=== PATIENT | female | born 1945 | race African-American/Black ===

== ENCOUNTER 2017-11-11 15:25 | Inpatient (IN) | payer OTHER ==
--- NOTE | 2017-11-11 16:20 | PDOC ---
History of Present Illness - General Chief Complaint: Pain, Acute Stated Complaint: ABD PAIN Time Seen by Provider: 11/11/17 16:14 - History of Present Illness Initial Comments: 11/11/17 20:03 The patient is a 71 year old female with a significant past medical history of HTN, DM, Afib on xarelto, who was sent from [facility] for evaluation of a lower abdominal abscess. Pt is a poor historian, does not know why she is here. Per Dr. Brooks, pt has lower abdominal wall abscess that Dr. Howell will be I&D-ing in the morning. Pt sent in for admission and IV antibiotics. Past History - Past Medical History Allergies/Adverse Reactions: Allergies Allergy/AdvReac Type Severity Reaction Status Date / Time latex Allergy Verified 11/11/17 17:09 shellfish derived Allergy Verified 11/11/17 17:09 Sulfa (Sulfonamide Allergy Verified 11/11/17 17:09 Antibiotics) [Sulfa(Sulfonamide Antibiotics)] Home Medications: Ambulatory Orders Acetaminophen [Tylenol] 650 mg PO Q6H PRN 12/26/14 Atenolol [Tenormin -] 25 mg PO DAILY 12/26/14 Enalapril Maleate [Vasotec] 2.5 mg PO DAILY 12/26/14 Insulin (Levemir) [Levemir Flexpen -] 45 units SQ AM 12/26/14 Insulin Lispro Protamin/Lispro [Humalog Mix 50-50 Vial] 18 unit SQ TID 12/26/14 Levothyroxine [Synthroid -] 50 mcg PO DAILY 12/26/14 Ranitidine HCl [Zantac] 150 mg PO BID 12/26/14 Ferrous Sulfate [Feosol] 325 mg PO BID ud 12/27/14 Atorvastatin Ca [Lipitor] 80 mg PO HS 09/24/17 Fenofibric Acid (Choline) [Trilipix] 135 mg PO DAILY 09/24/17 Insulin (Levemir) [Levemir Flexpen -] 50 units SQ HS 09/24/17 Magnesium Hydroxide [Milk of Magnesia] 400 mg PO DAILY PRN 09/24/17 Multivitamin [One Daily] 1 each PO DAILY 09/24/17 Sodium Phosphate/Na Biphos [Fleet Adult Rectal Enema -] 133 ml RC DAILY PRN Vit A/Vitamin D3/E/Aloe V/Zinc [Periguard Ointment] 100 gm TP TID 09/24/17 metFORMIN HCL [Glucophage -] 1,000 mg PO BID 09/24/17 Apixaban [Eliquis] 5 mg PO BID #90 tablet 09/30/17 Cefuroxime Axetil [Ceftin -] 500 mg PO Q12H #10 tablet 09/30/17 Anemia: Yes Asthma: No Cancer: No Cardiac Disorders: Yes (A-fib) COPD: No CHF: No Dementia: Yes Diabetes: Yes GI Disorders: Yes (GERD) Disorders: Yes (UTIs) HTN: Yes Hypercholesterolemia: Yes Psychiatric Problems: Yes (Depression) Thyroid Disease: Yes (Hypothyroid) - Surgical History Abdominal Surgery: Yes (umbilical hernia repair) Orthopedic Surgery: (RIGHT FEMORAL HEMIARTHROPLASTY) - Immunization History Immunization Up to Date: Yes - Suicide/Smoking/Psychosocial Hx Smoking Status: No Smoking History: Never smoked Have you smoked in the past 12 months: No Number of Cigarettes Smoked Daily: 0 Information on smoking cessation initiated: No Hx Alcohol Use: No Drug/Substance Use Hx: No Substance Use Type: Alcohol Hx Substance Use Treatment: No Review of Systems - Review of Systems Comments:: 11/11/17 20:07 UTO *Physical Exam - Vital Signs Last Vital Signs Temp Pulse Resp BP Pulse Ox 98.6 F 60 16 126/54 98 11/11/17 15:26 11/11/17 15:26 11/11/17 15:26 11/11/17 15:26 11/11/17 15:26 - Physical Exam Comments: 11/11/17 20:07 "GENERAL: Awake, alert, and oriented x2, smiling, in no acute distress EYES: PERRLA, EOMI, sclera anicteric, conjunctiva clear LUNGS: Breath sounds equal, clear to auscultation bilaterally. No wheezes, and no crackles HEART: Regular rate and rhythm, normal S1 and S2, no murmurs, rubs or gallops ABDOMEN: Soft, no ttp, +2x2cm oval ulcer with purulent drainage just left inferiolateral to the umbulicus with some surrounding induration EXTREMITIES: Normal range of motion, no edema. No tenderness NEUROLOGICAL: AAOx2 at baseline. Normal speech, cranial nerves intact, moves all extremities x4 SKIN: Other than abscess noted above, warm, Dry, normal turgor, no rashes or lesions noted. Heart Score/ECG Review #1 11/11/17 17:48 Twelve-lead EKG was performed and reviewed by me. Normal sinus rhythm, rate 65. Normal axis. Diffuse T-wave inversions in all leads except lead 3. No ST elevations. When compared to EKG from 09/24/2017 no significant change. ED Treatment Course - LABORATORY CBC & Chemistry Diagram: 11/11/17 16:20 11/11/17 18:55 Medical Decision Making - Medical Decision Making 11/11/17 17:49 72yo F hx HTN, DM, Afib on xarelto presents to the ED for admission for abdominal wall abscess. Dr. Howell aware, recommends IV abx and will debride in the AM. Vitals wnl. Exam with mild diffuse abd discomfort. Pt to be admitted. 11/11/17 21:31 CTAP ordered as last CT was 09/27 Case signed out to [employer] OFF[employer] Merry, pt admitted to Dr. Arenas (admitting for Dr. Brooks) Case discussed in detail with admitting physician including history, physical exam and ancillary studies. Admitting physician has assumed care for the patient, will follow all pending diagnostics and will complete the evaluation and treatment. *DC/Admit/Observation/Transfer Diagnosis at time of Disposition: Abdominal wall abscess - Discharge Dispostion Condition at time of disposition: Stable Decision to Admit order: Yes - Referrals Referrals: Shanae Brooks MD [Primary Care Provider] - - Patient Instructions - Post Discharge Activity - Attestations Physician Attestion: 11/11/17 21:50 I, Dr. Aldo Michael MD, attest that this document has been prepared under my direction and personally reviewed by me in its entirety. I further attest, that it accurately reflects all work, treatment, procedures and medical decision -making performed by me.
[2017-11-11 16:44] LABS: BASO % 0.9 % (0-2.0); EOS % 5.3 % (0-4.5); HEMATOCRIT 29.2 % (32.4-45.2); HEMOGLOBIN 9.6 GM/dL (10.7-15.3); LYMPH % 25.8 % (8-40); MCH 31.4 pg (25.7-33.7); MCHC 32.9 g/dl (32.0-36.0); MEAN CELL VOLUME 95.5 fl (80-96); MEAN PLT VOLUME 8.4 fl (7.5-11.1); MONO % 7.2 % (3.8-10.2); NEUT % 60.8 % (42.8-82.8); PLATELET COUNT 457 K/MM3 (134-434); RBC 3.06 M/mm3 (3.60-5.2); RDW 13.7 % (11.6-15.6); WHITE BLOOD COUNT 8.3 K/mm3 (4.0-10.0)
[2017-11-11] MEDS ORDERED: VANCOMYCIN 1,000 MG in DEXTROSE 5%-WATER - 250 ML IVPB ONE (17:27)
[2017-11-11] MEDS ORDERED: PIPERACILLIN/TAZOB 4.5 GM 4.5 GM in DEXTROSE 5%-WATER - 100 ML IVPB ONE (17:27)
[2017-11-11] MEDS ORDERED: VANCOMYCIN 1 GRAM (PRE-DOCKED) 1,000 MG/250 ML BAG IVPB ONE (17:33)
[2017-11-11] MEDS ORDERED: PIPERACILLIN/TAZOB 4.5 GM 4.5 GM/100 ML BAG IVPB ONE (17:33)
[2017-11-11] MEDS ORDERED: SODIUM CHLORIDE 0.9% 1000 ML INFUS.BAG IV ONE ×2 (17:47→20:16)
[2017-11-11 19:39] LABS: ALBUMIN 2.9 g/dl (3.4-5.0); ALK PHOS 42 U/L (45-117); ANION GAP 10 (8-16); BILIRUBIN,TOTAL 0.3 mg/dL (0.2-1.0); BLOOD UREA NITROGEN 62 mg/dL (7-18); CALCIUM 9.3 mg/dL (8.5-10.1); CHLORIDE 110 mmol/L (98-107); CO2 22 mmol/L (21-32); POTASSIUM 5.4 mmol/L (3.5-5.1); SGOT/AST 16 U/L (15-37); SGPT/ALT 13 U/L (12-78); SODIUM 142 mmol/L (136-145); TOT PROT 6.8 g/dl (6.4-8.2)
[2017-11-11 19:49] LABS: GLUCOSE,RANDOM 333 mg/dL (74-106)
--- NOTE | 2017-11-11 20:48 | CONSULT ---
- Consultation REQUESTING PROVIDER: CONSULT REQUEST: We have been asked to surgically evaluate this patient for ( specify). PCP: HISTORY OF PRESENT ILLNESS: CTSP for evaluation and management of a soft tissue infection of the abdominal wall; new since patients last inpatient stay here; she cannot provide a hx.; she is a resident of [facility]. PMHx: IDDM/HTN/hypothyroid/hyperlipidemiaDVT PSHx: IVC filter Home Medications Medication Instructions Recorded Acetaminophen [Tylenol] 650 mg PO Q6H PRN 12/26/14 Atenolol [Tenormin -] 25 mg PO DAILY 12/26/14 Enalapril Maleate [Vasotec] 2.5 mg PO DAILY 12/26/14 Insulin (Levemir) [Levemir Flexpen 45 units SQ AM 12/26/14 -] Insulin Lispro Protamin/Lispro 18 unit SQ TID 12/26/14 [Humalog Mix 50-50 Vial] Levothyroxine [Synthroid -] 50 mcg PO DAILY 12/26/14 Ranitidine HCl [Zantac] 150 mg PO BID 12/26/14 Ferrous Sulfate [Feosol] 325 mg PO BID ud 12/27/14 Atorvastatin Ca [Lipitor] 80 mg PO HS 09/24/17 Fenofibric Acid (Choline) 135 mg PO DAILY 09/24/17 [Trilipix] Insulin (Levemir) [Levemir Flexpen 50 units SQ HS 09/24/17 -] Magnesium Hydroxide [Milk of 400 mg PO DAILY PRN 09/24/17 Magnesia] Multivitamin [One Daily] 1 each PO DAILY 09/24/17 Sodium Phosphate/Na Biphos [Fleet 133 ml RC DAILY PRN 09/24/17 Adult Rectal Enema -] Vit A/Vitamin D3/E/Aloe V/Zinc 100 gm TP TID 09/24/17 [Periguard Ointment] metFORMIN HCL [Glucophage -] 1,000 mg PO BID 09/24/17 Apixaban [Eliquis] 5 mg PO BID #90 tablet 09/30/17 Cefuroxime Axetil [Ceftin -] 500 mg PO Q12H #10 tablet 09/30/17 Allergies Allergy/AdvReac Type Severity Reaction Status Date / Time latex Allergy Verified 11/11/17 17:09 shellfish derived Allergy Verified 11/11/17 17:09 Sulfa (Sulfonamide Allergy Verified 11/11/17 17:09 Antibiotics) [Sulfa(Sulfonamide Antibiotics)] REVIEW OF SYSTEMS: unobtainable PHYSICAL EXAM: GENERAL: Awake, alert, and oriented x 2, in no acute distress. HEAD: Normal with no signs of trauma. EYES: sclera anicteric, conjunctiva clear. NECK: Normal ROM, supple without lymphadenopathy, JVD, or masses. ABDOMEN: Soft, nontender, not distended, normoactive bowel sounds, no guarding, no rebound, no masses. No organomegaly. Soft tissue infection of the skin of the left lower abdominal wall; no crepitus/non viable skin and subcutaneous fat are present; no fluctuance MUSCULOSKELETAL: Normal ROM at all joints. No bony deformities or tenderness. No CVA tenderness. UPPER EXTREMITIES: 2+ pulses, warm, well-perfused. No cyanosis. Cap refill <2 seconds. No peripheral edema. LOWER EXTREMITIES: 2+ pulses, warm, well-perfused. No calf tenderness. No peripheral edema. NEUROLOGICAL: Normal speech, gait not observed. PSYCH: Cooperative. Good eye contact. Inappropriate mood and affect. SKIN: Warm, dry, normal turgor, no rashes or lesions noted except as above. Vital Signs Temperature 98.0 F 11/11/17 18:53 Pulse Rate 18 L 11/11/17 18:53 Respiratory Rate 18 11/11/17 18:53 Blood Pressure 118/78 11/11/17 18:53 O2 Sat by Pulse Oximetry (%) 98 11/11/17 18:53 Lab Results WBC 8.3 K/mm3 (4.0-10.0) 11/11/17 16:20 RBC 3.06 M/mm3 (3.60-5.2) L 11/11/17 16:20 Hgb 9.6 GM/dL (10.7-15.3) L 11/11/17 16:20 Hct 29.2 % (32.4-45.2) L 11/11/17 16:20 MCV 95.5 fl (80-96) 11/11/17 16:20 MCHC 32.9 g/dl (32.0-36.0) 11/11/17 16:20 RDW 13.7 % (11.6-15.6) 11/11/17 16:20 Plt Count 457 K/MM3 (134-434) H 11/11/17 16:20 Sodium 142 mmol/L (136-145) 11/11/17 18:55 Potassium 5.4 mmol/L (3.5-5.1) H 11/11/17 18:55 Chloride 110 mmol/L (98-107) H 11/11/17 18:55 Carbon Dioxide 22 mmol/L (21-32) 11/11/17 18:55 Anion Gap 10 (8-16) 11/11/17 18:55 BUN 62 mg/dL (7-18) H 11/11/17 18:55 Creatinine 2.0 mg/dL (0.55-1.02) H 11/11/17 18:55 Random Glucose 333 mg/dL (74-106) H* 11/11/17 18:55 Calcium 9.3 mg/dL (8.5-10.1) 11/11/17 18:55 Blood Type B POSITIVE 11/11/17 16:20 Antibody Screen Negative 11/11/17 16:20 labs reviewed IMP:soft tissue infection lower left abdominal wall;ARF; electrolyte abnormalities PLAN: Optimize patient as she will need to go to the OR for debridement of the abdominal wall 11/12/17; keep NPO after MN; will f/u.Will need IVF/IVABS/renal and medical evaluation. Gonzalo Howell MD FACS
--- NOTE | 2017-11-11 21:12 | HP ---
Admitting History and Physical - Admission Chief Complaint: Abdominal Abscess History of Present Illness: This is a 71 y/o woman from [facility] with a significant past medical history of HTN, DM, Afib (on Xarelto). Who presents to the ED for evaluation of a lower abdominal abscess, sent in for admission and IV antibiotics. Pt is a poor historian, does not know why she is here. Per Dr. Brooks, pt has lower abdominal wall abscess that Dr. Howell will take to the OR for an I&D in the morning. Patient denies fever, chills, cough, SOB, CP, N/V/D, dysuria. History Source: Medical Record, Transfer Record Limitations to Obtaining History: Poor Historian - Past Medical History Cardiovascular: Yes: AFIB, Deep Vein Thrombosis, HTN, Hyperlipdemia Heme/Onc: Yes: Anemia Endocrine: Yes: Diabetes Mellitus, Hypothyroidism - Advance Directives Advance Directives: Yes: MOLST (Do CPR, IV Fluids, Use ABX, Send to Hospital- Surrogate Tereso Sprague (daughter)) - Smoking History Smoking history: Never smoked Have you smoked in the past 12 months: No Aproximately how many cigarettes per day: 0 - Alcohol/Substance Use Hx Alcohol Use: No History of Substance Use: reports: None - Social History Usual Living Arrangement: Yes: Assisted ADL: Support Services 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 History of Recent Travel: No Home Medications - Allergies Allergies/Adverse Reactions: Allergies Allergy/AdvReac Type Severity Reaction Status Date / Time latex Allergy Verified 11/11/17 17:09 shellfish derived Allergy Verified 11/11/17 17:09 Sulfa (Sulfonamide Allergy Verified 11/11/17 17:09 Antibiotics) [Sulfa(Sulfonamide Antibiotics)] - Home Medications Home Medications: Ambulatory Orders Acetaminophen [Tylenol] 650 mg PO Q6H PRN 12/26/14 Atenolol [Tenormin -] 25 mg PO DAILY 12/26/14 Enalapril Maleate [Vasotec] 2.5 mg PO DAILY 12/26/14 Insulin (Levemir) [Levemir Flexpen -] 45 units SQ AM 12/26/14 Insulin Lispro Protamin/Lispro [Humalog Mix 50-50 Vial] 18 unit SQ TID 12/26/14 Levothyroxine [Synthroid -] 50 mcg PO DAILY 12/26/14 Ranitidine HCl [Zantac] 150 mg PO BID 12/26/14 Ferrous Sulfate [Feosol] 325 mg PO BID ud 12/27/14 Atorvastatin Ca [Lipitor] 80 mg PO HS 09/24/17 Fenofibric Acid (Choline) [Trilipix] 135 mg PO DAILY 09/24/17 Insulin (Levemir) [Levemir Flexpen -] 50 units SQ HS 09/24/17 Magnesium Hydroxide [Milk of Magnesia] 400 mg PO DAILY PRN 09/24/17 Multivitamin [One Daily] 1 each PO DAILY 09/24/17 Sodium Phosphate/Na Biphos [Fleet Adult Rectal Enema -] 133 ml RC DAILY PRN Vit A/Vitamin D3/E/Aloe V/Zinc [Periguard Ointment] 100 gm TP TID 09/24/17 metFORMIN HCL [Glucophage -] 1,000 mg PO BID 09/24/17 Apixaban [Eliquis] 5 mg PO BID #90 tablet 09/30/17 Cefuroxime Axetil [Ceftin -] 500 mg PO Q12H #10 tablet 09/30/17 Family Disease History - Family Disease History Family Disease History: Diabetes: Brother, Other: Sister Review of Systems Unable to obtain ROS, reason: Poor Historian Physical Examination Vital Signs: Vital Signs Temperature 98.0 F 11/11/17 18:53 Pulse Rate 18 L 11/11/17 18:53 Respiratory Rate 18 11/11/17 18:53 Blood Pressure 118/78 11/11/17 18:53 O2 Sat by Pulse Oximetry (%) 98 11/11/17 18:53 Constitutional: Yes: No Distress, Calm Eyes: Yes: WNL, Conjunctiva Clear, EOM Intact, PERRL HENT: Yes: WNL, Atraumatic, Normocephalic Neck: Yes: WNL, Supple, Trachea Midline Cardiovascular: Yes: Pulse Irregular, S1, S2 Respiratory: Yes: WNL, Regular, CTA Bilaterally Gastrointestinal: Yes: Normal Bowel Sounds, Distention, Tenderness Renal/: Yes: Incontinence Breast(s): Yes: WNL Musculoskeletal: Yes: WNL Extremities: Yes: WNL Peripheral Pulses WNL: Yes Wound/Incision: Yes: Dressing Removed (serous) Neurological: Yes: Alert, Confusion, Cran Nerves II-XII Intact Psychiatric: Yes: Alert Labs: CBC, BMP 11/11/17 16:20 11/11/17 18:55 Laboratory Results - last 24 hr 11/11/17 11/11/17 11/11/17 16:20 16:20 16:20 WBC 8.3 RBC 3.06 L Hgb 9.6 L Hct 29.2 L MCV 95.5 MCH 31.4 MCHC 32.9 RDW 13.7 Plt Count 457 H MPV 8.4 Absolute Neuts (auto) 5.1 Neutrophils % 60.8 Lymphocytes % 25.8 Monocytes % 7.2 Eosinophils % 5.3 H Basophils % 0.9 Nucleated RBC % 0 PTT (Actin FS) 31.1 Sodium Cancelled Potassium Cancelled Chloride Cancelled Carbon Dioxide Cancelled Anion Gap Cancelled BUN Cancelled Creatinine Cancelled Creat Clearance w eGFR Cancelled Random Glucose Cancelled Lactic Acid Calcium Cancelled Phosphorus Magnesium Cancelled Total Bilirubin Cancelled AST Cancelled ALT Cancelled Alkaline Phosphatase Cancelled Troponin I Cancelled Total Protein Cancelled Albumin Cancelled Lipase Cancelled Blood Type Antibody Screen 11/11/17 11/11/17 11/11/17 16:20 16:20 18:55 WBC RBC Hgb Hct MCV MCH MCHC RDW Plt Count MPV Absolute Neuts (auto) Neutrophils % Lymphocytes % Monocytes % Eosinophils % Basophils % Nucleated RBC % PTT (Actin FS) Sodium 142 Potassium 5.4 H Chloride 110 H Carbon Dioxide 22 Anion Gap 10 BUN 62 H Creatinine 2.0 H Creat Clearance w eGFR 24.56 Random Glucose 333 H* Lactic Acid 2.7 H* Calcium 9.3 Phosphorus Magnesium Total Bilirubin 0.3 AST 16 ALT 13 Alkaline Phosphatase 42 L Troponin I Total Protein 6.8 Albumin 2.9 L Lipase Blood Type B POSITIVE Antibody Screen Negative 11/11/17 11/11/17 11/12/17 18:55 20:00 05:55 WBC RBC Hgb Hct MCV MCH MCHC RDW Plt Count MPV Absolute Neuts (auto) Neutrophils % Lymphocytes % Monocytes % Eosinophils % Basophils % Nucleated RBC % PTT (Actin FS) Sodium Potassium Chloride Carbon Dioxide Anion Gap BUN Creatinine Creat Clearance w eGFR Random Glucose Lactic Acid 3.0 H* Calcium Phosphorus Magnesium Total Bilirubin AST ALT Alkaline Phosphatase Troponin I 0.26 H 0.26 H Total Protein Albumin Lipase Blood Type Antibody Screen 11/12/17 05:55 WBC RBC Hgb Hct MCV MCH MCHC RDW Plt Count MPV Absolute Neuts (auto) Neutrophils % Lymphocytes % Monocytes % Eosinophils % Basophils % Nucleated RBC % PTT (Actin FS) Sodium 144 Potassium 4.9 Chloride 114 H Carbon Dioxide 21 Anion Gap 9 BUN 48 H Creatinine 1.7 H Creat Clearance w eGFR 29.63 Random Glucose 209 H Lactic Acid Calcium 9.1 Phosphorus 2.3 L Magnesium 2.0 Total Bilirubin AST ALT Alkaline Phosphatase Troponin I Total Protein Albumin Lipase Blood Type Antibody Screen Intake & Output 11/09/17 11/10/17 11/11/17 11/12/17 23:59 23:59 23:59 23:59 Weight 56.427 kg Imaging - Results Chest X-ray: Report Reviewed (No acute pathology), Image Reviewed Cat Scan: Report Reviewed (subcutaneous edema along the right lateral aspect of the abdominal and to the pelvic wall, No drainable fluid collection is identified Moderate gastric distention Prominent rectal fecal retention/ impaction Cholelithiasis), Image Reviewed EKG: Image Reviewed Problem List - Problems (1) Sepsis Assessment/Plan: - Likely secondary to abdominal wall abscess - Criteria Met II: BUN 62, LA 2.7~ 3.0 - qSOFA- 0 - NS 500ml bolus x2 given in ED - Continue gentle IVF- monitor for HF - Trend LA - Continue Vancomycin and Zosyn - Blood Cultures-pending - Urine Culture-pending - Monitor CBC, BMP - Monitor vitals- maintain MAP > 65 Code(s): A41.9 - SEPSIS, UNSPECIFIED ORGANISM (2) Abdominal wall abscess Assessment/Plan: - CTAP- reviewed - Appreciate Surgical consult - Continue Zosyn, Vancomycin - Appreciate ID consult - Monitor CBC, BMP - Monitor vitals - NPO Code(s): L02.211 - CUTANEOUS ABSCESS OF ABDOMINAL WALL (3) Afib Assessment/Plan: - stable - [id number] 4 - EKG- NSR ST & T wave abnormality, prolonged QTc - Will hold Xarelto secondary to OR procedure in am - Heparin SQ for DVT ppx tonight Code(s): I48.91 - UNSPECIFIED ATRIAL FIBRILLATION Qualifiers: Atrial fibrillation type: chronic Qualified Code(s): I48.2 - Chronic atrial fibrillation (4) Elevated troponin Assessment/Plan: - Likely secondary to ischemic demand vs Sepsis - Serial Enzymes - Cardiology aware, following - On exam, pt denies CP, palpitations, SOB at present Code(s): R74.8 - ABNORMAL LEVELS OF OTHER SERUM ENZYMES (5) CKD (chronic kidney disease) stage 3, GFR 30-59 ml/min Assessment/Plan: -Continue to monitor and treat with interventions accordingly - Avoid nephrotoxic agents Code(s): N18.3 - CHRONIC KIDNEY DISEASE, STAGE 3 (MODERATE) (6) Dementia Assessment/Plan: - Fall Precautions Code(s): F03.90 - UNSPECIFIED DEMENTIA WITHOUT BEHAVIORAL DISTURBANCE (7) HTN (hypertension) Assessment/Plan: - stable - Monitor BP - Continue home meds Code(s): I10 - ESSENTIAL (PRIMARY) HYPERTENSION (8) IDDM (insulin dependent diabetes mellitus) Assessment/Plan: - Likely secondary to Infection - BGMs - ISS when diet resumed Code(s): E11.9 - TYPE 2 DIABETES MELLITUS WITHOUT COMPLICATIONS; Z79.4 - SNF (CURRENT) USE OF INSULIN Assessment/Plan 72 y/o woman admitted for Sepsis secondary to Abdominal Wall Abscess for further evaluation of their emergent condition. Plan: FEN - NS@42cc/hr - Replete lytes prn - NPO DVT ppx - OOB - SCDs - Heparin SQ Code Status: Full Code, JORDAN, Tereso Valverdeir, Surrogate (Daughter) Dispo: Requires Inpatient Care Visit type - Emergency Visit Emergency Visit: Yes ED Registration Date: 11/11/17 Care time: The patient presented to the Emergency Department on the above date and was hospitalized for further evaluation of their emergent condition. - New Patient This patient is new to me today: Yes Date on this admission: 11/11/17 - Critical Care Critical Care patient: No Hospitalist Screening - Colonoscopy Questionnaire Colonoscopy Questionnaire: Colonoscopy Questionnaire - Patient: 50 - 75 years old and never had a screening colonoscopy: Unknown History of colon or rectal polyps, or CA: Unknown History of IBD, Crohn's disease or UC: Unknown History of abdominal radiation therapy as a child: Unknown - Relative: 1 with colon or rectal CA, or polyps at age 60 or younger: Unknown Colon or rectal CA diagnosed at age 45 or younger: Unknown Multiple relatives with colon or rectal CA: Unknown - Outcome: Screening Result: Negative Screen
[2017-11-11] MEDS ORDERED: ATORVASTATIN CA 80 MG TABLET (FP) PO ONE (21:15)
[2017-11-11] MEDS ORDERED: HEPARIN NA (PORCINE) 5,000 UNITS/ML 1ML VIAL SQ SCH (22:00)
[2017-11-11] MEDS ORDERED: SODIUM CHLORIDE 1,000 ML IV SCH (23:00)
[2017-11-11] MEDS ORDERED: ATORVASTATIN CA 80 MG TABLET (FP) ONE (23:29)
[2017-11-11] MEDS ORDERED: HEPARIN NA (PORCINE) 5,000 UNITS/ML 1ML VIAL ONE (23:29)
[2017-11-12] MEDS ORDERED: PIPERACILLIN/TAZOB 4.5 GM 4.5 GM in DEXTROSE 5%-WATER 100 ML IVPB SCH ×2 (02:00→10:00)
[2017-11-12] MEDS ORDERED: PIPERACILLIN/TAZOB 4.5 GM 4.5 GM/100 ML BAG IVPB ONE (02:40)
[2017-11-12] MEDS ORDERED: VANCOMYCIN 1 GRAM (PRE-DOCKED) 1,000 MG/250 ML BAG IVPB ONE (05:28)
[2017-11-12] MEDS ORDERED: VANCOMYCIN 1 GM PREMIX - 1 GM/200 ML BAG IVPB ONE (06:00)
[2017-11-12 06:23] LABS: EOS % 6.7 % (0-4.5); HEMATOCRIT 28.2 % (32.4-45.2); HEMOGLOBIN 9.4 GM/dL (10.7-15.3); LYMPH % 31.5 % (8-40); MCH 31.8 pg (25.7-33.7); MCHC 33.4 g/dl (32.0-36.0); MEAN CELL VOLUME 95.3 fl (80-96); MEAN PLT VOLUME 7.9 fl (7.5-11.1); MONO % 7.5 % (3.8-10.2); NEUT % 53.3 % (42.8-82.8); PLATELET COUNT 441 K/MM3 (134-434); RBC 2.96 M/mm3 (3.60-5.2); RDW 13.5 % (11.6-15.6); WHITE BLOOD COUNT 7.6 K/mm3 (4.0-10.0)
[2017-11-12 06:40] LABS: ANION GAP 9 (8-16); BLOOD UREA NITROGEN 48 mg/dL (7-18); CALCIUM 9.1 mg/dL (8.5-10.1); CHLORIDE 114 mmol/L (98-107); CO2 21 mmol/L (21-32); CREATININE 1.7 mg/dL (0.55-1.02); GLUCOSE,RANDOM 209 mg/dL (74-106); PHOSPHOROUS 2.3 mg/dL (2.5-4.9); POTASSIUM 4.9 mmol/L (3.5-5.1); SODIUM 144 mmol/L (136-145)
[2017-11-12] MEDS ORDERED: ONDANSETRON 4 MG/2 ML VIAL IVPUSH PRN (08:28)
[2017-11-12] MEDS ORDERED: PROPOFOL 20 ML ONE (08:30)
--- NOTE | 2017-11-12 09:23 | OP ---
Operative Note - Note: Operative Date: 11/12/17 Pre-Operative Diagnosis: Abdominal wall abscess Operation: Excisional debridement of abdominal wall skin, subcutaneous tissue, and superficial fascia. Post-Operative Diagnosis: Same as Pre-op Surgeon: Gonzalo Howell [employer] Crm Developer: Ky Orlando Estimated Blood Loss (mls): 10 Operative Report Dictated: Yes
--- NOTE | 2017-11-12 09:24 | SURG ---
Surgery Business Process Lead Note Business Process Lead: Ky Orlando PA-C Date of Service: 11/12/17 Diagnosis: Abdominal wall abscess Procedure: Excisional debridement of abdominal wall skin, subcutaneous tissue, and superficial fascia. I was present for the entirety of the operative procedure. For further detail, please refer to operative report.
[2017-11-12] MEDS: SODIUM CHLORIDE 1,000 ML IV SCH (09:33)
[2017-11-12] MEDS ORDERED: MAGNESIUM HYDROX 2400MG/30ML ORAL SUSPENSION 30 ML CUP PO PRN (09:33)
[2017-11-12] MEDS ORDERED: metFORMIN HCL 500 MG TABLET (FP) PO SCH (10:00)
[2017-11-12] MEDS ORDERED: HEPARIN NA (PORCINE) 5,000 UNITS/ML 1ML VIAL SQ SCH (10:00)
[2017-11-12] MEDS ORDERED: VANCOMYCIN 1,000 MG in DEXTROSE 5%-WATER - 250 ML IVPB SCH (10:00)
[2017-11-12] MEDS ORDERED: MORPHINE SULFATE 2 MG/ML VIAL IVPUSH PRN (11:28)
--- NOTE | 2017-11-12 11:36 | PN ---
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, Physician History of Present Illness: pt seen/ examined in RR s/p --Excisional debridement of abdominal wall skin, subcutaneous tissue, and superficial fascia today. chart reviewed. Awake. No distress Pain + - requests meds. - Current Medication List Current Medications: Active Medications Acetaminophen (Tylenol -) 650 mg PO Q6H PRN PRN Reason: PAIN OR FEVER Apixaban (Eliquis -) 5 mg PO BID [facility] Atenolol (Tenormin -) 25 mg PO DAILY [facility] Atorvastatin Calcium (Lipitor -) 80 mg PO HS [facility] Enalapril Maleate (Vasotec -) 2.5 mg PO DAILY [facility] Fenofibric Acid (Trilipix -) 135 mg PO DAILY [facility] Ferrous Sulfate (Feosol -) 325 mg PO BID [facility] Piperacillin Sod/Tazobactam (Sod 4.5 gm/ Dextrose) 100 mls @ 200 mls/hr IVPB Q8H-IV [facility] Stop: 11/12/17 10:29 Sodium Chloride (Normal Saline -) 1,000 mls @ 42 mls/hr IV ASDIR [facility] Vancomycin HCl 1,000 mg/ (Dextrose) 250 mls @ 166.667 mls/hr IVPB Q12H [facility]; Protocol Piperacillin Sod/Tazobactam (Sod 4.5 gm/ Dextrose) 100 mls @ 200 mls/hr IVPB Q8H-IV [facility]; Protocol Insulin Aspart (Novolog Vial Sliding Scale -) 1 vial SQ ACHS [facility]; Protocol Levothyroxine Sodium (Synthroid -) 50 mcg PO DAILY [facility] Magnesium Hydroxide (Milk Of Magnesia -) ml PO DAILY PRN PRN Reason: CONSTIPATION Morphine Sulfate (Morphine Sulfate) 2 mg IVPUSH Q4H PRN PRN Reason: PAIN LEVEL 6-10 Non-Formulary Medication (Insulin (Levemir) [Levemir Flexpen -]) 50 units SQ HS [facility] Non-Formulary Medication (Insulin (Levemir) [Levemir Flexpen -]) 45 units SQ AM [facility] Non-Formulary Medication (Insulin Lispro Protamin/Lispro [Humalog Mix 50-50 Vial ]) 18 unit SQ TID [facility] - Objective Vital Signs: Vital Signs Temperature 98.6 F 11/12/17 09:23 Pulse Rate 69 11/12/17 09:23 Respiratory Rate 10 L 11/12/17 09:23 Blood Pressure 151/68 11/12/17 09:23 O2 Sat by Pulse Oximetry (%) 100 11/12/17 09:23 Constitutional: Yes: No Distress, Calm Eyes: Yes: Conjunctiva Clear Neck: Yes: Supple Cardiovascular: Yes: Regular Rate and Rhythm Respiratory: Yes: Diminished Gastrointestinal: Yes: Soft Edema: No Neurological: Yes: Alert Psychiatric: Yes: Alert Labs: CBC, BMP 11/12/17 05:55 11/12/17 05:55 Problem List - Problems (1) Abdominal wall abscess Code(s): L02.211 - CUTANEOUS ABSCESS OF ABDOMINAL WALL (2) Acute kidney injury Code(s): N17.9 - ACUTE KIDNEY FAILURE, UNSPECIFIED (3) Afib Code(s): I48.91 - UNSPECIFIED ATRIAL FIBRILLATION Qualifiers: Atrial fibrillation type: chronic Qualified Code(s): I48.2 - Chronic atrial fibrillation (4) Elevated troponin Code(s): R74.8 - ABNORMAL LEVELS OF OTHER SERUM ENZYMES (5) HTN (hypertension) Code(s): I10 - ESSENTIAL (PRIMARY) HYPERTENSION (6) IDDM (insulin dependent diabetes mellitus) Code(s): E11.9 - TYPE 2 DIABETES MELLITUS WITHOUT COMPLICATIONS; Z79.4 - [facility] (CURRENT) USE OF INSULIN Assessment/Plan Pain control Morphine for pain Fluids Meds reviewed D/c metformin and heparin s/q Restart on Eliquis Cardiology to follow Pt denies cp. will follow discussed with nursing staff. will follow
[2017-11-12] MEDS: ENALAPRIL MALEATE 2.5 MG TABLET (FP) PO SCH (12:15)
[2017-11-12] MEDS: ATENOLOL 25 MG TABLET (FP) PO SCH (12:15)
[2017-11-12] MEDS ORDERED: PIPERACILLIN/TAZOB 4.5 GM 4.5 GM in DEXTROSE 5%-WATER 100 ML IVPB ONE (13:15)
[2017-11-12] MEDS ORDERED: PIPERACILLIN/TAZOBACTAM 4.5 GM VIAL IVPB ONE (13:30)
[2017-11-12] MEDS ORDERED: PATIENT'S OWN MEDICATION (NON-FORMULARY) (Insulin Lispro Protamin/Lispro [Humalog Mix 50-5 SQ SCH (14:00)
--- NOTE | 2017-11-12 14:02 | EKG ---
Test Reason : Blood Pressure : / mmHG Vent. Rate : 065 BPM Atrial Rate : 065 BPM P-R Int : 142 ms QRS Dur : 092 ms QT Int : 458 ms P-R-T Axes : 028 035 176 degrees QTc Int : 476 ms NORMAL SINUS RHYTHM PROLONGED QT ABNORMAL ECG WHEN COMPARED WITH ECG OF 24-SEP-2017 01:00, NO SIGNIFICANT CHANGE WAS FOUND Confirmed by JAVIER KULKARNI MD ([id number]) on 11/12/2017 2:01:40 PM Referred By: Confirmed By:JAVIER KULKARNI MD
--- NOTE | 2017-11-12 14:32 | CON.ID ---
Consult Consult Specialty:: infectious diseases Reason for Consultation:: abd wall abscess - History of Present Illness Chief Complaint: abd wall pain History of Present Illness: 71 y/o woman from [facility] with a significant past medical history of HTN, DM, Afib who was admitted with abd abscess .history obtained from the charts as patient unable to give history and now post op patient was seen by surgery and was taken to the operating room for i and of the abscess which the patient underwent. 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 History of Recent Travel: No Home Medications - Allergies Allergies/Adverse Reactions: Allergies Allergy/AdvReac Type Severity Reaction Status Date / Time latex Allergy Verified 11/11/17 17:09 shellfish derived Allergy Verified 11/11/17 17:09 Sulfa (Sulfonamide Allergy Verified 11/11/17 17:09 Antibiotics) [Sulfa(Sulfonamide Antibiotics)] - Home Medications Home Medications: Ambulatory Orders Acetaminophen [Tylenol] 650 mg PO Q6H PRN 12/26/14 Atenolol [Tenormin -] 25 mg PO DAILY 12/26/14 Enalapril Maleate [Vasotec] 2.5 mg PO DAILY 12/26/14 Insulin (Levemir) [Levemir Flexpen -] 45 units SQ AM 12/26/14 Insulin Lispro Protamin/Lispro [Humalog Mix 50-50 Vial] 18 unit SQ TID 12/26/14 Levothyroxine [Synthroid -] 50 mcg PO DAILY 12/26/14 Ranitidine HCl [Zantac] 150 mg PO BID 12/26/14 Ferrous Sulfate [Feosol] 325 mg PO BID ud 12/27/14 Atorvastatin Ca [Lipitor] 80 mg PO HS 09/24/17 Fenofibric Acid (Choline) [Trilipix] 135 mg PO DAILY 09/24/17 Insulin (Levemir) [Levemir Flexpen -] 50 units SQ HS 09/24/17 Magnesium Hydroxide [Milk of Magnesia] 400 mg PO DAILY PRN 09/24/17 Multivitamin [One Daily] 1 each PO DAILY 09/24/17 Sodium Phosphate/Na Biphos [Fleet Adult Rectal Enema -] 133 ml RC DAILY PRN Vit A/Vitamin D3/E/Aloe V/Zinc [Periguard Ointment] 100 gm TP TID 09/24/17 metFORMIN HCL [Glucophage -] 1,000 mg PO BID 09/24/17 Apixaban [Eliquis] 5 mg PO BID #90 tablet 09/30/17 Cefuroxime Axetil [Ceftin -] 500 mg PO Q12H #10 tablet 09/30/17 Family Disease History - Family Disease History Family Disease History: Diabetes: Brother, Other: Sister Review of Systems Unable to obtain ROS, reason: unable to obtain Physical Exam Vital Signs: Vital Signs Temperature 98.6 F 11/12/17 09:23 Pulse Rate 60 11/12/17 14:00 Respiratory Rate 16 11/12/17 14:00 Blood Pressure 153/68 11/12/17 14:00 O2 Sat by Pulse Oximetry (%) 100 11/12/17 14:00 Constitutional: Yes: Well Nourished, No Distress, Calm Eyes: Yes: Conjunctiva Clear HENT: Yes: Atraumatic, Normocephalic Neck: Yes: Supple, Trachea Midline Cardiovascular: Yes: Regular Rate and Rhythm Respiratory: Yes: Regular, CTA Bilaterally Gastrointestinal: Yes: Soft, Other (dressing present on the abdomen) Musculoskeletal: Yes: WNL Extremities: Yes: WNL Wound/Incision: Yes: Dressing Dry and Intact Neurological: Yes: Alert Labs: CBC, BMP 11/12/17 05:55 11/12/17 05:55 Imaging - Results Chest X-ray: Report Reviewed, Image Reviewed Cat Scan: Report Reviewed, Image Reviewed Assessment/Plan Problem List - Problems (1) Sepsis Code(s): A41.9 - SEPSIS, UNSPECIFIED ORGANISM (2) Abdominal wall abscess Code(s): L02.211 - CUTANEOUS ABSCESS OF ABDOMINAL WALL (3) Afib Code(s): I48.91 - UNSPECIFIED ATRIAL FIBRILLATION Qualifiers: Atrial fibrillation type: chronic Qualified Code(s): I48.2 - Chronic atrial fibrillation (4) Elevated troponin Code(s): R74.8 - ABNORMAL LEVELS OF OTHER SERUM ENZYMES (5) CKD (chronic kidney disease) stage 3, GFR 30-59 ml/min Code(s): N18.3 - CHRONIC KIDNEY DISEASE, STAGE 3 (MODERATE) (6) Dementia Code(s): F03.90 - UNSPECIFIED DEMENTIA WITHOUT BEHAVIORAL DISTURBANCE (7) HTN (hypertension) Code(s): I10 - ESSENTIAL (PRIMARY) HYPERTENSION (8) IDDM (insulin dependent diabetes mellitus) Code(s): E11.9 - TYPE 2 DIABETES MELLITUS WITHOUT COMPLICATIONS; Z79.4 - ALF (CURRENT) USE OF INSULIN patient has already vanco and deep plan await for cx results continue phin might add clinda instead of vanco tomorrow will see and decide rest as per the team
[2017-11-12 16:12] VITALS: BMI 20.5
[2017-11-12] MEDS: FERROUS SO4 325 MG TABLET (FP) PO SCH ×2 (16:22→21:53)
[2017-11-12] MEDS: FENOFIBRIC ACID 135 MG CAP PO SCH (16:22)
[2017-11-12] MEDS: LEVOTHYROXINE NA 100 MCG TABLET (FP) PO SCH (16:22)
[2017-11-12] MEDS: INSULIN SLIDING SCALE (NOVOLOG) 1 VIAL SQ SCH ×2 (17:39→22:02)
[2017-11-12] MEDS ORDERED: DEXTROSE 5%-WATER - 50 ML IVPB ONE (18:31)
[2017-11-12] MEDS ORDERED: PIPERACILLIN/TAZOBACTAM 2.25 GM VIAL IVPB ONE (18:31)
[2017-11-12] MEDS: PIPERACILLIN/TAZOB 2.25 GM 2.25 GM in DEXTROSE 5%-WATER - 50 ML IVPB SCH (18:33)
--- NOTE | 2017-11-12 20:17 | CON.CARD ---
Consult Consult Specialty:: cardiology - History of Present Illness History of Present Illness: The patient is a 71 year old black female with a significant past medical history of HTN, DM, Afib on xarelto, who was sent from [facility] for evaluation of a lower abdominal abscess. Pt is a poor historian, does not know why she is here. Per Dr. Brooks, pt has lower abdominal wall abscess that Dr. Howell will be I&D-ing in the morning. Pt sent in for admission and IV antibiotics. 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 History of Recent Travel: No Home Medications - Allergies Allergies/Adverse Reactions: Allergies Allergy/AdvReac Type Severity Reaction Status Date / Time latex Allergy Verified 11/11/17 17:09 shellfish derived Allergy Verified 11/11/17 17:09 Sulfa (Sulfonamide Allergy Verified 11/11/17 17:09 Antibiotics) [Sulfa(Sulfonamide Antibiotics)] - Home Medications Home Medications: Ambulatory Orders Acetaminophen [Tylenol] 650 mg PO Q6H PRN 12/26/14 Atenolol [Tenormin -] 25 mg PO DAILY 12/26/14 Enalapril Maleate [Vasotec] 2.5 mg PO DAILY 12/26/14 Insulin (Levemir) [Levemir Flexpen -] 45 units SQ AM 12/26/14 Insulin Lispro Protamin/Lispro [Humalog Mix 50-50 Vial] 18 unit SQ TID 12/26/14 Levothyroxine [Synthroid -] 50 mcg PO DAILY 12/26/14 Ranitidine HCl [Zantac] 150 mg PO BID 12/26/14 Ferrous Sulfate [Feosol] 325 mg PO BID ud 12/27/14 Atorvastatin Ca [Lipitor] 80 mg PO HS 09/24/17 Fenofibric Acid (Choline) [Trilipix] 135 mg PO DAILY 09/24/17 Insulin (Levemir) [Levemir Flexpen -] 50 units SQ HS 09/24/17 Magnesium Hydroxide [Milk of Magnesia] 400 mg PO DAILY PRN 09/24/17 Multivitamin [One Daily] 1 each PO DAILY 09/24/17 Sodium Phosphate/Na Biphos [Fleet Adult Rectal Enema -] 133 ml RC DAILY PRN Vit A/Vitamin D3/E/Aloe V/Zinc [Periguard Ointment] 100 gm TP TID 09/24/17 metFORMIN HCL [Glucophage -] 1,000 mg PO BID 09/24/17 Apixaban [Eliquis] 5 mg PO BID #90 tablet 09/30/17 Cefuroxime Axetil [Ceftin -] 500 mg PO Q12H #10 tablet 09/30/17 Family Disease History - Family Disease History Family Disease History: Diabetes: Brother, Other: Sister Vital Signs: Vital Signs Temperature 98.4 F 11/12/17 16:17 Pulse Rate 54 L 11/12/17 16:17 Respiratory Rate 20 11/12/17 16:17 Blood Pressure 125/55 11/12/17 16:17 O2 Sat by Pulse Oximetry (%) 95 11/12/17 16:17 - Other Data Labs, Other Data: CBC, BMP 11/12/17 05:55 11/12/17 05:55 Troponin, BNP 11/12/17 11/12/17 05:55 12:24 Troponin I 0.26 H 0.29 H Troponin, BNP 11/12/17 11/12/17 05:55 12:24 Troponin I 0.26 H 0.29 H Problem List - Problems (1) Abdominal wall abscess Code(s): L02.211 - CUTANEOUS ABSCESS OF ABDOMINAL WALL (2) Sepsis Code(s): A41.9 - SEPSIS, UNSPECIFIED ORGANISM (3) Afib Assessment/Plan: on atenolol for HR control. On apixaban for anticoagulation. Code(s): I48.91 - UNSPECIFIED ATRIAL FIBRILLATION Qualifiers: Atrial fibrillation type: chronic Qualified Code(s): I48.2 - Chronic atrial fibrillation (4) CKD (chronic kidney disease) stage 3, GFR 30-59 ml/min Code(s): N18.3 - CHRONIC KIDNEY DISEASE, STAGE 3 (MODERATE) (5) Elevated troponin Assessment/Plan: TNI 0.26-->0.29; CK WNL EKG: no STT changes (no significant change from 08/2017 EKG). The level of TNI is similar to that noted 08/2017. Contributing factors may include renal dysfunctiion, CHF, sepsis resutling in demand ischemia. ECHO 09/15: normal LVEF; no regional wall motion abnormalities. Pt is asymptomatic. With pt's multiple CAD risks and high Martell score, would consider conronary artery evaluation (stress MIBI) when stable Code(s): R74.8 - ABNORMAL LEVELS OF OTHER SERUM ENZYMES (6) Chronic diastolic CHF (congestive heart failure) Assessment/Plan: on enalapril. Code(s): I50.32 - CHRONIC DIASTOLIC (CONGESTIVE) HEART FAILURE (7) Hyperlipidemia Assessment/Plan: on fibrate and high-dose atorvastatin (very high levels of LDL and triglycerides in 2010). F/u lipid panel. F/u LFTS with this combination of medications. Code(s): E78.5 - HYPERLIPIDEMIA, UNSPECIFIED (8) Diabetes Assessment/Plan: on enalapril (DM; HTN; renal dysfunction) F/u BUN/Cr, electrolytes. Code(s): E11.9 - TYPE 2 DIABETES MELLITUS WITHOUT COMPLICATIONS
[2017-11-12] MEDS ORDERED: PT OWN MED DRAWER 7, Y5N ONE (21:28)
[2017-11-12] MEDS: ATORVASTATIN CA 80 MG TABLET (FP) PO SCH (21:53)
[2017-11-13] MEDS: APIXABAN 5 MG TABLET PO SCH ×3 (00:04→21:05)
[2017-11-13] MEDS ORDERED: DEXTROSE 5%-WATER - 50 ML IVPB ONE ×2 (01:36→16:59)
[2017-11-13] MEDS ORDERED: PIPERACILLIN/TAZOBACTAM 2.25 GM VIAL IVPB ONE ×2 (01:36→16:59)
[2017-11-13] MEDS: PIPERACILLIN/TAZOB 2.25 GM 2.25 GM in DEXTROSE 5%-WATER - 50 ML IVPB SCH ×3 (02:11→17:30)
[2017-11-13] MEDS: LEVOTHYROXINE NA 100 MCG TABLET (FP) PO SCH (06:49)
[2017-11-13] MEDS: INSULIN SLIDING SCALE (NOVOLOG) 1 VIAL SQ SCH ×4 (06:53→21:03)
[2017-11-13] MEDS: INSULIN (LEVEMIR) 100 UNITS/ML UNITS SQ SCH (06:53)
[2017-11-13 07:30] LABS: EOS % 2.8 % (0-4.5); HEMATOCRIT 26.6 % (32.4-45.2); HEMOGLOBIN 8.9 GM/dL (10.7-15.3); LYMPH % 15.5 % (8-40); MCH 31.7 pg (25.7-33.7); MCHC 33.4 g/dl (32.0-36.0); MEAN CELL VOLUME 94.8 fl (80-96); MEAN PLT VOLUME 8.1 fl (7.5-11.1); MONO % 4.7 % (3.8-10.2); PLATELET COUNT 418 K/MM3 (134-434); RBC 2.81 M/mm3 (3.60-5.2); RDW 13.5 % (11.6-15.6); WHITE BLOOD COUNT 9.8 K/mm3 (4.0-10.0)
[2017-11-13 08:18] LABS: ALBUMIN 2.8 g/dl (3.4-5.0); ANION GAP 11 (8-16); BILIRUBIN,TOTAL 0.3 mg/dL (0.2-1.0); BLOOD UREA NITROGEN 32 mg/dL (7-18); CHLORIDE 113 mmol/L (98-107); CO2 19 mmol/L (21-32); CREATININE 1.5 mg/dL (0.55-1.02); GLUCOSE,RANDOM 236 mg/dL (74-106); POTASSIUM 4.9 mmol/L (3.5-5.1); SGOT/AST 15 U/L (15-37); SGPT/ALT 14 U/L (12-78); SODIUM 143 mmol/L (136-145); TOT PROT 6.7 g/dl (6.4-8.2)
[2017-11-13 08:19] LABS: ALK PHOS 38 U/L (45-117)
--- NOTE | 2017-11-13 09:01 | PN ---
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, Physician History of Present Illness: patient stable no issues overnight post surgery - Current Medication List Current Medications: Active Medications Acetaminophen (Tylenol -) 650 mg PO Q6H PRN PRN Reason: PAIN OR FEVER Apixaban (Eliquis -) 5 mg PO BID [facility] Last Admin: 11/13/17 00:04 Dose: 5 mg Atenolol (Tenormin -) 25 mg PO DAILY [facility] Last Admin: 11/12/17 12:15 Dose: 25 mg Atorvastatin Calcium (Lipitor -) 80 mg PO HS [facility] Last Admin: 11/12/17 21:53 Dose: 80 mg Enalapril Maleate (Vasotec -) 2.5 mg PO DAILY [facility] Last Admin: 11/12/17 12:15 Dose: 2.5 mg Fenofibric Acid (Trilipix -) 135 mg PO DAILY [facility] Last Admin: 11/12/17 16:22 Dose: Not Given Ferrous Sulfate (Feosol -) 325 mg PO BID [facility] Last Admin: 11/12/17 21:53 Dose: 325 mg Sodium Chloride (Normal Saline -) 1,000 mls @ 42 mls/hr IV ASDIR [facility] Last Admin: 11/12/17 09:33 Dose: 250 mls Vancomycin HCl 1,000 mg/ (Dextrose) 250 mls @ 166.667 mls/hr IVPB Q12H [facility]; Protocol Piperacillin Sod/Tazobactam (Sod 2.25 gm/ Dextrose) 50 mls @ 100 mls/hr IVPB Q8H-IV [facility]; Protocol Last Admin: 11/13/17 02:11 Dose: 100 mls/hr Insulin Aspart (Novolog Vial Sliding Scale -) 1 vial SQ ACHS [facility]; Protocol Last Admin: 11/13/17 06:53 Dose: 5 units Insulin Detemir (Levemir Vial) 50 units SQ HS [facility] Insulin Detemir (Levemir Vial) 45 units SQ AM [facility] Last Admin: 11/13/17 06:53 Dose: 45 units Levothyroxine Sodium (Synthroid -) 50 mcg PO DAILY@0700 [facility] Last Admin: 11/13/17 06:49 Dose: 50 mcg Magnesium Hydroxide (Milk Of Magnesia -) 30 ml PO DAILY PRN PRN Reason: CONSTIPATION Morphine Sulfate (Morphine Sulfate) 2 mg IVPUSH Q4H PRN PRN Reason: PAIN LEVEL 6-10 - Objective Vital Signs: Vital Signs Temperature 99.0 F 11/13/17 06:19 Pulse Rate 63 11/13/17 06:19 Respiratory Rate 20 11/13/17 06:19 Blood Pressure 128/66 11/13/17 06:19 O2 Sat by Pulse Oximetry (%) 95 11/12/17 16:17 Constitutional: Yes: No Distress, Calm Cardiovascular: Yes: S1, S2 Respiratory: Yes: Regular, CTA Bilaterally Gastrointestinal: Yes: Normal Bowel Sounds, Soft Musculoskeletal: Yes: WNL Extremities: Yes: WNL Wound/Incision: Yes: Dressing Dry and Intact Neurological: Yes: Alert Psychiatric: Yes: Alert Labs: CBC, BMP 11/13/17 06:45 11/13/17 06:45 Assessment/Plan Problem List - Problems (1) Sepsis Code(s): A41.9 - SEPSIS, UNSPECIFIED ORGANISM (2) Abdominal wall abscess Code(s): L02.211 - CUTANEOUS ABSCESS OF ABDOMINAL WALL (3) Afib Code(s): I48.91 - UNSPECIFIED ATRIAL FIBRILLATION Qualifiers: Atrial fibrillation type: chronic Qualified Code(s): I48.2 - Chronic atrial fibrillation (4) Elevated troponin Code(s): R74.8 - ABNORMAL LEVELS OF OTHER SERUM ENZYMES (5) CKD (chronic kidney disease) stage 3, GFR 30-59 ml/min Code(s): N18.3 - CHRONIC KIDNEY DISEASE, STAGE 3 (MODERATE) (6) Dementia Code(s): F03.90 - UNSPECIFIED DEMENTIA WITHOUT BEHAVIORAL DISTURBANCE (7) HTN (hypertension) Code(s): I10 - ESSENTIAL (PRIMARY) HYPERTENSION (8) IDDM (insulin dependent diabetes mellitus) Code(s): E11.9 - TYPE 2 DIABETES MELLITUS WITHOUT COMPLICATIONS; Z79.4 - INTERMEDIATE (CURRENT) USE OF INSULIN patient has already vanco and zosyn plan await for cx results continue zosyn once we have cx results we will make final plan rest as per the team
--- NOTE | 2017-11-13 09:58 | EKG ---
Test Reason : Blood Pressure : / mmHG Vent. Rate : 060 BPM Atrial Rate : 060 BPM P-R Int : 162 ms QRS Dur : 092 ms QT Int : 472 ms P-R-T Axes : 022 019 166 degrees QTc Int : 472 ms NORMAL SINUS RHYTHM PROLONGED QT ABNORMAL ECG WHEN COMPARED WITH ECG OF 11-NOV-2017 17:39, NO SIGNIFICANT CHANGE WAS FOUND Confirmed by AFSHAN FERNANDES MD ([id number]) on 11/13/2017 9:57:22 AM Referred By: SHAD HERRERA DR Confirmed By:AFSHAN FERNANDES MD
[2017-11-13] MEDS ORDERED: PT OWN MED DRAWER 7, Y5N ONE ×2 (10:42→20:34)
[2017-11-13] MEDS: FERROUS SO4 325 MG TABLET (FP) PO SCH ×2 (10:48→21:06)
[2017-11-13] MEDS: ATENOLOL 25 MG TABLET (FP) PO SCH (10:48)
[2017-11-13] MEDS: ENALAPRIL MALEATE 2.5 MG TABLET (FP) PO SCH (10:48)
[2017-11-13] MEDS: FENOFIBRIC ACID 135 MG CAP PO SCH (10:49)
--- NOTE | 2017-11-13 11:23 | PN ---
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 (short form) - Note 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: Pt seen/ examined pod # 1 comfortable denies pain afebrile Vital Signs Temp 99.0 F 11/13/17 06:19 Pulse 63 11/13/17 06:19 Resp 20 11/13/17 06:19 BP 128/66 11/13/17 06:19 Pulse Ox 95 11/12/17 16:17 Intake & Output 11/12/17 11/12/17 11/13/17 11:59 23:59 11:59 Intake Total 550 300 754 Output Total 10 Balance 540 300 754 Weight 127 lb 9.6 oz Intake: IV 550 100 504 Normal Saline - 1,000 ml 504 @ 42 mls/hr IV ASDIR [facility] Rx#:[id number] IVPB 50 Oral 200 200 Output: Estimated Blood Loss 10 Other: Voiding Method Incontinent Incontinent # Unmeasured Voids Void 1 Bowel Movement Yes No # Bowel Movements 1 Height 5 ft 6 in Body Mass Index (BMI) 20.5 Weight Measurement Method [facility] Active Medications Acetaminophen (Tylenol -) 650 mg PO Q6H PRN PRN Reason: PAIN OR FEVER Apixaban (Eliquis -) 5 mg PO BID [facility] Last Admin: 11/13/17 10:48 Dose: 5 mg Atenolol (Tenormin -) 25 mg PO DAILY [facility] Last Admin: 11/13/17 10:48 Dose: 25 mg Atorvastatin Calcium (Lipitor -) 80 mg PO HS [facility] Last Admin: 11/12/17 21:53 Dose: 80 mg Enalapril Maleate (Vasotec -) 2.5 mg PO DAILY [facility] Last Admin: 11/13/17 10:48 Dose: 2.5 mg Fenofibric Acid (Trilipix -) 135 mg PO DAILY [facility] Last Admin: 11/13/17 10:49 Dose: 135 mg Ferrous Sulfate (Feosol -) 325 mg PO BID [facility] Last Admin: 11/13/17 10:48 Dose: 325 mg Sodium Chloride (Normal Saline -) 1,000 mls @ 42 mls/hr IV ASDIR [facility] Last Admin: 11/12/17 09:33 Dose: 250 mls Vancomycin HCl 1,000 mg/ (Dextrose) 250 mls @ 166.667 mls/hr IVPB Q12H [facility]; Protocol Piperacillin Sod/Tazobactam (Sod 2.25 gm/ Dextrose) 50 mls @ 100 mls/hr IVPB Q8H-IV [facility]; Protocol Last Admin: 11/13/17 10:47 Dose: 100 mls/hr Insulin Aspart (Novolog Vial Sliding Scale -) 1 vial SQ ACHS [facility]; Protocol Last Admin: 11/13/17 06:53 Dose: 5 units Insulin Detemir (Levemir Vial) 50 units SQ HS [facility] Insulin Detemir (Levemir Vial) 45 units SQ AM [facility] Last Admin: 11/13/17 06:53 Dose: 45 units Levothyroxine Sodium (Synthroid -) 50 mcg PO DAILY@0700 [facility] Last Admin: 11/13/17 06:49 Dose: 50 mcg Magnesium Hydroxide (Milk Of Magnesia -) 30 ml PO DAILY PRN PRN Reason: CONSTIPATION Morphine Sulfate (Morphine Sulfate) 2 mg IVPUSH Q4H PRN PRN Reason: PAIN LEVEL 6-10 CBC, BMP 11/13/17 06:45 11/13/17 06:45 Microbiology 11/12/17 05:55 Blood Culture - Preliminary Blood - Peripheral Venous NO GROWTH OBTAINED AFTER 24 HOURS, INCUBATION TO CONTINUE FOR 4 DAYS. 11/12/17 06:05 Blood Culture - Preliminary Blood - Peripheral Venous NO GROWTH OBTAINED AFTER 24 HOURS, INCUBATION TO CONTINUE FOR 4 DAYS. Physical Exam Constitutional: Yes: No Distress, Calm. Comfortable Eyes: Yes: Conjunctiva Clear Neck: Yes: Supple Cardiovascular: Yes: Regular Rate and Rhythm Respiratory: Yes: Diminished Gastrointestinal: Yes: Soft/ Edema: No Neurological: Yes: Alert Psychiatric: Yes: Alert Assessment/Plan pod #1 stable pain under control abx monitor labs hold [facility]- level high daily oob - chair will add lower dose of levemir for tonight will follow Problem List - Problems (1) Abdominal wall abscess Code(s): L02.211 - CUTANEOUS ABSCESS OF ABDOMINAL WALL (2) Acute kidney injury Code(s): N17.9 - ACUTE KIDNEY FAILURE, UNSPECIFIED (3) Afib Code(s): I48.91 - UNSPECIFIED ATRIAL FIBRILLATION Qualifiers: Atrial fibrillation type: chronic Qualified Code(s): I48.2 - Chronic atrial fibrillation (4) Elevated troponin Code(s): R74.8 - ABNORMAL LEVELS OF OTHER SERUM ENZYMES (5) HTN (hypertension) Code(s): I10 - ESSENTIAL (PRIMARY) HYPERTENSION (6) IDDM (insulin dependent diabetes mellitus) Code(s): E11.9 - TYPE 2 DIABETES MELLITUS WITHOUT COMPLICATIONS; Z79.4 - [facility] (CURRENT) USE OF INSULIN
[2017-11-13] MEDS ORDERED: INSULIN (NOVOLOG) ASPART 100 UNITS/ML 10ML VIAL ONE (11:45)
--- NOTE | 2017-11-13 12:01 | PN ---
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 (short form) - Note 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: Attending Surgeon POD#1 No c/o ? VSS AF wound-open and clean IMP: doing well PLAN: Will place VAC dressing tomorrow. Gonzalo Howell MD FACS
--- NOTE | 2017-11-13 12:17 | OP ---
DATE OF OPERATION: 11/12/2017 PREOPERATIVE DIAGNOSIS: Abdominal wall abscess and necrotic soft tissue. POSTOPERATIVE DIAGNOSIS: Abdominal wall abscess and necrotic soft tissue. PROCEDURE: Excisional debridement of abdominal wall skin, subcutaneous tissue, and superficial fascia. SURGEON: Gonzalo Howell MD RECEPTION AGENT: Ky Radford PA-C ANESTHESIA: General. OPERATIVE FINDINGS: There was an extensive soft tissue infection and abscess involving the skin, subcutaneous tissue, and superficial fascia of the left lower abdominal wall. The area in question was approximately 15 cm x 10 cm in greatest dimension, and the rest of the findings were unremarkable. DESCRIPTION OF PROCEDURE: The patient was placed on the operating room table in supine position, and after the induction of general anesthesia, the area over the skin infection and abscess were prepped with Betadine and draped in sterile fashion. A time-out was taken. Then using a scalpel, excisional sharp debridement was carried out of nonviable skin, subcutaneous fat, and superficial fascia down to the abdominal wall where no further nonviable tissue existed. The specimen was sent for pathological examination, and culture was taken of the wound prior to excision. Hemostasis was secured with electrocautery and the wound copiously irrigated with sterile saline. Hemostasis was again verified and then the wound was packed with 4-inch Kerlix gauze soaked in saline followed by dry sterile dressings and the patient was then aroused from general anesthesia and transferred to the post anesthesia care unit in stable condition awake and alert. ESTIMATED BLOOD LOSS: 10 mL. REPLACEMENTS: Crystalloid. DRAINS: None. SPECIMEN: Abdominal wall soft tissue to pathology. I, Gonzalo Howell, was physically present in the operating room from the time the patient was placed on the operating room table until she was transferred to the post anesthesia care unit in [employer]. MD SIENA Nevarez/[id number] MTDD
--- NOTE | 2017-11-13 15:29 | PATH ---
Surgical Pathology Report Patient Name: REYNALDO SMART Med. Rec. #: [id number] /Age/Gender: 1945 (Age: 72) / F Account: [id number] Location: [address] [place] [address]/[facility] Taken: 11/12/2017 Received: 11/12/2017 Reported: 11/13/2017 Physicians: Gonzalo Howell MD PHYSICIAN EMERGENCY DEPT Specimen(s) Received ABDOMINAL WALL WOUND Clinical History The Abdominal wall wound/abscess Final Diagnosis ABDOMINAL WALL, WOUND, EXCISION: SKIN AND UNDERLYING SOFT TISSUE WITH MARKED ACUTE AND CHRONIC NECROTIZING INFLAMMATION AND ABSCESS FORMATION. Electronically Signed Mariposa Lunsford M.D. Gross Description Received in formalin labeled "abdominal wall wound," is a 7.3 x 3.7 cm brown, elliptical, unoriented portion of skin excised to depth of 2.4 cm. The epidermal surface displays a 3.0 x 2.2 cm ulcerated, necrotic lesion. 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 /11/12/2017 [facility]
[2017-11-13] MEDS: ATORVASTATIN CA 80 MG TABLET (FP) PO SCH (21:06)
[2017-11-13] MEDS: SODIUM CHLORIDE 1,000 ML IV SCH (21:12)
[2017-11-13] MEDS ORDERED: INSULIN (LEVEMIR) 100 UNITS/ML UNITS SQ SCH ×2 (22:00)
[2017-11-14] MEDS ORDERED: PIPERACILLIN/TAZOBACTAM 2.25 GM VIAL IVPB ONE ×3 (00:28→17:33)
[2017-11-14] MEDS ORDERED: DEXTROSE 5%-WATER - 50 ML IVPB ONE ×3 (00:29→17:33)
[2017-11-14] MEDS: PIPERACILLIN/TAZOB 2.25 GM 2.25 GM in DEXTROSE 5%-WATER - 50 ML IVPB SCH ×3 (01:09→17:45)
[2017-11-14] MEDS: INSULIN (LEVEMIR) 100 UNITS/ML UNITS SQ SCH ×2 (06:19→21:34)
[2017-11-14] MEDS: INSULIN SLIDING SCALE (NOVOLOG) 1 VIAL SQ SCH ×4 (06:19→21:37)
[2017-11-14] MEDS: LEVOTHYROXINE NA 100 MCG TABLET (FP) PO SCH (06:19)
[2017-11-14 08:25] LABS: BASO % 0.7 % (0-2.0); EOS % 3.8 % (0-4.5); HEMATOCRIT 22.7 % (32.4-45.2); HEMOGLOBIN 7.7 GM/dL (10.7-15.3); LYMPH % 27.2 % (8-40); MCH 32.3 pg (25.7-33.7); MCHC 34.1 g/dl (32.0-36.0); MEAN CELL VOLUME 94.5 fl (80-96); MEAN PLT VOLUME 7.7 fl (7.5-11.1); MONO % 7.9 % (3.8-10.2); NEUT % 60.4 % (42.8-82.8); PLATELET COUNT 384 K/MM3 (134-434); RDW 13.4 % (11.6-15.6); WHITE BLOOD COUNT 8.5 K/mm3 (4.0-10.0)
[2017-11-14 09:02] LABS: ALBUMIN 2.5 g/dl (3.4-5.0); ANION GAP 10 (8-16); BLOOD UREA NITROGEN 22 mg/dL (7-18); CALCIUM 8.9 mg/dL (8.5-10.1); CHLORIDE 117 mmol/L (98-107); CO2 20 mmol/L (21-32); GLUCOSE,RANDOM 113 mg/dL (74-106); POTASSIUM 4.7 mmol/L (3.5-5.1); SODIUM 147 mmol/L (136-145)
[2017-11-14 09:05] LABS: ALK PHOS 34 U/L (45-117); BILIRUBIN,TOTAL 0.2 mg/dL (0.2-1.0); CREATININE 1.4 mg/dL (0.55-1.02); SGOT/AST 34 U/L (15-37); SGPT/ALT 15 U/L (12-78)
[2017-11-14] MEDS: SODIUM CHLORIDE 1,000 ML IV SCH (09:11)
[2017-11-14] MEDS ORDERED: PT OWN MED DRAWER 7, Y5N ONE ×2 (09:14→21:03)
[2017-11-14] MEDS: FENOFIBRIC ACID 135 MG CAP PO SCH (10:03)
[2017-11-14] MEDS: ATENOLOL 25 MG TABLET (FP) PO SCH (10:03)
[2017-11-14] MEDS: FERROUS SO4 325 MG TABLET (FP) PO SCH ×2 (10:03→21:23)
[2017-11-14] MEDS: ENALAPRIL MALEATE 2.5 MG TABLET (FP) PO SCH (10:03)
[2017-11-14] MEDS: APIXABAN 5 MG TABLET PO SCH ×2 (10:03→21:23)
--- NOTE | 2017-11-14 10:41 | PN ---
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 (short form) - Note 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: Pt seen/ examined pod #2 comfortable denies pain sugar running low afebrile Vital Signs Temp 98.9 F 11/14/17 08:00 Pulse 60 11/14/17 08:00 Resp 18 11/14/17 08:00 BP 127/56 11/14/17 08:00 Pulse Ox 97 11/14/17 08:00 Intake & Output 11/13/17 11/13/17 11/14/17 11:59 23:59 11:59 Intake Total 754 920 533 Balance 754 920 533 Intake: IV 504 420 483 Normal Saline - 1,000 ml 504 420 483 @ 42 mls/hr IV ASDIR [facility] Rx#:[id number] IVPB 50 100 50 Oral 200 400 Other: Voiding Method Incontinent Incontinent # Unmeasured Voids Void 1 2 Bowel Movement No No No Active Medications Acetaminophen (Tylenol -) 650 mg PO Q6H PRN PRN Reason: PAIN OR FEVER Apixaban (Eliquis -) 5 mg PO BID [facility] Last Admin: 11/14/17 10:03 Dose: 5 mg Atenolol (Tenormin -) 25 mg PO DAILY [facility] Last Admin: 11/14/17 10:03 Dose: 25 mg Atorvastatin Calcium (Lipitor -) 80 mg PO HS [facility] Last Admin: 11/13/17 21:06 Dose: 80 mg Enalapril Maleate (Vasotec -) 2.5 mg PO DAILY [facility] Last Admin: 11/14/17 10:03 Dose: 2.5 mg Fenofibric Acid (Trilipix -) 135 mg PO DAILY [facility] Last Admin: 11/14/17 10:03 Dose: 135 mg Ferrous Sulfate (Feosol -) 325 mg PO BID [facility] Last Admin: 11/14/17 10:03 Dose: 325 mg Sodium Chloride (Normal Saline -) 1,000 mls @ 42 mls/hr IV ASDIR [facility] Last Admin: 11/14/17 09:11 Dose: Not Given Piperacillin Sod/Tazobactam (Sod 2.25 gm/ Dextrose) 50 mls @ 100 mls/hr IVPB Q8H-IV [facility]; Protocol Last Admin: 11/14/17 10:02 Dose: 100 mls/hr Insulin Aspart (Novolog Vial Sliding Scale -) 1 vial SQ ACHS [facility]; Protocol Last Admin: 11/14/17 06:19 Dose: Not Given Insulin Detemir (Levemir Vial) 10 units SQ HS [facility] Levothyroxine Sodium (Synthroid -) 50 mcg PO DAILY@0700 [facility] Last Admin: 11/14/17 06:19 Dose: 50 mcg Magnesium Hydroxide (Milk Of Magnesia -) 30 ml PO DAILY PRN PRN Reason: CONSTIPATION Morphine Sulfate (Morphine Sulfate) 2 mg IVPUSH Q4H PRN PRN Reason: PAIN LEVEL 6-10 CBC, BMP 11/14/17 07:00 11/14/17 07:00 Physical Exam Constitutional: Yes: No Distress, Calm. Comfortable Eyes: Yes: Conjunctiva Clear Neck: Yes: Supple/ no jvd Cardiovascular: Yes: Regular Rate and Rhythm Respiratory: Yes: Diminished Gastrointestinal: Yes: Soft/dressing + Edema: No Neurological: Yes: Alert Psychiatric: Yes: Alert Assessment/Plan pod #2 stable pain under control abx monitor labs vanco per lab f/u cultures daily oob - chair monitor bgm- lower dose of insulin will follow Problem List - Problems (1) Abdominal wall abscess Code(s): L02.211 - CUTANEOUS ABSCESS OF ABDOMINAL WALL (2) Acute kidney injury Code(s): N17.9 - ACUTE KIDNEY FAILURE, UNSPECIFIED (3) Afib Code(s): I48.91 - UNSPECIFIED ATRIAL FIBRILLATION Qualifiers: Atrial fibrillation type: chronic Qualified Code(s): I48.2 - Chronic atrial fibrillation (4) Elevated troponin Code(s): R74.8 - ABNORMAL LEVELS OF OTHER SERUM ENZYMES (5) HTN (hypertension) Code(s): I10 - ESSENTIAL (PRIMARY) HYPERTENSION (6) IDDM (insulin dependent diabetes mellitus) Code(s): E11.9 - TYPE 2 DIABETES MELLITUS WITHOUT COMPLICATIONS; Z79.4 - CUSTODIAL (CURRENT) USE OF INSULIN
[2017-11-14] MEDS ORDERED: INSULIN (NOVOLOG) ASPART 100 UNITS/ML 10ML VIAL ONE (11:35)
--- NOTE | 2017-11-14 12:44 | PN ---
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, Physician History of Present Illness: stable no new issues patient has no complaints - Current Medication List Current Medications: Active Medications Acetaminophen (Tylenol -) 650 mg PO Q6H PRN PRN Reason: PAIN OR FEVER Apixaban (Eliquis -) 5 mg PO BID [facility] Last Admin: 11/14/17 10:03 Dose: 5 mg Atenolol (Tenormin -) 25 mg PO DAILY [facility] Last Admin: 11/14/17 10:03 Dose: 25 mg Atorvastatin Calcium (Lipitor -) 80 mg PO HS [facility] Last Admin: 11/13/17 21:06 Dose: 80 mg Enalapril Maleate (Vasotec -) 2.5 mg PO DAILY [facility] Last Admin: 11/14/17 10:03 Dose: 2.5 mg Fenofibric Acid (Trilipix -) 135 mg PO DAILY [facility] Last Admin: 11/14/17 10:03 Dose: 135 mg Ferrous Sulfate (Feosol -) 325 mg PO BID [facility] Last Admin: 11/14/17 10:03 Dose: 325 mg Sodium Chloride (Normal Saline -) 1,000 mls @ 42 mls/hr IV ASDIR [facility] Last Admin: 11/14/17 09:11 Dose: Not Given Piperacillin Sod/Tazobactam (Sod 2.25 gm/ Dextrose) 50 mls @ 100 mls/hr IVPB Q8H-IV [facility]; Protocol Last Admin: 11/14/17 10:02 Dose: 100 mls/hr Insulin Aspart (Novolog Vial Sliding Scale -) 1 vial SQ [facility]; Protocol Last Admin: 11/14/17 12:14 Dose: 3 units Insulin Detemir (Levemir Vial) 10 units SQ [facility] Levothyroxine Sodium (Synthroid -) 50 mcg PO DAILY@0700 [facility] Last Admin: 11/14/17 06:19 Dose: 50 mcg Magnesium Hydroxide (Milk Of Magnesia -) 30 ml PO DAILY PRN PRN Reason: CONSTIPATION Morphine Sulfate (Morphine Sulfate) 2 mg IVPUSH Q4H PRN PRN Reason: PAIN LEVEL 6-10 - Objective Vital Signs: Vital Signs Temperature 98.9 F 11/14/17 08:00 Pulse Rate 60 11/14/17 08:00 Respiratory Rate 18 11/14/17 08:00 Blood Pressure 127/56 11/14/17 08:00 O2 Sat by Pulse Oximetry (%) 97 08/17/18 08:00 Constitutional: Yes: No Distress, Calm Cardiovascular: Yes: Regular Rate and Rhythm Respiratory: Yes: Regular, CTA Bilaterally Gastrointestinal: Yes: Soft Musculoskeletal: Yes: WNL Extremities: Yes: WNL Wound/Incision: Yes: Dressing Dry and Intact Neurological: Yes: Alert Psychiatric: Yes: Alert, Oriented Labs: CBC, BMP 11/14/17 07:00 11/14/17 07:00 Assessment/Plan Problem List - Problems (1) Sepsis Code(s): A41.9 - SEPSIS, UNSPECIFIED ORGANISM (2) Abdominal wall abscess Code(s): L02.211 - CUTANEOUS ABSCESS OF ABDOMINAL WALL (3) Afib Code(s): I48.91 - UNSPECIFIED ATRIAL FIBRILLATION Qualifiers: Atrial fibrillation type: chronic Qualified Code(s): I48.2 - Chronic atrial fibrillation (4) Elevated troponin Code(s): R74.8 - ABNORMAL LEVELS OF OTHER SERUM ENZYMES (5) CKD (chronic kidney disease) stage 3, GFR 30-59 ml/min Code(s): N18.3 - CHRONIC KIDNEY DISEASE, STAGE 3 (MODERATE) (6) Dementia Code(s): F03.90 - UNSPECIFIED DEMENTIA WITHOUT BEHAVIORAL DISTURBANCE (7) HTN (hypertension) Code(s): I10 - ESSENTIAL (PRIMARY) HYPERTENSION (8) IDDM (insulin dependent diabetes mellitus) Code(s): E11.9 - TYPE 2 DIABETES MELLITUS WITHOUT COMPLICATIONS; Z79.4 - USP (CURRENT) USE OF INSULIN patient has already rony and deep plan awaiting for cx results continue wound care will conitnue abx rest as per the team
--- NOTE | 2017-11-14 15:58 | PROC ---
Procedure Note Procedure: Abd wound cleansed/irrigated. Wound dimension: 9.5 cm x 4.5cm x 1 cm [employer] placed to base of wound. Black sponge placed just inside wound border (encourage wound contracture) Occlusive dressing applied. Unable to place on suction at this time as VAC unit coming from [employer]. Patient's RN present during entire procedure and said she will place on suction (100 mmHg). Patient tolerated procedure well. Dressing change -W- ordered
[2017-11-14] MEDS ORDERED: VANCOMYCIN 750 MG in DEXTROSE 5%-WATER - 250 ML IVPB ONE (17:00)
[2017-11-14] MEDS: ATORVASTATIN CA 80 MG TABLET (FP) PO SCH (21:24)
[2017-11-15] MEDS ORDERED: DEXTROSE 5%-WATER - 50 ML IVPB ONE ×4 (01:53→20:57)
[2017-11-15] MEDS ORDERED: PIPERACILLIN/TAZOBACTAM 2.25 GM VIAL IVPB ONE ×4 (01:53→20:56)
[2017-11-15] MEDS: PIPERACILLIN/TAZOB 2.25 GM 2.25 GM in DEXTROSE 5%-WATER - 50 ML IVPB SCH ×4 (02:07→21:48)
[2017-11-15] MEDS: LEVOTHYROXINE NA 100 MCG TABLET (FP) PO SCH (06:35)
[2017-11-15] MEDS: INSULIN SLIDING SCALE (NOVOLOG) 1 VIAL SQ SCH ×4 (06:40→21:57)
[2017-11-15] MEDS: SODIUM CHLORIDE 1,000 ML IV SCH (08:10)
[2017-11-15 08:20] LABS: EOS % 5.1 % (0-4.5); HEMATOCRIT 26.5 % (32.4-45.2); HEMOGLOBIN 8.8 GM/dL (10.7-15.3); LYMPH % 31.6 % (8-40); MCH 31.5 pg (25.7-33.7); MCHC 33.2 g/dl (32.0-36.0); MEAN CELL VOLUME 95.2 fl (80-96); MEAN PLT VOLUME 7.7 fl (7.5-11.1); MONO % 8.7 % (3.8-10.2); NEUT % 53.6 % (42.8-82.8); PLATELET COUNT 417 K/MM3 (134-434); RBC 2.78 M/mm3 (3.60-5.2); RDW 13.7 % (11.6-15.6); WHITE BLOOD COUNT 8.7 K/mm3 (4.0-10.0)
[2017-11-15] MEDS ORDERED: VANCOMYCIN 750 MG in DEXTROSE 5%-WATER - 150 ML IVPB SCH (08:30)
[2017-11-15 08:56] LABS: ALBUMIN 2.7 g/dl (3.4-5.0); ANION GAP 8 (8-16); BLOOD UREA NITROGEN 17 mg/dL (7-18); CALCIUM 9.1 mg/dL (8.5-10.1); CHLORIDE 114 mmol/L (98-107); CO2 22 mmol/L (21-32); GLUCOSE,RANDOM 139 mg/dL (74-106); POTASSIUM 4.9 mmol/L (3.5-5.1); SODIUM 144 mmol/L (136-145)
[2017-11-15 09:00] LABS: ALK PHOS 40 U/L (45-117); BILIRUBIN,TOTAL 0.2 mg/dL (0.2-1.0); CREATININE 1.3 mg/dL (0.55-1.02); SGOT/AST 30 U/L (15-37); SGPT/ALT 18 U/L (12-78); TOT PROT 6.5 g/dl (6.4-8.2)
[2017-11-15] MEDS: ATENOLOL 25 MG TABLET (FP) PO SCH (09:54)
[2017-11-15] MEDS: FERROUS SO4 325 MG TABLET (FP) PO SCH ×2 (09:54→21:47)
[2017-11-15] MEDS: ENALAPRIL MALEATE 2.5 MG TABLET (FP) PO SCH (09:54)
[2017-11-15] MEDS: APIXABAN 5 MG TABLET PO SCH ×2 (09:55→21:47)
[2017-11-15] MEDS: FENOFIBRIC ACID 135 MG CAP PO SCH (09:57)
--- NOTE | 2017-11-15 10:27 | PN ---
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, Physician Chief Complaint: Pt sitting up in bed; denies abdominal or any other pain. History of Present Illness: The patient is a 71 year old black female with a significant past medical history of HTN, DM, Afib on xarelto, who was sent from [facility] for evaluation of a lower abdominal abscess. Pt is a poor historian, does not know why she is here. Per Dr. Brooks, pt has lower abdominal wall abscess that Dr. Howell will be I&D-ing in the morning. Pt sent in for admission and IV antibiotics. - Current Medication List Current Medications: Active Medications Acetaminophen (Tylenol -) 650 mg PO Q6H PRN PRN Reason: PAIN OR FEVER Apixaban (Eliquis -) 5 mg PO BID [facility] Last Admin: 11/15/17 09:55 Dose: 5 mg Atenolol (Tenormin -) 25 mg PO DAILY [facility] Last Admin: 11/15/17 09:54 Dose: 25 mg Atorvastatin Calcium (Lipitor -) 80 mg PO [facility] Last Admin: 11/14/17 21:24 Dose: 80 mg Enalapril Maleate (Vasotec -) 2.5 mg PO DAILY [facility] Last Admin: 11/15/17 09:54 Dose: 2.5 mg Fenofibric Acid (Trilipix -) 135 mg PO DAILY [facility] Last Admin: 11/15/17 09:57 Dose: 135 mg Ferrous Sulfate (Feosol -) 325 mg PO BID [facility] Last Admin: 11/15/17 09:54 Dose: 325 mg Sodium Chloride (Normal Saline -) 1,000 mls @ 42 mls/hr IV ASDIR [facility] Last Admin: 11/15/17 08:10 Dose: 42 mls/hr Piperacillin Sod/Tazobactam (Sod 2.25 gm/ Dextrose) 50 mls @ 100 mls/hr IVPB Q8H-IV [facility]; Protocol Last Admin: 11/15/17 09:54 Dose: 100 mls/hr Insulin Aspart (Novolog Vial Sliding Scale -) 1 vial SQ [facility]; Protocol Last Admin: 11/15/17 06:40 Dose: Not Given Insulin Detemir (Levemir Vial) 10 units SQ [facility] Last Admin: 11/14/17 21:34 Dose: 10 units Levothyroxine Sodium (Synthroid -) 50 mcg PO DAILY@0700 [facility] Last Admin: 11/15/17 06:35 Dose: 50 mcg Magnesium Hydroxide (Milk Of Magnesia -) 30 ml PO DAILY PRN PRN Reason: CONSTIPATION Morphine Sulfate (Morphine Sulfate) 2 mg IVPUSH Q4H PRN PRN Reason: PAIN LEVEL 6-10 - Objective Vital Signs: Vital Signs Temperature 98.7 F 11/15/17 06:47 Pulse Rate 56 L 11/15/17 06:47 Respiratory Rate 18 11/15/17 06:47 Blood Pressure 116/46 11/15/17 06:47 O2 Sat by Pulse Oximetry (%) 97 11/14/17 21:00 Labs: CBC, BMP 11/15/17 07:55 11/15/17 07:55 Problem List - Problems (1) Abdominal wall abscess Assessment/Plan: s/p surgery today; pt is presently asymptomatic. Antibiotics; surgical f/u. Code(s): L02.211 - CUTANEOUS ABSCESS OF ABDOMINAL WALL (2) Sepsis Code(s): A41.9 - SEPSIS, UNSPECIFIED ORGANISM (3) Afib Assessment/Plan: on atenolol for HR control. On apixaban for anticoagulation. Code(s): I48.91 - UNSPECIFIED ATRIAL FIBRILLATION Qualifiers: Atrial fibrillation type: chronic Qualified Code(s): I48.2 - Chronic atrial fibrillation (4) CKD (chronic kidney disease) stage 3, GFR 30-59 ml/min Code(s): N18.3 - CHRONIC KIDNEY DISEASE, STAGE 3 (MODERATE) (5) Elevated troponin Code(s): R74.8 - ABNORMAL LEVELS OF OTHER SERUM ENZYMES (6) Chronic diastolic CHF (congestive heart failure) Code(s): I50.32 - CHRONIC DIASTOLIC (CONGESTIVE) HEART FAILURE (7) Hyperlipidemia Code(s): E78.5 - HYPERLIPIDEMIA, UNSPECIFIED (8) Diabetes Code(s): E11.9 - TYPE 2 DIABETES MELLITUS WITHOUT COMPLICATIONS
[2017-11-15] MEDS ORDERED: INSULIN (NOVOLOG) ASPART 100 UNITS/ML 10ML VIAL ONE ×2 (11:59→21:43)
--- NOTE | 2017-11-15 12:00 | PN ---
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 (short form) - Note 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: Pt seen/ examined pod #3 comfortable denies pain all f/u noted w/c following Vital Signs Temp 98.9 F 11/14/17 08:00 Pulse 60 11/14/17 08:00 Resp 18 11/14/17 08:00 BP 127/56 11/14/17 08:00 Pulse Ox 97 11/14/17 08:00 Intake & Output 11/13/17 11/13/17 11/14/17 11:59 23:59 11:59 Intake Total 754 920 533 Balance 754 920 533 Intake: IV 504 420 483 Normal Saline - 1,000 ml 504 420 483 @ 42 mls/hr IV ASDIR [facility] Rx#:[id number] IVPB 50 100 50 Oral 200 400 Other: Voiding Method Incontinent Incontinent # Unmeasured Voids Void 1 2 Bowel Movement No No No Active Medications Acetaminophen (Tylenol -) 650 mg PO Q6H PRN PRN Reason: PAIN OR FEVER Apixaban (Eliquis -) 5 mg PO BID [facility] Last Admin: 11/14/17 10:03 Dose: 5 mg Atenolol (Tenormin -) 25 mg PO DAILY [facility] Last Admin: 11/14/17 10:03 Dose: 25 mg Atorvastatin Calcium (Lipitor -) 80 mg PO HS [facility] Last Admin: 11/13/17 21:06 Dose: 80 mg Enalapril Maleate (Vasotec -) 2.5 mg PO DAILY [facility] Last Admin: 11/14/17 10:03 Dose: 2.5 mg Fenofibric Acid (Trilipix -) 135 mg PO DAILY [facility] Last Admin: 11/14/17 10:03 Dose: 135 mg Ferrous Sulfate (Feosol -) 325 mg PO BID [facility] Last Admin: 11/14/17 10:03 Dose: 325 mg Sodium Chloride (Normal Saline -) 1,000 mls @ 42 mls/hr IV ASDIR [facility] Last Admin: 11/14/17 09:11 Dose: Not Given Piperacillin Sod/Tazobactam (Sod 2.25 gm/ Dextrose) 50 mls @ 100 mls/hr IVPB Q8H-IV [facility]; Protocol Last Admin: 11/14/17 10:02 Dose: 100 mls/hr Insulin Aspart (Novolog Vial Sliding Scale -) 1 vial SQ [facility]; Protocol Last Admin: 11/14/17 06:19 Dose: Not Given Insulin Detemir (Levemir Vial) 10 units SQ HS [facility] Levothyroxine Sodium (Synthroid -) 50 mcg PO DAILY@0700 [facility] Last Admin: 11/14/17 06:19 Dose: 50 mcg Magnesium Hydroxide (Milk Of Magnesia -) 30 ml PO DAILY PRN PRN Reason: CONSTIPATION Morphine Sulfate (Morphine Sulfate) 2 mg IVPUSH Q4H PRN PRN Reason: PAIN LEVEL 6-10 CBC, BMP 11/14/17 07:00 11/14/17 07:00 Microbiology 11/12/17 15:45 Gram Stain - Final Abdomen Wound Culture - Preliminary Morganella Morganii Proteus Mirabilis Group D Strep Or Entero Coccus 11/12/17 05:55 Blood Culture - Preliminary Blood - Peripheral Venous NO GROWTH OBTAINED AFTER 72 HOURS, INCUBATION TO CONTINUE FOR 2 DAYS. 11/12/17 06:05 Blood Culture - Preliminary Blood - Peripheral Venous NO GROWTH OBTAINED AFTER 72 HOURS, INCUBATION TO CONTINUE FOR 2 DAYS. Physical Exam Constitutional: Yes: No Distress, Calm. Comfortable Eyes: Yes: Conjunctiva Clear Neck: Yes: Supple/ no jvd Cardiovascular: Yes: Regular Rate and Rhythm Respiratory: Yes: Diminished Gastrointestinal: Yes: Soft/dressing + Edema: No Neurological: Yes: Alert Psychiatric: Yes: Alert Assessment/Plan pod #3 stable pain under control abx monitor labs vanco per level f/u cultures daily oob - chair monitor bgm- vac to be placed will follow Problem List - Problems (1) Abdominal wall abscess Code(s): L02.211 - CUTANEOUS ABSCESS OF ABDOMINAL WALL (2) Acute kidney injury Code(s): N17.9 - ACUTE KIDNEY FAILURE, UNSPECIFIED (3) Afib Code(s): I48.91 - UNSPECIFIED ATRIAL FIBRILLATION Qualifiers: Atrial fibrillation type: chronic Qualified Code(s): I48.2 - Chronic atrial fibrillation (4) Elevated troponin Code(s): R74.8 - ABNORMAL LEVELS OF OTHER SERUM ENZYMES (5) HTN (hypertension) Code(s): I10 - ESSENTIAL (PRIMARY) HYPERTENSION (6) IDDM (insulin dependent diabetes mellitus) Code(s): E11.9 - TYPE 2 DIABETES MELLITUS WITHOUT COMPLICATIONS; 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
--- NOTE | 2017-11-15 18:04 | PN ---
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, Physician History of Present Illness: Infectious Disease f/u note: Pt is alert, without distress. States she feels well. Tolerating antibiotics. Tmax 99.7F. - Current Medication List Current Medications: Active Medications Acetaminophen (Tylenol -) 650 mg PO Q6H PRN PRN Reason: PAIN OR FEVER Apixaban (Eliquis -) 5 mg PO BID [facility] Last Admin: 11/15/17 09:55 Dose: 5 mg Atenolol (Tenormin -) 25 mg PO DAILY [facility] Last Admin: 11/15/17 09:54 Dose: 25 mg Atorvastatin Calcium (Lipitor -) 80 mg PO HS [facility] Last Admin: 11/14/17 21:24 Dose: 80 mg Enalapril Maleate (Vasotec -) 2.5 mg PO DAILY [facility] Last Admin: 11/15/17 09:54 Dose: 2.5 mg Fenofibric Acid (Trilipix -) 135 mg PO DAILY [facility] Last Admin: 11/15/17 09:57 Dose: 135 mg Ferrous Sulfate (Feosol -) 325 mg PO BID [facility] Last Admin: 11/15/17 09:54 Dose: 325 mg Sodium Chloride (Normal Saline -) 1,000 mls @ 42 mls/hr IV ASDIR [facility] Last Admin: 11/15/17 08:10 Dose: 42 mls/hr Piperacillin Sod/Tazobactam (Sod 2.25 gm/ Dextrose) 50 mls @ 100 mls/hr IVPB Q6H-IV [facility]; Protocol Insulin Aspart (Novolog Vial Sliding Scale -) 1 vial SQ ACHS [facility]; Protocol Last Admin: 11/15/17 17:18 Dose: 7 units Insulin Detemir (Levemir Vial) 10 units SQ [facility] Last Admin: 11/14/17 21:34 Dose: 10 units Levothyroxine Sodium (Synthroid -) 50 mcg PO DAILY@0700 [facility] Last Admin: 11/15/17 06:35 Dose: 50 mcg Magnesium Hydroxide (Milk Of Magnesia -) 30 ml PO DAILY PRN PRN Reason: CONSTIPATION - Objective Vital Signs: Vital Signs Temperature 97.4 F L 11/15/17 14:32 Pulse Rate 69 11/15/17 14:32 Respiratory Rate 18 11/15/17 09:30 Blood Pressure 130/50 11/15/17 14:32 O2 Sat by Pulse Oximetry (%) 97 11/14/17 21:00 Constitutional: Yes: No Distress, Calm Cardiovascular: Yes: Regular Rate and Rhythm Respiratory: Yes: Regular Gastrointestinal: Yes: Normal Bowel Sounds, Soft, Tenderness (mild) Extremities: Yes: WNL Wound/Incision: Yes: Other (lower abdomen +wound vac) Labs: CBC, BMP 11/15/17 07:55 11/15/17 07:55 Microbiology 11/12/17 15:45 Abdomen Gram Stain - Final 11/12/17 15:45 Abdomen Wound Culture - Preliminary Morganella Morganii Proteus Mirabilis Group D Strep Or Entero Coccus Lactose Fermenting Neg Bacilli 11/12/17 05:55 Blood - Peripheral Venous Blood Culture - Preliminary NO GROWTH OBTAINED AFTER 72 HOURS, INCUBATION TO CONTINUE FOR 2 DAYS. 11/12/17 06:05 Blood - Peripheral Venous Blood Culture - Preliminary NO GROWTH OBTAINED AFTER 72 HOURS, INCUBATION TO CONTINUE FOR 2 DAYS. Problem List - Problems (1) Abdominal wall abscess Code(s): L02.211 - CUTANEOUS ABSCESS OF ABDOMINAL WALL (2) Chronic diastolic CHF (congestive heart failure) Code(s): I50.32 - CHRONIC DIASTOLIC (CONGESTIVE) HEART FAILURE (3) Hyperlipidemia Code(s): E78.5 - HYPERLIPIDEMIA, UNSPECIFIED (4) Sepsis Code(s): A41.9 - SEPSIS, UNSPECIFIED ORGANISM (5) Afib Code(s): I48.91 - UNSPECIFIED ATRIAL FIBRILLATION Qualifiers: Atrial fibrillation type: chronic Qualified Code(s): I48.2 - Chronic atrial fibrillation (6) CKD (chronic kidney disease) stage 3, GFR 30-59 ml/min Code(s): N18.3 - CHRONIC KIDNEY DISEASE, STAGE 3 (MODERATE) (7) IDDM (insulin dependent diabetes mellitus) Code(s): E11.9 - TYPE 2 DIABETES MELLITUS WITHOUT COMPLICATIONS; Z79.4 - RESIDENTIAL (CURRENT) USE OF INSULIN Assessment/Plan Abdominal Wall abscess s/p debridement IDDM CKD Sepsis -- wound vac in place -- continue Zosyn, dose adjusted -- f/u final wound culture susceptibilities -- monitor vitals -- glycemic control
[2017-11-15] MEDS ORDERED: PT OWN MED DRAWER 7, Y5N ONE (21:44)
[2017-11-15] MEDS: ATORVASTATIN CA 80 MG TABLET (FP) PO SCH (21:47)
[2017-11-15] MEDS: INSULIN (LEVEMIR) 100 UNITS/ML UNITS SQ SCH (21:56)
[2017-11-16] MEDS ORDERED: PIPERACILLIN/TAZOBACTAM 2.25 GM VIAL IVPB ONE ×4 (01:44→21:00)
[2017-11-16] MEDS ORDERED: DEXTROSE 5%-WATER - 50 ML IVPB ONE ×3 (01:45→21:00)
[2017-11-16] MEDS: PIPERACILLIN/TAZOB 2.25 GM 2.25 GM in DEXTROSE 5%-WATER - 50 ML IVPB SCH ×4 (02:05→21:39)
[2017-11-16] MEDS: LEVOTHYROXINE NA 100 MCG TABLET (FP) PO SCH (06:21)
[2017-11-16] MEDS: INSULIN SLIDING SCALE (NOVOLOG) 1 VIAL SQ SCH ×4 (06:28→21:35)
[2017-11-16 08:44] LABS: BASO % 0.6 % (0-2.0); EOS % 3.6 % (0-4.5); HEMATOCRIT 26.6 % (32.4-45.2); LYMPH % 21.2 % (8-40); MCH 31.8 pg (25.7-33.7); MCHC 33.8 g/dl (32.0-36.0); MEAN CELL VOLUME 94.2 fl (80-96); MEAN PLT VOLUME 7.8 fl (7.5-11.1); MONO % 7.8 % (3.8-10.2); NEUT % 66.8 % (42.8-82.8); PLATELET COUNT 472 K/MM3 (134-434); RBC 2.82 M/mm3 (3.60-5.2); RDW 13.8 % (11.6-15.6); WHITE BLOOD COUNT 9.6 K/mm3 (4.0-10.0)
[2017-11-16] MEDS ORDERED: PT OWN MED DRAWER 7, Y5N ONE (09:27)
[2017-11-16 09:33] LABS: CHLORIDE 114 mmol/L (98-107); POTASSIUM 4.4 mmol/L (3.5-5.1); SODIUM 144 mmol/L (136-145)
[2017-11-16] MEDS: FERROUS SO4 325 MG TABLET (FP) PO SCH ×2 (09:44→21:26)
[2017-11-16] MEDS: FENOFIBRIC ACID 135 MG CAP PO SCH (09:44)
[2017-11-16] MEDS: APIXABAN 5 MG TABLET PO SCH ×2 (09:44→21:26)
[2017-11-16] MEDS: ATENOLOL 25 MG TABLET (FP) PO SCH (09:44)
[2017-11-16] MEDS: ENALAPRIL MALEATE 2.5 MG TABLET (FP) PO SCH (09:44)
[2017-11-16 10:20] LABS: ALBUMIN 2.6 g/dl (3.4-5.0); ALK PHOS 39 U/L (45-117); ANION GAP 9 (8-16); BILIRUBIN,TOTAL 0.2 mg/dL (0.2-1.0); BLOOD UREA NITROGEN 15 mg/dL (7-18); CALCIUM 8.8 mg/dL (8.5-10.1); CO2 21 mmol/L (21-32); CREATININE 1.3 mg/dL (0.55-1.02); GLUCOSE,RANDOM 131 mg/dL (74-106); SGOT/AST 26 U/L (15-37); SGPT/ALT 17 U/L (12-78); TOT PROT 6.5 g/dl (6.4-8.2)
[2017-11-16] MEDS ORDERED: INSULIN (LEVEMIR) 100 UNITS/ML UNITS SQ SCH (11:37)
--- NOTE | 2017-11-16 11:38 | PN ---
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 (short form) - Note 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: awake and comfortable No complaints Vital Signs Temp 98.9 F 11/16/17 02:00 Pulse 55 L 11/16/17 02:00 Resp 20 11/16/17 02:00 BP 144/60 11/16/17 02:00 Pulse Ox 97 11/15/17 21:00 Intake & Output 11/15/17 11/15/17 11/16/17 11:59 23:59 11:59 Intake Total 754 1129 554 Balance 754 1129 554 Intake: IV 504 504 504 Normal Saline - 1,000 ml 504 504 504 @ 42 mls/hr IV ASDIR [facility] Rx#:[id number] IVPB 50 150 50 Oral 200 475 Other: Voiding Method Incontinent Incontinent # Unmeasured Voids Void 1 3 Bowel Movement Yes No No # Bowel Movements 1 Active Medications Acetaminophen (Tylenol -) 650 mg PO Q6H PRN PRN Reason: PAIN OR FEVER Apixaban (Eliquis -) 5 mg PO BID [facility] Last Admin: 11/16/17 09:44 Dose: 5 mg Atenolol (Tenormin -) 25 mg PO DAILY [facility] Last Admin: 11/16/17 09:44 Dose: 25 mg Atorvastatin Calcium (Lipitor -) 80 mg PO HS [facility] Last Admin: 11/15/17 21:47 Dose: 80 mg Enalapril Maleate (Vasotec -) 2.5 mg PO DAILY [facility] Last Admin: 11/16/17 09:44 Dose: 2.5 mg Fenofibric Acid (Trilipix -) 135 mg PO DAILY [facility] Last Admin: 11/16/17 09:44 Dose: 135 mg Ferrous Sulfate (Feosol -) 325 mg PO BID [facility] Last Admin: 11/16/17 09:44 Dose: 325 mg Piperacillin Sod/Tazobactam (Sod 2.25 gm/ Dextrose) 50 mls @ 100 mls/hr IVPB Q6H-IV [facility]; Protocol Last Admin: 11/16/17 09:43 Dose: 100 mls/hr Insulin Aspart (Novolog Vial Sliding Scale -) 1 vial SQ [facility]; Protocol Last Admin: 11/16/17 06:28 Dose: 3 units Insulin Detemir (Levemir Vial) 15 units SQ [facility] Levothyroxine Sodium (Synthroid -) 50 mcg PO DAILY@0700 [facility] Last Admin: 11/16/17 06:21 Dose: 50 mcg Magnesium Hydroxide (Milk Of Magnesia -) 30 ml PO DAILY PRN PRN Reason: CONSTIPATION CBC, BMP 11/16/17 08:28 11/16/17 08:28 Microbiology 11/12/17 05:55 Blood Culture - Preliminary Blood - Peripheral Venous NO GROWTH OBTAINED AFTER 96 HOURS, INCUBATION TO CONTINUE FOR 1 DAYS. 11/12/17 06:05 Blood Culture - Preliminary Blood - Peripheral Venous NO GROWTH OBTAINED AFTER 96 HOURS, INCUBATION TO CONTINUE FOR 1 DAYS. 11/12/17 15:45 Gram Stain - Final Abdomen Wound Culture - Preliminary Morganella Morganii Proteus Mirabilis Group D Strep Or Entero Coccus Lactose Fermenting Neg Bacilli BGm -- readings Noted--Borderline elevated physical exam No Distress, Calm. Comfortable Eyes: Yes: Conjunctiva Clear Neck: Yes: Supple/ no jvd Cardiovascular: Yes: Regular Rate and Rhythm Respiratory: Yes: Diminished Gastrointestinal: Yes: Soft/dressing + Edema: No Neurological: Yes: Alert Psychiatric: Yes: Alert Assessment/Plan pod #4 stable pain under control abx monitor labs vanco per level f/u cultures daily oob - chair monitor bgm- increase Levemir vac to be placed will follow Problem List - Problems (1) Abdominal wall abscess Code(s): L02.211 - CUTANEOUS ABSCESS OF ABDOMINAL WALL (2) Acute kidney injury Code(s): N17.9 - ACUTE KIDNEY FAILURE, UNSPECIFIED (3) Afib Code(s): I48.91 - UNSPECIFIED ATRIAL FIBRILLATION Qualifiers: Atrial fibrillation type: chronic Qualified Code(s): I48.2 - Chronic atrial fibrillation (4) Elevated troponin Code(s): R74.8 - ABNORMAL LEVELS OF OTHER SERUM ENZYMES (5) HTN (hypertension) Code(s): I10 - ESSENTIAL (PRIMARY) HYPERTENSION (6) IDDM (insulin dependent diabetes mellitus) Code(s): E11.9 - TYPE 2 DIABETES MELLITUS WITHOUT COMPLICATIONS; Z79.4 - RESP THER (CURRENT) USE OF INSULIN
--- NOTE | 2017-11-16 13:04 | PN ---
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, Physician History of Present Illness: Pt doing well. Afebrile, without specific complaints. - Current Medication List Current Medications: Active Medications Acetaminophen (Tylenol -) 650 mg PO Q6H PRN PRN Reason: PAIN OR FEVER Apixaban (Eliquis -) 5 mg PO BID [facility] Last Admin: 11/16/17 09:44 Dose: 5 mg Atenolol (Tenormin -) 25 mg PO DAILY [facility] Last Admin: 11/16/17 09:44 Dose: 25 mg Atorvastatin Calcium (Lipitor -) 80 mg PO [facility] Last Admin: 11/15/17 21:47 Dose: 80 mg Enalapril Maleate (Vasotec -) 2.5 mg PO DAILY [facility] Last Admin: 11/16/17 09:44 Dose: 2.5 mg Fenofibric Acid (Trilipix -) 135 mg PO DAILY [facility] Last Admin: 11/16/17 09:44 Dose: 135 mg Ferrous Sulfate (Feosol -) 325 mg PO BID [facility] Last Admin: 11/16/17 09:44 Dose: 325 mg Piperacillin Sod/Tazobactam (Sod 2.25 gm/ Dextrose) 50 mls @ 100 mls/hr IVPB Q6H-IV [facility]; Protocol Last Admin: 11/16/17 09:43 Dose: 100 mls/hr Insulin Aspart (Novolog Vial Sliding Scale -) 1 vial SQ [facility]; Protocol Last Admin: 11/16/17 12:19 Dose: 7 units Insulin Detemir (Levemir Vial) 15 units SQ [facility] Levothyroxine Sodium (Synthroid -) 50 mcg PO DAILY@0700 [facility] Last Admin: 11/16/17 06:21 Dose: 50 mcg Magnesium Hydroxide (Milk Of Magnesia -) 30 ml PO DAILY PRN PRN Reason: CONSTIPATION - Objective Vital Signs: Vital Signs Temperature 98.2 F 11/16/17 10:00 Pulse Rate 88 11/16/17 10:00 Respiratory Rate 20 11/16/17 10:00 Blood Pressure 136/68 11/16/17 10:00 O2 Sat by Pulse Oximetry (%) 97 11/15/17 21:00 Constitutional: Yes: No Distress, Calm Cardiovascular: Yes: Regular Rate and Rhythm Respiratory: Yes: CTA Bilaterally Gastrointestinal: Yes: Normal Bowel Sounds, Soft Wound/Incision: Yes: Other (wound vac in place) Labs: CBC, BMP 11/16/17 08:28 11/16/17 08:28 Problem List - Problems (1) Abdominal wall abscess Code(s): L02.211 - CUTANEOUS ABSCESS OF ABDOMINAL WALL (2) Chronic diastolic CHF (congestive heart failure) Code(s): I50.32 - CHRONIC DIASTOLIC (CONGESTIVE) HEART FAILURE (3) Hyperlipidemia Code(s): E78.5 - HYPERLIPIDEMIA, UNSPECIFIED (4) Sepsis Code(s): A41.9 - SEPSIS, UNSPECIFIED ORGANISM (5) Afib Code(s): I48.91 - UNSPECIFIED ATRIAL FIBRILLATION Qualifiers: Atrial fibrillation type: chronic Qualified Code(s): I48.2 - Chronic atrial fibrillation (6) CKD (chronic kidney disease) stage 3, GFR 30-59 ml/min Code(s): N18.3 - CHRONIC KIDNEY DISEASE, STAGE 3 (MODERATE) (7) IDDM (insulin dependent diabetes mellitus) Code(s): E11.9 - TYPE 2 DIABETES MELLITUS WITHOUT COMPLICATIONS; 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
[2017-11-16] MEDS ORDERED: INSULIN (NOVOLOG) ASPART 100 UNITS/ML 10ML VIAL ONE (20:59)
[2017-11-16] MEDS: ATORVASTATIN CA 80 MG TABLET (FP) PO SCH (21:26)
[2017-11-17] MEDS ORDERED: DEXTROSE 5%-WATER - 50 ML IVPB ONE ×2 (02:02→08:27)
[2017-11-17] MEDS ORDERED: PIPERACILLIN/TAZOBACTAM 2.25 GM VIAL IVPB ONE ×2 (02:02→08:27)
[2017-11-17] MEDS: PIPERACILLIN/TAZOB 2.25 GM 2.25 GM in DEXTROSE 5%-WATER - 50 ML IVPB SCH ×2 (02:09→09:45)
[2017-11-17] MEDS: LEVOTHYROXINE NA 100 MCG TABLET (FP) PO SCH (06:11)
[2017-11-17] MEDS: INSULIN SLIDING SCALE (NOVOLOG) 1 VIAL SQ SCH ×4 (06:15→21:36)
[2017-11-17] MEDS ORDERED: PT OWN MED DRAWER 7, Y5N ONE ×4 (09:42→21:55)
[2017-11-17] MEDS: ENALAPRIL MALEATE 2.5 MG TABLET (FP) PO SCH (09:43)
[2017-11-17] MEDS: FERROUS SO4 325 MG TABLET (FP) PO SCH ×2 (09:43→21:36)
[2017-11-17] MEDS: ATENOLOL 25 MG TABLET (FP) PO SCH (09:43)
[2017-11-17] MEDS: FENOFIBRIC ACID 135 MG CAP PO SCH (09:44)
[2017-11-17] MEDS: APIXABAN 5 MG TABLET PO SCH ×2 (09:45→21:36)
--- NOTE | 2017-11-17 10:58 | PN ---
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 (short form) - Note 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: Comfortable no new issues afebrile denies pain Vital Signs Temp 97.5 F L 11/17/17 10:02 Pulse 57 L 11/17/17 10:02 Resp 20 11/17/17 10:02 BP 119/59 11/17/17 10:02 Pulse Ox 97 11/15/17 21:00 Intake & Output 11/16/17 11/16/17 11/17/17 11:59 23:59 11:59 Intake Total 554 50 50 Balance 554 50 50 Intake: IV 504 Normal Saline - 1,000 ml 504 @ 42 mls/hr IV ASDIR [facility] Rx#:[id number] IVPB 50 50 50 Other: Voiding Method Incontinent Incontinent # Unmeasured Voids Void 2 Bowel Movement No No Yes Active Medications Acetaminophen (Tylenol -) 650 mg PO Q6H PRN PRN Reason: PAIN OR FEVER Apixaban (Eliquis -) [address] [facility] Last Admin: 11/17/17 09:45 Dose: 5 mg Atenolol (Tenormin -) [address] [facility] Last Admin: 11/17/17 09:43 Dose: 25 mg Atorvastatin Calcium (Lipitor -) [address] [facility] Last Admin: 11/16/17 21:26 Dose: 80 mg Enalapril Maleate (Vasotec -) 2.[address] [facility] Last Admin: 11/17/17 09:43 Dose: 2.5 mg Fenofibric Acid (Trilipix -) [address] [facility] Last Admin: 11/17/17 09:44 Dose: 135 mg Ferrous Sulfate (Feosol -) [address] [facility] Last Admin: 11/17/17 09:43 Dose: 325 mg Piperacillin Sod/Tazobactam (Sod 2.25 gm/ Dextrose) 50 mls @ 100 mls/hr IVPB Q6H-IV [facility]; Protocol Last Admin: 11/17/17 09:45 Dose: 100 mls/hr Insulin Aspart (Novolog Vial Sliding Scale -) [address] [facility]; Protocol Last Admin: 11/17/17 06:15 Dose: 5 units Insulin Detemir (Levemir Vial) [address] [facility] Levothyroxine Sodium (Synthroid -) 50 mcg PO DAILY@0700 [facility] Last Admin: 11/17/17 06:11 Dose: 50 mcg Magnesium Hydroxide (Milk Of Magnesia -) 30 ml PO DAILY PRN PRN Reason: CONSTIPATION CBC, BMP 11/16/17 08:28 11/16/17 08:28 Microbiology 11/12/17 05:55 Blood Culture - Final Blood - Peripheral Venous NO GROWTH AFTER 5 DAYS INCUBATION 11/12/17 06:05 Blood Culture - Final Blood - Peripheral Venous NO GROWTH AFTER 5 DAYS INCUBATION 11/12/17 15:45 Gram Stain - Final Abdomen Wound Culture - Preliminary Morganella Morganii Proteus Mirabilis Group D Strep Or Entero Coccus Lactose Fermenting Neg Bacilli Physical exam No Distress, Calm. Comfortable Eyes: Yes: Conjunctiva Clear Neck: Yes: Supple/ no jvd Cardiovascular: Yes: Regular Rate and Rhythm Respiratory: Yes: Diminished Gastrointestinal: Yes: Soft/dressing + Edema: No Neurological: Yes: Alert Psychiatric: Yes: Alert Assessment/Plan pod #5 stable pain under control abx esbl precautions daily oob - chair monitor bgm- increase Levemir vac to be placed will follow Problem List - Problems (1) Abdominal wall abscess Code(s): L02.211 - CUTANEOUS ABSCESS OF ABDOMINAL WALL (2) Acute kidney injury Code(s): N17.9 - ACUTE KIDNEY FAILURE, UNSPECIFIED (3) Afib Code(s): I48.91 - UNSPECIFIED ATRIAL FIBRILLATION Qualifiers: Atrial fibrillation type: chronic Qualified Code(s): I48.2 - Chronic atrial fibrillation (4) Elevated troponin Code(s): R74.8 - ABNORMAL LEVELS OF OTHER SERUM ENZYMES (5) HTN (hypertension) Code(s): I10 - ESSENTIAL (PRIMARY) HYPERTENSION (6) IDDM (insulin dependent diabetes mellitus) Code(s): E11.9 - TYPE 2 DIABETES MELLITUS WITHOUT COMPLICATIONS; Z79.4 - EM[employer]OYEE [employer]EF[employer] (CURRENT) USE OF INSULIN
[2017-11-17] MEDS ORDERED: INSULIN (NOVOLOG) ASPART 100 UNITS/ML 10ML VIAL ONE ×3 (11:48→21:22)
--- NOTE | 2017-11-17 13:08 | PN ---
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, Physician History of Present Illness: patient looking much better no complaints - Current Medication List Current Medications: Active Medications Acetaminophen (Tylenol -) 650 mg PO Q6H PRN PRN Reason: PAIN OR FEVER Apixaban (Eliquis -) 5 mg PO BID [facility] Last Admin: 11/17/17 09:45 Dose: 5 mg Atenolol (Tenormin -) 25 mg PO DAILY [facility] Last Admin: 11/17/17 09:43 Dose: 25 mg Atorvastatin Calcium (Lipitor -) 80 mg PO HS [facility] Last Admin: 11/16/17 21:26 Dose: 80 mg Enalapril Maleate (Vasotec -) 2.5 mg PO DAILY [facility] Last Admin: 11/17/17 09:43 Dose: 2.5 mg Fenofibric Acid (Trilipix -) 135 mg PO DAILY [facility] Last Admin: 11/17/17 09:44 Dose: 135 mg Ferrous Sulfate (Feosol -) 325 mg PO BID [facility] Last Admin: 11/17/17 09:43 Dose: 325 mg Ertapenem 1 gm/ Sodium (Chloride) 50 mls @ 50 mls/hr IVPB DAILY [facility]; Protocol Insulin Aspart (Novolog Vial Sliding Scale -) 1 vial SQ ACHS [facility]; Protocol Last Admin: 11/17/17 11:52 Dose: 7 units Insulin Detemir (Levemir Vial) 15 units SQ BID@0700,2200 [facility] Levothyroxine Sodium (Synthroid -) 50 mcg PO DAILY@0700 [facility] Last Admin: 11/17/17 06:11 Dose: 50 mcg Magnesium Hydroxide (Milk Of Magnesia -) 30 ml PO DAILY PRN PRN Reason: CONSTIPATION - Objective Vital Signs: Vital Signs Temperature 97.5 F L 11/17/17 10:02 Pulse Rate 57 L 11/17/17 10:02 Respiratory Rate 20 11/17/17 10:02 Blood Pressure 119/59 11/17/17 10:02 O2 Sat by Pulse Oximetry (%) 97 11/15/17 21:00 Constitutional: Yes: No Distress, Calm Cardiovascular: Yes: Regular Rate and Rhythm Respiratory: Yes: Regular, CTA Bilaterally Gastrointestinal: Yes: Normal Bowel Sounds, Soft Musculoskeletal: Yes: WNL Extremities: Yes: WNL Wound/Incision: Yes: Dressing Dry and Intact Neurological: Yes: Alert, Oriented Psychiatric: Yes: Alert Labs: CBC, BMP 11/16/17 08:28 11/16/17 08:28 Assessment/Plan Problem List - Problems (1) Sepsis Code(s): A41.9 - SEPSIS, UNSPECIFIED ORGANISM (2) Abdominal wall abscess Code(s): L02.211 - CUTANEOUS ABSCESS OF ABDOMINAL WALL (3) Afib Code(s): I48.91 - UNSPECIFIED ATRIAL FIBRILLATION Qualifiers: Atrial fibrillation type: chronic Qualified Code(s): I48.2 - Chronic atrial fibrillation (4) Elevated troponin Code(s): R74.8 - ABNORMAL LEVELS OF OTHER SERUM ENZYMES (5) CKD (chronic kidney disease) stage 3, GFR 30-59 ml/min Code(s): N18.3 - CHRONIC KIDNEY DISEASE, STAGE 3 (MODERATE) (6) Dementia Code(s): F03.90 - UNSPECIFIED DEMENTIA WITHOUT BEHAVIORAL DISTURBANCE (7) HTN (hypertension) Code(s): I10 - ESSENTIAL (PRIMARY) HYPERTENSION (8) IDDM (insulin dependent diabetes mellitus) Code(s): E11.9 - TYPE 2 DIABETES MELLITUS WITHOUT COMPLICATIONS; Z79.4 - [facility] (CURRENT) USE OF INSULIN patient has already vanco and zosyn plan all cx reports noted still awaiting one organism stopped zosyn changed abx to ertapenam wound care rest as per the team
--- NOTE | 2017-11-17 16:19 | PN ---
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 (short form) - Note 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: Attending Surgeon POD#5 No c/o ? VAC day #3 VSS AF wound clean and granulating 9.0 x 4.0 x 0.5 cm. IMP: improving PLAN: Continue present tx. Gonzalo Howell MD FACS
[2017-11-17] MEDS: ERTAPENEM SODIUM 1 GM in SODIUM CHLORIDE 50 ML IVPB SCH (16:35)
--- NOTE | 2017-11-17 18:57 | PN ---
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, Physician History of Present Illness: The patient is a 71 year old black female with a significant past medical history of HTN, DM, Afib on xarelto, who was sent from [facility] for evaluation of a lower abdominal abscess. Pt is a poor historian, does not know why she is here. Per Dr. Brooks, pt has lower abdominal wall abscess that Dr. Howell will be I&D-ing in the morning. Pt sent in for admission and IV antibiotics. - Current Medication List Current Medications: Active Medications Acetaminophen (Tylenol -) 650 mg PO Q6H PRN PRN Reason: PAIN OR FEVER Apixaban (Eliquis -) 5 mg PO BID [facility] Last Admin: 11/17/17 09:45 Dose: 5 mg Atenolol (Tenormin -) 25 mg PO DAILY [facility] Last Admin: 11/17/17 09:43 Dose: 25 mg Atorvastatin Calcium (Lipitor -) 80 mg PO HS [facility] Last Admin: 11/16/17 21:26 Dose: 80 mg Enalapril Maleate (Vasotec -) 2.5 mg PO DAILY [facility] Last Admin: 11/17/17 09:43 Dose: 2.5 mg Fenofibric Acid (Trilipix -) 135 mg PO DAILY [facility] Last Admin: 11/17/17 09:44 Dose: 135 mg Ferrous Sulfate (Feosol -) 325 mg PO BID [facility] Last Admin: 11/17/17 09:43 Dose: 325 mg Ertapenem 1 gm/ Sodium (Chloride) 50 mls @ 100 mls/hr IVPB DAILY [facility]; Protocol Last Admin: 11/17/17 16:35 Dose: 100 mls/hr Insulin Aspart (Novolog Vial Sliding Scale -) 1 vial SQ ACHS [facility]; Protocol Last Admin: 11/17/17 17:15 Dose: 7 units Insulin Detemir (Levemir Vial) 15 units SQ BID@0700,2200 [facility] Levothyroxine Sodium (Synthroid -) 50 mcg PO DAILY@0700 [facility] Last Admin: 11/17/17 06:11 Dose: 50 mcg Magnesium Hydroxide (Milk Of Magnesia -) 30 ml PO DAILY PRN PRN Reason: CONSTIPATION - Objective Vital Signs: Vital Signs Temperature 97.5 F L 11/17/17 10:02 Pulse Rate 57 L 11/17/17 10:02 Respiratory Rate 20 11/17/17 10:02 Blood Pressure 119/59 11/17/17 10:02 O2 Sat by Pulse Oximetry (%) 97 11/15/17 21:00 Labs: CBC, BMP 11/16/17 08:28 11/16/17 08:28 Problem List - Problems (1) Abdominal wall abscess Code(s): L02.211 - CUTANEOUS ABSCESS OF ABDOMINAL WALL (2) Sepsis Code(s): A41.9 - SEPSIS, UNSPECIFIED ORGANISM (3) Afib Code(s): I48.91 - UNSPECIFIED ATRIAL FIBRILLATION Qualifiers: Atrial fibrillation type: chronic Qualified Code(s): I48.2 - Chronic atrial fibrillation (4) CKD (chronic kidney disease) stage 3, GFR 30-59 ml/min Code(s): N18.3 - CHRONIC KIDNEY DISEASE, STAGE 3 (MODERATE) (5) Elevated troponin Code(s): R74.8 - ABNORMAL LEVELS OF OTHER SERUM ENZYMES (6) Chronic diastolic CHF (congestive heart failure) Code(s): I50.32 - CHRONIC DIASTOLIC (CONGESTIVE) HEART FAILURE (7) Hyperlipidemia Code(s): E78.5 - HYPERLIPIDEMIA, UNSPECIFIED (8) Diabetes Code(s): E11.9 - TYPE 2 DIABETES MELLITUS WITHOUT COMPLICATIONS
[2017-11-17] MEDS: INSULIN (LEVEMIR) 100 UNITS/ML UNITS SQ SCH (21:36)
[2017-11-17] MEDS: ATORVASTATIN CA 80 MG TABLET (FP) PO SCH (21:36)
[2017-11-18] MEDS: INSULIN (LEVEMIR) 100 UNITS/ML UNITS SQ SCH ×2 (06:31→21:36)
[2017-11-18] MEDS: LEVOTHYROXINE NA 100 MCG TABLET (FP) PO SCH (06:31)
[2017-11-18] MEDS: INSULIN SLIDING SCALE (NOVOLOG) 1 VIAL SQ SCH ×4 (06:31→21:43)
--- NOTE | 2017-11-18 07:58 | PN ---
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 (short form) - Note 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: 72yo F s/p excision debridement abdominal wall abscess. Pt with Vac dressing in place changed yesterday. Last Vital Signs Temp Pulse Resp BP Pulse Ox 98.6 F 59 L 20 121/45 96 11/18/17 05:30 11/18/17 05:30 11/17/17 21:00 11/18/17 05:30 11/17/17 21:00 PE: Gen: awake and alert Resp: breathing comfortably Abd: soft, nondistended, vac dressing in place over inferior midline abd, no erythema. Problem List - Problems (1) Abdominal wall abscess Assessment/Plan: Plan -continue vac dressing will, change tomorrow MWF -abx per ID/medicine Code(s): L02.211 - CUTANEOUS ABSCESS OF ABDOMINAL WALL
--- NOTE | 2017-11-18 08:51 | PN ---
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 (short form) - Note 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: Pt seen/ examined with LICENS[employer]ICAL SOCIAL WORKER Iraida Case discussed Documentation reviewed pt comfortable Vac placed Vital Signs Temp 98.6 F 11/18/17 05:30 Pulse 59 L 11/18/17 05:30 Resp 20 11/17/17 21:00 BP 121/45 11/18/17 05:30 Pulse Ox 96 11/17/17 21:00 Intake & Output 11/17/17 11/17/17 11/18/17 11:59 23:59 11:59 Intake Total 100 650 Balance 100 650 Intake: IVPB 100 50 Oral 600 Other: Voiding Method Incontinent Incontinent # Unmeasured Voids Void 1 Bowel Movement Yes No No # Bowel Movements 1 Active Medications Acetaminophen (Tylenol -) 650 mg PO Q6H PRN PRN Reason: PAIN OR FEVER Apixaban (Eliquis -) 5 mg PO BID [facility] Last Admin: 11/17/17 21:36 Dose: 5 mg Atenolol (Tenormin -) 25 mg PO DAILY [facility] Last Admin: 11/17/17 09:43 Dose: 25 mg Atorvastatin Calcium (Lipitor -) 80 mg PO HS [facility] Last Admin: 11/17/17 21:36 Dose: 80 mg Enalapril Maleate (Vasotec -) 2.5 mg PO DAILY [facility] Last Admin: 11/17/17 09:43 Dose: 2.5 mg Fenofibric Acid (Trilipix -) 135 mg PO DAILY [facility] Last Admin: 11/17/17 09:44 Dose: 135 mg Ferrous Sulfate (Feosol -) 325 mg PO BID [facility] Last Admin: 11/17/17 21:36 Dose: 325 mg Ertapenem 1 gm/ Sodium (Chloride) 50 mls @ 100 mls/hr IVPB DAILY [facility]; Protocol Last Admin: 11/17/17 16:35 Dose: 100 mls/hr Insulin Aspart (Novolog Vial Sliding Scale -) 1 vial SQ ACHS [facility]; Protocol Last Admin: 11/18/17 06:31 Dose: Not Given Insulin Detemir (Levemir Vial) 15 units SQ BID@0700,2200 [facility] Last Admin: 11/18/17 06:31 Dose: 15 units Levothyroxine Sodium (Synthroid -) 50 mcg PO DAILY@0700 [facility] Last Admin: 11/18/17 06:31 Dose: 50 mcg Magnesium Hydroxide (Milk Of Magnesia -) 30 ml PO DAILY PRN PRN Reason: CONSTIPATION CBC, BMP 11/16/17 08:28 11/16/17 08:28 Microbiology 11/12/17 15:45 Gram Stain - Final Abdomen Wound Culture - Final Morganella Morganii Proteus Mirabilis Enterococcus Avium Escherichia Coli Esbl Ceo [employer] 11/12/17 05:55 Blood Culture - Final Blood - Peripheral Venous NO GROWTH AFTER 5 DAYS INCUBATION 11/12/17 06:05 Blood Culture - Final Blood - Peripheral Venous NO GROWTH AFTER 5 DAYS INCUBATION Physical exam No Distress, Calm. Comfortable Eyes: Yes: Conjunctiva Clear Neck: Yes: Supple/ no jvd Cardiovascular: Yes: Regular Rate and Rhythm Respiratory: Yes: Diminished Gastrointestinal: Yes: VAC dressing in place Edema: No Neurological: Yes: Alert Psychiatric: Yes: Alert Assessment/Plan abdominal wall abscess chronic diastolic HF AFIB DM CKD HTN Antibiotics vac dressing esbl precautions atenolol, vasotec, eliquis monitor BGM-- better daily oob - chair Problem List - Problems (1) Abdominal wall abscess Code(s): L02.211 - CUTANEOUS ABSCESS OF ABDOMINAL WALL (2) Acute kidney injury Code(s): N17.9 - ACUTE KIDNEY FAILURE, UNSPECIFIED (3) Afib Code(s): I48.91 - UNSPECIFIED ATRIAL FIBRILLATION Qualifiers: Atrial fibrillation type: chronic Qualified Code(s): I48.2 - Chronic atrial fibrillation (4) Elevated troponin Code(s): R74.8 - ABNORMAL LEVELS OF OTHER SERUM ENZYMES (5) HTN (hypertension) Code(s): I10 - ESSENTIAL (PRIMARY) HYPERTENSION (6) IDDM (insulin dependent diabetes mellitus) Code(s): E11.9 - TYPE 2 DIABETES MELLITUS WITHOUT COMPLICATIONS; Z79.4 - [employer] (CURRENT) USE OF INSULIN
[2017-11-18] MEDS ORDERED: PT OWN MED DRAWER 7, Y5N ONE ×2 (11:12→21:21)
[2017-11-18] MEDS: FERROUS SO4 325 MG TABLET (FP) PO SCH ×2 (11:17→21:35)
[2017-11-18] MEDS: ATENOLOL 25 MG TABLET (FP) PO SCH (11:17)
[2017-11-18] MEDS: ENALAPRIL MALEATE 2.5 MG TABLET (FP) PO SCH (11:17)
[2017-11-18] MEDS: ERTAPENEM SODIUM 1 GM in SODIUM CHLORIDE 50 ML IVPB SCH (11:17)
[2017-11-18] MEDS: APIXABAN 5 MG TABLET PO SCH ×2 (11:18→21:35)
[2017-11-18] MEDS: FENOFIBRIC ACID 135 MG CAP PO SCH (11:18)
[2017-11-18] MEDS ORDERED: INSULIN (NOVOLOG) ASPART 100 UNITS/ML 10ML VIAL ONE ×2 (11:35→21:21)
--- NOTE | 2017-11-18 12:54 | PN ---
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 (short form) - Note 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: patient seen this am along with Dr Brooks no complaints no c/o pain vac dressing in place Vital Signs Period Temp Pulse Resp BP Sys/Hall Pulse Ox Last 24 Hr 98.6 F 59 20 121/45 96 CBC,CMP WBC 9.6 K/mm3 (4.0-10.0) 11/16/17 08:28 RBC 2.82 M/mm3 (3.60-5.2) L 11/16/17 08:28 Hgb 9.0 GM/dL (10.7-15.3) L 11/16/17 08:28 Hct 26.6 % (32.4-45.2) L 11/16/17 08:28 MCV 94.2 fl (80-96) 11/16/17 08:28 MCH 31.8 pg (25.7-33.7) 11/16/17 08:28 MCHC 33.8 g/dl (32.0-36.0) 11/16/17 08:28 RDW 13.8 % (11.6-15.6) 11/16/17 08:28 Plt Count 472 K/MM3 (134-434) H 11/16/17 08:28 MPV 7.8 fl (7.5-11.1) 11/16/17 08:28 Absolute Neuts (auto) 6.4 K/mm3 (1.5-8.0) 11/16/17 08:28 Neutrophils % 66.8 % (42.8-82.8) D 11/16/17 08:28 Lymphocytes % 21.2 % (8-40) D 11/16/17 08:28 Monocytes % 7.8 % (3.8-10.2) 11/16/17 08:28 Eosinophils % 3.6 % (0-4.5) 11/16/17 08:28 Basophils % 0.6 % (0-2.0) 11/16/17 08:28 Nucleated RBC % 0 % (0-0) 11/16/17 08:28 Sodium 144 mmol/L (136-145) 11/16/17 08:28 Potassium 4.4 mmol/L (3.5-5.1) 11/16/17 08:28 Chloride 114 mmol/L (98-107) H 11/16/17 08:28 Carbon Dioxide 21 mmol/L (21-32) 11/16/17 08:28 Anion Gap 9 (8-16) 11/16/17 08:28 BUN 15 mg/dL (7-18) 11/16/17 08:28 Creatinine 1.3 mg/dL (0.55-1.02) H 11/16/17 08:28 Creat Clearance w eGFR 40.38 (>60) 11/16/17 08:28 POC Glucometer 191 UNITS (80-120) 11/18/17 11:38 Random Glucose 131 mg/dL (74-106) H 11/16/17 08:28 Hemoglobin A1c % 6.5 % (4.8-6.0) H 11/14/17 07:00 Lactic Acid 3.0 mmol/L (0.0-2.0) H* 11/11/17 20:00 Calcium 8.8 mg/dL (8.5-10.1) 11/16/17 08:28 Phosphorus 2.3 mg/dL (2.5-4.9) L 11/12/17 05:55 Magnesium 2.0 mg/dL (1.8-2.4) 11/12/17 05:55 Total Bilirubin 0.2 mg/dL (0.2-1.0) 11/16/17 08:28 AST 26 U/L (15-37) 11/16/17 08:28 ALT 17 U/L (12-78) 11/16/17 08:28 Alkaline Phosphatase 39 U/L (45-117) L 11/16/17 08:28 Creatine Kinase 96 IU/L (26-192) 11/12/17 12:24 Troponin I 0.29 ng/ml (0.00-0.05) H 11/12/17 12:24 Total Protein 6.5 g/dl (6.4-8.2) 11/16/17 08:28 Albumin 2.6 g/dl (3.4-5.0) L 11/16/17 08:28 Lipase Cancelled 11/11/17 16:20 Active Medications Acetaminophen (Tylenol -) 650 mg PO Q6H PRN PRN Reason: PAIN OR FEVER Apixaban (Eliquis -) 5 mg PO BID [facility] Last Admin: 08/21/18 11:18 Dose: 5 mg Atenolol (Tenormin -) 25 mg PO DAILY [facility] Last Admin: 11/18/17 11:17 Dose: 25 mg Atorvastatin Calcium (Lipitor -) 80 mg PO HS [facility] Last Admin: 11/17/17 21:36 Dose: 80 mg Enalapril Maleate (Vasotec -) 2.5 mg PO DAILY [facility] Last Admin: 11/18/17 11:17 Dose: 2.5 mg Fenofibric Acid (Trilipix -) 135 mg PO DAILY [facility] Last Admin: 11/18/17 11:18 Dose: 135 mg Ferrous Sulfate (Feosol -) 325 mg PO BID [facility] Last Admin: 11/18/17 11:17 Dose: 325 mg Ertapenem 1 gm/ Sodium (Chloride) 50 mls @ 100 mls/hr IVPB DAILY [facility]; Protocol Last Admin: 11/18/17 11:17 Dose: 100 mls/hr Insulin Aspart (Novolog Vial Sliding Scale -) 1 vial SQ ACHS [facility]; Protocol Last Admin: 11/18/17 11:39 Dose: 3 units Insulin Detemir (Levemir Vial) 15 units SQ BID@0700,2200 [facility] Last Admin: 11/18/17 06:31 Dose: 15 units Levothyroxine Sodium (Synthroid -) 50 mcg PO DAILY@0700 [facility] Last Admin: 11/18/17 06:31 Dose: 50 mcg Magnesium Hydroxide (Milk Of Magnesia -) 30 ml PO DAILY PRN PRN Reason: CONSTIPATION Physical exam No Distress, Calm. Comfortable Eyes: Yes: Conjunctiva Clear Neck: Yes: Supple/ no jvd Cardiovascular: Yes: Regular Rate and Rhythm Respiratory: Yes: Diminished Gastrointestinal: Yes: VAC dressing in place Edema: No Neurological: Yes: Alert Psychiatric: Yes: Alert Assessment/Plan abdominal wall abscess chronic diastolic HF AFIB DM CKD HTN Antibiotics vac dressing esbl precautions atenolol, vasotec, eliquis monitor BGM daily oob - chair Problem List - Problems (1) Abdominal wall abscess Code(s): L02.211 - CUTANEOUS ABSCESS OF ABDOMINAL WALL (2) Acute kidney injury Code(s): N17.9 - ACUTE KIDNEY FAILURE, UNSPECIFIED (3) Afib Code(s): I48.91 - UNSPECIFIED ATRIAL FIBRILLATION Qualifiers: Atrial fibrillation type: chronic Qualified Code(s): I48.2 - Chronic atrial fibrillation (4) Elevated troponin Code(s): R74.8 - ABNORMAL LEVELS OF OTHER SERUM ENZYMES (5) HTN (hypertension) Code(s): I10 - ESSENTIAL (PRIMARY) HYPERTENSION (6) IDDM (insulin dependent diabetes mellitus) Code(s): E11.9 - TYPE 2 DIABETES MELLITUS WITHOUT COMPLICATIONS; Z79.4 - [facility] (CURRENT) USE OF INSULIN
--- NOTE | 2017-11-18 13:06 | PN ---
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, Physician History of Present Illness: stable no complaints - Current Medication List Current Medications: Active Medications Acetaminophen (Tylenol -) 650 mg PO Q6H PRN PRN Reason: PAIN OR FEVER Amoxicillin/Clavulanate Potassium (Augmentin - 500mg Tablet) 1 tab PO BID@0800, 1730 [facility] Apixaban (Eliquis -) 5 mg PO BID [facility] Last Admin: 11/18/17 11:18 Dose: 5 mg Atenolol (Tenormin -) 25 mg PO DAILY [facility] Last Admin: 11/18/17 11:17 Dose: 25 mg Atorvastatin Calcium (Lipitor -) 80 mg PO HS [facility] Last Admin: 11/17/17 21:36 Dose: 80 mg Enalapril Maleate (Vasotec -) 2.5 mg PO DAILY [facility] Last Admin: 11/18/17 11:17 Dose: 2.5 mg Fenofibric Acid (Trilipix -) 135 mg PO DAILY [facility] Last Admin: 11/18/17 11:18 Dose: 135 mg Ferrous Sulfate (Feosol -) 325 mg PO BID [facility] Last Admin: 11/18/17 11:17 Dose: 325 mg Ertapenem 1 gm/ Sodium (Chloride) 50 mls @ 100 mls/hr IVPB DAILY [facility]; Protocol Last Admin: 11/18/17 11:17 Dose: 100 mls/hr Insulin Aspart (Novolog Vial Sliding Scale -) 1 vial SQ ACHS [facility]; Protocol Last Admin: 11/18/17 11:39 Dose: 3 units Insulin Detemir (Levemir Vial) 15 units SQ BID@0700,2200 [facility] Last Admin: 11/18/17 06:31 Dose: 15 units Levothyroxine Sodium (Synthroid -) 50 mcg PO DAILY@0700 [facility] Last Admin: 11/18/17 06:31 Dose: 50 mcg Magnesium Hydroxide (Milk Of Magnesia -) 30 ml PO DAILY PRN PRN Reason: CONSTIPATION - Objective Vital Signs: Vital Signs Temperature 98.6 F 11/18/17 05:30 Pulse Rate 59 L 11/18/17 05:30 Respiratory Rate 20 11/17/17 21:00 Blood Pressure 121/45 11/18/17 05:30 O2 Sat by Pulse Oximetry (%) 96 11/17/17 21:00 Constitutional: Yes: No Distress, Calm Cardiovascular: Yes: Regular Rate and Rhythm Respiratory: Yes: Regular, CTA Bilaterally Gastrointestinal: Yes: Normal Bowel Sounds, Soft Musculoskeletal: Yes: WNL Extremities: Yes: WNL Wound/Incision: Yes: Dressing Dry and Intact Neurological: Yes: Alert, Oriented Psychiatric: Yes: Alert Labs: CBC, BMP 11/16/17 08:28 11/16/17 08:28 Assessment/Plan Problem List - Problems (1) Sepsis Code(s): A41.9 - SEPSIS, UNSPECIFIED ORGANISM (2) Abdominal wall abscess Code(s): L02.211 - CUTANEOUS ABSCESS OF ABDOMINAL WALL (3) Afib Code(s): I48.91 - UNSPECIFIED ATRIAL FIBRILLATION Qualifiers: Atrial fibrillation type: chronic Qualified Code(s): I48.2 - Chronic atrial fibrillation (4) Elevated troponin Code(s): R74.8 - ABNORMAL LEVELS OF OTHER SERUM ENZYMES (5) CKD (chronic kidney disease) stage 3, GFR 30-59 ml/min Code(s): N18.3 - CHRONIC KIDNEY DISEASE, STAGE 3 (MODERATE) (6) Dementia Code(s): F03.90 - UNSPECIFIED DEMENTIA WITHOUT BEHAVIORAL DISTURBANCE (7) HTN (hypertension) Code(s): I10 - ESSENTIAL (PRIMARY) HYPERTENSION (8) IDDM (insulin dependent diabetes mellitus) Code(s): E11.9 - TYPE 2 DIABETES MELLITUS WITHOUT COMPLICATIONS; Z79.4 - [facility] (CURRENT) USE OF INSULIN patient has already rony and deep plan all cx reports noted added augmentin to the regimen final plan awaited once we have final plan will give final recomenndations after surgery clears
[2017-11-18] MEDS: AMOX TR/POT CLAV 500MG/125MG TABLETS (FP) PO SCH (16:49)
[2017-11-18] MEDS: ACETAMINOPHEN 325 MG TABLET (FP) PO PRN (21:34)
[2017-11-18] MEDS: ATORVASTATIN CA 80 MG TABLET (FP) PO SCH (21:35)
[2017-11-19] MEDS: LEVOTHYROXINE NA 100 MCG TABLET (FP) PO SCH (06:58)
[2017-11-19] MEDS: INSULIN SLIDING SCALE (NOVOLOG) 1 VIAL SQ SCH ×4 (07:02→22:40)
[2017-11-19] MEDS: INSULIN (LEVEMIR) 100 UNITS/ML UNITS SQ SCH ×2 (07:02→22:30)
[2017-11-19 07:38] LABS: HEMATOCRIT 26.8 % (32.4-45.2); HEMOGLOBIN 8.7 GM/dL (10.7-15.3); MCHC 32.3 g/dl (32.0-36.0); MEAN CELL VOLUME 95.9 fl (80-96); MEAN PLT VOLUME 7.8 fl (7.5-11.1); PLATELET COUNT 416 K/MM3 (134-434); RBC 2.79 M/mm3 (3.60-5.2); RDW 14.3 % (11.6-15.6); WHITE BLOOD COUNT 10.5 K/mm3 (4.0-10.0)
[2017-11-19] MEDS ORDERED: INSULIN (NOVOLOG) ASPART 100 UNITS/ML 10ML VIAL ONE ×4 (07:48→18:38)
[2017-11-19 08:45] LABS: CHLORIDE 111 mmol/L (98-107); POTASSIUM 4.4 mmol/L (3.5-5.1); SODIUM 143 mmol/L (136-145)
[2017-11-19 08:54] LABS: ALBUMIN 2.7 g/dl (3.4-5.0); ALK PHOS 47 U/L (45-117); ANION GAP 10 MMOL/L (8-16); BILIRUBIN,TOTAL 0.2 mg/dL (0.2-1.0); BLOOD UREA NITROGEN 22 mg/dL (7-18); CALCIUM 9.3 mg/dL (8.5-10.1); CO2 22 mmol/L (21-32); CREATININE 1.3 mg/dL (0.55-1.02); GLUCOSE,RANDOM 145 mg/dL (74-106); SGOT/AST 25 U/L (15-37); SGPT/ALT 22 U/L (12-78); TOT PROT 6.7 g/dl (6.4-8.2)
[2017-11-19] MEDS: FENOFIBRIC ACID 135 MG CAP PO SCH (10:59)
[2017-11-19] MEDS: AMOX TR/POT CLAV 500MG/125MG TABLETS (FP) PO SCH ×2 (10:59→18:01)
[2017-11-19] MEDS: ENALAPRIL MALEATE 2.5 MG TABLET (FP) PO SCH (10:59)
[2017-11-19] MEDS: ATENOLOL 25 MG TABLET (FP) PO SCH (10:59)
[2017-11-19] MEDS: FERROUS SO4 325 MG TABLET (FP) PO SCH ×2 (11:00→22:30)
[2017-11-19] MEDS: ERTAPENEM SODIUM 1 GM in SODIUM CHLORIDE 50 ML IVPB SCH (11:00)
[2017-11-19] MEDS: APIXABAN 5 MG TABLET PO SCH ×2 (11:00→22:30)
--- NOTE | 2017-11-19 12:53 | PN ---
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 (short form) - Note 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: patient seen this am no complaints Vital Signs Period Temp Pulse Resp BP Sys/Hall Pulse Ox Last 24 Hr 98.5 F-99.4 F 60-68 18-19 108-142/50-62 96 Active Medications Acetaminophen (Tylenol -) 650 mg PO Q6H PRN PRN Reason: PAIN OR FEVER Last Admin: 11/18/17 21:34 Dose: 650 mg Amoxicillin/Clavulanate Potassium (Augmentin - 500mg Tablet) 1 tab PO BID@0800, 1730 [facility] Last Admin: 11/19/17 10:59 Dose: 1 tab Apixaban (Eliquis -) 5 mg PO BID [facility] Last Admin: 11/19/17 11:00 Dose: 5 mg Atenolol (Tenormin -) 25 mg PO DAILY [facility] Last Admin: 11/19/17 10:59 Dose: 25 mg Atorvastatin Calcium (Lipitor -) 80 mg PO HS [facility] Last Admin: 11/18/17 21:35 Dose: 80 mg Enalapril Maleate (Vasotec -) 2.5 mg PO DAILY [facility] Last Admin: 11/19/17 10:59 Dose: 2.5 mg Fenofibric Acid (Trilipix -) 135 mg PO DAILY [facility] Last Admin: 11/19/17 10:59 Dose: 135 mg Ferrous Sulfate (Feosol -) 325 mg PO BID [facility] Last Admin: 11/19/17 11:00 Dose: 325 mg Ertapenem 1 gm/ Sodium (Chloride) 50 mls @ 100 mls/hr IVPB DAILY [facility]; Protocol Last Admin: 11/19/17 11:00 Dose: 100 mls/hr Insulin Aspart (Novolog Vial Sliding Scale -) 1 vial SQ ACHS [facility]; Protocol Last Admin: 11/19/17 11:49 Dose: 3 units Insulin Detemir (Levemir Vial) 15 units SQ BID@0700,2200 [facility] Last Admin: 11/19/17 07:02 Dose: 15 units Levothyroxine Sodium (Synthroid -) 50 mcg PO DAILY@0700 [facility] Last Admin: 11/19/17 06:58 Dose: 50 mcg Magnesium Hydroxide (Milk Of Magnesia -) 30 ml PO DAILY PRN PRN Reason: CONSTIPATION CBC,CMP WBC 10.5 K/mm3 (4.0-10.0) H 11/19/17 07:25 RBC 2.79 M/mm3 (3.60-5.2) L 11/19/17 07:25 Hgb 8.7 GM/dL (10.7-15.3) L 11/19/17 07:25 Hct 26.8 % (32.4-45.2) L 11/19/17 07:25 MCV 95.9 fl (80-96) 11/19/17 07:25 MCH 31.0 pg (25.7-33.7) 11/19/17 07:25 MCHC 32.3 g/dl (32.0-36.0) 11/19/17 07:25 RDW 14.3 % (11.6-15.6) 11/19/17 07:25 Plt Count 416 K/MM3 (134-434) 11/19/17 07:25 MPV 7.8 fl (7.5-11.1) 11/19/17 07:25 Absolute Neuts (auto) 6.4 K/mm3 (1.5-8.0) 11/16/17 08:28 Neutrophils % 66.8 % (42.8-82.8) D 11/16/17 08:28 Lymphocytes % 21.2 % (8-40) D 11/16/17 08:28 Monocytes % 7.8 % (3.8-10.2) 11/16/17 08:28 Eosinophils % 3.6 % (0-4.5) 11/16/17 08:28 Basophils % 0.6 % (0-2.0) 11/16/17 08:28 Nucleated RBC % 0 % (0-0) 11/16/17 08:28 Sodium 143 mmol/L (136-145) 11/19/17 07:25 Potassium 4.4 mmol/L (3.5-5.1) 11/19/17 07:25 Chloride 111 mmol/L (98-107) H 11/19/17 07:25 Carbon Dioxide 22 mmol/L (21-32) 11/19/17 07:25 Anion Gap 10 MMOL/L (8-16) 11/19/17 07:25 BUN 22 mg/dL (7-18) H 11/19/17 07:25 Creatinine 1.3 mg/dL (0.55-1.02) H 11/19/17 07:25 Creat Clearance w eGFR 40.38 (>60) 11/19/17 07:25 POC Glucometer 187 UNITS (80-120) 11/19/17 11:49 Random Glucose 145 mg/dL (74-106) H 11/19/17 07:25 Hemoglobin A1c % 6.5 % (4.8-6.0) H 11/14/17 07:00 Lactic Acid 3.0 mmol/L (0.0-2.0) H* 11/11/17 20:00 Calcium 9.3 mg/dL (8.5-10.1) 11/19/17 07:25 Phosphorus 2.3 mg/dL (2.5-4.9) L 11/12/17 05:55 Magnesium 2.0 mg/dL (1.8-2.4) 11/12/17 05:55 Total Bilirubin 0.2 mg/dL (0.2-1.0) 11/19/17 07:25 AST 25 U/L (15-37) 11/19/17 07:25 ALT 22 U/L (12-78) 11/19/17 07:25 Alkaline Phosphatase 47 U/L (45-117) 11/19/17 07:25 Creatine Kinase 96 IU/L (26-192) 11/12/17 12:24 Troponin I 0.29 ng/ml (0.00-0.05) H 11/12/17 12:24 Total Protein 6.7 g/dl (6.4-8.2) 11/19/17 07:25 Albumin 2.7 g/dl (3.4-5.0) L 11/19/17 07:25 Lipase Cancelled 11/11/17 16:20 physical exam No Distress, Calm. Comfortable Eyes: Yes: Conjunctiva Clear Neck: Yes: Supple/ no jvd Cardiovascular: Yes: Regular Rate and Rhythm Respiratory: Yes: Diminished Gastrointestinal: Yes: VAC dressing in place Edema: No Neurological: Yes: Alert Psychiatric: Yes: Alert Assessment/Plan abdominal wall abscess chronic diastolic HF AFIB DM CKD HTN antibiotics per ID vac dressing esbl precautions atenolol, vasotec, eliquis monitor BGM- INSULIN coverage daily oob - chair discussed with dr ga
--- NOTE | 2017-11-19 13:20 | PN ---
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, Physician History of Present Illness: patient stable no new issues - Current Medication List Current Medications: Active Medications Acetaminophen (Tylenol -) 650 mg PO Q6H PRN PRN Reason: PAIN OR FEVER Last Admin: 11/18/17 21:34 Dose: 650 mg Amoxicillin/Clavulanate Potassium (Augmentin - 500mg Tablet) 1 tab PO BID@0800, 1730 [facility] Last Admin: 11/19/17 10:59 Dose: 1 tab Apixaban (Eliquis -) 5 mg PO BID [facility] Last Admin: 11/19/17 11:00 Dose: 5 mg Atenolol (Tenormin -) 25 mg PO DAILY [facility] Last Admin: 11/19/17 10:59 Dose: 25 mg Atorvastatin Calcium (Lipitor -) 80 mg PO HS [facility] Last Admin: 11/18/17 21:35 Dose: 80 mg Enalapril Maleate (Vasotec -) 2.5 mg PO DAILY [facility] Last Admin: 11/19/17 10:59 Dose: 2.5 mg Fenofibric Acid (Trilipix -) 135 mg PO DAILY [facility] Last Admin: 11/19/17 10:59 Dose: 135 mg Ferrous Sulfate (Feosol -) 325 mg PO BID [facility] Last Admin: 11/19/17 11:00 Dose: 325 mg Ertapenem 1 gm/ Sodium (Chloride) 50 mls @ 100 mls/hr IVPB DAILY [facility]; Protocol Last Admin: 11/19/17 11:00 Dose: 100 mls/hr Insulin Aspart (Novolog Vial Sliding Scale -) 1 vial SQ ACHS [facility]; Protocol Last Admin: 11/19/17 11:49 Dose: 3 units Insulin Detemir (Levemir Vial) 15 units SQ BID@0700,2200 [facility] Last Admin: 11/19/17 07:02 Dose: 15 units Levothyroxine Sodium (Synthroid -) 50 mcg PO DAILY@0700 [facility] Last Admin: 11/19/17 06:58 Dose: 50 mcg Magnesium Hydroxide (Milk Of Magnesia -) 30 ml PO DAILY PRN PRN Reason: CONSTIPATION - Objective Vital Signs: Vital Signs Temperature 98.7 F 11/19/17 05:59 Pulse Rate 60 11/19/17 05:59 Respiratory Rate 18 11/19/17 05:59 Blood Pressure 122/50 11/19/17 05:59 O2 Sat by Pulse Oximetry (%) 96 11/18/17 21:00 Constitutional: Yes: No Distress, Calm, Obese Cardiovascular: Yes: Regular Rate and Rhythm Respiratory: Yes: Regular, CTA Bilaterally Gastrointestinal: Yes: Normal Bowel Sounds, Soft Musculoskeletal: Yes: WNL Extremities: Yes: WNL Wound/Incision: Yes: Other (wound vac in place) Neurological: Yes: Alert Labs: CBC, BMP 11/19/17 07:25 11/19/17 07:25 Assessment/Plan Problem List - Problems (1) Sepsis Code(s): A41.9 - SEPSIS, UNSPECIFIED ORGANISM (2) Abdominal wall abscess Code(s): L02.211 - CUTANEOUS ABSCESS OF ABDOMINAL WALL (3) Afib Code(s): I48.91 - UNSPECIFIED ATRIAL FIBRILLATION Qualifiers: Atrial fibrillation type: chronic Qualified Code(s): I48.2 - Chronic atrial fibrillation (4) Elevated troponin Code(s): R74.8 - ABNORMAL LEVELS OF OTHER SERUM ENZYMES (5) CKD (chronic kidney disease) stage 3, GFR 30-59 ml/min Code(s): N18.3 - CHRONIC KIDNEY DISEASE, STAGE 3 (MODERATE) (6) Dementia Code(s): F03.90 - UNSPECIFIED DEMENTIA WITHOUT BEHAVIORAL DISTURBANCE (7) HTN (hypertension) Code(s): I10 - ESSENTIAL (PRIMARY) HYPERTENSION (8) IDDM (insulin dependent diabetes mellitus) Code(s): E11.9 - TYPE 2 DIABETES MELLITUS WITHOUT COMPLICATIONS; Z79.4 - HIRED HELP (CURRENT) USE OF INSULIN patient has already zaido and deep plan all cx reports noted continue current mgmt wound care we will give ertapenam for 10 days total from starting patient needs to be on ampicillin for 2 more weeks
[2017-11-19] MEDS ORDERED: PT OWN MED DRAWER 7, Y5N ONE (22:12)
[2017-11-19] MEDS: ATORVASTATIN CA 80 MG TABLET (FP) PO SCH (22:30)
[2017-11-20] MEDS: ACETAMINOPHEN 325 MG TABLET (FP) PO PRN ×3 (00:54→17:16)
[2017-11-20] MEDS: INSULIN (LEVEMIR) 100 UNITS/ML UNITS SQ SCH ×2 (06:01→21:16)
[2017-11-20] MEDS: INSULIN SLIDING SCALE (NOVOLOG) 1 VIAL SQ SCH ×4 (06:03→21:21)
[2017-11-20] MEDS: LEVOTHYROXINE NA 100 MCG TABLET (FP) PO SCH (06:07)
[2017-11-20] MEDS: AMOX TR/POT CLAV 500MG/125MG TABLETS (FP) PO SCH ×2 (09:00→17:16)
[2017-11-20] MEDS ORDERED: PT OWN MED DRAWER 7, Y5N ONE ×3 (10:34→21:07)
[2017-11-20] MEDS: ENALAPRIL MALEATE 2.5 MG TABLET (FP) PO SCH (10:40)
[2017-11-20] MEDS: ATENOLOL 25 MG TABLET (FP) PO SCH (10:40)
[2017-11-20] MEDS: FERROUS SO4 325 MG TABLET (FP) PO SCH ×2 (10:40→21:17)
[2017-11-20] MEDS: ERTAPENEM SODIUM 1 GM in SODIUM CHLORIDE 50 ML IVPB SCH (10:40)
[2017-11-20] MEDS: FENOFIBRIC ACID 135 MG CAP PO SCH (10:41)
[2017-11-20] MEDS: APIXABAN 5 MG TABLET PO SCH ×2 (10:41→21:18)
[2017-11-20] MEDS ORDERED: PICC LINE 8 ML FLUSH PROTOCOL IVPUSH PRN (11:08)
--- NOTE | 2017-11-20 11:09 | PN ---
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 (short form) - Note 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: comfortable no new issues afebrile Vital Signs Temp 98.8 F 11/20/17 05:02 Pulse 60 11/20/17 05:02 Resp 18 11/20/17 05:02 BP 132/64 11/20/17 05:02 Pulse Ox 97 11/19/17 21:00 Intake & Output 11/19/17 11/19/17 11/20/17 11:59 23:59 11:59 Intake Total 400 650 Balance 400 650 Intake: IVPB 50 Oral 350 650 Other: Voiding Method Incontinent Incontinent # Unmeasured Voids Void 2 2 3 Bowel Movement No No No # Bowel Movements 0 0 Active Medications Acetaminophen (Tylenol -) 650 mg PO Q6H PRN PRN Reason: PAIN OR FEVER Last Admin: 11/20/17 00:54 Dose: 650 mg Amoxicillin/Clavulanate Potassium (Augmentin - 500mg Tablet) 1 tab PO BID@0800, 1730 [facility] Last Admin: 11/20/17 09:00 Dose: 1 tab Apixaban (Eliquis -) 5 mg PO BID [facility] Last Admin: 11/20/17 10:41 Dose: 5 mg Atenolol (Tenormin -) 25 mg PO DAILY [facility] Last Admin: 11/20/17 10:40 Dose: 25 mg Atorvastatin Calcium (Lipitor -) 80 mg PO HS [facility] Last Admin: 11/19/17 22:30 Dose: 80 mg Enalapril Maleate (Vasotec -) 2.5 mg PO DAILY [facility] Last Admin: 11/20/17 10:40 Dose: 2.5 mg Fenofibric Acid (Trilipix -) 135 mg PO DAILY [facility] Last Admin: 11/20/17 10:41 Dose: 135 mg Ferrous Sulfate (Feosol -) 325 mg PO BID [facility] Last Admin: 11/20/17 10:40 Dose: 325 mg IV Flush (Picc Line Flush) 8 ml IVPUSH PRN PRN PRN Reason: Protocol Ertapenem 1 gm/ Sodium (Chloride) 50 mls @ 100 mls/hr IVPB DAILY [facility]; Protocol Last Admin: 11/20/17 10:40 Dose: 100 mls/hr Insulin Aspart (Novolog Vial Sliding Scale -) 1 vial SQ ACHS [facility]; Protocol Last Admin: 11/20/17 06:03 Dose: Not Given Insulin Detemir (Levemir Vial) 15 units SQ BID@0700,2200 [facility] Last Admin: 11/20/17 06:01 Dose: Not Given Levothyroxine Sodium (Synthroid -) 50 mcg PO DAILY@0700 [facility] Last Admin: 11/20/17 06:07 Dose: 50 mcg Magnesium Hydroxide (Milk Of Magnesia -) 30 ml PO DAILY PRN PRN Reason: CONSTIPATION CBC, BMP 11/19/17 07:25 11/19/17 07:25 Physical exam No Distress, Calm. Comfortable Eyes: Yes: Conjunctiva Clear Neck: Yes: Supple/ no jvd Cardiovascular: Yes: Regular Rate and Rhythm Respiratory: Yes: Diminished Gastrointestinal: Yes: VAC dressing in place Edema: No Neurological: Yes: Alert Psychiatric: Yes: Alert Assessment/Plan abdominal wall abscess chronic diastolic HF AFIB DM CKD HTN Antibiotics vac dressing esbl precautions atenolol, vasotec, eliquis monitor BGM-- better daily oob - chair Discharge planing Problem List - Problems (1) Abdominal wall abscess Code(s): L02.211 - CUTANEOUS ABSCESS OF ABDOMINAL WALL (2) Acute kidney injury Code(s): N17.9 - ACUTE KIDNEY FAILURE, UNSPECIFIED (3) Afib Code(s): I48.91 - UNSPECIFIED ATRIAL FIBRILLATION Qualifiers: Atrial fibrillation type: chronic Qualified Code(s): I48.2 - Chronic atrial fibrillation (4) Elevated troponin Code(s): R74.8 - ABNORMAL LEVELS OF OTHER SERUM ENZYMES (5) HTN (hypertension) Code(s): I10 - ESSENTIAL (PRIMARY) HYPERTENSION (6) IDDM (insulin dependent diabetes mellitus) Code(s): E11.9 - TYPE 2 DIABETES MELLITUS WITHOUT COMPLICATIONS; Z79.4 - ALF (CURRENT) USE OF INSULIN
[2017-11-20] MEDS ORDERED: INSULIN (NOVOLOG) ASPART 100 UNITS/ML 10ML VIAL ONE ×2 (11:45→21:07)
--- NOTE | 2017-11-20 14:25 | PN ---
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, Physician History of Present Illness: stable no new issues - Current Medication List Current Medications: Active Medications Acetaminophen (Tylenol -) 650 mg PO Q6H PRN PRN Reason: PAIN OR FEVER Last Admin: 11/20/17 11:25 Dose: 650 mg Amoxicillin/Clavulanate Potassium (Augmentin - 500mg Tablet) 1 tab PO BID@0800, 1730 [facility] Last Admin: 11/20/17 09:00 Dose: 1 tab Apixaban (Eliquis -) 5 mg PO BID [facility] Last Admin: 11/20/17 10:41 Dose: 5 mg Atenolol (Tenormin -) 25 mg PO DAILY [facility] Last Admin: 11/20/17 10:40 Dose: 25 mg Atorvastatin Calcium (Lipitor -) 80 mg PO HS [facility] Last Admin: 11/19/17 22:30 Dose: 80 mg Enalapril Maleate (Vasotec -) 2.5 mg PO DAILY [facility] Last Admin: 11/20/17 10:40 Dose: 2.5 mg Fenofibric Acid (Trilipix -) 135 mg PO DAILY [facility] Last Admin: 11/20/17 10:41 Dose: 135 mg Ferrous Sulfate (Feosol -) 325 mg PO BID [facility] Last Admin: 11/20/17 10:40 Dose: 325 mg IV Flush (Picc Line Flush) 8 ml IVPUSH PRN PRN PRN Reason: Protocol Ertapenem 1 gm/ Sodium (Chloride) 50 mls @ 100 mls/hr IVPB DAILY [facility]; Protocol Last Admin: 11/20/17 10:40 Dose: 100 mls/hr Insulin Aspart (Novolog Vial Sliding Scale -) 1 vial SQ ACHS [facility]; Protocol Last Admin: 11/20/17 11:40 Dose: 3 units Insulin Detemir (Levemir Vial) 15 units SQ BID@0700,2200 [facility] Last Admin: 11/20/17 06:01 Dose: Not Given Levothyroxine Sodium (Synthroid -) 50 mcg PO DAILY@0700 [facility] Last Admin: 11/20/17 06:07 Dose: 50 mcg Magnesium Hydroxide (Milk Of Magnesia -) 30 ml PO DAILY PRN PRN Reason: CONSTIPATION - Objective Vital Signs: Vital Signs Temperature 99.1 F 11/20/17 14:00 Pulse Rate 61 11/20/17 14:00 Respiratory Rate 20 11/20/17 14:00 Blood Pressure 98/43 11/20/17 14:00 O2 Sat by Pulse Oximetry (%) 97 11/19/17 21:00 Constitutional: Yes: No Distress, Calm Cardiovascular: Yes: Regular Rate and Rhythm Respiratory: Yes: Regular, CTA Bilaterally Gastrointestinal: Yes: Normal Bowel Sounds, Soft Musculoskeletal: Yes: WNL Extremities: Yes: WNL Wound/Incision: Yes: Other (wound care) Neurological: Yes: Alert, Oriented Psychiatric: Yes: Alert, Oriented Labs: CBC, BMP 11/19/17 07:25 11/19/17 07:25 Assessment/Plan Problem List - Problems (1) Sepsis Code(s): A41.9 - SEPSIS, UNSPECIFIED ORGANISM (2) Abdominal wall abscess Code(s): L02.211 - CUTANEOUS ABSCESS OF ABDOMINAL WALL (3) Afib Code(s): I48.91 - UNSPECIFIED ATRIAL FIBRILLATION Qualifiers: Atrial fibrillation type: chronic Qualified Code(s): I48.2 - Chronic atrial fibrillation (4) Elevated troponin Code(s): R74.8 - ABNORMAL LEVELS OF OTHER SERUM ENZYMES (5) CKD (chronic kidney disease) stage 3, GFR 30-59 ml/min Code(s): N18.3 - CHRONIC KIDNEY DISEASE, STAGE 3 (MODERATE) (6) Dementia Code(s): F03.90 - UNSPECIFIED DEMENTIA WITHOUT BEHAVIORAL DISTURBANCE (7) HTN (hypertension) Code(s): I10 - ESSENTIAL (PRIMARY) HYPERTENSION (8) IDDM (insulin dependent diabetes mellitus) Code(s): E11.9 - TYPE 2 DIABETES MELLITUS WITHOUT COMPLICATIONS; Z79.4 - 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
[2017-11-20] MEDS: ATORVASTATIN CA 80 MG TABLET (FP) PO SCH (21:17)
[2017-11-21] MEDS: LEVOTHYROXINE NA 100 MCG TABLET (FP) PO SCH (06:26)
[2017-11-21] MEDS: INSULIN SLIDING SCALE (NOVOLOG) 1 VIAL SQ SCH ×3 (06:26→16:55)
[2017-11-21] MEDS: INSULIN (LEVEMIR) 100 UNITS/ML UNITS SQ SCH (06:27)
[2017-11-21] MEDS ORDERED: INSULIN (NOVOLOG) ASPART 100 UNITS/ML 10ML VIAL ONE ×2 (06:30→16:56)
[2017-11-21] MEDS: AMOX TR/POT CLAV 500MG/125MG TABLETS (FP) PO SCH ×2 (08:33→16:57)
[2017-11-21] MEDS: ERTAPENEM SODIUM 1 GM in SODIUM CHLORIDE 50 ML IVPB SCH (10:20)
[2017-11-21] MEDS: ENALAPRIL MALEATE 2.5 MG TABLET (FP) PO SCH (10:21)
[2017-11-21] MEDS: ATENOLOL 25 MG TABLET (FP) PO SCH (10:21)
[2017-11-21] MEDS: FERROUS SO4 325 MG TABLET (FP) PO SCH (10:21)
[2017-11-21] MEDS: FENOFIBRIC ACID 135 MG CAP PO SCH (10:21)
[2017-11-21] MEDS: APIXABAN 5 MG TABLET PO SCH (10:21)
--- NOTE | 2017-11-21 10:33 | DS ---
Physical Examination Vital Signs: Vital Signs Temperature 98.2 F 11/21/17 10:00 Pulse Rate 58 L 11/21/17 10:00 Respiratory Rate 20 11/21/17 10:00 Blood Pressure 129/52 11/21/17 10:00 O2 Sat by Pulse Oximetry (%) 98 11/20/17 21:00 Findings/Remarks: feels well no complains Constitutional: Yes: No Distress, Calm Neck: Yes: Supple Cardiovascular: Yes: Regular Rate and Rhythm Respiratory: Yes: CTA Bilaterally Gastrointestinal: Yes: Soft Edema: No Wound/Incision: Yes: Other. No: Dressing Dry and Intact (wound vac +) Neurological: Yes: Alert Labs: CBC, BMP 11/19/17 07:25 11/19/17 07:25 Discharge Summary Reason For Visit: ABSCESS OF ABDOMINAL WALL Current Active Problems Abdominal wall abscess (Acute) Chronic diastolic CHF (congestive heart failure) (Acute) Diabetes (Acute) Hyperlipidemia (Acute) Sepsis (Acute) Hospital Course: s/p i/d w/c - poly+ E coli - ESBl abx per i/d wound care per surgeon/ wound care team Meds reconcilled picc line today-- Anticipate d/c after that. Discussed with nursing staff also as well as case assistant. d/c time 35 min-- examining/ documenting Condition: Stable - Instructions Referrals: Gonzalo Howell MD [Staff Physician] - Shanae Brooks MD [Primary Care Provider] - Disposition: NURSING HOME FACILITY - Home Medications Comprehensive Discharge Medication List: Ambulatory Orders Acetaminophen [Tylenol] 650 mg PO Q6H PRN 12/26/14 Atenolol [Tenormin -] 25 mg PO DAILY 12/26/14 Enalapril Maleate [Vasotec] 2.5 mg PO DAILY 12/26/14 Levothyroxine [Synthroid -] 50 mcg PO DAILY 12/26/14 Ranitidine HCl [Zantac] 150 mg PO BID 12/26/14 Ferrous Sulfate [Feosol] 325 mg PO BID ud 12/27/14 Atorvastatin Ca [Lipitor] 80 mg PO HS 09/24/17 Fenofibric Acid (Choline) [Trilipix] 135 mg PO DAILY 09/24/17 Magnesium Hydroxide [Milk of Magnesia] 400 mg PO DAILY PRN 09/24/17 Multivitamin [One Daily] 1 each PO DAILY 09/24/17 Sodium Phosphate/Na Biphos [Fleet Adult Rectal Enema -] 133 ml RC DAILY PRN Vit A/Vitamin D3/E/Aloe V/Zinc [Periguard Ointment] 100 gm TP TID 09/24/17 Apixaban [Eliquis] 5 mg PO BID #90 tablet 09/30/17 Amox-Tr/K Cl [Augmentin 500-125mg Tablet -] 1 tab PO BID@0800,1730 14 Days #28 tablet 11/21/17 Ertapenem Sodium [Invanz -] 1 gm IVPB DAILY 8 Days #8 vial 11/21/17 Insulin (Levemir) [Levemir Vial] 15 units SQ BID@0700,2200 units 11/21/17 Insulin Sliding Scale [Novolog Vial Sliding Scale -] 1 vial SQ ACHS units 11/21 Picc Line Flush [Picc Line Flush -] 8 ml IVPUSH PRN PRN ml 11/21/17
--- NOTE | 2017-11-21 14:00 | PN ---
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, Physician History of Present Illness: stable no new issues wound stable - Current Medication List Current Medications: Active Medications Acetaminophen (Tylenol -) 650 mg PO Q6H PRN PRN Reason: PAIN OR FEVER Last Admin: 11/20/17 17:16 Dose: 650 mg Amoxicillin/Clavulanate Potassium (Augmentin - 500mg Tablet) 1 tab PO BID@0800, 1730 [facility] Last Admin: 11/21/17 08:33 Dose: 1 tab Apixaban (Eliquis -) 5 mg PO BID [facility] Last Admin: 11/21/17 10:21 Dose: 5 mg Atenolol (Tenormin -) 25 mg PO DAILY [facility] Last Admin: 11/21/17 10:21 Dose: 25 mg Atorvastatin Calcium (Lipitor -) 80 mg PO HS [facility] Last Admin: 11/20/17 21:17 Dose: 80 mg Enalapril Maleate (Vasotec -) 2.5 mg PO DAILY [facility] Last Admin: 11/21/17 10:21 Dose: 2.5 mg Fenofibric Acid (Trilipix -) 135 mg PO DAILY [facility] Last Admin: 11/21/17 10:21 Dose: 135 mg Ferrous Sulfate (Feosol -) 325 mg PO BID [facility] Last Admin: 11/21/17 10:21 Dose: 325 mg IV Flush (Picc Line Flush) 8 ml IVPUSH PRN PRN PRN Reason: Protocol Insulin Aspart (Novolog Vial Sliding Scale -) 1 vial SQ ACHS [facility]; Protocol Last Admin: 11/21/17 11:39 Dose: Not Given Insulin Detemir (Levemir Vial) 15 units SQ BID@0700,2200 [facility] Last Admin: 11/21/17 06:27 Dose: 15 units Levothyroxine Sodium (Synthroid -) 50 mcg PO DAILY@0700 [facility] Last Admin: 11/21/17 06:26 Dose: 50 mcg Magnesium Hydroxide (Milk Of Magnesia -) 30 ml PO DAILY PRN PRN Reason: CONSTIPATION - Objective Vital Signs: Vital Signs Temperature 98.2 F 11/21/17 10:00 Pulse Rate 58 L 11/21/17 10:00 Respiratory Rate 20 11/21/17 10:00 Blood Pressure 129/52 11/21/17 10:00 O2 Sat by Pulse Oximetry (%) 98 11/20/17 21:00 Constitutional: Yes: No Distress, Calm Cardiovascular: Yes: Regular Rate and Rhythm Respiratory: Yes: Regular, CTA Bilaterally Gastrointestinal: Yes: Normal Bowel Sounds, Soft Musculoskeletal: Yes: WNL Extremities: Yes: WNL Neurological: Yes: Alert, Oriented Psychiatric: Yes: Alert, Oriented Labs: CBC, BMP 11/19/17 07:25 11/19/17 07:25 Assessment/Plan Problem List - Problems (1) Sepsis Code(s): A41.9 - SEPSIS, UNSPECIFIED ORGANISM (2) Abdominal wall abscess Code(s): L02.211 - CUTANEOUS ABSCESS OF ABDOMINAL WALL (3) Afib Code(s): I48.91 - UNSPECIFIED ATRIAL FIBRILLATION Qualifiers: Atrial fibrillation type: chronic Qualified Code(s): I48.2 - Chronic atrial fibrillation (4) Elevated troponin Code(s): R74.8 - ABNORMAL LEVELS OF OTHER SERUM ENZYMES (5) CKD (chronic kidney disease) stage 3, GFR 30-59 ml/min Code(s): N18.3 - CHRONIC KIDNEY DISEASE, STAGE 3 (MODERATE) (6) Dementia Code(s): F03.90 - UNSPECIFIED DEMENTIA WITHOUT BEHAVIORAL DISTURBANCE (7) HTN (hypertension) Code(s): I10 - ESSENTIAL (PRIMARY) HYPERTENSION (8) IDDM (insulin dependent diabetes mellitus) Code(s): E11.9 - TYPE 2 DIABETES MELLITUS WITHOUT COMPLICATIONS; Z79.4 - PENITENTIARY (CURRENT) USE OF INSULIN patient has already vanco and zosyn plan all cx reports noted continue current mgmt wound care ertapenam changed to meropenam rest as per the team
[2017-11-21 15:14] VITALS: BP 112/50; PULSE 53; TEMP 98.7
[2017-11-21] MEDS: MEROPENEM 1 GM in DEXTROSE 5%-WATER 100 ML IVPB SCH ×2 (16:48→17:43)
== END 2017-11-21 18:43 | DRG 854 ==
LOC: JER 15:25 → JERBED 21:52 → J6S 11-12 15:40
PROVIDERS: ADMIT Internal Medicine; ATTEND Internal Medicine
PROC: 0JB80ZZ Excision of Abdomen Subcutaneous Tissue and Fascia, Open Approach (ICD-10-PCS; principal; 2017-11-12 11:00)
PROC: 3E10X8Z Irrigation of Skin and Mucous Membranes using Irrigating Substance (ICD-10-PCS; 2017-11-14)
PROC: 02HV33Z Insertion of Infusion Device into Superior Vena Cava, Percutaneous Approach (ICD-10-PCS; 2017-11-21)
PROC: B518ZZA Fluoroscopy of Superior Vena Cava, Guidance (ICD-10-PCS; 2017-11-21)
DX: A41.9 Sepsis, unspecified organism (principal); L02.211 Cutaneous abscess of abdominal wall; N17.9 Acute kidney failure, unspecified; I13.0 Hypertensive heart and chronic kidney disease with heart failure and stage 1 through stage 4 chronic kidney disease, or unspecified chronic kidney disease; I50.32 Chronic diastolic (congestive) heart failure; I24.8 Other forms of acute ischemic heart disease; I48.2 Chronic atrial fibrillation; R74.8 Abnormal levels of other serum enzymes; E11.9 Type 2 diabetes mellitus without complications; F03.90 Unspecified dementia, unspecified severity, without behavioral disturbance, psychotic disturbance, mood disturbance, and anxiety; E03.9 Hypothyroidism, unspecified; E78.5 Hyperlipidemia, unspecified; D64.9 Anemia, unspecified; E11.22 Type 2 diabetes mellitus with diabetic chronic kidney disease; N18.3 Chronic kidney disease, stage 3 (moderate); B95.2 Enterococcus as the cause of diseases classified elsewhere; B96.20 Unspecified Escherichia coli [E. coli] as the cause of diseases classified elsewhere; B96.4 Proteus (mirabilis) (morganii) as the cause of diseases classified elsewhere; Z86.718 Personal history of other venous thrombosis and embolism; Z79.4 Long term (current) use of insulin
CPT/HCPCS: 36415; 36569; 71045-TC-FY; 74176-TC; 77001-TC-FY; 80048; 80053; 82550; 82962; 83036; 83605; 83735; 84100; 84484; 85025; 85027; 85730; 86850; 86900; 86901; 87040; 87070; 87186; 87205; 88304-TC; 93005; 93010; 94760; 99284-25; C1751; G0480; J1644; J7030

== ENCOUNTER 2017-12-14 01:22 | Emergency (ER) | payer OTHER ==
[2017-12-14 01:53] VITALS: BP 133/54; PULSE 68; TEMP 99.1; BMI 28.3
--- NOTE | 2017-12-14 02:06 | PDOC ---
Attending Attestation - Resident Resident Name: Ghassan Herr - ED Attending Attestation I have performed the following: I have examined & evaluated the patient, The case was reviewed & discussed with the resident, I agree w/resident's findings & plan, Exceptions are as noted - HPI HPI: 12/14/17 02:05 [id number] F hx of htn, dm, afib on xerolto, sent from [facility] for evalution of hyperkalemia. Pt without othter complaints including, cp, sob, abd pain. pts exam is unreamrkble no acute distress will recheck her K will obtain EKG to r/o peaked t waves - Physicial Exam PE: 12/14/17 22:12 see above - Medical Decision Making pts K is wnl will dc back to [facility] Heart Score/ECG Review - ECG Impressions Comment:: 12/14/17 02:07 Twelve-lead EKG was performed and reviewed by me. There is normal sinus rhythm with a normal rate. Rate of 70 Normal axis QTc interval of 470 Nonspecific T-wave inversion in the lateral leads
--- NOTE | 2017-12-14 02:11 | PDOC ---
History of Present Illness - General Chief Complaint: Revisit, Lab Variance Stated Complaint: HYPERKALEMIA Time Seen by Provider: 12/14/17 01:45 History Source: Patient Exam Limitations: No Limitations - History of Present Illness Initial Comments: 12/14/17 02:06 This is a 71 y/o woman from [facility] with a significant past medical history of HTN, DM, Afib (on Xarelto). who was sent from [facility] because of high serum potassium. Patient denies chest pain, sob, palpitations, lightheadedness, dizziness, nausea, vomiting diarrhoea. Sr K on [facility] labs 7.2 Past History - Past Medical History Allergies/Adverse Reactions: Allergies Allergy/AdvReac Type Severity Reaction Status Date / Time latex Allergy Verified 12/14/17 01:44 shellfish derived Allergy Verified 12/14/17 01:44 Sulfa (Sulfonamide Allergy Verified 12/14/17 01:44 Antibiotics) [Sulfa(Sulfonamide Antibiotics)] Home Medications: Ambulatory Orders Acetaminophen [Tylenol] 650 mg PO Q6H PRN 12/26/14 Atenolol [Tenormin -] 25 mg PO DAILY 12/26/14 Enalapril Maleate [Vasotec] 2.5 mg PO DAILY 12/26/14 Levothyroxine [Synthroid -] 50 mcg PO DAILY 12/26/14 Ranitidine HCl [Zantac] 150 mg PO BID 12/26/14 Ferrous Sulfate [Feosol] 325 mg PO BID ud 12/27/14 Atorvastatin Ca [Lipitor] 80 mg PO HS 09/24/17 Fenofibric Acid (Choline) [Trilipix] 135 mg PO DAILY 09/24/17 Magnesium Hydroxide [Milk of Magnesia] 400 mg PO DAILY PRN 09/24/17 Multivitamin [One Daily] 1 each PO DAILY 09/24/17 Sodium Phosphate/Na Biphos [Fleet Adult Rectal Enema -] 133 ml RC DAILY PRN Vit A/Vitamin D3/E/Aloe V/Zinc [Periguard Ointment] 100 gm TP TID 09/24/17 Apixaban [Eliquis] 5 mg PO BID #90 tablet 09/30/17 Amox-Tr/K Cl [Augmentin 500-125mg Tablet -] 1 tab PO BID@0800,1730 14 Days #28 tablet 11/21/17 Ertapenem Sodium [Invanz -] 1 gm IVPB DAILY 8 Days #8 vial 11/21/17 Insulin (Levemir) [Levemir Vial] 15 units SQ BID@0700,2200 units 11/21/17 Insulin Sliding Scale [Novolog Vial Sliding Scale -] 1 vial SQ ACHS units 11/21 Picc Line Flush [Picc Line Flush -] 8 ml IVPUSH PRN PRN ml 11/21/17 Anemia: Yes Asthma: No Cancer: No Cardiac Disorders: Yes (A-fib) COPD: No CHF: No Dementia: Yes Diabetes: Yes GI Disorders: Yes (GERD) Disorders: Yes (UTIs) HTN: Yes Hypercholesterolemia: Yes Psychiatric Problems: Yes (Depression) Thyroid Disease: Yes (Hypothyroid) - Surgical History Abdominal Surgery: Yes (umbilical hernia repair) Orthopedic Surgery: (RIGHT FEMORAL HEMIARTHROPLASTY) - Immunization History Immunization Up to Date: Yes - Suicide/Smoking/Psychosocial Hx Smoking Status: No Smoking History: Unknown if ever smoked Have you smoked in the past 12 months: No Number of Cigarettes Smoked Daily: 0 Information on smoking cessation initiated: No Hx Alcohol Use: No Drug/Substance Use Hx: No Substance Use Type: Alcohol Hx Substance Use Treatment: No Review of Systems - Review of Systems Constitutional: No: Chills, Fever HEENTM: No: Eye Pain, Blurred Vision, Tearing Respiratory: No: Cough, SOB with Exertion, SOB at Rest, Stridor, Wheezing Cardiac (ROS): No: Chest Pain, Edema, Irregular Heart Rate, Lightheadedness, Palpitations, Syncope, Chest Tightness : No: Burning, Dysuria, Discharge, Frequency, Flank Pain Neurological: No: Headache, Numbness *Physical Exam - Vital Signs Last Vital Signs Temp Pulse Resp BP Pulse Ox 99.1 F 68 20 133/54 100 12/14/17 01:44 12/14/17 01:44 12/14/17 01:44 12/14/17 01:44 12/14/17 01:44 - Physical Exam General Appearance: Yes: Appropriately Dressed HEENT: positive: EOMI Neck: positive: Supple Respiratory/Chest: positive: Lungs Clear, Normal Breath Sounds. negative: Chest Tender, Respiratory Distress, Accessory Muscle Use Cardiovascular: positive: Regular Rhythm, Regular Rate, S1, S2. 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 who was sent from [facility] because of high serum potassium. Patient denies chest pain, sob, palpitations, lightheadedness, dizziness, nausea, vomiting diarrhoea. sr k in rgency 7.5 ekg: nsr, no st depression or elevation, no tall T wave, qrs not prolonged, pr interval normal, qtc 470 we will cmp to check K 12/14/17 03:10 potassium [address] saldaña we will transfer patient back to [facility]. *DC/Admit/Observation/Transfer Diagnosis at time of Disposition: Alteration in lab values - Discharge Dispostion Disposition: [facility] Condition at time of disposition: Stable Decision to Admit order: No - Referrals Referrals: Shanae Brooks MD [Primary Care Provider] - - Patient Instructions - Post Discharge Activity
[2017-12-14 02:37] LABS: BASO % 1.3 % (0-2.0); EOS % 3.8 % (0-4.5); HEMATOCRIT 27.9 % (32.4-45.2); HEMOGLOBIN 9.1 GM/dL (10.7-15.3); LYMPH % 32.4 % (8-40); MCH 31.2 pg (25.7-33.7); MCHC 32.7 g/dl (32.0-36.0); MEAN CELL VOLUME 95.2 fl (80-96); MEAN PLT VOLUME 8.3 fl (7.5-11.1); MONO % 9.9 % (3.8-10.2); NEUT % 52.6 % (42.8-82.8); PLATELET COUNT 419 K/MM3 (134-434); RBC 2.93 M/mm3 (3.60-5.2); RDW 14.9 % (11.6-15.6); WHITE BLOOD COUNT 8.2 K/mm3 (4.0-10.0)
[2017-12-14 03:00] LABS: ALBUMIN 2.9 g/dl (3.4-5.0); ANION GAP 7 MMOL/L (8-16); BILIRUBIN,TOTAL 0.3 mg/dL (0.2-1.0); BLOOD UREA NITROGEN 38 mg/dL (7-18); CALCIUM 9.2 mg/dL (8.5-10.1); CHLORIDE 108 mmol/L (98-107); CO2 26 mmol/L (21-32); CREATININE 1.5 mg/dL (0.55-1.3); GLUCOSE,RANDOM 289 mg/dL (74-106); POTASSIUM 4.5 mmol/L (3.5-5.1); SGOT/AST 21 U/L (15-37); SGPT/ALT 16 U/L (13-61); SODIUM 141 mmol/L (136-145); TOT PROT 7.2 g/dl (6.4-8.2)
[2017-12-14 03:01] LABS: ALK PHOS 43 U/L (45-117)
--- NOTE | 2017-12-14 21:16 | EKG ---
Test Reason : Blood Pressure : / mmHG Vent. Rate : 070 BPM Atrial Rate : 070 BPM P-R Int : 132 ms QRS Dur : 094 ms QT Int : 436 ms P-R-T Axes : 030 003 136 degrees QTc Int : 470 ms NORMAL SINUS RHYTHM PROLONGED QT ABNORMAL ECG WHEN COMPARED WITH ECG OF 13-NOV-2017 08:52, NONSPECIFIC T WAVE ABNORMALITY HAS REPLACED INVERTED T WAVES IN INFERIOR LEADS T WAVE INVERSION LESS EVIDENT IN ANTEROLATERAL LEADS Confirmed by MIMI BUSCH MD ([id number]) on 12/14/2017 9:16:20 PM Referred By: Confirmed By:MIMI BUSCH MD
== END 2017-12-14 04:40 ==
LOC: JER 01:22
DX: R79.9 Abnormal finding of blood chemistry, unspecified (principal); I10 Essential (primary) hypertension; E11.9 Type 2 diabetes mellitus without complications; I48.91 Unspecified atrial fibrillation; Z79.01 Long term (current) use of anticoagulants; E78.00 Pure hypercholesterolemia, unspecified; F03.90 Unspecified dementia, unspecified severity, without behavioral disturbance, psychotic disturbance, mood disturbance, and anxiety
CPT/HCPCS: 36415; 80053; 85025; 93005; 93010; 99281-25

== ENCOUNTER 2018-03-06 17:09 | Inpatient (IN) | payer OTHER ==
--- NOTE | 2018-03-06 17:41 | PDOC ---
History of Present Illness - General Chief Complaint: Blood Sugar Problem Stated Complaint: BP ISSUE Time Seen by Provider: 03/06/18 17:24 - History of Present Illness Initial Comments: The patient is a 72F w/ a history of T2DM, HTN, hypothyroidism who presents from [facility] for evaluation for high blood glucose, reportedly >500. On presentation the patient denies any symptoms at this time or prior to presentation. She denies recent fevers/chills, MEEKS, vision changes, chest pain, SOB, abdominal pain, N/V/C/D 03/06/18 18:05 Past History - Past Medical History Allergies/Adverse Reactions: Allergies Allergy/AdvReac Type Severity Reaction Status Date / Time latex Allergy Verified 03/06/18 18:10 shellfish derived Allergy Verified 03/06/18 18:10 Sulfa (Sulfonamide Allergy Verified 03/06/18 18:10 Antibiotics) [Sulfa(Sulfonamide Antibiotics)] Home Medications: Ambulatory Orders Atenolol [Tenormin -] 25 mg PO DAILY 12/26/14 Levothyroxine [Synthroid -] 50 mcg PO DAILY 12/26/14 Ferrous Sulfate [Feosol] 325 mg PO BID ud 12/27/14 Fenofibric Acid (Choline) [Trilipix] 135 mg PO DAILY 09/24/17 Sodium Phosphate/Na Biphos [Fleet Adult Rectal Enema -] 133 ml RC DAILY PRN Vit A/Vitamin D3/E/Aloe V/Zinc [Periguard Ointment] 100 gm TP TID 09/24/17 Apixaban [Eliquis] 5 mg PO BID #90 tablet 09/30/17 Insulin Glargine,Hum.rec.anlog [Basaglar Kwikpen U-100] 18 unit SQ BID 03/06/18 Insulin Lispro [Humalog] 0 unit SQ ASDIR 03/06/18 Mirtazapine [Remeron Soltab -] 15 mg PO HS 03/06/18 Sennosides [Senna] 2 tab PO HS 03/06/18 Zinc Oxide 20% Topical Oint 1 applic .ROUTE DAILY 03/06/18 Anemia: Yes Asthma: No Cancer: No Cardiac Disorders: Yes (A-fib) COPD: No CHF: No Dementia: Yes Diabetes: Yes GI Disorders: Yes (GERD) Disorders: Yes (UTIs) HTN: Yes Hypercholesterolemia: Yes Psychiatric Problems: Yes (Depression) Thyroid Disease: Yes (Hypothyroid) - Surgical History Abdominal Surgery: Yes (umbilical hernia repair) Orthopedic Surgery: (RIGHT FEMORAL HEMIARTHROPLASTY) - Immunization History Immunization Up to Date: Yes - Suicide/Smoking/Psychosocial Hx Smoking Status: No Smoking History: Unknown if ever smoked Have you smoked in the past 12 months: No Number of Cigarettes Smoked Daily: 0 Hx Alcohol Use: No Drug/Substance Use Hx: No Substance Use Type: Alcohol Hx Substance Use Treatment: No Review of Systems - Review of Systems Able to Perform ROS?: Yes Comments:: GENERAL/CONSTITUTIONAL: No fever or chills. No weakness HEAD, EYES, EARS, NOSE AND THROAT: No change in vision. No ear pain or discharge. No sore throat CARDIOVASCULAR: No chest pain or shortness of breath RESPIRATORY: Denies cough, hemoptysis GASTROINTESTINAL: No nausea, vomiting, diarrhea or constipation GENITOURINARY: No dysuria, frequency, or change in urination MUSCULOSKELETAL: No joint or muscle swelling or pain. No neck or back pain SKIN: No rash NEUROLOGIC: No headache, vertigo, loss of consciousness, or change in strength/ sensation ENDOCRINE: No increased thirst. No abnormal weight change HEMATOLOGIC/LYMPHATIC: No anemia, easy bleeding, or history of blood clots ALLERGIC/IMMUNOLOGIC: No hives or skin allergy 03/06/18 17:35 Is the patient limited Luxembourgish proficient: No *Physical Exam - Vital Signs Vital Signs Temp Pulse Resp BP Pulse Ox 98.4 F 48 L 19 126/49 L 100 03/07/18 05:00 03/07/18 05:00 03/07/18 06:31 03/07/18 05:00 03/07/18 06:31 - Physical Exam Comments: GENERAL: Awake, oriented x1, in no acute distress HEAD: No signs of trauma, normocephalic, atraumatic EYES: PERRLA, EOMI, sclera anicteric, conjunctiva clear ENT: Hearing grossly normal, nares patent, oropharynx clear without exudates LUNGS: No distress, speaks full sentences, clear to auscultation bilaterally HEART: Bradycardic rate with regular rhythm, normal S1 and S2, no murmurs appreciated, peripheral pulses normal and equal bilaterally ABDOMEN: Soft, nontender, normoactive bowel sounds. No guarding, no rebound EXTREMITIES : Normal inspection, Normal range of motion, no edema. No clubbing or cyanosis NEUROLOGICAL: Cranial nerves II through XII grossly intact. Normal speech, normal gait, no focal sensorimotor deficits SKIN: Warm, Dry, normal turgor, no rashes or lesions noted 03/06/18 17:36 ED Treatment Course - LABORATORY CBC & Chemistry Diagram: 03/06/18 18:20 03/06/18 18:20 Medical Decision Making - Medical Decision Making The patient 72F w/ a history of T2DM who presents from home 2/2 reports of hyperglycemia by her home health nurse ED Course BGM, CMP, CBC, coags, T/S, UA, UCx, lactate, blood Cx ECG CXR 03/06/18 17:37 BGM 300s ECG w/ evidence of ischemia, R-sided ECG w/ ST elevation 03/06/18 18:06 No leukocytosis Mild anemia, Hgb 10.1 03/06/18 18:56 Sepsis v NSTEMI Plan to admit patient I have transferred care of the patient to Dr. Cain and discussed the clinical presentation, work-up and ED course thus far. 03/06/18 19:12 *DC/Admit/Observation/Transfer Diagnosis at time of Disposition: Hyperglycemia, Demand ischemia, NSTEMI (non-ST elevated myocardial infarction) UTI (urinary tract infection) Qualifiers: Urinary tract infection type: site unspecified Hematuria presence: with hematuria Qualified Code(s): N39.0 - Urinary tract infection, site not specified - Discharge Dispostion Condition at time of disposition: Fair Decision to Admit order: Yes - Referrals - Patient Instructions - Post Discharge Activity
--- NOTE | 2018-03-06 18:04 | PDOC ---
Attending Attestation - Resident Resident Name: Charles Varma - ED Attending Attestation I have performed the following: I have examined & evaluated the patient, The case was reviewed & discussed with the resident, I agree w/resident's findings & plan, Exceptions are as noted - HPI HPI: 03/06/18 17:59 72 yo F wit h/o DM HTN HLD prior dvt, hypothyroid, at residential here for high sugars over 400. pt denies current chest pain or sob. no f/c no nausea. no change to medications that she is aware of. no urinary complaints. no diarrhea. . no h/o mi. currently on eliquis. 03/06/18 18:02 - Physicial Exam PE: 03/06/18 18:00 awake alert lungs clear bilaterally heart reg bradycardia. no mrg abd soft nt nd. ext wwp no edema. no calf tenderness. nuero alert oriented x 2. skin warm and dry. - Medical Decision Making 03/06/18 18:01 differential mi, infection such as uti or pna, dehdyration dka, hyperosmolar hyperglycemia. . plan labs cardiac. ekg cxr iv hydration . will require admission for glucose control. initial ekg with deep st depression v1 - v3, I AVL, III AVF. right sided leads performed, no st elevation. Heart Score/ECG Review #1 General ECG Interpretation: Sinus Rhythm, Normal Rate, Normal Intervals Compared to previous ECG there are: Other (st depression V1 - V3, deep t wave inversion, TWI V4 - V6, I, AVL, II AVF.)
[2018-03-06 18:10] VITALS: BMI 26.4
[2018-03-06 18:42] LABS: HEMATOCRIT 30.5 % (32.4-45.2); HEMOGLOBIN 10.1 GM/dL (10.7-15.3); MCH 30.8 pg (25.7-33.7); MCHC 33.1 g/dl (32.0-36.0); MEAN CELL VOLUME 93.2 fl (80-96); PLATELET COUNT 453 K/MM3 (134-434); RBC 3.28 M/mm3 (3.60-5.2); RDW 15.4 % (11.6-15.6); WHITE BLOOD COUNT 6.6 K/mm3 (4.0-10.0)
[2018-03-06 18:58] LABS: VENOUS PC02 45.4 mmHg (38-52); VENOUS PH 7.33 (7.32-7.42); VENOUS PO2 22.9 mmHg (28-48)
[2018-03-06] MEDS ORDERED: SODIUM CHLORIDE 0.9% 1000 ML INFUS.BAG IV ONE (19:00)
[2018-03-06] MEDS ORDERED: PIPERACILLIN/TAZOB 3.375 GM 3.375 GM in DEXTROSE 5%-WATER - 50 ML IVPB ONE (19:00)
[2018-03-06] MEDS ORDERED: PIPERACILLIN/TAZOB 3.375 GM 3.375 GM/50 ML BAG IVPB ONE (19:03)
[2018-03-06 19:05] LABS: URINE APPEARANCE TURBID; URINE BILIRUBIN NEGATIVE (<2.0 mg/dL); URINE COLOR YELLOW; URINE GLUCOSE (UA) 2+ (NEGATIVE); URINE KETONE NEGATIVE (NEGATIVE); URINE LEUK ESTERASE 2+ (NEGATIVE); URINE NITRITE POSITIVE (NEGATIVE); URINE PROTEIN 3+ (NEGATIVE); URINE UROBILINOGEN NEGATIVE mg/dL (0.2-1.0)
[2018-03-06 19:22] LABS: INR 1.39 (0.83-1.09); PROTHROMBIN TIME (PATIENT) 16.4 SEC (9.7-13.0)
[2018-03-06 19:29] LABS: EPI CELLS FEW /HPF (FEW); URINE MUCUS RARE
[2018-03-06 19:40] LABS: ALBUMIN 3.3 g/dl (3.4-5.0); ALK PHOS 52 U/L (45-117); ANION GAP 9 MMOL/L (8-16); BILIRUBIN,TOTAL 0.2 mg/dL (0.2-1); BLOOD UREA NITROGEN 41 mg/dL (7-18); CALCIUM 9.8 mg/dL (8.5-10.1); CHLORIDE 106 mmol/L (98-107); CO2 23 mmol/L (21-32); CREATININE 1.6 mg/dL (0.55-1.3); POTASSIUM 4.9 mmol/L (3.5-5.1); SGOT/AST 16 U/L (15-37); SGPT/ALT 17 U/L (13-61); SODIUM 138 mmol/L (136-145)
[2018-03-06 19:46] LABS: GLUCOSE,RANDOM 355 mg/dL (74-106)
--- NOTE | 2018-03-06 19:48 | PDOC ---
*Physical Exam - Vital Signs Last Vital Signs Temp Pulse Resp BP Pulse Ox 98.0 F 49 L 16 145/64 100 03/06/18 17:09 03/06/18 17:09 03/06/18 17:09 03/06/18 17:09 03/06/18 17:09 <Margie Cheung - Last Filed: 03/06/18 19:57> - Vital Signs Last Vital Signs Temp Pulse Resp BP Pulse Ox 98.0 F 49 L 16 145/64 100 03/06/18 17:09 03/06/18 17:09 03/06/18 17:09 03/06/18 17:09 03/06/18 17:09 <Chace Cain - Last Filed: 03/06/18 22:31> ED Treatment Course - LABORATORY CBC & Chemistry Diagram: 03/06/18 18:20 03/06/18 18:20 - ADDITIONAL ORDERS Additional order review: Laboratory Results 03/06/18 03/06/18 03/06/18 18:30 18:20 18:20 PT with INR 16.40 H INR 1.39 H VBG pH POC VBG pCO2 POC VBG pO2 Mixed VBG HCO3 Sodium Potassium Chloride Carbon Dioxide Anion Gap BUN Creatinine Creat Clearance w eGFR Random Glucose Lactic Acid 2.0 Calcium Total Bilirubin AST ALT Alkaline Phosphatase Creatine Kinase Troponin I Total Protein Albumin Urine Color Yellow Urine Appearance Turbid Urine pH 6.0 Ur Specific [place] 1.014 Urine Protein 3+ H Urine Glucose (UA) 2+ H Urine Ketones Negative Urine Blood 1+ H Urine Nitrite Positive Urine Bilirubin Negative Urine Urobilinogen Negative Ur Leukocyte Esterase 2+ H Urine WBC (Auto) 1282 Urine RBC (Auto) None Ur Epithelial Cells Few Urine Mucus Rare Acetone, Qual 03/06/18 03/06/18 03/06/18 18:20 18:20 18:20 PT with INR INR VBG pH 7.33 POC VBG pCO2 45.4 POC VBG pO2 22.9 L Mixed VBG HCO3 23.5 Sodium 138 Potassium 4.9 Chloride 106 Carbon Dioxide 23 Anion Gap 9 BUN 41 H Creatinine 1.6 H Creat Clearance w eGFR 31.78 Random Glucose 355 H* Lactic Acid Calcium 9.8 Total Bilirubin 0.2 AST 16 ALT 17 Alkaline Phosphatase 52 Creatine Kinase 43 Troponin I 0.32 H Total Protein 8.0 Albumin 3.3 L Urine Color Urine Appearance Urine pH Ur Specific [place] Urine Protein Urine Glucose (UA) Urine Ketones Urine Blood Urine Nitrite Urine Bilirubin Urine Urobilinogen Ur Leukocyte Esterase Urine WBC (Auto) Urine RBC (Auto) Ur Epithelial Cells Urine Mucus Acetone, Qual Negative L 03/06/18 18:20 RBC 3.28 L MCV 93.2 MCHC 33.1 RDW 15.4 MPV 9.0 - Medications Given in the ED: ED Medications Discontinued Medications Generic Name Dose Route Start Last Admin Trade Name Freq PRN Reason Stop Dose Admin Piperacillin Sod/Tazobactam 50 mls @ 100 mls/hr 03/06/18 19:00 03/06/18 19:10 Sod 3.375 gm/ Dextrose IVPB 03/06/18 19:29 100 mls/hr ONCE ONE Administration Protocol Sodium Chloride 1,000 ml 03/06/18 19:00 03/06/18 19:10 Normal Saline - IV 03/06/18 19:01 1,000 ml ONCE ONE Administration <Margie Cheung - Last Filed: 03/06/18 19:57> - LABORATORY CBC & Chemistry Diagram: 03/06/18 18:20 03/06/18 18:20 - ADDITIONAL ORDERS Additional order review: Laboratory Results 03/06/18 18:20 VBG pH 7.33 POC VBG pCO2 45.4 POC VBG pO2 22.9 L Mixed VBG HCO3 23.5 03/06/18 18:20 RBC 3.28 L MCV 93.2 MCHC 33.1 RDW 15.4 MPV 9.0 - Medications Given in the ED: ED Medications Discontinued Medications Generic Name Dose Route Start Last Admin Trade Name Freq PRN Reason Stop Dose Admin Sodium Chloride 1,000 ml 03/06/18 19:00 03/06/18 19:10 Normal Saline - IV 03/06/18 19:01 1,000 ml ONCE ONE Administration <Chace Cain - Last Filed: 03/06/18 22:31> Medical Decision Making - Medical Decision Making Paged Dr. Caballero (covering for Dr. Garcia) for Cardiology consult 03/06/18 19:57 <Margie Cheung - Last Filed: 03/06/18 19:57> - Medical Decision Making 03/06/18 19:[address] Christine UTI sepsis vs NSTEMI waiting on trop 03/06/18 21:07 Spoke with michellei in the transfer center Spoke with [facility]iology Attending (Dr. Winston?) who states they have limited beds and usually only take unstable pts. Cards Fellow 03/06/18 21:[address] Espinosa who is another [facility] Cardiology Attending who denies transfer and states patient is stable with no change in 2 trops (from .32 to .31 ) and a normal CK of 43. Discussed potential ED-ED transfer as well but states pt is stable to treat medically in our facility and can be transferred at a later time if things change. <Chace Cain - Last Filed: 03/06/18 22:31> *DC/Admit/Observation/Transfer <Margie Cheung - Last Filed: 03/06/18 19:57> - Discharge Dispostion Decision to Admit order: Yes <Chace Cain - Last Filed: 03/06/18 22:31> Diagnosis at time of Disposition: Hyperglycemia, Demand ischemia, NSTEMI (non-ST elevated myocardial infarction) UTI (urinary tract infection) Qualifiers: Urinary tract infection type: site unspecified Hematuria presence: with hematuria Qualified Code(s): N39.0 - Urinary tract infection, site not specified ; R31.9 - Hematuria, unspecified - Discharge Dispostion Condition at time of disposition: Fair - Referrals Referrals: Shanae Brooks MD [Primary Care Provider] - - Patient Instructions - Post Discharge Activity
--- NOTE | 2018-03-06 20:20 | PDOC ---
*Physical Exam - Vital Signs Last Vital Signs Temp Pulse Resp BP Pulse Ox 98.0 F 49 L 17 136/57 L 100 03/06/18 17:09 03/06/18 20:14 03/06/18 20:14 03/06/18 20:14 03/06/18 20:14 ED Treatment Course - LABORATORY CBC & Chemistry Diagram: 03/06/18 18:20 03/06/18 18:20 - ADDITIONAL ORDERS Additional order review: Laboratory Results 03/06/18 03/06/18 03/06/18 18:30 18:20 18:20 PT with INR 16.40 H INR 1.39 H VBG pH POC VBG pCO2 POC VBG pO2 Mixed VBG HCO3 Sodium Potassium Chloride Carbon Dioxide Anion Gap BUN Creatinine Creat Clearance w eGFR Random Glucose Lactic Acid 2.0 Calcium Total Bilirubin AST ALT Alkaline Phosphatase Creatine Kinase Troponin I Total Protein Albumin Urine Color Yellow Urine Appearance Turbid Urine pH 6.0 Ur Specific [place] 1.014 Urine Protein 3+ H Urine Glucose (UA) 2+ H Urine Ketones Negative Urine Blood 1+ H Urine Nitrite Positive Urine Bilirubin Negative Urine Urobilinogen Negative Ur Leukocyte Esterase 2+ H Urine WBC (Auto) 1282 Urine RBC (Auto) None Ur Epithelial Cells Few Urine Mucus Rare Acetone, Qual 03/06/18 03/06/18 03/06/18 18:20 18:20 18:20 PT with INR INR VBG pH 7.33 POC VBG pCO2 45.4 POC VBG pO2 22.9 L Mixed VBG HCO3 23.5 Sodium 138 Potassium 4.9 Chloride 106 Carbon Dioxide 23 Anion Gap 9 BUN 41 H Creatinine 1.6 H Creat Clearance w eGFR 31.78 Random Glucose 355 H* Lactic Acid Calcium 9.8 Total Bilirubin 0.2 AST 16 ALT 17 Alkaline Phosphatase 52 Creatine Kinase 43 Troponin I 0.32 H Total Protein 8.0 Albumin 3.3 L Urine Color Urine Appearance Urine pH Ur Specific [place] Urine Protein Urine Glucose (UA) Urine Ketones Urine Blood Urine Nitrite Urine Bilirubin Urine Urobilinogen Ur Leukocyte Esterase Urine WBC (Auto) Urine RBC (Auto) Ur Epithelial Cells Urine Mucus Acetone, Qual Negative L 03/06/18 18:20 RBC 3.28 L MCV 93.2 MCHC 33.1 RDW 15.4 MPV 9.0 - Medications Given in the ED: ED Medications Discontinued Medications Generic Name Dose Route Start Last Admin Trade Name Freq PRN Reason Stop Dose Admin Piperacillin Sod/Tazobactam 50 mls @ 100 mls/hr 03/06/18 19:00 03/06/18 19:10 Sod 3.375 gm/ Dextrose IVPB 03/06/18 19:29 100 mls/hr ONCE ONE Administration Protocol Sodium Chloride 1,000 ml 03/06/18 19:00 03/06/18 19:10 Normal Saline - IV 03/06/18 19:01 1,000 ml ONCE ONE Administration Medical Decision Making - Medical Decision Making 03/06/18 20:18 Patient was signed out to me. Pt has + troponin of 0.32. She has had persistently elevated troponins in the past years 0.2-0.37 Pt has a normal cardiac echocardiogram done within this past year, in that she has normal EF and normal LV wall motion. Her EKG is unchanged from 09/15 and . Pt's CK is 43 today. Mo CKMB, as the CK is under threshhold. 03/06/18 20:21 Resident contacted cardiology entry level receptionist, who is wondering if pt should be transferred. Pt will have a repeat CK and troponin, so that we can trend it's path. 03/06/18 20:32 Pt has no chest pain. She has no suprapubic tenderness and she has no fever. She is awake and answering questions, though she has a hx of dementia. Pt appears comfortable. HR [id number]. Repeat bedside FS at this time is 300. I will order NSS 500 ml bolus. 03/07/18 06:04 Pt will be admitted here, as her trop is stable and [facility]ology agrees. *DC/Admit/Observation/Transfer Diagnosis at time of Disposition: Hyperglycemia, UTI (urinary tract infection), Demand ischemia, NSTEMI (non-ST elevated myocardial infarction) - Discharge Dispostion Condition at time of disposition: Fair - Referrals - Patient Instructions - Post Discharge Activity
[2018-03-06] MEDS ORDERED: SODIUM CHLORIDE 0.9% 500 ML INFUS.BAG IV ONE (20:33)
[2018-03-06] MEDS ORDERED: ASPIRIN 325 MG TABLET PO ONE (20:48)
[2018-03-06] MEDS ORDERED: HEPARIN NA (PORCINE) 5,000 UNITS/ML 1ML VIAL IVPUSH PRN ×2 (20:52)
[2018-03-06] MEDS ORDERED: ASPIRIN 325 MG TABLET ONE (20:52)
[2018-03-06] MEDS ORDERED: HEPARIN INFUSION - 25,000 UNITS/500 ML INFUS.BAG IVPB ONE (21:02)
[2018-03-06] MEDS ORDERED: HEPARIN NA (PORCINE) 5,000 UNITS/ML 1ML VIAL ONE (21:02)
[2018-03-06] MEDS: HEPARIN - 25,000 UNIT in SODIUM CHLORIDE 495 ML IV SCH (21:08)
--- NOTE | 2018-03-06 22:54 | HP ---
Admitting History and Physical - Primary Care Physician PCP: Shanae Brooks - Admission Chief Complaint: Hyperglycemia History of Present Illness: This is a 72 y/o woman from [facility] with a PMHx of Dementia, HTN, HLD, CAD, Cardiac Cath, ID. Who presents to the ED for elevated blood sugars. Patient has Dementia hx and is unable to provide HPI. In the ED patient's EKG was noted to have ST depressions in AVL, III, AVF, V1-V3, Troponin 0.32. Patient was started on Heparin Drip and given Asa for NSTEMI. Cardiology aware, per ED resident. Patient denies CP, palpitations or SOB. 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 History of Recent Travel: No Home Medications - Allergies Allergies/Adverse Reactions: Allergies Allergy/AdvReac Type Severity Reaction Status Date / Time latex Allergy Verified 03/06/18 18:10 shellfish derived Allergy Verified 03/06/18 18:10 Sulfa (Sulfonamide Allergy Verified 03/06/18 18:10 Antibiotics) [Sulfa(Sulfonamide Antibiotics)] - Home Medications Home Medications: Ambulatory Orders Atenolol [Tenormin -] 25 mg PO DAILY 12/26/14 Levothyroxine [Synthroid -] 50 mcg PO DAILY 12/26/14 Ferrous Sulfate [Feosol] 325 mg PO BID ud 12/27/14 Fenofibric Acid (Choline) [Trilipix] 135 mg PO DAILY 09/24/17 Sodium Phosphate/Na Biphos [Fleet Adult Rectal Enema -] 133 ml RC DAILY PRN Vit A/Vitamin D3/E/Aloe V/Zinc [Periguard Ointment] 100 gm TP TID 09/24/17 Apixaban [Eliquis] 5 mg PO BID #90 tablet 09/30/17 Insulin Glargine,Hum.rec.anlog [Basaglar Eliseikpen U-100] 18 unit SQ BID 03/06/18 Insulin Lispro [Humalog] 0 unit SQ ASDIR 03/06/18 Mirtazapine [Remeron Soltab -] 15 mg PO HS 03/06/18 Sennosides [Senna] 2 tab PO HS 03/06/18 Zinc Oxide 20% Topical Oint 1 applic .ROUTE DAILY 03/06/18 Family Disease History - Family Disease History Family Disease History: Diabetes: Brother, Other: Sister Review of Systems Unable to obtain ROS, reason: Dementia Physical Examination Vital Signs: Vital Signs Temperature 98.0 F 03/06/18 17:09 Pulse Rate 49 L 03/06/18 20:14 Respiratory Rate 17 03/06/18 20:14 Blood Pressure 136/57 L 03/06/18 20:14 O2 Sat by Pulse Oximetry (%) 100 03/06/18 20:14 Constitutional: Yes: No Distress, Calm Eyes: Yes: WNL, Conjunctiva Clear, EOM Intact, PERRL HENT: Yes: WNL, Atraumatic, Normocephalic Neck: Yes: WNL, Supple, Trachea Midline Cardiovascular: Yes: Bradycardia, S1, S2 Respiratory: Yes: Regular, CTA Bilaterally, On Nasal O2 Gastrointestinal: Yes: WNL, Normal Bowel Sounds, Soft Renal/: Yes: Incontinence Breast(s): Yes: WNL Musculoskeletal: Yes: WNL Extremities: Yes: WNL Edema: No Peripheral Pulses WNL: Yes Neurological: Yes: Alert, Confusion, Cran Nerves II-XII Intact ...Motor Strength: WNL Psychiatric: Yes: Alert Labs: CBC, BMP 03/06/18 18:20 03/06/18 18:20 Laboratory Results - last 24 hr 03/06/18 03/06/18 03/06/18 18:00 18:20 18:20 WBC 6.6 RBC 3.28 L Hgb 10.1 L Hct 30.5 L MCV 93.2 MCH 30.8 MCHC 33.1 RDW 15.4 Plt Count 453 H MPV 9.0 PT with INR INR PTT (Actin FS) VBG pH POC VBG pCO2 POC VBG pO2 Mixed VBG HCO3 Sodium 138 Potassium 4.9 Chloride 106 Carbon Dioxide 23 Anion Gap 9 BUN 41 H Creatinine 1.6 H Creat Clearance w eGFR 31.78 POC Glucometer [phone] Random Glucose 355 H* Lactic Acid Calcium 9.8 Total Bilirubin 0.2 AST 16 ALT 17 Alkaline Phosphatase 52 Creatine Kinase 43 Troponin I 0.32 H Total Protein 8.0 Albumin 3.3 L Urine Color Urine Appearance Urine pH Ur Specific [place] Urine Protein Urine Glucose (UA) Urine Ketones Urine Blood Urine Nitrite Urine Bilirubin Urine Urobilinogen Ur Leukocyte Esterase Urine WBC (Auto) Urine RBC (Auto) Ur Epithelial Cells Urine Mucus Acetone, Qual Blood Type Antibody Screen 03/06/18 03/06/18 03/06/18 18:20 18:20 18:20 WBC RBC Hgb Hct MCV MCH MCHC RDW Plt Count MPV PT with INR INR PTT (Actin FS) VBG pH 7.33 POC VBG pCO2 45.4 POC VBG pO2 22.9 L Mixed VBG HCO3 23.5 Sodium Potassium Chloride Carbon Dioxide Anion Gap BUN Creatinine Creat Clearance w eGFR POC Glucometer Random Glucose Lactic Acid 2.0 Calcium Total Bilirubin AST ALT Alkaline Phosphatase Creatine Kinase Troponin I Total Protein Albumin Urine Color Urine Appearance Urine pH Ur Specific [place] Urine Protein Urine Glucose (UA) Urine Ketones Urine Blood Urine Nitrite Urine Bilirubin Urine Urobilinogen Ur Leukocyte Esterase Urine WBC (Auto) Urine RBC (Auto) Ur Epithelial Cells Urine Mucus Acetone, Qual Negative L Blood Type Antibody Screen 03/06/18 03/06/18 03/06/18 18:20 18:20 18:30 WBC RBC Hgb Hct MCV MCH MCHC RDW Plt Count MPV PT with INR 16.40 H INR 1.39 H PTT (Actin FS) VBG pH POC VBG pCO2 POC VBG pO2 Mixed VBG HCO3 Sodium Potassium Chloride Carbon Dioxide Anion Gap BUN Creatinine Creat Clearance w eGFR POC Glucometer Random Glucose Lactic Acid Calcium Total Bilirubin AST ALT Alkaline Phosphatase Creatine Kinase Troponin I Total Protein Albumin Urine Color Yellow Urine Appearance Turbid Urine pH 6.0 Ur Specific [place] 1.014 Urine Protein 3+ H Urine Glucose (UA) 2+ H Urine Ketones Negative Urine Blood 1+ H Urine Nitrite Positive Urine Bilirubin Negative Urine Urobilinogen Negative Ur Leukocyte Esterase 2+ H Urine WBC (Auto) 1282 Urine RBC (Auto) None Ur Epithelial Cells Few Urine Mucus Rare Acetone, Qual Blood Type B POSITIVE Antibody Screen Negative 03/06/18 03/06/18 03/06/18 18:39 20:28 20:34 WBC RBC Hgb Hct MCV MCH MCHC RDW Plt Count MPV PT with INR INR PTT (Actin FS) 29.8 VBG pH POC VBG pCO2 POC VBG pO2 Mixed VBG HCO3 Sodium Potassium Chloride Carbon Dioxide Anion Gap BUN Creatinine Creat Clearance w eGFR POC Glucometer [phone] Random Glucose Lactic Acid Calcium Total Bilirubin AST ALT Alkaline Phosphatase Creatine Kinase Troponin I 0.31 H Total Protein Albumin Urine Color Urine Appearance Urine pH Ur Specific [place] Urine Protein Urine Glucose (UA) Urine Ketones Urine Blood Urine Nitrite Urine Bilirubin Urine Urobilinogen Ur Leukocyte Esterase Urine WBC (Auto) Urine RBC (Auto) Ur Epithelial Cells Urine Mucus Acetone, Qual Blood Type Antibody Screen 03/07/18 03:09 WBC RBC Hgb Hct MCV MCH MCHC RDW Plt Count MPV PT with INR INR PTT (Actin FS) VBG pH POC VBG pCO2 POC VBG pO2 Mixed VBG HCO3 Sodium Potassium Chloride Carbon Dioxide Anion Gap BUN Creatinine Creat Clearance w eGFR POC Glucometer Random Glucose Lactic Acid Calcium Total Bilirubin AST ALT Alkaline Phosphatase Creatine Kinase Troponin I 0.30 H Total Protein Albumin Urine Color Urine Appearance Urine pH Ur Specific [place] Urine Protein Urine Glucose (UA) Urine Ketones Urine Blood Urine Nitrite Urine Bilirubin Urine Urobilinogen Ur Leukocyte Esterase Urine WBC (Auto) Urine RBC (Auto) Ur Epithelial Cells Urine Mucus Acetone, Qual Blood Type Antibody Screen Intake & Output 03/04/18 03/05/18 03/06/18 03/07/18 23:59 23:59 23:59 23:59 Intake Total 32 Balance 32 Weight 63.503 kg Current Medications Generic Name Dose Route Start Last Admin Trade Name Freq PRN Reason Stop Dose Admin Aspirin 81 mg 03/07/18 10:00 Asa - PO DAILY [facility] Atenolol 25 mg 03/07/18 10:00 Tenormin - PO DAILY [facility] Heparin Sodium (Porcine) 1,000 unit 03/06/18 20:52 Heparin - IVPUSH PRN PRN Heparin Heparin Sodium (Porcine) 5,000 unit 03/06/18 20:52 Heparin - IVPUSH PRN PRN Heparin Heparin Sodium (Porcine) 25, 500 mls @ 16 mls/hr 03/06/18 21:00 03/06/18 21: 08 000 unit/ Sodium Chloride IV 800 unit/hr TITR LENI 16 mls/hr Administration Protocol 800 UNIT/HR Levothyroxine Sodium 50 mcg 03/07/18 07:00 Synthroid - PO DAILY@0700 LENI Mirtazapine 15 mg 03/07/18 22:00 Remeron - PO HS [facility] Imaging - Results Chest X-ray: Image Reviewed EKG: Image Reviewed Problem List - Problems (1) NSTEMI (non-ST elevated myocardial infarction) Code(s): I21.4 - NON-ST ELEVATION (NSTEMI) MYOCARDIAL INFARCTION (2) Hyperglycemia Code(s): R73.9 - HYPERGLYCEMIA, UNSPECIFIED (3) UTI (urinary tract infection) Code(s): N39.0 - URINARY TRACT INFECTION, SITE NOT SPECIFIED Qualifiers: Urinary tract infection type: site unspecified Hematuria presence: with hematuria Qualified Code(s): N39.0 - Urinary tract infection, site not specified; R31.9 - Hematuria, unspecified (4) CKD (chronic kidney disease) stage 3, GFR 30-59 ml/min Code(s): N18.3 - CHRONIC KIDNEY DISEASE, STAGE 3 (MODERATE) (5) Chronic diastolic CHF (congestive heart failure) Code(s): I50.32 - CHRONIC DIASTOLIC (CONGESTIVE) HEART FAILURE (6) Dementia Code(s): F03.90 - UNSPECIFIED DEMENTIA WITHOUT BEHAVIORAL DISTURBANCE (7) Diabetes Code(s): E11.9 - TYPE 2 DIABETES MELLITUS WITHOUT COMPLICATIONS (8) HTN (hypertension) Code(s): I10 - ESSENTIAL (PRIMARY) HYPERTENSION (9) Hyperlipidemia Code(s): E78.5 - HYPERLIPIDEMIA, UNSPECIFIED Assessment/Plan This is a 72 y/o woman from [facility] with a PMHx of: Dementia, HTN, HLD, CAD, ID, Cardiac Cath, DM. Admitted to Telemetry for NSTEMI, Hyperglycemia, UTI for further evaluation of their emergent condition. Plan: 1. NSTEMI Admit to Telemetry Cardiac Monitoring Serial Enzymes EKG reviewed Chest Xray image reviewed Echo done 08/2017- LVSF nl, EF nl, trace to mild TR, rSVP nl, mild to mod MR Appreciate Cardiology consult Heparin Drip Protocol started in ED, will continue PTT series Asa given in ED, will continue Will hold BB secondary to bradycardia 2. UTI UA- +nitrate, +1 blood, +2 leukoctyte esterase, 1282 WBCs Urine Culture- pending hx klebseilla pneumoniae, proteus mirabilis in urine, sensitivities reviewed Zosyn given in ED, will continue renal dosing Appreciate ID consult 3. Hyperglycemia Likely secondary to UTI Novolog given in ED BGMs ISS when diet resumed HgbA1c in am 4. HTN controlled Monitor BP Holding BB secondary to bradycardia 5. Afib EKG reviewed Hold Eliquis secondary to Heparin Drip for NSTEMI Monitor PTTs Monitor CBC, BMP 6. Dementia Continue home med 7. HLD Continue home med FEN Replete lytes prn NPO DVT ppx SCDs Continue Heparin Drip Code Status: Full Code, JORDAN, Ms Sprague (daughter) [phone] Dispo: Requires Inpatient Care Visit type - Emergency Visit Emergency Visit: Yes ED Registration Date: 03/06/18 Care time: The patient presented to the Emergency Department on the above date and was hospitalized for further evaluation of their emergent condition. - New Patient This patient is new to me today: Yes Date on this admission: 03/06/18 - Critical Care Critical Care patient: No
[2018-03-06] MEDS ORDERED: HEPARIN SOD,PORK IN 0.45% NACL 25,000 UNIT/500 ML INFUS.BAG IVPB SCH (23:45)
[2018-03-07 08:11] LABS: BASO % 1.1 % (0-2.0); EOS % 6.2 % (0-4.5); HEMATOCRIT 26.1 % (32.4-45.2); HEMOGLOBIN 8.2 GM/dL (10.7-15.3); LYMPH % 38.9 % (8-40); MCH 29.7 pg (25.7-33.7); MCHC 31.5 g/dl (32.0-36.0); MEAN CELL VOLUME 94.4 fl (80-96); MEAN PLT VOLUME 9.1 fl (7.5-11.1); NEUT % 44.8 % (42.8-82.8); PLATELET COUNT 409 K/MM3 (134-434); RBC 2.76 M/mm3 (3.60-5.2); RDW 15.5 % (11.6-15.6)
[2018-03-07] MEDS ORDERED: PIPERACILLIN/TAZOB 2.25 GM 2.25 GM in DEXTROSE 5%-WATER - 50 ML IVPB ONE (09:00)
[2018-03-07 09:54] LABS: ANION GAP 10 MMOL/L (8-16); BLOOD UREA NITROGEN 33 mg/dL (7-18); CHLORIDE 112 mmol/L (98-107); CHOLESTEROL 228 mg/dL (50-200); CO2 21 mmol/L (21-32); CREATININE 1.4 mg/dL (0.55-1.3); GLUCOSE,RANDOM 103 mg/dL (74-106); HDL CHOLESTEROL 39 mg/dL (40-60); MAGNESIUM 2.3 mg/dL (1.8-2.4); PHOSPHOROUS 3.1 mg/dL (2.5-4.9); POTASSIUM 4.3 mmol/L (3.5-5.1); SODIUM 143 mmol/L (136-145); TRIGLYCERIDES 197 mg/dL (0-150)
[2018-03-07] MEDS: LEVOTHYROXINE NA 50 MCG TABLET (FP) PO SCH (09:58)
[2018-03-07] MEDS: ASPIRIN 81 MG CHEWABLE TABLETS PO SCH (09:58)
[2018-03-07] MEDS ORDERED: ATENOLOL 25 MG TABLET (FP) PO SCH (10:00)
[2018-03-07] MEDS ORDERED: PIPERACILLIN/TAZOBACTAM 2.25 GM VIAL IVPB ONE (10:05)
[2018-03-07] MEDS ORDERED: DEXTROSE 5%-WATER - 50 ML IVPB ONE (10:05)
--- NOTE | 2018-03-07 11:05 | PN ---
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 (short form) - Note 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: Events noted Pt sitting up in bed-- knows the place, not the date, year denies chest pain , SOB , abd pain pt is bedbound, currently at baseline mentation Vital Signs - 24 hr 03/06/18 03/06/18 03/07/18 17:09 20:14 03:23 Temperature 98.0 F 98.5 F Pulse Rate 49 L Pulse Rate [ 49 L 68 Apical] Respiratory 16 17 19 Rate Blood Pressure 145/64 Blood Pressure 136/57 L 127/64 [Right Arm] O2 Sat by Pulse 100 100 100 Oximetry (%) 03/07/18 03/07/18 03/07/18 05:00 06:31 09:00 Temperature 98.4 F 98.7 F Pulse Rate 48 L 47 L Pulse Rate [ Apical] Respiratory 19 19 20 Rate Blood Pressure 126/49 L 113/47 L Blood Pressure [Right Arm] O2 Sat by Pulse 100 100 95 Oximetry (%) Current Medications Generic Name Dose Route Start Last Admin Trade Name Freq PRN Reason Stop Dose Admin Aspirin 81 mg 03/07/18 10:00 03/07/18 09:58 Asa - PO 81 mg DAILY LENI Administration Heparin Sodium (Porcine) 1,000 unit 03/06/18 20:52 Heparin - IVPUSH PRN PRN Heparin Heparin Sodium (Porcine) 5,000 unit 03/06/18 20:52 Heparin - IVPUSH PRN PRN Heparin Heparin Sodium (Porcine) 25, 500 mls @ 16 mls/hr 03/06/18 21:00 03/07/18 09: 00 000 unit/ Sodium Chloride IV 700 unit/hr TITR LENI 14 mls/hr Titration Protocol 800 UNIT/HR Piperacillin Sod/Tazobactam 50 mls @ 100 mls/hr 03/07/18 15:00 Sod 2.25 gm/ Dextrose IVPB Q6H-IV LENI Protocol Levothyroxine Sodium 50 mcg 03/07/18 07:00 03/07/18 09:58 Synthroid - PO 50 mcg DAILY@0700 LENI Administration Mirtazapine 15 mg 03/07/18 22:00 Remeron - PO HS LENI Laboratory Results - last 24 hr 03/06/18 03/06/18 03/06/18 18:00 18:20 18:20 WBC 6.6 RBC 3.28 L Hgb 10.1 L Hct 30.5 L MCV 93.2 MCH 30.8 MCHC 33.1 RDW 15.4 Plt Count 453 H MPV 9.0 Absolute Neuts (auto) Neutrophils % Lymphocytes % Monocytes % Eosinophils % Basophils % Nucleated RBC % PT with INR INR PTT (Actin FS) VBG pH POC VBG pCO2 POC VBG pO2 Mixed VBG HCO3 Sodium 138 Potassium 4.9 Chloride 106 Carbon Dioxide 23 Anion Gap 9 BUN 41 H Creatinine 1.6 H Creat Clearance w eGFR 31.78 POC Glucometer [phone] Random Glucose 355 H* Hemoglobin A1c % Lactic Acid Calcium 9.8 Phosphorus Magnesium Total Bilirubin 0.2 AST 16 ALT 17 Alkaline Phosphatase 52 Creatine Kinase 43 Troponin I 0.32 H Total Protein 8.0 Albumin 3.3 L Triglycerides Cholesterol Total LDL Cholesterol HDL Cholesterol Urine Color Urine Appearance Urine pH Ur Specific [place] Urine Protein Urine Glucose (UA) Urine Ketones Urine Blood Urine Nitrite Urine Bilirubin Urine Urobilinogen Ur Leukocyte Esterase Urine WBC (Auto) Urine RBC (Auto) Ur Epithelial Cells Urine Mucus Acetone, Qual Blood Type Antibody Screen 03/06/18 03/06/18 03/06/18 18:20 18:20 18:20 WBC RBC Hgb Hct MCV MCH MCHC RDW Plt Count MPV Absolute Neuts (auto) Neutrophils % Lymphocytes % Monocytes % Eosinophils % Basophils % Nucleated RBC % PT with INR INR PTT (Actin FS) VBG pH 7.33 POC VBG pCO2 45.4 POC VBG pO2 22.9 L Mixed VBG HCO3 23.5 Sodium Potassium Chloride Carbon Dioxide Anion Gap BUN Creatinine Creat Clearance w eGFR POC Glucometer Random Glucose Hemoglobin A1c % Lactic Acid 2.0 Calcium Phosphorus Magnesium Total Bilirubin AST ALT Alkaline Phosphatase Creatine Kinase Troponin I Total Protein Albumin Triglycerides Cholesterol Total LDL Cholesterol HDL Cholesterol Urine Color Urine Appearance Urine pH Ur Specific [place] Urine Protein Urine Glucose (UA) Urine Ketones Urine Blood Urine Nitrite Urine Bilirubin Urine Urobilinogen Ur Leukocyte Esterase Urine WBC (Auto) Urine RBC (Auto) Ur Epithelial Cells Urine Mucus Acetone, Qual Negative L Blood Type Antibody Screen 03/06/18 03/06/18 03/06/18 18:20 18:20 18:30 WBC RBC Hgb Hct MCV MCH MCHC RDW Plt Count MPV Absolute Neuts (auto) Neutrophils % Lymphocytes % Monocytes % Eosinophils % Basophils % Nucleated RBC % PT with INR 16.40 H INR 1.39 H PTT (Actin FS) VBG pH POC VBG pCO2 POC VBG pO2 Mixed VBG HCO3 Sodium Potassium Chloride Carbon Dioxide Anion Gap BUN Creatinine Creat Clearance w eGFR POC Glucometer Random Glucose Hemoglobin A1c % Lactic Acid Calcium Phosphorus Magnesium Total Bilirubin AST ALT Alkaline Phosphatase Creatine Kinase Troponin I Total Protein Albumin Triglycerides Cholesterol Total LDL Cholesterol HDL Cholesterol Urine Color Yellow Urine Appearance Turbid Urine pH 6.0 Ur Specific [place] 1.014 Urine Protein 3+ H Urine Glucose (UA) 2+ H Urine Ketones Negative Urine Blood 1+ H Urine Nitrite Positive Urine Bilirubin Negative Urine Urobilinogen Negative Ur Leukocyte Esterase 2+ H Urine WBC (Auto) 1282 Urine RBC (Auto) None Ur Epithelial Cells Few Urine Mucus Rare Acetone, Qual Blood Type B POSITIVE Antibody Screen Negative 03/06/18 03/06/18 03/06/18 18:39 20:28 20:34 WBC RBC Hgb Hct MCV MCH MCHC RDW Plt Count MPV Absolute Neuts (auto) Neutrophils % Lymphocytes % Monocytes % Eosinophils % Basophils % Nucleated RBC % PT with INR INR PTT (Actin FS) 29.8 VBG pH POC VBG pCO2 POC VBG pO2 Mixed VBG HCO3 Sodium Potassium Chloride Carbon Dioxide Anion Gap BUN Creatinine Creat Clearance w eGFR POC Glucometer [phone] Random Glucose Hemoglobin A1c % Lactic Acid Calcium Phosphorus Magnesium Total Bilirubin AST ALT Alkaline Phosphatase Creatine Kinase Troponin I 0.31 H Total Protein Albumin Triglycerides Cholesterol Total LDL Cholesterol HDL Cholesterol Urine Color Urine Appearance Urine pH Ur Specific [place] Urine Protein Urine Glucose (UA) Urine Ketones Urine Blood Urine Nitrite Urine Bilirubin Urine Urobilinogen Ur Leukocyte Esterase Urine WBC (Auto) Urine RBC (Auto) Ur Epithelial Cells Urine Mucus Acetone, Qual Blood Type Antibody Screen 03/07/18 03/07/18 03/07/18 03:09 03:09 05:40 WBC 8.0 RBC 2.76 L Hgb 8.2 L Hct 26.1 L MCV 94.4 MCH 29.7 MCHC 31.5 L RDW 15.5 Plt Count 409 MPV 9.1 Absolute Neuts (auto) 3.6 Neutrophils % 44.8 Lymphocytes % 38.9 D Monocytes % 9.0 Eosinophils % 6.2 H Basophils % 1.1 Nucleated RBC % 0 PT with INR INR PTT (Actin FS) 96.3 H VBG pH POC VBG pCO2 POC VBG pO2 Mixed VBG HCO3 Sodium Potassium Chloride Carbon Dioxide Anion Gap BUN Creatinine Creat Clearance w eGFR POC Glucometer Random Glucose Hemoglobin A1c % Lactic Acid Calcium Phosphorus Magnesium Total Bilirubin AST ALT Alkaline Phosphatase Creatine Kinase Troponin I 0.30 H Total Protein Albumin Triglycerides Cholesterol Total LDL Cholesterol HDL Cholesterol Urine Color Urine Appearance Urine pH Ur Specific [place] Urine Protein Urine Glucose (UA) Urine Ketones Urine Blood Urine Nitrite Urine Bilirubin Urine Urobilinogen Ur Leukocyte Esterase Urine WBC (Auto) Urine RBC (Auto) Ur Epithelial Cells Urine Mucus Acetone, Qual Blood Type Antibody Screen 03/07/18 03/07/18 03/07/18 05:40 05:40 06:43 WBC RBC Hgb Hct MCV MCH MCHC RDW Plt Count MPV Absolute Neuts (auto) Neutrophils % Lymphocytes % Monocytes % Eosinophils % Basophils % Nucleated RBC % PT with INR INR PTT (Actin FS) VBG pH POC VBG pCO2 POC VBG pO2 Mixed VBG HCO3 Sodium 143 Potassium 4.3 Chloride 112 H Carbon Dioxide 21 Anion Gap 10 BUN 33 H Creatinine 1.4 H Creat Clearance w eGFR 37.07 POC Glucometer 122 Random Glucose 103 Hemoglobin A1c % 8.4 H Lactic Acid Calcium 9.0 Phosphorus 3.1 Magnesium 2.3 Total Bilirubin AST ALT Alkaline Phosphatase Creatine Kinase Troponin I Total Protein Albumin Triglycerides 197 H Cholesterol 228 H Total LDL Cholesterol 151 H HDL Cholesterol 39 L Urine Color Urine Appearance Urine pH Ur Specific [place] Urine Protein Urine Glucose (UA) Urine Ketones Urine Blood Urine Nitrite Urine Bilirubin Urine Urobilinogen Ur Leukocyte Esterase Urine WBC (Auto) Urine RBC (Auto) Ur Epithelial Cells Urine Mucus Acetone, Qual Blood Type Antibody Screen 03/07/18 11:30 WBC RBC Hgb Hct MCV MCH MCHC RDW Plt Count MPV Absolute Neuts (auto) Neutrophils % Lymphocytes % Monocytes % Eosinophils % Basophils % Nucleated RBC % PT with INR INR PTT (Actin FS) VBG pH POC VBG pCO2 POC VBG pO2 Mixed VBG HCO3 Sodium Potassium Chloride Carbon Dioxide Anion Gap BUN Creatinine Creat Clearance w eGFR POC Glucometer 167 Random Glucose Hemoglobin A1c % Lactic Acid Calcium Phosphorus Magnesium Total Bilirubin AST ALT Alkaline Phosphatase Creatine Kinase Troponin I Total Protein Albumin Triglycerides Cholesterol Total LDL Cholesterol HDL Cholesterol Urine Color Urine Appearance Urine pH Ur Specific [place] Urine Protein Urine Glucose (UA) Urine Ketones Urine Blood Urine Nitrite Urine Bilirubin Urine Urobilinogen Ur Leukocyte Esterase Urine WBC (Auto) Urine RBC (Auto) Ur Epithelial Cells Urine Mucus Acetone, Qual Blood Type Antibody Screen S1 S2 irregular Lungs no ronchi or rales Abd- soft, NT No edema PLAN on heparin gtt-- hold off Eliquis on iv antibiotics- cultures pending troponins trending down-- likely elevated due to demand ischemia Blood sugar control - adjust insulin spoke with Cardiology Problem List - Problems (1) Demand ischemia Code(s): I24.8 - OTHER FORMS OF ACUTE ISCHEMIC HEART DISEASE (2) Hyperglycemia Code(s): R73.9 - HYPERGLYCEMIA, UNSPECIFIED (3) NSTEMI (non-ST elevated myocardial infarction) Code(s): I21.4 - NON-ST ELEVATION (NSTEMI) MYOCARDIAL INFARCTION (4) UTI (urinary tract infection) Code(s): N39.0 - URINARY TRACT INFECTION, SITE NOT SPECIFIED Qualifiers: Urinary tract infection type: site unspecified Hematuria presence: with hematuria Qualified Code(s): N39.0 - Urinary tract infection, site not specified; R31.9 - Hematuria, unspecified (5) Afib Code(s): I48.91 - UNSPECIFIED ATRIAL FIBRILLATION Qualifiers: Atrial fibrillation type: chronic Qualified Code(s): I48.2 - Chronic atrial fibrillation (6) Dementia Code(s): F03.90 - UNSPECIFIED DEMENTIA WITHOUT BEHAVIORAL DISTURBANCE (7) Diabetes Code(s): E11.9 - TYPE 2 DIABETES MELLITUS WITHOUT COMPLICATIONS (8) HTN (hypertension) Code(s): I10 - ESSENTIAL (PRIMARY) HYPERTENSION (9) IDDM (insulin dependent diabetes mellitus) Code(s): E11.9 - TYPE 2 DIABETES MELLITUS WITHOUT COMPLICATIONS; Z79.4 - LONGTERM (CURRENT) USE OF INSULIN
--- NOTE | 2018-03-07 12:46 | CON.CARD ---
Cardiology Consult (text) - Consultation Consultation Note: Reason for consult: elevated troponin HPI: 72 year old female with history of hypertension, hyperlipidemia, dementia [facility] with elevated blood sugars found to have NSTEMI with elevated troponin (pk 0.3), ECG NSR, LVH TWI in V3-V6. Of note, patient is poor historian and could not accurately answer my questions. Denies any chest pain, palpitations, shortness of breath, orthopnea, PND or MAX. 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 History of Recent Travel: No Home Medications - Allergies Allergies/Adverse Reactions: Allergies Allergy/AdvReac Type Severity Reaction Status Date / Time latex Allergy Verified 03/06/18 18:10 shellfish derived Allergy Verified 03/06/18 18:10 Sulfa (Sulfonamide Allergy Verified 03/06/18 18:10 Antibiotics) [Sulfa(Sulfonamide Antibiotics)] - Home Medications Home Medications: Ambulatory Orders Atenolol [Tenormin -] 25 mg PO DAILY 12/26/14 Levothyroxine [Synthroid -] 50 mcg PO DAILY 12/26/14 Ferrous Sulfate [Feosol] 325 mg PO BID ud 12/27/14 Fenofibric Acid (Choline) [Trilipix] 135 mg PO DAILY 09/24/17 Sodium Phosphate/Na Biphos [Fleet Adult Rectal Enema -] 133 ml RC DAILY PRN Vit A/Vitamin D3/E/Aloe V/Zinc [Periguard Ointment] 100 gm TP TID 09/24/17 Apixaban [Eliquis] 5 mg PO BID #90 tablet 09/30/17 Insulin Glargine,Hum.rec.anlog [Basaglar Kwikpen U-100] 18 unit SQ BID 03/06/18 Insulin Lispro [Humalog] 0 unit SQ ASDIR 03/06/18 Mirtazapine [Remeron Soltab -] 15 mg PO HS 03/06/18 Sennosides [Senna] 2 tab PO HS 03/06/18 Zinc Oxide 20% Topical Oint 1 applic .ROUTE DAILY 03/06/18 Family Disease History - Family Disease History Family Disease History: Diabetes: Brother, Other: Sister Review of Systems Unable to obtain ROS, reason: Dementia Physical Examination Vital Signs: Vital Signs 03/07/18 03/07/18 03/07/18 05:00 06:31 09:00 Temperature 98.4 F 98.7 F Pulse Rate 48 L 47 L Respiratory 19 19 20 Rate Blood Pressure 126/49 L 113/47 L O2 Sat by Pulse 100 100 95 Oximetry (%) Gen: elderly female sitting upright in NAD HEENT: NC/AT. OP Clear Cardiac: S1/S2 no murmurs Pulm: clear breath sounds bilaterally Ext: WWP. No edema Labs: Abnormal Lab Results 03/06/18 03/06/18 03/06/18 18:20 18:20 18:20 RBC 3.28 L Hgb 10.1 L Hct 30.5 L MCHC Plt Count 453 H Eosinophils % PT with INR INR PTT (Actin FS) POC VBG pO2 Chloride BUN 41 H Creatinine 1.6 H Random Glucose 355 H* Hemoglobin A1c % Troponin I 0.32 H Albumin 3.3 L Triglycerides Cholesterol Total LDL Cholesterol HDL Cholesterol Urine Protein Urine Glucose (UA) Urine Blood Ur Leukocyte Esterase Acetone, Qual Negative L 03/06/18 03/06/18 03/06/18 18:20 18:20 18:30 RBC Hgb Hct MCHC Plt Count Eosinophils % PT with INR 16.40 H INR 1.39 H PTT (Actin FS) POC VBG pO2 22.9 L Chloride BUN Creatinine Random Glucose Hemoglobin A1c % Troponin I Albumin Triglycerides Cholesterol Total LDL Cholesterol HDL Cholesterol Urine Protein 3+ H Urine Glucose (UA) 2+ H Urine Blood 1+ H Ur Leukocyte Esterase 2+ H Acetone, Qual 03/06/18 03/07/18 03/07/18 20:34 03:09 03:09 RBC Hgb Hct MCHC Plt Count Eosinophils % PT with INR INR PTT (Actin FS) 96.3 H POC VBG pO2 Chloride BUN Creatinine Random Glucose Hemoglobin A1c % Troponin I 0.31 H 0.30 H Albumin Triglycerides Cholesterol Total LDL Cholesterol HDL Cholesterol Urine Protein Urine Glucose (UA) Urine Blood Ur Leukocyte Esterase Acetone, Qual 03/07/18 03/07/18 03/07/18 05:40 05:40 05:40 RBC 2.76 L Hgb 8.2 L Hct 26.1 L MCHC 31.5 L Plt Count Eosinophils % 6.2 H PT with INR INR PTT (Actin FS) POC VBG pO2 Chloride 112 H BUN 33 H Creatinine 1.4 H Random Glucose Hemoglobin A1c % 8.4 H Troponin I Albumin Triglycerides 197 H Cholesterol 228 H Total LDL Cholesterol 151 H HDL Cholesterol 39 L Urine Protein Urine Glucose (UA) Urine Blood Ur Leukocyte Esterase Acetone, Qual Active Medications Aspirin (Asa -) 81 mg PO DAILY [facility] Last Admin: 03/07/18 09:58 Dose: 81 mg Heparin Sodium (Porcine) (Heparin -) 1,000 unit IVPUSH PRN PRN PRN Reason: Heparin Heparin Sodium (Porcine) (Heparin -) 5,000 unit IVPUSH PRN PRN PRN Reason: Heparin Heparin Sodium (Porcine) 25, (000 unit/ Sodium Chloride) 500 mls @ 16 mls/hr IV TITR [facility]; Protocol Last Titration: 03/07/18 09:00 Dose: 700 unit/hr, 14 mls/hr Piperacillin Sod/Tazobactam (Sod 2.25 gm/ Dextrose) 50 mls @ 100 mls/hr IVPB Q6H-IV [facility]; Protocol Levothyroxine Sodium (Synthroid -) 50 mcg PO DAILY@0700 [facility] Last Admin: 03/07/18 09:58 Dose: 50 mcg Mirtazapine (Remeron -) 15 mg PO HS [facility] A/P: 72 year old female with history of hypertension, hyperlipidemia, dementia [facility] with elevated blood sugars found to have NSTEMI with elevated troponin (pk 0.3), ECG NSR, LVH and TWI V3-V6. #NSTEMI Etiology: likely demand in setting of hyperglycermia and UTI Workup: --ECG NST, LVH, TWI in V3-V6 (no significant change from prior ECGs) --troponin 0.3, 0.3, continue to trend --Echocardiogram 09/15: normal LV function, trace to mild TR, rSVP nl, mild to mod MR --lipid panel Treatment: --continue heparin gtt 48 hours, aspirin 81mg if no contraindications --please discuss goals of care with family and schedule for nuclear stress test on Friday if in line with goals of care --hold off on beta-evangelina therapy as patient is bradycardic, SBP 110s-120s no additional therapy indicated at this time Merritt Chowdhury MD
[2018-03-07] MEDS ORDERED: PIPERACILLIN/TAZOB 2.25 GM 2.25 GM in DEXTROSE 5%-WATER - 50 ML IVPB SCH (15:00)
[2018-03-07 16:45] LABS: HEMATOCRIT 25.8 % (32.4-45.2); HEMOGLOBIN 8.8 GM/dL (10.7-15.3); MCH 31.4 pg (25.7-33.7); MEAN CELL VOLUME 92.2 fl (80-96); MEAN PLT VOLUME 8.1 fl (7.5-11.1); PLATELET COUNT 374 K/MM3 (134-434); RDW 15.6 % (11.6-15.6); WHITE BLOOD COUNT 6.8 K/mm3 (4.0-10.0)
[2018-03-07] MEDS: INSULIN SLIDING SCALE (NOVOLOG) 1 VIAL SQ SCH (18:42)
--- NOTE | 2018-03-07 21:23 | EKG ---
Test Reason : Blood Pressure : / mmHG Vent. Rate : 046 BPM Atrial Rate : 046 BPM P-R Int : 164 ms QRS Dur : 092 ms QT Int : 526 ms P-R-T Axes : 063 -02 178 degrees QTc Int : 460 ms SINUS BRADYCARDIA SEPTAL INFARCT , AGE UNDETERMINED LATERAL INFARCT , AGE UNDETERMINED ABNORMAL ECG WHEN COMPARED WITH ECG OF 06-MAR-2018 17:52, SEPTAL INFARCT IS NOW PRESENT LATERAL INFARCT IS NOW PRESENT ST NO LONGER DEPRESSED IN ANTERIOR LEADS T WAVE INVERSION LESS EVIDENT IN ANTEROLATERAL LEADS Confirmed by DAYANNA MARCH, JIN ([id number]) on 03/07/2018 9:22:38 PM Referred By: Confirmed By:JIN ALAN MD
--- NOTE | 2018-03-07 21:23 | EKG ---
Test Reason : Blood Pressure : / mmHG Vent. Rate : 046 BPM Atrial Rate : 046 BPM P-R Int : 156 ms QRS Dur : 090 ms QT Int : 530 ms P-R-T Axes : 023 001 178 degrees QTc Int : 463 ms POOR DATA QUALITY, INTERPRETATION MAY BE ADVERSELY AFFECTED SINUS BRADYCARDIA PROLONGED QT ABNORMAL ECG WHEN COMPARED WITH ECG OF 14-DEC-2017 01:58, VENT. RATE HAS DECREASED BY 24 BPM T WAVE INVERSION NOW EVIDENT IN INFERIOR LEADS T WAVE INVERSION MORE EVIDENT IN ANTERIOR LEADS Confirmed by DAYANNA MARCH, JIN ([id number]) on 03/07/2018 9:23:23 PM Referred By: Confirmed By:JIN ALAN MD
[2018-03-07] MEDS: HEPARIN - 25,000 UNIT in SODIUM CHLORIDE 495 ML IV SCH (21:55)
[2018-03-07] MEDS ORDERED: PT OWN MED DRAWER 7, Y5N ONE (22:01)
[2018-03-07] MEDS: MIRTAZAPINE 15 MG TABLET (FP) PO SCH (22:04)
[2018-03-07] MEDS: FERROUS SO4 325 MG TABLET (FP) PO SCH (22:04)
[2018-03-07] MEDS: INSULIN (LEVEMIR) 100 UNITS/ML UNITS SQ SCH (22:09)
[2018-03-08] MEDS: INSULIN (LEVEMIR) 100 UNITS/ML UNITS SQ SCH ×2 (06:47→22:15)
[2018-03-08] MEDS: LEVOTHYROXINE NA 50 MCG TABLET (FP) PO SCH (06:48)
[2018-03-08] MEDS: INSULIN SLIDING SCALE (NOVOLOG) 1 VIAL SQ SCH ×3 (06:48→17:02)
[2018-03-08 07:53] LABS: HEMOGLOBIN 9.2 GM/dL (10.7-15.3); MCH 31.5 pg (25.7-33.7); MCHC 33.9 g/dl (32.0-36.0); MEAN CELL VOLUME 92.9 fl (80-96); MEAN PLT VOLUME 9.1 fl (7.5-11.1); PLATELET COUNT 374 K/MM3 (134-434); RBC 2.91 M/mm3 (3.60-5.2); RDW 15.7 % (11.6-15.6)
[2018-03-08 08:33] LABS: ALBUMIN 2.6 g/dl (3.4-5.0); ALK PHOS 41 U/L (45-117); ANION GAP 9 MMOL/L (8-16); BILIRUBIN,TOTAL 0.2 mg/dL (0.2-1); BLOOD UREA NITROGEN 25 mg/dL (7-18); CALCIUM 8.8 mg/dL (8.5-10.1); CHLORIDE 112 mmol/L (98-107); CO2 20 mmol/L (21-32); CREATININE 1.3 mg/dL (0.55-1.3); GLUCOSE,RANDOM 150 mg/dL (74-106); POTASSIUM 4.3 mmol/L (3.5-5.1); SGOT/AST 15 U/L (15-37); SGPT/ALT 13 U/L (13-61); SODIUM 141 mmol/L (136-145); TOT PROT 6.3 g/dl (6.4-8.2)
[2018-03-08] MEDS: ASPIRIN 81 MG CHEWABLE TABLETS PO SCH (09:02)
[2018-03-08] MEDS: FERROUS SO4 325 MG TABLET (FP) PO SCH ×2 (09:02→22:09)
--- NOTE | 2018-03-08 09:36 | PN ---
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 (short form) - Note 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: no complaints denies chest pain , SOB , abd pain pt is bedbound, currently at baseline mentation Vital Signs - 24 hr 03/07/18 03/07/18 03/08/18 17:30 21:00 01:40 Temperature 98.0 F 98.2 F 98.1 F Pulse Rate 52 L 55 L 52 L Respiratory 18 18 18 Rate Blood Pressure 100/49 L 99/42 L 136/57 L O2 Sat by Pulse 95 Oximetry (%) 03/08/18 03/08/18 03/08/18 05:00 08:43 09:00 Temperature 98 F 97.9 F Pulse Rate 50 L 47 L Respiratory 17 16 16 Rate Blood Pressure 113/43 L 134/41 L O2 Sat by Pulse 91 L Oximetry (%) 03/08/18 14:30 Temperature 98 F Pulse Rate 54 L Respiratory 18 Rate Blood Pressure 114/48 L O2 Sat by Pulse Oximetry (%) Current Medications Generic Name Dose Route Start Last Admin Trade Name Freq PRN Reason Stop Dose Admin Aspirin 81 mg 03/07/18 10:00 03/08/18 09:02 Asa - PO 81 mg DAILY [facility] Administration Ferrous Sulfate 325 mg 03/07/18 22:00 03/08/18 09:02 Feosol - PO 325 mg BID [facility] Administration Heparin Sodium (Porcine) 1,000 unit 03/06/18 20:52 Heparin - IVPUSH PRN PRN Heparin Heparin Sodium (Porcine) 5,000 unit 03/06/18 20:52 Heparin - IVPUSH PRN PRN Heparin Heparin Sodium (Porcine) 25, 500 mls @ 16 mls/hr 03/06/18 21:00 03/07/18 21: 55 000 unit/ Sodium Chloride IV 700 unit/hr TITR [facility] 14 mls/hr Administration Protocol 800 UNIT/HR Piperacillin Sod/Tazobactam 50 mls @ 100 mls/hr 03/07/18 15:00 Sod 2.25 gm/ Dextrose IVPB Q6H-IV [facility] Protocol Piperacillin Sod/Tazobactam 50 mls @ 100 mls/hr 03/08/18 16:33 Sod 2.25 gm/ Dextrose IVPB 03/08/18 17:02 ONCE ONE Protocol Insulin Aspart 1 vial 03/07/18 16:30 03/08/18 12:33 Novolog Vial Sliding Scale - SQ Not Given TIDAC [facility] Protocol Insulin Detemir 18 units 03/07/18 22:00 03/08/18 06:47 Levemir Vial SQ 18 units BID@0700,2200 [facility] Administration Levothyroxine Sodium 50 mcg 03/07/18 07:00 03/08/18 06:48 Synthroid - PO 50 mcg DAILY@0700 [facility] Administration Mirtazapine 15 mg 03/07/18 22:00 03/07/18 22:04 Remeron - PO 15 mg HS [facility] Administration Laboratory Results - last 24 hr 03/07/18 03/07/18 03/07/18 16:40 16:40 22:08 WBC 6.8 RBC 2.80 L Hgb 8.8 L Hct 25.8 L MCV 92.2 MCH 31.4 MCHC 34.0 RDW 15.6 Plt Count 374 MPV 8.1 D PTT (Actin FS) Sodium Potassium Chloride Carbon Dioxide Anion Gap BUN Creatinine Creat Clearance w eGFR POC Glucometer 309 381 Random Glucose Calcium Total Bilirubin AST ALT Alkaline Phosphatase Total Protein Albumin 03/08/18 03/08/18 03/08/18 05:30 05:30 05:30 WBC 7.0 RBC 2.91 L Hgb 9.2 L Hct 27.0 L MCV 92.9 MCH 31.5 MCHC 33.9 RDW 15.7 H Plt Count 374 MPV 9.1 D PTT (Actin FS) 57.3 H Sodium 141 Potassium 4.3 Chloride 112 H Carbon Dioxide 20 L Anion Gap 9 BUN 25 H Creatinine 1.3 Creat Clearance w eGFR 40.38 POC Glucometer Random Glucose 150 H Calcium 8.8 Total Bilirubin 0.2 AST 15 ALT 13 Alkaline Phosphatase 41 L Total Protein 6.3 L Albumin 2.6 L 03/08/18 03/08/18 05:31 12:32 WBC RBC Hgb Hct MCV MCH MCHC RDW Plt Count MPV PTT (Actin FS) Sodium Potassium Chloride Carbon Dioxide Anion Gap BUN Creatinine Creat Clearance w eGFR POC Glucometer 196 112 Random Glucose Calcium Total Bilirubin AST ALT Alkaline Phosphatase Total Protein Albumin S1 S2 irregular Lungs no ronchi or rales Abd- soft, NT No edema PLAN on heparin gtt-- hold off Eliquis on iv antibiotics- cultures noted ID eval for antibiotics for stress test tomorrow troponins trending down-- likely elevated due to demand ischemia Blood sugar control - adjust insulin spoke with Cardiology Problem List - Problems (1) Demand ischemia Code(s): I24.8 - OTHER FORMS OF ACUTE ISCHEMIC HEART DISEASE (2) Hyperglycemia Code(s): R73.9 - HYPERGLYCEMIA, UNSPECIFIED (3) NSTEMI (non-ST elevated myocardial infarction) Code(s): I21.4 - NON-ST ELEVATION (NSTEMI) MYOCARDIAL INFARCTION (4) UTI (urinary tract infection) Code(s): N39.0 - URINARY TRACT INFECTION, SITE NOT SPECIFIED Qualifiers: Urinary tract infection type: site unspecified Hematuria presence: with hematuria Qualified Code(s): N39.0 - Urinary tract infection, site not specified; R31.9 - Hematuria, unspecified (5) Afib Code(s): I48.91 - UNSPECIFIED ATRIAL FIBRILLATION Qualifiers: Atrial fibrillation type: chronic Qualified Code(s): I48.2 - Chronic atrial fibrillation (6) Dementia Code(s): F03.90 - UNSPECIFIED DEMENTIA WITHOUT BEHAVIORAL DISTURBANCE (7) Diabetes Code(s): E11.9 - TYPE 2 DIABETES MELLITUS WITHOUT COMPLICATIONS (8) HTN (hypertension) Code(s): I10 - ESSENTIAL (PRIMARY) HYPERTENSION (9) IDDM (insulin dependent diabetes mellitus) Code(s): E11.9 - TYPE 2 DIABETES MELLITUS WITHOUT COMPLICATIONS; Z79.4 - TOBACCO STRIPPER (CURRENT) USE OF INSULIN
--- NOTE | 2018-03-08 12:03 | PN ---
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 (short form) - Note 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: Subjective: --No acute overnight events Objective: Vital Signs 03/08/18 03/08/18 03/08/18 05:00 08:43 09:00 Temperature 98 F 97.9 F Pulse Rate 50 L 47 L Respiratory 17 16 16 Rate Blood Pressure 113/43 L 134/41 L O2 Sat by Pulse 91 L Oximetry (%) Gen: elderly female sitting upright in NAD Cardiac: S1/S2, 2/6 holosystolic murmur loudest at LSB Pulm: clear breath sounds bilaterally. no rales. Ext: WWP. No edema. Laboratory Results - last 24 hr 03/07/18 03/07/18 03/07/18 15:18 16:40 16:40 WBC 6.8 RBC 2.80 L Hgb 8.8 L Hct 25.8 L MCV 92.2 MCH 31.4 MCHC 34.0 RDW 15.6 Plt Count 374 MPV 8.1 D PTT (Actin FS) 65.7 H Sodium Potassium Chloride Carbon Dioxide Anion Gap BUN Creatinine Creat Clearance w eGFR POC Glucometer 309 Random Glucose Calcium Total Bilirubin AST ALT Alkaline Phosphatase Total Protein Albumin 03/07/18 03/08/18 03/08/18 22:08 05:30 05:30 WBC 7.0 RBC 2.91 L Hgb 9.2 L Hct 27.0 L MCV 92.9 MCH 31.5 MCHC 33.9 RDW 15.7 H Plt Count 374 MPV 9.1 D PTT (Actin FS) 57.3 H Sodium Potassium Chloride Carbon Dioxide Anion Gap BUN Creatinine Creat Clearance w eGFR POC Glucometer 381 Random Glucose Calcium Total Bilirubin AST ALT Alkaline Phosphatase Total Protein Albumin 03/08/18 03/08/18 05:30 05:31 WBC RBC Hgb Hct MCV MCH MCHC RDW Plt Count MPV PTT (Actin FS) Sodium 141 Potassium 4.3 Chloride 112 H Carbon Dioxide 20 L Anion Gap 9 BUN 25 H Creatinine 1.3 Creat Clearance w eGFR 40.38 POC Glucometer 196 Random Glucose 150 H Calcium 8.8 Total Bilirubin 0.2 AST 15 ALT 13 Alkaline Phosphatase 41 L Total Protein 6.3 L Albumin 2.6 L Active Medications Aspirin (Asa -) 81 mg PO DAILY [facility] Last Admin: 03/08/18 09:02 Dose: 81 mg Ferrous Sulfate (Feosol -) 325 mg PO BID [facility] Last Admin: 03/08/18 09:02 Dose: 325 mg Heparin Sodium (Porcine) (Heparin -) 1,000 unit IVPUSH PRN PRN PRN Reason: Heparin Heparin Sodium (Porcine) (Heparin -) 5,000 unit IVPUSH PRN PRN PRN Reason: Heparin Heparin Sodium (Porcine) 25, (000 unit/ Sodium Chloride) 500 mls @ 16 mls/hr IV TITR [facility]; Protocol Last Admin: 03/07/18 21:55 Dose: 700 unit/hr, 14 mls/hr Piperacillin Sod/Tazobactam (Sod 2.25 gm/ Dextrose) 50 mls @ 100 mls/hr IVPB Q6H-IV [facility]; Protocol Insulin Aspart (Novolog Vial Sliding Scale -) 1 vial SQ TIDAC [facility]; Protocol Last Admin: 03/08/18 06:48 Dose: 2 units Insulin Detemir (Levemir Vial) 18 units SQ BID@0700,2200 [facility] Last Admin: 03/08/18 06:47 Dose: 18 units Levothyroxine Sodium (Synthroid -) 50 mcg PO DAILY@0700 [facility] Last Admin: 03/08/18 06:48 Dose: 50 mcg Mirtazapine (Remeron -) 15 mg PO HS [facility] Last Admin: 03/07/18 22:04 Dose: 15 mg A/P: 72 year old female with history of hypertension, hyperlipidemia, dementia presents from sn[facility] with elevated blood sugars found to have NSTEMI with elevated troponin (pk 0.3), ECG NSR, LVH and TWI V3-V6. #NSTEMI Etiology: likely demand in setting of hyperglycermia and UTI Workup: --ECG NST, LVH, TWI in V3-V6 (no significant change from prior ECGs) --troponin 0.3, 0.3 --Echocardiogram 09/15: normal LV function, trace to mild TR, rSVP nl, mild to mod MR --lipid panel Treatment: --continue heparin gtt 48 hours, aspirin 81mg if no contraindications --please discuss goals of care with family and schedule for nuclear stress test on Friday if in line with goals of care --hold off on beta-evangelina therapy as patient remains bradycardic, SBP well controlled no additional therapy indicated at this time No significant change in plan from 03/07. Please keep NPO after midnight for potential nuclear stress test in the AM. Merritt Chowdhury MD
[2018-03-08] MEDS ORDERED: PIPERACILLIN/TAZOB 2.25 GM 2.25 GM in DEXTROSE 5%-WATER - 50 ML IVPB ONE (16:33)
[2018-03-08] MEDS ORDERED: DEXTROSE 5%-WATER - 50 ML IVPB ONE (17:53)
[2018-03-08] MEDS ORDERED: PIPERACILLIN/TAZOBACTAM 2.25 GM VIAL IVPB ONE (17:53)
[2018-03-08] MEDS: HEPARIN - 25,000 UNIT in SODIUM CHLORIDE 495 ML IV SCH (22:04)
[2018-03-08] MEDS: MIRTAZAPINE 15 MG TABLET (FP) PO SCH (22:09)
[2018-03-09] MEDS: INSULIN SLIDING SCALE (NOVOLOG) 1 VIAL SQ SCH ×3 (06:15→17:15)
[2018-03-09] MEDS: LEVOTHYROXINE NA 50 MCG TABLET (FP) PO SCH (06:16)
[2018-03-09] MEDS: INSULIN (LEVEMIR) 100 UNITS/ML UNITS SQ SCH ×2 (07:40→23:23)
[2018-03-09] MEDS: FERROUS SO4 325 MG TABLET (FP) PO SCH ×2 (10:31→23:22)
[2018-03-09] MEDS: ASPIRIN 81 MG CHEWABLE TABLETS PO SCH (10:31)
--- NOTE | 2018-03-09 10:46 | PN ---
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 (short form) - Note 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: ID Consult dictated UTI R/O sepsis secondary to UTI Uncontrolled DM R/O PR OBS Await c/s Empiric cefepime
[2018-03-09] MEDS ORDERED: CEFEPIME HCL/D5W 1 GM/50 ML BAG IVPB SCH (11:15)
--- NOTE | 2018-03-09 12:03 | ECHO ---
Name: MATT SMARTINE Exam:Adult Echocardiogram Study Date: 03/09/2018 09:48 AM Age: 72 yrs Reason For Study: NSTEMI Height: 61 in Weight: 140 lb BSA: 1.6 m2 MMode/2D Measurements & Calculations IVSd: 0.87 cm Ao root diam: 2.4 cm LVIDd: 4.7 cm LA dimension: 3.9 cm LVIDs: 3.6 cm LVPWd: 0.80 cm EDV(Teich): 104.6 ml TAPSE: 3.7 cm ESV(Teich): 54.4 ml Doppler Measurements & Calculations MV E max dwaine: 72.3 cm/sec MR max dwaine: 369.6 cm/sec MV A max dwaine: 92.2 cm/sec MR max P.6 mmHg MV E/A: 0.78 MV dec time: 0.50 sec TR max dwaine: 158.0 cm/sec Med Peak E' Dwaine: 2.8 cm/sec TR max P.0 mmHg Med E/e': 26.3 Lat Peak E' Dwaine: 2.0 cm/sec Lat E/e': 35.7 Procedure A complete two-dimensional transthoracic echocardiogram was performed (2D, M-mode, Doppler and color flow Doppler). Technically limited study. Left Ventricle The left ventricle is normal in size. Overall preserved LV systolic function. Regional wall motion ab normality could not be accuratedly assessed due to poor acoustic window. TDI reveals impaired relaxation with e levated filling pressure (E/E' > 20). Right Ventricle The right ventricle is not well visualized. Atria The left atrial size is normal. Right atrial size is normal. Mitral Valve There is mild mitral annular calcification. There is mild to moderate mitral regurgitation. Tricuspid Valve The tricuspid valve is normal in structure and function. No tricuspid regurgitation. Aortic Valve There is mild aortic sclerosis.;. No aortic regurgitation is present. Pulmonic Valve The pulmonic valve is not well visualized. Great Vessels The aortic root is normal size. Pericardium/Pleura There is no pericardial effusion. Interpretation Summary Technically limited study The left ventricle is normal in size. Overall preserved LV systolic function. Regional wall motion abnormality could not be accuratedly ass essed due to poor acoustic window TDI reveals impaired relaxation with elevated filling pressure (E/E' > 20) The right ventricle is not well visualized. The left atrial size is normal. Right atrial size is normal. There is mild mitral annular calcification. There is mild to moderate mitral regurgitation. There is mild aortic sclerosis.; There is no pericardial effusion. When compared to study dated 09/24/17, likely no significant changes are seen Neil Abraham MD 03/09/2018 12:03 PM
--- NOTE | 2018-03-09 12:17 | CONS ---
DATE OF CONSULTATION: DATE OF DICTATION: 03/09/2018 HISTORY: The patient is a 72-year-old female evaluated for urinary tract infection, possible sepsis secondary to UTI. History was obtained from the chart as she cannot give a reliable history secondary to dementia. The patient is a resident of a [facility] facility. She was transferred to the hospital on March 06, 2018 after being noted to have uncontrolled blood sugar. Her blood sugar was in excess of 500. Her initial evaluation showed pyuria. Urine culture is now growing presumed pseudomonas species. She is awake and responsive. She offers no complaints. She denies any dysuria or hematuria. No complaints of suprapubic or flank pain. PAST MEDICAL HISTORY: Positive for dementia, hypertension, hyperlipidemia, diabetes mellitus, atrial fibrillation, DVT. ALLERGIES: LATEX and SULFA. MEDICATIONS: Zosyn, heparin, Remeron, NovoLog, Levemir, aspirin, Synthroid. SOCIAL HISTORY: She is a skilled nursing resident. No active tobacco or alcohol use. SYSTEMS REVIEW: Neurologic: Positive for dementia. Cardiac: Positive atrial fibrillation. Respiratory: Negative cough or sputum production. Gastrointestinal: Negative vomiting or diarrhea. Genitourinary: As per HPI. LABORATORY DATA: White count 7, hematocrit 27, platelet count 374, BUN 25, creatinine 1.3. Urinalysis 1282 white cells. Blood cultures preliminarily negative. Urine culture presumed pseudomonas. PHYSICAL EXAMINATION: General: On examination, she is awake and responsive. She is in no acute distress. Vital Signs: Temperature 98.2, blood pressure 119/58, pulse 78 and regular, respirations 18 per minute. HEENT: Sclerae anicteric. Heart: Sounds irregular S1, S2. Lungs: Clear. Abdomen: Soft. No tenderness elicited. No suprapubic or flank tenderness. Extremities: Negative for edema. IMPRESSION: 1. Urinary tract infection/possible sepsis secondary to urinary tract infection. 2. Uncontrolled diabetes mellitus, possibly secondary to urinary tract infection. 3. Rule out myocardial infarction. 4. Dementia. PLAN: Await culture results. Empiric antibiotic coverage with cefepime pending culture results. We will follow. Thank you for the kind referral. DUSTIN ROJAS M.D. CASH/[id number]
--- NOTE | 2018-03-09 12:23 | PN ---
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, Physician History of Present Illness: 72 year old female with history of hypertension, hyperlipidemia, dementia presents from detention with elevated blood sugars found to have NSTEMI with elevated troponin (pk 0.3), ECG NSR, LVH TWI in V3-V6. Of note, patient is poor historian and could not accurately answer my questions. Denies any chest pain, palpitations, shortness of breath, orthopnea, PND or MAX. - Past Medical History Cardiovascular: Yes: AFIB, Deep Vein Thrombosis, HTN, Hyperlipdemia Heme/Onc: Yes: Anemia Endocrine: Yes: Diabetes Mellitus, Hypothyroidism - Current Medication List Current Medications: Active Medications Aspirin (Asa -) 81 mg PO DAILY [facility] Last Admin: 03/09/18 10:31 Dose: 81 mg Ferrous Sulfate (Feosol -) 325 mg PO BID [facility] Last Admin: 03/09/18 10:31 Dose: 325 mg Heparin Sodium (Porcine) (Heparin -) 1,000 unit IVPUSH PRN PRN PRN Reason: Heparin Heparin Sodium (Porcine) (Heparin -) 5,000 unit IVPUSH PRN PRN PRN Reason: Heparin Heparin Sodium (Porcine) 25, (000 unit/ Sodium Chloride) 500 mls @ 16 mls/hr IV TITR [facility]; Protocol Last Admin: 03/08/18 22:04 Dose: Not Given Cefepime HCl 1 gm/ Dextrose 100 mls @ 200 mls/hr IVPB BID [facility] Insulin Aspart (Novolog Vial Sliding Scale -) 1 vial SQ TIDAC [facility]; Protocol Last Admin: 03/09/18 12:18 Dose: Not Given Insulin Detemir (Levemir Vial) 18 units SQ BID@0700,2200 [facility] Last Admin: 03/09/18 07:40 Dose: Not Given Levothyroxine Sodium (Synthroid -) 50 mcg PO DAILY@0700 [facility] Last Admin: 03/09/18 06:16 Dose: 50 mcg Mirtazapine (Remeron -) 15 mg PO HS [facility] Last Admin: 03/08/18 22:09 Dose: 15 mg - Objective Vital Signs: Vital Signs Temperature 98.0 F 03/09/18 10:00 Pulse Rate 49 L 03/09/18 10:00 Respiratory Rate 18 03/09/18 10:00 Blood Pressure 132/58 L 03/09/18 10:00 O2 Sat by Pulse Oximetry (%) 97 03/09/18 09:00 Constitutional: Yes: Well Nourished, No Distress, Calm Eyes: Yes: WNL, Conjunctiva Clear, EOM Intact HENT: Yes: WNL, Atraumatic, Normocephalic Neck: Yes: WNL, Supple, Trachea Midline Cardiovascular: Yes: WNL, Regular Rate and Rhythm, Murmur, S1, S2 Respiratory: Yes: WNL, Regular, CTA Bilaterally Gastrointestinal: Yes: WNL, Normal Bowel Sounds Genitourinary: Yes: WNL Musculoskeletal: Yes: WNL Extremities: Yes: WNL Edema: No Integumentary: Yes: WNL Neurological: Yes: WNL, Alert, Oriented ...Motor Strength: WNL Psychiatric: Yes: WNL Labs: CBC, BMP 03/08/18 05:30 03/08/18 05:30 INR, PTT INR 1.39 (0.83-1.09) H 03/06/18 18:20 Laboratory Tests 03/06/18 03/06/18 03/06/18 18:00 18:20 18:20 WBC 6.6 RBC 3.28 L Hgb 10.1 L Hct 30.5 L MCV 93.2 MCH 30.8 MCHC 33.1 RDW 15.4 Plt Count 453 H MPV 9.0 Absolute Neuts (auto) Neutrophils % Lymphocytes % Monocytes % Eosinophils % Basophils % Nucleated RBC % PT with INR INR PTT (Actin FS) VBG pH POC VBG pCO2 POC VBG pO2 Mixed VBG HCO3 Sodium 138 Potassium 4.9 Chloride 106 Carbon Dioxide 23 Anion Gap 9 BUN 41 H Creatinine 1.6 H Creat Clearance w eGFR 31.78 POC Glucometer [phone] Random Glucose 355 H* Hemoglobin A1c % Lactic Acid Calcium 9.8 Phosphorus Magnesium Total Bilirubin 0.2 AST 16 ALT 17 Alkaline Phosphatase 52 Creatine Kinase 43 Troponin I 0.32 H Total Protein 8.0 Albumin 3.3 L Triglycerides Cholesterol Total LDL Cholesterol HDL Cholesterol Urine Color Urine Appearance Urine pH Ur Specific [place] Urine Protein Urine Glucose (UA) Urine Ketones Urine Blood Urine Nitrite Urine Bilirubin Urine Urobilinogen Ur Leukocyte Esterase Urine WBC (Auto) Urine RBC (Auto) Ur Epithelial Cells Urine Mucus Acetone, Qual Blood Type Antibody Screen 03/06/18 03/06/18 03/06/18 18:20 18:20 18:20 WBC RBC Hgb Hct MCV MCH MCHC RDW Plt Count MPV Absolute Neuts (auto) Neutrophils % Lymphocytes % Monocytes % Eosinophils % Basophils % Nucleated RBC % PT with INR INR PTT (Actin FS) VBG pH 7.33 POC VBG pCO2 45.4 POC VBG pO2 22.9 L Mixed VBG HCO3 23.5 Sodium Potassium Chloride Carbon Dioxide Anion Gap BUN Creatinine Creat Clearance w eGFR POC Glucometer Random Glucose Hemoglobin A1c % Lactic Acid 2.0 Calcium Phosphorus Magnesium Total Bilirubin AST ALT Alkaline Phosphatase Creatine Kinase Troponin I Total Protein Albumin Triglycerides Cholesterol Total LDL Cholesterol HDL Cholesterol Urine Color Urine Appearance Urine pH Ur Specific [place] Urine Protein Urine Glucose (UA) Urine Ketones Urine Blood Urine Nitrite Urine Bilirubin Urine Urobilinogen Ur Leukocyte Esterase Urine WBC (Auto) Urine RBC (Auto) Ur Epithelial Cells Urine Mucus Acetone, Qual Negative L Blood Type Antibody Screen 03/06/18 03/06/18 03/06/18 18:20 18:20 18:30 WBC RBC Hgb Hct MCV MCH MCHC RDW Plt Count MPV Absolute Neuts (auto) Neutrophils % Lymphocytes % Monocytes % Eosinophils % Basophils % Nucleated RBC % PT with INR 16.40 H INR 1.39 H PTT (Actin FS) VBG pH POC VBG pCO2 POC VBG pO2 Mixed VBG HCO3 Sodium Potassium Chloride Carbon Dioxide Anion Gap BUN Creatinine Creat Clearance w eGFR POC Glucometer Random Glucose Hemoglobin A1c % Lactic Acid Calcium Phosphorus Magnesium Total Bilirubin AST ALT Alkaline Phosphatase Creatine Kinase Troponin I Total Protein Albumin Triglycerides Cholesterol Total LDL Cholesterol HDL Cholesterol Urine Color Yellow Urine Appearance Turbid Urine pH 6.0 Ur Specific [place] 1.014 Urine Protein 3+ H Urine Glucose (UA) 2+ H Urine Ketones Negative Urine Blood 1+ H Urine Nitrite Positive Urine Bilirubin Negative Urine Urobilinogen Negative Ur Leukocyte Esterase 2+ H Urine WBC (Auto) 1282 Urine RBC (Auto) None Ur Epithelial Cells Few Urine Mucus Rare Acetone, Qual Blood Type B POSITIVE Antibody Screen Negative 03/06/18 03/06/18 03/06/18 18:39 20:28 20:34 WBC RBC Hgb Hct MCV MCH MCHC RDW Plt Count MPV Absolute Neuts (auto) Neutrophils % Lymphocytes % Monocytes % Eosinophils % Basophils % Nucleated RBC % PT with INR INR PTT (Actin FS) 29.8 VBG pH POC VBG pCO2 POC VBG pO2 Mixed VBG HCO3 Sodium Potassium Chloride Carbon Dioxide Anion Gap BUN Creatinine Creat Clearance w eGFR POC Glucometer [phone] Random Glucose Hemoglobin A1c % Lactic Acid Calcium Phosphorus Magnesium Total Bilirubin AST ALT Alkaline Phosphatase Creatine Kinase Troponin I 0.31 H Total Protein Albumin Triglycerides Cholesterol Total LDL Cholesterol HDL Cholesterol Urine Color Urine Appearance Urine pH Ur Specific [place] Urine Protein Urine Glucose (UA) Urine Ketones Urine Blood Urine Nitrite Urine Bilirubin Urine Urobilinogen Ur Leukocyte Esterase Urine WBC (Auto) Urine RBC (Auto) Ur Epithelial Cells Urine Mucus Acetone, Qual Blood Type Antibody Screen 03/07/18 03/07/18 03/07/18 03:09 03:09 05:40 WBC 8.0 RBC 2.76 L Hgb 8.2 L Hct 26.1 L MCV 94.4 MCH 29.7 MCHC 31.5 L RDW 15.5 Plt Count 409 MPV 9.1 Absolute Neuts (auto) 3.6 Neutrophils % 44.8 Lymphocytes % 38.9 D Monocytes % 9.0 Eosinophils % 6.2 H Basophils % 1.1 Nucleated RBC % 0 PT with INR INR PTT (Actin FS) 96.3 H VBG pH POC VBG pCO2 POC VBG pO2 Mixed VBG HCO3 Sodium Potassium Chloride Carbon Dioxide Anion Gap BUN Creatinine Creat Clearance w eGFR POC Glucometer Random Glucose Hemoglobin A1c % Lactic Acid Calcium Phosphorus Magnesium Total Bilirubin AST ALT Alkaline Phosphatase Creatine Kinase Troponin I 0.30 H Total Protein Albumin Triglycerides Cholesterol Total LDL Cholesterol HDL Cholesterol Urine Color Urine Appearance Urine pH Ur Specific [place] Urine Protein Urine Glucose (UA) Urine Ketones Urine Blood Urine Nitrite Urine Bilirubin Urine Urobilinogen Ur Leukocyte Esterase Urine WBC (Auto) Urine RBC (Auto) Ur Epithelial Cells Urine Mucus Acetone, Qual Blood Type Antibody Screen 03/07/18 03/07/18 03/07/18 05:40 05:40 06:43 WBC RBC Hgb Hct MCV MCH MCHC RDW Plt Count MPV Absolute Neuts (auto) Neutrophils % Lymphocytes % Monocytes % Eosinophils % Basophils % Nucleated RBC % PT with INR INR PTT (Actin FS) VBG pH POC VBG pCO2 POC VBG pO2 Mixed VBG HCO3 Sodium 143 Potassium 4.3 Chloride 112 H Carbon Dioxide 21 Anion Gap 10 BUN 33 H Creatinine 1.4 H Creat Clearance w eGFR 37.07 POC Glucometer 122 Random Glucose 103 Hemoglobin A1c % 8.4 H Lactic Acid Calcium 9.0 Phosphorus 3.1 Magnesium 2.3 Total Bilirubin AST ALT Alkaline Phosphatase Creatine Kinase Troponin I Total Protein Albumin Triglycerides 197 H Cholesterol 228 H Total LDL Cholesterol 151 H HDL Cholesterol 39 L Urine Color Urine Appearance Urine pH Ur Specific [place] Urine Protein Urine Glucose (UA) Urine Ketones Urine Blood Urine Nitrite Urine Bilirubin Urine Urobilinogen Ur Leukocyte Esterase Urine WBC (Auto) Urine RBC (Auto) Ur Epithelial Cells Urine Mucus Acetone, Qual Blood Type Antibody Screen 03/07/18 03/07/18 03/07/18 11:30 15:18 16:40 WBC 6.8 RBC 2.80 L Hgb 8.8 L Hct 25.8 L MCV 92.2 MCH 31.4 MCHC 34.0 RDW 15.6 Plt Count 374 MPV 8.1 D Absolute Neuts (auto) Neutrophils % Lymphocytes % Monocytes % Eosinophils % Basophils % Nucleated RBC % PT with INR INR PTT (Actin FS) 65.7 H VBG pH POC VBG pCO2 POC VBG pO2 Mixed VBG HCO3 Sodium Potassium Chloride Carbon Dioxide Anion Gap BUN Creatinine Creat Clearance w eGFR POC Glucometer 167 Random Glucose Hemoglobin A1c % Lactic Acid Calcium Phosphorus Magnesium Total Bilirubin AST ALT Alkaline Phosphatase Creatine Kinase Troponin I Total Protein Albumin Triglycerides Cholesterol Total LDL Cholesterol HDL Cholesterol Urine Color Urine Appearance Urine pH Ur Specific [place] Urine Protein Urine Glucose (UA) Urine Ketones Urine Blood Urine Nitrite Urine Bilirubin Urine Urobilinogen Ur Leukocyte Esterase Urine WBC (Auto) Urine RBC (Auto) Ur Epithelial Cells Urine Mucus Acetone, Qual Blood Type Antibody Screen 03/07/18 03/07/18 03/08/18 16:40 22:08 05:30 WBC RBC Hgb Hct MCV MCH MCHC RDW Plt Count MPV Absolute Neuts (auto) Neutrophils % Lymphocytes % Monocytes % Eosinophils % Basophils % Nucleated RBC % PT with INR INR PTT (Actin FS) 57.3 H VBG pH POC VBG pCO2 POC VBG pO2 Mixed VBG HCO3 Sodium Potassium Chloride Carbon Dioxide Anion Gap BUN Creatinine Creat Clearance w eGFR POC Glucometer 309 381 Random Glucose Hemoglobin A1c % Lactic Acid Calcium Phosphorus Magnesium Total Bilirubin AST ALT Alkaline Phosphatase Creatine Kinase Troponin I Total Protein Albumin Triglycerides Cholesterol Total LDL Cholesterol HDL Cholesterol Urine Color Urine Appearance Urine pH Ur Specific [place] Urine Protein Urine Glucose (UA) Urine Ketones Urine Blood Urine Nitrite Urine Bilirubin Urine Urobilinogen Ur Leukocyte Esterase Urine WBC (Auto) Urine RBC (Auto) Ur Epithelial Cells Urine Mucus Acetone, Qual Blood Type Antibody Screen 03/08/18 03/08/18 03/08/18 05:30 05:30 05:31 WBC 7.0 RBC 2.91 L Hgb 9.2 L Hct 27.0 L MCV 92.9 MCH 31.5 MCHC 33.9 RDW 15.7 H Plt Count 374 MPV 9.1 D Absolute Neuts (auto) Neutrophils % Lymphocytes % Monocytes % Eosinophils % Basophils % Nucleated RBC % PT with INR INR PTT (Actin FS) VBG pH POC VBG pCO2 POC VBG pO2 Mixed VBG HCO3 Sodium 141 Potassium 4.3 Chloride 112 H Carbon Dioxide 20 L Anion Gap 9 BUN 25 H Creatinine 1.3 Creat Clearance w eGFR 40.38 POC Glucometer 196 Random Glucose 150 H Hemoglobin A1c % Lactic Acid Calcium 8.8 Phosphorus Magnesium Total Bilirubin 0.2 AST 15 ALT 13 Alkaline Phosphatase 41 L Creatine Kinase Troponin I Total Protein 6.3 L Albumin 2.6 L Triglycerides Cholesterol Total LDL Cholesterol HDL Cholesterol Urine Color Urine Appearance Urine pH Ur Specific [place] Urine Protein Urine Glucose (UA) Urine Ketones Urine Blood Urine Nitrite Urine Bilirubin Urine Urobilinogen Ur Leukocyte Esterase Urine WBC (Auto) Urine RBC (Auto) Ur Epithelial Cells Urine Mucus Acetone, Qual Blood Type Antibody Screen 03/08/18 03/08/18 03/08/18 12:32 17:01 23:12 WBC RBC Hgb Hct MCV MCH MCHC RDW Plt Count MPV Absolute Neuts (auto) Neutrophils % Lymphocytes % Monocytes % Eosinophils % Basophils % Nucleated RBC % PT with INR INR PTT (Actin FS) VBG pH POC VBG pCO2 POC VBG pO2 Mixed VBG HCO3 Sodium Potassium Chloride Carbon Dioxide Anion Gap BUN Creatinine Creat Clearance w eGFR POC Glucometer 112 148 239 Random Glucose Hemoglobin A1c % Lactic Acid Calcium Phosphorus Magnesium Total Bilirubin AST ALT Alkaline Phosphatase Creatine Kinase Troponin I Total Protein Albumin Triglycerides Cholesterol Total LDL Cholesterol HDL Cholesterol Urine Color Urine Appearance Urine pH Ur Specific [place] Urine Protein Urine Glucose (UA) Urine Ketones Urine Blood Urine Nitrite Urine Bilirubin Urine Urobilinogen Ur Leukocyte Esterase Urine WBC (Auto) Urine RBC (Auto) Ur Epithelial Cells Urine Mucus Acetone, Qual Blood Type Antibody Screen 03/09/18 03/09/18 03/09/18 05:30 06:14 11:56 WBC RBC Hgb Hct MCV MCH MCHC RDW Plt Count MPV Absolute Neuts (auto) Neutrophils % Lymphocytes % Monocytes % Eosinophils % Basophils % Nucleated RBC % PT with INR INR PTT (Actin FS) 57.9 H VBG pH POC VBG pCO2 POC VBG pO2 Mixed VBG HCO3 Sodium Potassium Chloride Carbon Dioxide Anion Gap BUN Creatinine Creat Clearance w eGFR POC Glucometer 121 73 Random Glucose Hemoglobin A1c % Lactic Acid Calcium Phosphorus Magnesium Total Bilirubin AST ALT Alkaline Phosphatase Creatine Kinase Troponin I Total Protein Albumin Triglycerides Cholesterol Total LDL Cholesterol HDL Cholesterol Urine Color Urine Appearance Urine pH Ur Specific [place] Urine Protein Urine Glucose (UA) Urine Ketones Urine Blood Urine Nitrite Urine Bilirubin Urine Urobilinogen Ur Leukocyte Esterase Urine WBC (Auto) Urine RBC (Auto) Ur Epithelial Cells Urine Mucus Acetone, Qual Blood Type Antibody Screen Assessment/Plan 72 year old female with history of hypertension, hyperlipidemia, dementia presents from detention with elevated blood sugars found to have elevated troponin (pk 0.3), ECG NSR, LVH and TWI V3-V6. #NSTEMI Etiology: likely demand in setting of hyperglycermia and UTI Workup: --ECG NST, LVH, TWI in V3-V6 (no significant change from prior ECGs) --troponin 0.3, 0.3 --Echocardiogram 09/15: normal LV function, trace to mild TR, rSVP nl, mild to mod MR --lipid panel Treatment: -- heparin gtt 48 hours completed, aspirin 81mg --hold off on beta-evangelina therapy as patient remains bradycardic, SBP well controlled no additional therapy indicated at this time repeat ekg and tni
--- NOTE | 2018-03-09 13:25 | PN ---
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 (short form) - Note 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: pt seen/examined chart reviewed aler/ awake feels better family at bedside.-- Daughter All f/u noted Vital Signs Temp 98.0 F 03/09/18 10:00 Pulse 49 L 03/09/18 10:00 Resp 18 03/09/18 10:00 BP 132/58 L 03/09/18 10:00 Pulse Ox 97 03/09/18 09:00 Intake & Output 03/08/18 03/09/18 03/09/18 23:59 11:59 23:59 Intake Total 410 155 Balance 410 155 Intake: IV 155 Heparin - 25,000 Unit In 155 Normal Saline - 495 ml @ 800 UNIT/HR 16 mls/hr IV TITR [facility] Rx#:[id number] IVPB 50 Oral 360 Other: Voiding Method Incontinent Incontinent # Unmeasured Voids Void 1 Bowel Movement Yes # Bowel Movements 1 Active Medications Aspirin (Asa -) 81 mg PO DAILY [facility] Last Admin: 03/09/18 10:31 Dose: 81 mg Ferrous Sulfate (Feosol -) 325 mg PO BID [facility] Last Admin: 03/09/18 10:31 Dose: 325 mg Heparin Sodium (Porcine) (Heparin -) 1,000 unit IVPUSH PRN PRN PRN Reason: Heparin Heparin Sodium (Porcine) (Heparin -) 5,000 unit IVPUSH PRN PRN PRN Reason: Heparin Heparin Sodium (Porcine) 25, (000 unit/ Sodium Chloride) 500 mls @ 16 mls/hr IV TITR [facility]; Protocol Last Admin: 03/08/18 22:04 Dose: Not Given Cefepime HCl 1 gm/ Dextrose 100 mls @ 200 mls/hr IVPB BID [facility] Insulin Aspart (Novolog Vial Sliding Scale -) 1 vial SQ TIDAC [facility]; Protocol Last Admin: 03/09/18 12:18 Dose: Not Given Insulin Detemir (Levemir Vial) 18 units SQ BID@0700,2200 [facility] Last Admin: 03/09/18 07:40 Dose: Not Given Levothyroxine Sodium (Synthroid -) 50 mcg PO DAILY@0700 [facility] Last Admin: 03/09/18 06:16 Dose: 50 mcg Mirtazapine (Remeron -) 15 mg PO HS [facility] Last Admin: 03/08/18 22:09 Dose: 15 mg CBC, BMP 03/08/18 05:30 03/08/18 05:30 Microbiology 03/06/18 18:30 Urine Culture - Final Urine - Urine - Catheterized Pseudomonas Aeruginosa 03/06/18 18:20 Blood Culture - Preliminary Blood - Peripheral Venous NO GROWTH OBTAINED AFTER 48 HOURS, INCUBATION TO CONTINUE FOR 3 DAYS. 03/06/18 18:20 Blood Culture - Preliminary Blood - Peripheral Venous NO GROWTH OBTAINED AFTER 48 HOURS, INCUBATION TO CONTINUE FOR 3 DAYS. Physical Exam. Awake/ comfortable S1 S2 irregular Lungs - clear Abd- soft,non tender. bs + No edema PLAN Better d/c heparin heparin restart Eliquis on iv antibiotics- cultures noted ID eval noted troponins trending down-- likely elevated due to demand ischemia Blood sugar control - better will follow discussed with nursing staff as well as with pts daughter in detail . Problem List - Problems (1) Demand ischemia Code(s): I24.8 - OTHER FORMS OF ACUTE ISCHEMIC HEART DISEASE (2) Hyperglycemia Code(s): R73.9 - HYPERGLYCEMIA, UNSPECIFIED (3) NSTEMI (non-ST elevated myocardial infarction) Code(s): I21.4 - NON-ST ELEVATION (NSTEMI) MYOCARDIAL INFARCTION (4) UTI (urinary tract infection) Code(s): N39.0 - URINARY TRACT INFECTION, SITE NOT SPECIFIED Qualifiers: Urinary tract infection type: site unspecified Hematuria presence: with hematuria Qualified Code(s): N39.0 - Urinary tract infection, site not specified; R31.9 - Hematuria, unspecified (5) Afib Code(s): I48.91 - UNSPECIFIED ATRIAL FIBRILLATION Qualifiers: Atrial fibrillation type: chronic Qualified Code(s): I48.2 - Chronic atrial fibrillation (6) Dementia Code(s): F03.90 - UNSPECIFIED DEMENTIA WITHOUT BEHAVIORAL DISTURBANCE (7) Diabetes Code(s): E11.9 - TYPE 2 DIABETES MELLITUS WITHOUT COMPLICATIONS (8) HTN (hypertension) Code(s): I10 - ESSENTIAL (PRIMARY) HYPERTENSION (9) IDDM (insulin dependent diabetes mellitus) Code(s): E11.9 - TYPE 2 DIABETES MELLITUS WITHOUT COMPLICATIONS; Z79.4 - LONGTERM (CURRENT) USE OF INSULIN
[2018-03-09] MEDS ORDERED: CEFEPIME HCL 1 GM VIAL (RESTRICTED TO ID) ONE ×2 (14:46→22:42)
[2018-03-09] MEDS ORDERED: DEXTROSE 5%-WATER 100 ML IVPB ONE ×2 (14:47→22:43)
[2018-03-09] MEDS: CEFEPIME 1 GM in DEXTROSE 5%-WATER 100 ML IVPB SCH ×2 (15:21→23:23)
[2018-03-09] MEDS ORDERED: INSULIN (NOVOLOG) ASPART 100 UNITS/ML 10ML VIAL ONE (17:14)
[2018-03-09] MEDS: MIRTAZAPINE 15 MG TABLET (FP) PO SCH (23:22)
[2018-03-09] MEDS: APIXABAN 5 MG TABLET PO SCH (23:22)
[2018-03-10 06:16] LABS: EOS % 5.3 % (0-4.5); HEMATOCRIT 27.8 % (32.4-45.2); HEMOGLOBIN 8.8 GM/dL (10.7-15.3); LYMPH % 39.1 % (8-40); MCH 30.1 pg (25.7-33.7); MCHC 31.8 g/dl (32.0-36.0); MEAN CELL VOLUME 94.5 fl (80-96); MEAN PLT VOLUME 8.8 fl (7.5-11.1); MONO % 7.8 % (3.8-10.2); NEUT % 46.8 % (42.8-82.8); PLATELET COUNT 351 K/MM3 (134-434); RBC 2.94 M/mm3 (3.60-5.2); RDW 15.6 % (11.6-15.6); WHITE BLOOD COUNT 6.5 K/mm3 (4.0-10.0)
[2018-03-10] MEDS: LEVOTHYROXINE NA 50 MCG TABLET (FP) PO SCH (06:45)
[2018-03-10] MEDS: INSULIN SLIDING SCALE (NOVOLOG) 1 VIAL SQ SCH ×2 (06:50→11:55)
[2018-03-10] MEDS: INSULIN (LEVEMIR) 100 UNITS/ML UNITS SQ SCH (06:51)
[2018-03-10 06:54] LABS: ALBUMIN 2.6 g/dl (3.4-5.0); ALK PHOS 44 U/L (45-117); ANION GAP 9 MMOL/L (8-16); BILIRUBIN,TOTAL 0.2 mg/dL (0.2-1); BLOOD UREA NITROGEN 23 mg/dL (7-18); CALCIUM 8.8 mg/dL (8.5-10.1); CHLORIDE 109 mmol/L (98-107); CO2 20 mmol/L (21-32); CREATININE 1.3 mg/dL (0.55-1.3); GLUCOSE,RANDOM 215 mg/dL (74-106); POTASSIUM 4.3 mmol/L (3.5-5.1); SGOT/AST 18 U/L (15-37); SGPT/ALT 13 U/L (13-61); SODIUM 137 mmol/L (136-145); TOT PROT 6.7 g/dl (6.4-8.2)
[2018-03-10] MEDS: FERROUS SO4 325 MG TABLET (FP) PO SCH (10:54)
[2018-03-10] MEDS: ASPIRIN 81 MG CHEWABLE TABLETS PO SCH (10:54)
[2018-03-10] MEDS: APIXABAN 5 MG TABLET PO SCH (10:54)
[2018-03-10] MEDS: CEFEPIME 1 GM in DEXTROSE 5%-WATER 100 ML IVPB SCH (10:55)
--- NOTE | 2018-03-10 12:06 | DS ---
Physical Examination Vital Signs: Vital Signs Temperature 98.4 F 03/10/18 05:00 Pulse Rate 58 L 03/10/18 05:00 Respiratory Rate 120 H 03/10/18 05:00 Blood Pressure 116/57 L 03/10/18 05:00 O2 Sat by Pulse Oximetry (%) 97 03/09/18 09:00 Constitutional: Yes: No Distress, Calm Cardiovascular: Yes: Pulse Irregular Respiratory: Yes: CTA Bilaterally Gastrointestinal: Yes: Normal Bowel Sounds, Soft. No: Tenderness Edema: No Labs: CBC, BMP 03/10/18 05:30 03/10/18 05:30 Discharge Summary Reason For Visit: URNINARY TRACT INFECTION NON-ST ELEVATION MYOCARDI Current Active Problems Demand ischemia (Acute) Hyperglycemia (Acute) NSTEMI (non-ST elevated myocardial infarction) (Acute) UTI (urinary tract infection) (Acute) functional quadriplegia Hospital Course: Admitted for sepsis, due to UTI and NSTEMi-- demand ischemia due to UTI She was started on heparin derip and iv antibiotics seen by cardiology and ID heparin gtt dc and NOAC continued No further interventions cardiac collins per cardiology stable for dc to NH on PO antibiotics Condition: Fair - Instructions Referrals: Shanae Brooks MD [Primary Care Provider] - [facility] - Home Medications Comprehensive Discharge Medication List: Ambulatory Orders Atenolol [Tenormin -] 25 mg PO DAILY 12/26/14 Levothyroxine [Synthroid -] 50 mcg PO DAILY 12/26/14 Ferrous Sulfate [Feosol] 325 mg PO BID [facility] 12/27/14 Fenofibric Acid (Choline) [Trilipix] 135 mg PO DAILY 09/24/17 Sodium Phosphate/Na Biphos [Fleet Adult Rectal Enema -] 133 ml RC DAILY PRN Vit A/Vitamin D3/E/Aloe V/Zinc [Periguard Ointment] 100 gm TP TID 09/24/17 Apixaban [Eliquis] 5 mg PO BID #90 tablet 09/30/17 Insulin Glargine,Hum.rec.anlog [Basaglar Kwikpen U-100] 18 unit SQ BID 03/06/18 Insulin Lispro [Humalog] 0 unit SQ ASDIR 03/06/18 Mirtazapine [Remeron Soltab -] 15 mg PO HS 03/06/18 Sennosides [Senna] 2 tab PO HS 03/06/18 Zinc Oxide 20% Topical Oint 1 applic .ROUTE DAILY 03/06/18
[2018-03-10] MEDS ORDERED: SODIUM PHOSPHATE/NA BIPHOS 133 ML ENEMA PR ONE (12:07)
[2018-03-10 12:14] VITALS: BP 134/52; PULSE 62; TEMP 98.1
--- NOTE | 2018-03-10 12:50 | PN ---
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, Physician Chief Complaint: Pt alert; denies chest pain or dyspnea; says she was admitted for "sugar problems". Gives hx of coronary angiogram at [facility] "many years ago"; denies hx IA. History of Present Illness: The patient is a 72 black woman w/ a history of T2DM, HTN, hypothyroidism who presents from [facility] for evaluation for high blood glucose, reportedly >500. On presentation the patient denies any symptoms at this time or prior to presentation. She denies recent fevers/chills, MEEKS, vision changes, chest pain, SOB, abdominal pain, N/V/C/D 03/06/18 18:05 - Current Medication List Current Medications: Active Medications Apixaban (Eliquis -) 5 mg PO BID [facility] Last Admin: 03/10/18 10:54 Dose: 5 mg Aspirin (Asa -) 81 mg PO DAILY [facility] Last Admin: 03/10/18 10:54 Dose: 81 mg Ferrous Sulfate (Feosol -) 325 mg PO BID [facility] Last Admin: 03/10/18 10:54 Dose: 325 mg Cefepime HCl 1 gm/ Dextrose 100 mls @ 200 mls/hr IVPB BID [facility] Last Admin: 03/10/18 10:55 Dose: 200 mls/hr Insulin Aspart (Novolog Vial Sliding Scale -) 1 vial SQ TIDAC [facility]; Protocol Last Admin: 03/10/18 11:55 Dose: 2 units Insulin Detemir (Levemir Vial) 18 units SQ BID@0700,2200 [facility] Last Admin: 03/10/18 06:51 Dose: 18 units Levothyroxine Sodium (Synthroid -) 50 mcg PO DAILY@0700 [facility] Last Admin: 03/10/18 06:45 Dose: 50 mcg Mirtazapine (Remeron -) 15 mg PO HS [facility] Last Admin: 03/09/18 23:22 Dose: 15 mg - Objective Vital Signs: Vital Signs Temperature 98.1 F 03/10/18 09:00 Pulse Rate 62 03/10/18 09:00 Respiratory Rate 14 03/10/18 09:00 Blood Pressure 134/52 L 03/10/18 09:00 O2 Sat by Pulse Oximetry (%) 97 03/10/18 09:00 Labs: CBC, BMP 03/10/18 05:30 03/10/18 05:30 INR, PTT INR 1.39 (0.83-1.09) H 03/06/18 18:20 Problem List - Problems (1) Chronic diastolic CHF (congestive heart failure) Code(s): I50.32 - CHRONIC DIASTOLIC (CONGESTIVE) HEART FAILURE (2) Dementia Code(s): F03.90 - UNSPECIFIED DEMENTIA WITHOUT BEHAVIORAL DISTURBANCE (3) Diabetes Code(s): E11.9 - TYPE 2 DIABETES MELLITUS WITHOUT COMPLICATIONS (4) HTN (hypertension) Assessment/Plan: Consider starting ACEI or ARB (HTN; DM; diastolic CHF). Code(s): I10 - ESSENTIAL (PRIMARY) HYPERTENSION (5) Hyperlipidemia Assessment/Plan: start statin (LDL > 150 mg/dL; DM; CAD, mildly elevated TNI). Code(s): E78.5 - HYPERLIPIDEMIA, UNSPECIFIED (6) Elevated troponin I level Assessment/Plan: mild elevation (0.3); no significant change since 08/2017. Normal LVEF and wall motion. Code(s): R74.8 - ABNORMAL LEVELS OF OTHER SERUM ENZYMES
== END 2018-03-10 16:47 | DRG 637 ==
LOC: JER 17:09 → JERBED 22:31 → J4W 03-07 04:56
PROVIDERS: ADMIT Internal Medicine; ATTEND Internal Medicine
DX: E11.65 Type 2 diabetes mellitus with hyperglycemia (principal); I21.4 Non-ST elevation (NSTEMI) myocardial infarction; R53.2 Functional quadriplegia; I24.8 Other forms of acute ischemic heart disease; N39.0 Urinary tract infection, site not specified; I13.0 Hypertensive heart and chronic kidney disease with heart failure and stage 1 through stage 4 chronic kidney disease, or unspecified chronic kidney disease; I50.32 Chronic diastolic (congestive) heart failure; E03.9 Hypothyroidism, unspecified; I48.91 Unspecified atrial fibrillation; L89.222 Pressure ulcer of left hip, stage 2; K21.9 Gastro-esophageal reflux disease without esophagitis; F32.9 Major depressive disorder, single episode, unspecified; D64.9 Anemia, unspecified; E11.22 Type 2 diabetes mellitus with diabetic chronic kidney disease; N18.3 Chronic kidney disease, stage 3 (moderate); I25.10 Atherosclerotic heart disease of native coronary artery without angina pectoris; I25.2 Old myocardial infarction; Z86.718 Personal history of other venous thrombosis and embolism; Z79.4 Long term (current) use of insulin
CPT/HCPCS: 36415; 71045-TC-FY; 80048; 80053; 80061; 81003; 81015; 82009; 82550; 82803; 82962; 83036; 83605; 83721; 83735; 84100; 84484; 85025; 85027; 85610; 85730; 86850; 86900; 86901; 87040; 87086; 87186; 93005; 93010; 93306-TC; 99285-25; J1644; J7030

== ENCOUNTER 2019-06-11 20:34 | Inpatient (IN) | payer OTHER ==
--- NOTE | 2019-06-11 20:57 | PDOC ---
Attending Attestation - Resident Resident Name: Ana Cristina Erwin - ED Attending Attestation I have performed the following: I have examined & evaluated the patient, The case was reviewed & discussed with the resident, I agree w/resident's findings & plan - HPI HPI: 06/11/19 21:56 Pt comes with altered MS and resp distress. From the NH; she is clearly septic; febrile; dry; blood at hear mouth. We managed to intubate her with difficulty. IV lines placed; labs sent; COVID screen sent Pt had denis placed. - Physicial Exam PE: 06/11/19 21:58 Systolic murmur; lungs clear bilat; crackles at the left chest Abd tender throughout Denis draining cloudy urine No swelling or edema of the legs/arms - Critical Care Time Total Critical Care Time: 75 Critical Care Statement: The care of this patient involved high complexity decision making to prevent further life threatening deterioration of the patient's condition and/or to evaluate & treat vital organ system(s) failure or risk of failure. - Medical Decision Making 06/11/19 21:02 Our glidescope is being washed; MICU glidescope is broken; we will do a direct intubation 06/11/19 22:01 Pt intubated with a 6.5ETT; 23 at the lips. Post tube XR pending. Pt will be admitted to the MICU once her labs are back. 06/11/19 22:39 Pt has GIBleed,UTI, respiratory failure Ofirmev, zosyn, NSS x 3 L given; propofol drip; rocuronium on board. Admit to hospitalists ICU bed. Heart Score/ECG Review - ECG Intrepretation Rhythm: Regular Rhythm - [place]: Normal - P and ME Prominent R with upright T in V1 (true posterior ID): No Delta Wave(s) Present: No WPW: No - QRS Poor R Wave Progression: No Q Wave Present: No - ST and T Early Repolarization: No Non Specific ST-T Wave changes: No - ECG Impressions Normal ECG: Yes Non-specific ST Elevation: No Ischemic Changes: Yes (flat T waves anterolaterally) Discharge - Discharge Information Problems reviewed: Yes Clinical Impression/Diagnosis: Severe sepsis, Elevated troponin I level, ODESSA (acute kidney injury), Hyperk alemia, Hypernatremia UTI (urinary tract infection) Qualifiers: Urinary tract infection type: site unspecified Hematuria presence: with hematuria Qualified Code(s): N39.0 - Urinary tract infection, site not specified - Follow up/Referral - Patient Discharge Instructions - Post Discharge Activity
[2019-06-11] MEDS ORDERED: ETOMIDATE 20 MG/10 ML AMPUL IVPUSH ONE (21:00)
[2019-06-11] MEDS ORDERED: ROCURONIUM BROMIDE 50 MG/5 ML VIAL IV ONE ×3 (21:00→23:10)
[2019-06-11] MEDS ORDERED: PIPERACILLIN/TAZOB 4.5 GM 4.5 GM in DEXTROSE 5%-WATER 100 ML IVPB ONE (21:01)
[2019-06-11] MEDS ORDERED: RAPID SEQUENCE INTUBATION KIT NR ONE (21:07)
[2019-06-11] MEDS ORDERED: ACETAMINOPHEN INJECTION 100 ML IVPB ONE (21:11)
[2019-06-11 21:18] LABS: BASO % 0.2 % (0-2.0); EOS % 0.3 % (0-4.5); HEMATOCRIT 28.4 % (32.4-45.2); HEMOGLOBIN 8.7 GM/dL (10.7-15.3); MCH 31.4 pg (25.7-33.7); MCHC 30.7 g/dl (32.0-36.0); MEAN PLT VOLUME 8.9 fl (7.5-11.1); MONO % 5.1 % (3.8-10.2); NEUT % 84.4 % (42.8-82.8); PLATELET COUNT 490 K/MM3 (134-434); RBC 2.79 M/mm3 (3.60-5.2); RDW 14.6 % (11.6-15.6); WHITE BLOOD COUNT 20.6 K/mm3 (4.0-10.0)
[2019-06-11 21:25] LABS: INR 1.77 (0.83-1.09)
[2019-06-11 21:28] LABS: ACTIVATED PTT 27.9 SECONDS (25.2-36.5)
[2019-06-11 21:33] LABS: EPI CELLS >36 /HPF (0-5/HPF); HYALINE CASTS 123 /lpf (0-8); PH,URINE 7.5 (5.0-8.0); URINE APPEARANCE TURBID; URINE BILIRUBIN NEGATIVE (NEGATIVE); URINE COLOR YELLOW; URINE GLUCOSE (UA) NEGATIVE (NEGATIVE); URINE KETONE TRACE (NEGATIVE); URINE LEUK ESTERASE 3+ (NEGATIVE); URINE NITRITE NEGATIVE (NEGATIVE); URINE PROTEIN 3+ (NEGATIVE); URINE UROBILINOGEN 0.2 mg/dL (0.2-1.0); URINE WBC 12154 /hpf (0-5)
[2019-06-11] MEDS ORDERED: PROPOFOL 1,000,000 MCG/100 ML VIAL ONE (21:37)
[2019-06-11 21:41] LABS: ANISOCYTOSIS 1+; MACROCYTOSIS 1+; PLATELET ESTIMATE INCREASED
--- NOTE | 2019-06-11 22:06 | PDOC ---
History of Present Illness <Deepali Maloney - Last Filed: 06/11/19 22:40> - History of Present Illness Initial Comments: 06/11/19 22:08 73 yo F PMH functional quadriplegia, T2DM, HTN, hypothyroidism, NSTEMI in 2018, BIBEMS from [facility] with tachypneic, fever and AMS. At baseline, patient reportedly alert and oriented X3. Per EMS, patient was satting 97% on 4L NC and uses 4L at baseline. Patient altered, tachypneic, unable to provide ROS or history. <Juancho Erwingiuliana - Last Filed: 06/12/19 03:46> - General Chief Complaint: SIRS, Suspected/Possible Stated Complaint: ABNORMAL BREATHING, HIGH FEVER Time Seen by Provider: 06/11/19 20:57 Past History <Deepali Maloney - Last Filed: 06/11/19 22:40> - Past Medical History Anemia: Yes Asthma: No Cancer: No Cardiac Disorders: Yes (A-fib) COPD: No CHF: No Dementia: Yes Diabetes: Yes GI Disorders: Yes (GERD) Disorders: Yes (UTIs) HTN: Yes Hypercholesterolemia: Yes Psychiatric Problems: Yes (Depression) Thyroid Disease: Yes (Hypothyroid) - Surgical History Abdominal Surgery: Yes (umbilical hernia repair) Orthopedic Surgery: (RIGHT FEMORAL HEMIARTHROPLASTY) - Immunization History Immunization Up to Date: Yes - Psycho Social/Smoking Cessation Hx Smoking Status: No Smoking History: Unknown if ever smoked Have you smoked in the past 12 months: No Number of Cigarettes Smoked Daily: 0 Information on smoking cessation initiated: No Hx Alcohol Use: No Drug/Substance Use Hx: No Substance Use Type: Alcohol Hx Substance Use Treatment: No <Ana Cristina Erwin - Last Filed: 06/12/19 03:46> - Past Medical History Allergies/Adverse Reactions: Allergies Allergy/AdvReac Type Severity Reaction Status Date / Time latex Allergy Verified 06/11/19 20:42 shellfish derived Allergy Verified 06/11/19 20:42 Sulfa (Sulfonamide Allergy Verified 06/11/19 20:42 Antibiotics) [Sulfa(Sulfonamide Antibiotics)] Home Medications: Ambulatory Orders Atenolol [Tenormin -] 25 mg PO DAILY 12/26/14 Levothyroxine [Synthroid -] 50 mcg PO DAILY 12/26/14 Ferrous Sulfate [Feosol] 325 mg PO BID ud 12/27/14 Fenofibric Acid (Choline) [Trilipix] 135 mg PO DAILY 09/24/17 Sodium Phosphate/Na Biphos [Fleet Adult Rectal Enema -] 133 ml RC DAILY PRN 09/24/17 Vit A/Vitamin D3/E/Aloe V/Zinc [Periguard Ointment] 100 gm TP TID 09/24/17 Apixaban [Eliquis] 5 mg PO BID #90 tablet 09/30/17 Insulin Glargine,Hum.rec.anlog [Basaglar Kwikpen U-100] 18 unit SQ BID 03/06/18 Insulin Lispro [Humalog] 0 unit SQ ASDIR 03/06/18 Mirtazapine [Remeron Soltab -] 15 mg PO HS 03/06/18 Sennosides [Senna] 2 tab PO HS 03/06/18 Zinc Oxide 20% Topical Oint 1 applic .ROUTE DAILY 03/06/18 Levofloxacin [Levaquin] 500 mg PO DAILY #5 tablet 03/10/18 Review of Systems - Review of Systems Comments:: 06/12/19 00:39 Unable to assess due to AMS. <Ana Cristina Erwin - Last Filed: 06/12/19 03:46> *Physical Exam - Vital Signs Last Vital Signs Temp Pulse Resp BP Pulse Ox 82 14 95/50 L 98 06/11/19 21:58 06/11/19 21:58 06/11/19 20:42 06/11/19 21:58 <Deepali Maloney - Last Filed: 06/11/19 22:40> - Vital Signs Last Vital Signs Temp Pulse Resp BP Pulse Ox 82 14 95/50 L 98 06/11/19 21:58 06/11/19 21:58 06/11/19 20:42 06/11/19 21:58 - Physical Exam 06/12/19 00:39 Gen: appears distressed Neuro: PERRLA, unable to assess cranial nerves or orientation HEENT: atraumatic, normocephalic, dry mucous membranes Neck: trachea midline, supple CV: regular rate, regular rhythm, systolic murmur Pulm: tachypneic, CTA b/l, no wheezing Abd: soft, distended, suprapubic tenderness MSK: full ROM, intact pulses Extr: no edema, no deformities Skin: warm, dry <Ana Cristina Erwin - Last Filed: 06/12/19 03:46> Procedures - Intubation Intubation Method: orotracheal Blade used: Mac Tube Size (Fr): 6.5 Medications: Etomidate, Succinylcholine Tube position @ lip (cm): 23 Tube position confirmed by: Direct visualization, CO2 detector, Chest x-ray, Breath sounds Breath Sounds after Intubation: equal Intubation Complications: no complications Post Intubation Xray: Yes <Deepali Maloney - Last Filed: 06/11/19 22:40> ED Treatment Course - LABORATORY CBC & Chemistry Diagram: 06/11/19 20:57 06/11/19 20:57 - ADDITIONAL ORDERS Additional order review: Laboratory Results 06/11/19 06/11/19 06/11/19 20:57 20:57 20:57 PT with INR INR PTT (Actin FS) Sodium Potassium Chloride Carbon Dioxide Anion Gap BUN Creatinine Est GFR (CKD-EPI)AfAm Est GFR (CKD-EPI)NonAf POC Glucometer Random Glucose Lactic Acid Calcium Total Bilirubin AST ALT Alkaline Phosphatase Creatine Kinase Creatine Kinase Index CK-MB (CK-2) Cancelled Troponin I Total Protein Albumin Urine Color Yellow Urine Appearance Turbid Urine pH 7.5 D Ur Specific [place] 1.018 Urine Protein 3+ H Urine Glucose (UA) Negative Urine Ketones Trace H Urine Blood 1+ H Urine Nitrite Negative Urine Bilirubin Negative Urine Urobilinogen 0.2 Ur Leukocyte Esterase 3+ H Urine WBC (Auto) 53692 Urine Casts (Auto) 123 U Epithel Cells (Auto) >36 Urine Bacteria (Auto) Above linearity Blood Type B POSITIVE Antibody Screen Negative 06/11/19 06/11/19 06/11/19 20:57 20:57 20:57 PT with INR INR PTT (Actin FS) Sodium 161 H* Potassium 6.2 H* Chloride 134 H Carbon Dioxide 20 L Anion Gap 7 L BUN 126.6 H* Creatinine 3.0 H Est GFR (CKD-EPI)AfAm 17.27 Est GFR (CKD-EPI)NonAf 14.90 POC Glucometer Random Glucose 208 H Lactic Acid 2.1 H Calcium 9.3 Total Bilirubin 0.6 AST 33 ALT 24 Alkaline Phosphatase 75 Creatine Kinase 1314 H Creatine Kinase Index 0.1 CK-MB (CK-2) 1.1 Troponin I 0.46 H Total Protein 8.3 H Albumin 2.6 L Urine Color Urine Appearance Urine pH Ur Specific [place] Urine Protein Urine Glucose (UA) Urine Ketones Urine Blood Urine Nitrite Urine Bilirubin Urine Urobilinogen Ur Leukocyte Esterase Urine WBC (Auto) Urine Casts (Auto) U Epithel Cells (Auto) Urine Bacteria (Auto) Blood Type Antibody Screen 06/11/19 06/11/19 20:57 20:39 PT with INR 21.00 H INR 1.77 H PTT (Actin FS) 27.9 Sodium Potassium Chloride Carbon Dioxide Anion Gap BUN Creatinine Est GFR (CKD-EPI)AfAm Est GFR (CKD-EPI)NonAf POC Glucometer 186 Random Glucose Lactic Acid Calcium Total Bilirubin AST ALT Alkaline Phosphatase Creatine Kinase Creatine Kinase Index CK-MB (CK-2) Troponin I Total Protein Albumin Urine Color Urine Appearance Urine pH Ur Specific [place] Urine Protein Urine Glucose (UA) Urine Ketones Urine Blood Urine Nitrite Urine Bilirubin Urine Urobilinogen Ur Leukocyte Esterase Urine WBC (Auto) Urine Casts (Auto) U Epithel Cells (Auto) Urine Bacteria (Auto) Blood Type Antibody Screen 06/11/19 06/11/19 20:57 20:39 RBC 2.79 L MCV 102.0 H MCHC 30.7 L RDW 14.6 MPV 8.9 Neutrophils % 84.4 H D Lymphocytes % 10.0 D Monocytes % 5.1 Eosinophils % 0.3 D Basophils % 0.2 POC Glucometer 186 - RADIOLOGY Radiology Studies Ordered: Category Date Time Status CHEST X-RAY PORTABLE* [RAD] Stat Radiology 06/11/19 20:50 Completed CXRPORT [CHEST X-RAY PORTABLE*] [RAD] Stat Radiology 06/11/19 22:02 Ordered - Medications Given in the ED: ED Medications Discontinued Medications Generic Name Dose Route Start Last Admin Trade Name Freq PRN Reason Stop Dose Admin Etomidate 20 mg 06/11/19 21:00 06/11/19 22:12 Amidate - IVPUSH 06/11/19 21:01 20 mg ONCE ONE Administration Piperacillin Sod/Tazobactam 100 mls @ 200 mls/hr 06/11/19 21:01 06/11/19 22:20 Sod 4.5 gm/ Dextrose IVPB 06/11/19 21:30 200 mls/hr ONCE ONE Administration Protocol Rocuronium [place] 80 mg 06/11/19 21:00 06/11/19 22:12 Zemuron - IV 06/11/19 21:01 80 mg ONCE ONE Administration <Maloney,Deepali - Last Filed: 06/11/19 22:40> - LABORATORY CBC & Chemistry Diagram: 06/11/19 20:57 06/12/19 02:09 - ADDITIONAL ORDERS Additional order review: Laboratory Results 06/11/19 06/11/19 06/11/19 20:57 20:57 20:57 PT with INR 21.00 H INR 1.77 H PTT (Actin FS) 27.9 POC Glucometer Lactic Acid 2.1 H Urine Color Yellow Urine Appearance Turbid Urine pH 7.5 D Ur Specific [place] 1.018 Urine Protein 3+ H Urine Glucose (UA) Negative Urine Ketones Trace H Urine Blood 1+ H Urine Nitrite Negative Urine Bilirubin Negative Urine Urobilinogen 0.2 Ur Leukocyte Esterase 3+ H Urine WBC (Auto) 98237 Urine Casts (Auto) 123 U Epithel Cells (Auto) >36 Urine Bacteria (Auto) Above linearity 06/11/19 20:39 PT with INR INR PTT (Actin FS) POC Glucometer 186 Lactic Acid Urine Color Urine Appearance Urine pH Ur Specific [place] Urine Protein Urine Glucose (UA) Urine Ketones Urine Blood Urine Nitrite Urine Bilirubin Urine Urobilinogen Ur Leukocyte Esterase Urine WBC (Auto) Urine Casts (Auto) U Epithel Cells (Auto) Urine Bacteria (Auto) 06/11/19 06/11/19 20:57 20:39 RBC 2.79 L MCV 102.0 H MCHC 30.7 L RDW 14.6 MPV 8.9 Neutrophils % 84.4 H D Lymphocytes % 10.0 D Monocytes % 5.1 Eosinophils % 0.3 D Basophils % 0.2 POC Glucometer 186 <Ana Cristina Erwin - Last Filed: 06/12/19 03:46> Medical Decision Making - Critical Care Time Total Critical Care Time (minutes): 75 Critical Care Statement: The care of this patient involved high complexity decision making to prevent further life threatening deterioration of the patient's condition and/or to evaluate & treat vital organ system(s) failure or risk of failure. <Deepali Maloney - Last Filed: 06/11/19 22:40> - Medical Decision Making 06/11/19 21:42 Concern for sepsis considering rectal temp of 101F, specifically urosepsis due to tender abdomen and cloudy urine in [place]. Further concern for potential GI bleed with coffee grounds in OG tube and dark material in oropharynx, cleared with 200ccs of normal saline flushing. - sepsis order set - EKG - CXR without acute abnormality - COVID, respiratory panel, and flu due to febrile and tachypnea - UA/UC - admit Patient with tachypnea to 50s, successfully intubated with 6.5F tube with direct laryngoscopy. Will admit to ICU. 06/11/19 22:05 EKG with normal sinus at 97 bpm, left axis deviation, flat T waves in V1-V6, without T wave inversions that were present in most recent EKG from 2 years ago. HI 130, QRS 80, QTc 497. WBC 20.6, Hgb 8.7, lactate 2.1, UA with massive bacteria, 3+ leuks, concerning for massive UTI. CXR without acute pathology. 06/11/19 22:43 Na 161, K 6.2, Cr 3, BUN 126. No EKG changes. Giving 10 units of regular insulin with D50, will consult nephro. Also cardio for trop of 0.46. Will admit to ICU. 06/11/19 23:08 Dr. Schmidt states troponin is likely non-cardiac in nature, trend, no meds for now. Patient endorsed to ICU and hospitalist for further management. <Ana Cristina Erwin - Last Filed: 06/12/19 03:46> Discharge <Deepali Maloney - Last Filed: 06/11/19 22:40> - Discharge Information Problems reviewed: Yes <Ana Cristina Erwin - Last Filed: 06/12/19 03:46> - Discharge Information Clinical Impression/Diagnosis: Severe sepsis, Elevated troponin I level, ODESSA (acute kidney injury), Hyperkalemia, Hypernatremia UTI (urinary tract infection) Qualifiers: Urinary tract infection type: site unspecified Hematuria presence: with hematuria Qualified Code(s): N39.0 - Urinary tract infection, site not specified
[2019-06-11] MEDS: PROPOFOL 1,000,000 MCG/100 ML VIAL IVPB SCH (22:13)
[2019-06-11] MEDS ORDERED: PIPERACILLIN/TAZOB 4.5 GM 4.5 GM/100 ML BAG IVPB ONE (22:16)
[2019-06-11 22:17] LABS: ALBUMIN 2.6 g/dl (3.4-5.0); BILIRUBIN,TOTAL 0.6 mg/dL (0.2-1); CALCIUM 9.3 mg/dL (8.5-10.1); TOT PROT 8.3 g/dl (6.4-8.2)
[2019-06-11 22:20] LABS: BLOOD UREA NITROGEN 126.6 mg/dL (7-18)
[2019-06-11 22:21] LABS: POTASSIUM 6.2 mmol/L (3.5-5.1)
[2019-06-11] MEDS ORDERED: INSULIN REGULAR HUMAN 100 UNITS/ML *VIAL IVPUSH ONE (22:21)
[2019-06-11] MEDS ORDERED: DEXTROSE 50%-WATER - 25 GM/50 ML VIAL IVPUSH ONE (22:22)
[2019-06-11] MEDS ORDERED: SODIUM CHLORIDE 2,177 ML IV ONE (22:23)
[2019-06-11] MEDS ORDERED: INSULIN REGULAR HUMAN 100 UNITS/ML *VIAL ONE (22:29)
[2019-06-11] MEDS ORDERED: DEXTROSE 50%-WATER 25 GM/50 ML DISP.SYRIN ONE (22:29)
[2019-06-11] MEDS ORDERED: SODIUM CHLORIDE 1,000 ML IV SCH (23:00)
[2019-06-11 23:04] LABS: URINE RBC 121.7 /hpf (0-4)
[2019-06-11 23:05] LABS: YEAST NEGATIVE (NEGATIVE)
--- NOTE | 2019-06-11 23:07 | HP ---
Admitting History and Physical - Primary Care Physician PCP: Shanae Brooks - Admission Chief Complaint: Fever, Tachypnea, AMS History of Present Illness: This is a 73 y/o woman from [facility] with a PMHx of HTN, DM, Hypothyriodism, NSTEMI (2018), Functional Quadriplegia. Who presents to the ED with fever, tachypnea, AMS. On arrival to the ED patient was in acute respiratory distress, Intubated in the ED. 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 Cardiovascular: Yes: AFIB, CHF, Deep Vein Thrombosis, HTN, Hyperlipdemia, CO (NS SCARLETT) Heme/Onc: Yes: Anemia Endocrine: Yes: Diabetes Mellitus, Hypothyroidism - Smoking History Smoking history: Unknown if ever smoked Have you smoked in the past 12 months: No Aproximately how many cigarettes per day: 0 - Alcohol/Substance Use Hx Alcohol Use: No History of Substance Use: reports: None - Social History Usual Living Arrangement: Yes: Senior Care ADL: Support Services 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 History of Recent Travel: No Home Medications - Allergies Allergies/Adverse Reactions: Allergies Allergy/AdvReac Type Severity Reaction Status Date / Time latex Allergy Verified 06/11/19 20:42 shellfish derived Allergy Verified 06/11/19 20:42 Sulfa (Sulfonamide Allergy Verified 06/11/19 20:42 Antibiotics) [Sulfa(Sulfonamide Antibiotics)] - Home Medications Home Medications: Ambulatory Orders Atenolol [Tenormin -] 25 mg PO DAILY 12/26/14 Levothyroxine [Synthroid -] 50 mcg PO DAILY 12/26/14 Ferrous Sulfate [Feosol] 325 mg PO BID ud 12/27/14 Fenofibric Acid (Choline) [Trilipix] 135 mg PO DAILY 09/24/17 Sodium Phosphate/Na Biphos [Fleet Adult Rectal Enema -] 133 ml RC DAILY PRN 09/24/17 Vit A/Vitamin D3/E/Aloe V/Zinc [Periguard Ointment] 100 gm TP TID 09/24/17 Apixaban [Eliquis] 5 mg PO BID #90 tablet 09/30/17 Insulin Glargine,Hum.rec.anlog [Basaglar Kwikpen U-100] 18 unit SQ BID 03/06/18 Insulin Lispro [Humalog] 0 unit SQ ASDIR 03/06/18 Mirtazapine [Remeron Soltab -] 15 mg PO HS 03/06/18 Sennosides [Senna] 2 tab PO HS 03/06/18 Zinc Oxide 20% Topical Oint 1 applic .ROUTE DAILY 03/06/18 Levofloxacin [Levaquin] 500 mg PO DAILY #5 tablet 03/10/18 Family Medical History Family History: Unable to Obtain Review of Systems Unable to obtain ROS, reason: clinical condition Physical Examination Vital Signs: Vital Signs Temperature Pulse Rate 82 06/11/19 21:58 Respiratory Rate 14 06/11/19 21:58 Blood Pressure 95/50 L 06/11/19 20:42 O2 Sat by Pulse Oximetry (%) 98 06/11/19 21:58 Constitutional: Yes: Other (intubated- ventilator) Eyes: Yes: Conjunctiva Clear HENT: Yes: WNL, Atraumatic, Normocephalic Neck: Yes: Supple, Trachea Midline Cardiovascular: Yes: Regular Rate and Rhythm, Murmur (systolic), S1, S2 Respiratory: Yes: Diminished, Mechanically Ventilated, Rhonchi Gastrointestinal: Yes: Soft, Hypoactive Bowel Sounds ...Rectal Exam: Yes: Deferred Renal/: Yes: Coll[place] Present Breast(s): Yes: WNL Musculoskeletal: Yes: WNL Extremities: Yes: WNL Edema: No Peripheral Pulses WNL: Yes Psychiatric: Yes: Other (intubated- mechanical ventilator) Labs: CBC, BMP 06/11/19 20:57 06/11/19 20:57 Laboratory Results - last 24 hr 06/11/19 06/11/19 06/11/19 20:39 20:57 20:57 WBC RBC Hgb Hct MCV MCH MCHC RDW Plt Count MPV Absolute Neuts (auto) Neutrophils % Neutrophils % (Manual) Band Neutrophils % Lymphocytes % Lymphocytes % (Manual) Monocytes % Monocytes % (Manual) Eosinophils % Eosinophils % (Manual) Basophils % Basophils % (Manual) Myelocytes % (Man) Promyelocytes % (Man) Blast Cells % (Manual) Nucleated RBC % Metamyelocytes Hypochromia Platelet Estimate Platelet Comment Polychromasia Poikilocytosis Anisocytosis Microcytosis Macrocytosis PT with INR 21.00 H INR 1.77 H PTT (Actin FS) 27.9 Anticoagulation Therapy Puncture Site ABG pH ABG pCO2 at Pt Temp ABG pO2 at Pt Temp ABG HCO3 ABG O2 Sat (Measured) ABG O2 Content ABG Base Excess Garett Test VBG pH POC VBG pCO2 POC VBG pO2 VBG HCO3 VBG O2 Sat (Adrian) VBG Base Excess Patient On Oxygen O2 Delivery Device Oxygen Flow Rate Vent Mode Vent Rate Mechanical Rate PEEP Pressure Support Vent Sodium Potassium Chloride Carbon Dioxide Anion Gap BUN Creatinine Est GFR (CKD-EPI)AfAm Est GFR (CKD-EPI)NonAf POC Glucometer 186 Random Glucose Serum Osmolality Lactic Acid Calcium Total Bilirubin AST ALT Alkaline Phosphatase Creatine Kinase Creatine Kinase Index CK-MB (CK-2) Troponin I 0.46 H B-Natriuretic Peptide Total Protein Albumin Urine Color Urine Appearance Urine pH Ur Specific Marilla Urine Protein Urine Glucose (UA) Urine Ketones Urine Blood Urine Nitrite Urine Bilirubin Urine Urobilinogen Ur Leukocyte Esterase Urine WBC (Auto) Urine RBC (Auto) Urine Casts (Auto) U Pathogenic Cast Auto U Epithel Cells (Auto) Urine Bacteria (Auto) Urine Yeast (Auto) Urine Osmolality Ur Random Creatinine Stool Occult Blood Influenza A (Rapid) Influenza B (Rapid) Blood Type Antibody Screen 06/11/19 06/11/19 06/11/19 20:57 20:57 20:57 WBC 20.6 H RBC 2.79 L Hgb 8.7 L Hct 28.4 L MCV 102.0 H MCH 31.4 MCHC 30.7 L RDW 14.6 Plt Count 490 H D MPV 8.9 Absolute Neuts (auto) 17.3 H Neutrophils % 84.4 H D Neutrophils % (Manual) 75.5 Band Neutrophils % 3.1 Lymphocytes % 10.0 D Lymphocytes % (Manual) 11.2 Monocytes % 5.1 Monocytes % (Manual) 9 Eosinophils % 0.3 D Eosinophils % (Manual) 1.0 Basophils % 0.2 Basophils % (Manual) 0.0 Myelocytes % (Man) 0 Promyelocytes % (Man) 0 Blast Cells % (Manual) 0 Nucleated RBC % 0 Metamyelocytes 0 Hypochromia 1+ Platelet Estimate Increased Platelet Comment No clumping noted Polychromasia 1+ Poikilocytosis 0 Anisocytosis 1+ Microcytosis 0 Macrocytosis 1+ PT with INR INR PTT (Actin FS) Anticoagulation Therapy Puncture Site ABG pH ABG pCO2 at Pt Temp ABG pO2 at Pt Temp ABG HCO3 ABG O2 Sat (Measured) ABG O2 Content ABG Base Excess Garett Test VBG pH POC VBG pCO2 POC VBG pO2 VBG HCO3 VBG O2 Sat (Adrian) VBG Base Excess Patient On Oxygen O2 Delivery Device Oxygen Flow Rate Vent Mode Vent Rate Mechanical Rate PEEP Pressure Support Vent Sodium 161 H* Potassium 6.2 H* Chloride 134 H Carbon Dioxide 20 L Anion Gap 7 L BUN 126.6 H* Creatinine 3.0 H Est GFR (CKD-EPI)AfAm 17.27 Est GFR (CKD-EPI)NonAf 14.90 POC Glucometer Random Glucose 208 H Serum Osmolality Lactic Acid 2.1 H Calcium 9.3 Total Bilirubin 0.6 AST 33 ALT 24 Alkaline Phosphatase 75 Creatine Kinase 1314 H Creatine Kinase Index 0.1 CK-MB (CK-2) 1.1 Troponin I B-Natriuretic Peptide Total Protein 8.3 H Albumin 2.6 L Urine Color Urine Appearance Urine pH Ur Specific Marilla Urine Protein Urine Glucose (UA) Urine Ketones Urine Blood Urine Nitrite Urine Bilirubin Urine Urobilinogen Ur Leukocyte Esterase Urine WBC (Auto) Urine RBC (Auto) Urine Casts (Auto) U Pathogenic Cast Auto U Epithel Cells (Auto) Urine Bacteria (Auto) Urine Yeast (Auto) Urine Osmolality Ur Random Creatinine Stool Occult Blood Influenza A (Rapid) Influenza B (Rapid) Blood Type Antibody Screen 06/11/19 06/11/19 06/11/19 20:57 20:57 20:57 WBC RBC Hgb Hct MCV MCH MCHC RDW Plt Count MPV Absolute Neuts (auto) Neutrophils % Neutrophils % (Manual) Band Neutrophils % Lymphocytes % Lymphocytes % (Manual) Monocytes % Monocytes % (Manual) Eosinophils % Eosinophils % (Manual) Basophils % Basophils % (Manual) Myelocytes % (Man) Promyelocytes % (Man) Blast Cells % (Manual) Nucleated RBC % Metamyelocytes Hypochromia Platelet Estimate Platelet Comment Polychromasia Poikilocytosis Anisocytosis Microcytosis Macrocytosis PT with INR INR PTT (Actin FS) Anticoagulation Therapy Puncture Site ABG pH ABG pCO2 at Pt Temp ABG pO2 at Pt Temp ABG HCO3 ABG O2 Sat (Measured) ABG O2 Content ABG Base Excess Garett Test VBG pH POC VBG pCO2 POC VBG pO2 VBG HCO3 VBG O2 Sat (Adrian) VBG Base Excess Patient On Oxygen O2 Delivery Device Oxygen Flow Rate Vent Mode Vent Rate Mechanical Rate PEEP Pressure Support Vent Sodium Potassium Chloride Carbon Dioxide Anion Gap BUN Creatinine Est GFR (CKD-EPI)AfAm Est GFR (CKD-EPI)NonAf POC Glucometer Random Glucose Serum Osmolality Lactic Acid Calcium Total Bilirubin AST ALT Alkaline Phosphatase Creatine Kinase Creatine Kinase Index CK-MB (CK-2) Cancelled Troponin I B-Natriuretic Peptide Total Protein Albumin Urine Color Yellow Urine Appearance Turbid Urine pH 7.5 D Ur Specific Marilla 1.018 Urine Protein 3+ H Urine Glucose (UA) Negative Urine Ketones Trace H Urine Blood 1+ H Urine Nitrite Negative Urine Bilirubin Negative Urine Urobilinogen 0.2 Ur Leukocyte Esterase 3+ H Urine WBC (Auto) 38574 Urine RBC (Auto) 121.7 Urine Casts (Auto) 123 U Pathogenic Cast Auto Negative U Epithel Cells (Auto) >36 Urine Bacteria (Auto) Many Urine Yeast (Auto) Negative Urine Osmolality Ur Random Creatinine Stool Occult Blood Influenza A (Rapid) Influenza B (Rapid) Blood Type B POSITIVE Antibody Screen Negative 06/11/19 06/11/19 06/11/19 21:20 22:30 23:32 WBC RBC Hgb Hct MCV MCH MCHC RDW Plt Count MPV Absolute Neuts (auto) Neutrophils % Neutrophils % (Manual) Band Neutrophils % Lymphocytes % Lymphocytes % (Manual) Monocytes % Monocytes % (Manual) Eosinophils % Eosinophils % (Manual) Basophils % Basophils % (Manual) Myelocytes % (Man) Promyelocytes % (Man) Blast Cells % (Manual) Nucleated RBC % Metamyelocytes Hypochromia Platelet Estimate Platelet Comment Polychromasia Poikilocytosis Anisocytosis Microcytosis Macrocytosis PT with INR INR PTT (Actin FS) Anticoagulation Therapy Puncture Site ABG pH ABG pCO2 at Pt Temp ABG pO2 at Pt Temp ABG HCO3 ABG O2 Sat (Measured) ABG O2 Content ABG Base Excess Garett Test VBG pH 7.20 L POC VBG pCO2 45.0 POC VBG pO2 67.8 H VBG HCO3 17.0 L VBG O2 Sat (Adrian) 87.3 H VBG Base Excess -9.8 L Patient On Oxygen O2 Delivery Device Oxygen Flow Rate Vent Mode Vent Rate Mechanical Rate PEEP Pressure Support Vent Sodium Potassium Chloride Carbon Dioxide Anion Gap BUN Creatinine Est GFR (CKD-EPI)AfAm Est GFR (CKD-EPI)NonAf POC Glucometer Random Glucose Serum Osmolality Lactic Acid Calcium Total Bilirubin AST ALT Alkaline Phosphatase Creatine Kinase Creatine Kinase Index CK-MB (CK-2) Troponin I B-Natriuretic Peptide Total Protein Albumin Urine Color Urine Appearance Urine pH Ur Specific Marilla Urine Protein Urine Glucose (UA) Urine Ketones Urine Blood Urine Nitrite Urine Bilirubin Urine Urobilinogen Ur Leukocyte Esterase Urine WBC (Auto) Urine RBC (Auto) Urine Casts (Auto) U Pathogenic Cast Auto U Epithel Cells (Auto) Urine Bacteria (Auto) Urine Yeast (Auto) Urine Osmolality Ur Random Creatinine Stool Occult Blood Negative Influenza A (Rapid) Negative Influenza B (Rapid) Negative Blood Type Antibody Screen 06/11/19 06/12/19 06/12/19 23:32 00:15 00:15 WBC RBC Hgb Hct MCV MCH MCHC RDW Plt Count MPV Absolute Neuts (auto) Neutrophils % Neutrophils % (Manual) Band Neutrophils % Lymphocytes % Lymphocytes % (Manual) Monocytes % Monocytes % (Manual) Eosinophils % Eosinophils % (Manual) Basophils % Basophils % (Manual) Myelocytes % (Man) Promyelocytes % (Man) Blast Cells % (Manual) Nucleated RBC % Metamyelocytes Hypochromia Platelet Estimate Platelet Comment Polychromasia Poikilocytosis Anisocytosis Microcytosis Macrocytosis PT with INR INR PTT (Actin FS) Anticoagulation Therapy Puncture Site ABG pH ABG pCO2 at Pt Temp ABG pO2 at Pt Temp ABG HCO3 ABG O2 Sat (Measured) ABG O2 Content ABG Base Excess Garett Test VBG pH POC VBG pCO2 POC VBG pO2 VBG HCO3 VBG O2 Sat (Adrian) VBG Base Excess Patient On Oxygen O2 Delivery Device Oxygen Flow Rate Vent Mode Vent Rate Mechanical Rate PEEP Pressure Support Vent Sodium Potassium Chloride Carbon Dioxide Anion Gap BUN Creatinine Est GFR (CKD-EPI)AfAm Est GFR (CKD-EPI)NonAf POC Glucometer Random Glucose Serum Osmolality 390 H Lactic Acid 1.6 Calcium Total Bilirubin AST ALT Alkaline Phosphatase Creatine Kinase Creatine Kinase Index CK-MB (CK-2) Troponin I B-Natriuretic Peptide Total Protein Albumin Urine Color Urine Appearance Urine pH Ur Specific Marilla Urine Protein Urine Glucose (UA) Urine Ketones Urine Blood Urine Nitrite Urine Bilirubin Urine Urobilinogen Ur Leukocyte Esterase Urine WBC (Auto) Urine RBC (Auto) Urine Casts (Auto) U Pathogenic Cast Auto U Epithel Cells (Auto) Urine Bacteria (Auto) Urine Yeast (Auto) Urine Osmolality Ur Random Creatinine 48.0 Stool Occult Blood Influenza A (Rapid) Influenza B (Rapid) Blood Type Antibody Screen 06/12/19 06/12/19 06/12/19 00:15 00:15 01:15 WBC RBC Hgb Hct MCV MCH MCHC RDW Plt Count MPV Absolute Neuts (auto) Neutrophils % Neutrophils % (Manual) Band Neutrophils % Lymphocytes % Lymphocytes % (Manual) Monocytes % Monocytes % (Manual) Eosinophils % Eosinophils % (Manual) Basophils % Basophils % (Manual) Myelocytes % (Man) Promyelocytes % (Man) Blast Cells % (Manual) Nucleated RBC % Metamyelocytes Hypochromia Platelet Estimate Platelet Comment Polychromasia Poikilocytosis Anisocytosis Microcytosis Macrocytosis PT with INR INR PTT (Actin FS) Anticoagulation Therapy No Result Required. Puncture Site Right radial ABG pH 7.29 L ABG pCO2 at Pt Temp 34.8 L ABG pO2 at Pt Temp 221 H ABG HCO3 16.2 L ABG O2 Sat (Measured) 99.2 H ABG O2 Content 9.7 ABG Base Excess -9.1 L Garett Test Positive VBG pH POC VBG pCO2 POC VBG pO2 VBG HCO3 VBG O2 Sat (Adrian) VBG Base Excess Patient On Oxygen Yes O2 Delivery Device Ventilator Oxygen Flow Rate 50% Vent Mode A/c Vent Rate 14 Mechanical Rate No Result Required. PEEP 5.0 Pressure Support Vent 400 Sodium 162 H* Potassium 4.8 Chloride 139 H Carbon Dioxide 18 L Anion Gap 6 L BUN 107.0 H* Creatinine 2.6 H Est GFR (CKD-EPI)AfAm 20.53 Est GFR (CKD-EPI)NonAf 17.71 POC Glucometer Random Glucose 273 H Serum Osmolality Lactic Acid Calcium 7.4 L Total Bilirubin AST ALT Alkaline Phosphatase Creatine Kinase 1064 H Creatine Kinase Index 0.1 CK-MB (CK-2) 1.8 Troponin I 0.44 H B-Natriuretic Peptide 1875.2 H Total Protein Albumin Urine Color Urine Appearance Urine pH Ur Specific Marilla Urine Protein Urine Glucose (UA) Urine Ketones Urine Blood Urine Nitrite Urine Bilirubin Urine Urobilinogen Ur Leukocyte Esterase Urine WBC (Auto) Urine RBC (Auto) Urine Casts (Auto) U Pathogenic Cast Auto U Epithel Cells (Auto) Urine Bacteria (Auto) Urine Yeast (Auto) Urine Osmolality 557 Ur Random Creatinine Stool Occult Blood Influenza A (Rapid) Influenza B (Rapid) Blood Type Antibody Screen 06/12/19 02:09 WBC RBC Hgb Hct MCV MCH MCHC RDW Plt Count MPV Absolute Neuts (auto) Neutrophils % Neutrophils % (Manual) Band Neutrophils % Lymphocytes % Lymphocytes % (Manual) Monocytes % Monocytes % (Manual) Eosinophils % Eosinophils % (Manual) Basophils % Basophils % (Manual) Myelocytes % (Man) Promyelocytes % (Man) Blast Cells % (Manual) Nucleated RBC % Metamyelocytes Hypochromia Platelet Estimate Platelet Comment Polychromasia Poikilocytosis Anisocytosis Microcytosis Macrocytosis PT with INR INR PTT (Actin FS) Anticoagulation Therapy Puncture Site ABG pH ABG pCO2 at Pt Temp ABG pO2 at Pt Temp ABG HCO3 ABG O2 Sat (Measured) ABG O2 Content ABG Base Excess Garett Test VBG pH POC VBG pCO2 POC VBG pO2 VBG HCO3 VBG O2 Sat (Adrian) VBG Base Excess Patient On Oxygen O2 Delivery Device Oxygen Flow Rate Vent Mode Vent Rate Mechanical Rate PEEP Pressure Support Vent Sodium 162 H* Potassium 5.1 Chloride 141 H Carbon Dioxide 18 L Anion Gap 4 L BUN 97.8 H Creatinine 2.4 H Est GFR (CKD-EPI)AfAm 22.62 Est GFR (CKD-EPI)NonAf 19.51 POC Glucometer Random Glucose 193 H Serum Osmolality Lactic Acid Calcium 7.8 L Total Bilirubin AST ALT Alkaline Phosphatase Creatine Kinase Creatine Kinase Index CK-MB (CK-2) Troponin I B-Natriuretic Peptide Total Protein Albumin Urine Color Urine Appearance Urine pH Ur Specific Marilla Urine Protein Urine Glucose (UA) Urine Ketones Urine Blood Urine Nitrite Urine Bilirubin Urine Urobilinogen Ur Leukocyte Esterase Urine WBC (Auto) Urine RBC (Auto) Urine Casts (Auto) U Pathogenic Cast Auto U Epithel Cells (Auto) Urine Bacteria (Auto) Urine Yeast (Auto) Urine Osmolality Ur Random Creatinine Stool Occult Blood Influenza A (Rapid) Influenza B (Rapid) Blood Type Antibody Screen Intake & Output 06/09/19 06/10/19 06/11/19 06/12/19 23:59 23:59 23:59 23:59 Intake Total 2100 Balance 2100 Weight 72.575 kg Current Medications Generic Name Dose Route Start Last Admin Trade Name Marino PRN Reason Stop Dose Admin Chlorhexidine Gluconate 1 applic 06/12/19 22:00 Hibiclens For Decolonization - TP HS LENI Propofol 1,000,000 mcg in 100 mls @ 2.177 mls/hr 06/11/19 21:45 06/11/19 22:13 Diprivan - IVPB 5 mcg/kg/min TITR LENI 2.177 mls/hr Administration Protocol 5 MCG/KG/MIN Cefepime HCl 2 gm in 50 mls @ 100 mls/hr 06/12/19 00:45 Maxipime 2gm Ivpb (Premix) IVPB BID LENI Protocol Cefepime HCl 2 gm/ Dextrose 50 mls @ 100 mls/hr 06/12/19 00:45 06/12/19 01:26 IVPB 06/12/19 22:29 100 mls/hr BID LENI Administration Protocol Sodium Chloride 1,000 mls @ 150 mls/hr 06/12/19 02:41 06/12/19 02:43 1/2 Normal Saline IV 150 mls/hr ASDIR LENI Administration Insulin Aspart 1 vial 06/12/19 07:00 Novolog Vial Sliding Scale - SQ TIDAC [facility] Protocol Mupirocin 1 applic 06/12/19 10:00 Bactroban Ointment (For Decolonization) - NS 06/17/19 09:59 BID LENI Pantoprazole Sodium 40 mg 06/12/19 10:00 Protonix Iv IVPUSH BID [facility] Imaging - Results Chest X-ray: Report Reviewed, Image Reviewed EKG: Image Reviewed Problem List - Problems (1) Acute respiratory distress Code(s): R06.03 - ACUTE RESPIRATORY DISTRESS (2) Sepsis Code(s): A41.9 - SEPSIS, UNSPECIFIED ORGANISM (3) UTI (urinary tract infection) Code(s): N39.0 - URINARY TRACT INFECTION, SITE NOT SPECIFIED Qualifiers: Urinary tract infection type: site unspecified Hematuria presence: with hematuria Qualified Code(s): N39.0 - Urinary tract infection, site not specified; R31.9 - Hematuria, unspecified (4) Elevated troponin I level Code(s): R74.8 - ABNORMAL LEVELS OF OTHER SERUM ENZYMES (5) Hyperkalemia Code(s): E87.5 - HYPERKALEMIA (6) Hypernatremia Code(s): E87.0 - HYPEROSMOLALITY AND HYPERNATREMIA (7) CKD (chronic kidney disease) stage 3, GFR 30-59 ml/min Code(s): N18.3 - CHRONIC KIDNEY DISEASE, STAGE 3 (MODERATE) (8) Chronic diastolic CHF (congestive heart failure) Code(s): I50.32 - CHRONIC DIASTOLIC (CONGESTIVE) HEART FAILURE (9) Dementia Code(s): F03.90 - UNSPECIFIED DEMENTIA WITHOUT BEHAVIORAL DISTURBANCE (10) HTN (hypertension) Code(s): I10 - ESSENTIAL (PRIMARY) HYPERTENSION (11) IDDM (insulin dependent diabetes mellitus) Code(s): E11.9 - TYPE 2 DIABETES MELLITUS WITHOUT COMPLICATIONS; Z79.4 - ASSISTED (CURRENT) USE OF INSULIN Assessment/Plan This is a 73 y/o woman from [facility] with a PMHx of HTN, DM, Hypothyriodism, NSTEMI (2018), Functional Quadriplegia. Admitted to ICU for Acute Respiratory Failure, Sepsis, UTI, Hypernatremia, Hyperkalemia, Troponinemia for further evaluation of their emergent condition. Plan: Admit ICU r/o ARDS vs Pneumonia vs COVID Blood Cultures-pending Urine Culture-pending COVID- pending Influenza neg A+B qSOFA 3 Sepsis Criteria Met IV: T Max 101.1, WBC 20.6, BUN 126.6, Lactic Acid 2.1 Zosyn given in ED Cefepime initiated by ICU resident, will continue for broad spectrum coverage Isolation Precautions: Airborne, Droplet Continue cardiac monitoring Hyperkalemia Protocol given in ED 6.2~4.8 Troponinemia likely due to demand ischemia Serial Enzymes Appreciate Cardiology consult Free Water Deficit 4.9L Serial BMPs O2- mechanical ventilation: TV 500, R 14, Fio2 50%, PEEP 5 ABG- 7.29/34.8/221/16.2/99 Appreciate Therapy Aide consult Appreciate ID consult Appreciate Nephrology consult Monitor CBC, BMP Maintain MAP> 65 FEN- Replete lytes prn, NPO DVT ppx- OOB, SCDs, Heparin SQ Code Status:Full Code Dispo: Requires Inpatient Care Visit type - Emergency Visit Emergency Visit: Yes ED Registration Date: 06/11/19 Care time: The patient presented to the Emergency Department on the above date and was hospitalized for further evaluation of their emergent condition. - New Patient This patient is new to me today: Yes Date on this admission: 06/11/19 - Critical Care Critical Care patient: Yes Total Critical Care Time (in minutes): 40 Critical Care Statement: The care of this patient involved high complexity decision making to prevent further life threatening deterioration of the patient's condition and/or to evaluate & treat vital organ system(s) failure or risk of failure.
[2019-06-11] MEDS ORDERED: PANTOPRAZOLE SODIUM 40 MG VIAL IVPUSH ONE (23:12)
[2019-06-11] MEDS ORDERED: SUCCINYLCHOLINE CHLORIDE 200 MG/10 ML VIAL IVPUSH ONE (23:14)
[2019-06-11] MEDS ORDERED: ACETAMINOPHEN 1000 MG/100 ML VIAL (NON FORMULARY) IVPB ONE (23:14)
[2019-06-11 23:18] LABS: URINE BACTERIA MANY /hpf (NEGATIVE)
[2019-06-11] MEDS ORDERED: PANTOPRAZOLE SODIUM 40 MG VIAL ONE (23:21)
[2019-06-11] MEDS ORDERED: CALCIUM GLUCONATE 10% - 1,000 MG/10 ML VIAL IVPUSH ONE (23:33)
[2019-06-11] MEDS ORDERED: CALCIUM CHLORIDE 1 GM/10 ML *DISP.SYRIN ONE (23:41)
[2019-06-11 23:48] LABS: VENOUS PH 7.2 (7.31-7.41); VENOUS PO2 67.8 mmHg (28-48)
--- NOTE | 2019-06-12 00:46 | CONSULT ---
Consultation: REQUESTING PROVIDER: Dr. Forde CONSULT REQUEST: We have been asked to medically evaluate this patient for (specify). HISTORY OF PRESENT ILLNESS: Patient is a 73 year old female with PMH of functional quadriplegia, DM2, HTN, hypothyroidism, NSTEMI 2018 who was BIBEMS from [facility] with AMS, tachypneic, and fevers. At baseline, pt is alert and oriented x3. Has chronic denis. En route to ED, pt was satting 97% on 4L NC. On arrival, pt was altered and unable to provide history or ROS. Rectal temp of 101.1. Pt was tachypneic in 50s, successfully intubated by ED. When OG tube was placed, there was coffee ground and dark material in oropharynx. On initial workup, pt had leukocytosis of 20.6, lactic acid of 2.1. BMP significant for Na 161, K 6.1, BUN 126.6, Cr 3.0. EKG with normal sinus at 97 bpm, left axis deviation, flat T waves in V1-V6, without T wave inversions that were present in most recent EKG from 2 years ago. VT 130, QRS 80, QTc 497. UA with massive bacteria, 3+ leukocyte esterase, trace ketones, 1+ blood. CXR showed no acute pathology. REVIEW OF SYSTEMS: CONSTITUTIONAL: fevers Absent: chills, diaphoresis, generalized weakness, malaise, loss of appetite, weight change HEENT: Absent: rhinorrhea, nasal congestion, throat pain, throat swelling, difficulty swallowing, mouth swelling, ear pain, eye pain, visual changes CARDIOVASCULAR: Absent: chest pain, syncope, palpitations, irregular heart rate, lightheadedn ess, peripheral edema RESPIRATORY: shortness of breath Absent: cough, dyspnea with exertion, orthopnea, wheezing, stridor, hemoptysis GASTROINTESTINAL: Absent: abdominal pain, abdominal distension, nausea, vomiting, diarrhea, constipation, melena, hematochezia GENITOURINARY: Absent: dysuria, frequency, urgency, hesitancy, hematuria, flank pain, genital pain MUSCULOSKELETAL: Absent: myalgia, arthralgia, joint swelling, back pain, neck pain SKIN: Absent: rash, itching, pallor HEMATOLOGIC/IMMUNOLOGIC: Absent: easy bleeding, easy bruising, lymphadenopathy, frequent infections ENDOCRINE: Absent: unexplained weight gain, unexplained weight loss, heat intolerance, cold intolerance NEUROLOGIC: mental status changes Absent: headache, focal weakness or paresthesias, dizziness, unsteady gait, seizure, bladder or bowel incontinence PSYCHIATRIC: Absent: anxiety, depression, suicidal or homicidal ideation, hallucinations. PHYSICAL EXAMINATION Vital Signs - 24 hr 06/11/19 06/11/19 06/11/19 20:42 20:50 21:15 Temperature 101.1 F H Pulse Rate 98 H Respiratory 20 14 Rate Blood Pressure 95/50 L O2 Sat by Pulse 100 Oximetry (%) 06/11/19 21:58 Temperature Pulse Rate 82 Respiratory 14 Rate Blood Pressure O2 Sat by Pulse 98 Oximetry (%) Did not perform physical exam to minimize exposure to patient. Please refer to Attending's note for physical exam. Laboratory Results - last 24 hr CBC, BMP 06/11/19 20:57 06/11/19 20:57 Active Medications Chlorhexidine Gluconate (Hibiclens For Decolonization -) 1 applic TP HS LENI Propofol (Diprivan -) 1,000,000 mcg in 100 mls @ 2.177 mls/hr IVPB TITR LENI; Protocol Last Admin: 06/11/19 22:13 Dose: 5 mcg/kg/min, 2.177 mls/hr Documented by: Sodium Chloride (Normal Saline -) 2,177 mls @ 1,088.5 mls/hr 30 ml/kg infuse over 2 hr (2177 ml) IV ONCE ONE Stop: 06/12/19 00:22 Last Admin: 06/11/19 22:44 Dose: 1,088.5 mls/hr Documented by: Sodium Chloride (Normal Saline -) 1,000 mls @ 125 mls/hr IV ASDIR [facility] Last Admin: 06/11/19 23:08 Dose: 125 mls/hr Documented by: Insulin Aspart (Novolog Vial Sliding Scale -) 0 vial SQ TIDAC [facility]; Protocol Mupirocin (Bactroban Ointment (For Decolonization) -) 1 applic NS BID LENI Stop: 06/17/19 09:59 ASSESSMENT/PLAN: Patient is a 73 year old female with PMH of functional quadriplegia, DM2, HTN, hypothyroidism, NSTEMI 2018 who was BIBEMS from [facility] with AMS, tachypneic, and fevers. Admitted to ICU for respiratory distress and urosepsis. Neuro -Intubated and sedated on propofol -Baseline: A&O x3 Cardiovascular -Hx of HTN and NSTEMI in 2018 -Hemodynamically stable, monitor closely -Elevated troponin: 0.46 (baseline~0.3) -EKG: NS at 97 bpm, left axis deviation, flat T waves in V1-V6, without TWI that were present in most recent EKG from 2 years ago -Spoke with cardio (Dr. Schmidt): likely non-cardiac in nature, will trend. No meds for now Pulmonary -Respiratory distress: intubated, ventilated -CXR: no acute pathology -COVID-19 pending -Respiratory panel pending -Rapid flu negative Renal -Urosepsis -Received zosyn in ED -Cont cefepime 2gm Q12H -UA: many bacteria, 3+ LE, trace ketones, 1+ blood -F/u urine cx -Hypernatremia -Free water deficit: 4.9L -Hyperkalemia -K: 6.1 -No EKG changes -Received 10units insulin, D50, calcium gluconate - -ODESSA Cr: 3.0 (basline ~1.3) -Monitor BMP Q4H -Nephrology consulted (Dr. Muniz), f/u recs -Urine studies ordered GI -Pt had coffee ground emesis and dark material in oropharynx with OG tube shyann cement -FOBT negative -Ppx with protonix 40mg BID Heme -Macrocytic anemia -Hgb: 8.7 (baseline ~9-10) -MCV: 102 -Vit B12 and folate ordered ID -Urosepsis -Received zosyn in ED -Past cx: pseudomonas (aztreonam resistant), klebsiella, e coli -Past MRSA positive -Cont cefepime 2gm Q12H -ID consulted (Dr. Magana) -F/u urine, blood and sputum cx -F/u respiratory, flu, COVID-19 FEN - -Hypernatremia, hyperkalemia --closely monitor lytes Q4H -NPO Ppx -DVT: SCDs -GI: protonix Patient is FULL CODE Dispo: We will continue to follow the patient. Thank you for this consultative opportunity. Visit type - Emergency Visit Emergency Visit: No - New Patient This patient is new to me today: No - Critical Care Critical Care patient: Yes Total Critical Care Time (in minutes): 45 Critical Care Statement: The care of this patient involved high complexity decision making to prevent further life threatening deterioration of the patient's condition and/or to evaluate & treat vital organ system(s) failure or risk of failure. ATTENDING PHYSICIAN STATEMENT I saw and evaluated the patient. I reviewed the resident's note and discussed the case with the resident. I agree with the resident's findings and plan as documented. SUBJECTIVE: OBJECTIVE: ASSESSMENT AND PLAN:
[2019-06-12] MEDS ORDERED: SODIUM CHLORIDE 0.45% 1,000 ML IV SCH (01:00)
[2019-06-12] MEDS ORDERED: CEFEPIME 2 GM/100 ML BAG IVPB ONE (01:19)
[2019-06-12] MEDS: CEFEPIME 2 GM in DEXTROSE 5%-WATER - 50 ML IVPB SCH ×2 (01:26→11:29)
[2019-06-12 01:27] LABS: ARTERIAL BLD GAS O2 SATURATION 99.2 % (95-98); ARTERIAL BLOOD GAS BASE EXCESS -9.1 meq/l (-2-2); ARTERIAL BLOOD GAS PCO2 34.8 mmHg (35-45); ARTERIAL BLOOD GAS PO2 221 mmHg (80-100); ARTERIAL BLOOD GAS pH 7.29 (7.35-7.45)
[2019-06-12 01:30] LABS: ALLENS TEST POSITIVE
[2019-06-12 01:52] LABS: N-TERMINAL BNP 1875.2 pg/ml (5-125)
[2019-06-12 02:24] LABS: CREATININE 2.6 mg/dL (0.55-1.3)
[2019-06-12 02:25] LABS: CALCIUM 7.4 mg/dL (8.5-10.1); POTASSIUM 4.8 mmol/L (3.5-5.1)
[2019-06-12] MEDS: SODIUM CHLORIDE 0.45% 1,000 ML IV SCH (02:43)
[2019-06-12 03:03] LABS: BLOOD UREA NITROGEN 97.8 mg/dL (7-18); CALCIUM 7.8 mg/dL (8.5-10.1); CREATININE 2.4 mg/dL (0.55-1.3); POTASSIUM 5.1 mmol/L (3.5-5.1)
[2019-06-12 06:16] LABS: ARTERIAL BLD GAS O2 SATURATION 99.5 % (95-98); ARTERIAL BLOOD GAS BASE EXCESS -7.9 meq/l (-2-2); ARTERIAL BLOOD GAS PO2 226 mmHg (80-100); ARTERIAL BLOOD GAS pH 7.33 (7.35-7.45); BASO % 0.6 % (0-2.0); EOS % 0.7 % (0-4.5); HEMATOCRIT 22.1 % (32.4-45.2); LYMPH % 15.2 % (8-40); MCHC 31.1 g/dl (32.0-36.0); MEAN CELL VOLUME 103.2 fl (80-96); MEAN PLT VOLUME 8.3 fl (7.5-11.1); MONO % 5.6 % (3.8-10.2); NEUT % 77.9 % (42.8-82.8); PLATELET COUNT 378 K/MM3 (134-434); RBC 2.14 M/mm3 (3.60-5.2); RDW 14.7 % (11.6-15.6)
[2019-06-12 06:20] LABS: ALLENS TEST POSITIVE
[2019-06-12 06:30] LABS: INR 1.66 (0.83-1.09); PROTHROMBIN TIME (PATIENT) 19.7 SEC (9.7-13.0)
[2019-06-12 06:32] LABS: ACTIVATED PTT 28.2 SECONDS (25.2-36.5)
[2019-06-12 06:35] LABS: HEMOGLOBIN 6.9 GM/dL (10.7-15.3)
[2019-06-12 07:42] LABS: ALBUMIN 1.8 g/dl (3.4-5.0); BILIRUBIN,TOTAL 0.2 mg/dL (0.2-1); CALCIUM 8.1 mg/dL (8.5-10.1); CREATININE 2.4 mg/dL (0.55-1.3); MAGNESIUM 3.2 mg/dL (1.8-2.4); PHOSPHOROUS 3.7 mg/dL (2.5-4.9); POTASSIUM 5.4 mmol/L (3.5-5.1)
[2019-06-12] MEDS ORDERED: MUPIROCIN 2% TOPICAL OINTMENT FOR DECOLONIZATION NS SCH (10:00)
[2019-06-12] MEDS: INSULIN SLIDING SCALE (NOVOLOG) 1 VIAL SQ SCH ×3 (10:37→17:48)
[2019-06-12] MEDS ORDERED: PANTOPRAZOLE SODIUM 40 MG/100 ML BAG IVPB ONE (10:42)
[2019-06-12] MEDS: PANTOPRAZOLE SODIUM 40 MG VIAL IVPUSH SCH ×2 (10:47→23:13)
--- NOTE | 2019-06-12 11:26 | EKG ---
Test Reason : Blood Pressure : / mmHG Vent. Rate : 097 BPM Atrial Rate : 097 BPM P-R Int : 130 ms QRS Dur : 080 ms QT Int : 392 ms P-R-T Axes : 054 -64 100 degrees QTc Int : 497 ms NORMAL SINUS RHYTHM LEFT AXIS DEVIATION NONSPECIFIC ST AND T WAVE ABNORMALITY ABNORMAL ECG WHEN COMPARED WITH ECG OF 06-MAR-2018 17:55, SIGNIFICANT CHANGES HAVE OCCURRED Confirmed by MD Olman, Atif ([id number]) on 06/12/2019 11:25:52 AM Referred By: Confirmed By:Atif Thurman MD
--- NOTE | 2019-06-12 11:34 | PN ---
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 (short form) - Note 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: Events noted pt under isolation intubated Vital Signs - 24 hr 06/11/19 06/11/19 06/11/19 20:42 20:50 21:00 Temperature 101.1 F H Pulse Rate 98 H Pulse Rate [ 105 H Apical] Respiratory 20 24 H Rate Blood Pressure 95/50 L Blood Pressure 156/67 [Left Arm] O2 Sat by Pulse 100 100 Oximetry (%) 06/11/19 06/11/19 06/11/19 21:15 21:50 21:58 Temperature Pulse Rate 82 Pulse Rate [ 92 H Apical] Respiratory 14 16 14 Rate Blood Pressure Blood Pressure 116/56 L [Left Arm] O2 Sat by Pulse 100 98 Oximetry (%) 06/12/19 06/12/19 06/12/19 00:20 02:30 04:12 Temperature Pulse Rate Pulse Rate [ 79 63 Apical] Respiratory 14 15 14 Rate Blood Pressure Blood Pressure 102/54 L 99/52 L [Left Arm] O2 Sat by Pulse 100 100 Oximetry (%) 06/12/19 06/12/19 06/12/19 04:42 06:34 08:00 Temperature Pulse Rate 69 Pulse Rate [ 64 60 Apical] Respiratory 16 14 Rate Blood Pressure Blood Pressure 109/54 L 92/48 L [Left Arm] O2 Sat by Pulse 100 100 100 Oximetry (%) Current Medications Generic Name Dose Route Start Last Admin Trade Name Freq PRN Reason Stop Dose Admin Chlorhexidine Gluconate 1 applic 06/12/19 22:00 Hibiclens For Decolonization - TP HS LENI Propofol 1,000,000 mcg in 100 mls @ 2.177 mls/hr 06/11/19 21:45 06/11/19 22:13 Diprivan - IVPB 5 mcg/kg/min TITR LENI 2.177 mls/hr Administration Protocol 5 MCG/KG/MIN Cefepime HCl 2 gm in 50 mls @ 100 mls/hr 06/12/19 00:45 Maxipime 2gm Ivpb (Premix) IVPB BID LENI Protocol Cefepime HCl 2 gm/ Dextrose 50 mls @ 100 mls/hr 06/12/19 00:45 06/12/19 11:29 IVPB 06/12/19 22:29 100 mls/hr BID LENI Administration Protocol Sodium Chloride 1,000 mls @ 150 mls/hr 06/12/19 02:41 06/12/19 02:43 1/2 Normal Saline IV 150 mls/hr ASDIR LENI Administration Insulin Aspart 1 vial 06/12/19 07:00 06/12/19 11:30 Novolog Vial Sliding Scale - SQ Not Given TIDAC [facility] Protocol Mupirocin 1 applic 06/12/19 10:00 Bactroban Ointment (For Decolonization) - NS 06/17/19 09:59 BID LENI Pantoprazole Sodium 40 mg 06/12/19 10:00 06/12/19 10:47 Protonix Iv IVPUSH 40 mg BID LENI Administration Laboratory Results - last 24 hr 06/11/19 06/11/19 06/11/19 20:39 20:57 20:57 WBC RBC Hgb Hct MCV MCH MCHC RDW Plt Count MPV Absolute Neuts (auto) Neutrophils % Neutrophils % (Manual) Band Neutrophils % Lymphocytes % Lymphocytes % (Manual) Monocytes % Monocytes % (Manual) Eosinophils % Eosinophils % (Manual) Basophils % Basophils % (Manual) Myelocytes % (Man) Promyelocytes % (Man) Blast Cells % (Manual) Nucleated RBC % Metamyelocytes Hypochromia Platelet Estimate Platelet Comment Polychromasia Poikilocytosis Anisocytosis Microcytosis Macrocytosis PT with INR 21.00 H INR 1.77 H PTT (Actin FS) 27.9 Anticoagulation Therapy Puncture Site ABG pH ABG pCO2 at Pt Temp ABG pO2 at Pt Temp ABG HCO3 ABG O2 Sat (Measured) ABG O2 Content ABG Base Excess Garett Test VBG pH POC VBG pCO2 POC VBG pO2 VBG HCO3 VBG O2 Sat (Adrian) VBG Base Excess Patient On Oxygen O2 Delivery Device Oxygen Flow Rate Vent Mode Vent Rate Mechanical Rate PEEP Pressure Support Vent Sodium Potassium Chloride Carbon Dioxide Anion Gap BUN Creatinine Est GFR (CKD-EPI)AfAm Est GFR (CKD-EPI)NonAf POC Glucometer 186 Random Glucose Hemoglobin A1c % Serum Osmolality Lactic Acid Calcium Phosphorus Magnesium Total Bilirubin AST ALT Alkaline Phosphatase Creatine Kinase Creatine Kinase Index CK-MB (CK-2) Troponin I 0.46 H B-Natriuretic Peptide Total Protein Albumin Vitamin B12 Serum Folate TSH Urine Color Urine Appearance Urine pH Ur Specific [place] Urine Protein Urine Glucose (UA) Urine Ketones Urine Blood Urine Nitrite Urine Bilirubin Urine Urobilinogen Ur Leukocyte Esterase Urine WBC (Auto) Urine RBC (Auto) Urine Casts (Auto) U Pathogenic Cast Auto U Epithel Cells (Auto) Urine Bacteria (Auto) Urine Yeast (Auto) Urine Osmolality Ur Random Creatinine Ur Random Sodium Stool Occult Blood Influenza A (Rapid) Influenza B (Rapid) Blood Type Antibody Screen Crossmatch 06/11/19 06/11/19 06/11/19 20:57 20:57 20:57 WBC 20.6 H RBC 2.79 L Hgb 8.7 L Hct 28.4 L MCV 102.0 H MCH 31.4 MCHC 30.7 L RDW 14.6 Plt Count 490 H D MPV 8.9 Absolute Neuts (auto) 17.3 H Neutrophils % 84.4 H D Neutrophils % (Manual) 75.5 Band Neutrophils % 3.1 Lymphocytes % 10.0 D Lymphocytes % (Manual) 11.2 Monocytes % 5.1 Monocytes % (Manual) 9 Eosinophils % 0.3 D Eosinophils % (Manual) 1.0 Basophils % 0.2 Basophils % (Manual) 0.0 Myelocytes % (Man) 0 Promyelocytes % (Man) 0 Blast Cells % (Manual) 0 Nucleated RBC % 0 Metamyelocytes 0 Hypochromia 1+ Platelet Estimate Increased Platelet Comment No clumping noted Polychromasia 1+ Poikilocytosis 0 Anisocytosis 1+ Microcytosis 0 Macrocytosis 1+ PT with INR INR PTT (Actin FS) Anticoagulation Therapy Puncture Site ABG pH ABG pCO2 at Pt Temp ABG pO2 at Pt Temp ABG HCO3 ABG O2 Sat (Measured) ABG O2 Content ABG Base Excess Garett Test VBG pH POC VBG pCO2 POC VBG pO2 VBG HCO3 VBG O2 Sat (Adrian) VBG Base Excess Patient On Oxygen O2 Delivery Device Oxygen Flow Rate Vent Mode Vent Rate Mechanical Rate PEEP Pressure Support Vent Sodium 161 H* Potassium 6.2 H* Chloride 134 H Carbon Dioxide 20 L Anion Gap 7 L BUN 126.6 H* Creatinine 3.0 H Est GFR (CKD-EPI)AfAm 17.27 Est GFR (CKD-EPI)NonAf 14.90 POC Glucometer Random Glucose 208 H Hemoglobin A1c % Serum Osmolality Lactic Acid 2.1 H Calcium 9.3 Phosphorus Magnesium Total Bilirubin 0.6 AST 33 ALT 24 Alkaline Phosphatase 75 Creatine Kinase 1314 H Creatine Kinase Index 0.1 CK-MB (CK-2) 1.1 Troponin I B-Natriuretic Peptide Total Protein 8.3 H Albumin 2.6 L Vitamin B12 Serum Folate TSH Urine Color Urine Appearance Urine pH Ur Specific [place] Urine Protein Urine Glucose (UA) Urine Ketones Urine Blood Urine Nitrite Urine Bilirubin Urine Urobilinogen Ur Leukocyte Esterase Urine WBC (Auto) Urine RBC (Auto) Urine Casts (Auto) U Pathogenic Cast Auto U Epithel Cells (Auto) Urine Bacteria (Auto) Urine Yeast (Auto) Urine Osmolality Ur Random Creatinine Ur Random Sodium Stool Occult Blood Influenza A (Rapid) Influenza B (Rapid) Blood Type Antibody Screen Crossmatch 06/11/19 06/11/19 06/11/19 20:57 20:57 20:57 WBC RBC Hgb Hct MCV MCH MCHC RDW Plt Count MPV Absolute Neuts (auto) Neutrophils % Neutrophils % (Manual) Band Neutrophils % Lymphocytes % Lymphocytes % (Manual) Monocytes % Monocytes % (Manual) Eosinophils % Eosinophils % (Manual) Basophils % Basophils % (Manual) Myelocytes % (Man) Promyelocytes % (Man) Blast Cells % (Manual) Nucleated RBC % Metamyelocytes Hypochromia Platelet Estimate Platelet Comment Polychromasia Poikilocytosis Anisocytosis Microcytosis Macrocytosis PT with INR INR PTT (Actin FS) Anticoagulation Therapy Puncture Site ABG pH ABG pCO2 at Pt Temp ABG pO2 at Pt Temp ABG HCO3 ABG O2 Sat (Measured) ABG O2 Content ABG Base Excess Garett Test VBG pH POC VBG pCO2 POC VBG pO2 VBG HCO3 VBG O2 Sat (Adrian) VBG Base Excess Patient On Oxygen O2 Delivery Device Oxygen Flow Rate Vent Mode Vent Rate Mechanical Rate PEEP Pressure Support Vent Sodium Potassium Chloride Carbon Dioxide Anion Gap BUN Creatinine Est GFR (CKD-EPI)AfAm Est GFR (CKD-EPI)NonAf POC Glucometer Random Glucose Hemoglobin A1c % Serum Osmolality Lactic Acid Calcium Phosphorus Magnesium Total Bilirubin AST ALT Alkaline Phosphatase Creatine Kinase Creatine Kinase Index CK-MB (CK-2) Cancelled Troponin I B-Natriuretic Peptide Total Protein Albumin Vitamin B12 Serum Folate TSH Urine Color Yellow Urine Appearance Turbid Urine pH 7.5 D Ur Specific [place] 1.018 Urine Protein 3+ H Urine Glucose (UA) Negative Urine Ketones Trace H Urine Blood 1+ H Urine Nitrite Negative Urine Bilirubin Negative Urine Urobilinogen 0.2 Ur Leukocyte Esterase 3+ H Urine WBC (Auto) 14980 Urine RBC (Auto) 121.7 Urine Casts (Auto) 123 U Pathogenic Cast Auto Negative U Epithel Cells (Auto) >36 Urine Bacteria (Auto) Many Urine Yeast (Auto) Negative Urine Osmolality Ur Random Creatinine Ur Random Sodium Stool Occult Blood Influenza A (Rapid) Influenza B (Rapid) Blood Type B POSITIVE Antibody Screen Negative Crossmatch 06/11/19 06/11/19 06/11/19 21:20 22:30 23:32 WBC RBC Hgb Hct MCV MCH MCHC RDW Plt Count MPV Absolute Neuts (auto) Neutrophils % Neutrophils % (Manual) Band Neutrophils % Lymphocytes % Lymphocytes % (Manual) Monocytes % Monocytes % (Manual) Eosinophils % Eosinophils % (Manual) Basophils % Basophils % (Manual) Myelocytes % (Man) Promyelocytes % (Man) Blast Cells % (Manual) Nucleated RBC % Metamyelocytes Hypochromia Platelet Estimate Platelet Comment Polychromasia Poikilocytosis Anisocytosis Microcytosis Macrocytosis PT with INR INR PTT (Actin FS) Anticoagulation Therapy Puncture Site ABG pH ABG pCO2 at Pt Temp ABG pO2 at Pt Temp ABG HCO3 ABG O2 Sat (Measured) ABG O2 Content ABG Base Excess Garett Test VBG pH 7.20 L POC VBG pCO2 45.0 POC VBG pO2 67.8 H VBG HCO3 17.0 L VBG O2 Sat (Adrian) 87.3 H VBG Base Excess -9.8 L Patient On Oxygen O2 Delivery Device Oxygen Flow Rate Vent Mode Vent Rate Mechanical Rate PEEP Pressure Support Vent Sodium Potassium Chloride Carbon Dioxide Anion Gap BUN Creatinine Est GFR (CKD-EPI)AfAm Est GFR (CKD-EPI)NonAf POC Glucometer Random Glucose Hemoglobin A1c % Serum Osmolality Lactic Acid Calcium Phosphorus Magnesium Total Bilirubin AST ALT Alkaline Phosphatase Creatine Kinase Creatine Kinase Index CK-MB (CK-2) Troponin I B-Natriuretic Peptide Total Protein Albumin Vitamin B12 Serum Folate TSH Urine Color Urine Appearance Urine pH Ur Specific [place] Urine Protein Urine Glucose (UA) Urine Ketones Urine Blood Urine Nitrite Urine Bilirubin Urine Urobilinogen Ur Leukocyte Esterase Urine WBC (Auto) Urine RBC (Auto) Urine Casts (Auto) U Pathogenic Cast Auto U Epithel Cells (Auto) Urine Bacteria (Auto) Urine Yeast (Auto) Urine Osmolality Ur Random Creatinine Ur Random Sodium Stool Occult Blood Negative Influenza A (Rapid) Negative Influenza B (Rapid) Negative Blood Type Antibody Screen Crossmatch 06/11/19 06/12/19 06/12/19 23:32 00:15 00:15 WBC RBC Hgb Hct MCV MCH MCHC RDW Plt Count MPV Absolute Neuts (auto) Neutrophils % Neutrophils % (Manual) Band Neutrophils % Lymphocytes % Lymphocytes % (Manual) Monocytes % Monocytes % (Manual) Eosinophils % Eosinophils % (Manual) Basophils % Basophils % (Manual) Myelocytes % (Man) Promyelocytes % (Man) Blast Cells % (Manual) Nucleated RBC % Metamyelocytes Hypochromia Platelet Estimate Platelet Comment Polychromasia Poikilocytosis Anisocytosis Microcytosis Macrocytosis PT with INR INR PTT (Actin FS) Anticoagulation Therapy Puncture Site ABG pH ABG pCO2 at Pt Temp ABG pO2 at Pt Temp ABG HCO3 ABG O2 Sat (Measured) ABG O2 Content ABG Base Excess Garett Test VBG pH POC VBG pCO2 POC VBG pO2 VBG HCO3 VBG O2 Sat (Adrian) VBG Base Excess Patient On Oxygen O2 Delivery Device Oxygen Flow Rate Vent Mode Vent Rate Mechanical Rate PEEP Pressure Support Vent Sodium Potassium Chloride Carbon Dioxide Anion Gap BUN Creatinine Est GFR (CKD-EPI)AfAm Est GFR (CKD-EPI)NonAf POC Glucometer Random Glucose Hemoglobin A1c % Serum Osmolality 390 H Lactic Acid 1.6 Calcium Phosphorus Magnesium Total Bilirubin AST ALT Alkaline Phosphatase Creatine Kinase Creatine Kinase Index CK-MB (CK-2) Troponin I B-Natriuretic Peptide Total Protein Albumin Vitamin B12 Serum Folate TSH Urine Color Urine Appearance Urine pH Ur Specific [place] Urine Protein Urine Glucose (UA) Urine Ketones Urine Blood Urine Nitrite Urine Bilirubin Urine Urobilinogen Ur Leukocyte Esterase Urine WBC (Auto) Urine RBC (Auto) Urine Casts (Auto) U Pathogenic Cast Auto U Epithel Cells (Auto) Urine Bacteria (Auto) Urine Yeast (Auto) Urine Osmolality Ur Random Creatinine 48.0 Ur Random Sodium 51 Stool Occult Blood Influenza A (Rapid) Influenza B (Rapid) Blood Type Antibody Screen Crossmatch 06/12/19 06/12/19 06/12/19 00:15 00:15 01:15 WBC RBC Hgb Hct MCV MCH MCHC RDW Plt Count MPV Absolute Neuts (auto) Neutrophils % Neutrophils % (Manual) Band Neutrophils % Lymphocytes % Lymphocytes % (Manual) Monocytes % Monocytes % (Manual) Eosinophils % Eosinophils % (Manual) Basophils % Basophils % (Manual) Myelocytes % (Man) Promyelocytes % (Man) Blast Cells % (Manual) Nucleated RBC % Metamyelocytes Hypochromia Platelet Estimate Platelet Comment Polychromasia Poikilocytosis Anisocytosis Microcytosis Macrocytosis PT with INR INR PTT (Actin FS) Anticoagulation Therapy No Result Required. Puncture Site Right radial ABG pH 7.29 L ABG pCO2 at Pt Temp 34.8 L ABG pO2 at Pt Temp 221 H ABG HCO3 16.2 L ABG O2 Sat (Measured) 99.2 H ABG O2 Content 9.7 ABG Base Excess -9.1 L Garett Test Positive VBG pH POC VBG pCO2 POC VBG pO2 VBG HCO3 VBG O2 Sat (Adrian) VBG Base Excess Patient On Oxygen Yes O2 Delivery Device Ventilator Oxygen Flow Rate 50% Vent Mode A/c Vent Rate 14 Mechanical Rate No Result Required. PEEP 5.0 Pressure Support Vent 400 Sodium 162 H* Potassium 4.8 Chloride 139 H Carbon Dioxide 18 L Anion Gap 6 L BUN 107.0 H* Creatinine 2.6 H Est GFR (CKD-EPI)AfAm 20.53 Est GFR (CKD-EPI)NonAf 17.71 POC Glucometer Random Glucose 273 H Hemoglobin A1c % Serum Osmolality Lactic Acid Calcium 7.4 L Phosphorus Magnesium Total Bilirubin AST ALT Alkaline Phosphatase Creatine Kinase 1064 H Creatine Kinase Index 0.1 CK-MB (CK-2) 1.8 Troponin I 0.44 H B-Natriuretic Peptide 1875.2 H Total Protein Albumin Vitamin B12 Serum Folate TSH Urine Color Urine Appearance Urine pH Ur Specific [place] Urine Protein Urine Glucose (UA) Urine Ketones Urine Blood Urine Nitrite Urine Bilirubin Urine Urobilinogen Ur Leukocyte Esterase Urine WBC (Auto) Urine RBC (Auto) Urine Casts (Auto) U Pathogenic Cast Auto U Epithel Cells (Auto) Urine Bacteria (Auto) Urine Yeast (Auto) Urine Osmolality 557 Ur Random Creatinine Ur Random Sodium Stool Occult Blood Influenza A (Rapid) Influenza B (Rapid) Blood Type Antibody Screen Crossmatch 06/12/19 06/12/19 06/12/19 02:09 02:09 06:04 WBC 16.0 H RBC 2.14 L Hgb 6.9 L* Hct 22.1 L D MCV 103.2 H MCH 32.0 MCHC 31.1 L RDW 14.7 Plt Count 378 D MPV 8.3 Absolute Neuts (auto) 12.4 H Neutrophils % 77.9 Neutrophils % (Manual) Band Neutrophils % Lymphocytes % 15.2 D Lymphocytes % (Manual) Monocytes % 5.6 Monocytes % (Manual) Eosinophils % 0.7 D Eosinophils % (Manual) Basophils % 0.6 Basophils % (Manual) Myelocytes % (Man) Promyelocytes % (Man) Blast Cells % (Manual) Nucleated RBC % 0 Metamyelocytes Hypochromia Platelet Estimate Platelet Comment Polychromasia Poikilocytosis Anisocytosis Microcytosis Macrocytosis PT with INR INR PTT (Actin FS) Anticoagulation Therapy Puncture Site ABG pH ABG pCO2 at Pt Temp ABG pO2 at Pt Temp ABG HCO3 ABG O2 Sat (Measured) ABG O2 Content ABG Base Excess Garett Test VBG pH POC VBG pCO2 POC VBG pO2 VBG HCO3 VBG O2 Sat (Adrian) VBG Base Excess Patient On Oxygen O2 Delivery Device Oxygen Flow Rate Vent Mode Vent Rate Mechanical Rate PEEP Pressure Support Vent Sodium 162 H* Potassium 5.1 Chloride 141 H Carbon Dioxide 18 L Anion Gap 4 L BUN 97.8 H Creatinine 2.4 H Est GFR (CKD-EPI)AfAm 22.62 Est GFR (CKD-EPI)NonAf 19.51 POC Glucometer Random Glucose 193 H Hemoglobin A1c % Serum Osmolality Lactic Acid Calcium 7.8 L Phosphorus Magnesium Total Bilirubin AST ALT Alkaline Phosphatase Creatine Kinase Creatine Kinase Index CK-MB (CK-2) Troponin I B-Natriuretic Peptide Total Protein Albumin Vitamin B12 Serum Folate TSH Urine Color Urine Appearance Urine pH Ur Specific [place] Urine Protein Urine Glucose (UA) Urine Ketones Urine Blood Urine Nitrite Urine Bilirubin Urine Urobilinogen Ur Leukocyte Esterase Urine WBC (Auto) Urine RBC (Auto) Urine Casts (Auto) U Pathogenic Cast Auto U Epithel Cells (Auto) Urine Bacteria (Auto) Urine Yeast (Auto) Urine Osmolality Ur Random Creatinine Ur Random Sodium Stool Occult Blood Influenza A (Rapid) Influenza B (Rapid) Blood Type B POSITIVE Antibody Screen Negative Crossmatch See Detail 06/12/19 06/12/19 06/12/19 06:04 06:04 06:04 WBC RBC Hgb Hct MCV MCH MCHC RDW Plt Count MPV Absolute Neuts (auto) Neutrophils % Neutrophils % (Manual) Band Neutrophils % Lymphocytes % Lymphocytes % (Manual) Monocytes % Monocytes % (Manual) Eosinophils % Eosinophils % (Manual) Basophils % Basophils % (Manual) Myelocytes % (Man) Promyelocytes % (Man) Blast Cells % (Manual) Nucleated RBC % Metamyelocytes Hypochromia Platelet Estimate Platelet Comment Polychromasia Poikilocytosis Anisocytosis Microcytosis Macrocytosis PT with INR 19.70 H INR 1.66 H PTT (Actin FS) 28.2 Anticoagulation Therapy Puncture Site ABG pH ABG pCO2 at Pt Temp ABG pO2 at Pt Temp ABG HCO3 ABG O2 Sat (Measured) ABG O2 Content ABG Base Excess Gaertt Test VBG pH POC VBG pCO2 POC VBG pO2 VBG HCO3 VBG O2 Sat (Adrian) VBG Base Excess Patient On Oxygen O2 Delivery Device Oxygen Flow Rate Vent Mode Vent Rate Mechanical Rate PEEP Pressure Support Vent Sodium 165 H* Potassium 5.4 H Chloride 142 H Carbon Dioxide 18 L Anion Gap 5 L BUN 96.0 H Creatinine 2.4 H Est GFR (CKD-EPI)AfAm 22.62 Est GFR (CKD-EPI)NonAf 19.51 POC Glucometer Random Glucose 137 H Hemoglobin A1c % 7.5 H Serum Osmolality Lactic Acid Calcium 8.1 L Phosphorus 3.7 Magnesium 3.2 H Total Bilirubin 0.2 AST 29 ALT 19 Alkaline Phosphatase 55 Creatine Kinase 949 H Creatine Kinase Index 0.2 CK-MB (CK-2) 2.4 Troponin I 0.49 H B-Natriuretic Peptide Total Protein 6.0 L Albumin 1.8 L Vitamin B12 Serum Folate 55 H TSH 0.20 L Urine Color Urine Appearance Urine pH Ur Specific [place] Urine Protein Urine Glucose (UA) Urine Ketones Urine Blood Urine Nitrite Urine Bilirubin Urine Urobilinogen Ur Leukocyte Esterase Urine WBC (Auto) Urine RBC (Auto) Urine Casts (Auto) U Pathogenic Cast Auto U Epithel Cells (Auto) Urine Bacteria (Auto) Urine Yeast (Auto) Urine Osmolality Ur Random Creatinine Ur Random Sodium Stool Occult Blood Influenza A (Rapid) Influenza B (Rapid) Blood Type Antibody Screen Crossmatch 06/12/19 06/12/19 06:04 06:04 WBC RBC Hgb Hct MCV MCH MCHC RDW Plt Count MPV Absolute Neuts (auto) Neutrophils % Neutrophils % (Manual) Band Neutrophils % Lymphocytes % Lymphocytes % (Manual) Monocytes % Monocytes % (Manual) Eosinophils % Eosinophils % (Manual) Basophils % Basophils % (Manual) Myelocytes % (Man) Promyelocytes % (Man) Blast Cells % (Manual) Nucleated RBC % Metamyelocytes Hypochromia Platelet Estimate Platelet Comment Polychromasia Poikilocytosis Anisocytosis Microcytosis Macrocytosis PT with INR INR PTT (Actin FS) Anticoagulation Therapy No Result Required. Puncture Site Right radial ABG pH 7.33 L ABG pCO2 at Pt Temp 33.0 L ABG pO2 at Pt Temp 226 H ABG HCO3 16.9 L ABG O2 Sat (Measured) 99.5 H ABG O2 Content 9.9 ABG Base Excess -7.9 L Garett Test Positive VBG pH POC VBG pCO2 POC VBG pO2 VBG HCO3 VBG O2 Sat (Adrian) VBG Base Excess Patient On Oxygen Yes O2 Delivery Device Ventilator Oxygen Flow Rate 50% Vent Mode A/c Vent Rate 14 Mechanical Rate No Result Required. PEEP 5.0 Pressure Support Vent 400 Sodium Potassium Chloride Carbon Dioxide Anion Gap BUN Creatinine Est GFR (CKD-EPI)AfAm Est GFR (CKD-EPI)NonAf POC Glucometer Random Glucose Hemoglobin A1c % Serum Osmolality Lactic Acid Calcium Phosphorus Magnesium Total Bilirubin AST ALT Alkaline Phosphatase Creatine Kinase Creatine Kinase Index CK-MB (CK-2) Troponin I B-Natriuretic Peptide Total Protein Albumin Vitamin B12 941 Serum Folate TSH Urine Color Urine Appearance Urine pH Ur Specific [place] Urine Protein Urine Glucose (UA) Urine Ketones Urine Blood Urine Nitrite Urine Bilirubin Urine Urobilinogen Ur Leukocyte Esterase Urine WBC (Auto) Urine RBC (Auto) Urine Casts (Auto) U Pathogenic Cast Auto U Epithel Cells (Auto) Urine Bacteria (Auto) Urine Yeast (Auto) Urine Osmolality Ur Random Creatinine Ur Random Sodium Stool Occult Blood Influenza A (Rapid) Influenza B (Rapid) Blood Type Antibody Screen Crossmatch labs noted Spoke with daughter Venessa Sprague who has given telephone consent for blood transfusion unable to examine pt as no N95 masks available
--- NOTE | 2019-06-12 13:59 | PN ---
Teaching Attending Note Name of Resident: Bisi Segura ATTENDING PHYSICIAN STATEMENT I saw and evaluated the patient. I reviewed the resident's note and discussed the case with the resident. I agree with the resident's findings and plan as documented. SUBJECTIVE: Pt seen and examined in the ER. Intubated, sedated. No pressors. Vented on volume assist control with 50% FiO2. OBJECTIVE: Vital Signs Period Temp Pulse Resp BP Sys/Hall Pulse Ox Last 24 Hr 101.1 F 60-105 14-24 92-156/48-67 98-100 Intake & Output 06/09/19 06/10/19 06/11/19 06/12/19 23:59 23:59 23:59 23:59 Intake Total 2100 Balance 2099 Weight 72.575 kg Gen: intubated, sedated Heart: RRR Lung: decreased breath sounds at the bases Abd: soft, nontender Ext: no edema CBC, BMP 06/12/19 06:04 ABG Results ABG pH 7.33 (7.35-7.45) L 06/12/19 06:04 ABG pCO2 at Pt Temp 33.0 mmHg (35-45) L 06/12/19 06:04 ABG pO2 at Pt Temp 226 mmHg (80-100) H 06/12/19 06:04 ABG HCO3 16.9 mmol/L (22-27) L 06/12/19 06:04 ABG O2 Sat (Measured) 99.5 % (95-98) H 06/12/19 06:04 ABG O2 Content 9.9 % vol 06/12/19 06:04 ABG Base Excess -7.9 meq/l (-2-2) L 06/12/19 06:04 Active Medications Chlorhexidine Gluconate (Hibiclens For Decolonization -) 1 applic TP HS LENI Propofol (Diprivan -) 1,000,000 mcg in 100 mls @ 2.177 mls/hr IVPB TITR LENI; Protocol Last Admin: 06/11/19 22:13 Dose: 5 mcg/kg/min, 2.177 mls/hr Documented by: Cefepime HCl (Maxipime 2gm Ivpb (Premix)) 2 gm in 50 mls @ 100 mls/hr IVPB BID LENI; Protocol Cefepime HCl 2 gm/ Dextrose 50 mls @ 100 mls/hr IVPB BID [facility]; Protocol Stop: 06/12/19 22:29 Last Admin: 06/12/19 11:29 Dose: 100 mls/hr Documented by: Sodium Chloride (1/2 Normal Saline) 1,000 mls @ 150 mls/hr IV ASDIR [facility] Last Admin: 06/12/19 02:43 Dose: 150 mls/hr Documented by: Insulin Aspart (Novolog Vial Sliding Scale -) 1 vial SQ TIDAC [facility]; Protocol Last Admin: 06/12/19 11:30 Dose: Not Given Documented by: Mupirocin (Bactroban Ointment (For Decolonization) -) 1 applic NS BID [facility] Stop: 06/17/19 09:59 Pantoprazole Sodium (Protonix Iv) 40 mg IVPUSH BID [facility] Last Admin: 06/12/19 10:47 Dose: 40 mg Documented by: ASSESSMENT AND PLAN: Acute Hypoxic Respiratory Failure UTI Severe Sepsis Lactic Acidosis Acute on Chronic Renal Failure +Troponins likely Demand Ischemia Hypernatremia/Dehydration HTN DM Hypothyroidism Anemia Dementia Functional Quadriplegia - IV antibiotics - f/u cultures, serologies - IVF - monitor urine output, creatinine - monitor lytes - echocardiogram - taper Fio2 to keep SpO2 >90% - lighten sedation in AM to assess mental status - DVT/GI prophylaxis - ICU monitoring critical care time spent in reviewing chart, evaluating patient and formulating plan 35 min
[2019-06-12 14:19] LABS: ALBUMIN 1.8 g/dl (3.4-5.0); BILIRUBIN,TOTAL 0.2 mg/dL (0.2-1); BLOOD UREA NITROGEN 82.3 mg/dL (7-18); CALCIUM 8.6 mg/dL (8.5-10.1); CREATININE 2.3 mg/dL (0.55-1.3); POTASSIUM 5.2 mmol/L (3.5-5.1); TOT PROT 6.1 g/dl (6.4-8.2)
--- NOTE | 2019-06-12 15:23 | PN ---
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 (short form) - Note 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: ID CONSULT DICTATED ACUTE RESP FAILURE UTI R/O SEPSIS SECONDARY TO UTI RENAL FAILURE AWAIT SEPSIS W/U EMPIRIC ZOSYN VENTILATORY SUPPORT COVID-19 TESTING SENT BY ER CRITICAL CARE TIME 35MIN
--- NOTE | 2019-06-12 16:00 | CONS ---
INFECTIOUS DISEASE CONSULTATION DATE OF CONSULTATION: DATE OF DICTATION: 06/12/2019 HISTORY OF PRESENT ILLNESS: A 73-year-old female who is evaluated for sepsis/septic shock. History was obtained from the chart, as she is presently intubated in the emergency room. She is a long-term resident. She was noted to become increasingly short of breath and lethargic. Patient was also noted to have altered mental status. She was brought to the emergency room where she was febrile. She developed respiratory failure, requiring intubation. On initial assessment, her abdomen was tender and catheterized urine was cloudy. Course significant for a temperature of 101.1 and a white blood cell count of 20,000. Cultures were obtained. She was empirically treated with Zosyn and cefepime. She is presently intubated and unable to give any additional details. [facility] She has had no recent hospitalizations. Patient has had a history of pseudomonas urinary tract infection, as well as MRSA colonization of the nares. PAST MEDICAL HISTORY: Positive for functional quadriplegia, diabetes mellitus, hypertension, atrial fibrillation, hypothyroidism, coronary artery disease, gastroesophageal reflux, depression, urinary tract infection. PAST SURGICAL HISTORY: Status post right hip fracture. ALLERGIES: LATEX; SULFA. MEDICATIONS: Include Zosyn, Diprivan, Protonix, insulin. SOCIAL HISTORY: penitentiary resident. Dependent in activities of daily living. No active tobacco or alcohol use. SYSTEMS REVIEW: Neurologic: Positive for dementia. Cardiac: Positive atrial fibrillation. Respiratory: Status post respiratory failure. Gastrointestinal: Positive history of gastroesophageal reflux. Genitourinary: Positive for urinary tract infection. LABORATORY DATA: White count on admission 20.6, hematocrit 22.1, platelets 378. Creatinine 2.3, sodium 165. Urinalysis: White cells 12,154. Influenza swab negative. PHYSICAL EXAMINATION: General: On exam, she is awake on the ventilator, in no acute distress, breathing nonlabored. Vital Signs: Temperature 101.1, blood pressure 95/50, pulse 78 regular, respirations 16 per minute. Eyes: Sclerae are anicteric. Throat: The patient is orally intubated. Heart: Heart sounds S1, S2. Lungs: Air entry bilaterally. Abdomen: Distended. Tympanitic. Soft. Nontender. Extremities: Edema 1+. IMPRESSION: 1. Acute respiratory failure. 2. Urinary tract infection. Rule out sepsis secondary to urinary tract infection. 3. Septic shock. 4. Toxic metabolic encephalopathy. 5. Lactic acidosis. 6. Renal failure. Continue ventilatory support. Pending cultures, empiric antibiotic coverage with Zosyn plus stat-dose vancomycin. Coronavirus testing has been sent by the emergency room. Prognosis is guarded. Critical care time spent 35 minutes. Thank you for the kind referral. DUSTIN ROJAS M.D. [id number]
[2019-06-12] MEDS ORDERED: PIPERACILLIN/TAZOB 3.375 GM 3.375 GM/50 ML BAG IVPB ONE (18:20)
[2019-06-12] MEDS ORDERED: PROPOFOL 1,000,000 MCG/100 ML VIAL ONE (18:21)
[2019-06-12] MEDS: PIPERACILLIN/TAZOB 3.375 GM 3.375 GM in DEXTROSE 5%-WATER - 50 ML IVPB SCH (18:48)
[2019-06-12] MEDS: CEFEPIME HCL/D5W 2 GM/50 ML BAG IVPB SCH ×2 (19:27→19:28)
[2019-06-12] MEDS: PROPOFOL 1,000,000 MCG/100 ML VIAL IVPB SCH (22:00)
[2019-06-12] MEDS ORDERED: CHLORHEXIDINE GLUCONATE 4% CLEANSER FOR DECOLONIZATION TP SCH (22:00)
[2019-06-12] MEDS ORDERED: PIPERACILLIN/TAZOBACTAM 3.375 GM VIAL IVPB ONE (22:57)
[2019-06-12] MEDS ORDERED: DEXTROSE 5%-WATER - 50 ML IVPB ONE (22:57)
--- NOTE | 2019-06-12 23:12 | CON.NEP ---
Consult Consult Specialty:: Nephrology Referred by:: toi fournier Reason for Consultation:: urosepsis - History of Present Illness Chief Complaint: cough and fever. 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: Dementia Cardio/Vascular: Yes: AFIB, CHF, Deep Vein Thrombosis, HTN, Hyperlipdemia, HI (NSTEMI) Endocrine: Yes: Diabetes Mellitus, Hypothyroidism - Alcohol/Substance Use Hx Alcohol Use: No History of Substance Use: reports: None - Smoking History Smoking history: Unknown if ever smoked Have you smoked in the past 12 months: No Aproximately how many cigarettes per day: 0 - Social History ADL: Support Services 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 History of Recent Travel: No Home Medications - Allergies Allergies/Adverse Reactions: Allergies Allergy/AdvReac Type Severity Reaction Status Date / Time latex Allergy Verified 06/11/19 20:42 shellfish derived Allergy Verified 06/11/19 20:42 Sulfa (Sulfonamide Allergy Verified 06/11/19 20:42 Antibiotics) [Sulfa(Sulfonamide Antibiotics)] - Home Medications Home Medications: Ambulatory Orders Atenolol [Tenormin -] 25 mg PO DAILY 12/26/14 Levothyroxine [Synthroid -] 50 mcg PO DAILY 12/26/14 Ferrous Sulfate [Feosol] 325 mg PO BID ud 12/27/14 Fenofibric Acid (Choline) [Trilipix] 135 mg PO DAILY 09/24/17 Sodium Phosphate/Na Biphos [Fleet Adult Rectal Enema -] 133 ml RC DAILY PRN 09/24/17 Vit A/Vitamin D3/E/Aloe V/Zinc [Periguard Ointment] 100 gm TP TID 09/24/17 Apixaban [Eliquis] 5 mg PO BID #90 tablet 09/30/17 Insulin Glargine,Hum.rec.anlog [Basaglar Kwikpen U-100] 18 unit SQ BID 03/06/18 Insulin Lispro [Humalog] 0 unit SQ ASDIR 03/06/18 Mirtazapine [Remeron Soltab -] 15 mg PO HS 03/06/18 Sennosides [Senna] 2 tab PO HS 03/06/18 Zinc Oxide 20% Topical Oint 1 applic .ROUTE DAILY 03/06/18 Levofloxacin [Levaquin] 500 mg PO DAILY #5 tablet 03/10/18 Nephrology Consult - Height Height: 5 ft 3 in - Weight Weight: 160 lb - BMI Body Mass Index (BMI): 28.3 - Lab Results CBC,BMP: CBC, BMP 06/12/19 06:04 06/12/19 10:00 Anion Gap: Anion Gap Anion Gap 6 MMOL/L (8-16) L 06/12/19 10:00 - Physical Examination Vital Signs: Vital Signs Temperature 97.7 F 06/12/19 20:22 Pulse Rate 65 06/12/19 20:22 Respiratory Rate 16 06/12/19 21:00 Blood Pressure 123/59 L 06/12/19 20:22 O2 Sat by Pulse Oximetry (%) 100 06/12/19 20:35 Assessment/Plan CBC, BMP 06/12/19 06:04 06/12/19 10:00 03/07/18 06/11/19 06/12/19 05:40 20:57 10:00 Creatinine 1.4 H 3.0 H 2.3 H ODESSA- early improvement trend severe Dehydration metabolic acidosis Hypernatremia Sepsis Acute resp failure on vent probable sepsis/urine source severe anemia Covid 19 test pending Plan- monitor urine output follow renal profile
[2019-06-12] MEDS: CHLORHEXIDINE GLUCONATE 4% CLEANSER FOR DECOLONIZATION TP SCH (23:15)
[2019-06-12] MEDS: MUPIROCIN 2% TOPICAL OINTMENT FOR DECOLONIZATION NS SCH (23:15)
[2019-06-13] MEDS: PIPERACILLIN/TAZOB 3.375 GM 3.375 GM in DEXTROSE 5%-WATER - 50 ML IVPB SCH ×3 (01:59→17:33)
[2019-06-13] MEDS: SODIUM CHLORIDE 0.45% 1,000 ML IV SCH ×2 (02:00→11:15)
[2019-06-13 02:34] LABS: BASO % 0.4 % (0-2.0); EOS % 2.2 % (0-4.5); HEMATOCRIT 25.5 % (32.4-45.2); LYMPH % 9.7 % (8-40); MCH 31.9 pg (25.7-33.7); MCHC 31.5 g/dl (32.0-36.0); MEAN CELL VOLUME 101.2 fl (80-96); MEAN PLT VOLUME 8.8 fl (7.5-11.1); MONO % 4.6 % (3.8-10.2); NEUT % 83.1 % (42.8-82.8); PLATELET COUNT 380 K/MM3 (134-434); RBC 2.52 M/mm3 (3.60-5.2); RDW 16.2 % (11.6-15.6); WHITE BLOOD COUNT 21.4 K/mm3 (4.0-10.0)
[2019-06-13 06:24] LABS: ANISOCYTOSIS 1+; MACROCYTOSIS 1+
[2019-06-13 06:25] LABS: PLATELET ESTIMATE ADEQUATE
[2019-06-13] MEDS: INSULIN SLIDING SCALE (NOVOLOG) 1 VIAL SQ SCH ×3 (06:47→17:33)
[2019-06-13] MEDS ORDERED: PIPERACILLIN/TAZOBACTAM 3.375 GM VIAL IVPB ONE ×2 (07:57→17:04)
[2019-06-13] MEDS ORDERED: DEXTROSE 5%-WATER - 50 ML IVPB ONE ×2 (07:57→17:04)
[2019-06-13] MEDS ORDERED: PT OWN MED DRAWER 7, Y5N ONE (08:36)
[2019-06-13 09:29] LABS: BASO % 0.5 % (0-2.0); EOS % 2.6 % (0-4.5); HEMATOCRIT 31.6 % (32.4-45.2); HEMOGLOBIN 9.9 GM/dL (10.7-15.3); LYMPH % 11.4 % (8-40); MCH 31.3 pg (25.7-33.7); MCHC 31.4 g/dl (32.0-36.0); MEAN CELL VOLUME 99.6 fl (80-96); MEAN PLT VOLUME 8.8 fl (7.5-11.1); MONO % 4.7 % (3.8-10.2); NEUT % 80.8 % (42.8-82.8); PLATELET COUNT 358 K/MM3 (134-434); RBC 3.17 M/mm3 (3.60-5.2); RDW 16.3 % (11.6-15.6); WHITE BLOOD COUNT 17.7 K/mm3 (4.0-10.0)
--- NOTE | 2019-06-13 10:00 | PN ---
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 (short form) - Note 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: Cardiology consult was placed for elevated trops. Pt being ruled out for covid19 and in resp isolation. Currently there are no masks available for me to examine pt. I reviewed labs, ecg and charts. Trops are borderline elevated with flat trend and nl ckmb, ecg w/o ischemic changes, no suggestion of ACS. Likely trop related to jeffery, sepsis. Will continue with full consult when able to examine pt.
[2019-06-13 10:07] LABS: ALBUMIN 1.8 g/dl (3.4-5.0); BILIRUBIN,TOTAL 0.3 mg/dL (0.2-1); BLOOD UREA NITROGEN 67.7 mg/dL (7-18); CALCIUM 8.1 mg/dL (8.5-10.1); CREATININE 2.1 mg/dL (0.55-1.3); PHOSPHOROUS 3.9 mg/dL (2.5-4.9); POTASSIUM 5.2 mmol/L (3.5-5.1)
[2019-06-13] MEDS: MUPIROCIN 2% TOPICAL OINTMENT FOR DECOLONIZATION NS SCH ×2 (10:28→21:00)
[2019-06-13] MEDS: PANTOPRAZOLE SODIUM 40 MG VIAL IVPUSH SCH ×2 (10:28→20:59)
[2019-06-13] MEDS ORDERED: VANCOMYCIN 1 GRAM (PRE-DOCKED) 1,000 MG/250 ML BAG IVPB ONE (10:30)
--- NOTE | 2019-06-13 11:30 | PN ---
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, Physician History of Present Illness: AWAKE ON VENTILATOR TEMPS DOWN AFEBRILE WBC REMAINS ELEVATED BC GPCCL AZOTEMIA IMPROVED REMAINS ON AIR[place]OR[place] PRECAUTIONS PENDING COVID-19 TESTING - Current Medication List Current Medications: Active Medications Chlorhexidine Gluconate (Hibiclens For Decolonization -) 1 applic TP HS [facility] Last Admin: 06/12/19 23:15 Dose: 1 applic Documented by: Propofol (Diprivan -) 1,000,000 mcg in 100 mls @ 2.177 mls/hr IVPB TITR [facility]; Protocol Last Titration: 06/13/19 02:00 Dose: 20 mcg/kg/min, 8.709 mls/hr Documented by: Piperacillin Sod/Tazobactam (Sod 3.375 gm/ Dextrose) 50 mls @ 100 mls/hr IVPB Q8H-IV [facility]; Protocol Last Admin: 06/13/19 10:28 Dose: 100 mls/hr Documented by: Vancomycin HCl (Vancomycin (Pre-Docked)) 1,000 mg in 250 mls @ 166.667 mls/hr IVPB ONCE ONE; Protocol Stop: 06/13/19 11:59 Last Admin: 06/13/19 11:15 Dose: 166.667 mls/hr Documented by: Sodium Chloride (1/2 Normal Saline) 1,000 mls @ 100 mls/hr IV ASDIR [facility] Last Admin: 06/13/19 11:15 Dose: 100 mls/hr Documented by: Insulin Aspart (Novolog Vial Sliding Scale -) 1 vial SQ TIDAC [facility]; Protocol Last Admin: 06/13/19 11:16 Dose: Not Given Documented by: Mupirocin (Bactroban Ointment (For Decolonization) -) 1 applic NS BID [facility] Stop: 06/17/19 09:59 Last Admin: 06/13/19 10:28 Dose: 1 applic Documented by: Pantoprazole Sodium (Protonix Iv) 40 mg IVPUSH BID [facility] Last Admin: 06/13/19 10:28 Dose: 40 mg Documented by: - Objective Vital Signs: Vital Signs Temperature 97.3 F L 06/13/19 05:00 Pulse Rate 64 06/13/19 11:17 Respiratory Rate 16 06/13/19 11:17 Blood Pressure 117/52 L 06/13/19 10:00 O2 Sat by Pulse Oximetry (%) 100 06/13/19 09:00 Constitutional: Yes: No Distress Eyes: Yes: Conjunctiva Clear Cardiovascular: Yes: Regular Rate and Rhythm, S1, S2 Respiratory: Yes: Mechanically Ventilated Gastrointestinal: Yes: Normal Bowel Sounds, Soft, Abdomen, Obese. No: Tenderness Labs: CBC, BMP 06/13/19 06:15 06/13/19 06:15 INR, PTT INR 1.66 (0.83-1.09) H 06/12/19 06:04 Assessment/Plan RESPIRATORY FAILURE SEPSIS R/O SEPTIC SHOCK UTI/ R/O SEPSIS SECONDARY TO UTI +BC R/O STAPH BACTEREMIA/ SEPSIS TOXIC METABOLIC ENCEPHALOPATHY/ OBS LACTIC ACIDOSIS AZOTEMIA AWAIT BC RESULT REPEAT BC VANCOMYCIN X1 DOSE CONTINUE ZOSYN VENTILATORY/ HEMODYNAMIC SUPPORT MAINTAIN AIRBORNE PRECAUTIONS CRITICAL CARE TIME 35MIN
--- NOTE | 2019-06-13 12:18 | PN ---
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 (short form) - Note 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: PULMONARY Pt seen and examined in the ICU. Remains intubated, sedated. No pressors. Blood cultures growing gram positive cocci in clusters. Vital Signs Period Temp Pulse Resp BP Sys/Hall Pulse Ox Last 24 Hr 97.2 F-99.6 F 14-73 14-16 90-127/48-76 100-100 Intake & Output 06/10/19 06/11/19 06/12/19 06/13/19 23:59 23:59 23:59 23:59 Intake Total 2099 2018 119 Output Total 1000 800 Balance 2099 1019 395 Weight 72.575 kg 57 kg 57 kg Gen: intubated, sedated Heart: RRR Lung: decreased breath sounds at the bases Abd: soft, nontender Ext: no edema CBC, BMP 06/13/19 06:15 06/13/19 06:15 Active Medications Chlorhexidine Gluconate (Hibiclens For Decolonization -) 1 applic TP HS [facility] Last Admin: 06/12/19 23:15 Dose: 1 applic Documented by: Propofol (Diprivan -) 1,000,000 mcg in 100 mls @ 2.177 mls/hr IVPB TITR [facility]; Protocol Last Titration: 06/13/19 02:00 Dose: 20 mcg/kg/min, 8.709 mls/hr Documented by: Piperacillin Sod/Tazobactam (Sod 3.375 gm/ Dextrose) 50 mls @ 100 mls/hr IVPB Q8H-IV [facility]; Protocol Last Admin: 06/13/19 10:28 Dose: 100 mls/hr Documented by: Sodium Chloride (1/2 Normal Saline) 1,000 mls @ 100 mls/hr IV ASDIR [facility] Last Admin: 06/13/19 11:15 Dose: 100 mls/hr Documented by: Insulin Aspart (Novolog Vial Sliding Scale -) 1 vial SQ [facility]AC [facility]; Protocol Last Admin: 06/13/19 11:16 Dose: Not Given Documented by: Mupirocin (Bactroban Ointment (For Decolonization) -) 1 applic NS BID [facility] Stop: 06/17/19 09:59 Last Admin: 06/13/19 10:28 Dose: 1 applic Documented by: Pantoprazole Sodium (Protonix Iv) 40 mg IVPUSH BID [facility] Last Admin: 06/13/19 10:28 Dose: 40 mg Documented by: A/P Acute Hypoxic Respiratory Failure UTI Gram Positive Bacteremia Severe Sepsis Lactic Acidosis Acute on Chronic Renal Failure +Troponins likely Demand Ischemia Hypernatremia/Dehydration HTN DM Hypothyroidism Anemia Dementia Functional Quadriplegia - IV antibiotics - f/u cultures, serologies - IVF, increase free water - monitor urine output, creatinine - monitor lytes - echocardiogram - taper Fio2 to keep SpO2 >90% - hold sedation in AM to assess mental status - spontaneous breathing trials as tolerated - DVT/GI prophylaxis - ICU monitoring critical care time spent in reviewing chart, evaluating patient and formulating plan 35 min
--- NOTE | 2019-06-13 16:35 | PN ---
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 (short form) - Note 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: continues to be intubated sedated Vital Signs - 24 hr 06/12/19 06/12/19 06/12/19 17:00 18:00 20:00 Temperature 97.4 F L Pulse Rate Pulse Rate [ 14 L 64 63 Apical] Respiratory 14 15 15 Rate Blood Pressure Blood Pressure 114/53 L 114/52 L 122/55 L [Left Arm] O2 Sat by Pulse 100 100 100 Oximetry (%) 06/12/19 06/12/19 06/12/19 20:07 20:22 20:35 Temperature 97.4 F L 97.7 F Pulse Rate Pulse Rate [ 64 65 Apical] Respiratory 15 16 16 Rate Blood Pressure Blood Pressure 112/76 123/59 L [Left Arm] O2 Sat by Pulse 100 100 100 Oximetry (%) 06/12/19 06/12/19 06/13/19 21:00 23:30 00:38 Temperature 97.6 F Pulse Rate 58 L Pulse Rate [ Apical] Respiratory 16 16 15 Rate Blood Pressure 127/62 Blood Pressure [Left Arm] O2 Sat by Pulse 100 Oximetry (%) 06/13/19 06/13/19 06/13/19 01:00 03:00 04:50 Temperature 97.5 F L Pulse Rate 59 L 61 Pulse Rate [ Apical] Respiratory 14 14 14 Rate Blood Pressure 90/49 L 91/48 L Blood Pressure [Left Arm] O2 Sat by Pulse Oximetry (%) 06/13/19 06/13/19 06/13/19 05:00 08:03 08:05 Temperature 97.3 F L Pulse Rate 62 62 Pulse Rate [ Apical] Respiratory 16 14 14 Rate Blood Pressure 96/50 L 102/50 L Blood Pressure [Left Arm] O2 Sat by Pulse 100 Oximetry (%) 06/13/19 06/13/19 06/13/19 08:48 09:00 10:00 Temperature Pulse Rate Pulse Rate [ Apical] Respiratory 14 14 Rate Blood Pressure 117/52 L Blood Pressure [Left Arm] O2 Sat by Pulse 100 Oximetry (%) 06/13/19 06/13/19 06/13/19 11:17 11:25 12:01 Temperature 99.6 F Pulse Rate 64 64 Pulse Rate [ Apical] Respiratory 16 14 Rate Blood Pressure 110/53 L Blood Pressure [Left Arm] O2 Sat by Pulse Oximetry (%) 06/13/19 06/13/19 12:27 14:06 Temperature Pulse Rate 64 Pulse Rate [ Apical] Respiratory 18 14 Rate Blood Pressure 88/50 L Blood Pressure [Left Arm] O2 Sat by Pulse Oximetry (%) Current Medications Generic Name Dose Route Start Last Admin Trade Name Marino PRN Reason Stop Dose Admin Chlorhexidine Gluconate 1 applic 06/12/19 22:00 06/12/19 23:15 Hibiclens For Decolonization - TP 1 applic HS [facility] Administration Propofol 1,000,000 mcg in 100 mls @ 2.177 mls/hr 06/11/19 21:45 06/13/19 02:00 Diprivan - IVPB 20 mcg/kg/min TITR [facility] 8.709 mls/hr Titration Protocol 5 MCG/KG/MIN Piperacillin Sod/Tazobactam 50 mls @ 100 mls/hr 06/12/19 18:00 06/13/19 10:28 Sod 3.375 gm/ Dextrose IVPB 100 mls/hr Q8H-IV [facility] Administration Protocol Sodium Chloride 1,000 mls @ 100 mls/hr 06/13/19 10:44 06/13/19 11:15 1/2 Normal Saline IV 100 mls/hr ASDIR [facility] Administration Insulin Aspart 1 vial 06/12/19 07:00 06/13/19 11:16 Novolog Vial Sliding Scale - SQ Not Given TIDAC [facility] Protocol Mupirocin 1 applic 06/12/19 10:00 06/13/19 10:28 Bactroban Ointment (For Decolonization) - NS 06/17/19 09:59 1 applic BID [facility] Administration Pantoprazole Sodium 40 mg 06/12/19 10:00 06/13/19 10:28 Protonix Iv IVPUSH 40 mg BID [facility] Administration Laboratory Results - last 24 hr 06/12/19 06/12/19 06/13/19 02:09 22:59 02:00 WBC 21.4 H RBC 2.52 L Hgb 8.0 L Hct 25.5 L D MCV 101.2 H MCH 31.9 MCHC 31.5 L RDW 16.2 H Plt Count 380 MPV 8.8 Absolute Neuts (auto) 17.8 H Total Counted 100 Neutrophils % 83.1 H Neutrophils % (Manual) 79.0 Band Neutrophils % 0.0 Lymphocytes % 9.7 D Lymphocytes % (Manual) 15.0 D Monocytes % 4.6 Monocytes % (Manual) 3 L Eosinophils % 2.2 D Eosinophils % (Manual) 1.0 Basophils % 0.4 Basophils % (Manual) 0.0 Myelocytes % (Man) 1 D Promyelocytes % (Man) 0 Blast Cells % (Manual) 0 Nucleated RBC % 0 Metamyelocytes 1 D Hypochromia 2+ Platelet Estimate Adequate Platelet Comment No clotting detected Polychromasia 1+ Poikilocytosis 0 Anisocytosis 1+ Microcytosis 1+ Macrocytosis 1+ [place] Cells 0 Sodium Potassium Chloride Carbon Dioxide Anion Gap BUN Creatinine Est GFR (CKD-EPI)AfAm Est GFR (CKD-EPI)NonAf POC Glucometer 97 Random Glucose Calcium Phosphorus Magnesium Total Bilirubin AST ALT Alkaline Phosphatase Total Protein Albumin Blood Type B POSITIVE Antibody Screen Negative Crossmatch See Detail 06/13/19 06/13/19 06/13/19 02:08 06:15 06:15 WBC 17.7 H RBC 3.17 L Hgb 9.9 L Hct 31.6 L D MCV 99.6 H MCH 31.3 MCHC 31.4 L RDW 16.3 H Plt Count 358 MPV 8.8 Absolute Neuts (auto) 14.3 H Total Counted Neutrophils % 80.8 Neutrophils % (Manual) Band Neutrophils % Lymphocytes % 11.4 Lymphocytes % (Manual) Monocytes % 4.7 Monocytes % (Manual) Eosinophils % 2.6 Eosinophils % (Manual) Basophils % 0.5 Basophils % (Manual) Myelocytes % (Man) Promyelocytes % (Man) Blast Cells % (Manual) Nucleated RBC % 0 Metamyelocytes Hypochromia Platelet Estimate Platelet Comment Polychromasia Poikilocytosis Anisocytosis Microcytosis Macrocytosis [place] Cells Sodium Cancelled 161 H* Potassium Cancelled 5.2 H Chloride Cancelled 136 H Carbon Dioxide Cancelled 19 L Anion Gap Cancelled 6 L BUN Cancelled 67.7 H Creatinine Cancelled 2.1 H Est GFR (CKD-EPI)AfAm Cancelled 26.58 Est GFR (CKD-EPI)NonAf Cancelled 22.93 POC Glucometer Random Glucose Cancelled 83 Calcium Cancelled 8.1 L Phosphorus 3.9 Magnesium 3.0 H Total Bilirubin Cancelled 0.3 AST Cancelled 26 ALT Cancelled 17 Alkaline Phosphatase Cancelled 55 Total Protein Cancelled 6.0 L Albumin Cancelled 1.8 L Blood Type Antibody Screen Crossmatch 06/13/19 06/13/19 06:41 11:02 WBC RBC Hgb Hct MCV MCH MCHC RDW Plt Count MPV Absolute Neuts (auto) Total Counted Neutrophils % Neutrophils % (Manual) Band Neutrophils % Lymphocytes % Lymphocytes % (Manual) Monocytes % Monocytes % (Manual) Eosinophils % Eosinophils % (Manual) Basophils % Basophils % (Manual) Myelocytes % (Man) Promyelocytes % (Man) Blast Cells % (Manual) Nucleated RBC % Metamyelocytes Hypochromia Platelet Estimate Platelet Comment Polychromasia Poikilocytosis Anisocytosis Microcytosis Macrocytosis [place] Cells Sodium Potassium Chloride Carbon Dioxide Anion Gap BUN Creatinine Est GFR (CKD-EPI)AfAm Est GFR (CKD-EPI)NonAf POC Glucometer 87 93 Random Glucose Calcium Phosphorus Magnesium Total Bilirubin AST ALT Alkaline Phosphatase Total Protein Albumin Blood Type Antibody Screen Crossmatch unable to examine as N95 masks and PPE for myself not accessible \pt is being ruled out for COVID Microbiology 06/11/19 20:57 Urine Culture - Preliminary Urine - Urine Collado Lactose Fermenting Neg Bacilli Pending Organism 06/11/19 20:57 Blood Culture - Preliminary Blood - Peripheral Venous Pending Organism Pending Organism#2 06/11/19 20:57 Blood Culture - Preliminary Blood - Peripheral Venous Pending Organism Microbiology 06/11/19 20:57 Urine - Urine Collado Urine Culture - Preliminary Lactose Fermenting Neg Bacilli Pending Organism 06/11/19 20:57 Blood - Peripheral Venous Blood Culture - Preliminary Pending Organism Pending Organism#2 06/11/19 20:57 Blood - Peripheral Venous Blood Culture - Preliminary Pending Organism PLAN ON antibiotics s/p PRBC cultures are positive iv fluids-- renal function and sodium improving on Zosyn Problem List - Problems (1) Acute respiratory failure Code(s): J96.00 - ACUTE RESPIRATORY FAILURE, UNSP W HYPOXIA OR HYPERCAPNIA (2) Acute respiratory failure requiring reintubation Code(s): J96.00 - ACUTE RESPIRATORY FAILURE, UNSP W HYPOXIA OR HYPERCAPNIA (3) Sepsis Code(s): A41.9 - SEPSIS, UNSPECIFIED ORGANISM (4) Hypernatremia Code(s): E87.0 - HYPEROSMOLALITY AND HYPERNATREMIA (5) UTI (urinary tract infection) Code(s): N39.0 - URINARY TRACT INFECTION, SITE NOT SPECIFIED Qualifiers: Urinary tract infection type: site unspecified Hematuria presence: with hematuria Qualified Code(s): N39.0 - Urinary tract infection, site not specified; R31.9 - Hematuria, unspecified
--- NOTE | 2019-06-13 16:47 | PN ---
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 (short form) - Note 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: Problems ODESSA- early improvement trend severe Dehydration metabolic acidosis Hypernatremia Sepsis Acute resp failure on vent probable sepsis/urine source severe anemia Covid 19 test pending Current Medications Chlorhexidine Gluconate (Hibiclens For Decolonization -) 1 applic TP HS [facility] Last Admin: 06/12/19 23:15 Dose: 1 applic Documented by: Propofol (Diprivan -) 1,000,000 mcg in 100 mls @ 2.177 mls/hr IVPB TITR [facility]; Protocol Last Titration: 06/13/19 02:00 Dose: 20 mcg/kg/min, 8.709 mls/hr Documented by: Piperacillin Sod/Tazobactam (Sod 3.375 gm/ Dextrose) 50 mls @ 100 mls/hr IVPB Q8H-IV [facility]; Protocol Last Admin: 06/13/19 10:28 Dose: 100 mls/hr Documented by: Sodium Chloride (1/2 Normal Saline) 1,000 mls @ 100 mls/hr IV ASDIR [facility] Last Admin: 06/13/19 11:15 Dose: 100 mls/hr Documented by: Insulin Aspart (Novolog Vial Sliding Scale -) 1 vial SQ TIDAC [facility]; Protocol Last Admin: 06/13/19 11:16 Dose: Not Given Documented by: Mupirocin (Bactroban Ointment (For Decolonization) -) 1 applic NS BID [facility] Stop: 06/17/19 09:59 Last Admin: 06/13/19 10:28 Dose: 1 applic Documented by: Pantoprazole Sodium (Protonix Iv) 40 mg IVPUSH BID [facility] Last Admin: 06/13/19 10:28 Dose: 40 mg Documented by: Last Vital Signs Temp Pulse Resp BP Pulse Ox 99.6 F 64 14 88/50 L 100 06/13/19 11:25 06/13/19 14:06 06/13/19 14:06 06/13/19 14:06 06/13/19 09:00 CBC, BMP 06/13/19 06:15 06/13/19 06:15 IMP- sepsis/hypotension acute resp failure ODESSA beginning to improve but may needs better BP Plan- continue IVF monitor urine output follow renal profile
[2019-06-13] MEDS: PROPOFOL 1,000,000 MCG/100 ML VIAL IVPB SCH (18:08)
[2019-06-13] MEDS: CHLORHEXIDINE GLUCONATE 4% CLEANSER FOR DECOLONIZATION TP SCH (21:00)
[2019-06-14] MEDS ORDERED: DEXTROSE 5%-WATER - 50 ML IVPB ONE ×3 (01:03→17:49)
[2019-06-14] MEDS ORDERED: PIPERACILLIN/TAZOBACTAM 3.375 GM VIAL IVPB ONE ×3 (01:03→17:49)
[2019-06-14] MEDS: PROPOFOL 1,000,000 MCG/100 ML VIAL IVPB SCH ×2 (01:05→21:16)
[2019-06-14] MEDS: SODIUM CHLORIDE 0.45% 1,000 ML IV SCH (01:05)
[2019-06-14] MEDS: PIPERACILLIN/TAZOB 3.375 GM 3.375 GM in DEXTROSE 5%-WATER - 50 ML IVPB SCH ×3 (01:05→17:52)
[2019-06-14] MEDS: INSULIN SLIDING SCALE (NOVOLOG) 1 VIAL SQ SCH ×3 (07:23→17:53)
[2019-06-14 07:49] LABS: INR 1.44 (0.83-1.09)
[2019-06-14 08:10] LABS: ALBUMIN 1.7 g/dl (3.4-5.0); BILIRUBIN,TOTAL 0.4 mg/dL (0.2-1); BLOOD UREA NITROGEN 52.4 mg/dL (7-18); CALCIUM 7.9 mg/dL (8.5-10.1); CREATININE 1.9 mg/dL (0.55-1.3); MAGNESIUM 2.8 mg/dL (1.8-2.4); POTASSIUM 5.2 mmol/L (3.5-5.1); TOT PROT 5.9 g/dl (6.4-8.2)
[2019-06-14] MEDS ORDERED: SODIUM CHLORIDE 0.45% 1,000 ML IV SCH (10:32)
[2019-06-14] MEDS: DEXTROSE 5%-0.45% SALINE 1,000 ML IV SCH (11:21)
[2019-06-14] MEDS: PANTOPRAZOLE SODIUM 40 MG VIAL IVPUSH SCH ×2 (11:22→21:16)
[2019-06-14] MEDS: MUPIROCIN 2% TOPICAL OINTMENT FOR DECOLONIZATION NS SCH ×2 (11:22→21:26)
--- NOTE | 2019-06-14 11:34 | PN ---
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 (short form) - Note 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: Intubated/ sedated all f/u noted chart reviewed. patient not examined due to lack of appropriate protective equipment for COVID- 19 rule out But discussed with I/D-- In icu Vital Signs Temp 97.4 F L 06/14/19 06:00 Pulse 60 06/14/19 08:00 Resp 14 06/14/19 08:25 BP 102/51 L 06/14/19 08:00 Pulse Ox 100 06/14/19 09:30 Intake & Output 06/13/19 06/13/19 06/14/19 11:59 23:59 11:59 Intake Total 1195 983 Output Total 800 300 Balance 395 683 Weight 125 lb 10.616 oz 160 lb Intake: IV 745 983 1/2 Normal Saline 1,000 900 ml @ 100 mls/hr IV ASDIR [facility] Rx#:[id number] 1/2 Normal Saline 1,000 625 ml @ 150 mls/hr IV ASDIR [facility] Rx#:[id number] DIPRIVAN - 1,000,000 mcg 120 83 In 100 ml @ 5 MCG/KG/MIN 2.177 mls/hr IVPB TITR [facility] Rx#:[id number] IVPB 450 Output: Urine 800 300 [place] 800 300 Other: Voiding Method Indwelling Catheter Indwelling Catheter Height 5 ft 3 in Body Mass Index (BMI) 28.3 Weight Measurement Method Built in [facility] Active Medications Chlorhexidine Gluconate (Hibiclens For Decolonization -) 1 applic TP HS [facility] Last Admin: 06/13/19 21:00 Dose: 1 applic Documented by: Propofol (Diprivan -) 1,000,000 mcg in 100 mls @ 2.177 mls/hr IVPB TITR [facility]; Protocol Last Titration: 06/14/19 11:10 Dose: 0 mcg/kg/min, 0 mls/hr Documented by: Piperacillin Sod/Tazobactam (Sod 3.375 gm/ Dextrose) 50 mls @ 100 mls/hr IVPB Q8H-IV [facility]; Protocol Last Admin: 06/14/19 11:22 Dose: 100 mls/hr Documented by: Dextrose/Sodium Chloride (D5-1/2ns -) 1,000 mls @ 75 mls/hr IV ASDIR [facility] Last Admin: 06/14/19 11:21 Dose: 75 mls/hr Documented by: Insulin Aspart (Novolog Vial Sliding Scale -) 1 vial SQ TIDAC [facility]; Protocol Last Admin: 06/14/19 11:22 Dose: Not Given Documented by: Mupirocin (Bactroban Ointment (For Decolonization) -) 1 applic NS BID [facility] Stop: 06/17/19 09:59 Last Admin: 06/14/19 11:22 Dose: 1 applic Documented by: Pantoprazole Sodium (Protonix Iv) 40 mg IVPUSH BID [facility] Last Admin: 06/14/19 11:22 Dose: 40 mg Documented by: CBC, BMP 06/13/19 06:15 06/14/19 06:00 PLAN antibiotics s/p PRBC cultures are positive iv fluids-- renal function and sodium improving on Zosyn Vent support ICU following Will follow Condition remains critical Case was d/w i/d, Nursing staff , icu team Will follow. cc time approx 30 min. Problem List - Problems (1) Acute respiratory failure Code(s): J96.00 - ACUTE RESPIRATORY FAILURE, UNSP W HYPOXIA OR HYPERCAPNIA (2) Acute respiratory failure requiring reintubation Code(s): J96.00 - ACUTE RESPIRATORY FAILURE, UNSP W HYPOXIA OR HYPERCAPNIA (3) Sepsis Code(s): A41.9 - SEPSIS, UNSPECIFIED ORGANISM (4) Hypernatremia Code(s): E87.0 - HYPEROSMOLALITY AND HYPERNATREMIA (5) UTI (urinary tract infection) Code(s): N39.0 - URINARY TRACT INFECTION, SITE NOT SPECIFIED Qualifiers: Urinary tract infection type: site unspecified Hematuria presence: with hematuria Qualified Code(s): N39.0 - Urinary tract infection, site not specified; R31.9 - Hematuria, unspecified
[2019-06-14] MEDS ORDERED: VANCOMYCIN 1 GM in D5W (PRE-DOCKED) 1,000 MG/250 ML IVPB ONE (11:45)
--- NOTE | 2019-06-14 12:24 | PN ---
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 (short form) - Note 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: Cardiology follow up. Unable to examine patient due to rule out for COVID-19, respiratory isolation with appropriate protective equipment not available. Trops are borderline elevated with flat trend and nl ckmb, ecg w/o ischemic changes, no suggestion of ACS. Likely demand in setting of ODESSA, sepsis. BCx positive for coag negative staph. Tele shows sinus rhythm. Will continue with full consult when able to examine pt.
--- NOTE | 2019-06-14 12:46 | PN ---
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 (short form) - Note 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: PULMONARY Pt seen and examined in the ICU. Intubated, arousable. No pressors. Tolerated CPAP/PS trials and subsequently extubated during rounds. Vital Signs Period Temp Pulse Resp BP Sys/Hall Pulse Ox Last 24 Hr 97.4 F-99.4 F 60-72 14-19 88-147/47-61 97-100 Intake & Output 06/11/19 06/12/19 06/13/19 06/14/19 23:59 23:59 23:59 23:59 Intake Total 2099 2018 2177 Output Total 1000 1099 Balance 2099 1019 1078 Weight 72.575 kg 57 kg 72.575 kg Gen: extubated Heart: RRR Lung: decreased breath sounds at the bases Abd: soft, nontender Ext: no edema CBC, BMP 06/13/19 06:15 06/14/19 06:00 Active Medications Chlorhexidine Gluconate (Hibiclens For Decolonization -) 1 applic TP HS [facility] Last Admin: 06/13/19 21:00 Dose: 1 applic Documented by: Propofol (Diprivan -) 1,000,000 mcg in 100 mls @ 2.177 mls/hr IVPB TITR [facility]; Protocol Last Titration: 06/14/19 11:10 Dose: 0 mcg/kg/min, 0 mls/hr Documented by: Piperacillin Sod/Tazobactam (Sod 3.375 gm/ Dextrose) 50 mls @ 100 mls/hr IVPB Q8H-IV [facility]; Protocol Last Admin: 06/14/19 11:22 Dose: 100 mls/hr Documented by: Dextrose/Sodium Chloride (D5-1/2ns -) 1,000 mls @ 75 mls/hr IV ASDIR [facility] Last Admin: 06/14/19 11:21 Dose: 75 mls/hr Documented by: Insulin Aspart (Novolog Vial Sliding Scale -) 1 vial SQ TIDAC [facility]; Protocol Last Admin: 06/14/19 11:22 Dose: Not Given Documented by: Mupirocin (Bactroban Ointment (For Decolonization) -) 1 applic NS BID [facility] Stop: 06/17/19 09:59 Last Admin: 06/14/19 11:22 Dose: 1 applic Documented by: Pantoprazole Sodium (Protonix Iv) 40 mg IVPUSH BID [facility] Last Admin: 06/14/19 11:22 Dose: 40 mg Documented by: A/P Acute Hypoxic Respiratory Failure UTI Gram Positive Bacteremia Severe Sepsis Lactic Acidosis Acute on Chronic Renal Failure +Troponins likely Demand Ischemia Hypernatremia/Dehydration HTN DM Hypothyroidism Anemia Dementia Functional Quadriplegia - pt extubated - IV antibiotics - f/u cultures, serologies - IVF, replace free water - monitor urine output, creatinine - monitor lytes - echocardiogram - taper Fio2 to keep SpO2 >90% - aspiration precautions - DVT/GI prophylaxis - ICU monitoring critical care time spent in reviewing chart, evaluating patient and formulating plan 35 min
[2019-06-14] MEDS ORDERED: VANCOMYCIN 1 GRAM (PRE-DOCKED) 1,000 MG/250 ML BAG IVPB ONE (13:18)
--- NOTE | 2019-06-14 13:23 | PN ---
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, Physician History of Present Illness: EXTUBATED TEMPS DOWN AFEBRILE WBC REMAINS ELEVATED 17k BC SCN URINE C/S MIXED SPUTUM C/S MRSA, YEAST AZOTEMIA IMPROVED REMAINS ON [employer] PRECAUTIONS PENDING COVID-19 TESTING - Current Medication List Current Medications: Active Medications Chlorhexidine Gluconate (Hibiclens For Decolonization -) 1 applic TP HS [facility] Last Admin: 06/13/19 21:00 Dose: 1 applic Documented by: Propofol (Diprivan -) 1,000,000 mcg in 100 mls @ 2.177 mls/hr IVPB TITR [facility]; Protocol Last Titration: 06/14/19 11:10 Dose: 0 mcg/kg/min, 0 mls/hr Documented by: Piperacillin Sod/Tazobactam (Sod 3.375 gm/ Dextrose) 50 mls @ 100 mls/hr IVPB Q8H-IV [facility]; Protocol Last Admin: 06/14/19 11:22 Dose: 100 mls/hr Documented by: Dextrose/Sodium Chloride (D5-1/2ns -) 1,000 mls @ 75 mls/hr IV [facility] Last Admin: 06/14/19 11:21 Dose: 75 mls/hr Documented by: Vancomycin HCl 1,000 mg/ (Dextrose) 250 mls @ 166.667 mls/hr IVPB ONCE ONE; Protocol Stop: 06/14/19 14:47 Insulin Aspart (Novolog Vial Sliding Scale -) 1 vial SQ [facility]IDAC [facility]; Protocol Last Admin: 06/14/19 11:22 Dose: Not Given Documented by: Mupirocin (Bactroban Ointment (For Decolonization) -) 1 applic NS BID [facility] Stop: 06/17/19 09:59 Last Admin: 06/14/19 11:22 Dose: 1 applic Documented by: Pantoprazole Sodium (Protonix Iv) 40 mg IVPUSH BID [facility] Last Admin: 06/14/19 11:22 Dose: 40 mg Documented by: - Objective Vital Signs: Vital Signs Temperature 98 F 06/14/19 10:00 Pulse Rate 72 06/14/19 12:10 Respiratory Rate 18 06/14/19 12:00 Blood Pressure 147/61 06/14/19 12:00 O2 Sat by Pulse Oximetry (%) 97 06/14/19 12:10 Constitutional: Yes: No Distress Eyes: Yes: Conjunctiva Clear Cardiovascular: Yes: Regular Rate and Rhythm, S1, S2 Respiratory: Yes: Diminished Gastrointestinal: Yes: Normal Bowel Sounds, Soft. No: Tenderness Edema: Yes Labs: CBC, BMP 06/13/19 06:15 06/14/19 06:00 INR, PTT INR 1.44 (0.83-1.09) H 06/14/19 07:00 Assessment/Plan RESPIRATORY FAILURE S/P EXTUBATION SEPSIS R/O SEPTIC SHOCK UTI/ R/O SEPSIS SECONDARY TO UTI +BC R/O STAPH BACTEREMIA/ SEPSIS TOXIC METABOLIC ENCEPHALOPATHY/ OBS LACTIC ACIDOSIS AZOTEMIA IMPROVED AWAIT FINAL BC RESULT REPEAT BC PENDING REDOSE VANCOMYCIN X1 CONTINUE ZOSYN VENTILATORY/ HEMODYNAMIC SUPPORT MAINTAIN AIRBORNE PRECAUTIONS
--- NOTE | 2019-06-14 15:44 | PN ---
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 (short form) - Note 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: Problems ODESSA- early improvement trend severe Dehydration metabolic acidosis Hypernatremia Sepsis Acute resp failure extubated probable sepsis/urine source severe anemia Covid 19 test pending Current Medications Chlorhexidine Gluconate (Hibiclens For Decolonization -) 1 applic TP HS [facility] Last Admin: 06/13/19 21:00 Dose: 1 applic Documented by: Propofol (Diprivan -) 1,000,000 mcg in 100 mls @ 2.177 mls/hr IVPB TITR [facility]; Protocol Last Titration: 06/14/19 11:10 Dose: 0 mcg/kg/min, 0 mls/hr Documented by: Piperacillin Sod/Tazobactam (Sod 3.375 gm/ Dextrose) 50 mls @ 100 mls/hr IVPB Q8H-IV [facility]; Protocol Last Admin: 06/14/19 11:22 Dose: 100 mls/hr Documented by: Dextrose/Sodium Chloride (D5-1/2ns -) 1,000 mls @ 75 mls/hr IV ASDIR [facility] Last Admin: 06/14/19 11:21 Dose: 75 mls/hr Documented by: Insulin Aspart (Novolog Vial Sliding Scale -) 1 vial SQ TIDAC [facility]; Protocol Last Admin: 06/14/19 11:22 Dose: Not Given Documented by: Mupirocin (Bactroban Ointment (For Decolonization) -) 1 applic NS BID [facility] Stop: 06/17/19 09:59 Last Admin: 06/14/19 11:22 Dose: 1 applic Documented by: Pantoprazole Sodium (Protonix Iv) 40 mg IVPUSH BID [facility] Last Admin: 06/14/19 11:22 Dose: 40 mg Documented by: Last Vital Signs Temp Pulse Resp BP Pulse Ox 98 F 72 18 147/61 97 06/14/19 10:00 06/14/19 12:10 06/14/19 12:00 06/14/19 12:00 06/14/19 12:10 unresponsive on vent Lungs venetd sounds Heart reg Abd soft CBC, BMP 06/13/19 06:15 06/14/19 06:00 IMP- sepsis/hypotension s/p acute resp failure - s/p extubation ODESSA beginning to improve but may needs better BP Plan- continue IVF monitor urine output follow renal profile
[2019-06-14] MEDS: CHLORHEXIDINE GLUCONATE 4% CLEANSER FOR DECOLONIZATION TP SCH (21:16)
[2019-06-15] MEDS ORDERED: PIPERACILLIN/TAZOBACTAM 3.375 GM VIAL IVPB ONE ×3 (02:08→17:52)
[2019-06-15] MEDS ORDERED: DEXTROSE 5%-WATER - 50 ML IVPB ONE ×3 (02:09→17:52)
[2019-06-15] MEDS: PIPERACILLIN/TAZOB 3.375 GM 3.375 GM in DEXTROSE 5%-WATER - 50 ML IVPB SCH ×3 (02:12→18:12)
[2019-06-15 06:38] LABS: BASO % 0.5 % (0-2.0); EOS % 2.5 % (0-4.5); HEMATOCRIT 28.3 % (32.4-45.2); HEMOGLOBIN 9.2 GM/dL (10.7-15.3); LYMPH % 7.7 % (8-40); MCH 31.8 pg (25.7-33.7); MCHC 32.7 g/dl (32.0-36.0); MEAN CELL VOLUME 97.4 fl (80-96); MEAN PLT VOLUME 8.6 fl (7.5-11.1); MONO % 4.1 % (3.8-10.2); NEUT % 85.2 % (42.8-82.8); PLATELET COUNT 357 K/MM3 (134-434); RBC 2.91 M/mm3 (3.60-5.2); RDW 15.1 % (11.6-15.6); WHITE BLOOD COUNT 13.8 K/mm3 (4.0-10.0)
[2019-06-15] MEDS: INSULIN SLIDING SCALE (NOVOLOG) 1 VIAL SQ SCH ×3 (06:52→16:56)
[2019-06-15 07:16] LABS: ALBUMIN 1.8 g/dl (3.4-5.0); BILIRUBIN,TOTAL 0.5 mg/dL (0.2-1); BLOOD UREA NITROGEN 35.4 mg/dL (7-18); CALCIUM 8.2 mg/dL (8.5-10.1); CREATININE 1.4 mg/dL (0.55-1.3); MAGNESIUM 2.6 mg/dL (1.8-2.4); PHOSPHOROUS 2.8 mg/dL (2.5-4.9); POTASSIUM 4.7 mmol/L (3.5-5.1); TOT PROT 6.3 g/dl (6.4-8.2)
[2019-06-15] MEDS: PANTOPRAZOLE SODIUM 40 MG VIAL IVPUSH SCH ×2 (10:03→22:04)
[2019-06-15] MEDS: MUPIROCIN 2% TOPICAL OINTMENT FOR DECOLONIZATION NS SCH (10:04)
--- NOTE | 2019-06-15 11:45 | PN ---
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 (short form) - Note 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: s: lethargic Current Medications Chlorhexidine Gluconate (Hibiclens For Decolonization -) 1 applic TP HS [facility] Last Admin: 06/14/19 21:16 Dose: 1 applic Documented by: Propofol (Diprivan -) 1,000,000 mcg in 100 mls @ 2.177 mls/hr IVPB TITR [facility]; Protocol Last Admin: 06/14/19 21:16 Dose: Not Given Documented by: Piperacillin Sod/Tazobactam (Sod 3.375 gm/ Dextrose) 50 mls @ 100 mls/hr IVPB Q8H-IV [facility]; Protocol Last Admin: 06/15/19 10:03 Dose: 100 mls/hr Documented by: Dextrose/Sodium Chloride (D5-1/2ns -) 1,000 mls @ 75 mls/hr IV ASDIR [facility] Last Admin: 06/14/19 11:21 Dose: 75 mls/hr Documented by: Insulin Aspart (Novolog Vial Sliding Scale -) 1 vial SQ TIDAC [facility]; Protocol Last Admin: 06/15/19 06:52 Dose: 4 units Documented by: Mupirocin (Bactroban Ointment (For Decolonization) -) 1 applic NS BID [facility] Stop: 06/17/19 09:59 Last Admin: 06/15/19 10:04 Dose: Not Given Documented by: Pantoprazole Sodium (Protonix Iv) 40 mg IVPUSH BID [facility] Last Admin: 06/15/19 10:03 Dose: 40 mg Documented by: Vital Signs Period Temp Pulse Resp BP Sys/Hall Pulse Ox Last 24 Hr 98 F-98.2 F 62-72 16-68 120-154/47-72 97-100 NAD CTAB RRR, nl s1 s2 soft, nt, nd +bs 2+ RLE edema not agitated lethargic no jaundice,diaphoresis cxr: clear lungs tele: sr ecg: sr, nl intervals, nonspec st-t changes, no sig change priors echo 02/2018: nl lvef, mild-mod mr a/p: 73 f hx htn, dm, pafib, cad/nstemi 2018, sent [facility] for am[facility], resp distress. sepsis, resp failure: -cont abx per ID -cont ivfs, bp stable w/o pressors -now extubated htn: -BP improved - resume home meds when taking PO pafib: -in sr here -hold home bb due to sepsis, low bp -hold home eliquis due to anemia, monitor hgb jeffery: -likely due to sepsis, cr improving with ivfs, abx cad, nstemi 2018: -Trops are borderline elevated with flat trend and nl ckmb, ecg w/o ischemic changes, no suggestion of ACS. Likely trop related to jeffery, sepsis. -holding home cardiac meds as above - echo ordered RLE edema - lower ext dopplers ordered
--- NOTE | 2019-06-15 11:58 | PN ---
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 (short form) - Note 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: extubated COVID ruled out awake and drowsy nodding to yes and no Vital Signs - 24 hr 06/14/19 06/14/19 06/14/19 12:00 12:10 14:00 Temperature Pulse Rate 72 72 Respiratory 18 68 H Rate Blood Pressure 147/61 138/72 O2 Sat by Pulse 97 Oximetry (%) 06/14/19 06/14/19 06/14/19 16:00 18:00 20:00 Temperature 98 F 98.2 F Pulse Rate 68 66 62 Respiratory 18 18 19 Rate Blood Pressure 120/47 L 154/60 137/64 O2 Sat by Pulse Oximetry (%) 06/14/19 06/14/19 06/15/19 21:00 22:00 00:00 Temperature Pulse Rate 67 71 Respiratory 17 22 H Rate Blood Pressure 142/59 L 142/62 O2 Sat by Pulse 100 Oximetry (%) 06/15/19 06/15/19 06/15/19 02:00 04:00 06:00 Temperature 98.0 F Pulse Rate 67 66 64 Respiratory 17 20 18 Rate Blood Pressure 150/60 140/48 L 153/61 O2 Sat by Pulse Oximetry (%) 06/15/19 06/15/19 06/15/19 08:00 09:00 10:00 Temperature Pulse Rate 66 65 Respiratory 21 H 21 H 16 Rate Blood Pressure 152/58 L 148/54 L O2 Sat by Pulse 100 Oximetry (%) Current Medications Generic Name Dose Route Start Last Admin Trade Name Freq PRN Reason Stop Dose Admin Chlorhexidine Gluconate 1 applic 06/12/19 22:00 06/14/19 21:16 Hibiclens For Decolonization - TP 1 applic HS [facility] Administration Propofol 1,000,000 mcg in 100 mls @ 2.177 mls/hr 06/11/19 21:45 06/14/19 21:16 Diprivan - IVPB Not Given TITR [facility] Protocol 5 MCG/KG/MIN Piperacillin Sod/Tazobactam 50 mls @ 100 mls/hr 06/12/19 18:00 06/15/19 10:03 Sod 3.375 gm/ Dextrose IVPB 100 mls/hr Q8H-IV [facility] Administration Protocol Dextrose/Sodium Chloride 1,000 mls @ 75 mls/hr 06/14/19 10:45 06/14/19 11:21 D5-1/2ns - IV 75 mls/hr ASDIR [facility] Administration Insulin Aspart 1 vial 06/12/19 07:00 06/15/19 06:52 Novolog Vial Sliding Scale - SQ 4 units TIDAC [facility] Administration Protocol Mupirocin 1 applic 06/12/19 10:00 06/15/19 10:04 Bactroban Ointment (For Decolonization) - NS 06/17/19 09:59 Not Given BID [facility] Pantoprazole Sodium 40 mg 06/12/19 10:00 06/15/19 10:03 Protonix Iv IVPUSH 40 mg BID [facility] Administration Laboratory Results - last 24 hr 06/11/19 06/14/19 06/14/19 21:20 10:51 17:03 WBC RBC Hgb Hct MCV MCH MCHC RDW Plt Count MPV Absolute Neuts (auto) Neutrophils % Lymphocytes % Monocytes % Eosinophils % Basophils % Nucleated RBC % Sodium Potassium Chloride Carbon Dioxide Anion Gap BUN Creatinine Est GFR (CKD-EPI)AfAm Est GFR (CKD-EPI)NonAf POC Glucometer 80 166 Random Glucose Calcium Phosphorus Magnesium Total Bilirubin AST ALT Alkaline Phosphatase Total Protein Albumin Random Vancomycin Coronavirus (PCR) Not detected 06/15/19 06/15/19 06/15/19 06:00 06:13 06:13 WBC 13.8 H RBC 2.91 L Hgb 9.2 L Hct 28.3 L MCV 97.4 H MCH 31.8 MCHC 32.7 RDW 15.1 Plt Count 357 MPV 8.6 Absolute Neuts (auto) 11.7 H Neutrophils % 85.2 H Lymphocytes % 7.7 L D Monocytes % 4.1 Eosinophils % 2.5 Basophils % 0.5 Nucleated RBC % 0 Sodium 154 H Potassium 4.7 Chloride 130 H Carbon Dioxide 17 L Anion Gap 7 L BUN 35.4 H Creatinine 1.4 H Est GFR (CKD-EPI)AfAm 43.40 Est GFR (CKD-EPI)NonAf 37.44 POC Glucometer Random Glucose 252 H Calcium 8.2 L Phosphorus 2.8 Magnesium 2.6 H Total Bilirubin 0.5 AST 29 ALT 22 Alkaline Phosphatase 80 Total Protein 6.3 L Albumin 1.8 L Random Vancomycin 17.6 Coronavirus (PCR) 06/15/19 06/15/19 06:49 11:32 WBC RBC Hgb Hct MCV MCH MCHC RDW Plt Count MPV Absolute Neuts (auto) Neutrophils % Lymphocytes % Monocytes % Eosinophils % Basophils % Nucleated RBC % Sodium Potassium Chloride Carbon Dioxide Anion Gap BUN Creatinine Est GFR (CKD-EPI)AfAm Est GFR (CKD-EPI)NonAf POC Glucometer 232 230 Random Glucose Calcium Phosphorus Magnesium Total Bilirubin AST ALT Alkaline Phosphatase Total Protein Albumin Random Vancomycin Coronavirus (PCR) Microbiology 06/11/19 20:57 Urine Culture - Final Urine - Urine Collado Klebsiella Pneumoniae Beta Hem Streptococcus Group G 06/12/19 09:32 Gram Stain - Final Sputum - Endotrachea Suction/Ventilator Sputum Culture - Final S Aureus Yeast Like Organism 06/11/19 20:57 Blood Culture - Final Blood - Peripheral Venous Staphylococcus Coagulase Neg 06/11/19 20:57 Blood Culture - Preliminary Blood - Peripheral Venous Staphylococcus Epidermidis Staphylococcus Coagulase Neg#2 06/14/19 07:00 Blood Culture - Preliminary Blood - Peripheral Venous NO GROWTH OBTAINED AFTER 24 HOURS, INCUBATION TO CONTINUE FOR 4 DAYS. 06/14/19 07:00 Blood Culture - Preliminary Blood - Peripheral Venous NO GROWTH OBTAINED AFTER 24 HOURS, INCUBATION TO CONTINUE FOR 4 DAYS. S1 s2 RRR Lungs decreased Abd- soft, NT edema+ PLAN ON antibiotics cultures repeated are negative iv fluids-- renal function and sodium improving on antibiotics swallow eval Problem List - Problems (1) Acute respiratory failure Code(s): J96.00 - ACUTE RESPIRATORY FAILURE, UNSP W HYPOXIA OR HYPERCAPNIA (2) Acute respiratory failure requiring reintubation Code(s): J96.00 - ACUTE RESPIRATORY FAILURE, UNSP W HYPOXIA OR HYPERCAPNIA (3) Sepsis Code(s): A41.9 - SEPSIS, UNSPECIFIED ORGANISM (4) Hypernatremia Code(s): E87.0 - HYPEROSMOLALITY AND HYPERNATREMIA (5) UTI (urinary tract infection) Code(s): N39.0 - URINARY TRACT INFECTION, SITE NOT SPECIFIED Qualifiers: Urinary tract infection type: site unspecified Hematuria presence: with hematuria Qualified Code(s): N39.0 - Urinary tract infection, site not specified; R31.9 - Hematuria, unspecified
[2019-06-15] MEDS: DEXTROSE 5%-0.45% SALINE 1,000 ML IV SCH (12:00)
--- NOTE | 2019-06-15 12:16 | PN ---
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, [employer] - Note 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: Selected Entries 06/15/19 06:00 Temperature 98.0 F Laboratory Tests 06/12/19 06/13/19 06/15/19 06:04 02:00 06:13 WBC 16.0 H 21.4 H 13.8 H 73 y/o woman from [facility] with a PMHx of HTN, DM, Hypothyriodism, NSTEMI (2018), Functional Quadriplegia. Who presents to the ED with fever, tachypnea, AMS. On arrival to the ED patient was in acute respiratory distress, Intubated in the ED Chart reviewed. extubated COVID ruled out Case discussed with PMD. Voice still weak post extubation. To defer Swallowing evaluation until stronger.
--- NOTE | 2019-06-15 12:49 | PN ---
Teaching Attending Note Name of Resident: Jayna Martinez ATTENDING PHYSICIAN STATEMENT I saw and evaluated the patient. I reviewed the resident's note and discussed the case with the resident. I agree with the resident's findings and plan as documented. SUBJECTIVE: Pt seen and examined in the ICU. Remains extubated, more awake, alert. No fevers recorded. OBJECTIVE: Vital Signs Period Temp Pulse Resp BP Sys/Hall Pulse Ox Last 24 Hr 98 F-98.2 F 62-71 16-68 120-154/47-72 100-100 Intake & Output 06/12/19 06/13/19 06/14/19 06/15/19 23:59 23:59 23:59 23:59 Intake Total 2018 2178 1350 525 Output Total 1000 1100 1800 300 Balance 1019 1078 -450 225 Weight 57 kg 72.575 kg 61.2 kg Gen: NAD at rest Heart: RRR Lung: decreased breath sounds at the bases Abd: soft, nontender Ext: no edema CBC, BMP 06/15/19 06:13 06/15/19 06:00 Active Medications Chlorhexidine Gluconate (Hibiclens For Decolonization -) 1 applic TP HS [facility] Last Admin: 06/14/19 21:16 Dose: 1 applic Documented by: Propofol (Diprivan -) 1,000,000 mcg in 100 mls @ 2.177 mls/hr IVPB TITR [facility]; Protocol Last Admin: 06/14/19 21:16 Dose: Not Given Documented by: Piperacillin Sod/Tazobactam (Sod 3.375 gm/ Dextrose) 50 mls @ 100 mls/hr IVPB Q8H-IV [facility]; Protocol Last Admin: 06/15/19 10:03 Dose: 100 mls/hr Documented by: Dextrose/Sodium Chloride (D5-1/2ns -) 1,000 mls @ 75 mls/hr IV ASDIR [facility] Last Admin: 06/14/19 11:21 Dose: 75 mls/hr Documented by: Insulin Aspart (Novolog Vial Sliding Scale -) 1 vial SQ TIDAC [facility]; Protocol Last Admin: 06/15/19 06:52 Dose: 4 units Documented by: Mupirocin (Bactroban Ointment (For Decolonization) -) 1 applic NS BID [facility] Stop: 06/17/19 09:59 Last Admin: 06/15/19 10:04 Dose: Not Given Documented by: Pantoprazole Sodium (Protonix Iv) 40 mg IVPUSH BID [facility] Last Admin: 06/15/19 10:03 Dose: 40 mg Documented by: ASSESSMENT AND PLAN: Acute Hypoxic Respiratory Failure improving UTI Gram Positive Bacteremia Severe Sepsis Lactic Acidosis Acute on Chronic Renal Failure +Troponins likely Demand Ischemia Hypernatremia/Dehydration HTN DM Hypothyroidism Anemia Dementia Functional Quadriplegia - continue antibiotics - f/u cultures, serologies - IVF, replace free water - monitor urine output, creatinine - monitor lytes - taper Fio2 to keep SpO2 >90% - aspiration precautions - DVT/GI prophylaxis - can monitor on floor
--- NOTE | 2019-06-15 14:17 | ECHO ---
Version: 1 Name: REYNALDO SMART Exam: Adult Echocardiogram Study Date: 06/15/2019, 1:18 PM Age: 73 Years MMode/2D Measurements & Calculations IVSd: 1.11 cm LVIDs: 2.5 cm LVIDd: 4.1 cm LVPWd: 0.81 cm LAV (MOD-bp): 51.5 ml ACS: 1.45 cm Ao root diam: 3.2 cm LVOT diam: 1.80 cm LA dimension: 3.7 cm Doppler Measurements & Calculations MV E max dwaine: 98.1 cm/sec Med E/e': 29.1 MV A max dwaine: 137.3 cm/sec Med Peak E' Dwaine: 3.4 cm/sec MV E/A: 0.71 Lat E/e': 25.8 Lat Peak E' Dwaine: 3.8 cm/sec Ao max P.1 mmHg OUMAR(I,D): 1.96 cm Ao mean P.3 mmHg LV V1 mean: 76.4 cm/sec Ao V2 max: 200.2 cm/sec LV V1 mean P.8 mmHg TR max dwaine: 179.9 cm/sec TR max P.9 mmHg Procedure A two-dimensional transthoracic echocardiogram with color flow and Doppler was performed. The patien t was in normal sinus rhythm during the exam. Left Ventricle The left ventricular size, thickness and function are normal. Diastolic dysfunction, Grade II, consi stent with elevated left atrial pressure. Right Ventricle Not well visualized but likely normal RV size and function. Atria The left atrial size is normal. Mitral Valve There is mild mitral valve thickening. There is trace mitral regurgitation. Tricuspid Valve The tricuspid valve is not well visualized, but is grossly normal. There is trace tricuspid regurgit ation. There was insufficient TR detected to calculate RV systolic pressure. Aortic Valve The aortic valve is not well visualized. There is mild to moderate aortic sclerosis.;. No hemodynami lu significant valvular aortic stenosis. Pulmonic Valve The pulmonic valve is not well visualized. Great Vessels The aortic root is normal size. Pericardium/Pleura Small pericardial effusion (<1cm). Tech Comments TDS due to orientation of patient's position (supine) and orientation of her heart. Summary Statements TDS due to orientation of patient's position (supine) and orientation of her heart. Diastolic dysfunction, Grade II, consistent with elevated left atrial pressure. The left atrial size is normal. There is trace tricuspid regurgitation. There was insufficient TR detected to calculate RV systolic pressure. No hemodynamically significant valvular aortic stenosis. Small pericardial effusion (<1cm) MD Trung Barnes 06/15/2019, 2:16 PM Ordering Physician: Marya Martinez Referring Physician: MARYA MARTINEZ Performed By: Kiya Orozco
[2019-06-15 16:21] VITALS: BMI 23.7
[2019-06-15] MEDS ORDERED: SODIUM CHLORIDE 0.45% 1,000 ML IV SCH (16:45)
--- NOTE | 2019-06-15 18:04 | PN ---
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, Physician History of Present Illness: Pt seen and examined at bedside. She is now extubated. - Current Medication List Current Medications: Active Medications Sodium Chloride (1/2 Normal Saline) 1,000 mls @ 75 mls/hr IV ASDIR [facility] Last Admin: 06/15/19 16:58 Dose: 75 mls/hr Documented by: Piperacillin Sod/Tazobactam (Sod 3.375 gm/ Dextrose) 50 mls @ 100 mls/hr IVPB Q8H-IV [facility]; Protocol Insulin Aspart (Novolog Vial Sliding Scale -) 1 vial SQ TIDAC [facility]; Protocol Pantoprazole Sodium (Protonix Iv) 40 mg IVPUSH BID [facility] - Objective Vital Signs: Vital Signs Temperature 98.7 F 06/15/19 16:00 Pulse Rate 67 06/15/19 16:00 Respiratory Rate 18 06/15/19 16:00 Blood Pressure 147/62 06/15/19 16:00 O2 Sat by Pulse Oximetry (%) 98 06/15/19 10:00 Constitutional: Yes: Calm Eyes: Yes: Conjunctiva Clear HENT: Yes: Atraumatic Cardiovascular: Yes: S1, S2 Respiratory: Yes: CTA Bilaterally Gastrointestinal: Yes: Soft Musculoskeletal: Yes: Muscle Weakness Edema: LLE: Trace, RLE: Trace Neurological: Yes: Other (awake) Labs: CBC, BMP 06/15/19 06:13 06/15/19 06:00 INR, PTT INR 1.44 (0.83-1.09) H 06/14/19 07:00 Assessment/Plan Current Medications Generic Name Dose Route Start Last Admin Trade Name Freq PRN Reason Stop Dose Admin Sodium Chloride 1,000 mls @ 75 mls/hr 06/15/19 16:45 06/15/19 16:58 1/2 Normal Saline IV 75 mls/hr ASDIR [facility] Administration Piperacillin Sod/Tazobactam 50 mls @ 100 mls/hr 06/15/19 18:00 Sod 3.375 gm/ Dextrose IVPB Q8H-IV [facility] Protocol Insulin Aspart 1 vial 06/16/19 07:00 Novolog Vial Sliding Scale - SQ TIDAC [facility] Protocol Pantoprazole Sodium 40 mg 06/15/19 22:00 Protonix Iv IVPUSH BID [facility] Impression 1. hypernatremia 2. sepsis 3. ODESSA resolving 4. resp failure 5. htn 6. dm Plan - sodium improving - renal function is improving - pt extubated - cont hypotonic fluids
[2019-06-16] MEDS ORDERED: PIPERACILLIN/TAZOBACTAM 3.375 GM VIAL IVPB ONE ×3 (03:04→17:30)
[2019-06-16] MEDS ORDERED: DEXTROSE 5%-WATER - 50 ML IVPB ONE ×3 (03:04→17:31)
[2019-06-16] MEDS: PIPERACILLIN/TAZOB 3.375 GM 3.375 GM in DEXTROSE 5%-WATER - 50 ML IVPB SCH ×3 (04:17→17:42)
[2019-06-16] MEDS: INSULIN SLIDING SCALE (NOVOLOG) 1 VIAL SQ SCH ×3 (05:59→17:42)
[2019-06-16 07:51] LABS: BASO % 0.7 % (0-2.0); EOS % 1.9 % (0-4.5); HEMATOCRIT 28.6 % (32.4-45.2); HEMOGLOBIN 9.4 GM/dL (10.7-15.3); LYMPH % 9.6 % (8-40); MCH 31.9 pg (25.7-33.7); MCHC 32.9 g/dl (32.0-36.0); MEAN PLT VOLUME 8.9 fl (7.5-11.1); MONO % 3.4 % (3.8-10.2); NEUT % 84.4 % (42.8-82.8); PLATELET COUNT 341 K/MM3 (134-434); RBC 2.95 M/mm3 (3.60-5.2); WHITE BLOOD COUNT 11.2 K/mm3 (4.0-10.0)
[2019-06-16 08:18] LABS: ALBUMIN 1.8 g/dl (3.4-5.0); BILIRUBIN,TOTAL 0.5 mg/dL (0.2-1); BLOOD UREA NITROGEN 21.5 mg/dL (7-18); CALCIUM 8.2 mg/dL (8.5-10.1); CREATININE 1.1 mg/dL (0.55-1.3); MAGNESIUM 2.2 mg/dL (1.8-2.4); PHOSPHOROUS 2.3 mg/dL (2.5-4.9); POTASSIUM 4.6 mmol/L (3.5-5.1)
[2019-06-16] MEDS: PANTOPRAZOLE SODIUM 40 MG VIAL IVPUSH SCH ×2 (10:13→22:09)
--- NOTE | 2019-06-16 10:30 | CONSULT ---
Admitting History and Physical - Primary Care Physician PCP: Tri Neri - Admission History of Present Illness: Per EMR- HISTORY OF PRESENT ILLNESS: Patient is a 73 year old female with PMH of functional quadriplegia, DM2, HTN, hypothyroidism, NSTEMI 2018 who was BIBEMS from [facility] with AMS, tachypneic, and fevers. At baseline, pt is alert and oriented x3. Has chronic denis. En route to ED, pt was satting 97% on 4L NC. On arrival, pt was altered and unable to provide history or ROS. Rectal temp of 101.1. Pt was tachypneic in 50s, successfully intubated by ED. When OG tube was placed, there was coffee ground and dark material in oropharynx. UA with massive bacteria, 3+ leukocyte esterase, trace ketones, 1+ blood. 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 Cardiovascular: Yes: AFIB, CHF, Deep Vein Thrombosis, HTN, Hyperlipdemia, [place] (NSTEMI) Heme/Onc: Yes: Anemia Endocrine: Yes: Diabetes Mellitus, Hypothyroidism - Smoking History Smoking history: Unknown if ever smoked Have you smoked in the past 12 months: No Aproximately how many cigarettes per day: 0 - Alcohol/Substance Use Hx Alcohol Use: No History of Substance Use: reports: None - Social History ADL: Support Services 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 History of Recent Travel: No History - Admission Reason For Visit: URINARY TRACT INFECTION,HYPERNATREMIA,SEPSIS - Diagnostics X-ray: Report Reviewed - General Mental Status: Awake and Alert, Able to Follow Commands, Forgetful, Vague Attention: Mild Impairment, Moderate Impairment Head/Neck Control: Needs Assist - Hearing Hearing: Functional Hearing Aide: (intubated,sedated) Speech Evaluation - Communication Primary Language: PERSIAN Communication: Yes: Simple Responses Oral Expression Ability: Yes: Moderate Impairment - Speech Production Intelligibility: Yes: Mildly Impaired, Moderately Impaired - Speech Characteristics Voice Loudness: Mildly Soft/Quiet Voice Pitch: Yes: Normal Voice Phonatory-based Quality: Yes: Dysphonia (mild (+)) Speech Clarity: < 75% Nasal Resonance: Normal Articulation: Yes: Imprecise Rate of Speech: Too Slow - Language/Auditory Comprehension Follows: Yes: 1 Stage Simple Commands Observation: Able to respond to yes/no queries: Yes, Yes/No Confusion: No, Comprehends Conversational Speech: Yes (simple), Benefits from Slow Speech: Yes, Benefits from Repetiton: Yes - Language/Verbal Expression Functional Communication Status: Yes: Mildly Impaired, Moderately Impaired - Swallow Evaluation/Bedside Assessment Current Nutritional Intake: NPO Oral Secretions: Yes: WFL Dentition: Yes: Adequate (teeth blackened), Missing Teeth Facial Symmetry at Rest: Symmetrical Jaw Position: Closed at Rest Against Resistance Opening: Weak Against Resistance Closing: Weak Pucker Lips: Weak Smile: Weak Lingual Movement: Symmetric, Reduced Protrusion Lingual Speed of Movement: Reduced Lingual Movement Strgth Against Opposition: Reduced Laryngeal Elevation: Impaired Laryngeal Movement: Labored,delay initiation Rate of Intake: WFL Bolus Size: Small Labial Seal: WFL Oral Prep Time: Increased Pocketing: None Timing of Swallow: Delayed Coughing/Throat Clear: No Change in Voice: No Recommendations - Speech Evaluation, Impression/Plan Impression: Mild dysphonia/hypophonia. Slow to respond, simple 1-2 words at a time. No oriented. Delayed but fairly brisk swallow. Weak oral phase/mastication. - Disposition Discharge to: [facility] Facility - Dysphagia Impressions/Plan Swallowing Skills: Impaired Dysphagia Impressions: Mild Impairment, Moderate Impairment *Silent aspiration: cannot be R/O at bedside Dysphagia Treatment Plan: Small Bites, Clear Pocket Food, Trial Feedings, Safe Rate, 1/2 tsp. at a time, Elevate HOB during feed, Other (mouth care before/after meals) Recommendations: Modified Barium Swallow (if cough, congestion, fever) - Recommendations Diet Consistency: Dysphagia Pureed Medication Administration: Crushed with applesauce Liquids: Thin Liquids Supplement: Ensure, Magic Cup, Ensure Pudding
--- NOTE | 2019-06-16 11:28 | PN ---
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 (short form) - Note 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: extubated COVID ruled out awake and alert speaking more Vital Signs - 24 hr 06/15/19 06/15/19 06/15/19 14:00 16:00 19:08 Temperature 99 F 98.7 F 97.6 F Pulse Rate 66 67 61 Respiratory 17 18 18 Rate Blood Pressure 133/57 L 147/62 140/57 L O2 Sat by Pulse Oximetry (%) 06/15/19 06/16/19 06/16/19 21:00 06:00 10:00 Temperature 98 F 97.6 F 98.0 F Pulse Rate 72 68 65 Respiratory 18 18 16 Rate Blood Pressure 138/55 L 150/65 157/73 O2 Sat by Pulse 98 Oximetry (%) Current Medications Generic Name Dose Route Start Last Admin Trade Name Freq PRN Reason Stop Dose Admin Sodium Chloride 1,000 mls @ 75 mls/hr 06/15/19 16:45 06/15/19 16:58 1/2 Normal Saline IV 75 mls/hr ASDIR LENI Administration Piperacillin Sod/Tazobactam 50 mls @ 100 mls/hr 06/15/19 18:00 06/16/19 10:13 Sod 3.375 gm/ Dextrose IVPB 100 mls/hr Q8H-IV LENI Administration Protocol Insulin Aspart 1 vial 06/16/19 07:00 06/16/19 05:59 Novolog Vial Sliding Scale - SQ Not Given TIDAC LENI Protocol Pantoprazole Sodium 40 mg 06/15/19 22:00 06/16/19 10:13 Protonix Iv IVPUSH 40 mg BID LENI Administration Laboratory Results - last 24 hr 06/12/19 06/15/19 06/15/19 02:09 11:32 16:36 WBC RBC Hgb Hct MCV MCH MCHC RDW Plt Count MPV Absolute Neuts (auto) Neutrophils % Lymphocytes % Monocytes % Eosinophils % Basophils % Nucleated RBC % Sodium Potassium Chloride Carbon Dioxide Anion Gap BUN Creatinine Est GFR (CKD-EPI)AfAm Est GFR (CKD-EPI)NonAf POC Glucometer 230 253 Random Glucose Calcium Phosphorus Magnesium Total Bilirubin AST ALT Alkaline Phosphatase Total Protein Albumin Blood Type B POSITIVE Antibody Screen Negative Crossmatch See Detail 06/16/19 06/16/19 06/16/19 05:47 06:30 06:30 WBC 11.2 H RBC 2.95 L Hgb 9.4 L Hct 28.6 L MCV 97.0 H MCH 31.9 MCHC 32.9 RDW 15.0 Plt Count 341 MPV 8.9 Absolute Neuts (auto) 9.4 H Neutrophils % 84.4 H Lymphocytes % 9.6 D Monocytes % 3.4 L Eosinophils % 1.9 Basophils % 0.7 Nucleated RBC % 0 Sodium 152 H Potassium 4.6 Chloride 128 H Carbon Dioxide 16 L Anion Gap 8 BUN 21.5 H Creatinine 1.1 Est GFR (CKD-EPI)AfAm 58.09 Est GFR (CKD-EPI)NonAf 50.12 POC Glucometer 185 Random Glucose 202 H Calcium 8.2 L Phosphorus 2.3 L Magnesium 2.2 Total Bilirubin 0.5 AST 27 ALT 22 Alkaline Phosphatase 79 Total Protein 6.0 L Albumin 1.8 L Blood Type Antibody Screen Crossmatch S1 s2 RRR Lungs decreased Abd- soft, NT edema+ PLAN ON antibiotics cultures repeated are negative iv fluids-- renal function and sodium improving on antibiotics swallow eval clinically improving Problem List - Problems (1) Acute respiratory failure Code(s): J96.00 - ACUTE RESPIRATORY FAILURE, UNSP W HYPOXIA OR HYPERCAPNIA (2) Acute respiratory failure requiring reintubation Code(s): J96.00 - ACUTE RESPIRATORY FAILURE, UNSP W HYPOXIA OR HYPERCAPNIA (3) Sepsis Code(s): A41.9 - SEPSIS, UNSPECIFIED ORGANISM (4) Hypernatremia Code(s): E87.0 - HYPEROSMOLALITY AND HYPERNATREMIA (5) UTI (urinary tract infection) Code(s): N39.0 - URINARY TRACT INFECTION, SITE NOT SPECIFIED Qualifiers: Urinary tract infection type: site unspecified Hematuria presence: with hematuria Qualified Code(s): N39.0 - Urinary tract infection, site not specified; R31.9 - Hematuria, unspecified
--- NOTE | 2019-06-16 12:48 | PN ---
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 (short form) - Note 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: Awake in NAD. No acute events overnight. Intake & Output 06/13/19 06/14/19 06/15/19 06/16/19 23:59 23:59 23:59 23:59 Intake Total 2178 1350 1260 350 Output Total 1100 1800 1600 300 Balance 1078 -450 -340 50 Weight 160 lb 134 lb 14.766 oz Last Vital Signs Temp Pulse Resp BP Pulse Ox 98.0 F 65 16 157/73 98 06/16/19 10:00 06/16/19 10:00 06/16/19 10:00 06/16/19 10:00 06/15/19 21:00 Active Medications Atenolol (Tenormin -) 25 mg PO DAILY LENI Sodium Chloride (1/2 Normal Saline) 1,000 mls @ 75 mls/hr IV ASDIR LENI Last Admin: 06/15/19 16:58 Dose: 75 mls/hr Documented by: Piperacillin Sod/Tazobactam (Sod 3.375 gm/ Dextrose) 50 mls @ 100 mls/hr IVPB Q8H-IV LENI; Protocol Last Admin: 06/16/19 10:13 Dose: 100 mls/hr Documented by: Insulin Aspart (Novolog Vial Sliding Scale -) 1 vial SQ TIDAC LENI; Protocol Last Admin: 06/16/19 11:58 Dose: 2 units Documented by: Levothyroxine Sodium (Synthroid -) 50 mcg PO ACBK LENI Pantoprazole Sodium (Protonix Iv) 40 mg IVPUSH BID LENI Last Admin: 06/16/19 10:13 Dose: 40 mg Documented by: Gen: NAD at rest Heart: RRR Lung: decreased breath sounds at the bases Abd: soft, nontender Ext: no edema Laboratory Results - last 24 hr 06/12/19 06/15/19 06/16/19 02:09 16:36 05:47 WBC RBC Hgb Hct MCV MCH MCHC RDW Plt Count MPV Absolute Neuts (auto) Neutrophils % Lymphocytes % Monocytes % Eosinophils % Basophils % Nucleated RBC % Sodium Potassium Chloride Carbon Dioxide Anion Gap BUN Creatinine Est GFR (CKD-EPI)AfAm Est GFR (CKD-EPI)NonAf POC Glucometer 253 185 Random Glucose Calcium Phosphorus Magnesium Total Bilirubin AST ALT Alkaline Phosphatase Total Protein Albumin Blood Type B POSITIVE Antibody Screen Negative Crossmatch See Detail 06/16/19 06/16/19 06/16/19 06:30 06:30 11:33 WBC 11.2 H RBC 2.95 L Hgb 9.4 L Hct 28.6 L MCV 97.0 H MCH 31.9 MCHC 32.9 RDW 15.0 Plt Count 341 MPV 8.9 Absolute Neuts (auto) 9.4 H Neutrophils % 84.4 H Lymphocytes % 9.6 D Monocytes % 3.4 L Eosinophils % 1.9 Basophils % 0.7 Nucleated RBC % 0 Sodium 152 H Potassium 4.6 Chloride 128 H Carbon Dioxide 16 L Anion Gap 8 BUN 21.5 H Creatinine 1.1 Est GFR (CKD-EPI)AfAm 58.09 Est GFR (CKD-EPI)NonAf 50.12 POC Glucometer 197 Random Glucose 202 H Calcium 8.2 L Phosphorus 2.3 L Magnesium 2.2 Total Bilirubin 0.5 AST 27 ALT 22 Alkaline Phosphatase 79 Total Protein 6.0 L Albumin 1.8 L Blood Type Antibody Screen Crossmatch ASSESSMENT AND PLAN: Acute Hypoxic Respiratory Failure improving UTI Gram Positive Bacteremia Severe Sepsis Lactic Acidosis Acute on Chronic Renal Failure +Troponins likely Demand Ischemia Hypernatremia/Dehydration HTN DM Hypothyroidism Anemia Dementia Functional Quadriplegia - ABX Per ID - IVF, replace free water - monitor urine output, creatinine - Supplemental O2 to maintain SpO2 >90% - aspiration precautions - DVT/GI prophylaxis Dr Paige
--- NOTE | 2019-06-16 12:56 | PN ---
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 (short form) - Note 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: s: denies chest pain, dizziness, dyspnea Current Medications Atenolol (Tenormin -) 25 mg PO DAILY [facility] Sodium Chloride (1/2 Normal Saline) 1,000 mls @ 75 mls/hr IV ASDIR LENI Last Admin: 06/15/19 16:58 Dose: 75 mls/hr Documented by: Piperacillin Sod/Tazobactam (Sod 3.375 gm/ Dextrose) 50 mls @ 100 mls/hr IVPB Q8H-IV LENI; Protocol Last Admin: 06/16/19 10:13 Dose: 100 mls/hr Documented by: Insulin Aspart (Novolog Vial Sliding Scale -) 1 vial SQ TIDAC [facility]; Protocol Last Admin: 06/16/19 11:58 Dose: 2 units Documented by: Levothyroxine Sodium (Synthroid -) 50 mcg PO ACBK LENI Pantoprazole Sodium (Protonix Iv) 40 mg IVPUSH BID LENI Last Admin: 06/16/19 10:13 Dose: 40 mg Documented by: Vital Signs Period Temp Pulse Resp BP Sys/Hall Pulse Ox Last 24 Hr 98 F-98.2 F 62-72 16-68 120-154/47-72 97-100 NAD CTAB RRR, nl s1 s2 soft, nt, nd +bs 2+ RLE edema not agitated lethargic no jaundice,diaphoresis cxr: clear lungs ecg: sr, nl intervals, nonspec st-t changes, no sig change priors echo 02/2018: nl lvef, mild-mod mr echo 05/2019 tds due to positioning, grade II diastolic dysfunction, elevated LA pressure, tr TR, no , sm pericardial effusion <1 cm, nl LV function, RV not well visualized likely nl function a/p: 73 f hx htn, dm, pafib, cad/nstemi 2018, sent [place] for ams, resp distress. sepsis, resp failure: -cont abx per ID - COVID-19 ruled out -cont ivfs, bp stable w/o pressors -now extubated htn: -BP improved - resume home meds when taking PO pafib: -in sr here -resume bb when taking PO -held home eliquis due to anemia, monitor hgb jeffery: -likely due to sepsis, cr improving with ivfs, abx cad, nstemi 2018: -Trops are borderline elevated with flat trend and nl ckmb, ecg w/o ischemic changes, no suggestion of ACS. Likely trop related to jeffery, sepsis. -holding home cardiac meds as above - echo nl LV function RLE edema - no DVT on lower ext dopplers
--- NOTE | 2019-06-16 14:58 | PN ---
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, Physician History of Present Illness: Pt seen and examined at bedside. She is awake and appears comfortable. She denies shortness of breath. - Current Medication List Current Medications: Active Medications Atenolol (Tenormin -) 25 mg PO DAILY LENI Sodium Chloride (1/2 Normal Saline) 1,000 mls @ 75 mls/hr IV ASDIR LENI Last Admin: 06/15/19 16:58 Dose: 75 mls/hr Documented by: Piperacillin Sod/Tazobactam (Sod 3.375 gm/ Dextrose) 50 mls @ 100 mls/hr IVPB Q8H-IV LENI; Protocol Last Admin: 06/16/19 10:13 Dose: 100 mls/hr Documented by: Insulin Aspart (Novolog Vial Sliding Scale -) 1 vial SQ TIDAC [facility]; Protocol Last Admin: 06/16/19 11:58 Dose: 2 units Documented by: Levothyroxine Sodium (Synthroid -) 50 mcg PO ACBK LENI Pantoprazole Sodium (Protonix Iv) 40 mg IVPUSH BID [facility] Last Admin: 06/16/19 10:13 Dose: 40 mg Documented by: - Objective Vital Signs: Vital Signs Temperature 97.9 F 06/16/19 13:36 Pulse Rate 66 06/16/19 13:36 Respiratory Rate 20 06/16/19 13:36 Blood Pressure 158/77 06/16/19 13:36 O2 Sat by Pulse Oximetry (%) 98 06/15/19 21:00 Constitutional: Yes: Calm Eyes: Yes: Conjunctiva Clear HENT: Yes: Atraumatic Neck: Yes: Supple Cardiovascular: Yes: S1, S2 Respiratory: Yes: CTA Bilaterally Gastrointestinal: Yes: Soft Genitourinary: Yes: [place] Present Musculoskeletal: Yes: Muscle Weakness Edema: No Neurological: Yes: Oriented Psychiatric: Yes: Oriented Labs: CBC, BMP 06/16/19 06:30 06/16/19 06:30 INR, PTT INR 1.44 (0.83-1.09) H 06/14/19 07:00 Assessment/Plan Current Medications Generic Name Dose Route Start Last Admin Trade Name Freq PRN Reason Stop Dose Admin Atenolol 25 mg 06/17/19 10:00 Tenormin - PO DAILY LENI Sodium Chloride 1,000 mls @ 75 mls/hr 06/15/19 16:45 06/15/19 16:58 1/2 Normal Saline IV 75 mls/hr ASDIR LENI Administration Piperacillin Sod/Tazobactam 50 mls @ 100 mls/hr 06/15/19 18:00 06/16/19 10:13 Sod 3.375 gm/ Dextrose IVPB 100 mls/hr Q8H-IV LENI Administration Protocol Insulin Aspart 1 vial 06/16/19 07:00 06/16/19 11:58 Novolog Vial Sliding Scale - SQ 2 units TIDAC LENI Administration Protocol Levothyroxine Sodium 50 mcg 06/17/19 07:00 Synthroid - PO ACBK LENI Pantoprazole Sodium 40 mg 06/15/19 22:00 06/16/19 10:13 Protonix Iv IVPUSH 40 mg BID LENI Administration Laboratory Tests 06/16/19 06:30 Sodium 152 H Potassium 4.6 Creatinine 1.1 Calcium 8.2 L Phosphorus 2.3 L Impression 1. hypernatremia 2. sepsis 3. ODESSA resolving 4. resp failure 5. htn 6. 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
[2019-06-16] MEDS ORDERED: DEXTROSE 5%-WATER - 1,000 ML IV SCH (15:00)
[2019-06-16] MEDS ORDERED: VANCOMYCIN 1 GRAM (PRE-DOCKED) 1,000 MG/250 ML BAG IVPB ONE (17:30)
[2019-06-16] MEDS: NAPH,MB-DB/K PH,MBDB POWDER PACKET PO SCH ×2 (17:43→22:09)
--- NOTE | 2019-06-16 22:31 | PN ---
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, Physician History of Present Illness: REMAINS EXTUBATED TEMPS DOWN AFEBRILE WBC IMPROVED BC SCN MIXED URINE C/S MIXED SPUTUM C/S MRSA, YEAST AZOTEMIA IMPROVED - Current Medication List Current Medications: Active Medications Atenolol (Tenormin -) 25 mg PO DAILY [facility] Piperacillin Sod/Tazobactam (Sod 3.375 gm/ Dextrose) 50 mls @ 100 mls/hr IVPB Q8H-IV LENI; Protocol Last Admin: 06/16/19 17:42 Dose: 100 mls/hr Documented by: Dextrose (D5w -) 1,000 mls @ 75 mls/hr IV ASDIR LENI Last Admin: 06/16/19 15:48 Dose: 75 mls/hr Documented by: Insulin Aspart (Novolog Vial Sliding Scale -) 1 vial SQ TIDAC [facility]; Protocol Last Admin: 06/16/19 17:42 Dose: 10 units Documented by: Levothyroxine Sodium (Synthroid -) 50 mcg PO ACBK LENI Pantoprazole Sodium (Protonix Iv) 40 mg IVPUSH BID LENI Last Admin: 06/16/19 22:09 Dose: 40 mg Documented by: Potassium Phos/Sodium Phos (Phos-Nak Packet -) 1 packet PO TID LENI Stop: 06/17/19 14:01 Last Admin: 06/16/19 22:09 Dose: 1 packet Documented by: - Objective Vital Signs: Vital Signs Temperature 98.3 F 06/16/19 17:36 Pulse Rate 71 06/16/19 17:36 Respiratory Rate 18 06/16/19 17:36 Blood Pressure 136/59 L 06/16/19 17:36 O2 Sat by Pulse Oximetry (%) 98 06/16/19 09:00 Constitutional: Yes: No Distress Cardiovascular: Yes: Regular Rate and Rhythm, S1, S2 Respiratory: Yes: Diminished Gastrointestinal: Yes: Normal Bowel Sounds, Soft. No: Tenderness Labs: CBC, BMP 06/16/19 06:30 06/16/19 06:30 INR, PTT INR 1.44 (0.83-1.09) H 06/14/19 07:00 Assessment/Plan RESPIRATORY FAILURE S/P EXTUBATION SEPSIS R/O SEPTIC SHOCK IMPROVED UTI/ R/O SEPSIS SECONDARY TO UTI +BC R/O STAPH BACTEREMIA/ SEPSIS TOXIC METABOLIC ENCEPHALOPATHY/ OBS LACTIC ACIDOSIS AZOTEMIA IMPROVED REDOSE VANCOMYCIN X1 CONTINUE ZOSYN
[2019-06-17] MEDS ORDERED: PIPERACILLIN/TAZOBACTAM 3.375 GM VIAL IVPB ONE ×4 (01:00→16:35)
[2019-06-17] MEDS ORDERED: DEXTROSE 5%-WATER - 50 ML IVPB ONE ×3 (01:00→16:35)
[2019-06-17] MEDS: PIPERACILLIN/TAZOB 3.375 GM 3.375 GM in DEXTROSE 5%-WATER - 50 ML IVPB SCH ×2 (01:08→09:49)
[2019-06-17] MEDS: NAPH,MB-DB/K PH,MBDB POWDER PACKET PO SCH ×2 (05:35→15:34)
[2019-06-17] MEDS ORDERED: INSULIN (NOVOLOG) ASPART 100 UNITS/ML 10ML VIAL SQ ONE (06:07)
[2019-06-17] MEDS: LEVOTHYROXINE NA 50 MCG TABLET (FP) PO SCH (06:37)
[2019-06-17] MEDS: INSULIN SLIDING SCALE (NOVOLOG) 1 VIAL SQ SCH ×4 (07:01→16:54)
--- NOTE | 2019-06-17 09:37 | PN ---
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 (short form) - Note 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: s: denies chest pain, dizziness, dyspnea palps Current Medications Generic Name Dose Route Start Last Admin Trade Name Marino PRN Reason Stop Dose Admin Atenolol 25 mg 06/17/19 10:00 Tenormin - PO DAILY LENI Piperacillin Sod/Tazobactam 50 mls @ 100 mls/hr 06/15/19 18:00 06/17/19 01:08 Sod 3.375 gm/ Dextrose IVPB 100 mls/hr Q8H-IV LENI Administration Protocol Dextrose 1,000 mls @ 75 mls/hr 06/16/19 15:00 06/16/19 15:48 D5w - IV 75 mls/hr ASDIR LENI Administration Insulin Aspart 1 vial 06/16/19 07:00 06/17/19 07:01 Novolog Vial Sliding Scale - SQ Not Given TIDAC LENI Protocol Levothyroxine Sodium 50 mcg 06/17/19 07:00 06/17/19 06:37 Synthroid - PO 50 mcg ACBK LENI Administration Pantoprazole Sodium 40 mg 06/15/19 22:00 06/16/19 22:09 Protonix Iv IVPUSH 40 mg BID LENI Administration Potassium Phos/Sodium Phos 1 packet 06/16/19 15:00 06/17/19 05:35 Phos-Nak Packet - PO 06/17/19 14:01 1 packet TID LENI Administration Vital Signs Period Temp Pulse Resp BP Sys/Hall Pulse Ox Last 24 Hr 97.9 F-98.3 F 62-71 16-20 136-163/59-77 98 NAD CTAB RRR, nl s1 s2 soft, nt, nd +bs no le edema not agitated awake alert no jaundice,diaphoresis CBC, BMP 06/16/19 06:30 06/16/19 06:30 cxr: clear lungs ecg: sr, nl intervals, nonspec st-t changes, no sig change priors echo 02/2018: nl lvef, mild-mod mr echo 05/2019 tds due to positioning, grade II diastolic dysfunction, elevated LA pressure, tr TR, no , sm pericardial effusion <1 cm, nl LV function, RV not well visualized likely nl function a/p: 73 f hx htn, dm, pafib, cad/nstemi 2017, sent from [place] for [place]s, resp distress. sepsis, resp failure: -cont abx per ID - COVID-19 ruled out -cont ivfs, bp stable w/o pressors -now extubated htn: -cont bb pafib: -in sr here -cont bb -held home eliquis due to anemia, monitor hgb jeffery: -likely due to sepsis, cr improving with ivfs, abx cad, nstemi 2018: -Trops are borderline elevated with flat trend and nl ckmb, ecg w/o ischemic changes, no suggestion of ACS. Likely trop related to jeffery, sepsis. -cont bb - echo nl LV function RLE edema - no DVT on lower ext dopplers
[2019-06-17] MEDS: PANTOPRAZOLE SODIUM 40 MG VIAL IVPUSH SCH ×2 (09:49→21:00)
[2019-06-17] MEDS: ATENOLOL 25 MG TABLET (FP) PO SCH (09:57)
--- NOTE | 2019-06-17 10:55 | PN ---
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 (short form) - Note 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: COVID ruled out awake and alert speaking more Vital Signs - 24 hr 06/16/19 06/16/19 06/16/19 13:36 17:36 21:00 Temperature 97.9 F 98.3 F Pulse Rate 66 71 Respiratory 20 18 18 Rate Blood Pressure 158/77 136/59 L O2 Sat by Pulse 98 Oximetry (%) 06/16/19 06/17/19 06/17/19 22:00 06:00 09:51 Temperature 98 F 98.2 F 97.2 F L Pulse Rate 68 62 65 Respiratory 20 20 18 Rate Blood Pressure 138/71 163/62 143/53 L O2 Sat by Pulse Oximetry (%) Current Medications Generic Name Dose Route Start Last Admin Trade Name Freq PRN Reason Stop Dose Admin Atenolol 25 mg 06/17/19 10:00 06/17/19 09:57 Tenormin - PO 25 mg DAILY LENI Administration Piperacillin Sod/Tazobactam 50 mls @ 100 mls/hr 06/15/19 18:00 06/17/19 09:49 Sod 3.375 gm/ Dextrose IVPB 100 mls/hr Q8H-IV LENI Administration Protocol Dextrose 1,000 mls @ 75 mls/hr 06/16/19 15:00 06/16/19 15:48 D5w - IV 75 mls/hr ASDIR LENI Administration Insulin Aspart 1 vial 06/16/19 07:00 06/17/19 11:48 Novolog Vial Sliding Scale - SQ 10 units TIDAC LENI Administration Protocol Levothyroxine Sodium 50 mcg 06/17/19 07:00 06/17/19 06:37 Synthroid - PO 50 mcg ACBK LENI Administration Pantoprazole Sodium 40 mg 06/15/19 22:00 06/17/19 09:49 Protonix Iv IVPUSH 40 mg BID LENI Administration Potassium Phos/Sodium Phos 1 packet 06/16/19 15:00 06/17/19 05:35 Phos-Nak Packet - PO 06/17/19 14:01 1 packet TID LENI Administration Laboratory Results - last 24 hr 06/16/19 06/17/19 06/17/19 17:39 05:50 06:30 Sodium 145 Potassium 4.6 Chloride 119 H Carbon Dioxide 18 L Anion Gap 8 BUN 20.5 H Creatinine 1.3 Est GFR (CKD-EPI)AfAm 47.46 Est GFR (CKD-EPI)NonAf 40.95 POC Glucometer 382 417 Random Glucose 442 H* Calcium 8.2 L Random Vancomycin 06/17/19 06/17/19 06:50 11:23 Sodium Potassium Chloride Carbon Dioxide Anion Gap BUN Creatinine Est GFR (CKD-EPI)AfAm Est GFR (CKD-EPI)NonAf POC Glucometer 471 Random Glucose Calcium Random Vancomycin 19.2 S1 s2 RRR Lungs decreased Abd- soft, NT edema+ PLAN ON antibiotics cultures repeated are negative iv fluids-- renal function and sodium improving-- may change the fluids on antibiotics swallow eval noted clinically improving Problem List - Problems (1) Acute respiratory failure Code(s): J96.00 - ACUTE RESPIRATORY FAILURE, UNSP W HYPOXIA OR HYPERCAPNIA (2) Acute respiratory failure requiring reintubation Code(s): J96.00 - ACUTE RESPIRATORY FAILURE, UNSP W HYPOXIA OR HYPERCAPNIA (3) Sepsis Code(s): A41.9 - SEPSIS, UNSPECIFIED ORGANISM (4) Hypernatremia Code(s): E87.0 - HYPEROSMOLALITY AND HYPERNATREMIA (5) UTI (urinary tract infection) Code(s): N39.0 - URINARY TRACT INFECTION, SITE NOT SPECIFIED Qualifiers: Urinary tract infection type: site unspecified Hematuria presence: with hematuria Qualified Code(s): N39.0 - Urinary tract infection, site not specified; R31.9 - Hematuria, unspecified
--- NOTE | 2019-06-17 11:11 | PN ---
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4 H 13.8 H 11.2 H Tolerating diet well with good appetite.
--- NOTE | 2019-06-17 12:24 | PN ---
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 (short form) - Note 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: 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: No acute events overnight. VSS/AFEBRILE Gen: NAD at rest Heart: RRR Lung: decreased breath sounds at the bases Abd: soft, nontender Ext: no edema LABS/MEDS/NOTES/CHART REVIEWED ASSESSMENT AND PLAN: Acute Hypoxic Respiratory Failure improving UTI Gram Positive Bacteremia Severe Sepsis Lactic Acidosis Acute on Chronic Renal Failure +Troponins likely Demand Ischemia Hypernatremia/Dehydration HTN DM Hypothyroidism Anemia Dementia Functional Quadriplegia - ABX Per ID - IVF, replace free water - monitor urine output, creatinine - Supplemental O2 to maintain SpO2 >90% - aspiration precautions - DVT/GI prophylaxis Loretta PABON MD
[2019-06-17 12:39] LABS: BLOOD UREA NITROGEN 20.5 mg/dL (7-18); CALCIUM 8.2 mg/dL (8.5-10.1); CREATININE 1.3 mg/dL (0.55-1.3); POTASSIUM 4.6 mmol/L (3.5-5.1)
[2019-06-17] MEDS ORDERED: SODIUM CHLORIDE 0.45% 1,000 ML IV SCH ×2 (13:00)
--- NOTE | 2019-06-17 13:03 | PN ---
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, Physician History of Present Illness: Pt seen and examined at bedside. She is awake and appears comfortable. - Current Medication List Current Medications: Active Medications Atenolol (Tenormin -) 25 mg PO DAILY [facility] Last Admin: 06/17/19 09:57 Dose: 25 mg Documented by: Piperacillin Sod/Tazobactam (Sod 3.375 gm/ Dextrose) 50 mls @ 100 mls/hr IVPB Q8H-IV [facility]; Protocol Last Admin: 06/17/19 09:49 Dose: 100 mls/hr Documented by: Sodium Chloride (1/2 Normal Saline) 1,000 mls @ 60 mls/hr IV ASDIR [facility] Insulin Aspart (Novolog Vial Sliding Scale -) 1 vial SQ TIDAC [facility]; Protocol Last Admin: 06/17/19 11:48 Dose: 10 units Documented by: Levothyroxine Sodium (Synthroid -) 50 mcg PO ACBK [facility] Last Admin: 06/17/19 06:37 Dose: 50 mcg Documented by: Pantoprazole Sodium (Protonix Iv) 40 mg IVPUSH BID [facility] Last Admin: 06/17/19 09:49 Dose: 40 mg Documented by: Potassium Phos/Sodium Phos (Phos-Nak Packet -) 1 packet PO TID [facility] Stop: 06/17/19 14:01 Last Admin: 06/17/19 05:35 Dose: 1 packet Documented by: - Objective Vital Signs: Vital Signs Temperature 97.2 F L 06/17/19 09:51 Pulse Rate 65 06/17/19 09:51 Respiratory Rate 18 06/17/19 09:51 Blood Pressure 143/53 L 06/17/19 09:51 O2 Sat by Pulse Oximetry (%) 98 06/16/19 21:00 Constitutional: Yes: Calm Eyes: Yes: Conjunctiva Clear HENT: Yes: Atraumatic Neck: Yes: Supple Cardiovascular: Yes: S1, S2 Respiratory: Yes: CTA Bilaterally Gastrointestinal: Yes: Soft Genitourinary: Yes: Incontinence Musculoskeletal: Yes: Muscle Weakness Edema: Yes Edema: LLE: 1+, RLE: 1+ Neurological: Yes: Facial Droop Labs: CBC, BMP 06/16/19 06:30 06/17/19 06:30 INR, PTT INR 1.44 (0.83-1.09) H 06/14/19 07:00 Assessment/Plan Current Medications Generic Name Dose Route Start Last Admin Trade Name Marino PRN Reason Stop Dose Admin Atenolol 25 mg 06/17/19 10:00 06/17/19 09:57 Tenormin - PO 25 mg DAILY [facility] Administration Piperacillin Sod/Tazobactam 50 mls @ 100 mls/hr 06/15/19 18:00 06/17/19 09:49 Sod 3.375 gm/ Dextrose IVPB 100 mls/hr Q8H-IV [facility] Administration Protocol Sodium Chloride 1,000 mls @ 60 mls/hr 06/17/19 13:00 1/2 Normal Saline IV ASDIR [facility] Insulin Aspart 1 vial 06/16/19 07:00 06/17/19 11:48 Novolog Vial Sliding Scale - SQ 10 units TIDAC [facility] Administration Protocol Levothyroxine Sodium 50 mcg 06/17/19 07:00 06/17/19 06:37 Synthroid - PO 50 mcg ACBK [facility] Administration Pantoprazole Sodium 40 mg 06/15/19 22:00 06/17/19 09:49 Protonix Iv IVPUSH 40 mg BID [facility] Administration Potassium Phos/Sodium Phos 1 packet 06/16/19 15:00 06/17/19 05:35 Phos-Nak Packet - PO 06/17/19 14:01 1 packet TID [facility] Administration Impression 1. hypernatremia 2. sepsis 3. ODESSA resolving 4. resp failure 5. htn 6. dm Plan - d/c d5w - change to / ns - monitor renal function - monitor sodium - repeat labs in am
[2019-06-17] MEDS: SODIUM CHLORIDE 0.45% 1,000 ML IV SCH (13:47)
--- NOTE | 2019-06-17 16:40 | PN ---
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, Physician History of Present Illness: AWAKE IN BED OFFERS NO COMPLAINTS TEMPS DOWN AFEBRILE WBC IMPROVED BC SCN MIXED URINE C/S MIXED SPUTUM C/S MRSA, YEAST AZOTEMIA IMPROVED - Current Medication List Current Medications: Active Medications Atenolol (Tenormin -) 25 mg PO DAILY [facility] Last Admin: 06/17/19 09:57 Dose: 25 mg Documented by: Piperacillin Sod/Tazobactam (Sod 3.375 gm/ Dextrose) 50 mls @ 100 mls/hr IVPB Q8H-IV [facility]; Protocol Last Admin: 06/17/19 09:49 Dose: 100 mls/hr Documented by: Sodium Chloride (1/2 Normal Saline) 1,000 mls @ 80 mls/hr IV ASDIR [facility] Last Admin: 06/17/19 13:47 Dose: 80 mls/hr Documented by: Insulin Aspart (Novolog Vial Sliding Scale -) 1 vial SQ TIDAC [facility]; Protocol Last Admin: 06/17/19 13:45 Dose: 8 units Documented by: Insulin Detemir (Levemir Vial) 18 units SQ 0700,2200 [facility] Levothyroxine Sodium (Synthroid -) 50 mcg PO ACBK [facility] Last Admin: 06/17/19 06:37 Dose: 50 mcg Documented by: Pantoprazole Sodium (Protonix Iv) 40 mg IVPUSH BID [facility] Last Admin: 06/17/19 09:49 Dose: 40 mg Documented by: - Objective Vital Signs: Vital Signs Temperature 98.1 F 06/17/19 14:23 Pulse Rate 57 L 06/17/19 14:23 Respiratory Rate 20 06/17/19 14:23 Blood Pressure 152/73 06/17/19 14:23 O2 Sat by Pulse Oximetry (%) 99 06/17/19 09:00 Constitutional: Yes: No Distress Cardiovascular: Yes: Regular Rate and Rhythm, S1, S2 Respiratory: Yes: Diminished Gastrointestinal: Yes: Normal Bowel Sounds, Soft. No: Tenderness Labs: CBC, BMP 06/16/19 06:30 06/17/19 06:30 INR, PTT INR 1.44 (0.83-1.09) H 06/14/19 07:00 Assessment/Plan RESPIRATORY FAILURE S/P EXTUBATION SEPSIS R/O SEPTIC SHOCK IMPROVED UTI/ R/O SEPSIS SECONDARY TO UTI +BC R/O STAPH BACTEREMIA/ SEPSIS TOXIC METABOLIC ENCEPHALOPATHY/ OBS LACTIC ACIDOSIS AZOTEMIA IMPROVED REDOSED VANCOMYCIN X1 CHECK LEVEL AM SUBSTITUTE CEFTRIAXONE
[2019-06-17] MEDS: INSULIN (LEVEMIR) 100 UNITS/ML UNITS SQ SCH (21:00)
[2019-06-18] MEDS: LEVOTHYROXINE NA 50 MCG TABLET (FP) PO SCH (06:10)
[2019-06-18] MEDS: INSULIN (LEVEMIR) 100 UNITS/ML UNITS SQ SCH ×2 (06:11→21:10)
[2019-06-18] MEDS: INSULIN SLIDING SCALE (NOVOLOG) 1 VIAL SQ SCH ×3 (06:12→17:27)
[2019-06-18 07:44] LABS: BILIRUBIN,TOTAL 0.2 mg/dL (0.2-1); BLOOD UREA NITROGEN 20.4 mg/dL (7-18); CALCIUM 8.3 mg/dL (8.5-10.1); CREATININE 1.2 mg/dL (0.55-1.3); MAGNESIUM 1.8 mg/dL (1.8-2.4); PHOSPHOROUS 1.8 mg/dL (2.5-4.9); POTASSIUM 4.3 mmol/L (3.5-5.1); TOT PROT 6.4 g/dl (6.4-8.2)
--- NOTE | 2019-06-18 09:24 | PN ---
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, Physician Chief Complaint: Denies CP, SOB History of Present Illness: s/p resp failure PAF CAD - Current Medication List Current Medications: Active Medications Atenolol (Tenormin -) 25 mg PO DAILY [facility] Last Admin: 06/17/19 09:57 Dose: 25 mg Documented by: Sodium Chloride (1/2 Normal Saline) 1,000 mls @ 80 mls/hr IV ASDIR [facility] Last Admin: 06/17/19 13:47 Dose: 80 mls/hr Documented by: Ceftriaxone Sodium 2 gm/ (Dextrose) 100 mls @ 200 mls/hr IVPB DAILY [facility]; Protocol Insulin Aspart (Novolog Vial Sliding Scale -) 1 vial SQ TIDAC [facility]; Protocol Last Admin: 06/18/19 06:12 Dose: 2 units Documented by: Insulin Detemir (Levemir Vial) 18 units SQ 0700,2200 [facility] Last Admin: 06/18/19 06:11 Dose: 18 units Documented by: Levothyroxine Sodium (Synthroid -) 50 mcg PO ACBK [facility] Last Admin: 06/18/19 06:10 Dose: 50 mcg Documented by: Pantoprazole Sodium (Protonix Iv) 40 mg IVPUSH BID [facility] Last Admin: 06/17/19 21:00 Dose: 40 mg Documented by: - Objective Vital Signs: Vital Signs Temperature 98.5 F 06/18/19 06:05 Pulse Rate 66 06/18/19 06:05 Respiratory Rate 20 06/18/19 06:05 Blood Pressure 130/56 L 06/18/19 06:05 O2 Sat by Pulse Oximetry (%) 100 06/17/19 21:00 Constitutional: Yes: No Distress, Calm Eyes: Yes: Conjunctiva Clear, EOM Intact Cardiovascular: Yes: Regular Rate and Rhythm Respiratory: Yes: CTA Bilaterally (clear anteriorly and posteriorly with mildly diminished basilar breath sounds, no wheezing) Gastrointestinal: Yes: Soft (NT, no rebound, mild distension) Edema: Yes Edema: LLE: 1+ (venodynes), RLE: 1+ (venodynes) Neurological: Yes: Alert ...Motor Strength: WNL Labs: CBC, BMP 06/16/19 06:30 06/18/19 05:45 INR, PTT INR 1.44 (0.83-1.09) H 06/14/19 07:00 Assessment/Plan cxr: clear lungs ecg: sr, nl intervals, nonspec st-t changes, no sig change priors echo 02/2018: nl lvef, mild-mod mr echo 05/2019 tds due to positioning, grade II diastolic dysfunction, elevated LA pressure, tr TR, no , sm pericardial effusion <1 cm, nl LV function, RV not well visualized likely nl function a/p: 73 f hx htn, dm, pafib, cad/nstemi 2018, sent [place] for [place], resp distress. sepsis, resp failure: -cont abx per ID - COVID-19 ruled out -bp stable w/o pressors -now extubated htn: -cont bb pafib: -in sr here -cont bb -held home eliquis due to anemia. Stool guaiac negative x1 -was transfused, Hb improved, follow H/H -Consider resuming Eliquis prior to discharge jeffery: -likely due to sepsis, cr improving with ivfs, abx cad, nstemi 2018: -Trops are borderline elevated with flat trend and nl ckmb, ecg w/o ischemic changes, no suggestion of ACS. Likely trop related to jeffery, sepsis. -cont bb - echo nl LV function RLE edema: - no DVT on lower ext dopplers
[2019-06-18] MEDS ORDERED: DEXTROSE 5%-WATER 100 ML IVPB ONE (09:48)
[2019-06-18] MEDS: PANTOPRAZOLE SODIUM 40 MG VIAL IVPUSH SCH (10:07)
[2019-06-18] MEDS: CEFTRIAXONE 2 GM in DEXTROSE 5%-WATER 100 ML IVPB SCH (10:07)
[2019-06-18] MEDS: ATENOLOL 25 MG TABLET (FP) PO SCH (10:07)
--- NOTE | 2019-06-18 10:25 | PN ---
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, [employer] - Note 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: Selected Entries 06/17/19 06/17/19 06/18/19 09:21 14:58 01:32 Breakfast 100% Diet Tolerated Well Well Lunch 75% Temperature 98.4 F 06/18/19 06/18/19 06:05 09:40 Breakfast 75% Diet Tolerated Well Lunch Temperature 98.5 F afebrile, o2 sat. >95% on 2 l NC. No s/s of respiratory distress noted
--- NOTE | 2019-06-18 10:35 | PN ---
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 (short form) - Note 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: Pt seen/ examined on floor chart is reviewed awake/ comfortable feels well denies pain alert/ awake Vital Signs Temp 98.5 F 06/18/19 06:05 Pulse 66 06/18/19 06:05 Resp 20 06/18/19 06:05 BP 130/56 L 06/18/19 06:05 Pulse Ox 100 06/17/19 21:00 Intake & Output 06/17/19 06/17/19 06/18/19 11:59 23:59 11:59 Intake Total 1062 1170 800 Output Total 1200 900 800 Balance -138 270 0 Intake: IV 825 770 560 1/2 Normal Saline 1,000 770 560 ml @ 80 mls/hr IV ASDIR [facility] Rx#:[id number] D5w - 1,000 ml @ 75 mls/ 825 hr IV ASDIR [facility] Rx#: [id number] IVPB 100 Oral 300 240 Oral Supplement 237 Output: Urine 1200 900 800 Collado 1200 900 800 Other: Voiding Method Indwelling Catheter Indwelling Catheter Indwelling Catheter Bowel Movement Yes Yes Yes Active Medications Apixaban (Eliquis -) 5 mg PO BID [facility] Atenolol (Tenormin -) 25 mg PO DAILY [facility] Last Admin: 06/18/19 10:07 Dose: 25 mg Documented by: Sodium Chloride (1/2 Normal Saline) 1,000 mls @ 80 mls/hr IV ASDIR [facility] Last Admin: 06/17/19 13:47 Dose: 80 mls/hr Documented by: Ceftriaxone Sodium 2 gm/ (Dextrose) 100 mls @ 200 mls/hr IVPB DAILY [facility]; Prot ocol Last Admin: 06/18/19 10:07 Dose: 200 mls/hr Documented by: Insulin Aspart (Novolog Vial Sliding Scale -) 1 vial SQ TIDAC [facility]; Protocol Last Admin: 06/18/19 06:12 Dose: 2 units Documented by: Insulin Detemir (Levemir Vial) 18 units SQ 0700,2200 [facility] Last Admin: 06/18/19 06:11 Dose: 18 units Documented by: Levothyroxine Sodium (Synthroid -) 50 mcg PO ACBK [facility] Last Admin: 06/18/19 06:10 Dose: 50 mcg Documented by: CBC, BMP 06/16/19 06:30 06/18/19 05:45 Microbiology 06/14/19 07:00 Blood Culture - Preliminary Blood - Peripheral Venous NO GROWTH OBTAINED AFTER 96 HOURS, INCUBATION TO CONTINUE FOR 1 DAYS. 06/14/19 07:00 Blood Culture - Preliminary Blood - Peripheral Venous NO GROWTH OBTAINED AFTER 96 HOURS, INCUBATION TO CONTINUE FOR 1 DAYS. Physical Exam. Awake/ comfortable S1 s2 RRR Lungs decreased at bases Abd- soft, NT trace edema alert/ awake PLAN Better ON antibiotics cultures repeated are negative iv fluids-- mild hydration clinically improving change protonix to po start on Eliquis. f/u cbc will follow PT Problem List - Problems (1) Acute respiratory failure Code(s): J96.00 - ACUTE RESPIRATORY FAILURE, UNSP W HYPOXIA OR HYPERCAPNIA (2) Acute respiratory failure requiring reintubation Code(s): J96.00 - ACUTE RESPIRATORY FAILURE, UNSP W HYPOXIA OR HYPERCAPNIA (3) Sepsis Code(s): A41.9 - SEPSIS, UNSPECIFIED ORGANISM (4) Hypernatremia Code(s): E87.0 - HYPEROSMOLALITY AND HYPERNATREMIA (5) UTI (urinary tract infection) Code(s): N39.0 - URINARY TRACT INFECTION, SITE NOT SPECIFIED Qualifiers: Urinary tract infection type: site unspecified Hematuria presence: with hematuria Qualified Code(s): N39.0 - Urinary tract infection, site not specified; R31.9 - Hematuria, unspecified
--- NOTE | 2019-06-18 12:30 | PN ---
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 (short form) - Note 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: 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: No acute events overnight. Being fed by nurses aid spo2 100% on 2 l/m Appears stable VSS/AFEBRILE Gen: NAD at rest Heart: RRR Lung: decreased breath sounds at the bases Abd: soft, nontender Ext: no edema LABS/MEDS/NOTES/CHART REVIEWED ASSESSMENT AND PLAN: Acute Hypoxic Respiratory Failure improved UTI Gram Positive Bacteremia on Ceftriaxone Severe Sepsis resolved Acute on Chronic Renal Failure +Troponins were likely Demand Ischemia Hypernatremia/Dehydration improved HTN DM Hypothyroidism Anemia Dementia Functional Quadriplegia - ABX Per ID - monitor urine output, creatinine - Supplemental O2 to maintain SpO2 >90% - aspiration precautions - DVT/GI prophylaxis Loretta PABON MD
[2019-06-18] MEDS ORDERED: SODIUM CHLORIDE 0.45% 1,000 ML IV SCH (14:50)
--- NOTE | 2019-06-18 14:50 | PN ---
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, Physician History of Present Illness: Pt seen and examined at bedside. SHe is awake and alert. She is tolerating diet. - Current Medication List Current Medications: Active Medications Apixaban (Eliquis -) 5 mg PO BID [facility] Atenolol (Tenormin -) 25 mg PO DAILY [facility] Last Admin: 06/18/19 10:07 Dose: 25 mg Documented by: Sodium Chloride (1/2 Normal Saline) 1,000 mls @ 80 mls/hr IV ASDIR [facility] Last Admin: 06/17/19 13:47 Dose: 80 mls/hr Documented by: Ceftriaxone Sodium 2 gm/ (Dextrose) 100 mls @ 200 mls/hr IVPB DAILY [facility]; Protocol Last Admin: 06/18/19 10:07 Dose: 200 mls/hr Documented by: Insulin Aspart (Novolog Vial Sliding Scale -) 1 vial SQ TIDAC [facility]; Protocol Last Admin: 06/18/19 11:03 Dose: 2 units Documented by: Insulin Detemir (Levemir Vial) 18 units SQ 0700,2200 [facility] Last Admin: 06/18/19 06:11 Dose: 18 units Documented by: Levothyroxine Sodium (Synthroid -) 50 mcg PO ACBK [facility] Last Admin: 06/18/19 06:10 Dose: 50 mcg Documented by: - Objective Vital Signs: Vital Signs Temperature 98.7 F 06/18/19 14:32 Pulse Rate 72 06/18/19 14:32 Respiratory Rate 20 06/18/19 14:32 Blood Pressure 143/70 06/18/19 14:32 O2 Sat by Pulse Oximetry (%) 100 06/18/19 09:00 Constitutional: Yes: Calm Eyes: Yes: Conjunctiva Clear HENT: Yes: Atraumatic Neck: Yes: Supple Cardiovascular: Yes: S1, S2 Respiratory: Yes: CTA Bilaterally Gastrointestinal: Yes: Soft Genitourinary: Yes: Incontinence Edema: Yes Edema: LLE: Trace, RLE: Trace Neurological: Yes: Oriented Labs: CBC, BMP 06/16/19 06:30 06/18/19 05:45 INR, PTT INR 1.44 (0.83-1.09) H 06/14/19 07:00 Assessment/Plan Current Medications Generic Name Dose Route Start Last Admin Trade Name Freq PRN Reason Stop Dose Admin Apixaban 5 mg 06/18/19 22:00 Eliquis - PO BID [facility] Atenolol 25 mg 06/17/19 10:00 06/18/19 10:07 Tenormin - PO 25 mg DAILY [facility] Administration Sodium Chloride 1,000 mls @ 80 mls/hr 06/17/19 13:42 06/17/19 13:47 1/2 Normal Saline IV 80 mls/hr ASDIR [facility] Administration Ceftriaxone Sodium 2 gm/ 100 mls @ 200 mls/hr 06/18/19 10:00 06/18/19 10:07 Dextrose IVPB 200 mls/hr DAILY [facility] Administration Protocol Insulin Aspart 1 vial 06/16/19 07:00 06/18/19 11:03 Novolog Vial Sliding Scale - SQ 2 units TIDAC [facility] Administration Protocol Insulin Detemir 18 units 06/17/19 22:00 06/18/19 06:11 Levemir Vial SQ 18 units 0700,2200 [facility] Administration Levothyroxine Sodium 50 mcg 06/17/19 07:00 06/18/19 06:10 Synthroid - PO 50 mcg ACBK [facility] Administration Impression 1. hypernatremia 2. sepsis 3. ODESSA resolving 4. resp failure 5. htn 6. dm Plan - renal function is improving - can d/c fluids in am - pt tolerating diet - sodium improving - monitor lytes - will follow PRN
--- NOTE | 2019-06-18 15:01 | PN ---
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, Physician History of Present Illness: AWAKE, ALERT IN BED OFFERS NO COMPLAINTS TEMPS DOWN AFEBRILE WBC IMPROVED BC SCN MIXED URINE C/S MIXED SPUTUM C/S MRSA, YEAST AZOTEMIA IMPROVED - Current Medication List Current Medications: Active Medications Apixaban (Eliquis -) 5 mg PO BID [facility] Atenolol (Tenormin -) 25 mg PO DAILY [facility] Last Admin: 06/18/19 10:07 Dose: 25 mg Documented by: Ceftriaxone Sodium 2 gm/ (Dextrose) 100 mls @ 200 mls/hr IVPB DAILY [facility]; Protocol Last Admin: 06/18/19 10:07 Dose: 200 mls/hr Documented by: Sodium Chloride (1/2 Normal Saline) 1,000 mls @ 50 mls/hr IV ASDIR [facility] Stop: 06/19/19 00:01 Insulin Aspart (Novolog Vial Sliding Scale -) 1 vial SQ TIDAC [facility]; Protocol Last Admin: 06/18/19 11:03 Dose: 2 units Documented by: Insulin Detemir (Levemir Vial) 18 units SQ 0700,2200 [facility] Last Admin: 06/18/19 06:11 Dose: 18 units Documented by: Levothyroxine Sodium (Synthroid -) 50 mcg PO ACBK [facility] Last Admin: 06/18/19 06:10 Dose: 50 mcg Documented by: - Objective Vital Signs: Vital Signs Temperature 98.7 F 06/18/19 14:32 Pulse Rate 72 06/18/19 14:32 Respiratory Rate 20 06/18/19 14:32 Blood Pressure 143/70 06/18/19 14:32 O2 Sat by Pulse Oximetry (%) 100 06/18/19 09:00 Constitutional: Yes: No Distress Eyes: Yes: Conjunctiva Clear Cardiovascular: Yes: Regular Rate and Rhythm, S1, S2 Respiratory: Yes: Diminished Gastrointestinal: Yes: Normal Bowel Sounds, Soft, Abdomen, Obese, Other (DISTENDED). No: Tenderness Labs: CBC, BMP 06/16/19 06:30 06/18/19 05:45 INR, PTT INR 1.44 (0.83-1.09) H 06/14/19 07:00 Assessment/Plan RESPIRATORY FAILURE S/P EXTUBATION SEPSIS R/O SEPTIC SHOCK IMPROVED UTI/ R/O SEPSIS SECONDARY TO UTI +BC R/O STAPH BACTEREMIA/ SEPSIS TOXIC METABOLIC ENCEPHALOPATHY/ OBS LACTIC ACIDOSIS AZOTEMIA IMPROVED DAY#7 ANTIBIOTICS D/C ANTIBIOTICS, OBSERVE OFF
[2019-06-18] MEDS: APIXABAN 5 MG TABLET PO SCH (21:09)
[2019-06-19] MEDS: INSULIN SLIDING SCALE (NOVOLOG) 1 VIAL SQ SCH ×3 (06:22→16:16)
[2019-06-19] MEDS: LEVOTHYROXINE NA 50 MCG TABLET (FP) PO SCH (06:22)
[2019-06-19] MEDS: INSULIN (LEVEMIR) 100 UNITS/ML UNITS SQ SCH ×2 (06:22→22:00)
[2019-06-19 06:57] LABS: BASO % 0.6 % (0-2.0); EOS % 1.9 % (0-4.5); HEMATOCRIT 28.9 % (32.4-45.2); HEMOGLOBIN 9.5 GM/dL (10.7-15.3); LYMPH % 18.4 % (8-40); MCH 31.2 pg (25.7-33.7); MCHC 32.8 g/dl (32.0-36.0); MEAN CELL VOLUME 95.1 fl (80-96); MEAN PLT VOLUME 9.2 fl (7.5-11.1); MONO % 7.7 % (3.8-10.2); NEUT % 71.4 % (42.8-82.8); PLATELET COUNT 345 K/MM3 (134-434); RBC 3.04 M/mm3 (3.60-5.2); RDW 14.3 % (11.6-15.6); WHITE BLOOD COUNT 11.1 K/mm3 (4.0-10.0)
--- NOTE | 2019-06-19 08:25 | PN ---
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, Physician Chief Complaint: remains afebrile, stable BP Denies CP, SOB WBC coming down History of Present Illness: Sepsis Bacteremia Resp failure, extubated. - Current Medication List Current Medications: Active Medications Apixaban (Eliquis -) 5 mg PO BID [facility] Last Admin: 06/18/19 21:09 Dose: 5 mg Documented by: Atenolol (Tenormin -) 25 mg PO DAILY [facility] Last Admin: 06/18/19 10:07 Dose: 25 mg Documented by: Ceftriaxone Sodium 2 gm/ (Dextrose) 100 mls @ 200 mls/hr IVPB DAILY [facility]; Protocol Last Admin: 06/18/19 10:07 Dose: 200 mls/hr Documented by: Insulin Aspart (Novolog Vial Sliding Scale -) 1 vial SQ TIDAC [facility]; Protocol Last Admin: 06/19/19 06:22 Dose: 2 units Documented by: Insulin Detemir (Levemir Vial) 18 units SQ 0700,2200 [facility] Last Admin: 06/19/19 06:22 Dose: 18 units Documented by: Levothyroxine Sodium (Synthroid -) 50 mcg PO ACBK [facility] Last Admin: 06/19/19 06:22 Dose: 50 mcg Documented by: - Objective Vital Signs: Vital Signs Temperature 98.3 F 06/19/19 05:24 Pulse Rate 72 06/19/19 05:24 Respiratory Rate 20 06/19/19 05:24 Blood Pressure 124/51 L 06/19/19 05:24 O2 Sat by Pulse Oximetry (%) 99 06/18/19 21:00 Constitutional: Yes: No Distress Eyes: Yes: Conjunctiva Clear Cardiovascular: Yes: Murmur (There is a 2/6 Systolic Murmur at apex audible.) Respiratory: Yes: CTA Bilaterally Gastrointestinal: Yes: Soft (NT) Edema: No (venodynes in place. ) Neurological: Yes: Alert ...Motor Strength: WNL Labs: CBC, BMP 06/19/19 06:00 06/18/19 05:45 INR, PTT INR 1.44 (0.83-1.09) H 06/14/19 07:00 Microbiology 06/14/19 07:00 Blood - Peripheral Venous Blood Culture - Final NO GROWTH AFTER 5 DAYS INCUBATION 06/14/19 07:00 Blood - Peripheral Venous Blood Culture - Final NO GROWTH AFTER 5 DAYS INCUBATION Assessment/Plan Assessment/Plan cxr: clear lungs ecg: sr, nl intervals, nonspec st-t changes, no sig change priors echo 02/2018: nl lvef, mild-mod mr echo 05/2019 tds due to positioning, grade II diastolic dysfunction, elevated LA pressure, tr TR, no , sm pericardial effusion <1 cm, nl LV function, RV not well visualized likely nl function a/p: 73 f hx htn, dm, pafib, cad/nstemi 2018, sent from [place] for ams, resp distress. sepsis, resp failure, bacteremia: surveillance cultures cleared, WBC down. -cont abx per ID - COVID-19 ruled out -bp stable w/o pressors -now extubated -There is a systolic murmur audible. The initial echo was technically difficult to positioning difficulty. There is nothing in the original study report to explain the murmur. Will repeat the study now that she is out of ICU/isolation and can hopefully be positioned more optimally htn: -cont bb pafib: -in sr here -cont bb -held home eliquis due to anemia. Stool guaiac negative x1 -was transfused, Hb improved -Eliquis now resumed, follow H/H jeffery: -likely due to sepsis, cr improving with ivfs, abx cad, nstemi 2018: -Trops are borderline elevated with flat trend and nl ckmb, ecg w/o ischemic changes, no suggestion of ACS. Likely trop related to jeffery, sepsis. -cont bb - echo nl LV function RLE edema: - no DVT on lower ext dopplers
[2019-06-19] MEDS ORDERED: DEXTROSE 5%-WATER 100 ML IVPB ONE (08:36)
[2019-06-19] MEDS: ATENOLOL 25 MG TABLET (FP) PO SCH (09:02)
[2019-06-19] MEDS: CEFTRIAXONE 2 GM in DEXTROSE 5%-WATER 100 ML IVPB SCH (09:02)
[2019-06-19] MEDS: APIXABAN 5 MG TABLET PO SCH ×2 (09:02→22:00)
--- NOTE | 2019-06-19 09:28 | PN ---
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 (short form) - Note 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: PULMONARY No acute events overnight. spo2 100% on 2 l/m Appears stable/Denies complaints VSS/AFEBRILE Gen: NAD at rest Heart: RRR Lung: decreased breath sounds at the bases Abd: soft, nontender Ext: no edema LABS/MEDS/NOTES/CHART REVIEWED ASSESSMENT AND PLAN: Acute Hypoxic Respiratory Failure improved UTI Gram Positive Bacteremia on Ceftriaxone Severe Sepsis resolved Acute on Chronic Renal Failure +Troponins were likely Demand Ischemia Hypernatremia/Dehydration improved HTN DM Hypothyroidism Anemia Dementia Functional Quadriplegia - ABX Per ID - monitor urine output, creatinine - Supplemental O2 to maintain SpO2 >90% - aspiration precautions - DVT/GI prophylaxis Loretta PABON MD
[2019-06-19] MEDS: SODIUM CHLORIDE 0.45% 1,000 ML IV SCH (10:04)
--- NOTE | 2019-06-19 12:07 | PN ---
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 (short form) - Note 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: Pt seen/ examined on floor chart is reviewed awake/ comfortable feels well denies pain alert/ awake off abx Vital Signs Temp 98.2 F 06/19/19 09:00 Pulse 68 06/19/19 09:00 Resp 20 06/19/19 09:00 BP 119/53 L 06/19/19 09:00 Pulse Ox 99 06/18/19 21:00 Intake & Output 06/18/19 06/19/19 06/19/19 23:59 11:59 23:59 Intake Total 860 600 Output Total 600 500 Balance 260 100 Intake: IV 610 600 1/2 Normal Saline 1,000 50 600 ml @ 50 mls/hr IV ASDIR [facility] Rx#:[id number] 1/2 Normal Saline 1,000 560 ml @ 80 mls/hr IV ASDIR [facility] Rx#:[id number] IVPB 50 Oral 200 Output: Urine 600 500 Collado 600 500 Other: Voiding Method Indwelling Catheter Indwelling Catheter Bowel Movement Yes # Bowel Movements 1 Body Mass Index (BMI) 23.7 Active Medications Apixaban (Eliquis -) 5 mg PO BID [facility] Atenolol (Tenormin -) 25 mg PO DAILY [facility] Last Admin: 06/18/19 10:07 Dose: 25 mg Documented by: Sodium Chloride (1/2 Normal Saline) 1,000 mls @ 80 mls/hr IV ASDIR [facility] Last Admin: 06/17/19 13:47 Dose: 80 mls/hr Documented by: Ceftriaxone Sodium 2 gm/ (Dextrose) 100 mls @ 200 mls/hr IVPB DAILY [facility]; Protocol Last Admin: 06/18/19 10:07 Dose: 200 mls/hr Documented by: Insulin Aspart (Novolog Vial Sliding Scale -) 1 vial SQ TIDAC [facility]; Protocol Last Admin: 06/18/19 06:12 Dose: 2 units Documented by: Insulin Detemir (Levemir Vial) 18 units SQ 0700,2200 [facility] Last Admin: 06/18/19 06:11 Dose: 18 units Documented by: Levothyroxine Sodium (Synthroid -) 50 mcg PO ACBK [facility] Last Admin: 06/18/19 06:10 Dose: 50 mcg Documented by: CBC, BMP 06/19/19 06:00 06/18/19 05:45 Microbiology 06/14/19 07:00 Blood Culture - Preliminary Blood - Peripheral Venous NO GROWTH OBTAINED AFTER 96 HOURS, INCUBATION TO CONTINUE FOR 1 DAYS. 06/14/19 07:00 Blood Culture - Preliminary Blood - Peripheral Venous NO GROWTH OBTAINED AFTER 96 HOURS, INCUBATION TO CONTINUE FOR 1 DAYS. Physical Exam. Awake/ comfortable S1 s2 RRR Lungs decreased at bases Abd- soft, NT trace edema alert/ awake PLAN Better off antibiotics cultures repeated are negative d/c fluids clinically improving change protonix to po started on Eliquis. h/h stable Cardiology f/u noted-- Being transferred to will follow PT Problem List - Problems (1) Acute respiratory failure Code(s): J96.00 - ACUTE RESPIRATORY FAILURE, UNSP W HYPOXIA OR HYPERCAPNIA (2) Acute respiratory failure requiring reintubation Code(s): J96.00 - ACUTE RESPIRATORY FAILURE, UNSP W HYPOXIA OR HYPERCAPNIA (3) Sepsis Code(s): A41.9 - SEPSIS, UNSPECIFIED ORGANISM (4) Hypernatremia Code(s): E87.0 - HYPEROSMOLALITY AND HYPERNATREMIA (5) UTI (urinary tract infection) Code(s): N39.0 - URINARY TRACT INFECTION, SITE NOT SPECIFIED Qualifiers: Urinary tract infection type: site unspecified Hematuria presence: with hematuria Qualified Code(s): N39.0 - Urinary tract infection, site not specified; R31.9 - Hematuria, unspecified
[2019-06-19] MEDS: ACETAMINOPHEN 325 MG TABLET (FP) PO PRN (22:09)
[2019-06-20] MEDS: LEVOTHYROXINE NA 50 MCG TABLET (FP) PO SCH (06:08)
[2019-06-20] MEDS: INSULIN SLIDING SCALE (NOVOLOG) 1 VIAL SQ SCH ×3 (06:08→17:23)
[2019-06-20] MEDS: INSULIN (LEVEMIR) 100 UNITS/ML UNITS SQ SCH ×2 (06:08→23:58)
[2019-06-20] MEDS: ACETAMINOPHEN 325 MG TABLET (FP) PO PRN ×2 (06:08→18:24)
[2019-06-20 07:13] LABS: BLOOD UREA NITROGEN 23.9 mg/dL (7-18); CALCIUM 8.8 mg/dL (8.5-10.1); CREATININE 1.2 mg/dL (0.55-1.3); MAGNESIUM 1.9 mg/dL (1.8-2.4); POTASSIUM 4.6 mmol/L (3.5-5.1)
--- NOTE | 2019-06-20 08:28 | PN ---
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, Physician Chief Complaint: denies CP, SOB TELE: NSR, T nonspecific T wave changes History of Present Illness: sepsis, bacteremia Resp failure s/p intubation New ECG changes MURMUR - Current Medication List Current Medications: Active Medications Acetaminophen (Tylenol -) 650 mg PO Q6H PRN PRN Reason: PAIN LEVEL 4 - 6 Last Admin: 06/20/19 06:08 Dose: 650 mg Documented by: Apixaban (Eliquis -) 5 mg PO BID [facility] Last Admin: 06/19/19 22:00 Dose: 5 mg Documented by: Atenolol (Tenormin -) 25 mg PO DAILY [facility] Last Admin: 06/19/19 09:02 Dose: 25 mg Documented by: Ceftriaxone Sodium 2 gm/ (Dextrose) 100 mls @ 200 mls/hr IVPB DAILY [facility]; Protocol Last Admin: 06/19/19 09:02 Dose: 200 mls/hr Documented by: Insulin Aspart (Novolog Vial Sliding Scale -) 1 vial SQ TIDAC [facility]; Protocol Last Admin: 06/20/19 06:08 Dose: 4 units Documented by: Insulin Detemir (Levemir Vial) 18 units SQ 0700,2200 [facility] Last Admin: 06/20/19 06:08 Dose: 18 units Documented by: Levothyroxine Sodium (Synthroid -) 50 mcg PO ACBK [facility] Last Admin: 06/20/19 06:08 Dose: 50 mcg Documented by: - Objective Vital Signs: Vital Signs Temperature 98.7 F 06/20/19 05:01 Pulse Rate 69 06/20/19 05:01 Respiratory Rate 20 06/20/19 05:01 Blood Pressure 153/61 06/20/19 05:01 O2 Sat by Pulse Oximetry (%) 96 06/19/19 21:00 Constitutional: Yes: No Distress, Calm Eyes: Yes: Conjunctiva Clear Neck: Yes: Supple, Trachea Midline Cardiovascular: Yes: Regular Rate and Rhythm, Murmur Respiratory: Yes: CTA Bilaterally Gastrointestinal: Yes: Soft Edema: No Neurological: Yes: Alert Labs: CBC, BMP 06/19/19 06:00 06/20/19 05:40 INR, PTT INR 1.44 (0.83-1.09) H 06/14/19 07:00 Laboratory Tests 03/13/20 03/14/20 03/14/20 20:57 00:15 06:04 Sodium Potassium Creatinine Magnesium Creatine Kinase Troponin I 0.46 H 0.44 H 0.49 H 06/19/19 06/19/19 06/20/19 12:11 17:10 00:05 Sodium Potassium Creatinine Magnesium Creatine Kinase 68 70 Troponin I 0.31 H 0.32 H 0.33 H 06/20/19 05:40 Sodium 140 Potassium 4.6 Creatinine 1.2 Magnesium 1.9 Creatine Kinase Troponin I - ....Imaging EKG: Image Reviewed Assessment/Plan Assessment/Plan echo 05/2019 tds due to positioning, grade II diastolic dysfunction, elevated LA pressure, tr TR, no , sm pericardial effusion <1 cm, nl LV function, RV not well visualized likely nl function a/p: 73 f hx htn, dm, pafib, cad/nstemi 2018, sent from [place] for ams, resp distress, sepsis, bacteremia found to have murmur on exam and new ECG changes 06/18. sepsis, resp failure, bacteremia: surveillance cultures cleared, WBC down. -cont abx per ID - COVID-19 ruled out -bp stable w/o pressors -now extubated -There is a systolic murmur audible on 06/18, it is unclear if this is old or new. The initial echo was technically difficult due to positioning difficulty. There is nothing in the original study report to explain the murmur. Will repeat the study now that she is out of ICU/isolation and can hopefully be positioned more optimally ECG changes: -new deep T wave inversions with prolonged QTc on 06/18, moved to [facility]. No sig arrhythmias overnight -TnI trend flat and stable from admission, she is asx, lytes ok -unclear etiology. Repeating echo as above. -consider Head CT (?cerebral T waves) -Avoid QT prolonging meds -Keep K+ and Mg2+ normalized -To consider pharm MPI prior to discharge -Repeat ECG AM htn: -cont bb pafib: -in sr here -cont bb -held home eliquis due to anemia. Stool guaiac negative x1 -was transfused, Hb improved -Eliquis now resumed, follow H/H jeffery: -likely due to sepsis, cr improving with ivfs, abx cad, nstemi 2018: -Trops are borderline elevated with flat trend and nl ckmb, ecg w/o ischemic changes, no suggestion of ACS. Likely trop related to jeffery, sepsis. -cont bb - echo nl LV function to be repeated in AM given ECG changes. RLE edema: - no DVT on lower ext dopplers
[2019-06-20] MEDS ORDERED: DEXTROSE 5%-WATER 100 ML IVPB ONE (09:14)
[2019-06-20] MEDS: CEFTRIAXONE 2 GM in DEXTROSE 5%-WATER 100 ML IVPB SCH (10:10)
[2019-06-20] MEDS: APIXABAN 5 MG TABLET PO SCH ×2 (10:18→23:58)
[2019-06-20] MEDS: ATENOLOL 25 MG TABLET (FP) PO SCH (10:18)
--- NOTE | 2019-06-20 11:00 | PN ---
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, Physician History of Present Illness: PULMONARY AWAKE,COMFORTABLE,-RESP DISTRESS - Current Medication List Current Medications: Active Medications Acetaminophen (Tylenol -) 650 mg PO Q6H PRN PRN Reason: PAIN LEVEL 4 - 6 Last Admin: 06/20/19 06:08 Dose: 650 mg Documented by: Apixaban (Eliquis -) 5 mg PO BID [facility] Last Admin: 06/20/19 10:18 Dose: 5 mg Documented by: Atenolol (Tenormin -) 25 mg PO DAILY [facility] Last Admin: 06/20/19 10:18 Dose: 25 mg Documented by: Ceftriaxone Sodium 2 gm/ (Dextrose) 100 mls @ 200 mls/hr IVPB DAILY [facility]; Protocol Last Admin: 06/20/19 10:10 Dose: 200 mls/hr Documented by: Insulin Aspart (Novolog Vial Sliding Scale -) 1 vial SQ TIDAC [facility]; Protocol Last Admin: 06/20/19 06:08 Dose: 4 units Documented by: Insulin Detemir (Levemir Vial) 18 units SQ 0700,2200 [facility] Last Admin: 06/20/19 06:08 Dose: 18 units Documented by: Levothyroxine Sodium (Synthroid -) 50 mcg PO ACBK [facility] Last Admin: 06/20/19 06:08 Dose: 50 mcg Documented by: - Objective Vital Signs: Vital Signs Temperature 98.0 F 06/20/19 10:00 Pulse Rate 61 06/20/19 10:00 Respiratory Rate 18 06/20/19 10:00 Blood Pressure 155/70 06/20/19 10:00 O2 Sat by Pulse Oximetry (%) 96 06/20/19 09:00 Constitutional: Yes: Well Nourished, Calm Eyes: Yes: WNL HENT: Yes: WNL Neck: Yes: WNL Cardiovascular: Yes: Pulse Irregular, S1, S2 Respiratory: Yes: Diminished (POOR INSPIRATORY EFFORT) Gastrointestinal: Yes: Normal Bowel Sounds, Soft Extremities: Yes: WNL Edema: No Labs: CBC, BMP 06/20/19 05:40 INR, PTT INR 1.44 (0.83-1.09) H 06/14/19 07:00 Problem List - Problems (1) Acute respiratory failure Code(s): J96.00 - ACUTE RESPIRATORY FAILURE, UNSP W HYPOXIA OR HYPERCAPNIA (2) Sepsis Code(s): A41.9 - SEPSIS, UNSPECIFIED ORGANISM (3) Acute kidney injury Code(s): N17.9 - ACUTE KIDNEY FAILURE, UNSPECIFIED (4) Afib Code(s): I48.91 - UNSPECIFIED ATRIAL FIBRILLATION Qualifiers: Atrial fibrillation type: chronic (5) Dementia Code(s): F03.90 - UNSPECIFIED DEMENTIA WITHOUT BEHAVIORAL DISTURBANCE (6) Diabetes Code(s): E11.9 - TYPE 2 DIABETES MELLITUS WITHOUT COMPLICATIONS (7) Hyperlipidemia Code(s): E78.5 - HYPERLIPIDEMIA, UNSPECIFIED Assessment/Plan SSESSMENT AND PLAN: Acute Hypoxic Respiratory Failure improved UTI Gram Positive Bacteremia on Ceftriaxone Severe Sepsis resolved Acute on Chronic Renal Failure improving +Troponins were likely Demand Ischemia Hypernatremia/Dehydration improved HTN DM Hypothyroidism Anemia Dementia Functional Quadriplegia - ABX Per ID - monitor urine output, creatinine - Supplemental O2 to maintain SpO2 >90% - aspiration precautions - DVT/GI prophylaxis DR RIVERA
--- NOTE | 2019-06-20 12:43 | PN ---
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 (short form) - Note 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: Pt seen/ examined on floor chart is reviewed awake/ comfortable feels well denies pain alert/ awake Vital Signs Temp 98.0 F 06/20/19 10:00 Pulse 61 06/20/19 10:00 Resp 18 06/20/19 10:00 BP 155/70 06/20/19 10:00 Pulse Ox 96 06/20/19 09:00 Intake & Output 06/19/19 06/20/19 06/20/19 23:59 11:59 23:59 Intake Total 710 600 Output Total 800 700 Balance -90 -100 Intake: IV 10 1/2 Normal Saline 1,000 0 ml @ 50 mls/hr IV ASDIR [facility] Rx#:[id number] sl 10 IVPB 200 Oral 500 600 Output: Urine 800 700 [place] 800 700 Other: Voiding Method Indwelling Catheter Indwelling Catheter Bowel Movement No Yes # Bowel Movements 1 1 Weight Measurement Method Patient Lift Scale Active Medications Apixaban (Eliquis -) 5 mg PO BID [facility] Atenolol (Tenormin -) 25 mg PO DAILY [facility] Last Admin: 06/18/19 10:07 Dose: 25 mg Documented by: Sodium Chloride (1/2 Normal Saline) 1,000 mls @ 80 mls/hr IV ASDIR [facility] Last Admin: 06/17/19 13:47 Dose: 80 mls/hr Documented by: Ceftriaxone Sodium 2 gm/ (Dextrose) 100 mls @ 200 mls/hr IVPB DAILY [facility]; Protocol Last Admin: 06/18/19 10:07 Dose: 200 mls/hr Documented by: Insulin Aspart (Novolog Vial Sliding Scale -) 1 vial SQ TIDAC [facility]; Protocol Last Admin: 06/18/19 06:12 Dose: 2 units Documented by: Insulin Detemir (Levemir Vial) 18 units SQ 0700,2200 [facility] Last Admin: 06/18/19 06:11 Dose: 18 units Documented by: Levothyroxine Sodium (Synthroid -) 50 mcg PO ACBK [facility] Last Admin: 06/18/19 06:10 Dose: 50 mcg Documented by: CBC, BMP 06/19/19 06:00 06/18/19 05:45 Microbiology 06/14/19 07:00 Blood Culture - Preliminary Blood - Peripheral Venous NO GROWTH OBTAINED AFTER 96 HOURS, INCUBATION TO CONTINUE FOR 1 DAYS. 06/14/19 07:00 Blood Culture - Preliminary Blood - Peripheral Venous NO GROWTH OBTAINED AFTER 96 HOURS, INCUBATION TO CONTINUE FOR 1 DAYS. Physical Exam. Awake/ comfortable S1 s2 RRR Lungs decreased at bases Abd- soft, NT trace edema alert/ awake PLAN Better off antibiotics cultures repeated are negative clinically improving changed protonix to po started on Eliquis. h/h stable f/u labs No arrythmia noted on tele Monitor Repeat echo Will follow Problem List - Problems (1) Acute respiratory failure Code(s): J96.00 - ACUTE RESPIRATORY FAILURE, UNSP W HYPOXIA OR HYPERCAPNIA (2) Acute respiratory failure requiring reintubation Code(s): J96.00 - ACUTE RESPIRATORY FAILURE, UNSP W HYPOXIA OR HYPERCAPNIA (3) Sepsis Code(s): A41.9 - SEPSIS, UNSPECIFIED ORGANISM (4) Hypernatremia Code(s): E87.0 - HYPEROSMOLALITY AND HYPERNATREMIA (5) UTI (urinary tract infection) Code(s): N39.0 - URINARY TRACT INFECTION, SITE NOT SPECIFIED Qualifiers: Urinary tract infection type: site unspecified Hematuria presence: with hematuria Qualified Code(s): N39.0 - Urinary tract infection, site not specified; R31.9 - Hematuria, unspecified
[2019-06-21] MEDS: INSULIN SLIDING SCALE (NOVOLOG) 1 VIAL SQ SCH ×2 (07:16→14:14)
[2019-06-21] MEDS: INSULIN (LEVEMIR) 100 UNITS/ML UNITS SQ SCH (07:17)
[2019-06-21] MEDS: LEVOTHYROXINE NA 50 MCG TABLET (FP) PO SCH (07:18)
[2019-06-21 07:38] LABS: BASO % 0.9 % (0-2.0); EOS % 1.8 % (0-4.5); HEMATOCRIT 28.9 % (32.4-45.2); HEMOGLOBIN 9.9 GM/dL (10.7-15.3); LYMPH % 22.1 % (8-40); MCH 32.5 pg (25.7-33.7); MCHC 34.4 g/dl (32.0-36.0); MEAN CELL VOLUME 94.5 fl (80-96); MEAN PLT VOLUME 9.3 fl (7.5-11.1); MONO % 6.8 % (3.8-10.2); NEUT % 68.4 % (42.8-82.8); PLATELET COUNT 362 K/MM3 (134-434); RBC 3.05 M/mm3 (3.60-5.2); RDW 14.3 % (11.6-15.6)
[2019-06-21 08:05] LABS: ALBUMIN 1.9 g/dl (3.4-5.0); BILIRUBIN,TOTAL 0.1 mg/dL (0.2-1); BLOOD UREA NITROGEN 19.4 mg/dL (7-18); CALCIUM 8.6 mg/dL (8.5-10.1); CREATININE 0.9 mg/dL (0.55-1.3); MAGNESIUM 1.8 mg/dL (1.8-2.4); POTASSIUM 4.8 mmol/L (3.5-5.1); TOT PROT 6.2 g/dl (6.4-8.2)
--- NOTE | 2019-06-21 09:19 | EKG ---
Test Reason : Blood Pressure : / mmHG Vent. Rate : 062 BPM Atrial Rate : 062 BPM P-R Int : 128 ms QRS Dur : 088 ms QT Int : 530 ms P-R-T Axes : -46 011 178 degrees QTc Int : 537 ms UNUSUAL P AXIS, POSSIBLE ECTOPIC ATRIAL RHYTHM ST T Changes, consider ischemia PROLONGED QT ABNORMAL ECG WHEN COMPARED WITH ECG OF 11-JUN-2019 21:10, SIGNIFICANT CHANGES HAVE OCCURRED Confirmed by Nabeel Clemente ([id number]) on 06/21/2019 9:18:50 AM Referred By: Flo MESA Confirmed By:Nabeel Clemente
[2019-06-21] MEDS ORDERED: PT OWN MED DRAWER 7, Y5N ONE (10:00)
--- NOTE | 2019-06-21 10:00 | PN ---
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, RN ICU - Note 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: Selected Entries 06/17/19 06/17/19 06/18/19 09:21 14:58 01:32 Breakfast 100% Diet Tolerated Well Well Lunch 75% Temperature 98.4 F 06/18/19 06/18/19 06:05 09:40 Breakfast 75% Diet Tolerated Well Lunch Temperature 98.5 F Selected Entries 06/19/19 06/19/19 06/19/19 05:24 09:00 10:03 Breakfast 100% Diet Tolerated Well Lunch Supper Temperature 98.3 F 98.2 F 06/19/19 06/19/19 06/19/19 14:01 18:29 20:30 Breakfast Diet Tolerated Well Lunch 75% Supper Temperature 98.3 F 98.3 F 98.4 F 06/19/19 06/20/19 06/20/19 21:04 02:09 05:01 Breakfast Diet Tolerated Lunch Supper Temperature 98.8 F 98.2 F 98.7 F 06/20/19 06/20/19 06/20/19 10:00 10:58 14:05 Breakfast 25% Diet Tolerated Fair Lunch 25% Supper Temperature 98.0 F 97.3 F L 06/20/19 18:00 Breakfast Diet Tolerated Well Lunch Supper 75% Temperature 97.4 F L Laboratory Tests 06/19/19 06/21/19 06:00 06:13 WBC 11.1 H 10.0 On puree, thin liquids, magic cup, ensure, ensure pudding
[2019-06-21] MEDS: ATENOLOL 25 MG TABLET (FP) PO SCH (10:12)
[2019-06-21] MEDS: APIXABAN 5 MG TABLET PO SCH (10:12)
--- NOTE | 2019-06-21 10:53 | ECHO ---
Name: REYNALDO SMART Exam:Adult Echocardiogram Study Date: 06/21/2019 09:28 AM Age: 73 yrs Reason For Study: Mateus Height: 63 in Weight: 134 lb BSA: 1.6 m2 MMode/2D Measurements & Calculations IVSd: 0.95 cm Ao root diam: 3.2 cm LVIDd: 4.7 cm LA dimension: 3.8 cm LVIDs: 3.1 cm ACS: 1.7 cm LVPWd: 0.99 cm EDV(Teich): 104.2 ml LVOT diam: 2.0 cm ESV(Teich): 38.2 ml LAV (MOD-bp): 69.0 ml TAPSE: 2.3 cm RV S Dwaine: 14.8 cm/sec Doppler Measurements & Calculations MV E max dwaine: 85.5 cm/sec Ao V2 max: 160.2 cm/sec MV A max dwaine: 121.7 cm/sec Ao max P.3 mmHg MV E/A: 0.70 Ao V2 mean: 114.6 cm/sec MV dec time: 0.38 sec Ao mean P.0 mmHg Ao V2 VTI: 36.7 cm OUMAR(I,D): 2.9 cm2 OUMAR(V,D): 2.6 cm2 LV V1 max P.8 mmHg SV(LVOT): 105.2 ml LV V1 mean P.3 mmHg LV V1 max: 130.5 cm/sec LV V1 mean: 84.3 cm/sec LV V1 VTI: 32.6 cm TR max dwaine: 160.2 cm/sec PA V2 max: 126.2 cm/sec TR max P.3 mmHg PA max P.4 mmHg PA acc slope: 614.1 cm/sec2 PA acc time: 0.15 sec Med Peak E' Dwaine: 3.0 cm/sec PA pr(Accel): 12.5 mmHg Med E/e': 28.3 Lat Peak E' Dwaine: 3.7 cm/sec Lat E/e': 23.1 Pulm Sys Dwaine: 68.0 cm/sec Pulm Hall Dwaine: 29.6 cm/sec Pulm S/D: 2.3 Procedure Suboptimal PLAX/SAX views due to orientation of patient's heart. Left Ventricle The left ventricle is grossly normal size. The left ventricular ejection fraction is normal. Ejection Fraction = 55-60%. The transmitral spectral Doppler flow pattern is suggestive of impaired LV relaxation. Right Ventricle The right ventricle is normal in size and function. Atria The left atrium is moderately dilated. Right atrial size is normal. Mitral Valve There is mild to moderate mitral valve thickening. There is trace mitral regurgitation. Tricuspid Valve The tricuspid valve is not well visualized, but is grossly normal. There is trace tricuspid regurgita tion. Aortic Valve There is moderate aortic sclerosis.;. No hemodynamically significant valvular aortic stenosis. Pulmonic Valve The pulmonic valve is not well visualized. Great Vessels The aortic root is not well visualized. Pericardium/Pleura There is no pericardial effusion. Interpretation Summary Technically difficult study; LV: Normal size, likely LVH/septal hypertrophy,normal systolic function, EF 55-60%, impaired relaxati on RV: Normal LA; Moderately dilated RA: Normal size Sclerotic aortic valve with no signioficant dysfunction on doppler Trace TR and MR Pericardial fat pad. Nabeel Clemente 06/21/2019 10:52 AM
--- NOTE | 2019-06-21 10:54 | PN ---
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, Physician History of Present Illness: pulmonary alert,comfortable,-resp distress - Current Medication List Current Medications: Active Medications Acetaminophen (Tylenol -) 650 mg PO Q6H PRN PRN Reason: PAIN LEVEL 4 - 6 Last Admin: 06/20/19 18:24 Dose: 650 mg Documented by: Apixaban (Eliquis -) 5 mg PO BID [facility] Last Admin: 06/21/19 10:12 Dose: 5 mg Documented by: Atenolol (Tenormin -) 25 mg PO DAILY [facility] Last Admin: 06/21/19 10:12 Dose: 25 mg Documented by: Insulin Aspart (Novolog Vial Sliding Scale -) 1 vial SQ TIDAC [facility]; Protocol Last Admin: 06/21/19 07:16 Dose: Not Given Documented by: Insulin Detemir (Levemir Vial) 18 units SQ 0700,2200 [facility] Last Admin: 06/21/19 07:17 Dose: Not Given Documented by: Levothyroxine Sodium (Synthroid -) 50 mcg PO ACBK [facility] Last Admin: 06/21/19 07:18 Dose: 50 mcg Documented by: - Objective Vital Signs: Vital Signs Temperature 98.1 F 06/21/19 02:00 Pulse Rate 93 H 06/21/19 07:14 Respiratory Rate 18 06/21/19 07:14 Blood Pressure 129/59 L 06/21/19 07:14 O2 Sat by Pulse Oximetry (%) 100 06/20/19 21:00 Constitutional: Yes: Well Nourished, Calm Eyes: Yes: WNL HENT: Yes: WNL Neck: Yes: WNL Cardiovascular: Yes: Regular Rate and Rhythm, S1, S2 Respiratory: Yes: Diminished Gastrointestinal: Yes: Normal Bowel Sounds, Soft Extremities: Yes: WNL Edema: Yes Labs: CBC, BMP 06/21/19 06:13 06/21/19 06:13 INR, PTT INR 1.44 (0.83-1.09) H 06/14/19 07:00 Problem List - Problems (1) Acute respiratory failure Code(s): J96.00 - ACUTE RESPIRATORY FAILURE, UNSP W HYPOXIA OR HYPERCAPNIA (2) Sepsis Code(s): A41.9 - SEPSIS, UNSPECIFIED ORGANISM (3) Acute kidney injury Code(s): N17.9 - ACUTE KIDNEY FAILURE, UNSPECIFIED (4) Afib Code(s): I48.91 - UNSPECIFIED ATRIAL FIBRILLATION Qualifiers: Atrial fibrillation type: chronic (5) Dementia Code(s): F03.90 - UNSPECIFIED DEMENTIA WITHOUT BEHAVIORAL DISTURBANCE (6) Diabetes Code(s): E11.9 - TYPE 2 DIABETES MELLITUS WITHOUT COMPLICATIONS (7) Hyperlipidemia Code(s): E78.5 - HYPERLIPIDEMIA, UNSPECIFIED Assessment/Plan SSESSMENT AND PLAN: Acute Hypoxic Respiratory Failure improved UTI Gram Positive Bacteremia resolved Severe Sepsis resolved Acute on Chronic Renal Failure improving +Troponins were likely Demand Ischemia Hypernatremia/Dehydration improved HTN DM Hypothyroidism Anemia Dementia Functional Quadriplegia - ABX completed - monitor lytes - Supplemental O2 to maintain SpO2 >90% - aspiration precautions - DVT/GI prophylaxis DR RIVERA
--- NOTE | 2019-06-21 10:57 | EKG ---
Test Reason : Blood Pressure : / mmHG Vent. Rate : 063 BPM Atrial Rate : 063 BPM P-R Int : 138 ms QRS Dur : 088 ms QT Int : 500 ms P-R-T Axes : 058 024 175 degrees QTc Int : 511 ms NORMAL SINUS RHYTHM PROLONGED QT ABNORMAL ECG WHEN COMPARED WITH ECG OF 19-JUN-2019 10:14, SINUS RHYTHM HAS REPLACED ECTOPIC ATRIAL RHYTHM Confirmed by Nabeel Clemente ([id number]) on 06/21/2019 10:57:35 AM Referred By: DUSTIN EVANS Confirmed By:Nabeel Clemente
--- NOTE | 2019-06-21 11:09 | PN ---
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, Physician History of Present Illness: pt denies cp or sob. she remains sleepy. states she is "at home" currently - Current Medication List Current Medications: Active Medications Acetaminophen (Tylenol -) 650 mg PO Q6H PRN PRN Reason: PAIN LEVEL 4 - 6 Last Admin: 06/20/19 18:24 Dose: 650 mg Documented by: Apixaban (Eliquis -) 5 mg PO BID [facility] Last Admin: 06/21/19 10:12 Dose: 5 mg Documented by: Atenolol (Tenormin -) 25 mg PO DAILY [facility] Last Admin: 06/21/19 10:12 Dose: 25 mg Documented by: Insulin Aspart (Novolog Vial Sliding Scale -) 1 vial SQ TIDAC [facility]; Protocol Last Admin: 06/21/19 07:16 Dose: Not Given Documented by: Insulin Detemir (Levemir Vial) 18 units SQ 0700,2200 [facility] Last Admin: 06/21/19 07:17 Dose: Not Given Documented by: Levothyroxine Sodium (Synthroid -) 50 mcg PO ACBK [facility] Last Admin: 06/21/19 07:18 Dose: 50 mcg Documented by: - Objective Vital Signs: Vital Signs Temperature 97.6 F 06/21/19 10:00 Pulse Rate 60 06/21/19 10:00 Respiratory Rate 22 H 06/21/19 10:00 Blood Pressure 139/70 06/21/19 10:00 O2 Sat by Pulse Oximetry (%) 100 06/20/19 21:00 Labs: CBC, BMP 06/21/19 06:13 06/21/19 06:13 INR, PTT INR 1.44 (0.83-1.09) H 06/14/19 07:00 Assessment/Plan echo 05/2019 tds due to positioning, grade II diastolic dysfunction, elevated LA pressure, tr TR, no , sm pericardial effusion <1 cm, nl LV function, RV not we ll visualized likely nl function tele: NSR a/p: 73 f hx htn, dm, pafib, cad/nstemi 2017, sent from [place] for ams, resp distress, sepsis, bacteremia found to have murmur on exam and new ECG changes 06/18. sepsis, resp failure, bacteremia: surveillance cultures cleared, WBC down. -cont abx per ID - COVID-19 ruled out -bp stable w/o pressors -now extubated -systolic murmur audible on 06/18, it is unclear if this is old or new, repeat echo pending (initial TDS study no signif valve pathology) ECG changes: -new deep T wave inversions with prolonged QTc on 06/18, unclear etiology. stable on repeat ecg 06/20 -TnI indeterminate range, trend flat and stable from admission = not c/w ACS -K/Mag ok, replete to 06/30 resp.ly -f/u repeat echo -duobt cerebral T waves given easily rousable at present--likely rules out severely increased ICP--consider CT head if neuro exam changes -Avoid QT prolonging meds (current list reviewed, free of culprits) -To consider pharm MPI prior to discharge if will change mgmt htn: -bp stable -cont bb pafib: -in sr here -cont bb -held home eliquis due to anemia. Stool guaiac negative x1 -was transfused, Hb improved -Eliquis now resumed, follow H/H jeffery: -likely due to sepsis, cr improving with ivfs, abx cad, nstemi 2018: -Trops are borderline elevated with flat trend and nl ckmb, ecg w/o ischemic changes, no suggestion of ACS. Likely trop related to jeffery, sepsis. -cont bb -assessment as above RLE edema: - no DVT on lower ext dopplers
[2019-06-21] MEDS ORDERED: MAGNESIUM SULF 50% (8.12 MEQ/2 ML-1 GM VIAL) IVPB ONE (11:30)
--- NOTE | 2019-06-21 13:40 | DS ---
Physical Examination Vital Signs: Vital Signs Temperature 97.6 F 06/21/19 10:00 Pulse Rate 60 06/21/19 10:00 Respiratory Rate 22 H 06/21/19 10:00 Blood Pressure 139/70 06/21/19 10:00 O2 Sat by Pulse Oximetry (%) 100 06/21/19 09:00 Findings/Remarks: Pt seen/ examined chart reviewed awake/ comfortable No distress. Afebrile off abx Repeat echo- noted -- HCM ? Constitutional: Yes: No Distress, Calm Eyes: Yes: Conjunctiva Clear Neck: Yes: Supple Cardiovascular: Yes: Regular Rate and Rhythm Respiratory: Yes: CTA Bilaterally Gastrointestinal: Yes: Soft Edema: No Neurological: Yes: Alert Psychiatric: Yes: Alert Labs: CBC, BMP 06/21/19 06:13 06/21/19 06:13 Discharge Summary Problems reviewed: Yes Reason For Visit: URINARY TRACT INFECTION,HYPERNATREMIA,SEPSIS Current Active Problems Acute respiratory distress (Acute) Acute respiratory failure (Acute) Acute respiratory failure requiring reintubation (Acute) Hyperkalemia (Acute) Hypernatremia (Acute) Sepsis (Acute) Hospital Course: Admitted due to Sepsis/ septic shock / Respiratory Failure. Admitted in ICU treated with abx Intubated / Successfully extubated Staph Bactremia MRSA + SPUTUM Recovered well No vegetations Now stable for d/c to alf Meds reconcilled In summary. RESPIRATORY FAILURE S/P EXTUBATION SEPTIC SHOCK UTI +BC R/O STAPH BACTEREMIA TOXIC METABOLIC ENCEPHALOPATHY LACTIC ACIDOSIS D/w Case Isidoro / RN also d/c cira D/W Dr. Chung also-- Agree with Plan Condition: Stable - Instructions Disposition: [facility] - Home Medications Comprehensive Discharge Medication List: Ambulatory Orders Atenolol [Tenormin -] 25 mg PO DAILY 12/26/14 Levothyroxine [Synthroid -] 50 mcg PO DAILY 12/26/14 Ferrous Sulfate [Feosol] 325 mg PO BID ud 12/27/14 Fenofibric Acid (Choline) [Trilipix] 135 mg PO DAILY 09/24/17 Vit A/Vitamin D3/E/Aloe V/Zinc [Periguard Ointment] 100 gm TP TID 09/24/17 Apixaban [Eliquis] 5 mg PO BID #90 tablet 09/30/17 Insulin Glargine,Hum.rec.anlog [Basaglar Kwikpen U-100] 18 unit SQ BID 03/06/18 Insulin Lispro [Humalog] 0 unit SQ ASDIR 03/06/18 Mirtazapine [Remeron Soltab -] 15 mg PO HS 03/06/18 Sennosides [Senna] 2 tab PO HS 03/06/18 Zinc Oxide 20% Topical Oint 1 applic .ROUTE DAILY 03/06/18
[2019-06-21 15:06] VITALS: BP 141/79; PULSE 62; TEMP 98.5
--- NOTE | 2019-06-21 15:16 | PN ---
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, Physician History of Present Illness: Pt seen and examined. She is tolerating diet. She denies shortness of breath. - Current Medication List Current Medications: Active Medications Acetaminophen (Tylenol -) 650 mg PO Q6H PRN PRN Reason: PAIN LEVEL 4 - 6 Last Admin: 06/20/19 18:24 Dose: 650 mg Documented by: Apixaban (Eliquis -) 5 mg PO BID [facility] Last Admin: 06/21/19 10:12 Dose: 5 mg Documented by: Atenolol (Tenormin -) 25 mg PO DAILY [facility] Last Admin: 06/21/19 10:12 Dose: 25 mg Documented by: Insulin Aspart (Novolog Vial Sliding Scale -) 1 vial SQ TIDAC [facility]; Protocol Last Admin: 06/21/19 14:14 Dose: 2 units Documented by: Insulin Detemir (Levemir Vial) 18 units SQ 0700,2200 [facility] Last Admin: 06/21/19 07:17 Dose: Not Given Documented by: Levothyroxine Sodium (Synthroid -) 50 mcg PO ACBK [facility] Last Admin: 06/21/19 07:18 Dose: 50 mcg Documented by: - Objective Vital Signs: Vital Signs Temperature 98.5 F 06/21/19 15:05 Pulse Rate 62 06/21/19 15:05 Respiratory Rate 18 06/21/19 15:05 Blood Pressure 141/79 06/21/19 15:05 O2 Sat by Pulse Oximetry (%) 100 06/21/19 09:00 Constitutional: Yes: Calm Eyes: Yes: Conjunctiva Clear HENT: Yes: Atraumatic Neck: Yes: Supple Cardiovascular: Yes: S1, S2 Respiratory: Yes: CTA Bilaterally Gastrointestinal: Yes: Soft Genitourinary: Yes: WNL, Incontinence Musculoskeletal: Yes: Muscle Weakness Edema: Yes Edema: LLE: Trace, RLE: Trace Neurological: Yes: Oriented Psychiatric: Yes: Oriented Labs: CBC, BMP 06/21/19 06:13 06/21/19 06:13 INR, PTT INR 1.44 (0.83-1.09) H 06/14/19 07:00 Assessment/Plan Current Medications Generic Name Dose Route Start Last Admin Trade Name Freq PRN Reason Stop Dose Admin Acetaminophen 650 mg 06/19/19 22:02 06/20/19 18:24 Tylenol - PO 650 mg Q6H PRN Administration PAIN LEVEL 4 - 6 Apixaban 5 mg 06/18/19 22:00 06/21/19 10:12 Eliquis - PO 5 mg BID [facility]ENI Administration Atenolol 25 mg 06/17/19 10:00 06/21/19 10:12 Tenormin - PO 25 mg DAILY [facility]I Administration Insulin Aspart 1 vial 06/16/19 07:00 06/21/19 14:14 Novolog Vial Sliding Scale - SQ 2 units TIDAC [facility]I Administration Protocol Insulin Detemir 18 units 06/17/19 22:00 06/21/19 07:17 Levemir Vial SQ Not Given 0700,2200 [facility] Levothyroxine Sodium 50 mcg 06/17/19 07:00 06/21/19 07:18 Synthroid - PO 50 mcg ACBK [facility] Administration Impression 1. hypernatremia 2. sepsis 3. O[place] resolving 4. resp failure 5. htn 6. dm Plan - renal function stable - pt tolerating diet - stable off of fluids - monitor lytes in rehab - outpt follow up
== END 2019-06-21 16:44 | DRG 871 ==
LOC: JER 20:34 → JERBED 22:38 → JICU 06-12 22:31 → J7W 06-15 17:38 → J4W 06-19 20:32
PROVIDERS: ADMIT Internal Medicine; ATTEND Internal Medicine
PROC: 5A1945Z Respiratory Ventilation, 24-96 Consecutive Hours (ICD-10-PCS; principal; 2019-06-11)
PROC: 0BH17EZ Insertion of Endotracheal Airway into Trachea, Via Natural or Artificial Opening (ICD-10-PCS; 2019-06-11)
PROC: 30233N1 Transfusion of Nonautologous Red Blood Cells into Peripheral Vein, Percutaneous Approach (ICD-10-PCS; 2019-06-12)
DX: A41.2 Sepsis due to unspecified staphylococcus (principal); J96.01 Acute respiratory failure with hypoxia; R53.2 Functional quadriplegia; G93.41 Metabolic encephalopathy; E87.0 Hyperosmolality and hypernatremia; N39.0 Urinary tract infection, site not specified; I50.32 Chronic diastolic (congestive) heart failure; I24.8 Other forms of acute ischemic heart disease; E87.2 Acidosis; N17.9 Acute kidney failure, unspecified; R65.20 Severe sepsis without septic shock; D64.9 Anemia, unspecified; E87.5 Hyperkalemia; E86.0 Dehydration; E03.9 Hypothyroidism, unspecified; F03.90 Unspecified dementia, unspecified severity, without behavioral disturbance, psychotic disturbance, mood disturbance, and anxiety; E78.5 Hyperlipidemia, unspecified; I48.0 Paroxysmal atrial fibrillation; I25.10 Atherosclerotic heart disease of native coronary artery without angina pectoris; E11.9 Type 2 diabetes mellitus without complications; I11.0 Hypertensive heart disease with heart failure
CPT/HCPCS: 36415; 36430; 36511; 36600; 71045-TC-FY; 80048; 80053; 81003; 82272; 82550; 82553; 82565; 82607; 82746; 82803; 82962; 83036; 83605; 83735; 83880; 83930; 83935; 84100; 84300; 84439; 84443; 84484; 85025; 85610; 85730; 86850; 86900; 86901; 86922; 87040; 87070; 87077; 87086; 87186; 87205; 87633; 87798; 87804; 93005; 93010; 93306-TC; 93971-TC; 94002; 97116-GP; 97161-GP; 99291; 99292; G0480; J0131; J7030; P9038; P9058

== ENCOUNTER 2020-02-23 09:32 | Day surgery (SDC) | payer OTHER ==
[2020-02-23 10:17] VITALS: BMI 19.9
[2020-02-23 10:19] VITALS: TEMP 97.8
[2020-02-23] MEDS ORDERED: DEXTROSE 50%-WATER 25 GM/50 ML DISP.SYRIN ONE (10:43)
[2020-02-23] MEDS ORDERED: LIDOCAINE HCL/PF 2% SDV 5ML VIAL ONE (11:13)
[2020-02-23] MEDS ORDERED: PROPOFOL 20 ML ONE (11:13)
[2020-02-23 12:53] VITALS: BP 110/65; PULSE 64
== END 2020-02-23 12:55 ==
LOC: FASU-ENDO 09:32
PROVIDERS: ATTEND Internal Medicine Gastroenterology
PROC: 0DB68ZX Excision of Stomach, Via Natural or Artificial Opening Endoscopic, Diagnostic (ICD-10-PCS; 2020-02-23)
PROC: 0DB48ZX Excision of Esophagogastric Junction, Via Natural or Artificial Opening Endoscopic, Diagnostic (ICD-10-PCS; 2020-02-23)
PROC: 0DB98ZX Excision of Duodenum, Via Natural or Artificial Opening Endoscopic, Diagnostic (ICD-10-PCS; principal; 2020-02-23 11:31)
DX: D64.9 Anemia, unspecified (principal); K29.80 Duodenitis without bleeding; K29.50 Unspecified chronic gastritis without bleeding; K21.00 Gastro-esophageal reflux disease with esophagitis, without bleeding
CPT/HCPCS: 82962; 88305-TC; 88342-TC

== ENCOUNTER 2020-09-26 18:54 | Inpatient (IN) | payer OTHER ==
[2020-09-26 20:13] LABS: BASO % 0.2 % (0-2.0); EOS % 1.4 % (0-4.5); HEMATOCRIT 20.7 % (32.4-45.2); MCH 30.5 pg (25.7-33.7); MCHC 32.3 g/dl (32.0-36.0); MEAN CELL VOLUME 94.4 fl (80-96); MONO % 6.5 % (3.8-10.2); NEUT % 77.9 % (42.8-82.8); PLATELET COUNT 225 10^3/uL (134-434); RDW 15.3 % (11.6-15.6); VENOUS O2 SATURATION 57.2 % (70-80); VENOUS PCO2 35.1 mmHg (38-52); VENOUS PH 7.352 (7.310-7.410); WHITE BLOOD COUNT 12.6 K/mm3 (4.0-10.0)
[2020-09-26] MEDS ORDERED: ACETAMINOPHEN 1000 MG/100 ML VIAL (NON FORMULARY) IVPB ONE (20:20)
[2020-09-26 20:24] LABS: ACTIVATED PTT 35.8 SECONDS (25.2-36.5)
[2020-09-26 20:36] LABS: HEMOGLOBIN 6.7 GM/dL (10.7-15.3)
[2020-09-26 20:44] LABS: INR 5.38 (0.83-1.09)
[2020-09-26 20:57] LABS: ALBUMIN 1.6 g/dl (3.4-5.0); BILIRUBIN,TOTAL 0.4 mg/dL (0.2-1); BLOOD UREA NITROGEN 60.7 mg/dL (7-18); CALCIUM 7.6 mg/dL (8.5-10.1); CREATININE 2.2 mg/dL (0.55-1.3); TOT PROT 5.8 g/dl (6.4-8.2)
[2020-09-26] MEDS ORDERED: ACETAMINOPHEN INJECTION 100 ML IVPB ONE (20:57)
[2020-09-26] MEDS ORDERED: SODIUM CHLORIDE 0.9% 500 ML INFUS.BAG IV ONE (21:18)
[2020-09-26 21:53] LABS: EPI CELLS >36 /uL (0-25.1); HYALINE CASTS 2 /uL (0-3.1); PH,URINE 5.5 (5.0-8.0); URINE APPEARANCE CLOUDY; URINE BACTERIA 13 /uL (0-1359); URINE BILIRUBIN NEGATIVE (NEGATIVE); URINE COLOR YELLOW; URINE GLUCOSE (UA) NEGATIVE (NEGATIVE); URINE KETONE NEGATIVE (NEGATIVE); URINE LEUK ESTERASE 2+ (NEGATIVE); URINE NITRITE NEGATIVE (NEGATIVE); URINE PROTEIN 2+ (NEGATIVE); URINE RBC 144 /uL (0-23.9); URINE WBC 371 /uL (0-25.8)
[2020-09-26] MEDS ORDERED: CEFTRIAXONE 1 GM in DEXTROSE 5%-WATER - 100 ML IVPB ONE (21:55)
[2020-09-26] MEDS ORDERED: CEFTRIAXONE 1 GM/50 ML BAG ONE (22:20)
[2020-09-26] MEDS ORDERED: AZITHROMYCIN IVPB 500 MG in DEXTROSE 5%-WATER - 250 ML IVPB ONE (22:31)
[2020-09-26] MEDS ORDERED: PIPERACILLIN/TAZOB 3.375 GM 3.375 GM in DEXTROSE 5%-WATER - 50 ML IVPB ONE (22:33)
[2020-09-26] MEDS ORDERED: PIPERACILLIN/TAZOB 3.375 GM 3.375 GM/50 ML BAG IVPB ONE (23:08)
[2020-09-27] MEDS ORDERED: ACETAMINOPHEN 325 MG TABLET (FP) PO PRN ×2 (05:34→18:47)
[2020-09-27 06:02] LABS: BASO % 0.2 % (0-2.0); EOS % 1.2 % (0-4.5); HEMATOCRIT 26.6 % (32.4-45.2); HEMOGLOBIN 8.5 GM/dL (10.7-15.3); LYMPH % 10.6 % (8-40); MCH 28.1 pg (25.7-33.7); MCHC 31.8 g/dl (32.0-36.0); MEAN CELL VOLUME 88.4 fl (80-96); MEAN PLT VOLUME 8.2 fl (7.5-11.1); MONO % 5.6 % (3.8-10.2); NEUT % 82.4 % (42.8-82.8); PLATELET COUNT 212 10^3/uL (134-434); RBC 3.01 M/mm3 (3.60-5.2); RDW 21.1 % (11.6-15.6); WHITE BLOOD COUNT 15.1 K/mm3 (4.0-10.0)
[2020-09-27] MEDS ORDERED: LEVOTHYROXINE NA 25 MCG TABLET (FP) ONE (06:04)
[2020-09-27] MEDS ORDERED: LEVOTHYROXINE NA 50 MCG TABLET (FP) PO SCH (07:00)
[2020-09-27 07:08] LABS: ANISOCYTOSIS 1+; MACROCYTOSIS 0; OVALOCYTE 1+; PLATELET ESTIMATE NORMAL
[2020-09-27 07:46] LABS: CALCIUM 7.8 mg/dL (8.5-10.1)
[2020-09-27 07:47] LABS: MAGNESIUM 2.4 mg/dL (1.8-2.4)
[2020-09-27 07:48] LABS: BLOOD UREA NITROGEN 55.6 mg/dL (7-18)
[2020-09-27 07:50] LABS: ALBUMIN 1.6 g/dl (3.4-5.0)
[2020-09-27 07:51] LABS: BILIRUBIN,TOTAL 0.5 mg/dL (0.2-1); CREATININE 2.1 mg/dL (0.55-1.3); TOT PROT 5.9 g/dl (6.4-8.2)
[2020-09-27] MEDS ORDERED: ASCORBIC ACID 500 MG TABLET (FP) ONE (09:04)
[2020-09-27] MEDS ORDERED: ATENOLOL 25 MG TABLET (FP) ONE (09:06)
[2020-09-27] MEDS ORDERED: ATENOLOL 25 MG TABLET (FP) PO SCH (10:00)
[2020-09-27] MEDS ORDERED: EZETIMIBE 10 MG TABLET (FP) PO SCH (10:00)
[2020-09-27] MEDS ORDERED: PIPERACILLIN/TAZOB 2.25 GM 2.25 GM in DEXTROSE 5%-WATER - 50 ML IVPB SCH (10:00)
[2020-09-27] MEDS ORDERED: FENOFIBRIC ACID 135 MG CAP PO SCH (10:00)
[2020-09-27] MEDS ORDERED: NYSTATIN 100,000 UNIT/GM TOPICAL CREAM 15 GM TUBE TP SCH (10:00)
[2020-09-27] MEDS ORDERED: ASCORBIC ACID 500 MG TABLET (FP) PO SCH (10:00)
[2020-09-27] MEDS ORDERED: DEXTROSE 5%-0.45% SALINE 1,000 ML IV SCH (10:00)
[2020-09-27] MEDS: FERROUS SO4 325 MG TABLET (FP) PO SCH (10:24)
[2020-09-27] MEDS ORDERED: PIPERACILLIN/TAZOB 2.25 GM 2.25 GM/50 ML BAG IVPB ONE (10:46)
[2020-09-27] MEDS: PIPERACILLIN/TAZOB 2.25 GM 2.25 GM in DEXTROSE 5%-WATER - 50 ML IVPB SCH (11:00)
[2020-09-27] MEDS ORDERED: KETAMINE HCL 200 MG/20 ML VIAL ONE (17:22)
[2020-09-27] MEDS ORDERED: ONDANSETRON 4 MG/2 ML VIAL IVPUSH PRN (18:23)
[2020-09-27] MEDS: DEXTROSE 5%-0.45% SALINE 1,000 ML IV SCH (20:21)
[2020-09-27] MEDS ORDERED: ATORVASTATIN CA 20 MG TABLET (FP) PO SCH (22:00)
[2020-09-27] MEDS ORDERED: SENNOSIDES 8.6MG TABLET (FP) PO SCH (22:00)
[2020-09-27] MEDS ORDERED: MIRTAZAPINE 15 MG TABLET (FP) PO SCH (22:00)
[2020-09-27] MEDS: SENNOSIDES 8.6MG TABLET (FP) PO SCH (22:13)
[2020-09-27] MEDS: MIRTAZAPINE 15 MG TABLET (FP) PO SCH (22:13)
[2020-09-27] MEDS: ATORVASTATIN CA 20 MG TABLET (FP) PO SCH (22:13)
[2020-09-28] MEDS: NYSTATIN 100,000 UNIT/GM TOPICAL CREAM 15 GM TUBE TP SCH ×4 (00:04→21:05)
[2020-09-28] MEDS ORDERED: PIPERACILLIN/TAZOB 2.25 GM 2.25 GM in DEXTROSE 5%-WATER - 50 ML IVPB SCH (02:00)
[2020-09-28 05:58] LABS: BASO % 0.3 % (0-2.0); EOS % 0.2 % (0-4.5); HEMATOCRIT 25.6 % (32.4-45.2); HEMOGLOBIN 8.2 GM/dL (10.7-15.3); LYMPH % 7.9 % (8-40); MCH 28.2 pg (25.7-33.7); MCHC 32.2 g/dl (32.0-36.0); MEAN CELL VOLUME 87.7 fl (80-96); MEAN PLT VOLUME 8.7 fl (7.5-11.1); MONO % 6.3 % (3.8-10.2); NEUT % 85.3 % (42.8-82.8); PLATELET COUNT 228 10^3/uL (134-434); RBC 2.91 M/mm3 (3.60-5.2); RDW 22.3 % (11.6-15.6); WHITE BLOOD COUNT 14.9 K/mm3 (4.0-10.0)
[2020-09-28] MEDS: LEVOTHYROXINE NA 50 MCG TABLET (FP) PO SCH (06:10)
[2020-09-28 06:17] LABS: PROTHROMBIN TIME (PATIENT) 70.9 SEC (9.7-13.0)
[2020-09-28 06:20] LABS: ACTIVATED PTT 39.3 SECONDS (25.2-36.5)
[2020-09-28 06:26] LABS: CALCIUM 7.9 mg/dL (8.5-10.1)
[2020-09-28 06:27] LABS: BLOOD UREA NITROGEN 51.8 mg/dL (7-18)
[2020-09-28] MEDS ORDERED: PIPERACILLIN/TAZOB 3.375 GM 3.375 GM in DEXTROSE 5%-WATER - 50 ML IVPB SCH (06:45)
[2020-09-28] MEDS ORDERED: DEXTROSE 5%-WATER - 50 ML IVPB ONE ×4 (07:31→16:40)
[2020-09-28] MEDS ORDERED: PIPERACILLIN/TAZOBACTAM 2.25 GM VIAL IVPB ONE ×2 (07:31→09:37)
[2020-09-28] MEDS: PIPERACILLIN/TAZOB 2.25 GM 2.25 GM in DEXTROSE 5%-WATER - 50 ML IVPB SCH (07:39)
[2020-09-28 07:43] LABS: INR 6.18 (0.83-1.09)
[2020-09-28] MEDS ORDERED: cefTRIAXone SODIUM 1 GM VIAL ONE (07:56)
[2020-09-28] MEDS ORDERED: CEFTRIAXONE 1 GM in DEXTROSE 5%-WATER - 50 ML IVPB SCH (08:00)
[2020-09-28] MEDS ORDERED: CEFTRIAXONE 1,000 MG in DEXTROSE 5%-WATER - 50 ML IVPB SCH (08:00)
[2020-09-28] MEDS ORDERED: PHYTONADIONE 10 MG/1 ML AMP SQ ONE (09:27)
[2020-09-28] MEDS: EZETIMIBE 10 MG TABLET (FP) PO SCH (09:46)
[2020-09-28] MEDS: FERROUS SO4 325 MG TABLET (FP) PO SCH ×2 (09:46→17:00)
[2020-09-28] MEDS: ATENOLOL 25 MG TABLET (FP) PO SCH (09:46)
[2020-09-28] MEDS: ASCORBIC ACID 500 MG TABLET (FP) PO SCH (09:46)
[2020-09-28] MEDS: FENOFIBRIC ACID 135 MG CAP PO SCH (09:46)
[2020-09-28 14:46] VITALS: BMI 22.2
[2020-09-28] MEDS ORDERED: PIPERACILLIN/TAZOBACTAM 3.375 GM VIAL IVPB ONE (16:40)
[2020-09-28] MEDS: INSULIN SLIDING SCALE (NOVOLOG) 1 VIAL SQ SCH ×2 (16:59→21:04)
[2020-09-28] MEDS: DEXTROSE 5%-0.45% SALINE 1,000 ML IV SCH ×2 (17:00→19:20)
[2020-09-28] MEDS: PIPERACILLIN/TAZOB 3.375 GM 3.375 GM in DEXTROSE 5%-WATER - 50 ML IVPB SCH (17:00)
[2020-09-28] MEDS: AMINO ACIDS/PROTEIN HYDROLYS 30 ML LIQUID.PKT PO SCH (17:00)
[2020-09-28] MEDS: MIRTAZAPINE 15 MG TABLET (FP) PO SCH (21:04)
[2020-09-28] MEDS: SENNOSIDES 8.6MG TABLET (FP) PO SCH (21:04)
[2020-09-28] MEDS: ATORVASTATIN CA 20 MG TABLET (FP) PO SCH (21:05)
[2020-09-29] MEDS ORDERED: PIPERACILLIN/TAZOBACTAM 3.375 GM VIAL IVPB ONE ×2 (01:56→09:09)
[2020-09-29] MEDS ORDERED: DEXTROSE 5%-WATER - 50 ML IVPB ONE ×2 (01:56→09:10)
[2020-09-29] MEDS: PIPERACILLIN/TAZOB 3.375 GM 3.375 GM in DEXTROSE 5%-WATER - 50 ML IVPB SCH ×2 (02:02→10:06)
[2020-09-29] MEDS: LEVOTHYROXINE NA 50 MCG TABLET (FP) PO SCH (06:01)
[2020-09-29] MEDS: INSULIN SLIDING SCALE (NOVOLOG) 1 VIAL SQ SCH ×4 (06:01→21:37)
[2020-09-29] MEDS: DEXTROSE 5%-0.45% SALINE 1,000 ML IV SCH ×2 (06:20→20:05)
[2020-09-29 06:32] LABS: BASO % 0.1 % (0-2.0); EOS % 1.4 % (0-4.5); HEMATOCRIT 23.3 % (32.4-45.2); HEMOGLOBIN 7.5 GM/dL (10.7-15.3); LYMPH % 9.5 % (8-40); MCH 28.2 pg (25.7-33.7); MCHC 32.1 g/dl (32.0-36.0); MEAN CELL VOLUME 87.8 fl (80-96); MEAN PLT VOLUME 8.1 fl (7.5-11.1); MONO % 5.4 % (3.8-10.2); NEUT % 83.6 % (42.8-82.8); PLATELET COUNT 225 10^3/uL (134-434); RBC 2.65 M/mm3 (3.60-5.2); WHITE BLOOD COUNT 15.9 K/mm3 (4.0-10.0)
[2020-09-29 06:58] LABS: INR 1.82 (0.83-1.09)
[2020-09-29 07:01] LABS: CALCIUM 7.8 mg/dL (8.5-10.1)
[2020-09-29 07:02] LABS: ALBUMIN 1.4 g/dl (3.4-5.0); BLOOD UREA NITROGEN 51.4 mg/dL (7-18)
[2020-09-29 07:05] LABS: CREATININE 2.2 mg/dL (0.55-1.3)
[2020-09-29 07:07] LABS: BILIRUBIN,TOTAL 0.4 mg/dL (0.2-1); TOT PROT 5.4 g/dl (6.4-8.2)
[2020-09-29] MEDS: AMINO ACIDS/PROTEIN HYDROLYS 30 ML LIQUID.PKT PO SCH ×2 (10:07→17:27)
[2020-09-29] MEDS: FENOFIBRIC ACID 135 MG CAP PO SCH (10:07)
[2020-09-29] MEDS: ATENOLOL 25 MG TABLET (FP) PO SCH ×2 (10:07→21:37)
[2020-09-29] MEDS: NYSTATIN 100,000 UNIT/GM TOPICAL CREAM 15 GM TUBE TP SCH ×2 (10:07→21:37)
[2020-09-29] MEDS: ASCORBIC ACID 500 MG TABLET (FP) PO SCH (10:07)
[2020-09-29] MEDS: EZETIMIBE 10 MG TABLET (FP) PO SCH (10:07)
[2020-09-29] MEDS: FERROUS SO4 325 MG TABLET (FP) PO SCH ×2 (10:08→17:27)
[2020-09-29] MEDS ORDERED: PT OWN MED DRAWER 7, Y5N ONE (10:09)
[2020-09-29 10:11] LABS: ANISOCYTOSIS 1+; MACROCYTOSIS 0; OVALOCYTE 1+; PLATELET ESTIMATE NORMAL; TOXIC GRANULATION 1+
[2020-09-29] MEDS: MULTIVIT-MINERALS ORAL LIQUID PO SCH (10:13)
[2020-09-29] MEDS ORDERED: DEXTROSE 5%-WATER 100 ML IVPB ONE (14:00)
[2020-09-29] MEDS: CEFTRIAXONE 2 GM in DEXTROSE 5%-WATER 2 GM/100 ML BAG IVPB SCH (14:17)
[2020-09-29] MEDS: MIRTAZAPINE 15 MG TABLET (FP) PO SCH (21:37)
[2020-09-29] MEDS: INSULIN (LEVEMIR) 100 UNITS/ML UNITS SQ SCH (21:37)
[2020-09-29] MEDS: ATORVASTATIN CA 20 MG TABLET (FP) PO SCH (21:37)
[2020-09-29] MEDS: SENNOSIDES 8.6MG TABLET (FP) PO SCH (21:37)
[2020-09-30] MEDS: LEVOTHYROXINE NA 50 MCG TABLET (FP) PO SCH (06:18)
[2020-09-30] MEDS: INSULIN SLIDING SCALE (NOVOLOG) 1 VIAL SQ SCH ×4 (06:19→23:12)
[2020-09-30] MEDS: DEXTROSE 5%-0.45% SALINE 1,000 ML IV SCH ×2 (06:35→23:20)
[2020-09-30 08:06] LABS: BASO % 0.3 % (0-2.0); EOS % 0.9 % (0-4.5); HEMATOCRIT 22.8 % (32.4-45.2); HEMOGLOBIN 7.4 GM/dL (10.7-15.3); LYMPH % 9.2 % (8-40); MCH 28.1 pg (25.7-33.7); MCHC 32.3 g/dl (32.0-36.0); MEAN PLT VOLUME 8.9 fl (7.5-11.1); MONO % 7.1 % (3.8-10.2); NEUT % 82.5 % (42.8-82.8); PLATELET COUNT 252 10^3/uL (134-434); RBC 2.62 M/mm3 (3.60-5.2); RDW 21.5 % (11.6-15.6); WHITE BLOOD COUNT 17.9 K/mm3 (4.0-10.0)
[2020-09-30 08:42] LABS: CALCIUM 7.8 mg/dL (8.5-10.1)
[2020-09-30 08:43] LABS: ALBUMIN 1.4 g/dl (3.4-5.0); BLOOD UREA NITROGEN 39.2 mg/dL (7-18)
[2020-09-30 08:46] LABS: CREATININE 1.6 mg/dL (0.55-1.3)
[2020-09-30 08:47] LABS: BILIRUBIN,TOTAL 0.3 mg/dL (0.2-1); TOT PROT 5.8 g/dl (6.4-8.2)
[2020-09-30 09:03] LABS: ANISOCYTOSIS 2+; MACROCYTOSIS 0; PLATELET ESTIMATE NORMAL
[2020-09-30] MEDS ORDERED: DEXTROSE 5%-WATER 100 ML IVPB ONE ×2 (09:35→10:29)
[2020-09-30] MEDS: FERROUS SO4 325 MG TABLET (FP) PO SCH ×3 (10:35→21:34)
[2020-09-30] MEDS: ASCORBIC ACID 500 MG TABLET (FP) PO SCH (10:35)
[2020-09-30] MEDS: ATENOLOL 25 MG TABLET (FP) PO SCH ×2 (10:35→23:07)
[2020-09-30] MEDS: CEFTRIAXONE 2 GM in DEXTROSE 5%-WATER 2 GM/100 ML BAG IVPB SCH (10:35)
[2020-09-30] MEDS: MULTIVIT-MINERALS ORAL LIQUID PO SCH (10:36)
[2020-09-30] MEDS: EZETIMIBE 10 MG TABLET (FP) PO SCH (10:36)
[2020-09-30] MEDS: FENOFIBRIC ACID 135 MG CAP PO SCH (10:36)
[2020-09-30] MEDS: AMINO ACIDS/PROTEIN HYDROLYS 30 ML LIQUID.PKT PO SCH ×2 (10:36→17:47)
[2020-09-30] MEDS: NYSTATIN 100,000 UNIT/GM TOPICAL CREAM 15 GM TUBE TP SCH ×2 (10:37→23:06)
[2020-09-30] MEDS: PIPERACILLIN/TAZOB 2.25 GM 2.25 GM in DEXTROSE 5%-WATER - 50 ML IVPB SCH ×3 (21:34→21:35)
[2020-09-30] MEDS: SENNOSIDES 8.6MG TABLET (FP) PO SCH (23:03)
[2020-09-30] MEDS: ATORVASTATIN CA 20 MG TABLET (FP) PO SCH (23:05)
[2020-09-30] MEDS: INSULIN (LEVEMIR) 100 UNITS/ML UNITS SQ SCH (23:05)
[2020-09-30] MEDS: MIRTAZAPINE 15 MG TABLET (FP) PO SCH (23:06)
[2020-10-01] MEDS: LEVOTHYROXINE NA 50 MCG TABLET (FP) PO SCH (06:10)
[2020-10-01] MEDS: INSULIN SLIDING SCALE (NOVOLOG) 1 VIAL SQ SCH ×4 (06:10→21:52)
[2020-10-01 07:46] LABS: HEMATOCRIT 23.7 % (32.4-45.2); HEMOGLOBIN 7.6 GM/dL (10.7-15.3); MCH 28.4 pg (25.7-33.7); MCHC 32.1 g/dl (32.0-36.0); MEAN CELL VOLUME 88.5 fl (80-96); PLATELET COUNT 303 10^3/uL (134-434); RBC 2.68 M/mm3 (3.60-5.2); RDW 21.3 % (11.6-15.6); WHITE BLOOD COUNT 17.6 K/mm3 (4.0-10.0)
[2020-10-01 07:47] LABS: ALBUMIN 1.5 g/dl (3.4-5.0); BLOOD UREA NITROGEN 30.2 mg/dL (7-18); CALCIUM 7.9 mg/dL (8.5-10.1)
[2020-10-01 07:50] LABS: CREATININE 1.2 mg/dL (0.55-1.3)
[2020-10-01 07:52] LABS: BILIRUBIN,TOTAL 0.3 mg/dL (0.2-1); TOT PROT 6.1 g/dl (6.4-8.2)
[2020-10-01] MEDS ORDERED: PT OWN MED DRAWER 7, Y5N ONE (09:31)
[2020-10-01] MEDS ORDERED: DEXTROSE 5%-WATER 100 ML IVPB ONE (09:31)
[2020-10-01] MEDS: FERROUS SO4 325 MG TABLET (FP) PO SCH ×2 (09:33→16:47)
[2020-10-01] MEDS: ATENOLOL 25 MG TABLET (FP) PO SCH ×2 (09:33→22:01)
[2020-10-01] MEDS: ASCORBIC ACID 500 MG TABLET (FP) PO SCH (09:33)
[2020-10-01] MEDS: MULTIVIT-MINERALS ORAL LIQUID PO SCH (09:33)
[2020-10-01] MEDS: FENOFIBRIC ACID 135 MG CAP PO SCH (09:33)
[2020-10-01] MEDS: CEFTRIAXONE 2 GM in DEXTROSE 5%-WATER 2 GM/100 ML BAG IVPB SCH (09:33)
[2020-10-01] MEDS: EZETIMIBE 10 MG TABLET (FP) PO SCH (09:33)
[2020-10-01] MEDS: NYSTATIN 100,000 UNIT/GM TOPICAL CREAM 15 GM TUBE TP SCH ×2 (09:34→22:01)
[2020-10-01] MEDS: POTASSIUM CHLORIDE ORAL LIQUID 20 MEQ/15 ML PO ONE ×2 (09:51→10:31)
[2020-10-01] MEDS: AMINO ACIDS 4.25%/D5W 1,000 ML IV SCH (10:01)
[2020-10-01] MEDS: AMINO ACIDS/PROTEIN HYDROLYS 30 ML LIQUID.PKT PO SCH ×2 (10:01→16:47)
[2020-10-01] MEDS: MIRTAZAPINE 15 MG TABLET (FP) PO SCH (22:01)
[2020-10-01] MEDS: INSULIN (LEVEMIR) 100 UNITS/ML UNITS SQ SCH (22:01)
[2020-10-01] MEDS: ATORVASTATIN CA 20 MG TABLET (FP) PO SCH (22:01)
[2020-10-01] MEDS: SENNOSIDES 8.6MG TABLET (FP) PO SCH (22:01)
[2020-10-02] MEDS: AMINO ACIDS 4.25%/D5W 1,000 ML IV SCH ×3 (02:20→13:20)
[2020-10-02] MEDS: INSULIN SLIDING SCALE (NOVOLOG) 1 VIAL SQ SCH ×4 (06:01→21:41)
[2020-10-02] MEDS: LEVOTHYROXINE NA 50 MCG TABLET (FP) PO SCH (06:02)
[2020-10-02 06:57] LABS: BASO % 0.2 % (0-2.0); HEMATOCRIT 23.8 % (32.4-45.2); HEMOGLOBIN 7.7 GM/dL (10.7-15.3); LYMPH % 12.4 % (8-40); MCH 28.5 pg (25.7-33.7); MCHC 32.5 g/dl (32.0-36.0); MEAN CELL VOLUME 87.7 fl (80-96); MEAN PLT VOLUME 8.6 fl (7.5-11.1); MONO % 5.3 % (3.8-10.2); NEUT % 81.1 % (42.8-82.8); PLATELET COUNT 341 10^3/uL (134-434); RBC 2.72 M/mm3 (3.60-5.2); RDW 20.8 % (11.6-15.6); WHITE BLOOD COUNT 16.1 K/mm3 (4.0-10.0)
[2020-10-02 07:22] LABS: CALCIUM 7.6 mg/dL (8.5-10.1)
[2020-10-02 07:23] LABS: ALBUMIN 1.4 g/dl (3.4-5.0); BLOOD UREA NITROGEN 39.8 mg/dL (7-18)
[2020-10-02 07:26] LABS: CREATININE 1.1 mg/dL (0.55-1.3)
[2020-10-02 07:27] LABS: BILIRUBIN,TOTAL 0.2 mg/dL (0.2-1); TOT PROT 5.6 g/dl (6.4-8.2)
[2020-10-02] MEDS ORDERED: DEXTROSE 5%-WATER 100 ML IVPB ONE (09:16)
[2020-10-02] MEDS ORDERED: PT OWN MED DRAWER 7, Y5N ONE (09:16)
[2020-10-02] MEDS: FENOFIBRIC ACID 135 MG CAP PO SCH (09:37)
[2020-10-02] MEDS: FERROUS SO4 325 MG TABLET (FP) PO SCH ×2 (09:37→16:57)
[2020-10-02] MEDS: CEFTRIAXONE 2 GM in DEXTROSE 5%-WATER 2 GM/100 ML BAG IVPB SCH (09:37)
[2020-10-02] MEDS: ASCORBIC ACID 500 MG TABLET (FP) PO SCH (09:37)
[2020-10-02] MEDS: MULTIVIT-MINERALS ORAL LIQUID PO SCH (09:38)
[2020-10-02] MEDS: ATENOLOL 25 MG TABLET (FP) PO SCH ×2 (09:39→21:45)
[2020-10-02] MEDS: EZETIMIBE 10 MG TABLET (FP) PO SCH (09:40)
[2020-10-02] MEDS: AMINO ACIDS/PROTEIN HYDROLYS 30 ML LIQUID.PKT PO SCH ×2 (09:42→16:57)
[2020-10-02] MEDS: NYSTATIN 100,000 UNIT/GM TOPICAL CREAM 15 GM TUBE TP SCH ×2 (11:25→21:45)
[2020-10-02] MEDS: INSULIN (LEVEMIR) 100 UNITS/ML UNITS SQ SCH (21:41)
[2020-10-02] MEDS: MIRTAZAPINE 15 MG TABLET (FP) PO SCH (21:43)
[2020-10-02] MEDS: ATORVASTATIN CA 20 MG TABLET (FP) PO SCH (21:44)
[2020-10-02] MEDS: SENNOSIDES 8.6MG TABLET (FP) PO SCH (21:44)
[2020-10-02] MEDS ORDERED: APIXABAN 2.5 MG TABLET PO SCH (22:00)
[2020-10-03] MEDS: AMINO ACIDS 4.25%/D5W 1,000 ML IV SCH ×2 (06:33→17:43)
[2020-10-03] MEDS: LEVOTHYROXINE NA 50 MCG TABLET (FP) PO SCH (06:34)
[2020-10-03] MEDS: INSULIN SLIDING SCALE (NOVOLOG) 1 VIAL SQ SCH ×4 (06:45→22:13)
[2020-10-03 07:29] LABS: BASO % 0.5 % (0-2.0); EOS % 1.4 % (0-4.5); HEMATOCRIT 22.5 % (32.4-45.2); HEMOGLOBIN 7.2 GM/dL (10.7-15.3); LYMPH % 17.7 % (8-40); MCH 28.4 pg (25.7-33.7); MCHC 31.9 g/dl (32.0-36.0); MEAN PLT VOLUME 9.1 fl (7.5-11.1); MONO % 6.1 % (3.8-10.2); NEUT % 74.3 % (42.8-82.8); PLATELET COUNT 382 10^3/uL (134-434); RBC 2.52 M/mm3 (3.60-5.2); RDW 20.5 % (11.6-15.6); WHITE BLOOD COUNT 14.6 K/mm3 (4.0-10.0)
[2020-10-03 07:56] LABS: ALBUMIN 1.5 g/dl (3.4-5.0); CALCIUM 8.1 mg/dL (8.5-10.1)
[2020-10-03 07:59] LABS: CREATININE 1.1 mg/dL (0.55-1.3)
[2020-10-03 08:01] LABS: BILIRUBIN,TOTAL 0.2 mg/dL (0.2-1); TOT PROT 6.1 g/dl (6.4-8.2)
[2020-10-03] MEDS ORDERED: DEXTROSE 5%-WATER 100 ML IVPB ONE (09:15)
[2020-10-03] MEDS: AMINO ACIDS/PROTEIN HYDROLYS 30 ML LIQUID.PKT PO SCH ×2 (09:22→17:23)
[2020-10-03] MEDS: MULTIVIT-MINERALS ORAL LIQUID PO SCH (09:23)
[2020-10-03] MEDS: EZETIMIBE 10 MG TABLET (FP) PO SCH (09:23)
[2020-10-03] MEDS: ATENOLOL 25 MG TABLET (FP) PO SCH ×2 (09:23→22:09)
[2020-10-03] MEDS: FENOFIBRIC ACID 135 MG CAP PO SCH (09:23)
[2020-10-03] MEDS: ASCORBIC ACID 500 MG TABLET (FP) PO SCH (09:23)
[2020-10-03] MEDS: FERROUS SO4 325 MG TABLET (FP) PO SCH ×2 (09:23→17:22)
[2020-10-03] MEDS: CEFTRIAXONE 2 GM in DEXTROSE 5%-WATER 2 GM/100 ML BAG IVPB SCH (09:24)
[2020-10-03] MEDS: NYSTATIN 100,000 UNIT/GM TOPICAL CREAM 15 GM TUBE TP SCH ×2 (09:24→22:14)
[2020-10-03] MEDS: MIRTAZAPINE 15 MG TABLET (FP) PO SCH (22:08)
[2020-10-03] MEDS: SENNOSIDES 8.6MG TABLET (FP) PO SCH (22:08)
[2020-10-03] MEDS: ATORVASTATIN CA 20 MG TABLET (FP) PO SCH (22:08)
[2020-10-03] MEDS: MINERAL OIL/PET HY-PHL TOPICAL OINTMENT 454 GM JAR TP SCH (22:13)
[2020-10-03] MEDS: INSULIN (LEVEMIR) 100 UNITS/ML UNITS SQ SCH (22:14)
[2020-10-03] MEDS: ACETAMINOPHEN 325 MG TABLET (FP) PO PRN (22:44)
[2020-10-04] MEDS: LEVOTHYROXINE NA 50 MCG TABLET (FP) PO SCH (06:37)
[2020-10-04] MEDS: ACETAMINOPHEN 325 MG TABLET (FP) PO PRN ×2 (06:37→16:52)
[2020-10-04] MEDS: INSULIN SLIDING SCALE (NOVOLOG) 1 VIAL SQ SCH ×4 (06:44→22:10)
[2020-10-04] MEDS: FERROUS SO4 325 MG TABLET (FP) PO SCH ×2 (07:59→16:52)
[2020-10-04] MEDS: AMINO ACIDS/PROTEIN HYDROLYS 30 ML LIQUID.PKT PO SCH ×2 (07:59→16:52)
[2020-10-04] MEDS ORDERED: PT OWN MED DRAWER 7, Y5N ONE (09:34)
[2020-10-04] MEDS ORDERED: DEXTROSE 5%-WATER 100 ML IVPB ONE ×2 (09:35→09:37)
[2020-10-04] MEDS: NYSTATIN 100,000 UNIT/GM TOPICAL CREAM 15 GM TUBE TP SCH ×2 (09:39→22:04)
[2020-10-04] MEDS: EZETIMIBE 10 MG TABLET (FP) PO SCH (09:40)
[2020-10-04] MEDS: MINERAL OIL/PET HY-PHL TOPICAL OINTMENT 454 GM JAR TP SCH ×2 (09:40→22:04)
[2020-10-04] MEDS: ATENOLOL 25 MG TABLET (FP) PO SCH ×2 (09:40→22:03)
[2020-10-04] MEDS: FENOFIBRIC ACID 135 MG CAP PO SCH (09:40)
[2020-10-04] MEDS: MULTIVIT-MINERALS ORAL LIQUID PO SCH (09:40)
[2020-10-04] MEDS: ASCORBIC ACID 500 MG TABLET (FP) PO SCH (09:40)
[2020-10-04] MEDS: CEFTRIAXONE 2 GM in DEXTROSE 5%-WATER 2 GM/100 ML BAG IVPB SCH (09:40)
[2020-10-04] MEDS: COLLAGENASE CLOSTRIDIUM HIST. 30 GRAMS TUBE TP SCH (18:41)
[2020-10-04 19:23] LABS: INR 1.24 (0.83-1.09); PROTHROMBIN TIME (PATIENT) 15.1 SEC (9.7-13.0)
[2020-10-04] MEDS: ATORVASTATIN CA 20 MG TABLET (FP) PO SCH (22:03)
[2020-10-04] MEDS: MIRTAZAPINE 15 MG TABLET (FP) PO SCH (22:03)
[2020-10-04] MEDS: SENNOSIDES 8.6MG TABLET (FP) PO SCH (22:03)
[2020-10-04] MEDS: INSULIN (LEVEMIR) 100 UNITS/ML UNITS SQ SCH (22:06)
[2020-10-05] MEDS ORDERED: PT OWN MED DRAWER 7, Y5N ONE ×2 (06:05→11:24)
[2020-10-05] MEDS: INSULIN SLIDING SCALE (NOVOLOG) 1 VIAL SQ SCH ×4 (06:29→22:13)
[2020-10-05] MEDS: LEVOTHYROXINE NA 50 MCG TABLET (FP) PO SCH (06:29)
[2020-10-05 08:52] LABS: HEMATOCRIT 22.7 % (32.4-45.2); HEMOGLOBIN 7.3 GM/dL (10.7-15.3); MCH 28.7 pg (25.7-33.7); MEAN CELL VOLUME 89.6 fl (80-96); MEAN PLT VOLUME 8.3 fl (7.5-11.1); PLATELET COUNT 468 10^3/uL (134-434); RBC 2.53 M/mm3 (3.60-5.2); RDW 20.4 % (11.6-15.6); WHITE BLOOD COUNT 11.6 K/mm3 (4.0-10.0)
[2020-10-05 09:31] LABS: ALBUMIN 1.6 g/dl (3.4-5.0); BLOOD UREA NITROGEN 39.5 mg/dL (7-18)
[2020-10-05 09:32] LABS: BILIRUBIN,TOTAL 0.2 mg/dL (0.2-1)
[2020-10-05 09:33] LABS: CALCIUM 8.6 mg/dL (8.5-10.1); TOT PROT 6.2 g/dl (6.4-8.2)
[2020-10-05] MEDS ORDERED: DEXTROSE 5%-WATER 100 ML IVPB ONE (11:24)
[2020-10-05] MEDS: ASCORBIC ACID 500 MG TABLET (FP) PO SCH (11:28)
[2020-10-05] MEDS: FERROUS SO4 325 MG TABLET (FP) PO SCH ×2 (11:28→16:56)
[2020-10-05] MEDS: AMINO ACIDS/PROTEIN HYDROLYS 30 ML LIQUID.PKT PO SCH ×2 (11:28→16:55)
[2020-10-05] MEDS: ATENOLOL 25 MG TABLET (FP) PO SCH ×2 (11:28→22:09)
[2020-10-05] MEDS: FENOFIBRIC ACID 135 MG CAP PO SCH (11:28)
[2020-10-05] MEDS: CEFTRIAXONE 2 GM in DEXTROSE 5%-WATER 2 GM/100 ML BAG IVPB SCH (11:28)
[2020-10-05] MEDS: EZETIMIBE 10 MG TABLET (FP) PO SCH (11:28)
[2020-10-05] MEDS: COLLAGENASE CLOSTRIDIUM HIST. 30 GRAMS TUBE TP SCH (11:29)
[2020-10-05] MEDS: NYSTATIN 100,000 UNIT/GM TOPICAL CREAM 15 GM TUBE TP SCH ×2 (11:29→22:14)
[2020-10-05] MEDS: MINERAL OIL/PET HY-PHL TOPICAL OINTMENT 454 GM JAR TP SCH ×2 (11:29→22:14)
[2020-10-05] MEDS: MULTIVIT-MINERALS ORAL LIQUID PO SCH (11:29)
[2020-10-05] MEDS: SENNOSIDES 8.6MG TABLET (FP) PO SCH (22:09)
[2020-10-05] MEDS: ATORVASTATIN CA 20 MG TABLET (FP) PO SCH (22:09)
[2020-10-05] MEDS: MIRTAZAPINE 15 MG TABLET (FP) PO SCH (22:09)
[2020-10-05] MEDS: INSULIN (LEVEMIR) 100 UNITS/ML UNITS SQ SCH (22:13)
[2020-10-06] MEDS: LEVOTHYROXINE NA 50 MCG TABLET (FP) PO SCH (06:03)
[2020-10-06] MEDS: INSULIN SLIDING SCALE (NOVOLOG) 1 VIAL SQ SCH ×4 (06:03→21:51)
[2020-10-06] MEDS ORDERED: PT OWN MED DRAWER 7, Y5N ONE (10:53)
[2020-10-06] MEDS ORDERED: DEXTROSE 5%-WATER 100 ML IVPB ONE (10:55)
[2020-10-06] MEDS: EZETIMIBE 10 MG TABLET (FP) PO SCH (11:01)
[2020-10-06] MEDS: CEFTRIAXONE 2 GM in DEXTROSE 5%-WATER 2 GM/100 ML BAG IVPB SCH (11:01)
[2020-10-06] MEDS: AMINO ACIDS/PROTEIN HYDROLYS 30 ML LIQUID.PKT PO SCH ×2 (11:01→17:03)
[2020-10-06] MEDS: FERROUS SO4 325 MG TABLET (FP) PO SCH ×2 (11:01→17:03)
[2020-10-06] MEDS: FENOFIBRIC ACID 135 MG CAP PO SCH (11:01)
[2020-10-06] MEDS: COLLAGENASE CLOSTRIDIUM HIST. 30 GRAMS TUBE TP SCH (11:02)
[2020-10-06] MEDS: ATENOLOL 25 MG TABLET (FP) PO SCH ×2 (11:02→21:49)
[2020-10-06] MEDS: MINERAL OIL/PET HY-PHL TOPICAL OINTMENT 454 GM JAR TP SCH ×2 (11:02→21:59)
[2020-10-06] MEDS: ASCORBIC ACID 500 MG TABLET (FP) PO SCH (11:02)
[2020-10-06] MEDS: MULTIVIT-MINERALS ORAL LIQUID PO SCH (11:02)
[2020-10-06] MEDS: NYSTATIN 100,000 UNIT/GM TOPICAL CREAM 15 GM TUBE TP SCH ×2 (11:04→21:59)
[2020-10-06 12:21] LABS: BASO % 1.2 % (0-2.0); EOS % 1.2 % (0-4.5); HEMATOCRIT 26.4 % (32.4-45.2); HEMOGLOBIN 8.4 GM/dL (10.7-15.3); LYMPH % 21.3 % (8-40); MCHC 31.7 g/dl (32.0-36.0); MEAN CELL VOLUME 91.6 fl (80-96); MEAN PLT VOLUME 8.9 fl (7.5-11.1); NEUT % 68.3 % (42.8-82.8); PLATELET COUNT 504 10^3/uL (134-434); RBC 2.88 M/mm3 (3.60-5.2); RDW 21.6 % (11.6-15.6); WHITE BLOOD COUNT 9.4 K/mm3 (4.0-10.0)
[2020-10-06 12:46] LABS: ALBUMIN 1.8 g/dl (3.4-5.0); BLOOD UREA NITROGEN 37.6 mg/dL (7-18); CALCIUM 8.9 mg/dL (8.5-10.1)
[2020-10-06 12:49] LABS: CREATININE 1.1 mg/dL (0.55-1.3)
[2020-10-06 12:50] LABS: BILIRUBIN,TOTAL 0.2 mg/dL (0.2-1); TOT PROT 6.7 g/dl (6.4-8.2)
[2020-10-06] MEDS ORDERED: INSULIN (NOVOLOG) ASPART 100 UNITS/ML 10ML VIAL ONE ×2 (13:13→16:59)
[2020-10-06 15:36] LABS: ANISOCYTOSIS 1+; MACROCYTOSIS 1+; PLATELET ESTIMATE INCREASED
[2020-10-06] MEDS: SENNOSIDES 8.6MG TABLET (FP) PO SCH (21:48)
[2020-10-06] MEDS: MIRTAZAPINE 15 MG TABLET (FP) PO SCH (21:48)
[2020-10-06] MEDS: INSULIN (LEVEMIR) 100 UNITS/ML UNITS SQ SCH (22:00)
[2020-10-06] MEDS: ATORVASTATIN CA 20 MG TABLET (FP) PO SCH (22:10)
[2020-10-07] MEDS: INSULIN SLIDING SCALE (NOVOLOG) 1 VIAL SQ SCH ×3 (06:01→16:34)
[2020-10-07] MEDS: LEVOTHYROXINE NA 50 MCG TABLET (FP) PO SCH (06:01)
[2020-10-07 08:13] LABS: BASO % 5.6 % (0-2.0); EOS % 2.3 % (0-4.5); HEMOGLOBIN 7.5 GM/dL (10.7-15.3); LYMPH % 28.5 % (8-40); MCH 29.2 pg (25.7-33.7); MCHC 32.7 g/dl (32.0-36.0); MEAN CELL VOLUME 89.3 fl (80-96); MEAN PLT VOLUME 8.3 fl (7.5-11.1); MONO % 10.5 % (3.8-10.2); NEUT % 53.1 % (42.8-82.8); PLATELET COUNT 487 10^3/uL (134-434); RBC 2.57 M/mm3 (3.60-5.2); RDW 21.2 % (11.6-15.6); WHITE BLOOD COUNT 9.2 K/mm3 (4.0-10.0)
[2020-10-07 08:34] LABS: CALCIUM 8.7 mg/dL (8.5-10.1)
[2020-10-07 08:35] LABS: ALBUMIN 1.7 g/dl (3.4-5.0); BLOOD UREA NITROGEN 35.3 mg/dL (7-18)
[2020-10-07] MEDS ORDERED: PT OWN MED DRAWER 7, Y5N ONE ×2 (08:35→09:26)
[2020-10-07] MEDS ORDERED: DEXTROSE 5%-WATER 100 ML IVPB ONE (08:35)
[2020-10-07 08:40] LABS: BILIRUBIN,TOTAL 0.3 mg/dL (0.2-1); TOT PROT 6.6 g/dl (6.4-8.2)
[2020-10-07] MEDS: AMINO ACIDS/PROTEIN HYDROLYS 30 ML LIQUID.PKT PO SCH ×2 (08:42→16:34)
[2020-10-07] MEDS: FERROUS SO4 325 MG TABLET (FP) PO SCH ×2 (08:42→16:34)
[2020-10-07] MEDS: CEFTRIAXONE 2 GM in DEXTROSE 5%-WATER 2 GM/100 ML BAG IVPB SCH (09:22)
[2020-10-07] MEDS: ASCORBIC ACID 500 MG TABLET (FP) PO SCH (09:22)
[2020-10-07] MEDS: FENOFIBRIC ACID 135 MG CAP PO SCH (09:22)
[2020-10-07] MEDS: ATENOLOL 25 MG TABLET (FP) PO SCH (09:22)
[2020-10-07] MEDS: EZETIMIBE 10 MG TABLET (FP) PO SCH (09:22)
[2020-10-07] MEDS: NYSTATIN 100,000 UNIT/GM TOPICAL CREAM 15 GM TUBE TP SCH (09:23)
[2020-10-07] MEDS: COLLAGENASE CLOSTRIDIUM HIST. 30 GRAMS TUBE TP SCH (09:23)
[2020-10-07] MEDS: MINERAL OIL/PET HY-PHL TOPICAL OINTMENT 454 GM JAR TP SCH (09:24)
[2020-10-07] MEDS: MULTIVIT-MINERALS ORAL LIQUID PO SCH (09:27)
[2020-10-07 09:37] LABS: ANISOCYTOSIS 2+; MACROCYTOSIS 0; PLATELET ESTIMATE NORMAL
[2020-10-07 21:57] VITALS: BP 143/58; PULSE 68; TEMP 97.9
== END 2020-10-07 21:57 | DRG 659 ==
LOC: JER 18:54 → JERBED 21:20 → J4W 09-27 19:32 → J8W 10-02 18:14
PROVIDERS: ADMIT Hospitalist; ATTEND Internal Medicine
PROC: 30233N1 Transfusion of Nonautologous Red Blood Cells into Peripheral Vein, Percutaneous Approach (ICD-10-PCS; 2020-09-27)
PROC: 0T9130Z Drainage of Left Kidney with Drainage Device, Percutaneous Approach (ICD-10-PCS; principal; 2020-09-29)
PROC: 0T778DZ Dilation of Left Ureter with Intraluminal Device, Via Natural or Artificial Opening Endoscopic (ICD-10-PCS; 2020-10-05)
PROC: 0TJB8ZZ Inspection of Bladder, Via Natural or Artificial Opening Endoscopic (ICD-10-PCS; 2020-10-05)
PROC: BT02ZZZ Plain Radiography of Left Kidney (ICD-10-PCS; 2020-10-05)
PROC: BT02ZZZ Plain Radiography of Left Kidney (ICD-10-PCS; 2020-10-06)
DX: N17.9 Acute kidney failure, unspecified (principal); L89.153 Pressure ulcer of sacral region, stage 3; R53.2 Functional quadriplegia; J90 Pleural effusion, not elsewhere classified; J98.11 Atelectasis; L97.528 Non-pressure chronic ulcer of other part of left foot with other specified severity; I13.0 Hypertensive heart and chronic kidney disease with heart failure and stage 1 through stage 4 chronic kidney disease, or unspecified chronic kidney disease; K21.9 Gastro-esophageal reflux disease without esophagitis; E78.5 Hyperlipidemia, unspecified; F03.90 Unspecified dementia, unspecified severity, without behavioral disturbance, psychotic disturbance, mood disturbance, and anxiety; D64.9 Anemia, unspecified; R32 Unspecified urinary incontinence; R91.8 Other nonspecific abnormal finding of lung field; M54.9 Dorsalgia, unspecified; E03.9 Hypothyroidism, unspecified; I25.2 Old myocardial infarction; D72.829 Elevated white blood cell count, unspecified; N13.6 Pyonephrosis; I48.91 Unspecified atrial fibrillation; F32.9 Major depressive disorder, single episode, unspecified; E11.621 Type 2 diabetes mellitus with foot ulcer; E11.22 Type 2 diabetes mellitus with diabetic chronic kidney disease; N18.9 Chronic kidney disease, unspecified; I50.9 Heart failure, unspecified; Z86.718 Personal history of other venous thrombosis and embolism; Z96.641 Presence of right artificial hip joint
CPT/HCPCS: 36415; 36430; 50431; 50432; 50693; 71045-TC-FY; 74176-TC; 74425-TC-FY; 80048; 80053; 81003; 82272; 82803; 82962; 83605; 83735; 84443; 84484; 85025; 85027; 85610; 85730; 86850; 86900; 86901; 86922; 87040; 87070; 87081; 87086; 87102; 87116; 87186; 87205; 87206; 87210; 93005; 93010; 94760; 99291; 99292; C9803; J0131; P9058; U0003; U0005

== ENCOUNTER 2020-10-24 09:58 | Inpatient (IN) | payer OTHER ==
[2020-10-24 11:54] LABS: BASO % 0.1 % (0-2.0); LYMPH % 5.9 % (8-40); MCH 28.9 pg (25.7-33.7); MCHC 32.6 g/dl (32.0-36.0); MEAN CELL VOLUME 88.8 fl (80-96); MEAN PLT VOLUME 8.2 fl (7.5-11.1); MONO % 3.9 % (3.8-10.2); NEUT % 90.1 % (42.8-82.8); PLATELET COUNT 461 10^3/uL (134-434); RBC 2.36 M/mm3 (3.60-5.2); RDW 21.5 % (11.6-15.6); WHITE BLOOD COUNT 15.3 K/mm3 (4.0-10.0)
[2020-10-24 11:56] LABS: HEMOGLOBIN 6.8 GM/dL (10.7-15.3)
[2020-10-24 12:03] LABS: INR 2.82 (0.83-1.09); PROTHROMBIN TIME (PATIENT) 33.1 SEC (9.7-13.0)
[2020-10-24 12:05] LABS: ACTIVATED PTT 30.3 SECONDS (25.2-36.5)
[2020-10-24 12:17] LABS: CALCIUM 8.3 mg/dL (8.5-10.1)
[2020-10-24 12:18] LABS: ALBUMIN 1.6 g/dl (3.4-5.0); BLOOD UREA NITROGEN 103.3 mg/dL (7-18)
[2020-10-24 12:21] LABS: CREATININE 3.6 mg/dL (0.55-1.3)
[2020-10-24 12:23] LABS: BILIRUBIN,TOTAL 0.4 mg/dL (0.2-1); TOT PROT 7.2 g/dl (6.4-8.2)
[2020-10-24 12:27] LABS: LACTIC ACID 2.5 mmol/L (0.4-2.0)
[2020-10-24 12:38] LABS: ANISOCYTOSIS 1+; MACROCYTOSIS 1+; PLATELET ESTIMATE NORMAL
[2020-10-24] MEDS ORDERED: SODIUM CHLORIDE 0.9% 500 ML INFUS.BAG IV ONE (13:26)
[2020-10-24] MEDS ORDERED: ACETAMINOPHEN 1000 MG/100 ML VIAL (NON FORMULARY) IVPB ONE (14:07)
[2020-10-24] MEDS ORDERED: ACETAMINOPHEN INJECTION 100 ML IVPB ONE (15:17)
[2020-10-24 15:44] LABS: EPI CELLS 7 /uL (0-25.1); HYALINE CASTS 2 /uL (0-3.1); URINE APPEARANCE TURBID; URINE BACTERIA >9,000 /uL (0-1359); URINE BILIRUBIN NEGATIVE (NEGATIVE); URINE COLOR ORANGE; URINE GLUCOSE (UA) NEGATIVE (NEGATIVE); URINE KETONE NEGATIVE (NEGATIVE); URINE LEUK ESTERASE 3+ (NEGATIVE); URINE NITRITE NEGATIVE (NEGATIVE); URINE PROTEIN 3+ (NEGATIVE); URINE UROBILINOGEN 0.2 mg/dL (0.2-1.0); URINE WBC 2740 /uL (0-25.8)
[2020-10-24 16:52] LABS: CALCIUM 8.5 mg/dL (8.5-10.1)
[2020-10-24 16:53] LABS: BLOOD UREA NITROGEN 103.2 mg/dL (7-18)
[2020-10-24 16:56] LABS: CREATININE 3.6 mg/dL (0.55-1.3)
[2020-10-24 18:18] LABS: URINE RBC 589.9 /uL (0-23.9); YEAST NONE SEEN (NEGATIVE)
[2020-10-24] MEDS ORDERED: CEFTRIAXONE 1 GM/50 ML BAG ONE (18:41)
[2020-10-24] MEDS ORDERED: ACETAMINOPHEN 1000 MG/100 ML VIAL (NON FORMULARY) IVPB PRN (22:45)
[2020-10-25] MEDS: SODIUM CHLORIDE 1,000 ML IV SCH ×2 (04:00→08:00)
[2020-10-25] MEDS ORDERED: CEFTRIAXONE 1 GM in DEXTROSE 5%-WATER - 50 ML IVPB SCH (10:00)
[2020-10-25] MEDS ORDERED: PIPERACILLIN/TAZOBACTAM 2.25 GM VIAL IVPB ONE ×2 (11:38→17:27)
[2020-10-25] MEDS ORDERED: DEXTROSE 5%-WATER - 50 ML IVPB ONE ×2 (11:38→17:27)
[2020-10-25] MEDS: PIPERACILLIN/TAZOB 2.25 GM 2.25 GM in DEXTROSE 5%-WATER - 50 ML IVPB SCH ×2 (11:55→17:58)
[2020-10-25 11:58] LABS: BASO % 0.1 % (0-2.0); HEMATOCRIT 30.9 % (32.4-45.2); HEMOGLOBIN 10.4 GM/dL (10.7-15.3); LYMPH % 2.7 % (8-40); MCH 28.9 pg (25.7-33.7); MCHC 33.6 g/dl (32.0-36.0); MEAN PLT VOLUME 8.3 fl (7.5-11.1); MONO % 1.5 % (3.8-10.2); NEUT % 95.7 % (42.8-82.8); PLATELET COUNT 427 10^3/uL (134-434); RBC 3.59 M/mm3 (3.60-5.2); WHITE BLOOD COUNT 11.8 K/mm3 (4.0-10.0)
[2020-10-25 12:15] LABS: CHLORIDE 117 mmol/L (98-107); SODIUM 146 mmol/L (136-145)
[2020-10-25] MEDS ORDERED: SODIUM CHLORIDE 0.45% 1,000 ML IV SCH (12:15)
[2020-10-25 12:20] LABS: CALCIUM 8.6 mg/dL (8.5-10.1)
[2020-10-25 12:21] LABS: ALBUMIN 1.6 g/dl (3.4-5.0); ANION GAP 8 MMOL/L (8-16); BLOOD UREA NITROGEN 94.5 mg/dL (7-18); CO2 21 mmol/L (21-32)
[2020-10-25 12:24] LABS: CREATININE 2.9 mg/dL (0.55-1.3); SGOT/AST 34 U/L (15-37); SGPT/ALT 16 U/L (13-61)
[2020-10-25 12:26] LABS: BILIRUBIN,TOTAL 0.6 mg/dL (0.2-1); TOT PROT 6.8 g/dl (6.4-8.2)
[2020-10-25 12:27] LABS: ALK PHOS 100 U/L (45-117)
[2020-10-25 12:28] LABS: GLUCOSE,RANDOM 22 mg/dL (74-106)
[2020-10-25] MEDS ORDERED: DEXTROSE 50%-WATER - 25 GM/50 ML VIAL IVPUSH ONE (12:44)
[2020-10-25] MEDS ORDERED: DEXTROSE 50%-WATER 25 GM/50 ML DISP.SYRIN ONE (12:49)
[2020-10-25] MEDS: DEXTROSE 5%-0.45% SALINE 1,000 ML IV SCH (12:57)
[2020-10-25 12:58] LABS: ANISOCYTOSIS 1+; MACROCYTOSIS 1+; PLATELET ESTIMATE INCREASED
[2020-10-25] MEDS ORDERED: MINERAL OIL ENEMA 133 ML ENEMA PR ONE (13:24)
[2020-10-25] MEDS: POLYETHYLENE GLYCOL (HEALTHYLAX) 3350 17 GM PACKET PO SCH ×2 (14:38→21:39)
[2020-10-25] MEDS ORDERED: DEXTROSE 5%-NORMAL SALINE 1,000 ML IV SCH (15:15)
[2020-10-25] MEDS: COLLAGENASE CLOSTRIDIUM HIST. 30 GRAMS TUBE TP SCH (17:58)
[2020-10-25] MEDS: MINERAL OIL/PET HY-PHL TOPICAL OINTMENT 454 GM JAR TP SCH (17:58)
[2020-10-26] MEDS ORDERED: PIPERACILLIN/TAZOBACTAM 2.25 GM VIAL IVPB ONE ×2 (01:03→09:32)
[2020-10-26] MEDS ORDERED: DEXTROSE 5%-WATER - 50 ML IVPB ONE ×3 (01:03→15:19)
[2020-10-26] MEDS: PIPERACILLIN/TAZOB 2.25 GM 2.25 GM in DEXTROSE 5%-WATER - 50 ML IVPB SCH ×2 (01:29→09:54)
[2020-10-26] MEDS: POLYETHYLENE GLYCOL (HEALTHYLAX) 3350 17 GM PACKET PO SCH ×3 (06:20→21:02)
[2020-10-26 08:50] LABS: CALCIUM 8.1 mg/dL (8.5-10.1)
[2020-10-26 08:51] LABS: ALBUMIN 1.4 g/dl (3.4-5.0); BLOOD UREA NITROGEN 83.2 mg/dL (7-18)
[2020-10-26 08:54] LABS: CREATININE 2.2 mg/dL (0.55-1.3)
[2020-10-26 08:56] LABS: BILIRUBIN,TOTAL 0.4 mg/dL (0.2-1)
[2020-10-26 08:57] LABS: IRON SERUM 29 ug/dL (50-175); TOTAL IRON BINDING CAPACITY 91 ug/dL (250-450)
[2020-10-26] MEDS ORDERED: PT OWN MED DRAWER 7, Y5N ONE (09:32)
[2020-10-26] MEDS: COLLAGENASE CLOSTRIDIUM HIST. 30 GRAMS TUBE TP SCH (09:54)
[2020-10-26] MEDS: MINERAL OIL/PET HY-PHL TOPICAL OINTMENT 454 GM JAR TP SCH (09:55)
[2020-10-26] MEDS: DEXTROSE 5%-0.45% SALINE 1,000 ML IV SCH ×2 (10:49→13:48)
[2020-10-26] MEDS ORDERED: MAGNESIUM CITRATE 300 ML BOTTLE PO PRN (11:16)
[2020-10-26] MEDS ORDERED: INSULIN (NOVOLOG) ASPART 100 UNITS/ML 10ML VIAL ONE ×2 (14:25→17:30)
[2020-10-26] MEDS ORDERED: INSULIN (NOVOLOG) ASPART 100 UNITS/ML 10ML VIAL SQ ONE ×2 (14:30→19:42)
[2020-10-26] MEDS ORDERED: cefTRIAXone SODIUM 1 GM VIAL ONE (15:18)
[2020-10-26] MEDS: CEFTRIAXONE 1 GM in DEXTROSE 5%-WATER - 50 ML IVPB SCH (15:22)
[2020-10-26] MEDS: INSULIN SLIDING SCALE (NOVOLOG) 1 VIAL SQ SCH (17:23)
[2020-10-26 17:29] VITALS: BMI 21.2
[2020-10-26] MEDS ORDERED: MINERAL OIL ENEMA 133 ML ENEMA PR ONE (17:33)
[2020-10-26 20:24] LABS: GLUCOSE,RANDOM 482 mg/dL (74-106)
[2020-10-27] MEDS ORDERED: ACETAMINOPHEN 1000 MG/100 ML VIAL (NON FORMULARY) IVPB ONE (00:27)
[2020-10-27] MEDS: DEXTROSE 5%-0.45% SALINE 1,000 ML IV SCH ×2 (00:50→13:31)
[2020-10-27] MEDS: POLYETHYLENE GLYCOL (HEALTHYLAX) 3350 17 GM PACKET PO SCH ×4 (06:21→21:23)
[2020-10-27] MEDS: INSULIN SLIDING SCALE (NOVOLOG) 1 VIAL SQ SCH ×3 (06:24→16:41)
[2020-10-27 08:16] LABS: BASO % 0.1 % (0-2.0); EOS % 0.3 % (0-4.5); HEMATOCRIT 26.5 % (32.4-45.2); HEMOGLOBIN 8.8 GM/dL (10.7-15.3); MCHC 33.4 g/dl (32.0-36.0); NEUT % 93.6 % (42.8-82.8); PLATELET COUNT 410 10^3/uL (134-434); RBC 3.05 M/mm3 (3.60-5.2); RDW 18.3 % (11.6-15.6); WHITE BLOOD COUNT 15.5 K/mm3 (4.0-10.0)
[2020-10-27 08:40] LABS: ALBUMIN 1.4 g/dl (3.4-5.0); BLOOD UREA NITROGEN 71.3 mg/dL (7-18); CALCIUM 7.9 mg/dL (8.5-10.1)
[2020-10-27 08:43] LABS: CREATININE 1.9 mg/dL (0.55-1.3)
[2020-10-27 08:45] LABS: BILIRUBIN,TOTAL 0.4 mg/dL (0.2-1); TOT PROT 5.9 g/dl (6.4-8.2)
[2020-10-27] MEDS ORDERED: cefTRIAXone SODIUM 1 GM VIAL ONE (09:27)
[2020-10-27] MEDS ORDERED: DEXTROSE 5%-WATER - 50 ML IVPB ONE (09:27)
[2020-10-27] MEDS: CEFTRIAXONE 1 GM in DEXTROSE 5%-WATER - 50 ML IVPB SCH (09:52)
[2020-10-27] MEDS: COLLAGENASE CLOSTRIDIUM HIST. 30 GRAMS TUBE TP SCH (10:01)
[2020-10-27] MEDS: MINERAL OIL/PET HY-PHL TOPICAL OINTMENT 454 GM JAR TP SCH (10:01)
[2020-10-27 10:12] LABS: ANISOCYTOSIS 2+; MACROCYTOSIS 0; PLATELET ESTIMATE NORMAL
[2020-10-27] MEDS: KCL 10 MEQ IVPB 10 MEQ/100 ML INFUS.BAG IVPB SCH ×2 (15:12→17:23)
[2020-10-27] MEDS ORDERED: INSULIN (NOVOLOG) ASPART 100 UNITS/ML 10ML VIAL ONE ×2 (16:35→17:08)
[2020-10-28] MEDS: DEXTROSE 5%-0.45% SALINE 1,000 ML IV SCH (05:16)
[2020-10-28] MEDS: POLYETHYLENE GLYCOL (HEALTHYLAX) 3350 17 GM PACKET PO SCH ×3 (06:49→21:06)
[2020-10-28] MEDS: INSULIN SLIDING SCALE (NOVOLOG) 1 VIAL SQ SCH ×3 (06:49→17:45)
[2020-10-28 09:14] LABS: BASO % 0.1 % (0-2.0); EOS % 0.4 % (0-4.5); HEMATOCRIT 27.9 % (32.4-45.2); HEMOGLOBIN 9.2 GM/dL (10.7-15.3); LYMPH % 5.9 % (8-40); MEAN CELL VOLUME 87.9 fl (80-96); MEAN PLT VOLUME 8.1 fl (7.5-11.1); MONO % 1.9 % (3.8-10.2); NEUT % 91.7 % (42.8-82.8); PLATELET COUNT 384 10^3/uL (134-434); RBC 3.17 M/mm3 (3.60-5.2); RDW 19.2 % (11.6-15.6); WHITE BLOOD COUNT 12.9 K/mm3 (4.0-10.0)
[2020-10-28 09:35] LABS: ALBUMIN 1.3 g/dl (3.4-5.0); BLOOD UREA NITROGEN 48.4 mg/dL (7-18); CALCIUM 7.8 mg/dL (8.5-10.1); CREATININE 1.5 mg/dL (0.55-1.3)
[2020-10-28 09:37] LABS: BILIRUBIN,TOTAL 0.3 mg/dL (0.2-1); TOT PROT 5.7 g/dl (6.4-8.2)
[2020-10-28] MEDS ORDERED: DEXTROSE 5%-WATER - 50 ML IVPB ONE (10:35)
[2020-10-28] MEDS ORDERED: cefTRIAXone SODIUM 1 GM VIAL ONE (10:35)
[2020-10-28] MEDS: CEFTRIAXONE 1 GM in DEXTROSE 5%-WATER - 50 ML IVPB SCH (10:38)
[2020-10-28 10:45] LABS: ANISOCYTOSIS 2+; MACROCYTOSIS 0; PLATELET ESTIMATE NORMAL
[2020-10-28] MEDS: MINERAL OIL/PET HY-PHL TOPICAL OINTMENT 454 GM JAR TP SCH (11:12)
[2020-10-28] MEDS: SODIUM CHLORIDE 0.45% 1,000 ML IV SCH (13:45)
[2020-10-28] MEDS: COLLAGENASE CLOSTRIDIUM HIST. 30 GRAMS TUBE TP SCH (13:46)
[2020-10-28] MEDS ORDERED: PHYTONADIONE 10 MG/1 ML AMP IVPB ONE (17:43)
[2020-10-29] MEDS: SODIUM CHLORIDE 0.45% 1,000 ML IV SCH ×3 (01:38→14:54)
[2020-10-29] MEDS: POLYETHYLENE GLYCOL (HEALTHYLAX) 3350 17 GM PACKET PO SCH ×3 (05:40→21:04)
[2020-10-29] MEDS: INSULIN SLIDING SCALE (NOVOLOG) 1 VIAL SQ SCH ×3 (06:39→16:31)
[2020-10-29 08:46] LABS: BASO % 0.1 % (0-2.0); EOS % 0.7 % (0-4.5); HEMATOCRIT 29.9 % (32.4-45.2); HEMOGLOBIN 9.8 GM/dL (10.7-15.3); LYMPH % 7.4 % (8-40); MCH 28.9 pg (25.7-33.7); MCHC 32.6 g/dl (32.0-36.0); MEAN CELL VOLUME 88.6 fl (80-96); MEAN PLT VOLUME 8.3 fl (7.5-11.1); MONO % 2.3 % (3.8-10.2); NEUT % 89.5 % (42.8-82.8); PLATELET COUNT 481 10^3/uL (134-434); RBC 3.38 M/mm3 (3.60-5.2); RDW 18.9 % (11.6-15.6); RETICULOCYTES 1.72 % (0.5-1.5); WHITE BLOOD COUNT 18.7 K/mm3 (4.0-10.0)
[2020-10-29 08:47] LABS: INR 1.56 (0.83-1.09); PROTHROMBIN TIME (PATIENT) 18.9 SEC (9.7-13.0)
[2020-10-29] MEDS ORDERED: cefTRIAXone SODIUM 1 GM VIAL ONE (08:47)
[2020-10-29] MEDS ORDERED: DEXTROSE 5%-WATER - 50 ML IVPB ONE (08:47)
[2020-10-29] MEDS: COLLAGENASE CLOSTRIDIUM HIST. 30 GRAMS TUBE TP SCH (09:17)
[2020-10-29] MEDS: MINERAL OIL/PET HY-PHL TOPICAL OINTMENT 454 GM JAR TP SCH (09:17)
[2020-10-29] MEDS: PANTOPRAZOLE SODIUM 40 MG VIAL IVPUSH SCH (09:17)
[2020-10-29] MEDS: CEFTRIAXONE 1 GM in DEXTROSE 5%-WATER - 50 ML IVPB SCH (10:36)
[2020-10-29] MEDS: INSULIN (LEVEMIR) 100 UNITS/ML UNITS SQ SCH (21:04)
[2020-10-30] MEDS: SODIUM CHLORIDE 0.45% 1,000 ML IV SCH ×2 (01:07→13:30)
[2020-10-30] MEDS: INSULIN SLIDING SCALE (NOVOLOG) 1 VIAL SQ SCH ×3 (06:19→16:54)
[2020-10-30] MEDS: POLYETHYLENE GLYCOL (HEALTHYLAX) 3350 17 GM PACKET PO SCH ×3 (06:19→21:03)
[2020-10-30 08:19] LABS: INR 1.4 (0.83-1.09); PROTHROMBIN TIME (PATIENT) 16.8 SEC (9.7-13.0)
[2020-10-30 08:20] LABS: BASO % 0.1 % (0-2.0); EOS % 0.4 % (0-4.5); HEMOGLOBIN 9.5 GM/dL (10.7-15.3); LYMPH % 7.7 % (8-40); MCH 29.6 pg (25.7-33.7); MCHC 32.8 g/dl (32.0-36.0); MEAN CELL VOLUME 90.2 fl (80-96); NEUT % 88.8 % (42.8-82.8); PLATELET COUNT 464 10^3/uL (134-434); RBC 3.21 M/mm3 (3.60-5.2); RDW 19.1 % (11.6-15.6); WHITE BLOOD COUNT 15.9 K/mm3 (4.0-10.0)
[2020-10-30 08:35] LABS: ALBUMIN 1.3 g/dl (3.4-5.0); BLOOD UREA NITROGEN 28.6 mg/dL (7-18); CALCIUM 7.7 mg/dL (8.5-10.1)
[2020-10-30 08:38] LABS: CREATININE 0.9 mg/dL (0.55-1.3)
[2020-10-30 08:40] LABS: BILIRUBIN,TOTAL 0.3 mg/dL (0.2-1); TOT PROT 5.4 g/dl (6.4-8.2)
[2020-10-30] MEDS ORDERED: cefTRIAXone SODIUM 1 GM VIAL ONE (09:52)
[2020-10-30] MEDS ORDERED: DEXTROSE 5%-WATER - 50 ML IVPB ONE (09:53)
[2020-10-30] MEDS ORDERED: PHYTONADIONE 10 MG/1 ML AMP IVPB ONE (09:57)
[2020-10-30] MEDS: PANTOPRAZOLE SODIUM 40 MG VIAL IVPUSH SCH (10:03)
[2020-10-30] MEDS: COLLAGENASE CLOSTRIDIUM HIST. 30 GRAMS TUBE TP SCH (10:03)
[2020-10-30] MEDS: MINERAL OIL/PET HY-PHL TOPICAL OINTMENT 454 GM JAR TP SCH (10:03)
[2020-10-30] MEDS: CEFTRIAXONE 1 GM in DEXTROSE 5%-WATER - 50 ML IVPB SCH (11:15)
[2020-10-30] MEDS ORDERED: INSULIN (NOVOLOG) ASPART 100 UNITS/ML 10ML VIAL ONE ×4 (11:48→17:03)
[2020-10-30] MEDS ORDERED: PT OWN MED DRAWER 7, Y5N ONE (13:02)
[2020-10-30] MEDS: POTASSIUM CHLORIDE 10 MEQ in DEXTROSE 5%-WATER - 1,000 ML IV SCH (14:37)
[2020-10-30] MEDS: INSULIN (LEVEMIR) 100 UNITS/ML UNITS SQ SCH (21:03)
[2020-10-31] MEDS: POTASSIUM CHLORIDE 10 MEQ in DEXTROSE 5%-WATER - 1,000 ML IV SCH (05:20)
[2020-10-31] MEDS: INSULIN SLIDING SCALE (NOVOLOG) 1 VIAL SQ SCH ×4 (06:06→18:47)
[2020-10-31 08:25] LABS: ALBUMIN 1.4 g/dl (3.4-5.0); BLOOD UREA NITROGEN 17.3 mg/dL (7-18); CALCIUM 7.5 mg/dL (8.5-10.1)
[2020-10-31 08:28] LABS: CREATININE 0.9 mg/dL (0.55-1.3)
[2020-10-31 08:30] LABS: BILIRUBIN,TOTAL 0.2 mg/dL (0.2-1); TOT PROT 5.7 g/dl (6.4-8.2)
[2020-10-31] MEDS ORDERED: cefTRIAXone SODIUM 1 GM VIAL ONE (09:57)
[2020-10-31] MEDS ORDERED: DEXTROSE 5%-WATER - 50 ML IVPB ONE (09:57)
[2020-10-31] MEDS: CEFTRIAXONE 1 GM in DEXTROSE 5%-WATER - 50 ML IVPB SCH (10:09)
[2020-10-31] MEDS: PANTOPRAZOLE SODIUM 40 MG VIAL IVPUSH SCH (10:10)
[2020-10-31] MEDS: POLYETHYLENE GLYCOL (HEALTHYLAX) 3350 17 GM PACKET PO SCH ×3 (10:18→21:42)
[2020-10-31] MEDS: MINERAL OIL/PET HY-PHL TOPICAL OINTMENT 454 GM JAR TP SCH (10:18)
[2020-10-31] MEDS: COLLAGENASE CLOSTRIDIUM HIST. 30 GRAMS TUBE TP SCH (10:25)
[2020-10-31 13:08] LABS: TRANSGLUTAMINASE IGA < 2 U/mL (0-3); TRANSGLUTAMINASE IGG 3 U/mL (0-5)
[2020-10-31] MEDS ORDERED: D5-1/2NS+10 MEQ KCL - 10 MEQ/1,000 ML INFUS.BAG IV SCH (15:00)
[2020-10-31] MEDS ORDERED: fentaNYL CITRATE 250 MCG/5 ML VIAL ONE (15:28)
[2020-10-31] MEDS ORDERED: IOHEXOL 300 MG/ML INFUS..BTL IV ONE (16:02)
[2020-10-31] MEDS ORDERED: INSULIN (NOVOLOG) ASPART 100 UNITS/ML 10ML VIAL ONE ×2 (18:43→19:42)
[2020-10-31] MEDS: D5-1/2NS+10 MEQ KCL - 10 MEQ/1,000 ML INFUS.BAG IV SCH (18:46)
[2020-10-31] MEDS: INSULIN (LEVEMIR) 100 UNITS/ML UNITS SQ SCH (21:42)
[2020-11-01] MEDS: INSULIN SLIDING SCALE (NOVOLOG) 1 VIAL SQ SCH ×2 (06:10→11:44)
[2020-11-01] MEDS: POLYETHYLENE GLYCOL (HEALTHYLAX) 3350 17 GM PACKET PO SCH (09:00)
[2020-11-01] MEDS ORDERED: DEXTROSE 5%-WATER - 50 ML IVPB ONE (09:03)
[2020-11-01] MEDS ORDERED: cefTRIAXone SODIUM 1 GM VIAL ONE (09:03)
[2020-11-01] MEDS: CEFTRIAXONE 1 GM in DEXTROSE 5%-WATER - 50 ML IVPB SCH (09:07)
[2020-11-01] MEDS: PANTOPRAZOLE SODIUM 40 MG VIAL IVPUSH SCH (09:14)
[2020-11-01 09:23] LABS: BASO % 0.2 % (0-2.0); EOS % 0.4 % (0-4.5); HEMATOCRIT 27.6 % (32.4-45.2); HEMOGLOBIN 9.3 GM/dL (10.7-15.3); LYMPH % 9.5 % (8-40); MCH 29.3 pg (25.7-33.7); MCHC 33.8 g/dl (32.0-36.0); MEAN CELL VOLUME 86.7 fl (80-96); MONO % 4.2 % (3.8-10.2); NEUT % 85.7 % (42.8-82.8); PLATELET COUNT 446 10^3/uL (134-434); RBC 3.19 M/mm3 (3.60-5.2); RDW 18.7 % (11.6-15.6); WHITE BLOOD COUNT 14.8 K/mm3 (4.0-10.0)
[2020-11-01 09:28] LABS: INR 1.34 (0.83-1.09); PROTHROMBIN TIME (PATIENT) 16.1 SEC (9.7-13.0)
[2020-11-01] MEDS: MINERAL OIL/PET HY-PHL TOPICAL OINTMENT 454 GM JAR TP SCH (09:47)
[2020-11-01 09:59] LABS: ALBUMIN 1.3 g/dl (3.4-5.0); BLOOD UREA NITROGEN 13.3 mg/dL (7-18); CALCIUM 7.2 mg/dL (8.5-10.1)
[2020-11-01 10:01] LABS: CREATININE 0.7 mg/dL (0.55-1.3); LIPASE 86 U/L (73-393)
[2020-11-01 10:02] LABS: AMYLASE 15 U/L (25-115)
[2020-11-01 10:06] LABS: BILIRUBIN,TOTAL 0.4 mg/dL (0.2-1)
[2020-11-01] MEDS ORDERED: INSULIN (NOVOLOG) ASPART 100 UNITS/ML 10ML VIAL ONE (11:41)
[2020-11-01 12:08] LABS: SARS-CoV-2 NAA Not Detected (Not Detected)
[2020-11-01] MEDS: D5-1/2NS+10 MEQ KCL - 10 MEQ/1,000 ML INFUS.BAG IV SCH (14:07)
[2020-11-01 15:41] VITALS: BP 132/62; PULSE 74; TEMP 98
== END 2020-11-01 16:02 | disposition short-term general hospital (02) | DRG 444 ==
LOC: JER 09:58 → JERBED 17:38 → J8W 22:25
PROVIDERS: ADMIT Internal Medicine; ATTEND Internal Medicine
PROC: 30233N1 Transfusion of Nonautologous Red Blood Cells into Peripheral Vein, Percutaneous Approach (ICD-10-PCS; 2020-10-24)
PROC: 0F798DZ Dilation of Common Bile Duct with Intraluminal Device, Via Natural or Artificial Opening Endoscopic (ICD-10-PCS; 2020-10-31)
PROC: BF10YZZ Fluoroscopy of Bile Ducts using Other Contrast (ICD-10-PCS; 2020-10-31)
PROC: 0FC98ZZ Extirpation of Matter from Common Bile Duct, Via Natural or Artificial Opening Endoscopic (ICD-10-PCS; principal; 2020-10-31 13:00)
DX: K80.50 Calculus of bile duct without cholangitis or cholecystitis without obstruction (principal); L89.323 Pressure ulcer of left buttock, stage 3; N17.9 Acute kidney failure, unspecified; N39.0 Urinary tract infection, site not specified; I50.32 Chronic diastolic (congestive) heart failure; E87.0 Hyperosmolality and hypernatremia; N13.39 Other hydronephrosis; E46 Unspecified protein-calorie malnutrition; R64 Cachexia; I48.91 Unspecified atrial fibrillation; I10 Essential (primary) hypertension; B96.1 Klebsiella pneumoniae [K. pneumoniae] as the cause of diseases classified elsewhere; E11.9 Type 2 diabetes mellitus without complications; E03.9 Hypothyroidism, unspecified; D64.9 Anemia, unspecified; E87.6 Hypokalemia; K59.00 Constipation, unspecified; R33.9 Retention of urine, unspecified; K57.10 Diverticulosis of small intestine without perforation or abscess without bleeding; Z68.21 Body mass index [BMI] 21.0-21.9, adult; D72.829 Elevated white blood cell count, unspecified; R31.0 Gross hematuria
CPT/HCPCS: 36415; 36430; 71045-TC-FY; 74018-TC-FY; 74176-TC; 76000-TC-FY; 80048; 80053; 81003; 82150; 82272; 82728; 82947; 82962; 83516; 83540; 83550; 83605; 83690; 85025; 85045; 85610; 85730; 86140; 86850; 86900; 86901; 86922; 87040; 87086; 87186; 93306-TC; 99285-25; C9803; J0131; P9058; U0003; U0005

== ENCOUNTER 2020-12-10 11:37 | Inpatient (IN) | payer OTHER ==
[2020-12-10 11:52] VITALS: BMI 19.1
[2020-12-10] MEDS ORDERED: SODIUM CHLORIDE 1,293 ML IV ONE (12:31)
[2020-12-10] MEDS ORDERED: PIPERACILLIN/TAZOB 3.375 GM 3.375 GM in DEXTROSE 5%-WATER - 50 ML IVPB ONE (13:00)
[2020-12-10 13:35] LABS: HEMATOCRIT 29.4 % (32.4-45.2); HEMOGLOBIN 9.6 GM/dL (10.7-15.3); MCH 30.5 pg (25.7-33.7); MCHC 32.5 g/dl (32.0-36.0); MEAN CELL VOLUME 93.8 fl (80-96); MEAN PLT VOLUME 8.6 fl (7.5-11.1); PLATELET COUNT 359 10^3/uL (134-434); RBC 3.13 M/mm3 (3.60-5.2); RDW 18.9 % (11.6-15.6); WHITE BLOOD COUNT 23.4 K/mm3 (4.0-10.0)
[2020-12-10 13:45] LABS: INR 2.14 (0.83-1.09); PROTHROMBIN TIME (PATIENT) 25.7 SEC (9.7-13.0)
[2020-12-10 13:48] LABS: ACTIVATED PTT 30.6 SECONDS (25.2-36.5)
[2020-12-10 13:51] LABS: VENOUS BASE EXCESS -2.2 mmol/L (-2-2); VENOUS O2 SATURATION 35.3 % (70-80); VENOUS PCO2 47.9 mmHg (38-52); VENOUS PH 7.318 (7.310-7.410)
[2020-12-10 13:56] LABS: CALCIUM 9.6 mg/dL (8.5-10.1)
[2020-12-10 14:00] LABS: CREATININE 1.1 mg/dL (0.55-1.3)
[2020-12-10 14:01] LABS: BILIRUBIN,TOTAL 0.5 mg/dL (0.2-1)
[2020-12-10 14:07] LABS: LACTIC ACID 2.6 mmol/L (0.4-2.0)
[2020-12-10] MEDS ORDERED: PIPERACILLIN/TAZOB 3.375 GM 3.375 GM/50 ML BAG IVPB ONE (14:28)
[2020-12-10 14:55] LABS: ANISOCYTOSIS 1+; MACROCYTOSIS 0; PLATELET ESTIMATE NORMAL
[2020-12-10] MEDS ORDERED: VANCOMYCIN 1 GM in D5W (PRE-DOCKED) 1,000 MG/250 ML IVPB ONE (15:01)
[2020-12-10 15:08] LABS: URINE APPEARANCE TURBID; URINE COLOR RED
[2020-12-10 15:09] LABS: URINE BACTERIA TNTC /uL (0-1359); URINE WBC TNTC /uL (0-25.8)
[2020-12-10 15:12] LABS: URINE BILIRUBIN 1+ (NEGATIVE); URINE GLUCOSE (UA) NEGATIVE (NEGATIVE)
[2020-12-10 15:13] LABS: URINE PROTEIN 2+ (NEGATIVE)
[2020-12-10 15:15] LABS: URINE RBC TNTC /uL (0-23.9)
[2020-12-10] MEDS ORDERED: ACETAMINOPHEN 1000 MG/100 ML VIAL (NON FORMULARY) IVPB ONE (15:29)
[2020-12-10] MEDS ORDERED: ACETAMINOPHEN INJECTION 100 ML IVPB ONE (15:56)
[2020-12-10] MEDS ORDERED: VANCOMYCIN 1 GRAM (PRE-DOCKED) 1,000 MG/250 ML BAG IVPB ONE (15:57)
[2020-12-10] MEDS: SODIUM CHLORIDE 1,000 ML IV SCH (18:50)
[2020-12-10] MEDS: INSULIN SLIDING SCALE (NOVOLOG) 1 VIAL SQ SCH (21:35)
[2020-12-10] MEDS: NYSTATIN 100,000 UNIT/GM TOPICAL CREAM 15 GM TUBE TP SCH (23:20)
[2020-12-11] MEDS: INSULIN SLIDING SCALE (NOVOLOG) 1 VIAL SQ SCH ×2 (06:17→17:55)
[2020-12-11] MEDS: LEVOTHYROXINE NA 50 MCG TABLET (FP) PO SCH (06:17)
[2020-12-11 07:08] LABS: HEMATOCRIT 25.6 % (32.4-45.2); HEMOGLOBIN 8.3 GM/dL (10.7-15.3); MCHC 32.5 g/dl (32.0-36.0); MEAN CELL VOLUME 95.3 fl (80-96); MEAN PLT VOLUME 8.6 fl (7.5-11.1); PLATELET COUNT 370 10^3/uL (134-434); RBC 2.69 M/mm3 (3.60-5.2); RDW 19.2 % (11.6-15.6); WHITE BLOOD COUNT 15.3 K/mm3 (4.0-10.0)
[2020-12-11 07:23] LABS: CALCIUM 8.5 mg/dL (8.5-10.1)
[2020-12-11 07:24] LABS: BLOOD UREA NITROGEN 52.6 mg/dL (7-18)
[2020-12-11 07:27] LABS: CREATININE 0.8 mg/dL (0.55-1.3)
[2020-12-11 07:28] LABS: BILIRUBIN,TOTAL 0.3 mg/dL (0.2-1); TOT PROT 6.6 g/dl (6.4-8.2)
[2020-12-11 07:50] LABS: ALBUMIN 1.6 g/dl (3.4-5.0)
[2020-12-11] MEDS: ATENOLOL 25 MG TABLET (FP) PO SCH (10:55)
[2020-12-11] MEDS: APIXABAN 5 MG TABLET PO SCH ×2 (10:55→23:55)
[2020-12-11] MEDS ORDERED: APIXABAN 5 MG TABLET ONE ×2 (11:14→23:51)
[2020-12-11] MEDS ORDERED: ATENOLOL 25 MG TABLET (FP) ONE (11:14)
[2020-12-11] MEDS ORDERED: PIPERACILLIN/TAZOB 3.375 GM 3.375 GM/50 ML BAG IVPB ONE ×2 (13:41→17:59)
[2020-12-11] MEDS: PIPERACILLIN/TAZOB 3.375 GM 3.375 GM in DEXTROSE 5%-WATER - 50 ML IVPB SCH ×2 (14:25→19:02)
[2020-12-11] MEDS: SODIUM CHLORIDE 1,000 ML IV SCH (19:27)
[2020-12-11] MEDS: NYSTATIN 100,000 UNIT/GM TOPICAL CREAM 15 GM TUBE TP SCH (19:43)
[2020-12-11] MEDS: COLLAGENASE CLOSTRIDIUM HIST. 30 GRAMS TUBE TP SCH (19:44)
[2020-12-12] MEDS ORDERED: PIPERACILLIN/TAZOB 3.375 GM 3.375 GM/50 ML BAG IVPB ONE (02:17)
[2020-12-12] MEDS: PIPERACILLIN/TAZOB 3.375 GM 3.375 GM in DEXTROSE 5%-WATER - 50 ML IVPB SCH ×3 (02:25→17:24)
[2020-12-12] MEDS: SODIUM CHLORIDE 1,000 ML IV SCH ×2 (05:17→15:37)
[2020-12-12] MEDS: INSULIN SLIDING SCALE (NOVOLOG) 1 VIAL SQ SCH ×2 (06:40→16:32)
[2020-12-12] MEDS: LEVOTHYROXINE NA 50 MCG TABLET (FP) PO SCH (06:41)
[2020-12-12 06:47] LABS: BASO % 0.1 % (0-2.0); EOS % 0.1 % (0-4.5); HEMATOCRIT 23.7 % (32.4-45.2); HEMOGLOBIN 7.6 GM/dL (10.7-15.3); LYMPH % 6.5 % (8-40); MCH 30.9 pg (25.7-33.7); MCHC 32.2 g/dl (32.0-36.0); MEAN CELL VOLUME 95.8 fl (80-96); MEAN PLT VOLUME 8.1 fl (7.5-11.1); MONO % 4.6 % (3.8-10.2); NEUT % 88.7 % (42.8-82.8); PLATELET COUNT 359 10^3/uL (134-434); RBC 2.47 M/mm3 (3.60-5.2); RDW 19.1 % (11.6-15.6); WHITE BLOOD COUNT 16.9 K/mm3 (4.0-10.0)
[2020-12-12 07:06] LABS: BLOOD UREA NITROGEN 55.4 mg/dL (7-18); CALCIUM 8.4 mg/dL (8.5-10.1)
[2020-12-12 07:07] LABS: ALBUMIN 1.4 g/dl (3.4-5.0)
[2020-12-12 07:10] LABS: CREATININE 1.1 mg/dL (0.55-1.3)
[2020-12-12 07:11] LABS: BILIRUBIN,TOTAL 0.4 mg/dL (0.2-1); TOT PROT 6.2 g/dl (6.4-8.2)
[2020-12-12] MEDS ORDERED: PIPERACILLIN/TAZOBACTAM 3.375 GM VIAL IVPB ONE ×2 (09:18→17:30)
[2020-12-12] MEDS: NYSTATIN 100,000 UNIT/GM TOPICAL CREAM 15 GM TUBE TP SCH ×3 (09:41→23:44)
[2020-12-12] MEDS: ATENOLOL 25 MG TABLET (FP) PO SCH (09:41)
[2020-12-12] MEDS: APIXABAN 5 MG TABLET PO SCH (09:42)
[2020-12-12] MEDS: COLLAGENASE CLOSTRIDIUM HIST. 30 GRAMS TUBE TP SCH (09:49)
[2020-12-12] MEDS: APIXABAN 2.5 MG TABLET PO SCH ×2 (11:25→21:44)
[2020-12-12] MEDS ORDERED: DEXTROSE 5%-WATER - 50 ML IVPB ONE (17:30)
[2020-12-12] MEDS ORDERED: PT OWN MED DRAWER 7, Y5N ONE ×2 (18:41→20:29)
[2020-12-12] MEDS: URSODIOL 300 MG CAPSULE PO SCH (21:44)
[2020-12-13] MEDS ORDERED: PIPERACILLIN/TAZOBACTAM 3.375 GM VIAL IVPB ONE ×4 (01:02→16:38)
[2020-12-13] MEDS ORDERED: DEXTROSE 5%-WATER - 50 ML IVPB ONE ×4 (01:03→16:38)
[2020-12-13] MEDS: PIPERACILLIN/TAZOB 3.375 GM 3.375 GM in DEXTROSE 5%-WATER - 50 ML IVPB SCH ×3 (03:22→17:38)
[2020-12-13] MEDS: SODIUM CHLORIDE 1,000 ML IV SCH ×2 (06:17→16:20)
[2020-12-13] MEDS: LEVOTHYROXINE NA 50 MCG TABLET (FP) PO SCH (06:18)
[2020-12-13] MEDS: INSULIN SLIDING SCALE (NOVOLOG) 1 VIAL SQ SCH ×2 (06:19→17:41)
[2020-12-13] MEDS: COLLAGENASE CLOSTRIDIUM HIST. 30 GRAMS TUBE TP SCH (10:19)
[2020-12-13] MEDS: ATENOLOL 25 MG TABLET (FP) PO SCH (11:31)
[2020-12-13] MEDS: URSODIOL 300 MG CAPSULE PO SCH ×2 (11:31→22:09)
[2020-12-13] MEDS: APIXABAN 2.5 MG TABLET PO SCH ×2 (11:32→22:09)
[2020-12-13] MEDS: NYSTATIN 100,000 UNIT/GM TOPICAL CREAM 15 GM TUBE TP SCH ×2 (11:37→22:10)
[2020-12-13] MEDS: SODIUM CHLORIDE 0.45% 1,000 ML IV SCH (14:20)
[2020-12-13] MEDS ORDERED: PT OWN MED DRAWER 7, Y5N ONE ×2 (14:33→21:25)
[2020-12-14] MEDS ORDERED: DEXTROSE 5%-WATER - 50 ML IVPB ONE ×3 (01:59→17:53)
[2020-12-14] MEDS ORDERED: PIPERACILLIN/TAZOBACTAM 3.375 GM VIAL IVPB ONE ×3 (01:59→17:53)
[2020-12-14] MEDS: PIPERACILLIN/TAZOB 3.375 GM 3.375 GM in DEXTROSE 5%-WATER - 50 ML IVPB SCH ×3 (02:21→20:20)
[2020-12-14] MEDS: LEVOTHYROXINE NA 50 MCG TABLET (FP) PO SCH (06:07)
[2020-12-14] MEDS: INSULIN SLIDING SCALE (NOVOLOG) 1 VIAL SQ SCH ×2 (06:07→18:01)
[2020-12-14 08:22] LABS: BASO % 0.1 % (0-2.0); EOS % 0.2 % (0-4.5); HEMATOCRIT 21.3 % (32.4-45.2); LYMPH % 8.9 % (8-40); MCH 30.7 pg (25.7-33.7); MCHC 32.4 g/dl (32.0-36.0); MEAN CELL VOLUME 94.8 fl (80-96); MEAN PLT VOLUME 8.5 fl (7.5-11.1); MONO % 5.5 % (3.8-10.2); NEUT % 85.3 % (42.8-82.8); PLATELET COUNT 299 10^3/uL (134-434); RBC 2.25 M/mm3 (3.60-5.2); RDW 18.5 % (11.6-15.6); WHITE BLOOD COUNT 16.9 K/mm3 (4.0-10.0)
[2020-12-14 09:21] LABS: ALBUMIN 1.2 g/dl (3.4-5.0)
[2020-12-14 09:22] LABS: BLOOD UREA NITROGEN 38.7 mg/dL (7-18); CALCIUM 8.2 mg/dL (8.5-10.1)
[2020-12-14 09:26] LABS: BILIRUBIN,TOTAL 0.2 mg/dL (0.2-1); CREATININE 1.1 mg/dL (0.55-1.3); TOT PROT 5.7 g/dl (6.4-8.2)
[2020-12-14] MEDS: SODIUM CHLORIDE 0.45% 1,000 ML IV SCH ×2 (09:33→13:45)
[2020-12-14] MEDS: COLLAGENASE CLOSTRIDIUM HIST. 30 GRAMS TUBE TP SCH (10:10)
[2020-12-14] MEDS ORDERED: PHYTONADIONE 5 MG TABLET PO ONE (10:30)
[2020-12-14] MEDS ORDERED: PT OWN MED DRAWER 7, Y5N ONE ×2 (11:01→23:41)
[2020-12-14] MEDS: APIXABAN 2.5 MG TABLET PO SCH ×2 (11:11→23:43)
[2020-12-14] MEDS: ATENOLOL 25 MG TABLET (FP) PO SCH (11:11)
[2020-12-14] MEDS: URSODIOL 300 MG CAPSULE PO SCH ×2 (11:12→23:43)
[2020-12-14] MEDS: NYSTATIN 100,000 UNIT/GM TOPICAL CREAM 15 GM TUBE TP SCH ×2 (11:13→23:54)
[2020-12-14 11:34] LABS: HEMOGLOBIN 6.9 GM/dL (10.7-15.3)
[2020-12-14] MEDS ORDERED: ACETAMINOPHEN 1000 MG/100 ML VIAL (NON FORMULARY) IVPB ONE (21:11)
[2020-12-14 22:31] LABS: HEMATOCRIT 31.7 % (32.4-45.2); HEMOGLOBIN 10.3 GM/dL (10.7-15.3); MCH 30.3 pg (25.7-33.7); MCHC 32.6 g/dl (32.0-36.0); MEAN CELL VOLUME 93.1 fl (80-96); MEAN PLT VOLUME 8.4 fl (7.5-11.1); PLATELET COUNT 342 10^3/uL (134-434); RBC 3.41 M/mm3 (3.60-5.2); RDW 17.3 % (11.6-15.6); WHITE BLOOD COUNT 20.3 K/mm3 (4.0-10.0)
[2020-12-14 23:50] LABS: PLATELET ESTIMATE NORMAL
[2020-12-15 03:11] LABS: PH,URINE 5.5 (5.0-8.0); URINE BILIRUBIN Negative (NEGATIVE); URINE GLUCOSE (UA) Negative (NEGATIVE); URINE KETONE Negative (NEGATIVE); URINE LEUK ESTERASE 1+ (NEGATIVE); URINE NITRITE Negative (NEGATIVE); URINE PROTEIN 3+ (NEGATIVE); URINE UROBILINOGEN 0.2 mg/dL (0.2-1.0)
[2020-12-15 03:12] LABS: URINE APPEARANCE CLOUDY; URINE COLOR BROWN
[2020-12-15 03:16] LABS: EPI CELLS 5 /uL (0-25.1); HYALINE CASTS 5 /uL (0-3.1); URINE BACTERIA 7 /uL (0-1359); URINE WBC 1476 /uL (0-25.8)
[2020-12-15 04:08] LABS: URINE RBC 83501 /uL (0-23.9); YEAST PRESENT (NEGATIVE)
[2020-12-15] MEDS ORDERED: PIPERACILLIN/TAZOBACTAM 3.375 GM VIAL IVPB ONE ×3 (06:25→17:22)
[2020-12-15] MEDS: PIPERACILLIN/TAZOB 3.375 GM 3.375 GM in DEXTROSE 5%-WATER - 50 ML IVPB SCH ×4 (06:35→17:45)
[2020-12-15] MEDS: LEVOTHYROXINE NA 50 MCG TABLET (FP) PO SCH (06:38)
[2020-12-15] MEDS: INSULIN SLIDING SCALE (NOVOLOG) 1 VIAL SQ SCH ×2 (06:38→17:51)
[2020-12-15] MEDS ORDERED: PT OWN MED DRAWER 7, Y5N ONE ×3 (10:00→22:45)
[2020-12-15] MEDS ORDERED: DEXTROSE 5%-WATER - 50 ML IVPB ONE ×2 (12:04→17:22)
[2020-12-15] MEDS: COLLAGENASE CLOSTRIDIUM HIST. 30 GRAMS TUBE TP SCH (12:10)
[2020-12-15] MEDS: APIXABAN 2.5 MG TABLET PO SCH ×2 (12:11→23:14)
[2020-12-15] MEDS: URSODIOL 300 MG CAPSULE PO SCH ×2 (12:11→23:14)
[2020-12-15] MEDS: NYSTATIN 100,000 UNIT/GM TOPICAL CREAM 15 GM TUBE TP SCH ×2 (12:11→23:14)
[2020-12-15] MEDS: ATENOLOL 25 MG TABLET (FP) PO SCH (12:12)
[2020-12-15] MEDS ORDERED: POTASSIUM CHLORIDE TABS 20 MEQ TABLET.ER (FP) PO ONE (13:01)
[2020-12-15] MEDS: SODIUM CHLORIDE 0.45% 1,000 ML IV SCH (14:50)
[2020-12-16] MEDS ORDERED: PIPERACILLIN/TAZOBACTAM 3.375 GM VIAL IVPB ONE ×3 (01:44→17:07)
[2020-12-16] MEDS ORDERED: DEXTROSE 5%-WATER - 50 ML IVPB ONE ×3 (01:45→17:07)
[2020-12-16] MEDS: PIPERACILLIN/TAZOB 3.375 GM 3.375 GM in DEXTROSE 5%-WATER - 50 ML IVPB SCH ×3 (03:05→17:07)
[2020-12-16] MEDS: INSULIN SLIDING SCALE (NOVOLOG) 1 VIAL SQ SCH ×2 (06:52→17:05)
[2020-12-16] MEDS: LEVOTHYROXINE NA 50 MCG TABLET (FP) PO SCH (06:53)
[2020-12-16] MEDS ORDERED: PT OWN MED DRAWER 7, Y5N ONE ×2 (09:20→22:20)
[2020-12-16] MEDS: APIXABAN 2.5 MG TABLET PO SCH ×2 (09:52→22:26)
[2020-12-16] MEDS: URSODIOL 300 MG CAPSULE PO SCH ×2 (09:53→22:26)
[2020-12-16] MEDS: ATENOLOL 25 MG TABLET (FP) PO SCH (09:53)
[2020-12-16] MEDS: COLLAGENASE CLOSTRIDIUM HIST. 30 GRAMS TUBE TP SCH (13:41)
[2020-12-16] MEDS: NYSTATIN 100,000 UNIT/GM TOPICAL CREAM 15 GM TUBE TP SCH ×2 (13:43→22:27)
[2020-12-16] MEDS: SODIUM CHLORIDE 0.45% 1,000 ML IV SCH (17:07)
[2020-12-17] MEDS ORDERED: PIPERACILLIN/TAZOBACTAM 3.375 GM VIAL IVPB ONE ×3 (03:48→17:08)
[2020-12-17] MEDS ORDERED: DEXTROSE 5%-WATER - 50 ML IVPB ONE ×3 (03:48→17:08)
[2020-12-17] MEDS: PIPERACILLIN/TAZOB 3.375 GM 3.375 GM in DEXTROSE 5%-WATER - 50 ML IVPB SCH ×3 (04:18→17:10)
[2020-12-17] MEDS: INSULIN SLIDING SCALE (NOVOLOG) 1 VIAL SQ SCH ×2 (06:09→17:11)
[2020-12-17] MEDS: LEVOTHYROXINE NA 50 MCG TABLET (FP) PO SCH (06:14)
[2020-12-17] MEDS: SODIUM CHLORIDE 0.45% 1,000 ML IV SCH ×2 (07:58→17:01)
[2020-12-17] MEDS ORDERED: PT OWN MED DRAWER 7, Y5N ONE ×2 (10:05→20:46)
[2020-12-17] MEDS: APIXABAN 2.5 MG TABLET PO SCH ×2 (10:07→21:13)
[2020-12-17] MEDS: ATENOLOL 25 MG TABLET (FP) PO SCH (10:07)
[2020-12-17] MEDS: URSODIOL 300 MG CAPSULE PO SCH ×2 (10:08→21:13)
[2020-12-17] MEDS: COLLAGENASE CLOSTRIDIUM HIST. 30 GRAMS TUBE TP SCH (10:09)
[2020-12-17] MEDS: NYSTATIN 100,000 UNIT/GM TOPICAL CREAM 15 GM TUBE TP SCH ×2 (10:09→21:13)
[2020-12-17 11:45] LABS: HEMATOCRIT 25.3 % (32.4-45.2); HEMOGLOBIN 8.6 GM/dL (10.7-15.3); MCH 30.7 pg (25.7-33.7); MEAN CELL VOLUME 90.4 fl (80-96); MEAN PLT VOLUME 8.2 fl (7.5-11.1); PLATELET COUNT 301 10^3/uL (134-434); RDW 17.5 % (11.6-15.6); WHITE BLOOD COUNT 12.6 K/mm3 (4.0-10.0)
[2020-12-17 12:04] LABS: CALCIUM 7.3 mg/dL (8.5-10.1)
[2020-12-17 12:08] LABS: CREATININE 0.7 mg/dL (0.55-1.3)
[2020-12-17 12:09] LABS: BILIRUBIN,TOTAL 0.5 mg/dL (0.2-1); TOT PROT 5.3 g/dl (6.4-8.2)
[2020-12-17 12:15] LABS: ALBUMIN 0.9 g/dl (3.4-5.0); BLOOD UREA NITROGEN 13.4 mg/dL (7-18)
[2020-12-18] MEDS ORDERED: PIPERACILLIN/TAZOBACTAM 3.375 GM VIAL IVPB ONE ×2 (01:43→11:20)
[2020-12-18] MEDS ORDERED: DEXTROSE 5%-WATER - 50 ML IVPB ONE ×2 (01:44→11:20)
[2020-12-18] MEDS: PIPERACILLIN/TAZOB 3.375 GM 3.375 GM in DEXTROSE 5%-WATER - 50 ML IVPB SCH ×2 (02:52→11:22)
[2020-12-18] MEDS: INSULIN SLIDING SCALE (NOVOLOG) 1 VIAL SQ SCH ×2 (06:00→18:18)
[2020-12-18] MEDS: LEVOTHYROXINE NA 50 MCG TABLET (FP) PO SCH (06:46)
[2020-12-18] MEDS: NYSTATIN 100,000 UNIT/GM TOPICAL CREAM 15 GM TUBE TP SCH ×2 (11:23→21:30)
[2020-12-18] MEDS: APIXABAN 2.5 MG TABLET PO SCH ×2 (11:23→21:30)
[2020-12-18] MEDS: ATENOLOL 25 MG TABLET (FP) PO SCH (11:23)
[2020-12-18] MEDS: COLLAGENASE CLOSTRIDIUM HIST. 30 GRAMS TUBE TP SCH (11:23)
[2020-12-18] MEDS ORDERED: PT OWN MED DRAWER 7, Y5N ONE ×2 (11:25→21:27)
[2020-12-18] MEDS: URSODIOL 300 MG CAPSULE PO SCH ×2 (11:25→21:30)
[2020-12-18] MEDS: SODIUM CHLORIDE 0.45% 1,000 ML IV SCH (18:05)
[2020-12-18 21:18] VITALS: BP 143/51; PULSE 52; TEMP 98.6
== END 2020-12-18 23:55 | DRG 698 ==
LOC: JER 11:37 → JERBED 14:08 → J4W 12-12 05:06
PROVIDERS: ADMIT Internal Medicine; ATTEND Internal Medicine
PROC: 30233N1 Transfusion of Nonautologous Red Blood Cells into Peripheral Vein, Percutaneous Approach (ICD-10-PCS; principal; 2020-12-14)
DX: T83.511A Infection and inflammatory reaction due to indwelling urethral catheter, initial encounter (principal); G93.41 Metabolic encephalopathy; R53.2 Functional quadriplegia; A41.51 Sepsis due to Escherichia coli [E. coli]; I24.8 Other forms of acute ischemic heart disease; I50.32 Chronic diastolic (congestive) heart failure; L97.528 Non-pressure chronic ulcer of other part of left foot with other specified severity; L97.518 Non-pressure chronic ulcer of other part of right foot with other specified severity; R64 Cachexia; Z68.1 Body mass index [BMI] 19.9 or less, adult; N39.0 Urinary tract infection, site not specified; E11.621 Type 2 diabetes mellitus with foot ulcer; E03.9 Hypothyroidism, unspecified; I48.91 Unspecified atrial fibrillation; E78.5 Hyperlipidemia, unspecified; I25.2 Old myocardial infarction; K21.9 Gastro-esophageal reflux disease without esophagitis; R41.82 Altered mental status, unspecified; R31.0 Gross hematuria; K80.50 Calculus of bile duct without cholangitis or cholecystitis without obstruction; D72.829 Elevated white blood cell count, unspecified; R50.84 Febrile nonhemolytic transfusion reaction; F03.90 Unspecified dementia, unspecified severity, without behavioral disturbance, psychotic disturbance, mood disturbance, and anxiety; I11.0 Hypertensive heart disease with heart failure; E04.2 Nontoxic multinodular goiter; I25.10 Atherosclerotic heart disease of native coronary artery without angina pectoris; M54.5 Low back pain; B95.2 Enterococcus as the cause of diseases classified elsewhere; B96.5 Pseudomonas (aeruginosa) (mallei) (pseudomallei) as the cause of diseases classified elsewhere; Z86.718 Personal history of other venous thrombosis and embolism; Z96.641 Presence of right artificial hip joint; Y83.8 Other surgical procedures as the cause of abnormal reaction of the patient, or of later complication, without mention of misadventure at the time of the procedure
CPT/HCPCS: 36415; 36430; 71045-TC-FY; 74177-TC; 80053; 81003; 82550; 82803; 82962; 83036; 83605; 84443; 84484; 85025; 85027; 85610; 85730; 86078; 86850; 86900; 86901; 86922; 87040; 87077; 87086; 87186; 93005; 93010; 99285-25; C9803; J0131; P9058; Q9967; U0003; U0005

== ENCOUNTER 2020-12-28 13:04 | Inpatient (IN) | payer OTHER ==
[2020-12-28] MEDS ORDERED: DEXTROSE 50%-WATER 25 GM/50 ML DISP.SYRIN ONE (13:23)
[2020-12-28 14:39] LABS: HEMATOCRIT 31.3 % (32.4-45.2); HEMOGLOBIN 10.3 GM/dL (10.7-15.3); MCH 30.8 pg (25.7-33.7); MCHC 32.9 g/dl (32.0-36.0); MEAN CELL VOLUME 93.6 fl (80-96); MEAN PLT VOLUME 7.9 fl (7.5-11.1); PLATELET COUNT 699 10^3/uL (134-434); RBC 3.34 M/mm3 (3.60-5.2); RDW 17.2 % (11.6-15.6); WHITE BLOOD COUNT 7.5 K/mm3 (4.0-10.0)
[2020-12-28 15:05] LABS: ANISOCYTOSIS 0; HELMET CELLS 0; HOWELL-JOLLY BODIES 0; MACROCYTOSIS 0; OVALOCYTE 0; PLATELET ESTIMATE INCREASED; ROULEAU 0; SICKELED CELLS 0; TARGET CELLS 0; TEAR DROP CELLS 0; TOXIC GRANULATION 0
[2020-12-28 15:06] LABS: BILIRUBIN,TOTAL 0.2 mg/dL (0.2-1)
[2020-12-28 15:07] LABS: LACTIC ACID 2.7 mmol/L (0.4-2.0)
[2020-12-28 15:09] LABS: ALBUMIN 1.5 g/dl (3.4-5.0); CALCIUM 8.9 mg/dL (8.5-10.1); TOT PROT 8.4 g/dl (6.4-8.2)
[2020-12-28] MEDS ORDERED: VANCOMYCIN 1 GM in D5W (PRE-DOCKED) 1,000 MG/250 ML IVPB ONE (16:05)
[2020-12-28] MEDS ORDERED: SODIUM CHLORIDE 0.9% 500 ML INFUS.BAG IV ONE (16:05)
[2020-12-28] MEDS ORDERED: PIPERACILLIN/TAZOB 4.5 GM 4.5 GM in DEXTROSE 5%-WATER 100 ML IVPB ONE (16:06)
[2020-12-28] MEDS ORDERED: VANCOMYCIN 1 GRAM (PRE-DOCKED) 1,000 MG/250 ML BAG IVPB ONE (16:18)
[2020-12-28] MEDS ORDERED: PIPERACILLIN/TAZOB 4.5 GM 4.5 GM/100 ML BAG IVPB ONE (16:18)
[2020-12-28 20:31] LABS: EPI CELLS 7 /uL (0-25.1); HYALINE CASTS 172 /uL (0-3.1); PH,URINE 7.5 (5.0-8.0); URINE APPEARANCE TURBID; URINE BACTERIA >9,000 /uL (0-1359); URINE BILIRUBIN NEGATIVE (NEGATIVE); URINE COLOR YELLOW; URINE GLUCOSE (UA) NEGATIVE (NEGATIVE); URINE KETONE NEGATIVE (NEGATIVE); URINE LEUK ESTERASE 3+ (NEGATIVE); URINE NITRITE NEGATIVE (NEGATIVE); URINE PROTEIN 3+ (NEGATIVE); URINE RBC 16 /uL (0-23.9); URINE UROBILINOGEN 0.2 mg/dL (0.2-1.0); URINE WBC 876 /uL (0-25.8)
[2020-12-29] MEDS ORDERED: DEXTROSE 50%-WATER 25 GM/50 ML DISP.SYRIN ONE ×2 (05:25→18:36)
[2020-12-29] MEDS ORDERED: DEXTROSE 50%-WATER - 25 GM/50 ML VIAL IVPUSH ONE (05:25)
[2020-12-29] MEDS ORDERED: DEXTROSE 10%-WATER - 1,000 ML IV SCH (05:30)
[2020-12-29] MEDS: DEXTROSE 5%-0.45% SALINE 1,000 ML IV SCH ×2 (05:35→21:15)
[2020-12-29] MEDS ORDERED: VANCOMYCIN 1,000 MG in DEXTROSE 5%-WATER - 250 ML IVPB SCH (06:30)
[2020-12-29] MEDS ORDERED: VANCOMYCIN 1 GRAM (PRE-DOCKED) 1,000 MG/250 ML BAG IVPB SCH (06:45)
[2020-12-29] MEDS ORDERED: VANCOMYCIN 1 GRAM (PRE-DOCKED) 1,000 MG/250 ML BAG IVPB ONE (08:04)
[2020-12-29] MEDS: PIPERACILLIN/TAZOB 4.5 GM 4.5 GM in DEXTROSE 5%-WATER 100 ML IVPB SCH ×2 (10:45→15:46)
[2020-12-29 14:01] LABS: BASO % 0.8 % (0-2.0); EOS % 0.6 % (0-4.5); HEMATOCRIT 21.5 % (32.4-45.2); HEMOGLOBIN 7.4 GM/dL (10.7-15.3); LYMPH % 26.4 % (8-40); MCH 32.2 pg (25.7-33.7); MCHC 34.6 g/dl (32.0-36.0); MEAN CELL VOLUME 93.2 fl (80-96); MEAN PLT VOLUME 6.9 fl (7.5-11.1); MONO % 7.8 % (3.8-10.2); NEUT % 64.4 % (42.8-82.8); PLATELET COUNT 676 10^3/uL (134-434); RBC 2.31 M/mm3 (3.60-5.2); RDW 17.1 % (11.6-15.6); WHITE BLOOD COUNT 5.7 K/mm3 (4.0-10.0)
[2020-12-29 14:27] LABS: BLOOD UREA NITROGEN 23.7 mg/dL (7-18); CALCIUM 7.8 mg/dL (8.5-10.1)
[2020-12-29 14:30] LABS: CREATININE 0.8 mg/dL (0.55-1.3)
[2020-12-29 14:31] LABS: BILIRUBIN,TOTAL 0.3 mg/dL (0.2-1)
[2020-12-29 14:36] LABS: ALBUMIN 1.1 g/dl (3.4-5.0)
[2020-12-29] MEDS ORDERED: FERROUS SO4 325 MG TABLET (FP) ONE (18:15)
[2020-12-29] MEDS: FERROUS SO4 325 MG TABLET (FP) PO SCH (18:25)
[2020-12-29] MEDS ORDERED: PT OWN MED DRAWER 7, Y5N ONE (23:15)
[2020-12-29] MEDS: SENNOSIDES 8.6MG TABLET (FP) PO SCH (23:27)
[2020-12-29] MEDS: MIRTAZAPINE 15 MG TABLET (FP) PO SCH (23:27)
[2020-12-29] MEDS: URSODIOL 300 MG CAPSULE PO SCH (23:28)
[2020-12-29] MEDS: APIXABAN 2.5 MG TABLET PO SCH (23:28)
[2020-12-30] MEDS: LEVOTHYROXINE NA 50 MCG TABLET (FP) PO SCH (06:48)
[2020-12-30] MEDS: MULTIVITAMINS THER W-MINERALS COMBO TABLET (FP) PO SCH (09:45)
[2020-12-30] MEDS: FERROUS SO4 325 MG TABLET (FP) PO SCH ×2 (09:45→17:34)
[2020-12-30] MEDS: APIXABAN 2.5 MG TABLET PO SCH ×2 (09:45→21:27)
[2020-12-30] MEDS: ATENOLOL 25 MG TABLET (FP) PO SCH (09:45)
[2020-12-30] MEDS: FENOFIBRIC ACID 135 MG CAP PO SCH (09:45)
[2020-12-30] MEDS: URSODIOL 300 MG CAPSULE PO SCH ×2 (09:46→21:45)
[2020-12-30] MEDS: DEXTROSE 5%-0.45% SALINE 1,000 ML IV SCH ×2 (11:40→21:29)
[2020-12-30 17:29] LABS: EOS % 2.1 % (0-4.5); HEMATOCRIT 23.8 % (32.4-45.2); HEMOGLOBIN 7.8 GM/dL (10.7-15.3); LYMPH % 31.2 % (8-40); MCH 31.5 pg (25.7-33.7); MCHC 32.7 g/dl (32.0-36.0); MEAN CELL VOLUME 96.3 fl (80-96); MEAN PLT VOLUME 6.7 fl (7.5-11.1); MONO % 7.6 % (3.8-10.2); NEUT % 58.1 % (42.8-82.8); PLATELET COUNT 805 10^3/uL (134-434); RBC 2.48 M/mm3 (3.60-5.2); RDW 17.7 % (11.6-15.6)
[2020-12-30] MEDS: AMINO ACIDS/PROTEIN HYDROLYS 30 ML LIQUID.PKT PO SCH (17:34)
[2020-12-30 19:07] LABS: BLOOD UREA NITROGEN 18.8 mg/dL (7-18)
[2020-12-30 19:08] LABS: CALCIUM 8.3 mg/dL (8.5-10.1); CREATININE 0.7 mg/dL (0.55-1.3)
[2020-12-30] MEDS ORDERED: VANCOMYCIN 1 GRAM (PRE-DOCKED) 1,000 MG/250 ML BAG IVPB ONE (19:36)
[2020-12-30] MEDS: ERTAPENEM SODIUM 1 GM in SODIUM CHLORIDE 50 ML IVPB SCH (20:38)
[2020-12-30] MEDS: MIRTAZAPINE 15 MG TABLET (FP) PO SCH (21:27)
[2020-12-30] MEDS: SENNOSIDES 8.6MG TABLET (FP) PO SCH (21:28)
[2020-12-30] MEDS: NYSTATIN/TRIAMCINOLONE TOPICAL CREAM 15 GM TUBE TP SCH (21:44)
[2020-12-31] MEDS: DEXTROSE 5%-0.45% SALINE 1,000 ML IV SCH ×2 (07:30→08:55)
[2020-12-31] MEDS: LEVOTHYROXINE NA 50 MCG TABLET (FP) PO SCH (08:07)
[2020-12-31] MEDS: FERROUS SO4 325 MG TABLET (FP) PO SCH ×2 (09:00→17:25)
[2020-12-31] MEDS: NYSTATIN/TRIAMCINOLONE TOPICAL CREAM 15 GM TUBE TP SCH ×2 (09:00→23:39)
[2020-12-31] MEDS: MULTIVITAMINS THER W-MINERALS COMBO TABLET (FP) PO SCH (09:00)
[2020-12-31] MEDS: APIXABAN 2.5 MG TABLET PO SCH ×2 (09:00→23:10)
[2020-12-31] MEDS: ATENOLOL 25 MG TABLET (FP) PO SCH (09:00)
[2020-12-31] MEDS: AMINO ACIDS/PROTEIN HYDROLYS 30 ML LIQUID.PKT PO SCH ×2 (09:00→17:25)
[2020-12-31] MEDS: FENOFIBRIC ACID 135 MG CAP PO SCH (09:00)
[2020-12-31] MEDS: URSODIOL 300 MG CAPSULE PO SCH ×2 (09:01→23:50)
[2020-12-31] MEDS ORDERED: PT OWN MED DRAWER 7, Y5N ONE ×2 (10:35→23:21)
[2020-12-31] MEDS: ERTAPENEM SODIUM 1 GM in SODIUM CHLORIDE 50 ML IVPB SCH (10:38)
[2020-12-31 11:26] LABS: EOS % 1.2 % (0-4.5); HEMOGLOBIN 7.8 GM/dL (10.7-15.3); LYMPH % 26.1 % (8-40); MCH 31.4 pg (25.7-33.7); MCHC 31.1 g/dl (32.0-36.0); MEAN PLT VOLUME 7.7 fl (7.5-11.1); MONO % 5.9 % (3.8-10.2); NEUT % 65.8 % (42.8-82.8); PLATELET COUNT 681 10^3/uL (134-434); RBC 2.48 M/mm3 (3.60-5.2); RDW 18.2 % (11.6-15.6); WHITE BLOOD COUNT 5.7 K/mm3 (4.0-10.0)
[2020-12-31 11:44] LABS: CHLORIDE 106 mmol/L (98-107); SODIUM 132 mmol/L (136-145)
[2020-12-31 11:46] LABS: CALCIUM 7.1 mg/dL (8.5-10.1)
[2020-12-31 11:47] LABS: ANION GAP 6 MMOL/L (8-16); BLOOD UREA NITROGEN 12.2 mg/dL (7-18); CO2 21 mmol/L (21-32)
[2020-12-31 11:50] LABS: CREATININE 0.8 mg/dL (0.55-1.3)
[2020-12-31] MEDS: INSULIN SLIDING SCALE (NOVOLOG) 1 VIAL SQ SCH ×2 (17:23→23:39)
[2020-12-31] MEDS: SENNOSIDES 8.6MG TABLET (FP) PO SCH (23:10)
[2020-12-31] MEDS: MIRTAZAPINE 15 MG TABLET (FP) PO SCH (23:40)
[2021-01-01] MEDS: DEXTROSE 5%-0.45% SALINE 1,000 ML IV SCH (06:31)
[2021-01-01] MEDS: INSULIN SLIDING SCALE (NOVOLOG) 1 VIAL SQ SCH ×4 (06:32→21:56)
[2021-01-01] MEDS: LEVOTHYROXINE NA 50 MCG TABLET (FP) PO SCH (06:34)
[2021-01-01] MEDS ORDERED: PT OWN MED DRAWER 7, Y5N ONE ×3 (11:10→21:48)
[2021-01-01] MEDS: ERTAPENEM SODIUM 1 GM in SODIUM CHLORIDE 50 ML IVPB SCH (11:13)
[2021-01-01] MEDS: AMINO ACIDS/PROTEIN HYDROLYS 30 ML LIQUID.PKT PO SCH ×2 (11:13→17:33)
[2021-01-01] MEDS: MULTIVITAMINS THER W-MINERALS COMBO TABLET (FP) PO SCH (11:14)
[2021-01-01] MEDS: URSODIOL 300 MG CAPSULE PO SCH ×2 (11:14→21:56)
[2021-01-01] MEDS: FENOFIBRIC ACID 135 MG CAP PO SCH (11:14)
[2021-01-01] MEDS: ATENOLOL 25 MG TABLET (FP) PO SCH (11:14)
[2021-01-01] MEDS: APIXABAN 2.5 MG TABLET PO SCH ×2 (11:14→21:54)
[2021-01-01] MEDS: FERROUS SO4 325 MG TABLET (FP) PO SCH ×2 (11:14→17:33)
[2021-01-01] MEDS: NYSTATIN/TRIAMCINOLONE TOPICAL CREAM 15 GM TUBE TP SCH ×2 (11:15→21:56)
[2021-01-01] MEDS ORDERED: DEXTROSE 50%-WATER - 25 GM/50 ML VIAL IVPUSH ONE (17:50)
[2021-01-01] MEDS ORDERED: DEXTROSE 50%-WATER 25 GM/50 ML DISP.SYRIN ONE (18:01)
[2021-01-01] MEDS: MIRTAZAPINE 15 MG TABLET (FP) PO SCH (21:54)
[2021-01-01] MEDS: SENNOSIDES 8.6MG TABLET (FP) PO SCH (21:55)
[2021-01-02] MEDS: LEVOTHYROXINE NA 50 MCG TABLET (FP) PO SCH (06:00)
[2021-01-02] MEDS: INSULIN SLIDING SCALE (NOVOLOG) 1 VIAL SQ SCH ×4 (06:06→21:44)
[2021-01-02 08:28] LABS: EOS % 1.9 % (0-4.5); HEMATOCRIT 27.5 % (32.4-45.2); LYMPH % 27.4 % (8-40); MCH 31.6 pg (25.7-33.7); MCHC 32.8 g/dl (32.0-36.0); MEAN CELL VOLUME 96.2 fl (80-96); MEAN PLT VOLUME 7.2 fl (7.5-11.1); MONO % 6.5 % (3.8-10.2); NEUT % 63.2 % (42.8-82.8); PLATELET COUNT 794 10^3/uL (134-434); RBC 2.86 M/mm3 (3.60-5.2); RDW 17.8 % (11.6-15.6); WHITE BLOOD COUNT 9.3 K/mm3 (4.0-10.0)
[2021-01-02] MEDS ORDERED: PT OWN MED DRAWER 7, Y5N ONE ×3 (08:40→21:52)
[2021-01-02 08:44] LABS: CREATININE 0.7 mg/dL (0.55-1.3)
[2021-01-02 08:45] LABS: BILIRUBIN,TOTAL 0.2 mg/dL (0.2-1); TOT PROT 6.6 g/dl (6.4-8.2)
[2021-01-02 08:55] LABS: ALBUMIN 1.4 g/dl (3.4-5.0); BLOOD UREA NITROGEN 21.4 mg/dL (7-18); CALCIUM 8.8 mg/dL (8.5-10.1)
[2021-01-02] MEDS: AMINO ACIDS/PROTEIN HYDROLYS 30 ML LIQUID.PKT PO SCH ×2 (08:59→17:30)
[2021-01-02] MEDS: FERROUS SO4 325 MG TABLET (FP) PO SCH ×2 (08:59→17:30)
[2021-01-02] MEDS: ATENOLOL 25 MG TABLET (FP) PO SCH (10:06)
[2021-01-02] MEDS: FENOFIBRIC ACID 135 MG CAP PO SCH (10:06)
[2021-01-02] MEDS: APIXABAN 2.5 MG TABLET PO SCH ×2 (10:06→21:44)
[2021-01-02] MEDS: MULTIVITAMINS THER W-MINERALS COMBO TABLET (FP) PO SCH (10:06)
[2021-01-02] MEDS: ERTAPENEM SODIUM 1 GM in SODIUM CHLORIDE 50 ML IVPB SCH (10:07)
[2021-01-02] MEDS: NYSTATIN/TRIAMCINOLONE TOPICAL CREAM 15 GM TUBE TP SCH ×2 (10:07→21:44)
[2021-01-02] MEDS: URSODIOL 300 MG CAPSULE PO SCH ×2 (10:08→21:43)
[2021-01-02] MEDS: COLLAGENASE CLOSTRIDIUM HIST. 30 GRAMS TUBE TP SCH (13:41)
[2021-01-02] MEDS: SENNOSIDES 8.6MG TABLET (FP) PO SCH (21:44)
[2021-01-02] MEDS: MIRTAZAPINE 15 MG TABLET (FP) PO SCH (21:44)
[2021-01-03] MEDS: INSULIN SLIDING SCALE (NOVOLOG) 1 VIAL SQ SCH ×4 (06:22→23:46)
[2021-01-03] MEDS: LEVOTHYROXINE NA 50 MCG TABLET (FP) PO SCH (06:30)
[2021-01-03] MEDS ORDERED: PT OWN MED DRAWER 7, Y5N ONE ×2 (09:42→21:52)
[2021-01-03] MEDS: FERROUS SO4 325 MG TABLET (FP) PO SCH ×2 (09:47→17:36)
[2021-01-03] MEDS: NYSTATIN/TRIAMCINOLONE TOPICAL CREAM 15 GM TUBE TP SCH ×2 (09:48→23:45)
[2021-01-03] MEDS: ATENOLOL 25 MG TABLET (FP) PO SCH (09:48)
[2021-01-03] MEDS: APIXABAN 2.5 MG TABLET PO SCH ×2 (09:48→23:45)
[2021-01-03] MEDS: COLLAGENASE CLOSTRIDIUM HIST. 30 GRAMS TUBE TP SCH (09:48)
[2021-01-03] MEDS: AMINO ACIDS/PROTEIN HYDROLYS 30 ML LIQUID.PKT PO SCH ×2 (09:48→17:28)
[2021-01-03] MEDS: MULTIVITAMINS THER W-MINERALS COMBO TABLET (FP) PO SCH (09:48)
[2021-01-03] MEDS: FENOFIBRIC ACID 135 MG CAP PO SCH (10:05)
[2021-01-03] MEDS: URSODIOL 300 MG CAPSULE PO SCH ×2 (10:05→23:45)
[2021-01-03] MEDS: ERTAPENEM SODIUM 1 GM in SODIUM CHLORIDE 50 ML IVPB SCH (11:26)
[2021-01-03] MEDS ORDERED: INSULIN (NOVOLOG) ASPART 100 UNITS/ML 10ML VIAL ONE ×2 (11:36→12:04)
[2021-01-03] MEDS: SENNOSIDES 8.6MG TABLET (FP) PO SCH (23:46)
[2021-01-03] MEDS: MIRTAZAPINE 15 MG TABLET (FP) PO SCH (23:46)
[2021-01-04] MEDS ORDERED: INSULIN (NOVOLOG) ASPART 100 UNITS/ML 10ML VIAL ONE (05:59)
[2021-01-04] MEDS: INSULIN SLIDING SCALE (NOVOLOG) 1 VIAL SQ SCH ×4 (06:53→21:33)
[2021-01-04] MEDS: LEVOTHYROXINE NA 50 MCG TABLET (FP) PO SCH (06:54)
[2021-01-04] MEDS ORDERED: PT OWN MED DRAWER 7, Y5N ONE ×2 (09:02→21:03)
[2021-01-04] MEDS: MULTIVITAMINS THER W-MINERALS COMBO TABLET (FP) PO SCH (09:06)
[2021-01-04] MEDS: ATENOLOL 25 MG TABLET (FP) PO SCH (09:06)
[2021-01-04] MEDS: FENOFIBRIC ACID 135 MG CAP PO SCH (09:06)
[2021-01-04] MEDS: AMINO ACIDS/PROTEIN HYDROLYS 30 ML LIQUID.PKT PO SCH ×2 (09:06→17:24)
[2021-01-04] MEDS: FERROUS SO4 325 MG TABLET (FP) PO SCH ×2 (09:06→17:23)
[2021-01-04] MEDS: APIXABAN 2.5 MG TABLET PO SCH ×2 (09:06→21:32)
[2021-01-04] MEDS: COLLAGENASE CLOSTRIDIUM HIST. 30 GRAMS TUBE TP SCH (09:07)
[2021-01-04] MEDS: NYSTATIN/TRIAMCINOLONE TOPICAL CREAM 15 GM TUBE TP SCH ×2 (09:07→21:33)
[2021-01-04] MEDS: URSODIOL 300 MG CAPSULE PO SCH ×2 (09:07→21:33)
[2021-01-04] MEDS ORDERED: ERTAPENEM SODIUM 1 GM in SODIUM CHLORIDE 50 ML IVPB SCH (10:00)
[2021-01-04 14:33] VITALS: BMI 21.8
[2021-01-04] MEDS: MIRTAZAPINE 15 MG TABLET (FP) PO SCH (21:32)
[2021-01-04] MEDS: SENNOSIDES 8.6MG TABLET (FP) PO SCH (21:32)
[2021-01-05] MEDS: LEVOTHYROXINE NA 50 MCG TABLET (FP) PO SCH (06:04)
[2021-01-05] MEDS: INSULIN SLIDING SCALE (NOVOLOG) 1 VIAL SQ SCH ×3 (06:31→17:45)
[2021-01-05] MEDS ORDERED: PT OWN MED DRAWER 7, Y5N ONE (10:36)
[2021-01-05] MEDS: AMINO ACIDS/PROTEIN HYDROLYS 30 ML LIQUID.PKT PO SCH ×2 (10:42→17:45)
[2021-01-05] MEDS: FERROUS SO4 325 MG TABLET (FP) PO SCH ×2 (10:42→17:45)
[2021-01-05] MEDS: ATENOLOL 25 MG TABLET (FP) PO SCH (10:42)
[2021-01-05] MEDS: NYSTATIN/TRIAMCINOLONE TOPICAL CREAM 15 GM TUBE TP SCH (10:43)
[2021-01-05] MEDS: APIXABAN 2.5 MG TABLET PO SCH (10:43)
[2021-01-05] MEDS: FENOFIBRIC ACID 135 MG CAP PO SCH (10:43)
[2021-01-05] MEDS: COLLAGENASE CLOSTRIDIUM HIST. 30 GRAMS TUBE TP SCH (10:43)
[2021-01-05] MEDS: URSODIOL 300 MG CAPSULE PO SCH (10:43)
[2021-01-05] MEDS: MULTIVITAMINS THER W-MINERALS COMBO TABLET (FP) PO SCH (10:43)
[2021-01-05 16:32] VITALS: BP 132/54; PULSE 59; TEMP 97.6
== END 2021-01-05 17:41 | DRG 871 ==
LOC: JER 13:04 → JERBED 16:10 → J4W 12-29 20:23 → J8W 01-03 07:54
PROVIDERS: ATTEND Internal Medicine
DX: A41.89 Other specified sepsis (principal); G93.41 Metabolic encephalopathy; R53.2 Functional quadriplegia; I24.8 Other forms of acute ischemic heart disease; I50.32 Chronic diastolic (congestive) heart failure; L97.528 Non-pressure chronic ulcer of other part of left foot with other specified severity; N39.0 Urinary tract infection, site not specified; L97.518 Non-pressure chronic ulcer of other part of right foot with other specified severity; I13.0 Hypertensive heart and chronic kidney disease with heart failure and stage 1 through stage 4 chronic kidney disease, or unspecified chronic kidney disease; N18.30 Chronic kidney disease, stage 3 unspecified; E11.22 Type 2 diabetes mellitus with diabetic chronic kidney disease; I48.0 Paroxysmal atrial fibrillation; E78.5 Hyperlipidemia, unspecified; I25.10 Atherosclerotic heart disease of native coronary artery without angina pectoris; F03.90 Unspecified dementia, unspecified severity, without behavioral disturbance, psychotic disturbance, mood disturbance, and anxiety; E11.621 Type 2 diabetes mellitus with foot ulcer; E03.9 Hypothyroidism, unspecified; K21.9 Gastro-esophageal reflux disease without esophagitis; L89.152 Pressure ulcer of sacral region, stage 2; R68.0 Hypothermia, not associated with low environmental temperature; E11.649 Type 2 diabetes mellitus with hypoglycemia without coma; D64.9 Anemia, unspecified; B96.20 Unspecified Escherichia coli [E. coli] as the cause of diseases classified elsewhere; I25.2 Old myocardial infarction; Z96.0 Presence of urogenital implants; Z79.4 Long term (current) use of insulin; Z86.718 Personal history of other venous thrombosis and embolism
CPT/HCPCS: 36415; 70450-TC; 71045-TC-FY; 80048; 80053; 81003; 82550; 82962; 83605; 84484; 85025; 86850; 86900; 86901; 87040; 87086; 87186; 87804; 93005; 93010; 99291; C9803; U0003; U0005

== ENCOUNTER 2021-04-27 17:25 | Inpatient (IN) | payer OTHER ==
[2021-04-27] MEDS ORDERED: ACETAMINOPHEN 1000 MG/100 ML BAG IVPB ONE (18:06)
[2021-04-27] MEDS ORDERED: SODIUM CHLORIDE 0.9% 500 ML INFUS.BAG IV ONE ×2 (18:07→19:40)
[2021-04-27] MEDS ORDERED: ACETAMINOPHEN INJECTION 100 ML IVPB ONE (18:19)
[2021-04-27] MEDS ORDERED: VANCOMYCIN 1 GM in D5W (PRE-DOCKED) 1,000 MG/250 ML IVPB ONE (18:30)
[2021-04-27] MEDS ORDERED: PIPERACILLIN/TAZOB 4.5 GM 4.5 GM in DEXTROSE 5%-WATER 100 ML IVPB ONE (18:30)
[2021-04-27] MEDS ORDERED: PIPERACILLIN/TAZOB 4.5 GM 4.5 GM/100 ML BAG IVPB ONE (18:50)
[2021-04-27] MEDS ORDERED: VANCOMYCIN 1 GRAM (PRE-DOCKED) 1,000 MG/250 ML BAG IVPB ONE (18:51)
[2021-04-27 19:23] LABS: BASO % 0.3 % (0-2.0); HEMATOCRIT 26.8 % (32.4-45.2); HEMOGLOBIN 8.3 GM/dL (10.7-15.3); MCH 30.3 pg (25.7-33.7); MCHC 30.8 g/dl (32.0-36.0); MEAN CELL VOLUME 98.4 fl (80-96); MEAN PLT VOLUME 10.1 fl (7.5-11.1); MONO % 8.8 % (3.8-10.2); NEUT % 85.9 % (42.8-82.8); PLATELET COUNT 375 10^3/uL (134-434); RBC 2.72 M/mm3 (3.60-5.2); RDW 15.9 % (11.6-15.6); WHITE BLOOD COUNT 18.5 K/mm3 (4.0-10.0)
[2021-04-27 19:26] LABS: EPI CELLS 6 /uL (0-25.1); HYALINE CASTS 1 /uL (0-3.1); URINE APPEARANCE CLOUDY; URINE BACTERIA 96 /uL (0-1359); URINE BILIRUBIN NEGATIVE (NEGATIVE); URINE COLOR YELLOW; URINE GLUCOSE (UA) 3+ (NEGATIVE); URINE KETONE TRACE (NEGATIVE); URINE LEUK ESTERASE 2+ (NEGATIVE); URINE NITRITE NEGATIVE (NEGATIVE); URINE PROTEIN 3+ (NEGATIVE); URINE RBC 67 /uL (0-23.9); URINE WBC 1677 /uL (0-25.8); VENOUS BASE EXCESS -1.2 mmol/L (-2-2); VENOUS O2 SATURATION 65.5 % (70-80); VENOUS PCO2 46.5 mmHg (38-52); VENOUS PH 7.339 (7.310-7.410)
[2021-04-27 19:40] LABS: CHLORIDE 118 mmol/L (98-107); SODIUM 150 mmol/L (136-145)
[2021-04-27] MEDS ORDERED: INSULIN REGULAR HUMAN 100 UNITS/ML *VIAL IVPUSH ONE ×2 (19:40→19:55)
[2021-04-27 19:43] LABS: ALBUMIN 1.5 g/dl (3.4-5.0); CALCIUM 8.7 mg/dL (8.5-10.1)
[2021-04-27 19:44] LABS: ANION GAP 7 MMOL/L (8-16); CO2 24 mmol/L (21-32)
[2021-04-27 19:47] LABS: CREATININE 2.4 mg/dL (0.55-1.3); SGOT/AST 15 U/L (15-37); SGPT/ALT 10 U/L (13-61)
[2021-04-27 19:48] LABS: BILIRUBIN,TOTAL 0.4 mg/dL (0.2-1); TOT PROT 6.6 g/dl (6.4-8.2)
[2021-04-27 19:49] LABS: ALK PHOS 78 U/L (45-117)
[2021-04-27 19:52] LABS: LACTIC ACID 2.8 mmol/L (0.4-2.0)
[2021-04-27 19:53] LABS: BLOOD UREA NITROGEN 107.4 mg/dL (7-18); GLUCOSE,RANDOM 744 mg/dL (74-106)
[2021-04-27] MEDS ORDERED: INSULIN REGULAR HUMAN 100 UNITS/ML *VIAL SQ ONE (19:55)
[2021-04-27 20:47] LABS: ANISOCYTOSIS 1+; MACROCYTOSIS 0; PLATELET ESTIMATE NORMAL
[2021-04-27] MEDS ORDERED: LACTATED RINGERS SOLUTION 1000 ML INFUS.BAG IV ONE (22:16)
[2021-04-27] MEDS ORDERED: RAPID SEQUENCE INTUBATION KIT NR ONE (23:53)
[2021-04-28] MEDS ORDERED: SODIUM CHLORIDE 0.45% 1,000 ML IV SCH ×2 (00:30→05:03)
[2021-04-28] MEDS ORDERED: INSULIN REGULAR 100 UNITS in SODIUM CHLORIDE 99 ML IVPB SCH (00:30)
[2021-04-28] MEDS ORDERED: NOREPINEPHRINE BITARTRATE 16,000 MCG in DEXTROSE 5%-WATER - 16,000 MCG/500 ML INFUS.BAG IVPB SCH (00:30)
[2021-04-28] MEDS ORDERED: MIDAZOLAM IN 0.9 % SOD.CHLORID 100 MG/100 ML PLAST..BAG IVPB SCH (01:15)
[2021-04-28 01:45] LABS: CHLORIDE 120 mmol/L (98-107); SODIUM 149 mmol/L (136-145)
[2021-04-28 01:47] LABS: CALCIUM 7.8 mg/dL (8.5-10.1)
[2021-04-28 01:48] LABS: ALBUMIN 1.4 g/dl (3.4-5.0); ANION GAP 10 MMOL/L (8-16); CO2 20 mmol/L (21-32)
[2021-04-28 01:51] LABS: CREATININE 1.9 mg/dL (0.55-1.3); SGOT/AST 35 U/L (15-37); SGPT/ALT 14 U/L (13-61)
[2021-04-28 01:53] LABS: BILIRUBIN,TOTAL 0.4 mg/dL (0.2-1); TOT PROT 6.1 g/dl (6.4-8.2)
[2021-04-28 01:54] LABS: ALK PHOS 72 U/L (45-117)
[2021-04-28] MEDS ORDERED: PIPERACILLIN/TAZOB 2.25 GM 2.25 GM in DEXTROSE 5%-WATER - 50 ML IVPB SCH (02:00)
[2021-04-28] MEDS: FENTANYL NS IVPB 500 MCG/100 ML BAG IVPB SCH ×2 (02:00→13:51)
[2021-04-28 02:03] LABS: GLUCOSE,RANDOM 494 mg/dL (74-106)
[2021-04-28] MEDS ORDERED: MIDAZOLAM IN 0.9 % SOD.CHLORID 1 MG/1 ML PLAST..BAG ONE (02:05)
[2021-04-28] MEDS ORDERED: SODIUM CHLORIDE 0.45% 1,000 ML with POTASSIUM CHLORIDE 20 MEQ IV SCH ×2 (02:17→02:27)
[2021-04-28 02:19] LABS: LACTIC ACID 5.6 mmol/L (0.4-2.0)
[2021-04-28] MEDS ORDERED: FENTANYL NS IVPB 500 MCG/100 ML BAG IVPB ONE (03:03)
[2021-04-28] MEDS ORDERED: PIPERACILLIN/TAZOB 2.25 GM 2.25 GM/50 ML BAG IVPB ONE (03:03)
[2021-04-28 04:25] LABS: CHLORIDE 122 mmol/L (98-107); SODIUM 148 mmol/L (136-145)
[2021-04-28 04:26] LABS: CALCIUM 7.3 mg/dL (8.5-10.1)
[2021-04-28 04:27] LABS: BLOOD UREA NITROGEN 92.8 mg/dL (7-18); CO2 21 mmol/L (21-32)
[2021-04-28 04:30] LABS: CREATININE 1.8 mg/dL (0.55-1.3)
[2021-04-28 04:42] LABS: ANION GAP 5 MMOL/L (8-16); GLUCOSE,RANDOM 420 mg/dL (74-106); LACTIC ACID 3.6 mmol/L (0.4-2.0)
[2021-04-28] MEDS ORDERED: HEPARIN NA (PORCINE) 5,000 UNITS/ML 1ML VIAL SQ SCH (06:00)
[2021-04-28] MEDS ORDERED: VASOPRESSIN 20 UNITS/ML VIAL IV ONE (06:38)
[2021-04-28] MEDS: VASOPRESSIN 40 UNITS/100 ML BAG IV SCH ×3 (08:01→22:48)
[2021-04-28 08:09] LABS: HEMATOCRIT 24.9 % (32.4-45.2); HEMOGLOBIN 7.7 GM/dL (10.7-15.3); MCH 30.7 pg (25.7-33.7); MCHC 30.9 g/dl (32.0-36.0); MEAN CELL VOLUME 99.2 fl (80-96); MEAN PLT VOLUME 9.7 fl (7.5-11.1); PLATELET COUNT 295 10^3/uL (134-434); RBC 2.51 M/mm3 (3.60-5.2); RDW 15.2 % (11.6-15.6); WHITE BLOOD COUNT 15.7 K/mm3 (4.0-10.0)
[2021-04-28 08:50] LABS: LACTIC ACID 2.5 mmol/L (0.4-2.0)
[2021-04-28] MEDS ORDERED: MEROPENEM 1 GM VIAL (RESTRICTED TO ID) IVPB ONE ×2 (09:14→21:23)
[2021-04-28] MEDS ORDERED: DEXTROSE 5%-WATER 100 ML IVPB ONE ×2 (09:15→21:24)
[2021-04-28 09:19] LABS: ALBUMIN 1.1 g/dl (3.4-5.0); BILIRUBIN,TOTAL 0.3 mg/dL (0.2-1); BLOOD UREA NITROGEN 91.8 mg/dL (7-18); CALCIUM 7.2 mg/dL (8.5-10.1); CREATININE 1.7 mg/dL (0.55-1.3); MAGNESIUM 2.1 mg/dL (1.8-2.4); PHOSPHOROUS 2.6 mg/dL (2.5-4.9); TOT PROT 5.2 g/dl (6.4-8.2)
[2021-04-28] MEDS: MEROPENEM 1 GM in DEXTROSE 5%-WATER 100 ML IVPB SCH ×2 (09:32→21:58)
[2021-04-28] MEDS: APIXABAN 2.5 MG TABLET PO SCH ×2 (09:33→22:47)
[2021-04-28] MEDS: MUPIROCIN 2% TOPICAL OINTMENT FOR DECOLONIZATION NS SCH ×2 (09:33→21:57)
[2021-04-28] MEDS: LEVOTHYROXINE NA 50 MCG TABLET (FP) PO SCH (09:33)
[2021-04-28 09:49] LABS: ANISOCYTOSIS 1+; MACROCYTOSIS 0; PLATELET ESTIMATE NORMAL
[2021-04-28] MEDS ORDERED: VANCOMYCIN 1 GM in D5W (PRE-DOCKED) 1,000 MG/250 ML IVPB SCH (10:00)
[2021-04-28] MEDS ORDERED: DEXTROSE 5%-WATER - 1,000 ML IV SCH (10:45)
[2021-04-28] MEDS ORDERED: LACTATED RINGERS SOLUTION 1,000 ML/1,000 ML INFUS.BAG IV STA ×2 (11:06→17:56)
[2021-04-28] MEDS ORDERED: DEXTROSE 5%-LACTATED RINGERS 1,000 ML IV SCH (11:45)
[2021-04-28 11:56] LABS: HEMATOCRIT 24.4 % (32.4-45.2); HEMOGLOBIN 7.5 GM/dL (10.7-15.3); MCH 30.2 pg (25.7-33.7); MCHC 30.8 g/dl (32.0-36.0); MEAN CELL VOLUME 98.1 fl (80-96); MEAN PLT VOLUME 9.1 fl (7.5-11.1); PLATELET COUNT 261 10^3/uL (134-434); RBC 2.49 M/mm3 (3.60-5.2); RDW 15.3 % (11.6-15.6); WHITE BLOOD COUNT 13.8 K/mm3 (4.0-10.0)
[2021-04-28 12:28] LABS: CALCIUM 7.3 mg/dL (8.5-10.1)
[2021-04-28 12:29] LABS: BLOOD UREA NITROGEN 88.1 mg/dL (7-18)
[2021-04-28 12:32] LABS: CREATININE 1.5 mg/dL (0.55-1.3)
[2021-04-28 16:39] LABS: BLOOD UREA NITROGEN 73.4 mg/dL (7-18); CALCIUM 7.4 mg/dL (8.5-10.1); CREATININE 1.3 mg/dL (0.55-1.3)
[2021-04-28] MEDS ORDERED: VANCOMYCIN 500 MG in DEXTROSE 5%-WATER 100 ML IVPB SCH (18:00)
[2021-04-28] MEDS: NOREPINEPHRINE BITARTRATE 16,000 MCG in SODIUM CHLORIDE 484 ML IV SCH (18:56)
[2021-04-28] MEDS ORDERED: INSULIN (NOVOLOG) ASPART 100 UNITS/ML 10ML VIAL SQ SCH ×2 (19:30→20:00)
[2021-04-28] MEDS ORDERED: INSULIN (LEVEMIR) 100 UNITS/ML UNITS SQ SCH ×3 (19:30→20:00)
[2021-04-28 19:48] LABS: CALCIUM 7.4 mg/dL (8.5-10.1)
[2021-04-28 19:49] LABS: BLOOD UREA NITROGEN 70.9 mg/dL (7-18)
[2021-04-28 19:52] LABS: CREATININE 1.3 mg/dL (0.55-1.3)
[2021-04-28] MEDS ORDERED: LACTATED RINGERS SOLUTION 1,000 ML/1,000 ML INFUS.BAG IV SCH (20:00)
[2021-04-28] MEDS: INSULIN (LEVEMIR) 100 UNITS/ML UNITS SQ SCH (20:16)
[2021-04-28] MEDS ORDERED: MIDAZOLAM 100 MG/100 ML MG IVPB SCH (20:57)
[2021-04-28] MEDS ORDERED: VASOPRESSIN 40 UNITS in SODIUM CHLORIDE 40 UNITS/100 ML INFUS.BAG IVPB SCH (21:23)
[2021-04-28] MEDS: OXYMETAZOLINE 0.05% NASAL SOLUTION 15 ML BOTTLE NS SCH (21:57)
[2021-04-28] MEDS: CHLORHEXIDINE GLUCONATE 4% CLEANSER FOR DECOLONIZATION TP SCH (21:58)
[2021-04-28] MEDS: FLUTICASONE PROP 0.05% 16 GM NASAL SPRAY NS SCH (21:58)
[2021-04-28 23:12] LABS: CALCIUM 7.2 mg/dL (8.5-10.1)
[2021-04-28 23:13] LABS: BLOOD UREA NITROGEN 69.1 mg/dL (7-18)
[2021-04-28 23:16] LABS: CREATININE 1.2 mg/dL (0.55-1.3)
[2021-04-29] MEDS: FENTANYL NS IVPB 500 MCG/100 ML BAG IVPB SCH ×2 (01:00→14:01)
[2021-04-29] MEDS: LEVOTHYROXINE NA 50 MCG TABLET (FP) PO SCH (06:18)
[2021-04-29] MEDS: INSULIN SLIDING SCALE (NOVOLOG) 1 VIAL SQ SCH ×3 (06:18→16:40)
[2021-04-29 06:45] LABS: HEMATOCRIT 25.2 % (32.4-45.2); MCH 30.7 pg (25.7-33.7); MCHC 31.7 g/dl (32.0-36.0); MEAN PLT VOLUME 9.2 fl (7.5-11.1); PLATELET COUNT 276 10^3/uL (134-434); RDW 14.7 % (11.6-15.6); WHITE BLOOD COUNT 19.5 K/mm3 (4.0-10.0)
[2021-04-29 06:53] LABS: CALCIUM 7.3 mg/dL (8.5-10.1)
[2021-04-29 06:54] LABS: ALBUMIN 1.1 g/dl (3.4-5.0); BLOOD UREA NITROGEN 60.8 mg/dL (7-18); MAGNESIUM 1.9 mg/dL (1.8-2.4)
[2021-04-29 06:57] LABS: CREATININE 1.2 mg/dL (0.55-1.3); PHOSPHOROUS 2.1 mg/dL (2.5-4.9)
[2021-04-29 06:58] LABS: BILIRUBIN,TOTAL 0.3 mg/dL (0.2-1)
[2021-04-29] MEDS: DEXTROSE 5%-WATER - 1,000 ML IV SCH (09:00)
[2021-04-29 09:13] LABS: ANISOCYTOSIS 1+; MACROCYTOSIS 1+; PLATELET ESTIMATE NORMAL
[2021-04-29] MEDS ORDERED: MEROPENEM 1 GM VIAL (RESTRICTED TO ID) IVPB ONE ×2 (09:49→21:03)
[2021-04-29] MEDS ORDERED: DEXTROSE 5%-WATER 100 ML IVPB ONE ×2 (09:50→21:03)
[2021-04-29] MEDS: OXYMETAZOLINE 0.05% NASAL SOLUTION 15 ML BOTTLE NS SCH ×2 (09:54→21:26)
[2021-04-29] MEDS: FLUTICASONE PROP 0.05% 16 GM NASAL SPRAY NS SCH ×2 (09:54→21:27)
[2021-04-29] MEDS: APIXABAN 2.5 MG TABLET PO SCH ×2 (09:58→21:26)
[2021-04-29] MEDS: MEROPENEM 1 GM in DEXTROSE 5%-WATER 100 ML IVPB SCH ×2 (09:58→21:26)
[2021-04-29] MEDS: MUPIROCIN 2% TOPICAL OINTMENT FOR DECOLONIZATION NS SCH ×2 (09:59→21:26)
[2021-04-29] MEDS ORDERED: POTASSIUM PHOSPHATE 30 MM in SODIUM CHLORIDE 250 ML IVPB ONE (10:00)
[2021-04-29] MEDS: INSULIN (LEVEMIR) 100 UNITS/ML UNITS SQ SCH (10:17)
[2021-04-29 13:10] LABS: BLOOD UREA NITROGEN 57.9 mg/dL (7-18); CALCIUM 7.9 mg/dL (8.5-10.1)
[2021-04-29 13:13] LABS: CREATININE 1.2 mg/dL (0.55-1.3)
[2021-04-29] MEDS: MIDAZOLAM 100 MG/100 ML MG IVPB SCH ×2 (15:13→17:18)
[2021-04-29] MEDS: AMINO ACIDS/PROTEIN HYDROLYS 30 ML LIQUID.PKT PO SCH (16:37)
[2021-04-29] MEDS: VANCOMYCIN/WATER FOR INJ (PEG) 750 MG/150 ML BAG IVPB SCH (17:17)
[2021-04-29] MEDS: ASCORBIC ACID 500 MG TABLET (FP) GT SCH (21:26)
[2021-04-29] MEDS: CHLORHEXIDINE GLUCONATE 4% CLEANSER FOR DECOLONIZATION TP SCH (21:27)
[2021-04-30] MEDS: FENTANYL NS IVPB 500 MCG/100 ML BAG IVPB SCH ×2 (02:00→18:37)
[2021-04-30] MEDS: INSULIN SLIDING SCALE (NOVOLOG) 1 VIAL SQ SCH ×3 (06:27→17:40)
[2021-04-30] MEDS: LEVOTHYROXINE NA 50 MCG TABLET (FP) PO SCH (06:27)
[2021-04-30 07:32] LABS: HEMATOCRIT 25.4 % (32.4-45.2); HEMOGLOBIN 7.7 GM/dL (10.7-15.3); MCH 29.6 pg (25.7-33.7); MCHC 30.4 g/dl (32.0-36.0); MEAN CELL VOLUME 97.4 fl (80-96); PLATELET COUNT 264 10^3/uL (134-434); RBC 2.61 M/mm3 (3.60-5.2); RDW 14.5 % (11.6-15.6)
[2021-04-30 07:50] LABS: BLOOD UREA NITROGEN 47.6 mg/dL (7-18)
[2021-04-30 07:53] LABS: CREATININE 0.9 mg/dL (0.55-1.3); PHOSPHOROUS 2.4 mg/dL (2.5-4.9)
[2021-04-30] MEDS ORDERED: MEROPENEM 1 GM VIAL (RESTRICTED TO ID) IVPB ONE ×2 (08:41→21:10)
[2021-04-30] MEDS ORDERED: DEXTROSE 5%-WATER 100 ML IVPB ONE ×2 (08:41→21:10)
[2021-04-30 08:50] LABS: ANISOCYTOSIS 0; HELMET CELLS 0; HOWELL-JOLLY BODIES 0; MACROCYTOSIS 0; OVALOCYTE 0; PLATELET ESTIMATE NORMAL; ROULEAU 0; SICKELED CELLS 0; TARGET CELLS 0; TEAR DROP CELLS 0; TOXIC GRANULATION 0
[2021-04-30] MEDS: AMINO ACIDS/PROTEIN HYDROLYS 30 ML LIQUID.PKT PO SCH ×2 (08:50→18:38)
[2021-04-30] MEDS ORDERED: DEXTROSE 50%-WATER 25 GM/50 ML DISP.SYRIN IVPUSH ONE (08:55)
[2021-04-30] MEDS: MEROPENEM 1 GM in DEXTROSE 5%-WATER 100 ML IVPB SCH ×2 (09:24→21:48)
[2021-04-30] MEDS: ASCORBIC ACID 500 MG TABLET (FP) GT SCH ×2 (09:25→21:48)
[2021-04-30] MEDS: FLUTICASONE PROP 0.05% 16 GM NASAL SPRAY NS SCH ×2 (09:25→21:49)
[2021-04-30] MEDS: MULTIVIT-MINERALS ORAL LIQUID GT SCH (09:25)
[2021-04-30] MEDS: APIXABAN 2.5 MG TABLET PO SCH ×2 (09:25→21:48)
[2021-04-30] MEDS: INSULIN (LEVEMIR) 100 UNITS/ML UNITS SQ SCH (09:26)
[2021-04-30] MEDS ORDERED: DEXTROSE 50%-WATER 25 GM/50 ML DISP.SYRIN ONE (09:58)
[2021-04-30] MEDS: OXYMETAZOLINE 0.05% NASAL SOLUTION 15 ML BOTTLE NS SCH ×2 (10:12→21:51)
[2021-04-30] MEDS: MUPIROCIN 2% TOPICAL OINTMENT FOR DECOLONIZATION NS SCH ×2 (10:12→21:51)
[2021-04-30] MEDS: NAPH,MB-DB/K PH,MBDB POWDER PACKET PEG SCH (10:46)
[2021-04-30] MEDS: DEXTROSE 5%-WATER - 1,000 ML IV SCH (12:09)
[2021-04-30] MEDS: VANCOMYCIN/WATER FOR INJ (PEG) 750 MG/150 ML BAG IVPB SCH (17:48)
[2021-04-30] MEDS: NOREPINEPHRINE BITARTRATE 16,000 MCG in SODIUM CHLORIDE 484 ML IV SCH ×2 (21:01→21:02)
[2021-04-30] MEDS: VASOPRESSIN 40 UNITS/100 ML BAG IV SCH ×2 (21:02→23:45)
[2021-04-30] MEDS: MIDAZOLAM 100 MG/100 ML MG IVPB SCH (21:02)
[2021-04-30] MEDS: CHLORHEXIDINE GLUCONATE 4% CLEANSER FOR DECOLONIZATION TP SCH (21:48)
[2021-04-30] MEDS: SODIUM CHLORIDE NASAL SPRAY 44 ML BOTTLE NS PRN (21:50)
[2021-04-30] MEDS ORDERED: METOCLOPRAMIDE HCL INJECTION 10 MG/2 ML VIAL IVPUSH ONE (22:30)
[2021-05-01] MEDS: FENTANYL NS IVPB 500 MCG/100 ML BAG IVPB SCH ×2 (01:53→22:30)
[2021-05-01] MEDS: INSULIN SLIDING SCALE (NOVOLOG) 1 VIAL SQ SCH ×5 (06:18→22:11)
[2021-05-01] MEDS: LEVOTHYROXINE NA 50 MCG TABLET (FP) PO SCH (06:18)
[2021-05-01 07:13] LABS: HEMATOCRIT 24.9 % (32.4-45.2); HEMOGLOBIN 7.8 GM/dL (10.7-15.3); MCHC 31.3 g/dl (32.0-36.0); MEAN CELL VOLUME 95.9 fl (80-96); PLATELET COUNT 290 10^3/uL (134-434); RDW 14.8 % (11.6-15.6); WHITE BLOOD COUNT 13.5 K/mm3 (4.0-10.0)
[2021-05-01 07:29] LABS: CALCIUM 7.8 mg/dL (8.5-10.1)
[2021-05-01 07:30] LABS: ALBUMIN 1.1 g/dl (3.4-5.0); BLOOD UREA NITROGEN 47.9 mg/dL (7-18); MAGNESIUM 2.2 mg/dL (1.8-2.4)
[2021-05-01 07:33] LABS: CREATININE 0.9 mg/dL (0.55-1.3)
[2021-05-01 07:34] LABS: BILIRUBIN,TOTAL 0.8 mg/dL (0.2-1); TOT PROT 5.1 g/dl (6.4-8.2)
[2021-05-01] MEDS ORDERED: MEROPENEM 1 GM VIAL (RESTRICTED TO ID) IVPB ONE (08:30)
[2021-05-01] MEDS ORDERED: DEXTROSE 5%-WATER 100 ML IVPB ONE (08:30)
[2021-05-01] MEDS: AMINO ACIDS/PROTEIN HYDROLYS 30 ML LIQUID.PKT PO SCH ×2 (09:00→16:53)
[2021-05-01] MEDS: NAPH,MB-DB/K PH,MBDB POWDER PACKET PEG SCH (09:24)
[2021-05-01] MEDS: MEROPENEM 1 GM in DEXTROSE 5%-WATER 100 ML IVPB SCH (09:25)
[2021-05-01] MEDS: MUPIROCIN 2% TOPICAL OINTMENT FOR DECOLONIZATION NS SCH ×2 (09:25→21:27)
[2021-05-01] MEDS: OXYMETAZOLINE 0.05% NASAL SOLUTION 15 ML BOTTLE NS SCH ×2 (09:25→21:25)
[2021-05-01] MEDS: MULTIVIT-MINERALS ORAL LIQUID GT SCH (09:25)
[2021-05-01] MEDS: FLUTICASONE PROP 0.05% 16 GM NASAL SPRAY NS SCH ×2 (09:25→21:25)
[2021-05-01] MEDS: ASCORBIC ACID 500 MG TABLET (FP) GT SCH ×2 (09:26→21:25)
[2021-05-01] MEDS: APIXABAN 2.5 MG TABLET PO SCH ×2 (09:26→21:25)
[2021-05-01] MEDS: INSULIN (LEVEMIR) 100 UNITS/ML UNITS SQ SCH (09:31)
[2021-05-01 09:33] LABS: ANISOCYTOSIS 0; MACROCYTOSIS 1+; PLATELET ESTIMATE NORMAL
[2021-05-01] MEDS: DAPTOMYCIN 400 MG in SODIUM CHLORIDE 50 ML IVPB SCH (11:46)
[2021-05-01] MEDS ORDERED: DEXTROSE 50%-WATER - 25 GM/50 ML VIAL IVPUSH ONE (16:38)
[2021-05-01] MEDS ORDERED: DEXTROSE 50%-WATER - 25 GM/50 ML VIAL ONE (16:51)
[2021-05-01] MEDS: DEXTROSE 5%-WATER - 1,000 ML IV SCH (17:14)
[2021-05-01] MEDS: METOCLOPRAMIDE HCL INJECTION 10 MG/2 ML VIAL IVPUSH SCH (17:14)
[2021-05-01] MEDS: COLLAGENASE CLOSTRIDIUM HIST. 30 GRAMS TUBE TP SCH (17:14)
[2021-05-01] MEDS ORDERED: PIPERACILLIN/TAZOBACTAM 3.375 GM VIAL IVPB ONE (17:46)
[2021-05-01] MEDS ORDERED: DEXTROSE 5%-WATER - 50 ML IVPB ONE (17:46)
[2021-05-01] MEDS: PIPERACILLIN/TAZOB 3.375 GM 3.375 GM in DEXTROSE 5%-WATER - 50 ML IVPB SCH (17:58)
[2021-05-01] MEDS: NOREPINEPHRINE BITARTRATE 16,000 MCG in SODIUM CHLORIDE 484 ML IV SCH (19:18)
[2021-05-01] MEDS: MIDAZOLAM 100 MG/100 ML MG IVPB SCH ×2 (19:18→19:42)
[2021-05-01] MEDS: SODIUM CHLORIDE NASAL SPRAY 44 ML BOTTLE NS PRN (21:25)
[2021-05-01] MEDS: CHLORHEXIDINE GLUCONATE 4% CLEANSER FOR DECOLONIZATION TP SCH (21:27)
[2021-05-01] MEDS: VASOPRESSIN 40 UNITS/100 ML BAG IV SCH (22:55)
[2021-05-02] MEDS: METOCLOPRAMIDE HCL INJECTION 10 MG/2 ML VIAL IVPUSH SCH ×3 (00:39→17:00)
[2021-05-02] MEDS ORDERED: DEXTROSE 5%-WATER - 50 ML IVPB ONE ×3 (00:57→17:24)
[2021-05-02] MEDS ORDERED: PIPERACILLIN/TAZOBACTAM 3.375 GM VIAL IVPB ONE ×3 (00:57→17:24)
[2021-05-02] MEDS: PIPERACILLIN/TAZOB 3.375 GM 3.375 GM in DEXTROSE 5%-WATER - 50 ML IVPB SCH ×3 (01:05→18:15)
[2021-05-02] MEDS: LEVOTHYROXINE NA 50 MCG TABLET (FP) PO SCH (06:08)
[2021-05-02] MEDS: INSULIN SLIDING SCALE (NOVOLOG) 1 VIAL SQ SCH ×4 (06:08→21:25)
[2021-05-02] MEDS ORDERED: LACTATED RINGERS SOLUTION 1000 ML INFUS.BAG IV ONE (06:38)
[2021-05-02 07:20] LABS: HEMATOCRIT 22.8 % (32.4-45.2); HEMOGLOBIN 7.3 GM/dL (10.7-15.3); MCH 31.1 pg (25.7-33.7); MCHC 32.2 g/dl (32.0-36.0); MEAN CELL VOLUME 96.7 fl (80-96); PLATELET COUNT 306 10^3/uL (134-434); RBC 2.36 M/mm3 (3.60-5.2); RDW 14.9 % (11.6-15.6)
[2021-05-02 07:49] LABS: CALCIUM 7.6 mg/dL (8.5-10.1)
[2021-05-02 07:50] LABS: BLOOD UREA NITROGEN 51.3 mg/dL (7-18)
[2021-05-02 07:51] LABS: MAGNESIUM 2.1 mg/dL (1.8-2.4)
[2021-05-02 07:53] LABS: CREATININE 0.9 mg/dL (0.55-1.3)
[2021-05-02 07:54] LABS: TOT PROT 4.9 g/dl (6.4-8.2)
[2021-05-02 07:55] LABS: BILIRUBIN,TOTAL 0.4 mg/dL (0.2-1)
[2021-05-02] MEDS: AMINO ACIDS/PROTEIN HYDROLYS 30 ML LIQUID.PKT PO SCH ×2 (09:00→17:00)
[2021-05-02] MEDS: ASCORBIC ACID 500 MG TABLET (FP) GT SCH ×2 (09:00→21:20)
[2021-05-02] MEDS: MULTIVIT-MINERALS ORAL LIQUID GT SCH (09:00)
[2021-05-02] MEDS: APIXABAN 2.5 MG TABLET PO SCH ×2 (09:00→21:20)
[2021-05-02] MEDS: MUPIROCIN 2% TOPICAL OINTMENT FOR DECOLONIZATION NS SCH ×2 (09:00→21:25)
[2021-05-02] MEDS: NAPH,MB-DB/K PH,MBDB POWDER PACKET PEG SCH (09:00)
[2021-05-02] MEDS: FLUTICASONE PROP 0.05% 16 GM NASAL SPRAY NS SCH ×2 (09:22→21:24)
[2021-05-02 10:26] LABS: ANISOCYTOSIS 0; HELMET CELLS 0; HOWELL-JOLLY BODIES 0; MACROCYTOSIS 0; OVALOCYTE 0; PLATELET ESTIMATE NORMAL; ROULEAU 0; SICKELED CELLS 0; TARGET CELLS 0; TEAR DROP CELLS 0; TOXIC GRANULATION 0
[2021-05-02] MEDS: INSULIN (LEVEMIR) 100 UNITS/ML UNITS SQ SCH (10:47)
[2021-05-02] MEDS: COLLAGENASE CLOSTRIDIUM HIST. 30 GRAMS TUBE TP SCH (10:47)
[2021-05-02] MEDS: DAPTOMYCIN 400 MG in SODIUM CHLORIDE 50 ML IVPB SCH (12:33)
[2021-05-02 13:13] VITALS: BMI 21.6
[2021-05-02] MEDS ORDERED: ACETAMINOPHEN 1000 MG/100 ML BAG IVPB ONE (16:33)
[2021-05-02] MEDS: DEXTROSE 5%-WATER - 1,000 ML IV SCH (19:48)
[2021-05-02] MEDS: MIDAZOLAM 100 MG/100 ML MG IVPB SCH (19:48)
[2021-05-02] MEDS: NOREPINEPHRINE BITARTRATE 16,000 MCG in SODIUM CHLORIDE 484 ML IV SCH (19:48)
[2021-05-02] MEDS: CHLORHEXIDINE GLUCONATE 4% CLEANSER FOR DECOLONIZATION TP SCH (21:25)
[2021-05-03] MEDS ORDERED: DEXTROSE 5%-WATER - 50 ML IVPB ONE ×3 (01:40→17:50)
[2021-05-03] MEDS ORDERED: PIPERACILLIN/TAZOBACTAM 3.375 GM VIAL IVPB ONE ×3 (01:40→17:49)
[2021-05-03] MEDS: FENTANYL NS IVPB 500 MCG/100 ML BAG IVPB SCH (01:43)
[2021-05-03] MEDS: PIPERACILLIN/TAZOB 3.375 GM 3.375 GM in DEXTROSE 5%-WATER - 50 ML IVPB SCH ×3 (01:43→17:52)
[2021-05-03] MEDS: LEVOTHYROXINE NA 50 MCG TABLET (FP) PO SCH (06:21)
[2021-05-03] MEDS: INSULIN SLIDING SCALE (NOVOLOG) 1 VIAL SQ SCH ×4 (06:21→21:13)
[2021-05-03 08:22] LABS: BASO % 0.2 % (0-2.0); EOS % 0.6 % (0-4.5); HEMATOCRIT 21.3 % (32.4-45.2); LYMPH % 8.4 % (8-40); MCH 30.1 pg (25.7-33.7); MCHC 31.2 g/dl (32.0-36.0); MEAN CELL VOLUME 96.5 fl (80-96); MEAN PLT VOLUME 9.4 fl (7.5-11.1); MONO % 5.9 % (3.8-10.2); NEUT % 84.9 % (42.8-82.8); PLATELET COUNT 376 10^3/uL (134-434); RDW 14.5 % (11.6-15.6)
[2021-05-03] MEDS: DEXTROSE 5%-WATER - 1,000 ML IV SCH (08:25)
[2021-05-03] MEDS: METOCLOPRAMIDE HCL INJECTION 10 MG/2 ML VIAL IVPUSH SCH ×3 (08:26→17:52)
[2021-05-03] MEDS: AMINO ACIDS/PROTEIN HYDROLYS 30 ML LIQUID.PKT PO SCH ×2 (08:26→17:52)
[2021-05-03 08:33] LABS: HEMOGLOBIN 6.6 GM/dL (10.7-15.3)
[2021-05-03 08:51] LABS: BLOOD UREA NITROGEN 55.6 mg/dL (7-18)
[2021-05-03 08:52] LABS: MAGNESIUM 2.3 mg/dL (1.8-2.4)
[2021-05-03 08:54] LABS: PHOSPHOROUS 4.8 mg/dL (2.5-4.9)
[2021-05-03 08:55] LABS: TOT PROT 4.9 g/dl (6.4-8.2)
[2021-05-03 08:56] LABS: BILIRUBIN,TOTAL 0.4 mg/dL (0.2-1)
[2021-05-03] MEDS: APIXABAN 2.5 MG TABLET PO SCH (09:10)
[2021-05-03] MEDS: ASCORBIC ACID 500 MG TABLET (FP) GT SCH ×2 (09:10→21:09)
[2021-05-03] MEDS: COLLAGENASE CLOSTRIDIUM HIST. 30 GRAMS TUBE TP SCH (09:11)
[2021-05-03] MEDS: FLUTICASONE PROP 0.05% 16 GM NASAL SPRAY NS SCH ×2 (10:06→21:14)
[2021-05-03] MEDS: INSULIN (LEVEMIR) 100 UNITS/ML UNITS SQ SCH (10:13)
[2021-05-03] MEDS: MULTIVIT-MINERALS ORAL LIQUID GT SCH (10:14)
[2021-05-03] MEDS: DAPTOMYCIN 400 MG in SODIUM CHLORIDE 50 ML IVPB SCH (12:11)
[2021-05-03] MEDS ORDERED: DEXTROSE 50%-WATER 25 GM/50 ML DISP.SYRIN ONE (17:49)
[2021-05-03] MEDS ORDERED: DEXTROSE 50%-WATER - 25 GM/50 ML VIAL IVPUSH PRN (18:13)
[2021-05-03] MEDS ORDERED: DEXTROSE 50%-WATER - 25 GM/50 ML VIAL IVPUSH ONE (18:13)
[2021-05-03] MEDS: NOREPINEPHRINE BITARTRATE 16,000 MCG in SODIUM CHLORIDE 484 ML IV SCH ×2 (19:36)
[2021-05-03] MEDS: MIDAZOLAM 100 MG/100 ML MG IVPB SCH (19:36)
[2021-05-03 19:37] LABS: HEMATOCRIT 29.9 % (32.4-45.2); HEMOGLOBIN 9.8 GM/dL (10.7-15.3); MCH 29.8 pg (25.7-33.7); MCHC 32.9 g/dl (32.0-36.0); MEAN CELL VOLUME 90.6 fl (80-96); MEAN PLT VOLUME 8.6 fl (7.5-11.1); PLATELET COUNT 365 10^3/uL (134-434); RDW 16.4 % (11.6-15.6); WHITE BLOOD COUNT 18.6 K/mm3 (4.0-10.0)
[2021-05-03] MEDS: CHLORHEXIDINE GLUCONATE 4% CLEANSER FOR DECOLONIZATION TP SCH (21:09)
[2021-05-03] MEDS ORDERED: LOPERAMIDE HCL 1 MG/5 ML UNIT DOSE CUP GT ONE (22:03)
[2021-05-03] MEDS ORDERED: LOPERAMIDE HCL 1 MG/7.5 ML LIQUID GT ONE (22:30)
[2021-05-03] MEDS: VASOPRESSIN 40 UNITS/100 ML BAG IV SCH ×2 (22:44)
[2021-05-04] MEDS: METOCLOPRAMIDE HCL INJECTION 10 MG/2 ML VIAL IVPUSH SCH ×2 (00:34→08:49)
[2021-05-04] MEDS ORDERED: PIPERACILLIN/TAZOBACTAM 3.375 GM VIAL IVPB ONE ×3 (00:36→17:31)
[2021-05-04] MEDS ORDERED: DEXTROSE 5%-WATER - 50 ML IVPB ONE ×3 (00:36→17:31)
[2021-05-04] MEDS: PIPERACILLIN/TAZOB 3.375 GM 3.375 GM in DEXTROSE 5%-WATER - 50 ML IVPB SCH ×3 (01:01→17:53)
[2021-05-04] MEDS: FENTANYL NS IVPB 500 MCG/100 ML BAG IVPB SCH (05:30)
[2021-05-04] MEDS ORDERED: DEXTROSE 50%-WATER 25 GM/50 ML DISP.SYRIN ONE (05:53)
[2021-05-04] MEDS: DEXTROSE 50%-WATER 25 GM/50 ML DISP.SYRIN IVPUSH ONE ×2 (05:58→06:23)
[2021-05-04] MEDS: LEVOTHYROXINE NA 50 MCG TABLET (FP) PO SCH (06:23)
[2021-05-04] MEDS: INSULIN SLIDING SCALE (NOVOLOG) 1 VIAL SQ SCH ×4 (06:23→22:15)
[2021-05-04 07:00] LABS: HEMATOCRIT 27.9 % (32.4-45.2); HEMOGLOBIN 9.2 GM/dL (10.7-15.3); MCH 29.4 pg (25.7-33.7); MEAN CELL VOLUME 89.2 fl (80-96); MEAN PLT VOLUME 8.8 fl (7.5-11.1); PLATELET COUNT 400 10^3/uL (134-434); RBC 3.13 M/mm3 (3.60-5.2); RDW 17.5 % (11.6-15.6); WHITE BLOOD COUNT 18.5 K/mm3 (4.0-10.0)
[2021-05-04 07:19] LABS: CHLORIDE 115 mmol/L (98-107); SODIUM 144 mmol/L (136-145)
[2021-05-04 07:22] LABS: CALCIUM 7.9 mg/dL (8.5-10.1)
[2021-05-04 07:23] LABS: ANION GAP 7 MMOL/L (8-16); BLOOD UREA NITROGEN 58.7 mg/dL (7-18); CO2 22 mmol/L (21-32)
[2021-05-04 07:25] LABS: SGPT/ALT 7 U/L (13-61)
[2021-05-04 07:26] LABS: CREATININE 1.1 mg/dL (0.55-1.3); SGOT/AST 16 U/L (15-37)
[2021-05-04 07:27] LABS: BILIRUBIN,TOTAL 0.3 mg/dL (0.2-1); TOT PROT 4.8 g/dl (6.4-8.2)
[2021-05-04 07:28] LABS: ALK PHOS 89 U/L (45-117)
[2021-05-04 07:37] LABS: GLUCOSE,RANDOM 32 mg/dL (74-106)
[2021-05-04] MEDS: BANATROL PLUS POWDER PACKET GT SCH ×3 (07:45→22:08)
[2021-05-04 08:46] LABS: ANISOCYTOSIS 2+; MACROCYTOSIS 0; OVALOCYTE 1+; PLATELET ESTIMATE NORMAL; TARGET CELLS 1+; TEAR DROP CELLS 1+; TOXIC GRANULATION 2+
[2021-05-04] MEDS: AMINO ACIDS/PROTEIN HYDROLYS 30 ML LIQUID.PKT PO SCH ×2 (08:48→17:52)
[2021-05-04] MEDS: DEXTROSE 5%-WATER - 1,000 ML IV SCH (09:10)
[2021-05-04] MEDS: MULTIVIT-MINERALS ORAL LIQUID GT SCH (09:11)
[2021-05-04] MEDS: FLUTICASONE PROP 0.05% 16 GM NASAL SPRAY NS SCH ×2 (09:11→22:09)
[2021-05-04] MEDS: ASCORBIC ACID 500 MG TABLET (FP) GT SCH ×2 (09:12→22:08)
[2021-05-04] MEDS: COLLAGENASE CLOSTRIDIUM HIST. 30 GRAMS TUBE TP SCH (10:00)
[2021-05-04] MEDS: APIXABAN 2.5 MG TABLET PO SCH (11:11)
[2021-05-04] MEDS: DAPTOMYCIN 400 MG in SODIUM CHLORIDE 50 ML IVPB SCH (12:03)
[2021-05-04] MEDS: NOREPINEPHRINE BITARTRATE 16,000 MCG in SODIUM CHLORIDE 484 ML IV SCH (17:52)
[2021-05-04] MEDS: MIDAZOLAM 100 MG/100 ML MG IVPB SCH (19:31)
[2021-05-04] MEDS: APIXABAN 2.5 MG TABLET GT SCH (22:09)
[2021-05-04] MEDS: CHLORHEXIDINE GLUCONATE 4% CLEANSER FOR DECOLONIZATION TP SCH (22:09)
[2021-05-04] MEDS: VASOPRESSIN 40 UNITS/100 ML BAG IV SCH (23:29)
[2021-05-05] MEDS ORDERED: PIPERACILLIN/TAZOBACTAM 3.375 GM VIAL IVPB ONE ×4 (01:15→21:09)
[2021-05-05] MEDS ORDERED: DEXTROSE 5%-WATER - 50 ML IVPB ONE ×4 (01:15→21:09)
[2021-05-05] MEDS: FENTANYL NS IVPB 500 MCG/100 ML BAG IVPB SCH (01:23)
[2021-05-05] MEDS: PIPERACILLIN/TAZOB 3.375 GM 3.375 GM in DEXTROSE 5%-WATER - 50 ML IVPB SCH ×4 (01:26→17:42)
[2021-05-05] MEDS: DEXTROSE 5%-WATER - 1,000 ML IV SCH ×2 (01:54→08:30)
[2021-05-05] MEDS: BANATROL PLUS POWDER PACKET GT SCH ×3 (05:24→21:14)
[2021-05-05] MEDS: INSULIN SLIDING SCALE (NOVOLOG) 1 VIAL SQ SCH ×4 (06:00→21:15)
[2021-05-05] MEDS: INSULIN (LEVEMIR) 100 UNITS/ML UNITS SQ SCH (06:00)
[2021-05-05] MEDS: LEVOTHYROXINE NA 50 MCG TABLET (FP) PO SCH (06:01)
[2021-05-05 07:18] LABS: BASO % 0.2 % (0-2.0); EOS % 0.4 % (0-4.5); HEMATOCRIT 29.1 % (32.4-45.2); HEMOGLOBIN 9.4 GM/dL (10.7-15.3); LYMPH % 7.2 % (8-40); MCH 29.2 pg (25.7-33.7); MCHC 32.4 g/dl (32.0-36.0); MEAN CELL VOLUME 90.2 fl (80-96); MEAN PLT VOLUME 8.9 fl (7.5-11.1); MONO % 3.4 % (3.8-10.2); NEUT % 88.8 % (42.8-82.8); PLATELET COUNT 521 10^3/uL (134-434); RBC 3.22 M/mm3 (3.60-5.2); WHITE BLOOD COUNT 15.8 K/mm3 (4.0-10.0)
[2021-05-05 07:41] LABS: ALBUMIN 1.1 g/dl (3.4-5.0); BLOOD UREA NITROGEN 61.6 mg/dL (7-18)
[2021-05-05 07:42] LABS: CALCIUM 7.6 mg/dL (8.5-10.1); MAGNESIUM 2.2 mg/dL (1.8-2.4)
[2021-05-05 07:44] LABS: CREATININE 1.2 mg/dL (0.55-1.3); PHOSPHOROUS 5.4 mg/dL (2.5-4.9); TOT PROT 5.1 g/dl (6.4-8.2)
[2021-05-05 07:45] LABS: BILIRUBIN,TOTAL 0.4 mg/dL (0.2-1)
[2021-05-05] MEDS: AMINO ACIDS/PROTEIN HYDROLYS 30 ML LIQUID.PKT PO SCH ×2 (09:00→17:42)
[2021-05-05] MEDS: APIXABAN 2.5 MG TABLET GT SCH ×2 (10:38→21:14)
[2021-05-05] MEDS: MULTIVIT-MINERALS ORAL LIQUID GT SCH (10:38)
[2021-05-05] MEDS: ASCORBIC ACID 500 MG TABLET (FP) GT SCH ×2 (10:38→21:14)
[2021-05-05] MEDS: FLUTICASONE PROP 0.05% 16 GM NASAL SPRAY NS SCH ×2 (10:39→21:14)
[2021-05-05] MEDS: COLLAGENASE CLOSTRIDIUM HIST. 30 GRAMS TUBE TP SCH (11:39)
[2021-05-05] MEDS: DAPTOMYCIN 400 MG in SODIUM CHLORIDE 50 ML IVPB SCH (11:47)
[2021-05-05] MEDS: CHLORHEXIDINE GLUCONATE 4% CLEANSER FOR DECOLONIZATION TP SCH (21:14)
[2021-05-06] MEDS: PIPERACILLIN/TAZOB 3.375 GM 3.375 GM in DEXTROSE 5%-WATER - 50 ML IVPB SCH ×3 (01:00→17:04)
[2021-05-06] MEDS: LEVOTHYROXINE NA 50 MCG TABLET (FP) PO SCH (06:07)
[2021-05-06] MEDS: BANATROL PLUS POWDER PACKET GT SCH ×3 (06:07→21:10)
[2021-05-06] MEDS: INSULIN (LEVEMIR) 100 UNITS/ML UNITS SQ SCH (06:07)
[2021-05-06] MEDS: INSULIN SLIDING SCALE (NOVOLOG) 1 VIAL SQ SCH ×4 (06:07→21:11)
[2021-05-06 07:14] LABS: HEMOGLOBIN 8.1 GM/dL (10.7-15.3); MCH 29.4 pg (25.7-33.7); MCHC 32.2 g/dl (32.0-36.0); MEAN CELL VOLUME 91.3 fl (80-96); MEAN PLT VOLUME 8.6 fl (7.5-11.1); PLATELET COUNT 482 10^3/uL (134-434); RBC 2.74 M/mm3 (3.60-5.2); WHITE BLOOD COUNT 15.5 K/mm3 (4.0-10.0)
[2021-05-06 07:42] LABS: CALCIUM 7.3 mg/dL (8.5-10.1)
[2021-05-06 07:43] LABS: BLOOD UREA NITROGEN 56.7 mg/dL (7-18); MAGNESIUM 2.2 mg/dL (1.8-2.4)
[2021-05-06 07:46] LABS: CREATININE 1.1 mg/dL (0.55-1.3)
[2021-05-06] MEDS: AMINO ACIDS/PROTEIN HYDROLYS 30 ML LIQUID.PKT PO SCH ×2 (08:03→17:04)
[2021-05-06] MEDS ORDERED: PIPERACILLIN/TAZOBACTAM 3.375 GM VIAL IVPB ONE ×3 (08:05→21:03)
[2021-05-06] MEDS ORDERED: DEXTROSE 5%-WATER - 50 ML IVPB ONE ×3 (08:05→21:03)
[2021-05-06] MEDS: DEXTROSE 5%-WATER - 1,000 ML IV SCH (08:15)
[2021-05-06] MEDS: APIXABAN 2.5 MG TABLET GT SCH ×2 (09:00→21:10)
[2021-05-06] MEDS: FLUTICASONE PROP 0.05% 16 GM NASAL SPRAY NS SCH ×2 (09:00→21:10)
[2021-05-06] MEDS: COLLAGENASE CLOSTRIDIUM HIST. 30 GRAMS TUBE TP SCH (09:00)
[2021-05-06] MEDS: MULTIVIT-MINERALS ORAL LIQUID GT SCH (09:00)
[2021-05-06] MEDS: ASCORBIC ACID 500 MG TABLET (FP) GT SCH ×2 (09:01→21:10)
[2021-05-06] MEDS ORDERED: POTASSIUM CHLORIDE ORAL LIQUID 20 MEQ/15 ML PO ONE (11:45)
[2021-05-06] MEDS: DAPTOMYCIN 400 MG in SODIUM CHLORIDE 50 ML IVPB SCH (12:15)
[2021-05-06] MEDS: CHLORHEXIDINE GLUCONATE 4% CLEANSER FOR DECOLONIZATION TP SCH (21:10)
[2021-05-07] MEDS: PIPERACILLIN/TAZOB 3.375 GM 3.375 GM in DEXTROSE 5%-WATER - 50 ML IVPB SCH ×2 (02:10→09:58)
[2021-05-07] MEDS: BANATROL PLUS POWDER PACKET GT SCH ×3 (05:42→22:55)
[2021-05-07] MEDS: LEVOTHYROXINE NA 50 MCG TABLET (FP) PO SCH (06:08)
[2021-05-07] MEDS: INSULIN (LEVEMIR) 100 UNITS/ML UNITS SQ SCH (06:08)
[2021-05-07] MEDS: INSULIN SLIDING SCALE (NOVOLOG) 1 VIAL SQ SCH ×4 (06:09→23:07)
[2021-05-07] MEDS: AMINO ACIDS/PROTEIN HYDROLYS 30 ML LIQUID.PKT PO SCH ×2 (08:45→17:35)
[2021-05-07] MEDS: COLLAGENASE CLOSTRIDIUM HIST. 30 GRAMS TUBE TP SCH (09:57)
[2021-05-07] MEDS ORDERED: PIPERACILLIN/TAZOBACTAM 3.375 GM VIAL IVPB ONE (09:57)
[2021-05-07] MEDS ORDERED: DEXTROSE 5%-WATER - 50 ML IVPB ONE (09:57)
[2021-05-07] MEDS: APIXABAN 2.5 MG TABLET GT SCH ×2 (09:58→22:55)
[2021-05-07] MEDS: MULTIVIT-MINERALS ORAL LIQUID GT SCH (09:58)
[2021-05-07] MEDS: ASCORBIC ACID 500 MG TABLET (FP) GT SCH ×2 (09:58→22:55)
[2021-05-07] MEDS: DEXTROSE 5%-WATER - 1,000 ML IV SCH ×2 (09:59→22:55)
[2021-05-07] MEDS: FLUTICASONE PROP 0.05% 16 GM NASAL SPRAY NS SCH ×2 (10:05→22:55)
[2021-05-07] MEDS: DAPTOMYCIN 400 MG in SODIUM CHLORIDE 50 ML IVPB SCH (11:04)
[2021-05-07] MEDS: PANTOPRAZOLE SODIUM 40 MG VIAL IVPUSH SCH (16:11)
[2021-05-07] MEDS ORDERED: ACETAMINOPHEN 500 MG TABLET (FP) PO ONE (16:49)
[2021-05-07] MEDS ORDERED: DEXTROSE 50%-WATER - 25 GM/50 ML VIAL IVPUSH PRN (20:43)
[2021-05-07] MEDS ORDERED: SODIUM CHLORIDE NASAL SPRAY 44 ML BOTTLE NS PRN (20:43)
[2021-05-07] MEDS ORDERED: CHLORHEXIDINE GLUCONATE 4% CLEANSER FOR DECOLONIZATION TP SCH (22:00)
[2021-05-08] MEDS: LEVOTHYROXINE NA 50 MCG TABLET (FP) PO SCH (06:05)
[2021-05-08] MEDS: BANATROL PLUS POWDER PACKET GT SCH ×3 (06:05→21:35)
[2021-05-08] MEDS: INSULIN SLIDING SCALE (NOVOLOG) 1 VIAL SQ SCH ×4 (06:47→21:53)
[2021-05-08] MEDS: INSULIN (LEVEMIR) 100 UNITS/ML UNITS SQ SCH (06:48)
[2021-05-08 08:24] LABS: BASO % 0.3 % (0-2.0); EOS % 0.3 % (0-4.5); HEMATOCRIT 23.1 % (32.4-45.2); HEMOGLOBIN 7.7 GM/dL (10.7-15.3); LYMPH % 9.1 % (8-40); MCH 32.2 pg (25.7-33.7); MCHC 33.5 g/dl (32.0-36.0); MEAN CELL VOLUME 96.2 fl (80-96); MEAN PLT VOLUME 8.2 fl (7.5-11.1); MONO % 3.7 % (3.8-10.2); NEUT % 86.6 % (42.8-82.8); PLATELET COUNT 840 10^3/uL (134-434); RDW 17.9 % (11.6-15.6); WHITE BLOOD COUNT 17.7 K/mm3 (4.0-10.0)
[2021-05-08 08:52] LABS: BLOOD UREA NITROGEN 46.2 mg/dL (7-18)
[2021-05-08 08:54] LABS: ALBUMIN 1.2 g/dl (3.4-5.0)
[2021-05-08] MEDS: AMINO ACIDS/PROTEIN HYDROLYS 30 ML LIQUID.PKT PO SCH ×2 (08:54→17:59)
[2021-05-08 09:10] LABS: CREATININE 0.9 mg/dL (0.55-1.3)
[2021-05-08 09:11] LABS: TOT PROT 5.9 g/dl (6.4-8.2)
[2021-05-08 09:12] LABS: BILIRUBIN,TOTAL 0.3 mg/dL (0.2-1)
[2021-05-08 09:13] LABS: CALCIUM 8.7 mg/dL (8.5-10.1)
[2021-05-08] MEDS: ASCORBIC ACID 500 MG TABLET (FP) GT SCH ×2 (10:04→21:35)
[2021-05-08] MEDS: APIXABAN 2.5 MG TABLET GT SCH ×2 (10:04→21:35)
[2021-05-08] MEDS: MULTIVIT-MINERALS ORAL LIQUID GT SCH (10:12)
[2021-05-08] MEDS: PANTOPRAZOLE SODIUM 40 MG VIAL IVPUSH SCH (10:13)
[2021-05-08] MEDS: FLUTICASONE PROP 0.05% 16 GM NASAL SPRAY NS SCH ×2 (10:13→21:53)
[2021-05-08] MEDS: COLLAGENASE CLOSTRIDIUM HIST. 30 GRAMS TUBE TP SCH (10:13)
[2021-05-08] MEDS ORDERED: INSULIN (NOVOLOG) ASPART 100 UNITS/ML 10ML VIAL ONE ×2 (11:25→21:48)
[2021-05-08] MEDS: DAPTOMYCIN 400 MG in SODIUM CHLORIDE 50 ML IVPB SCH (11:31)
[2021-05-08] MEDS: DEXTROSE 5%-WATER - 1,000 ML IV SCH (11:32)
[2021-05-08] MEDS ORDERED: PIPERACILLIN/TAZOBACTAM 3.375 GM VIAL IVPB ONE (19:38)
[2021-05-08] MEDS ORDERED: DEXTROSE 5%-WATER - 50 ML IVPB ONE (19:38)
[2021-05-08] MEDS: PIPERACILLIN/TAZOB 3.375 GM 3.375 GM in DEXTROSE 5%-WATER - 50 ML IVPB SCH (19:39)
[2021-05-09] MEDS ORDERED: PIPERACILLIN/TAZOBACTAM 3.375 GM VIAL IVPB ONE ×3 (01:00→16:12)
[2021-05-09] MEDS ORDERED: DEXTROSE 5%-WATER - 50 ML IVPB ONE ×3 (01:01→16:12)
[2021-05-09] MEDS: PIPERACILLIN/TAZOB 3.375 GM 3.375 GM in DEXTROSE 5%-WATER - 50 ML IVPB SCH ×3 (01:30→18:02)
[2021-05-09] MEDS: BANATROL PLUS POWDER PACKET GT SCH ×2 (06:14→14:01)
[2021-05-09] MEDS: LEVOTHYROXINE NA 50 MCG TABLET (FP) PO SCH (06:14)
[2021-05-09] MEDS: INSULIN SLIDING SCALE (NOVOLOG) 1 VIAL SQ SCH ×4 (06:15→21:05)
[2021-05-09] MEDS: INSULIN (LEVEMIR) 100 UNITS/ML UNITS SQ SCH (06:18)
[2021-05-09 08:48] LABS: BASO % 0.3 % (0-2.0); EOS % 0.2 % (0-4.5); HEMATOCRIT 30.5 % (32.4-45.2); HEMOGLOBIN 9.4 GM/dL (10.7-15.3); LYMPH % 10.4 % (8-40); MCHC 30.7 g/dl (32.0-36.0); MEAN CELL VOLUME 97.7 fl (80-96); MEAN PLT VOLUME 8.1 fl (7.5-11.1); MONO % 4.3 % (3.8-10.2); NEUT % 84.8 % (42.8-82.8); PLATELET COUNT 576 10^3/uL (134-434); RBC 3.12 M/mm3 (3.60-5.2); RDW 17.6 % (11.6-15.6); WHITE BLOOD COUNT 17.6 K/mm3 (4.0-10.0)
[2021-05-09] MEDS: AMINO ACIDS/PROTEIN HYDROLYS 30 ML LIQUID.PKT PO SCH ×2 (09:01→18:02)
[2021-05-09] MEDS: DAPTOMYCIN 400 MG in SODIUM CHLORIDE 50 ML IVPB SCH (12:12)
[2021-05-09] MEDS ORDERED: INSULIN (NOVOLOG) ASPART 100 UNITS/ML 10ML VIAL ONE (12:16)
[2021-05-09] MEDS: ASCORBIC ACID 500 MG TABLET (FP) GT SCH ×2 (12:32→22:00)
[2021-05-09] MEDS: APIXABAN 2.5 MG TABLET GT SCH ×2 (12:32→21:59)
[2021-05-09] MEDS: FLUTICASONE PROP 0.05% 16 GM NASAL SPRAY NS SCH ×2 (12:33→22:00)
[2021-05-09] MEDS: MULTIVIT-MINERALS ORAL LIQUID GT SCH (12:33)
[2021-05-09] MEDS: PANTOPRAZOLE SODIUM 40 MG VIAL IVPUSH SCH (12:33)
[2021-05-09] MEDS: COLLAGENASE CLOSTRIDIUM HIST. 30 GRAMS TUBE TP SCH (12:33)
[2021-05-10] MEDS ORDERED: DEXTROSE 5%-WATER - 50 ML IVPB ONE ×3 (02:01→16:47)
[2021-05-10] MEDS ORDERED: PIPERACILLIN/TAZOBACTAM 3.375 GM VIAL IVPB ONE ×3 (02:01→16:47)
[2021-05-10] MEDS: PIPERACILLIN/TAZOB 3.375 GM 3.375 GM in DEXTROSE 5%-WATER - 50 ML IVPB SCH ×3 (02:13→17:45)
[2021-05-10] MEDS: INSULIN SLIDING SCALE (NOVOLOG) 1 VIAL SQ SCH ×4 (02:13→22:07)
[2021-05-10] MEDS: LEVOTHYROXINE NA 50 MCG TABLET (FP) PO SCH (06:07)
[2021-05-10] MEDS: INSULIN (LEVEMIR) 100 UNITS/ML UNITS SQ SCH (06:07)
[2021-05-10 09:58] LABS: BASO % 0.4 % (0-2.0); EOS % 0.2 % (0-4.5); HEMATOCRIT 25.9 % (32.4-45.2); HEMOGLOBIN 8.4 GM/dL (10.7-15.3); LYMPH % 6.6 % (8-40); MCH 30.9 pg (25.7-33.7); MCHC 32.3 g/dl (32.0-36.0); MEAN CELL VOLUME 95.7 fl (80-96); MEAN PLT VOLUME 8.1 fl (7.5-11.1); MONO % 3.8 % (3.8-10.2); PLATELET COUNT 574 10^3/uL (134-434); RBC 2.71 M/mm3 (3.60-5.2); RDW 17.2 % (11.6-15.6); WHITE BLOOD COUNT 15.9 K/mm3 (4.0-10.0)
[2021-05-10 10:26] LABS: BLOOD UREA NITROGEN 39.6 mg/dL (7-18)
[2021-05-10 10:27] LABS: CALCIUM 8.2 mg/dL (8.5-10.1)
[2021-05-10 10:29] LABS: CREATININE 0.9 mg/dL (0.55-1.3); PHOSPHOROUS 3.7 mg/dL (2.5-4.9)
[2021-05-10 10:48] LABS: ARTERIAL BLD GAS O2 SATURATION 95.8 % (95-98); ARTERIAL BLOOD GAS BASE EXCESS -6.9 mmol/L (-2-2); ARTERIAL BLOOD GAS pH 7.437 (7.350-7.450)
[2021-05-10 10:52] LABS: ALLENS TEST POSITIVE
[2021-05-10] MEDS: ATENOLOL 25 MG TABLET (FP) PEG SCH (11:25)
[2021-05-10] MEDS: ASCORBIC ACID 500 MG TABLET (FP) GT SCH ×2 (11:25→21:57)
[2021-05-10] MEDS: APIXABAN 2.5 MG TABLET GT SCH ×2 (11:25→21:57)
[2021-05-10] MEDS: FLUTICASONE PROP 0.05% 16 GM NASAL SPRAY NS SCH ×2 (11:26→21:57)
[2021-05-10] MEDS: PANTOPRAZOLE SODIUM 40 MG VIAL IVPUSH SCH (11:26)
[2021-05-10] MEDS: COLLAGENASE CLOSTRIDIUM HIST. 30 GRAMS TUBE TP SCH (11:26)
[2021-05-10] MEDS: AMINO ACIDS/PROTEIN HYDROLYS 30 ML LIQUID.PKT PO SCH ×2 (11:27→17:45)
[2021-05-10] MEDS ORDERED: INSULIN (NOVOLOG) ASPART 100 UNITS/ML 10ML VIAL ONE (11:31)
[2021-05-10] MEDS: MULTIVIT-MINERALS ORAL LIQUID GT SCH (11:35)
[2021-05-10] MEDS: DAPTOMYCIN 400 MG in SODIUM CHLORIDE 50 ML IVPB SCH (12:00)
[2021-05-10] MEDS ORDERED: FUROSEMIDE 40 MG/4 ML INJECTABLE VIAL IVPUSH ONE (15:59)
[2021-05-10] MEDS: BANATROL PLUS POWDER PACKET GT SCH (21:57)
[2021-05-11] MEDS ORDERED: PIPERACILLIN/TAZOBACTAM 3.375 GM VIAL IVPB ONE ×3 (01:57→17:03)
[2021-05-11] MEDS: PIPERACILLIN/TAZOB 3.375 GM 3.375 GM in DEXTROSE 5%-WATER - 50 ML IVPB SCH ×3 (02:11→17:30)
[2021-05-11] MEDS: INSULIN SLIDING SCALE (NOVOLOG) 1 VIAL SQ SCH ×4 (02:25→20:46)
[2021-05-11] MEDS: BANATROL PLUS POWDER PACKET GT SCH ×3 (05:49→21:25)
[2021-05-11] MEDS: INSULIN (LEVEMIR) 100 UNITS/ML UNITS SQ SCH (06:01)
[2021-05-11] MEDS: LEVOTHYROXINE NA 50 MCG TABLET (FP) PO SCH (06:01)
[2021-05-11] MEDS ORDERED: DEXTROSE 5%-WATER - 50 ML IVPB ONE ×2 (09:34→17:03)
[2021-05-11] MEDS: PANTOPRAZOLE SODIUM 40 MG VIAL IVPUSH SCH (10:55)
[2021-05-11] MEDS: AMINO ACIDS/PROTEIN HYDROLYS 30 ML LIQUID.PKT PO SCH ×2 (10:55→17:30)
[2021-05-11] MEDS: APIXABAN 2.5 MG TABLET GT SCH ×2 (10:55→21:25)
[2021-05-11] MEDS: ATENOLOL 25 MG TABLET (FP) PEG SCH (10:55)
[2021-05-11] MEDS: ASCORBIC ACID 500 MG TABLET (FP) GT SCH ×2 (10:55→21:25)
[2021-05-11] MEDS: COLLAGENASE CLOSTRIDIUM HIST. 30 GRAMS TUBE TP SCH (10:57)
[2021-05-11] MEDS: FLUTICASONE PROP 0.05% 16 GM NASAL SPRAY NS SCH ×2 (10:58→21:25)
[2021-05-11] MEDS: MULTIVIT-MINERALS ORAL LIQUID GT SCH (11:08)
[2021-05-11 12:13] LABS: BASO % 0.4 % (0-2.0); EOS % 0.1 % (0-4.5); HEMATOCRIT 25.7 % (32.4-45.2); HEMOGLOBIN 8.1 GM/dL (10.7-15.3); MCH 30.4 pg (25.7-33.7); MCHC 31.6 g/dl (32.0-36.0); MEAN CELL VOLUME 96.2 fl (80-96); MEAN PLT VOLUME 8.2 fl (7.5-11.1); MONO % 4.7 % (3.8-10.2); NEUT % 81.8 % (42.8-82.8); PLATELET COUNT 559 10^3/uL (134-434); RBC 2.67 M/mm3 (3.60-5.2); RDW 17.6 % (11.6-15.6); WHITE BLOOD COUNT 12.2 K/mm3 (4.0-10.0)
[2021-05-11 12:23] LABS: CALCIUM 8.6 mg/dL (8.5-10.1)
[2021-05-11 12:24] LABS: BLOOD UREA NITROGEN 34.5 mg/dL (7-18)
[2021-05-11 12:27] LABS: CREATININE 0.9 mg/dL (0.55-1.3)
[2021-05-11] MEDS: DAPTOMYCIN 400 MG in SODIUM CHLORIDE 50 ML IVPB SCH (13:39)
[2021-05-11] MEDS ORDERED: INSULIN (NOVOLOG) ASPART 100 UNITS/ML 10ML VIAL ONE (17:55)
[2021-05-12] MEDS ORDERED: PIPERACILLIN/TAZOBACTAM 3.375 GM VIAL IVPB ONE ×3 (02:29→16:55)
[2021-05-12] MEDS ORDERED: DEXTROSE 5%-WATER - 50 ML IVPB ONE ×3 (02:30→16:55)
[2021-05-12] MEDS: PIPERACILLIN/TAZOB 3.375 GM 3.375 GM in DEXTROSE 5%-WATER - 50 ML IVPB SCH ×3 (02:31→17:00)
[2021-05-12] MEDS: INSULIN SLIDING SCALE (NOVOLOG) 1 VIAL SQ SCH ×4 (02:38→21:56)
[2021-05-12] MEDS: INSULIN (LEVEMIR) 100 UNITS/ML UNITS SQ SCH (06:28)
[2021-05-12] MEDS: BANATROL PLUS POWDER PACKET GT SCH ×3 (06:28→22:34)
[2021-05-12] MEDS: LEVOTHYROXINE NA 50 MCG TABLET (FP) PO SCH (06:46)
[2021-05-12] MEDS: PANTOPRAZOLE SODIUM 40 MG VIAL IVPUSH SCH (09:31)
[2021-05-12] MEDS: MULTIVIT-MINERALS ORAL LIQUID GT SCH (09:31)
[2021-05-12] MEDS: ATENOLOL 25 MG TABLET (FP) PEG SCH (09:31)
[2021-05-12] MEDS: ASCORBIC ACID 500 MG TABLET (FP) GT SCH ×2 (09:31→22:34)
[2021-05-12] MEDS: APIXABAN 2.5 MG TABLET GT SCH ×2 (09:31→22:34)
[2021-05-12] MEDS: AMINO ACIDS/PROTEIN HYDROLYS 30 ML LIQUID.PKT PO SCH ×2 (09:31→16:58)
[2021-05-12] MEDS: COLLAGENASE CLOSTRIDIUM HIST. 30 GRAMS TUBE TP SCH (09:59)
[2021-05-12] MEDS: FLUTICASONE PROP 0.05% 16 GM NASAL SPRAY NS SCH ×2 (09:59→22:34)
[2021-05-12 10:09] LABS: HEMATOCRIT 25.5 % (32.4-45.2); HEMOGLOBIN 7.6 GM/dL (10.7-15.3); MCH 30.5 pg (25.7-33.7); MCHC 29.8 g/dl (32.0-36.0); MEAN CELL VOLUME 102.2 fl (80-96); MEAN PLT VOLUME 7.7 fl (7.5-11.1); PLATELET COUNT 508 10^3/uL (134-434); RBC 2.49 M/mm3 (3.60-5.2); WHITE BLOOD COUNT 14.8 K/mm3 (4.0-10.0)
[2021-05-12] MEDS ORDERED: LORazepam 2 MG/ML SDV VIAL IVPUSH ONE (10:57)
[2021-05-12 11:09] LABS: CALCIUM 8.9 mg/dL (8.5-10.1)
[2021-05-12 11:10] LABS: BLOOD UREA NITROGEN 44.3 mg/dL (7-18)
[2021-05-12 11:13] LABS: CREATININE 1.1 mg/dL (0.55-1.3)
[2021-05-12 12:03] LABS: ANISOCYTOSIS 2+; MACROCYTOSIS 2+; PLATELET ESTIMATE INCREASED
[2021-05-12] MEDS: DAPTOMYCIN 400 MG in SODIUM CHLORIDE 50 ML IVPB SCH (13:17)
[2021-05-12] MEDS ORDERED: ALBUTEROL SO4 2.5/IPRATROPIUM 0.5 INH SOL 3 ML VIAL.NEB. NEB ONE (23:09)
[2021-05-12 23:31] LABS: ARTERIAL BLD GAS O2 SATURATION 92.8 % (95-98); ARTERIAL BLOOD GAS BASE EXCESS -9.8 mmol/L (-2-2); ARTERIAL BLOOD GAS PO2 71.2 mmHg (80-100); ARTERIAL BLOOD GAS pH 7.291 (7.350-7.450)
[2021-05-12 23:32] LABS: ALLENS TEST POSITIVE
[2021-05-13] MEDS ORDERED: PIPERACILLIN/TAZOBACTAM 3.375 GM VIAL IVPB ONE ×2 (02:06→08:54)
[2021-05-13] MEDS ORDERED: DEXTROSE 5%-WATER - 50 ML IVPB ONE ×2 (02:06→08:54)
[2021-05-13] MEDS: PIPERACILLIN/TAZOB 3.375 GM 3.375 GM in DEXTROSE 5%-WATER - 50 ML IVPB SCH ×2 (02:11→09:32)
[2021-05-13] MEDS: INSULIN SLIDING SCALE (NOVOLOG) 1 VIAL SQ SCH ×4 (05:33→20:28)
[2021-05-13] MEDS: BANATROL PLUS POWDER PACKET GT SCH ×3 (06:22→22:52)
[2021-05-13] MEDS: LEVOTHYROXINE NA 50 MCG TABLET (FP) PO SCH (06:22)
[2021-05-13] MEDS: INSULIN (LEVEMIR) 100 UNITS/ML UNITS SQ SCH (06:32)
[2021-05-13] MEDS: AMINO ACIDS/PROTEIN HYDROLYS 30 ML LIQUID.PKT PO SCH ×2 (08:58→17:24)
[2021-05-13] MEDS: MULTIVIT-MINERALS ORAL LIQUID GT SCH (09:32)
[2021-05-13] MEDS: PANTOPRAZOLE SODIUM 40 MG VIAL IVPUSH SCH (09:32)
[2021-05-13] MEDS: ATENOLOL 25 MG TABLET (FP) PEG SCH (09:32)
[2021-05-13] MEDS: ASCORBIC ACID 500 MG TABLET (FP) GT SCH ×2 (09:32→22:54)
[2021-05-13] MEDS: APIXABAN 2.5 MG TABLET GT SCH ×2 (09:32→22:54)
[2021-05-13] MEDS: FLUTICASONE PROP 0.05% 16 GM NASAL SPRAY NS SCH ×2 (09:33→22:53)
[2021-05-13] MEDS: COLLAGENASE CLOSTRIDIUM HIST. 30 GRAMS TUBE TP SCH (09:33)
[2021-05-13] MEDS ORDERED: ROCURONIUM BROMIDE 50 MG/5 ML VIAL IVPUSH ONE (11:35)
[2021-05-13] MEDS ORDERED: ETOMIDATE 40 MG/20 ML VIAL IVPUSH ONE (11:36)
[2021-05-13] MEDS ORDERED: ALBUTEROL SO4 0.083% IH SOL 2.5 MG/3 ML VIAL.NEB. NEB PRN (11:36)
[2021-05-13] MEDS ORDERED: ALBUTEROL SO4 0.083% IH SOL 2.5 MG/3 ML VIAL.NEB. NEB ONE (11:37)
[2021-05-13 14:27] LABS: ALLENS TEST POSITIVE; ARTERIAL BLD GAS O2 SATURATION 91.2 % (95-98); ARTERIAL BLOOD GAS BASE EXCESS -16.3 mmol/L (-2-2); ARTERIAL BLOOD GAS PO2 86.1 mmHg (80-100); ARTERIAL BLOOD GAS pH 7.033 (7.350-7.450)
[2021-05-13 14:28] LABS: VENT MODE AC; VENT RATE 12
[2021-05-13] MEDS ORDERED: SODIUM BICARBONATE 8.4% 50 MEQ/50 ML DISP.SYRIN IVPUSH ONE (16:04)
[2021-05-13 16:35] LABS: HEMATOCRIT 26.9 % (32.4-45.2); HEMOGLOBIN 8.2 GM/dL (10.7-15.3); MCH 29.9 pg (25.7-33.7); MCHC 30.6 g/dl (32.0-36.0); MEAN CELL VOLUME 97.8 fl (80-96); PLATELET COUNT 596 10^3/uL (134-434); RBC 2.75 M/mm3 (3.60-5.2); RDW 18.6 % (11.6-15.6); WHITE BLOOD COUNT 16.6 K/mm3 (4.0-10.0)
[2021-05-13 16:43] LABS: INR 1.45 (0.83-1.09); PROTHROMBIN TIME (PATIENT) 16.7 SEC (9.7-13.0)
[2021-05-13 16:45] LABS: ACTIVATED PTT 29.3 SECONDS (25.2-36.5)
[2021-05-13 16:50] LABS: ARTERIAL BLD GAS O2 SATURATION 91.5 % (95-98); ARTERIAL BLOOD GAS BASE EXCESS -15.2 mmol/L (-2-2); ARTERIAL BLOOD GAS PO2 77.7 mmHg (80-100)
[2021-05-13 16:53] LABS: ALLENS TEST POSITIVE
[2021-05-13 16:54] LABS: VENT MODE A/C; VENT RATE 20
[2021-05-13 16:55] LABS: ARTERIAL BLOOD GAS pH 7.144 (7.350-7.450)
[2021-05-13 17:02] LABS: CALCIUM 8.5 mg/dL (8.5-10.1)
[2021-05-13 17:03] LABS: ALBUMIN 1.2 g/dl (3.4-5.0); BLOOD UREA NITROGEN 48.8 mg/dL (7-18)
[2021-05-13] MEDS ORDERED: MEROPENEM 1 GM VIAL (RESTRICTED TO ID) IVPB ONE (17:03)
[2021-05-13] MEDS ORDERED: DEXTROSE 5%-WATER 100 ML IVPB ONE (17:03)
[2021-05-13 17:06] LABS: CREATININE 1.3 mg/dL (0.55-1.3)
[2021-05-13 17:07] LABS: BILIRUBIN,TOTAL 0.2 mg/dL (0.2-1); TOT PROT 6.4 g/dl (6.4-8.2)
[2021-05-13] MEDS: DEXTROSE 5%-WATER - 1,000 ML with SODIUM BICARBONATE 8.4% - 150 MEQ IV SCH (17:15)
[2021-05-13] MEDS: VANCOMYCIN 1 GRAM (PRE-DOCKED) 1,000 MG/250 ML BAG IVPB SCH (17:15)
[2021-05-13] MEDS: MEROPENEM 1 GM in DEXTROSE 5%-WATER 100 ML IVPB SCH (17:15)
[2021-05-13 17:23] LABS: LACTIC ACID 2.8 mmol/L (0.4-2.0)
[2021-05-13 17:47] LABS: ANISOCYTOSIS 1+; MACROCYTOSIS 1+; PLATELET ESTIMATE INCREASED
[2021-05-13] MEDS: DAPTOMYCIN 400 MG in SODIUM CHLORIDE 50 ML IVPB SCH (17:51)
[2021-05-13] MEDS: DEXMEDETOMIDINE IN 0.9 % NACL 400 MCG/100 ML VIAL IVPB SCH (18:40)
[2021-05-13] MEDS ORDERED: LACTATED RINGERS SOLUTION 1,000 ML/1,000 ML INFUS.BAG IV STA ×2 (20:19→20:23)
[2021-05-13 20:46] LABS: ARTERIAL BLD GAS O2 SATURATION 94.5 % (95-98); ARTERIAL BLOOD GAS BASE EXCESS -11.4 mmol/L (-2-2); ARTERIAL BLOOD GAS PO2 81.5 mmHg (80-100); ARTERIAL BLOOD GAS pH 7.255 (7.350-7.450)
[2021-05-13 20:49] LABS: VENT MODE V A/C; VENT RATE 16
[2021-05-13] MEDS: NOREPINEPHRINE BITARTRATE 16,000 MCG in DEXTROSE 5%-WATER - 484 ML IVPB SCH (21:12)
[2021-05-14] MEDS: DOPAMINE 400 MG/D5W - 400,000 MCG/250 ML INFUS.BAG IVPB SCH (00:45)
[2021-05-14] MEDS ORDERED: POTASSIUM PHOSPHATE 15 MM in DEXTROSE 5%-WATER - 100 ML IVPB ONE (01:30)
[2021-05-14 01:51] LABS: LACTIC ACID 2.7 mmol/L (0.4-2.0)
[2021-05-14 02:17] LABS: CHLORIDE 113 mmol/L (98-107); SODIUM 145 mmol/L (136-145)
[2021-05-14 02:20] LABS: BLOOD UREA NITROGEN 48.9 mg/dL (7-18); CO2 19 mmol/L (21-32); GLUCOSE,RANDOM 279 mg/dL (74-106)
[2021-05-14 02:23] LABS: CREATININE 1.3 mg/dL (0.55-1.3); SGOT/AST 28 U/L (15-37); SGPT/ALT 17 U/L (13-61)
[2021-05-14 02:24] LABS: TOT PROT 5.1 g/dl (6.4-8.2)
[2021-05-14 02:25] LABS: ALBUMIN 0.9 g/dl (3.4-5.0); ALK PHOS 84 U/L (45-117); ANION GAP 13 MMOL/L (8-16); BILIRUBIN,TOTAL 0.2 mg/dL (0.2-1); CALCIUM 7.2 mg/dL (8.5-10.1)
[2021-05-14] MEDS ORDERED: DEXTROSE 5%-WATER 100 ML IVPB ONE ×2 (03:18→15:32)
[2021-05-14] MEDS ORDERED: MEROPENEM 1 GM VIAL (RESTRICTED TO ID) IVPB ONE ×2 (03:18→15:32)
[2021-05-14] MEDS: INSULIN SLIDING SCALE (NOVOLOG) 1 VIAL SQ SCH ×4 (03:31→21:11)
[2021-05-14] MEDS: MEROPENEM 1 GM in DEXTROSE 5%-WATER 100 ML IVPB SCH ×2 (03:31→15:53)
[2021-05-14] MEDS: POTASSIUM CHLORIDE 20 MEQ PREMIX IVPB 100 ML IVPB SCH ×3 (03:35→07:48)
[2021-05-14] MEDS: DEXTROSE 5%-WATER - 1,000 ML with SODIUM BICARBONATE 8.4% - 150 MEQ IV SCH ×2 (04:21→18:03)
[2021-05-14] MEDS: INSULIN (LEVEMIR) 100 UNITS/ML UNITS SQ SCH (06:17)
[2021-05-14] MEDS: BANATROL PLUS POWDER PACKET GT SCH ×3 (06:19→22:35)
[2021-05-14] MEDS: LEVOTHYROXINE NA 50 MCG TABLET (FP) PO SCH (06:20)
[2021-05-14 07:44] LABS: HEMATOCRIT 24.2 % (32.4-45.2); HEMOGLOBIN 8.1 GM/dL (10.7-15.3); MCH 31.4 pg (25.7-33.7); MCHC 33.3 g/dl (32.0-36.0); MEAN CELL VOLUME 94.4 fl (80-96); MEAN PLT VOLUME 7.7 fl (7.5-11.1); PLATELET COUNT 452 10^3/uL (134-434); RBC 2.56 M/mm3 (3.60-5.2); RDW 18.5 % (11.6-15.6); WHITE BLOOD COUNT 4.2 K/mm3 (4.0-10.0)
[2021-05-14 07:55] LABS: ALBUMIN 0.9 g/dl (3.4-5.0); BLOOD UREA NITROGEN 48.9 mg/dL (7-18); CALCIUM 7.5 mg/dL (8.5-10.1); MAGNESIUM 1.6 mg/dL (1.8-2.4)
[2021-05-14 07:58] LABS: CREATININE 1.3 mg/dL (0.55-1.3)
[2021-05-14 08:00] LABS: BILIRUBIN,TOTAL 0.2 mg/dL (0.2-1); TOT PROT 4.9 g/dl (6.4-8.2)
[2021-05-14 08:06] LABS: LACTIC ACID 2.7 mmol/L (0.4-2.0)
[2021-05-14] MEDS: COLLAGENASE CLOSTRIDIUM HIST. 30 GRAMS TUBE TP SCH (09:50)
[2021-05-14 09:58] LABS: ANISOCYTOSIS 0; HELMET CELLS 0; HOWELL-JOLLY BODIES 0; MACROCYTOSIS 0; OVALOCYTE 0; PLATELET ESTIMATE NORMAL; ROULEAU 0; SICKELED CELLS 0; TARGET CELLS 0; TEAR DROP CELLS 0; TOXIC GRANULATION 0
[2021-05-14] MEDS: HYDROCORTISONE SOD SUCCINATE 100 MG/2 ML VIAL IVPUSH SCH ×2 (10:09→18:03)
[2021-05-14] MEDS: FENTANYL NS IVPB 500 MCG/100 ML BAG IVPB SCH (10:09)
[2021-05-14] MEDS: PANTOPRAZOLE SODIUM 40 MG VIAL IVPUSH SCH (10:09)
[2021-05-14] MEDS: AMINO ACIDS/PROTEIN HYDROLYS 30 ML LIQUID.PKT PO SCH ×2 (10:35→17:21)
[2021-05-14] MEDS: MULTIVIT-MINERALS ORAL LIQUID GT SCH (10:36)
[2021-05-14] MEDS: APIXABAN 2.5 MG TABLET GT SCH ×2 (10:36→22:34)
[2021-05-14] MEDS: ATENOLOL 25 MG TABLET (FP) PEG SCH (10:36)
[2021-05-14] MEDS: FLUTICASONE PROP 0.05% 16 GM NASAL SPRAY NS SCH ×2 (10:36→22:34)
[2021-05-14] MEDS: ASCORBIC ACID 500 MG TABLET (FP) GT SCH ×2 (10:37→22:34)
[2021-05-14] MEDS: DEXMEDETOMIDINE IN 0.9 % NACL 400 MCG/100 ML VIAL IVPB SCH ×2 (14:49→22:52)
[2021-05-14] MEDS: VANCOMYCIN 1 GRAM (PRE-DOCKED) 1,000 MG/250 ML BAG IVPB SCH (15:45)
[2021-05-14] MEDS: NOREPINEPHRINE BITARTRATE 16,000 MCG in DEXTROSE 5%-WATER - 484 ML IVPB SCH (21:00)
[2021-05-15] MEDS: DOPAMINE 400 MG/D5W - 400,000 MCG/250 ML INFUS.BAG IVPB SCH (00:45)
[2021-05-15] MEDS ORDERED: DEXTROSE 5%-WATER 100 ML IVPB ONE ×2 (01:18→18:17)
[2021-05-15] MEDS ORDERED: MEROPENEM 1 GM VIAL (RESTRICTED TO ID) IVPB ONE ×2 (01:18→18:16)
[2021-05-15] MEDS: HYDROCORTISONE SOD SUCCINATE 100 MG/2 ML VIAL IVPUSH SCH ×3 (01:58→17:35)
[2021-05-15] MEDS: INSULIN SLIDING SCALE (NOVOLOG) 1 VIAL SQ SCH ×4 (02:05→20:26)
[2021-05-15] MEDS: MEROPENEM 1 GM in DEXTROSE 5%-WATER 100 ML IVPB SCH ×2 (02:55→18:21)
[2021-05-15] MEDS: DEXTROSE 5%-WATER - 1,000 ML with SODIUM BICARBONATE 8.4% - 150 MEQ IV SCH (06:26)
[2021-05-15] MEDS: BANATROL PLUS POWDER PACKET GT SCH ×3 (06:27→21:37)
[2021-05-15] MEDS: INSULIN (LEVEMIR) 100 UNITS/ML UNITS SQ SCH (06:31)
[2021-05-15 06:57] LABS: HEMATOCRIT 23.8 % (32.4-45.2); HEMOGLOBIN 7.7 GM/dL (10.7-15.3); MCH 30.4 pg (25.7-33.7); MCHC 32.5 g/dl (32.0-36.0); MEAN CELL VOLUME 93.6 fl (80-96); MEAN PLT VOLUME 8.2 fl (7.5-11.1); PLATELET COUNT 397 10^3/uL (134-434); RBC 2.54 M/mm3 (3.60-5.2); RDW 18.2 % (11.6-15.6); WHITE BLOOD COUNT 14.2 K/mm3 (4.0-10.0)
[2021-05-15 07:22] LABS: CALCIUM 7.1 mg/dL (8.5-10.1)
[2021-05-15 07:23] LABS: BLOOD UREA NITROGEN 50.6 mg/dL (7-18); MAGNESIUM 1.7 mg/dL (1.8-2.4)
[2021-05-15 07:26] LABS: CREATININE 1.5 mg/dL (0.55-1.3); PHOSPHOROUS 7.1 mg/dL (2.5-4.9)
[2021-05-15 07:27] LABS: BILIRUBIN,TOTAL 0.2 mg/dL (0.2-1)
[2021-05-15 07:28] LABS: TOT PROT 5.2 g/dl (6.4-8.2)
[2021-05-15] MEDS: LEVOTHYROXINE NA 50 MCG TABLET (FP) PO SCH (07:36)
[2021-05-15] MEDS: DEXMEDETOMIDINE IN 0.9 % NACL 400 MCG/100 ML VIAL IVPB SCH ×2 (08:38→18:25)
[2021-05-15] MEDS: PANTOPRAZOLE SODIUM 40 MG VIAL IVPUSH SCH (09:39)
[2021-05-15] MEDS: APIXABAN 2.5 MG TABLET GT SCH ×2 (09:40→21:37)
[2021-05-15] MEDS: MULTIVIT-MINERALS ORAL LIQUID GT SCH (09:40)
[2021-05-15] MEDS: FLUTICASONE PROP 0.05% 16 GM NASAL SPRAY NS SCH ×2 (09:40→21:37)
[2021-05-15] MEDS: ASCORBIC ACID 500 MG TABLET (FP) GT SCH ×2 (09:41→21:37)
[2021-05-15] MEDS: AMINO ACIDS/PROTEIN HYDROLYS 30 ML LIQUID.PKT PO SCH ×2 (09:41→17:35)
[2021-05-15] MEDS: ATENOLOL 25 MG TABLET (FP) PEG SCH (09:41)
[2021-05-15] MEDS: COLLAGENASE CLOSTRIDIUM HIST. 30 GRAMS TUBE TP SCH (09:41)
[2021-05-15] MEDS: FENTANYL NS IVPB 500 MCG/100 ML BAG IVPB SCH ×2 (09:45→14:07)
[2021-05-15] MEDS ORDERED: MAGNESIUM 2GM/50ML STERILE WATER IVPB IVPB ONE (09:45)
[2021-05-15 10:09] LABS: ANISOCYTOSIS 0; HELMET CELLS 0; HOWELL-JOLLY BODIES 0; MACROCYTOSIS 0; OVALOCYTE 0; PLATELET ESTIMATE NORMAL; ROULEAU 0; SICKELED CELLS 0; TARGET CELLS 0; TEAR DROP CELLS 0; TOXIC GRANULATION 0
[2021-05-15 11:25] LABS: ARTERIAL BLD GAS O2 SATURATION 97.3 % (95-98); ARTERIAL BLOOD GAS BASE EXCESS -3.8 mmol/L (-2-2); ARTERIAL BLOOD GAS PO2 101.2 mmHg (80-100); ARTERIAL BLOOD GAS pH 7.342 (7.350-7.450)
[2021-05-15 11:27] LABS: ALLENS TEST POSITIVE; VENT MODE AC; VENT RATE 24
[2021-05-15] MEDS: VANCOMYCIN 1 GRAM (PRE-DOCKED) 1,000 MG/250 ML BAG IVPB SCH (15:22)
[2021-05-15] MEDS: SODIUM BICARBONATE 8.4% - 150 MEQ in DEXTROSE 5%-WATER - 1,000 ML IV SCH (17:34)
[2021-05-15] MEDS: NOREPINEPHRINE BITARTRATE 16,000 MCG in DEXTROSE 5%-WATER - 484 ML IVPB SCH (21:03)
[2021-05-16] MEDS ORDERED: MEROPENEM 1 GM VIAL (RESTRICTED TO ID) IVPB ONE (02:57)
[2021-05-16] MEDS ORDERED: DEXTROSE 5%-WATER 100 ML IVPB ONE (02:57)
[2021-05-16] MEDS: HYDROCORTISONE SOD SUCCINATE 100 MG/2 ML VIAL IVPUSH SCH ×3 (03:02→17:12)
[2021-05-16] MEDS: INSULIN SLIDING SCALE (NOVOLOG) 1 VIAL SQ SCH ×5 (03:13→23:59)
[2021-05-16] MEDS: MEROPENEM 1 GM in DEXTROSE 5%-WATER 100 ML IVPB SCH ×2 (03:49→17:22)
[2021-05-16] MEDS: SODIUM BICARBONATE 8.4% - 150 MEQ in DEXTROSE 5%-WATER - 1,000 ML IV SCH ×3 (04:55→18:42)
[2021-05-16 06:15] LABS: ARTERIAL BLD GAS O2 SATURATION 82.4 % (95-98); ARTERIAL BLOOD GAS BASE EXCESS -1.3 mmol/L (-2-2); ARTERIAL BLOOD GAS PO2 48.9 mmHg (80-100); ARTERIAL BLOOD GAS pH 7.348 (7.350-7.450)
[2021-05-16 06:34] LABS: ALLENS TEST POSITIVE; VENT MODE A/C
[2021-05-16 06:35] LABS: VENT RATE 24
[2021-05-16] MEDS: INSULIN (LEVEMIR) 100 UNITS/ML UNITS SQ SCH (06:42)
[2021-05-16] MEDS: BANATROL PLUS POWDER PACKET GT SCH ×3 (06:43→23:50)
[2021-05-16] MEDS: LEVOTHYROXINE NA 50 MCG TABLET (FP) PO SCH ×2 (06:43→10:30)
[2021-05-16] MEDS: DOPAMINE 400 MG/D5W - 400,000 MCG/250 ML INFUS.BAG IVPB SCH (06:44)
[2021-05-16] MEDS ORDERED: MIDAZOLAM HCL 2 MG/2 ML SINGLE DOSE VIAL IVPUSH ONE (07:11)
[2021-05-16 07:51] LABS: HEMATOCRIT 22.6 % (32.4-45.2); HEMOGLOBIN 7.6 GM/dL (10.7-15.3); MCH 31.1 pg (25.7-33.7); MCHC 33.7 g/dl (32.0-36.0); MEAN CELL VOLUME 92.3 fl (80-96); MEAN PLT VOLUME 8.2 fl (7.5-11.1); PLATELET COUNT 339 10^3/uL (134-434); RBC 2.45 M/mm3 (3.60-5.2); WHITE BLOOD COUNT 13.4 K/mm3 (4.0-10.0)
[2021-05-16 08:02] LABS: CHLORIDE 95 mmol/L (98-107); SODIUM 135 mmol/L (136-145)
[2021-05-16 08:10] LABS: GLUCOSE,RANDOM 197 mg/dL (74-106); PHOSPHOROUS 6.4 mg/dL (2.5-4.9); SGPT/ALT 14 U/L (13-61)
[2021-05-16 08:11] LABS: ALBUMIN 0.9 g/dl (3.4-5.0)
[2021-05-16 08:12] LABS: BILIRUBIN,TOTAL 0.2 mg/dL (0.2-1); TOT PROT 4.9 g/dl (6.4-8.2)
[2021-05-16 08:13] LABS: ALK PHOS 93 U/L (45-117)
[2021-05-16 08:14] LABS: ANION GAP 11 MMOL/L (8-16); CO2 28 mmol/L (21-32); CREATININE 1.7 mg/dL (0.55-1.3); MAGNESIUM 2.1 mg/dL (1.8-2.4); SGOT/AST 14 U/L (15-37)
[2021-05-16 08:17] LABS: CALCIUM 6.8 mg/dL (8.5-10.1)
[2021-05-16] MEDS: APIXABAN 2.5 MG TABLET GT SCH ×2 (10:09→23:50)
[2021-05-16] MEDS: PANTOPRAZOLE SODIUM 40 MG VIAL IVPUSH SCH (10:09)
[2021-05-16] MEDS: ASCORBIC ACID 500 MG TABLET (FP) GT SCH ×2 (10:09→23:51)
[2021-05-16] MEDS: AMINO ACIDS/PROTEIN HYDROLYS 30 ML LIQUID.PKT PO SCH ×2 (10:09→17:12)
[2021-05-16] MEDS: FLUTICASONE PROP 0.05% 16 GM NASAL SPRAY NS SCH ×2 (10:13→23:51)
[2021-05-16] MEDS: ATENOLOL 25 MG TABLET (FP) PEG SCH (10:13)
[2021-05-16] MEDS: COLLAGENASE CLOSTRIDIUM HIST. 30 GRAMS TUBE TP SCH (10:13)
[2021-05-16] MEDS: MULTIVIT-MINERALS ORAL LIQUID GT SCH (10:30)
[2021-05-16] MEDS: DEXMEDETOMIDINE IN 0.9 % NACL 400 MCG/100 ML VIAL IVPB SCH ×3 (10:30→18:53)
[2021-05-16] MEDS: FENTANYL NS IVPB 500 MCG/100 ML BAG IVPB SCH ×2 (11:43→17:11)
[2021-05-16] MEDS: MIDAZOLAM HCL 2 MG/2 ML SINGLE DOSE VIAL IVPUSH PRN ×2 (12:04→22:30)
[2021-05-16 12:31] LABS: ANISOCYTOSIS 1+; MACROCYTOSIS 0
[2021-05-16 12:32] LABS: PLATELET ESTIMATE NORMAL
[2021-05-16] MEDS ORDERED: METOCLOPRAMIDE HCL INJECTION 10 MG/2 ML VIAL IVPUSH PRN (13:24)
[2021-05-16] MEDS ORDERED: MAGNESIUM SULF 50% (8.12 MEQ/2 ML-1 GM VIAL) IVPB ONE (14:58)
[2021-05-16] MEDS: VANCOMYCIN 1 GRAM (PRE-DOCKED) 1,000 MG/250 ML BAG IVPB SCH (15:17)
[2021-05-17] MEDS ORDERED: DEXTROSE 5%-WATER 100 ML IVPB ONE ×2 (02:29→13:46)
[2021-05-17] MEDS ORDERED: MEROPENEM 1 GM VIAL (RESTRICTED TO ID) IVPB ONE ×2 (02:29→13:45)
[2021-05-17] MEDS: HYDROCORTISONE SOD SUCCINATE 100 MG/2 ML VIAL IVPUSH SCH ×3 (02:30→16:48)
[2021-05-17] MEDS: MEROPENEM 1 GM in DEXTROSE 5%-WATER 100 ML IVPB SCH ×2 (02:47→14:49)
[2021-05-17] MEDS: NOREPINEPHRINE BITARTRATE 16,000 MCG in DEXTROSE 5%-WATER - 484 ML IVPB SCH ×2 (03:19→21:06)
[2021-05-17] MEDS ORDERED: fentaNYL CITRATE 250 MCG/5 ML VIAL ONE (04:54)
[2021-05-17] MEDS: BANATROL PLUS POWDER PACKET GT SCH ×4 (06:11→21:36)
[2021-05-17] MEDS: INSULIN SLIDING SCALE (NOVOLOG) 1 VIAL SQ SCH ×5 (06:11→21:19)
[2021-05-17] MEDS: INSULIN (LEVEMIR) 100 UNITS/ML UNITS SQ SCH (06:11)
[2021-05-17] MEDS: LEVOTHYROXINE NA 50 MCG TABLET (FP) PO SCH (06:11)
[2021-05-17 06:25] LABS: ARTERIAL BLD GAS O2 SATURATION 97.5 % (95-98); ARTERIAL BLOOD GAS PO2 91.4 mmHg (80-100); ARTERIAL BLOOD GAS pH 7.494 (7.350-7.450)
[2021-05-17 06:32] LABS: ALLENS TEST POSITIVE; VENT MODE A/C; VENT RATE 24
[2021-05-17] MEDS: SODIUM BICARBONATE 8.4% - 150 MEQ in DEXTROSE 5%-WATER - 1,000 ML IV SCH ×2 (07:07→14:03)
[2021-05-17 07:23] LABS: HEMATOCRIT 19.8 % (32.4-45.2); MCHC 33.9 g/dl (32.0-36.0); MEAN CELL VOLUME 91.3 fl (80-96); MEAN PLT VOLUME 8.2 fl (7.5-11.1); PLATELET COUNT 227 10^3/uL (134-434); RBC 2.17 M/mm3 (3.60-5.2); RDW 17.9 % (11.6-15.6)
[2021-05-17 07:24] LABS: HEMOGLOBIN 6.7 GM/dL (10.7-15.3)
[2021-05-17 07:44] LABS: CHLORIDE 92 mmol/L (98-107); SODIUM 133 mmol/L (136-145)
[2021-05-17 07:48] LABS: ALBUMIN 0.8 g/dl (3.4-5.0); ANION GAP 12 MMOL/L (8-16); BLOOD UREA NITROGEN 50.5 mg/dL (7-18); CO2 29 mmol/L (21-32); GLUCOSE,RANDOM 134 mg/dL (74-106)
[2021-05-17 07:51] LABS: CREATININE 1.8 mg/dL (0.55-1.3); PHOSPHOROUS 6.6 mg/dL (2.5-4.9); SGOT/AST 16 U/L (15-37); SGPT/ALT 12 U/L (13-61)
[2021-05-17 07:53] LABS: BILIRUBIN,TOTAL 0.2 mg/dL (0.2-1); TOT PROT 4.4 g/dl (6.4-8.2)
[2021-05-17 07:54] LABS: ALK PHOS 87 U/L (45-117)
[2021-05-17 08:15] LABS: CALCIUM 6.5 mg/dL (8.5-10.1)
[2021-05-17 10:03] LABS: ANISOCYTOSIS 1+; MACROCYTOSIS 0
[2021-05-17 10:04] LABS: PLATELET ESTIMATE NORMAL
[2021-05-17] MEDS: PANTOPRAZOLE SODIUM 40 MG VIAL IVPUSH SCH (10:10)
[2021-05-17] MEDS: MULTIVIT-MINERALS ORAL LIQUID GT SCH (10:10)
[2021-05-17] MEDS: ASCORBIC ACID 500 MG TABLET (FP) GT SCH ×2 (10:10→21:11)
[2021-05-17] MEDS: AMINO ACIDS/PROTEIN HYDROLYS 30 ML LIQUID.PKT PO SCH ×2 (10:10→16:48)
[2021-05-17] MEDS: APIXABAN 2.5 MG TABLET GT SCH ×2 (10:10→21:11)
[2021-05-17] MEDS: ATENOLOL 25 MG TABLET (FP) PEG SCH (10:10)
[2021-05-17] MEDS: COLLAGENASE CLOSTRIDIUM HIST. 30 GRAMS TUBE TP SCH (10:11)
[2021-05-17] MEDS: FLUTICASONE PROP 0.05% 16 GM NASAL SPRAY NS SCH ×2 (10:11→21:07)
[2021-05-17] MEDS: POTASSIUM CHLORIDE 20 MEQ PREMIX IVPB 100 ML IVPB SCH ×3 (10:36→15:03)
[2021-05-17] MEDS: VANCOMYCIN 1 GRAM (PRE-DOCKED) 1,000 MG/250 ML BAG IVPB SCH (14:49)
[2021-05-17] MEDS: FENTANYL NS IVPB 500 MCG/100 ML BAG IVPB SCH (15:03)
[2021-05-17 17:58] LABS: HEMATOCRIT 27.2 % (32.4-45.2); HEMOGLOBIN 8.9 GM/dL (10.7-15.3); MCH 29.1 pg (25.7-33.7); MCHC 32.7 g/dl (32.0-36.0); MEAN CELL VOLUME 88.9 fl (80-96); MEAN PLT VOLUME 8.2 fl (7.5-11.1); PLATELET COUNT 251 10^3/uL (134-434); RBC 3.06 M/mm3 (3.60-5.2); RDW 17.7 % (11.6-15.6); WHITE BLOOD COUNT 14.7 K/mm3 (4.0-10.0)
[2021-05-17] MEDS ORDERED: FUROSEMIDE 40 MG/4 ML INJECTABLE VIAL IVPUSH ONE (18:44)
[2021-05-17] MEDS ORDERED: FUROSEMIDE 40 MG/4 ML INJECTABLE VIAL ONE (18:46)
[2021-05-17] MEDS: DEXMEDETOMIDINE IN 0.9 % NACL 400 MCG/100 ML VIAL IVPB SCH (18:49)
[2021-05-17 19:46] LABS: ANISOCYTOSIS 2+; MACROCYTOSIS 0
[2021-05-17] MEDS ORDERED: MIDAZOLAM HCL 2 MG/2 ML SINGLE DOSE VIAL ONE (20:24)
[2021-05-18] MEDS: DEXMEDETOMIDINE IN 0.9 % NACL 400 MCG/100 ML VIAL IVPB SCH (02:03)
[2021-05-18] MEDS: HYDROCORTISONE SOD SUCCINATE 100 MG/2 ML VIAL IVPUSH SCH ×3 (02:32→17:15)
[2021-05-18] MEDS: BANATROL PLUS POWDER PACKET GT SCH ×2 (05:35→14:31)
[2021-05-18 06:37] LABS: ARTERIAL BLD GAS O2 SATURATION 97.7 % (95-98); ARTERIAL BLOOD GAS BASE EXCESS 1.9 mmol/L (-2-2); ARTERIAL BLOOD GAS PO2 105.1 mmHg (80-100); ARTERIAL BLOOD GAS pH 7.376 (7.350-7.450)
[2021-05-18 06:38] LABS: ALLENS TEST POSITIVE; VENT MODE A/C; VENT RATE 16
[2021-05-18] MEDS: INSULIN SLIDING SCALE (NOVOLOG) 1 VIAL SQ SCH ×4 (06:58→21:38)
[2021-05-18] MEDS: LEVOTHYROXINE NA 50 MCG TABLET (FP) PO SCH (07:05)
[2021-05-18] MEDS: INSULIN (LEVEMIR) 100 UNITS/ML UNITS SQ SCH (07:05)
[2021-05-18] MEDS: MEROPENEM 1 GM in DEXTROSE 5%-WATER 100 ML IVPB SCH ×2 (08:09→16:45)
[2021-05-18 10:52] LABS: HEMATOCRIT 23.6 % (32.4-45.2); HEMOGLOBIN 7.8 GM/dL (10.7-15.3); MCH 29.9 pg (25.7-33.7); MCHC 33.2 g/dl (32.0-36.0); MEAN PLT VOLUME 8.7 fl (7.5-11.1); PLATELET COUNT 193 10^3/uL (134-434); RBC 2.62 M/mm3 (3.60-5.2); RDW 18.1 % (11.6-15.6); WHITE BLOOD COUNT 10.4 K/mm3 (4.0-10.0)
[2021-05-18 11:10] LABS: CALCIUM 7.3 mg/dL (8.5-10.1)
[2021-05-18 11:11] LABS: BLOOD UREA NITROGEN 62.9 mg/dL (7-18); MAGNESIUM 2.2 mg/dL (1.8-2.4)
[2021-05-18 11:14] LABS: CREATININE 2.1 mg/dL (0.55-1.3); PHOSPHOROUS 8.3 mg/dL (2.5-4.9)
[2021-05-18] MEDS: PANTOPRAZOLE SODIUM 40 MG VIAL IVPUSH SCH (11:44)
[2021-05-18] MEDS: AMINO ACIDS/PROTEIN HYDROLYS 30 ML LIQUID.PKT PO SCH ×2 (11:44→17:57)
[2021-05-18] MEDS: APIXABAN 2.5 MG TABLET GT SCH ×2 (11:51→21:38)
[2021-05-18] MEDS: ATENOLOL 25 MG TABLET (FP) PEG SCH (11:52)
[2021-05-18] MEDS: ASCORBIC ACID 500 MG TABLET (FP) GT SCH ×2 (11:52→21:39)
[2021-05-18] MEDS: COLLAGENASE CLOSTRIDIUM HIST. 30 GRAMS TUBE TP SCH (11:52)
[2021-05-18] MEDS: FENTANYL NS IVPB 500 MCG/100 ML BAG IVPB SCH (11:53)
[2021-05-18] MEDS: FLUTICASONE PROP 0.05% 16 GM NASAL SPRAY NS SCH ×2 (11:53→21:38)
[2021-05-18] MEDS: MULTIVIT-MINERALS ORAL LIQUID GT SCH (11:54)
[2021-05-18 12:49] LABS: ANISOCYTOSIS 1+; MACROCYTOSIS 0; OVALOCYTE 1+; TOXIC GRANULATION 1+
[2021-05-18 13:54] LABS: ALBUMIN 0.9 g/dl (3.4-5.0)
[2021-05-18 13:58] LABS: BILIRUBIN,TOTAL 0.2 mg/dL (0.2-1); TOT PROT 4.6 g/dl (6.4-8.2)
[2021-05-18] MEDS: AMINO ACIDS 4.25%/D5W 1,000 ML IV SCH (14:31)
[2021-05-18] MEDS ORDERED: MEROPENEM 1 GM VIAL (RESTRICTED TO ID) IVPB ONE (16:36)
[2021-05-18] MEDS ORDERED: DEXTROSE 5%-WATER 100 ML IVPB ONE (16:36)
[2021-05-18] MEDS: FUROSEMIDE INJECTION 100 MG in SODIUM CHLORIDE 40 ML IVPB SCH (16:45)
[2021-05-18] MEDS: FAT EMUL/SOY/MCT/OLIV/FISH OIL 250 ML IV SCH (21:39)
[2021-05-18] MEDS ORDERED: FAT EMULSION/OLIVE/SOY (CLINOLIPID) 250 ML EMULSION IV SCH (22:00)
[2021-05-19] MEDS: DEXMEDETOMIDINE IN 0.9 % NACL 400 MCG/100 ML VIAL IVPB SCH (02:36)
[2021-05-19] MEDS: NOREPINEPHRINE BITARTRATE 16,000 MCG in DEXTROSE 5%-WATER - 484 ML IVPB SCH ×2 (02:36→21:03)
[2021-05-19] MEDS: HYDROCORTISONE SOD SUCCINATE 100 MG/2 ML VIAL IVPUSH SCH ×3 (02:39→18:11)
[2021-05-19] MEDS ORDERED: MEROPENEM 1 GM VIAL (RESTRICTED TO ID) IVPB ONE ×2 (02:41→18:09)
[2021-05-19] MEDS ORDERED: DEXTROSE 5%-WATER 100 ML IVPB ONE ×2 (02:41→18:09)
[2021-05-19] MEDS: BANATROL PLUS POWDER PACKET GT SCH ×3 (06:57→21:03)
[2021-05-19] MEDS: MEROPENEM 1 GM in DEXTROSE 5%-WATER 100 ML IVPB SCH ×2 (06:57→18:11)
[2021-05-19] MEDS: INSULIN (LEVEMIR) 100 UNITS/ML UNITS SQ SCH (06:58)
[2021-05-19] MEDS: LEVOTHYROXINE NA 50 MCG TABLET (FP) PO SCH (06:58)
[2021-05-19 07:09] LABS: ARTERIAL BLOOD GAS BASE EXCESS -2.5 mmol/L (-2-2); ARTERIAL BLOOD GAS PO2 162.1 mmHg (80-100); ARTERIAL BLOOD GAS pH 7.358 (7.350-7.450)
[2021-05-19] MEDS: INSULIN SLIDING SCALE (NOVOLOG) 1 VIAL SQ SCH ×4 (07:11→21:04)
[2021-05-19 07:18] LABS: ALLENS TEST POSITIVE; VENT MODE A/C; VENT RATE 16
[2021-05-19 07:33] LABS: HEMATOCRIT 24.4 % (32.4-45.2); HEMOGLOBIN 8.1 GM/dL (10.7-15.3); MCH 30.1 pg (25.7-33.7); MCHC 33.2 g/dl (32.0-36.0); MEAN CELL VOLUME 90.5 fl (80-96); MEAN PLT VOLUME 8.7 fl (7.5-11.1); PLATELET COUNT 170 10^3/uL (134-434); RDW 17.5 % (11.6-15.6); WHITE BLOOD COUNT 7.4 K/mm3 (4.0-10.0)
[2021-05-19 07:48] LABS: PHOSPHOROUS 8.8 mg/dL (2.5-4.9)
[2021-05-19 07:49] LABS: ALBUMIN 0.9 g/dl (3.4-5.0); BLOOD UREA NITROGEN 69.1 mg/dL (7-18); CALCIUM 7.1 mg/dL (8.5-10.1); MAGNESIUM 2.1 mg/dL (1.8-2.4)
[2021-05-19 07:54] LABS: BILIRUBIN,TOTAL 0.2 mg/dL (0.2-1); CREATININE 2.3 mg/dL (0.55-1.3)
[2021-05-19 07:57] LABS: TOT PROT 4.7 g/dl (6.4-8.2)
[2021-05-19] MEDS: AMINO ACIDS/PROTEIN HYDROLYS 30 ML LIQUID.PKT PO SCH ×2 (09:01→18:11)
[2021-05-19] MEDS: FENTANYL NS IVPB 500 MCG/100 ML BAG IVPB SCH ×2 (09:01→14:03)
[2021-05-19] MEDS: MULTIVIT-MINERALS ORAL LIQUID GT SCH (09:02)
[2021-05-19] MEDS: FLUTICASONE PROP 0.05% 16 GM NASAL SPRAY NS SCH ×2 (09:03→21:03)
[2021-05-19] MEDS: PANTOPRAZOLE SODIUM 40 MG VIAL IVPUSH SCH (09:03)
[2021-05-19] MEDS: ASCORBIC ACID 500 MG TABLET (FP) GT SCH ×2 (09:04→21:05)
[2021-05-19] MEDS: FUROSEMIDE INJECTION 100 MG in SODIUM CHLORIDE 40 ML IVPB SCH ×2 (09:05→15:30)
[2021-05-19] MEDS: ATENOLOL 25 MG TABLET (FP) PEG SCH (09:06)
[2021-05-19] MEDS: APIXABAN 2.5 MG TABLET GT SCH ×2 (09:06→21:03)
[2021-05-19] MEDS: COLLAGENASE CLOSTRIDIUM HIST. 30 GRAMS TUBE TP SCH (09:08)
[2021-05-19 10:03] LABS: ANISOCYTOSIS 1+; MACROCYTOSIS 1+; PLATELET ESTIMATE NORMAL
[2021-05-19] MEDS: AMINO ACIDS 4.25%/D5W 1,000 ML IV SCH (16:07)
[2021-05-19] MEDS ORDERED: INSULIN (NOVOLOG) ASPART 100 UNITS/ML 10ML VIAL ONE (18:31)
[2021-05-19] MEDS: FAT EMUL/SOY/MCT/OLIV/FISH OIL 250 ML IV SCH (21:04)
[2021-05-20] MEDS: HYDROCORTISONE SOD SUCCINATE 100 MG/2 ML VIAL IVPUSH SCH ×3 (01:10→19:40)
[2021-05-20] MEDS ORDERED: MEROPENEM 1 GM VIAL (RESTRICTED TO ID) IVPB ONE ×2 (03:01→17:14)
[2021-05-20] MEDS ORDERED: DEXTROSE 5%-WATER 100 ML IVPB ONE ×2 (03:01→17:14)
[2021-05-20] MEDS: MEROPENEM 1 GM in DEXTROSE 5%-WATER 100 ML IVPB SCH ×2 (03:09→17:18)
[2021-05-20] MEDS: FENTANYL NS IVPB 500 MCG/100 ML BAG IVPB SCH ×2 (05:12)
[2021-05-20] MEDS: INSULIN SLIDING SCALE (NOVOLOG) 1 VIAL SQ SCH ×4 (06:15→21:39)
[2021-05-20] MEDS: BANATROL PLUS POWDER PACKET GT SCH ×3 (06:15→21:37)
[2021-05-20] MEDS: INSULIN (LEVEMIR) 100 UNITS/ML UNITS SQ SCH (06:16)
[2021-05-20] MEDS: LEVOTHYROXINE NA 50 MCG TABLET (FP) PO SCH (06:17)
[2021-05-20 07:15] LABS: HEMATOCRIT 24.3 % (32.4-45.2); HEMOGLOBIN 8.3 GM/dL (10.7-15.3); MCH 31.1 pg (25.7-33.7); MCHC 34.4 g/dl (32.0-36.0); MEAN CELL VOLUME 90.6 fl (80-96); MEAN PLT VOLUME 8.8 fl (7.5-11.1); PLATELET COUNT 153 10^3/uL (134-434); RBC 2.68 M/mm3 (3.60-5.2)
[2021-05-20 07:16] LABS: CHLORIDE 90 mmol/L (98-107); SODIUM 128 mmol/L (136-145)
[2021-05-20 07:20] LABS: ALBUMIN 0.8 g/dl (3.4-5.0); ANION GAP 13 MMOL/L (8-16); BLOOD UREA NITROGEN 77.9 mg/dL (7-18); CO2 25 mmol/L (21-32); GLUCOSE,RANDOM 217 mg/dL (74-106); MAGNESIUM 1.9 mg/dL (1.8-2.4)
[2021-05-20 07:23] LABS: CREATININE 2.5 mg/dL (0.55-1.3); PHOSPHOROUS 8.8 mg/dL (2.5-4.9); SGOT/AST 14 U/L (15-37); SGPT/ALT 15 U/L (13-61)
[2021-05-20 07:24] LABS: BILIRUBIN,TOTAL 0.7 mg/dL (0.2-1); TOT PROT 4.6 g/dl (6.4-8.2)
[2021-05-20 07:26] LABS: ALK PHOS 102 U/L (45-117)
[2021-05-20] MEDS ORDERED: METOLAZONE 5 MG TABLET PO ONE (07:26)
[2021-05-20 07:27] LABS: CALCIUM 6.8 mg/dL (8.5-10.1)
[2021-05-20] MEDS: COLLAGENASE CLOSTRIDIUM HIST. 30 GRAMS TUBE TP SCH (09:45)
[2021-05-20] MEDS: MULTIVIT-MINERALS ORAL LIQUID GT SCH (09:45)
[2021-05-20] MEDS: AMINO ACIDS/PROTEIN HYDROLYS 30 ML LIQUID.PKT PO SCH ×2 (09:45→17:19)
[2021-05-20 10:28] LABS: ANISOCYTOSIS 0; HELMET CELLS 0; HOWELL-JOLLY BODIES 0; MACROCYTOSIS 0; OVALOCYTE 0; ROULEAU 0; SICKELED CELLS 0; TARGET CELLS 0; TEAR DROP CELLS 0; TOXIC GRANULATION 0
[2021-05-20] MEDS: APIXABAN 2.5 MG TABLET GT SCH ×2 (11:01→21:37)
[2021-05-20] MEDS: LORazepam 2 MG/ML SDV VIAL IVPUSH PRN ×3 (11:01→22:20)
[2021-05-20] MEDS: ASCORBIC ACID 500 MG TABLET (FP) GT SCH ×2 (11:01→21:37)
[2021-05-20] MEDS: PANTOPRAZOLE SODIUM 40 MG VIAL IVPUSH SCH (11:01)
[2021-05-20] MEDS: FLUTICASONE PROP 0.05% 16 GM NASAL SPRAY NS SCH ×2 (11:02→21:37)
[2021-05-20] MEDS: ATENOLOL 25 MG TABLET (FP) PEG SCH (11:03)
[2021-05-20] MEDS: FUROSEMIDE INJECTION 100 MG in SODIUM CHLORIDE 40 ML IVPB SCH (17:19)
[2021-05-21] MEDS ORDERED: FENTANYL NS IVPB 500 MCG/100 ML BAG IVPB ONE (04:11)
[2021-05-21] MEDS ORDERED: MEROPENEM 1 GM VIAL (RESTRICTED TO ID) IVPB ONE ×2 (04:22→13:07)
[2021-05-21] MEDS ORDERED: DEXTROSE 5%-WATER 100 ML IVPB ONE ×2 (04:23→13:08)
[2021-05-21] MEDS: MEROPENEM 1 GM in DEXTROSE 5%-WATER 100 ML IVPB SCH ×2 (04:24→14:59)
[2021-05-21] MEDS: INSULIN (LEVEMIR) 100 UNITS/ML UNITS SQ SCH (06:25)
[2021-05-21] MEDS: LEVOTHYROXINE NA 50 MCG TABLET (FP) PO SCH (06:25)
[2021-05-21] MEDS: BANATROL PLUS POWDER PACKET GT SCH ×3 (06:25→21:40)
[2021-05-21] MEDS: INSULIN SLIDING SCALE (NOVOLOG) 1 VIAL SQ SCH ×4 (06:25→21:42)
[2021-05-21] MEDS: HYDROCORTISONE SOD SUCCINATE 100 MG/2 ML VIAL IVPUSH SCH ×2 (06:58→18:36)
[2021-05-21 07:43] LABS: EOS % 0.1 % (0-4.5); HEMATOCRIT 22.8 % (32.4-45.2); HEMOGLOBIN 7.7 GM/dL (10.7-15.3); LYMPH % 6.7 % (8-40); MCH 30.1 pg (25.7-33.7); MCHC 33.6 g/dl (32.0-36.0); MEAN CELL VOLUME 89.6 fl (80-96); MEAN PLT VOLUME 8.5 fl (7.5-11.1); NEUT % 89.2 % (42.8-82.8); PLATELET COUNT 146 10^3/uL (134-434); RBC 2.55 M/mm3 (3.60-5.2); RDW 16.7 % (11.6-15.6); WHITE BLOOD COUNT 6.8 K/mm3 (4.0-10.0)
[2021-05-21] MEDS ORDERED: NOREPINEPHRINE D5W PREMIX 16,000 MCG/500 ML BAG IVPB SCH (08:00)
[2021-05-21 08:09] LABS: CALCIUM 7.1 mg/dL (8.5-10.1)
[2021-05-21 08:10] LABS: ALBUMIN 0.8 g/dl (3.4-5.0); BLOOD UREA NITROGEN 85.6 mg/dL (7-18)
[2021-05-21 08:13] LABS: CREATININE 2.8 mg/dL (0.55-1.3)
[2021-05-21] MEDS: AMINO ACIDS/PROTEIN HYDROLYS 30 ML LIQUID.PKT PO SCH ×2 (08:13→17:02)
[2021-05-21 08:14] LABS: TOT PROT 4.1 g/dl (6.4-8.2)
[2021-05-21 08:15] LABS: BILIRUBIN,TOTAL 0.3 mg/dL (0.2-1)
[2021-05-21 08:38] LABS: PHOSPHOROUS 8.7 mg/dL (2.5-4.9)
[2021-05-21] MEDS: MULTIVIT-MINERALS ORAL LIQUID GT SCH (09:31)
[2021-05-21] MEDS: ATENOLOL 25 MG TABLET (FP) PEG SCH ×2 (09:32→17:04)
[2021-05-21] MEDS: COLLAGENASE CLOSTRIDIUM HIST. 30 GRAMS TUBE TP SCH (09:32)
[2021-05-21] MEDS: PANTOPRAZOLE SODIUM 40 MG VIAL IVPUSH SCH (09:32)
[2021-05-21] MEDS: ASCORBIC ACID 500 MG TABLET (FP) GT SCH ×2 (09:32→21:39)
[2021-05-21] MEDS: APIXABAN 2.5 MG TABLET GT SCH ×2 (09:32→21:39)
[2021-05-21] MEDS: FLUTICASONE PROP 0.05% 16 GM NASAL SPRAY NS SCH ×2 (09:40→21:40)
[2021-05-21] MEDS: LORazepam 2 MG/ML SDV VIAL IVPUSH PRN (15:22)
[2021-05-22] MEDS ORDERED: DEXTROSE 5%-WATER 100 ML IVPB ONE ×2 (01:11→14:52)
[2021-05-22] MEDS ORDERED: MEROPENEM 500 MG VIAL (RESTRICTED TO ID) IVPB ONE ×2 (01:11→14:52)
[2021-05-22] MEDS: MEROPENEM 500 MG in DEXTROSE 5%-WATER 100 ML IVPB SCH ×2 (02:21→15:14)
[2021-05-22] MEDS: BANATROL PLUS POWDER PACKET GT SCH ×3 (05:49→20:59)
[2021-05-22] MEDS: INSULIN (LEVEMIR) 100 UNITS/ML UNITS SQ SCH (06:04)
[2021-05-22] MEDS: LEVOTHYROXINE NA 50 MCG TABLET (FP) PO SCH (06:04)
[2021-05-22] MEDS: INSULIN SLIDING SCALE (NOVOLOG) 1 VIAL SQ SCH ×4 (06:05→20:59)
[2021-05-22 07:34] LABS: HEMATOCRIT 28.9 % (32.4-45.2); HEMOGLOBIN 9.6 GM/dL (10.7-15.3); MCH 29.9 pg (25.7-33.7); MCHC 33.1 g/dl (32.0-36.0); MEAN CELL VOLUME 90.5 fl (80-96); MEAN PLT VOLUME 8.9 fl (7.5-11.1); PLATELET COUNT 245 10^3/uL (134-434); RDW 16.9 % (11.6-15.6); WHITE BLOOD COUNT 11.8 K/mm3 (4.0-10.0)
[2021-05-22 07:44] LABS: CHLORIDE 89 mmol/L (98-107); SODIUM 127 mmol/L (136-145)
[2021-05-22 07:50] LABS: GLUCOSE,RANDOM 247 mg/dL (74-106)
[2021-05-22 07:52] LABS: CALCIUM 7.4 mg/dL (8.5-10.1)
[2021-05-22 07:53] LABS: ANION GAP 14 MMOL/L (8-16); CO2 24 mmol/L (21-32); MAGNESIUM 2.1 mg/dL (1.8-2.4); SGOT/AST 21 U/L (15-37); SGPT/ALT 15 U/L (13-61)
[2021-05-22 07:54] LABS: BILIRUBIN,TOTAL 0.3 mg/dL (0.2-1)
[2021-05-22] MEDS ORDERED: POTASSIUM CHLORIDE ORAL LIQUID 20 MEQ/15 ML PO ONE (08:30)
[2021-05-22 08:34] LABS: ALK PHOS 125 U/L (45-117)
[2021-05-22 08:40] LABS: PHOSPHOROUS 9.1 mg/dL (2.5-4.9)
[2021-05-22] MEDS: MULTIVIT-MINERALS ORAL LIQUID GT SCH (09:44)
[2021-05-22] MEDS: AMINO ACIDS/PROTEIN HYDROLYS 30 ML LIQUID.PKT PO SCH ×2 (09:44→17:20)
[2021-05-22] MEDS: PANTOPRAZOLE SODIUM 40 MG VIAL IVPUSH SCH (09:44)
[2021-05-22] MEDS: ASCORBIC ACID 500 MG TABLET (FP) GT SCH ×2 (09:44→20:59)
[2021-05-22] MEDS: ATENOLOL 25 MG TABLET (FP) PEG SCH (09:44)
[2021-05-22] MEDS: APIXABAN 2.5 MG TABLET GT SCH ×2 (09:44→20:59)
[2021-05-22] MEDS: COLLAGENASE CLOSTRIDIUM HIST. 30 GRAMS TUBE TP SCH (09:45)
[2021-05-22] MEDS: HYDROCORTISONE SOD SUCCINATE 100 MG/2 ML VIAL IVPUSH SCH ×2 (09:49→19:56)
[2021-05-22] MEDS: FLUTICASONE PROP 0.05% 16 GM NASAL SPRAY NS SCH ×2 (09:54→21:00)
[2021-05-22] MEDS: LORazepam 2 MG/ML SDV VIAL IVPUSH PRN ×2 (13:49→21:00)
[2021-05-22] MEDS: FUROSEMIDE INJECTION 100 MG in SODIUM CHLORIDE 40 ML IVPB SCH (17:20)
[2021-05-22] MEDS ORDERED: SODIUM CHLORIDE 1,000 ML IV SCH (20:00)
[2021-05-23] MEDS ORDERED: MEROPENEM 500 MG VIAL (RESTRICTED TO ID) IVPB ONE ×2 (02:44→15:06)
[2021-05-23] MEDS ORDERED: DEXTROSE 5%-WATER 100 ML IVPB ONE ×2 (02:45→15:06)
[2021-05-23] MEDS: MEROPENEM 500 MG in DEXTROSE 5%-WATER 100 ML IVPB SCH ×2 (03:02→15:05)
[2021-05-23] MEDS: BANATROL PLUS POWDER PACKET GT SCH ×3 (05:37→21:38)
[2021-05-23] MEDS: INSULIN SLIDING SCALE (NOVOLOG) 1 VIAL SQ SCH ×4 (06:01→21:51)
[2021-05-23] MEDS: LEVOTHYROXINE NA 50 MCG TABLET (FP) PO SCH (06:01)
[2021-05-23] MEDS: INSULIN (LEVEMIR) 100 UNITS/ML UNITS SQ SCH (06:01)
[2021-05-23 07:07] LABS: URINE APPEARANCE TURBID; URINE BILIRUBIN NEGATIVE (NEGATIVE); URINE COLOR YELLOW; URINE GLUCOSE (UA) 100 (NEGATIVE); URINE KETONE NEGATIVE (NEGATIVE)
[2021-05-23 07:08] LABS: URINE LEUK ESTERASE 4+ (NEGATIVE); URINE NITRITE NEGATIVE (NEGATIVE); URINE PROTEIN >=1000 (NEGATIVE); URINE UROBILINOGEN 0.2 mg/dL (0.2-1.0); URINE WBC 16670 /uL (0-25.8)
[2021-05-23 07:09] LABS: EPI CELLS 16 /uL (0-25.1); HYALINE CASTS 1206 /uL (0-3.1); URINE BACTERIA 196 /uL (0-1359)
[2021-05-23 07:43] LABS: URINE RBC 656 /uL (0-23.9)
[2021-05-23] MEDS: HYDROCORTISONE SOD SUCCINATE 100 MG/2 ML VIAL IVPUSH SCH ×2 (08:48→20:25)
[2021-05-23 09:18] LABS: HEMATOCRIT 27.9 % (32.4-45.2); HEMOGLOBIN 9.3 GM/dL (10.7-15.3); LYMPH % 1.4 % (8-40); MCH 29.9 pg (25.7-33.7); MCHC 33.3 g/dl (32.0-36.0); MEAN CELL VOLUME 89.7 fl (80-96); MEAN PLT VOLUME 8.4 fl (7.5-11.1); MONO % 0.7 % (3.8-10.2); NEUT % 97.9 % (42.8-82.8); PLATELET COUNT 239 10^3/uL (134-434); RBC 3.12 M/mm3 (3.60-5.2); RDW 16.7 % (11.6-15.6); WHITE BLOOD COUNT 14.8 K/mm3 (4.0-10.0)
[2021-05-23 09:42] LABS: CALCIUM 7.2 mg/dL (8.5-10.1)
[2021-05-23 09:43] LABS: ALBUMIN 0.9 g/dl (3.4-5.0); BLOOD UREA NITROGEN 97.3 mg/dL (7-18); MAGNESIUM 2.1 mg/dL (1.8-2.4)
[2021-05-23 09:46] LABS: CREATININE 3.1 mg/dL (0.55-1.3)
[2021-05-23 09:47] LABS: BILIRUBIN,TOTAL 0.3 mg/dL (0.2-1); TOT PROT 4.8 g/dl (6.4-8.2)
[2021-05-23] MEDS: APIXABAN 2.5 MG TABLET GT SCH ×2 (10:06→21:38)
[2021-05-23] MEDS: AMINO ACIDS/PROTEIN HYDROLYS 30 ML LIQUID.PKT PO SCH ×2 (10:06→17:20)
[2021-05-23] MEDS: FLUTICASONE PROP 0.05% 16 GM NASAL SPRAY NS SCH ×2 (10:07→21:38)
[2021-05-23] MEDS: COLLAGENASE CLOSTRIDIUM HIST. 30 GRAMS TUBE TP SCH (10:07)
[2021-05-23] MEDS: ATENOLOL 25 MG TABLET (FP) PEG SCH (10:07)
[2021-05-23] MEDS: PANTOPRAZOLE SODIUM 40 MG VIAL IVPUSH SCH (10:07)
[2021-05-23] MEDS: MULTIVIT-MINERALS ORAL LIQUID GT SCH (10:07)
[2021-05-23] MEDS: ASCORBIC ACID 500 MG TABLET (FP) GT SCH ×2 (10:07→21:38)
[2021-05-23 10:22] LABS: ANISOCYTOSIS 2+; MACROCYTOSIS 0
[2021-05-23 10:48] LABS: PHOSPHOROUS 8.9 mg/dL (2.5-4.9)
[2021-05-23] MEDS: FUROSEMIDE INJECTION 100 MG in SODIUM CHLORIDE 40 ML IVPB SCH ×2 (17:19→21:39)
[2021-05-23] MEDS ORDERED: SODIUM CHLORIDE 1,000 ML IV SCH (22:00)
[2021-05-24] MEDS ORDERED: VANCOMYCIN 250 MG/5 ML ORAL SOLUTION PO SCH
[2021-05-24] MEDS: VANCOMYCIN 250 MG/5 ML ORAL SOLUTION GT SCH ×5 (01:00→23:01)
[2021-05-24] MEDS: BANATROL PLUS POWDER PACKET GT SCH ×3 (05:08→22:40)
[2021-05-24] MEDS: INSULIN (LEVEMIR) 100 UNITS/ML UNITS SQ SCH (06:41)
[2021-05-24] MEDS: INSULIN SLIDING SCALE (NOVOLOG) 1 VIAL SQ SCH ×4 (06:42→22:50)
[2021-05-24 06:51] LABS: HEMOGLOBIN 8.5 GM/dL (10.7-15.3); MCH 29.6 pg (25.7-33.7); MCHC 32.6 g/dl (32.0-36.0); MEAN CELL VOLUME 90.9 fl (80-96); MEAN PLT VOLUME 8.7 fl (7.5-11.1); PLATELET COUNT 231 10^3/uL (134-434); RBC 2.86 M/mm3 (3.60-5.2); WHITE BLOOD COUNT 17.4 K/mm3 (4.0-10.0)
[2021-05-24 07:11] LABS: CHLORIDE 95 mmol/L (98-107); SODIUM 130 mmol/L (136-145)
[2021-05-24 07:24] LABS: ALBUMIN 0.8 g/dl (3.4-5.0); ANION GAP 13 MMOL/L (8-16); BLOOD UREA NITROGEN 94.2 mg/dL (7-18); CO2 22 mmol/L (21-32); GLUCOSE,RANDOM 192 mg/dL (74-106)
[2021-05-24 07:26] LABS: SGPT/ALT 13 U/L (13-61)
[2021-05-24 07:27] LABS: CREATININE 3.1 mg/dL (0.55-1.3); SGOT/AST 19 U/L (15-37)
[2021-05-24 07:28] LABS: ALK PHOS 95 U/L (45-117); BILIRUBIN,TOTAL 0.3 mg/dL (0.2-1); TOT PROT 4.2 g/dl (6.4-8.2)
[2021-05-24 07:47] LABS: CALCIUM 6.4 mg/dL (8.5-10.1)
[2021-05-24] MEDS: LEVOTHYROXINE NA 50 MCG TABLET (FP) PO SCH (07:54)
[2021-05-24 07:58] LABS: PHOSPHOROUS 8.5 mg/dL (2.5-4.9)
[2021-05-24] MEDS: HYDROCORTISONE SOD SUCCINATE 100 MG/2 ML VIAL IVPUSH SCH (07:58)
[2021-05-24] MEDS: AMINO ACIDS/PROTEIN HYDROLYS 30 ML LIQUID.PKT PO SCH ×2 (07:59→18:18)
[2021-05-24] MEDS: ASCORBIC ACID 500 MG TABLET (FP) GT SCH ×2 (09:42→22:40)
[2021-05-24] MEDS: PANTOPRAZOLE SODIUM 40 MG VIAL IVPUSH SCH (09:42)
[2021-05-24] MEDS: APIXABAN 2.5 MG TABLET GT SCH ×2 (09:42→22:40)
[2021-05-24] MEDS: MULTIVIT-MINERALS ORAL LIQUID GT SCH (09:42)
[2021-05-24] MEDS: ATENOLOL 25 MG TABLET (FP) PEG SCH (09:42)
[2021-05-24] MEDS: COLLAGENASE CLOSTRIDIUM HIST. 30 GRAMS TUBE TP SCH (09:43)
[2021-05-24] MEDS: FLUTICASONE PROP 0.05% 16 GM NASAL SPRAY NS SCH ×2 (09:53→22:46)
[2021-05-24 12:26] LABS: ANISOCYTOSIS 0; MACROCYTOSIS 0
[2021-05-24] MEDS: FUROSEMIDE INJECTION 100 MG in SODIUM CHLORIDE 40 ML IVPB SCH ×3 (13:11→23:02)
[2021-05-24] MEDS: SODIUM CHLORIDE 1,000 ML IV SCH (22:00)
[2021-05-25] MEDS: BANATROL PLUS POWDER PACKET GT SCH ×3 (06:31→21:25)
[2021-05-25] MEDS: VANCOMYCIN 250 MG/5 ML ORAL SOLUTION GT SCH ×3 (06:31→19:22)
[2021-05-25] MEDS: LEVOTHYROXINE NA 50 MCG TABLET (FP) PO SCH (06:31)
[2021-05-25] MEDS: INSULIN (LEVEMIR) 100 UNITS/ML UNITS SQ SCH (06:51)
[2021-05-25] MEDS: INSULIN SLIDING SCALE (NOVOLOG) 1 VIAL SQ SCH ×4 (06:52→21:25)
[2021-05-25] MEDS: SODIUM CHLORIDE 1,000 ML IV SCH (06:56)
[2021-05-25 07:56] LABS: HEMATOCRIT 26.8 % (32.4-45.2); HEMOGLOBIN 9.1 GM/dL (10.7-15.3); MCH 30.2 pg (25.7-33.7); MCHC 33.8 g/dl (32.0-36.0); MEAN CELL VOLUME 89.3 fl (80-96); MEAN PLT VOLUME 8.4 fl (7.5-11.1); PLATELET COUNT 296 10^3/uL (134-434); RDW 16.7 % (11.6-15.6); WHITE BLOOD COUNT 17.7 K/mm3 (4.0-10.0)
[2021-05-25 08:16] LABS: CHLORIDE 95 mmol/L (98-107); SODIUM 129 mmol/L (136-145)
[2021-05-25 08:22] LABS: ALBUMIN 0.9 g/dl (3.4-5.0); ANION GAP 14 MMOL/L (8-16); CO2 20 mmol/L (21-32); MAGNESIUM 1.9 mg/dL (1.8-2.4)
[2021-05-25 08:24] LABS: CREATININE 3.2 mg/dL (0.55-1.3); SGOT/AST 15 U/L (15-37); SGPT/ALT 12 U/L (13-61)
[2021-05-25 08:25] LABS: BILIRUBIN,TOTAL 0.3 mg/dL (0.2-1); TOT PROT 4.4 g/dl (6.4-8.2)
[2021-05-25 08:26] LABS: ALK PHOS 98 U/L (45-117)
[2021-05-25 08:33] LABS: BLOOD UREA NITROGEN 108.8 mg/dL (7-18); CALCIUM 6.3 mg/dL (8.5-10.1); GLUCOSE,RANDOM 136 mg/dL (74-106)
[2021-05-25 09:11] LABS: PHOSPHOROUS 8.8 mg/dL (2.5-4.9)
[2021-05-25] MEDS: MULTIVIT-MINERALS ORAL LIQUID GT SCH (10:00)
[2021-05-25 10:23] LABS: ANISOCYTOSIS 2+; MACROCYTOSIS 2+; TEAR DROP CELLS 1+
[2021-05-25] MEDS: ASCORBIC ACID 500 MG TABLET (FP) GT SCH ×2 (10:43→21:26)
[2021-05-25] MEDS: APIXABAN 2.5 MG TABLET GT SCH ×2 (10:43→21:25)
[2021-05-25] MEDS: PANTOPRAZOLE SODIUM 40 MG VIAL IVPUSH SCH (10:43)
[2021-05-25] MEDS: ATENOLOL 25 MG TABLET (FP) PEG SCH (10:43)
[2021-05-25] MEDS: FLUTICASONE PROP 0.05% 16 GM NASAL SPRAY NS SCH ×2 (10:44→21:25)
[2021-05-25] MEDS: COLLAGENASE CLOSTRIDIUM HIST. 30 GRAMS TUBE TP SCH (10:44)
[2021-05-25] MEDS: AMINO ACIDS/PROTEIN HYDROLYS 30 ML LIQUID.PKT PO SCH ×2 (10:44→19:21)
[2021-05-25] MEDS: FUROSEMIDE INJECTION 100 MG in SODIUM CHLORIDE 40 ML IVPB SCH (14:00)
[2021-05-25 15:12] LABS: URINE COLOR YELLOW
[2021-05-25 15:13] LABS: URINE APPEARANCE TURBID; URINE BILIRUBIN NEGATIVE (NEGATIVE); URINE GLUCOSE (UA) NEGATIVE (NEGATIVE); URINE KETONE NEGATIVE (NEGATIVE)
[2021-05-25 15:14] LABS: URINE PROTEIN 3+ (NEGATIVE)
[2021-05-25 15:15] LABS: URINE LEUK ESTERASE 3+ (NEGATIVE); URINE UROBILINOGEN 0.2 mg/dL (0.2-1.0)
[2021-05-25 15:23] LABS: EPI CELLS 3+ /uL (0-25.1); URINE BACTERIA 2+ /uL (0-1359); URINE NITRITE 3+ (NEGATIVE); URINE RBC 50-60 /uL (0-23.9); URINE WBC >100 /uL (0-25.8); YEAST MANY (NEGATIVE)
[2021-05-25] MEDS ORDERED: DEXTROSE 50%-WATER - 25 GM/50 ML VIAL IVPUSH ONE (18:25)
[2021-05-25] MEDS ORDERED: DEXTROSE 10%-WATER 500 ML INFUS.BAG IV ONE (18:29)
[2021-05-26] MEDS: VANCOMYCIN 250 MG/5 ML ORAL SOLUTION GT SCH ×5 (06:05→23:02)
[2021-05-26] MEDS: BANATROL PLUS POWDER PACKET GT SCH ×3 (06:06→21:13)
[2021-05-26] MEDS: INSULIN (LEVEMIR) 100 UNITS/ML UNITS SQ SCH (06:06)
[2021-05-26] MEDS: INSULIN SLIDING SCALE (NOVOLOG) 1 VIAL SQ SCH ×4 (06:07→21:14)
[2021-05-26] MEDS: LEVOTHYROXINE NA 50 MCG TABLET (FP) PO SCH (06:09)
[2021-05-26 07:29] LABS: CHLORIDE 93 mmol/L (98-107); SODIUM 126 mmol/L (136-145)
[2021-05-26 07:33] LABS: ALBUMIN 0.8 g/dl (3.4-5.0); ANION GAP 15 MMOL/L (8-16); CO2 18 mmol/L (21-32); GLUCOSE,RANDOM 250 mg/dL (74-106); MAGNESIUM 1.7 mg/dL (1.8-2.4)
[2021-05-26 07:36] LABS: CREATININE 3.2 mg/dL (0.55-1.3); SGOT/AST 17 U/L (15-37)
[2021-05-26 07:38] LABS: BILIRUBIN,TOTAL 0.3 mg/dL (0.2-1); SGPT/ALT 13 U/L (13-61); TOT PROT 4.1 g/dl (6.4-8.2)
[2021-05-26 07:39] LABS: ALK PHOS 96 U/L (45-117)
[2021-05-26 07:46] LABS: HEMOGLOBIN 9.4 GM/dL (10.7-15.3); MCH 30.2 pg (25.7-33.7); MCHC 33.6 g/dl (32.0-36.0); MEAN CELL VOLUME 89.9 fl (80-96); MEAN PLT VOLUME 8.5 fl (7.5-11.1); PLATELET COUNT 295 10^3/uL (134-434); RBC 3.12 M/mm3 (3.60-5.2); RDW 16.9 % (11.6-15.6); WHITE BLOOD COUNT 19.6 K/mm3 (4.0-10.0)
[2021-05-26 08:09] LABS: BLOOD UREA NITROGEN 104.6 mg/dL (7-18); PHOSPHOROUS 8.9 mg/dL (2.5-4.9)
[2021-05-26] MEDS: AMINO ACIDS/PROTEIN HYDROLYS 30 ML LIQUID.PKT PO SCH ×2 (10:04→17:49)
[2021-05-26] MEDS: PANTOPRAZOLE SODIUM 40 MG VIAL IVPUSH SCH (10:04)
[2021-05-26] MEDS: APIXABAN 2.5 MG TABLET GT SCH ×2 (10:04→21:13)
[2021-05-26] MEDS: ATENOLOL 25 MG TABLET (FP) PEG SCH (10:04)
[2021-05-26] MEDS: ASCORBIC ACID 500 MG TABLET (FP) GT SCH ×2 (10:04→21:14)
[2021-05-26] MEDS: COLLAGENASE CLOSTRIDIUM HIST. 30 GRAMS TUBE TP SCH (10:07)
[2021-05-26 10:10] LABS: ANISOCYTOSIS 2+; MACROCYTOSIS 2+
[2021-05-26] MEDS: FLUCONAZOLE 200 MG/NS 100 ML IVPB SCH (10:10)
[2021-05-26] MEDS: MULTIVIT-MINERALS ORAL LIQUID GT SCH (10:10)
[2021-05-26] MEDS: FLUTICASONE PROP 0.05% 16 GM NASAL SPRAY NS SCH ×2 (10:10→21:14)
[2021-05-26] MEDS ORDERED: LORazepam 2 MG/ML SDV VIAL IVPUSH PRN (16:56)
[2021-05-26] MEDS: FUROSEMIDE INJECTION 100 MG in SODIUM CHLORIDE 40 ML IVPB SCH (21:13)
[2021-05-27] MEDS: BANATROL PLUS POWDER PACKET GT SCH ×3 (06:01→21:14)
[2021-05-27] MEDS: INSULIN SLIDING SCALE (NOVOLOG) 1 VIAL SQ SCH ×4 (06:01→22:54)
[2021-05-27] MEDS: VANCOMYCIN 250 MG/5 ML ORAL SOLUTION GT SCH ×4 (06:01→22:59)
[2021-05-27] MEDS: LEVOTHYROXINE NA 50 MCG TABLET (FP) PO SCH (06:02)
[2021-05-27] MEDS: INSULIN (LEVEMIR) 100 UNITS/ML UNITS SQ SCH (06:02)
[2021-05-27 08:02] LABS: CHLORIDE 94 mmol/L (98-107); SODIUM 128 mmol/L (136-145)
[2021-05-27 08:04] LABS: ALBUMIN 0.8 g/dl (3.4-5.0); ANION GAP 16 MMOL/L (8-16); CO2 18 mmol/L (21-32); MAGNESIUM 1.9 mg/dL (1.8-2.4)
[2021-05-27 08:05] LABS: GLUCOSE,RANDOM 177 mg/dL (74-106)
[2021-05-27 08:07] LABS: CREATININE 3.2 mg/dL (0.55-1.3); HEMATOCRIT 25.9 % (32.4-45.2); HEMOGLOBIN 8.7 GM/dL (10.7-15.3); MCH 30.1 pg (25.7-33.7); MCHC 33.7 g/dl (32.0-36.0); MEAN CELL VOLUME 89.3 fl (80-96); MEAN PLT VOLUME 8.5 fl (7.5-11.1); PLATELET COUNT 250 10^3/uL (134-434); RBC 2.91 M/mm3 (3.60-5.2); RDW 16.6 % (11.6-15.6); SGOT/AST 17 U/L (15-37); WHITE BLOOD COUNT 15.5 K/mm3 (4.0-10.0)
[2021-05-27 08:08] LABS: SGPT/ALT 11 U/L (13-61)
[2021-05-27 08:10] LABS: ALK PHOS 103 U/L (45-117); BILIRUBIN,TOTAL 0.3 mg/dL (0.2-1)
[2021-05-27 08:15] LABS: BLOOD UREA NITROGEN 109.9 mg/dL (7-18)
[2021-05-27 08:29] LABS: PHOSPHOROUS 8.8 mg/dL (2.5-4.9)
[2021-05-27 09:24] LABS: ANISOCYTOSIS 1+; MACROCYTOSIS 0
[2021-05-27] MEDS: FLUCONAZOLE 200 MG/NS 100 ML IVPB SCH (09:24)
[2021-05-27] MEDS: MULTIVIT-MINERALS ORAL LIQUID GT SCH (09:25)
[2021-05-27] MEDS: ASCORBIC ACID 500 MG TABLET (FP) GT SCH ×2 (09:25→21:14)
[2021-05-27] MEDS: AMINO ACIDS/PROTEIN HYDROLYS 30 ML LIQUID.PKT PO SCH ×2 (09:25→18:03)
[2021-05-27] MEDS: APIXABAN 2.5 MG TABLET GT SCH ×2 (09:25→21:14)
[2021-05-27] MEDS: FLUTICASONE PROP 0.05% 16 GM NASAL SPRAY NS SCH ×2 (09:26→21:14)
[2021-05-27] MEDS: COLLAGENASE CLOSTRIDIUM HIST. 30 GRAMS TUBE TP SCH (09:26)
[2021-05-27] MEDS: PANTOPRAZOLE SODIUM 40 MG VIAL IVPUSH SCH (09:26)
[2021-05-27] MEDS: ATENOLOL 25 MG TABLET (FP) PEG SCH (09:26)
[2021-05-27] MEDS: ALBUMIN HUMAN 25% 12.5 GM/50 ML VIAL IV SCH ×2 (12:19→12:57)
[2021-05-27] MEDS: SEVELAMER CARBONATE 0.8 GM POWDER PACKET GT SCH ×2 (12:45→18:03)
[2021-05-27] MEDS ORDERED: FUROSEMIDE 100 MG/10 ML INJECTABLE VIAL IVPB ONE (13:00)
[2021-05-27] MEDS: FUROSEMIDE INJECTION 100 MG in SODIUM CHLORIDE 40 ML IVPB SCH (18:57)
[2021-05-28] MEDS: BANATROL PLUS POWDER PACKET GT SCH ×3 (06:32→22:12)
[2021-05-28] MEDS: LEVOTHYROXINE NA 50 MCG TABLET (FP) PO SCH (06:34)
[2021-05-28] MEDS: VANCOMYCIN 250 MG/5 ML ORAL SOLUTION GT SCH ×4 (06:34→22:59)
[2021-05-28] MEDS: FUROSEMIDE INJECTION 100 MG in SODIUM CHLORIDE 40 ML IVPB SCH (06:35)
[2021-05-28] MEDS: INSULIN (LEVEMIR) 100 UNITS/ML UNITS SQ SCH (06:35)
[2021-05-28] MEDS: INSULIN SLIDING SCALE (NOVOLOG) 1 VIAL SQ SCH ×4 (06:35→22:12)
[2021-05-28 07:07] LABS: HEMATOCRIT 23.2 % (32.4-45.2); HEMOGLOBIN 7.6 GM/dL (10.7-15.3); MCH 29.5 pg (25.7-33.7); MCHC 32.8 g/dl (32.0-36.0); MEAN CELL VOLUME 89.8 fl (80-96); MEAN PLT VOLUME 8.9 fl (7.5-11.1); PLATELET COUNT 238 10^3/uL (134-434); RBC 2.59 M/mm3 (3.60-5.2); RDW 16.6 % (11.6-15.6); WHITE BLOOD COUNT 12.9 K/mm3 (4.0-10.0)
[2021-05-28 07:25] LABS: CHLORIDE 94 mmol/L (98-107); SODIUM 126 mmol/L (136-145)
[2021-05-28 07:29] LABS: ANION GAP 14 MMOL/L (8-16); CO2 19 mmol/L (21-32); GLUCOSE,RANDOM 142 mg/dL (74-106); MAGNESIUM 1.8 mg/dL (1.8-2.4)
[2021-05-28 07:32] LABS: CREATININE 3.3 mg/dL (0.55-1.3); SGOT/AST 17 U/L (15-37); SGPT/ALT 11 U/L (13-61)
[2021-05-28 07:33] LABS: BILIRUBIN,TOTAL 0.5 mg/dL (0.2-1); TOT PROT 4.2 g/dl (6.4-8.2)
[2021-05-28 07:35] LABS: ALK PHOS 92 U/L (45-117)
[2021-05-28 07:36] LABS: ALBUMIN 1.2 g/dl (3.4-5.0); BLOOD UREA NITROGEN 111.8 mg/dL (7-18)
[2021-05-28 07:48] LABS: CALCIUM 5.6 mg/dL (8.5-10.1)
[2021-05-28 07:56] LABS: PHOSPHOROUS 8.9 mg/dL (2.5-4.9)
[2021-05-28] MEDS: SEVELAMER CARBONATE 0.8 GM POWDER PACKET GT SCH ×3 (08:55→18:25)
[2021-05-28] MEDS: AMINO ACIDS/PROTEIN HYDROLYS 30 ML LIQUID.PKT PO SCH ×2 (08:55→18:25)
[2021-05-28] MEDS: PANTOPRAZOLE SODIUM 40 MG VIAL IVPUSH SCH (09:40)
[2021-05-28] MEDS: ATENOLOL 25 MG TABLET (FP) PEG SCH (09:41)
[2021-05-28] MEDS: COLLAGENASE CLOSTRIDIUM HIST. 30 GRAMS TUBE TP SCH (09:41)
[2021-05-28] MEDS: ASCORBIC ACID 500 MG TABLET (FP) GT SCH ×2 (09:41→22:12)
[2021-05-28] MEDS: FLUTICASONE PROP 0.05% 16 GM NASAL SPRAY NS SCH ×2 (09:42→22:12)
[2021-05-28] MEDS: MULTIVIT-MINERALS ORAL LIQUID GT SCH (09:42)
[2021-05-28] MEDS: FLUCONAZOLE 200 MG/NS 100 ML IVPB SCH (09:42)
[2021-05-28 09:47] LABS: ANISOCYTOSIS 1+; MACROCYTOSIS 1+
[2021-05-28 09:48] LABS: PLATELET ESTIMATE ADEQUATE
[2021-05-28] MEDS ORDERED: FUROSEMIDE 100 MG/10 ML INJECTABLE VIAL IVPB ONE (11:15)
[2021-05-28] MEDS ORDERED: DEXTROSE 50%-WATER 25 GM/50 ML DISP.SYRIN IVPUSH ONE (19:02)
[2021-05-29] MEDS: VANCOMYCIN 250 MG/5 ML ORAL SOLUTION GT SCH ×4 (06:13→23:41)
[2021-05-29] MEDS: BANATROL PLUS POWDER PACKET GT SCH ×3 (06:13→21:14)
[2021-05-29] MEDS: INSULIN (LEVEMIR) 100 UNITS/ML UNITS SQ SCH (06:13)
[2021-05-29] MEDS: INSULIN SLIDING SCALE (NOVOLOG) 1 VIAL SQ SCH ×4 (06:14→21:16)
[2021-05-29] MEDS: LEVOTHYROXINE NA 50 MCG TABLET (FP) PO SCH (06:15)
[2021-05-29 07:25] LABS: HEMATOCRIT 21.6 % (32.4-45.2); HEMOGLOBIN 7.5 GM/dL (10.7-15.3); MCH 30.5 pg (25.7-33.7); MCHC 34.5 g/dl (32.0-36.0); MEAN CELL VOLUME 88.6 fl (80-96); MEAN PLT VOLUME 8.9 fl (7.5-11.1); PLATELET COUNT 218 10^3/uL (134-434); RBC 2.44 M/mm3 (3.60-5.2); RDW 16.6 % (11.6-15.6); WHITE BLOOD COUNT 12.4 K/mm3 (4.0-10.0)
[2021-05-29 07:37] LABS: CHLORIDE 92 mmol/L (98-107); SODIUM 123 mmol/L (136-145)
[2021-05-29 07:41] LABS: ANION GAP 14 MMOL/L (8-16); CO2 18 mmol/L (21-32); GLUCOSE,RANDOM 144 mg/dL (74-106)
[2021-05-29 07:44] LABS: CREATININE 3.3 mg/dL (0.55-1.3); SGOT/AST 22 U/L (15-37); SGPT/ALT 12 U/L (13-61)
[2021-05-29 07:46] LABS: BILIRUBIN,TOTAL 0.5 mg/dL (0.2-1)
[2021-05-29 07:47] LABS: ALK PHOS 99 U/L (45-117); CALCIUM 5.7 mg/dL (8.5-10.1)
[2021-05-29 08:18] LABS: INR 1.64 (0.83-1.09); PROTHROMBIN TIME (PATIENT) 18.9 SEC (9.7-13.0)
[2021-05-29 08:20] LABS: ACTIVATED PTT 32.4 SECONDS (25.2-36.5)
[2021-05-29 09:13] LABS: ANISOCYTOSIS 2+; MACROCYTOSIS 1+; OVALOCYTE 1+
[2021-05-29] MEDS ORDERED: FUROSEMIDE 100 MG/10 ML INJECTABLE VIAL IVPB ONE (09:15)
[2021-05-29 09:44] LABS: PLATELET ESTIMATE ADEQUATE
[2021-05-29] MEDS: AMINO ACIDS/PROTEIN HYDROLYS 30 ML LIQUID.PKT PO SCH ×2 (09:53→16:42)
[2021-05-29] MEDS: ASCORBIC ACID 500 MG TABLET (FP) GT SCH ×2 (09:53→21:14)
[2021-05-29] MEDS: PANTOPRAZOLE SODIUM 40 MG VIAL IVPUSH SCH (09:53)
[2021-05-29] MEDS: MULTIVIT-MINERALS ORAL LIQUID GT SCH (09:53)
[2021-05-29] MEDS: ATENOLOL 25 MG TABLET (FP) PEG SCH (09:53)
[2021-05-29] MEDS: FLUTICASONE PROP 0.05% 16 GM NASAL SPRAY NS SCH ×2 (09:55→21:15)
[2021-05-29] MEDS: APIXABAN 2.5 MG TABLET GT SCH (09:55)
[2021-05-29] MEDS: FLUCONAZOLE 200 MG/NS 100 ML IVPB SCH (09:55)
[2021-05-29] MEDS: SEVELAMER CARBONATE 0.8 GM POWDER PACKET GT SCH ×3 (09:56→16:42)
[2021-05-29] MEDS: COLLAGENASE CLOSTRIDIUM HIST. 30 GRAMS TUBE TP SCH (10:35)
[2021-05-29] MEDS: ALBUMIN HUMAN 25% 12.5 GM/50 ML VIAL IV SCH ×2 (11:46→12:09)
[2021-05-30] MEDS: VANCOMYCIN 250 MG/5 ML ORAL SOLUTION GT SCH ×4 (06:01→23:35)
[2021-05-30] MEDS: BANATROL PLUS POWDER PACKET GT SCH ×3 (06:01→21:15)
[2021-05-30] MEDS: INSULIN (LEVEMIR) 100 UNITS/ML UNITS SQ SCH (06:01)
[2021-05-30] MEDS: INSULIN SLIDING SCALE (NOVOLOG) 1 VIAL SQ SCH ×4 (06:02→21:16)
[2021-05-30] MEDS: LEVOTHYROXINE NA 50 MCG TABLET (FP) PO SCH (06:02)
[2021-05-30 07:27] LABS: HEMATOCRIT 22.1 % (32.4-45.2); HEMOGLOBIN 7.4 GM/dL (10.7-15.3); MCH 29.9 pg (25.7-33.7); MCHC 33.4 g/dl (32.0-36.0); MEAN CELL VOLUME 89.4 fl (80-96); MEAN PLT VOLUME 8.7 fl (7.5-11.1); PLATELET COUNT 226 10^3/uL (134-434); RBC 2.47 M/mm3 (3.60-5.2); RDW 16.8 % (11.6-15.6); WHITE BLOOD COUNT 11.5 K/mm3 (4.0-10.0)
[2021-05-30 07:43] LABS: CHLORIDE 92 mmol/L (98-107); SODIUM 126 mmol/L (136-145)
[2021-05-30 07:46] LABS: ANION GAP 16 MMOL/L (8-16); CO2 18 mmol/L (21-32); GLUCOSE,RANDOM 121 mg/dL (74-106); MAGNESIUM 1.9 mg/dL (1.8-2.4)
[2021-05-30 07:48] LABS: SGPT/ALT 18 U/L (13-61)
[2021-05-30 07:49] LABS: CREATININE 3.4 mg/dL (0.55-1.3); SGOT/AST 28 U/L (15-37)
[2021-05-30 07:50] LABS: BILIRUBIN,TOTAL 0.4 mg/dL (0.2-1); TOT PROT 4.4 g/dl (6.4-8.2)
[2021-05-30 07:51] LABS: ALK PHOS 120 U/L (45-117)
[2021-05-30] MEDS ORDERED: MIDAZOLAM HCL 5 MG/1 ML Single Dose Vial IVPUSH ONE (08:30)
[2021-05-30] MEDS: SEVELAMER CARBONATE 0.8 GM POWDER PACKET GT SCH ×3 (08:51→17:30)
[2021-05-30] MEDS: AMINO ACIDS/PROTEIN HYDROLYS 30 ML LIQUID.PKT PO SCH ×2 (08:51→17:30)
[2021-05-30] MEDS ORDERED: PROPOFOL 1,000,000 MCG/100 ML VIAL ONE (08:57)
[2021-05-30] MEDS ORDERED: SODIUM ZIRCONIUM CYCLOSILICATE (LOKELMA) 5 GM PACKET PO ONE (09:18)
[2021-05-30 09:29] LABS: ALBUMIN 1.3 g/dl (3.4-5.0); BLOOD UREA NITROGEN 117.4 mg/dL (7-18); CALCIUM 5.7 mg/dL (8.5-10.1); PHOSPHOROUS 8.7 mg/dL (2.5-4.9)
[2021-05-30] MEDS: MULTIVIT-MINERALS ORAL LIQUID GT SCH (09:46)
[2021-05-30 09:47] LABS: ANISOCYTOSIS 0; HELMET CELLS 0; HOWELL-JOLLY BODIES 0; MACROCYTOSIS 0; OVALOCYTE 0; ROULEAU 0; SICKELED CELLS 0; TARGET CELLS 0; TEAR DROP CELLS 0; TOXIC GRANULATION 0
[2021-05-30] MEDS: FLUCONAZOLE 200 MG/NS 100 ML IVPB SCH (09:51)
[2021-05-30] MEDS ORDERED: ROCURONIUM BROMIDE 50 MG/5 ML VIAL IV ONE (10:00)
[2021-05-30] MEDS ORDERED: PROPOFOL 200 MG/20 ML VIAL IVPUSH ONE (10:00)
[2021-05-30] MEDS: PANTOPRAZOLE SODIUM 40 MG VIAL IVPUSH SCH (10:02)
[2021-05-30] MEDS: ATENOLOL 25 MG TABLET (FP) PEG SCH (10:02)
[2021-05-30] MEDS: ASCORBIC ACID 500 MG TABLET (FP) GT SCH ×2 (10:02→21:15)
[2021-05-30] MEDS: FLUTICASONE PROP 0.05% 16 GM NASAL SPRAY NS SCH ×2 (11:03→21:15)
[2021-05-30] MEDS: VASOPRESSIN 40 UNITS/100 ML BAG IV SCH (11:30)
[2021-05-30] MEDS ORDERED: VASOPRESSIN 20 UNITS/ML VIAL IV ONE (11:30)
[2021-05-30] MEDS ORDERED: PHENYLEPHRINE HCL 10 MG/1 ML SINGLE DOSE VIAL ONE (11:34)
[2021-05-30] MEDS ORDERED: PHENYLEPHRINE HCL 10 MG/1 ML SINGLE DOSE VIAL IVPB ONE (13:36)
[2021-05-30] MEDS: FUROSEMIDE 100 MG/10 ML INJECTABLE VIAL IVPUSH SCH (15:30)
[2021-05-30] MEDS: COLLAGENASE CLOSTRIDIUM HIST. 30 GRAMS TUBE TP SCH (15:47)
[2021-05-30] MEDS: ALBUMIN HUMAN 25% 12.5 GM/50 ML VIAL IV SCH ×2 (15:48→17:29)
[2021-05-31] MEDS: BANATROL PLUS POWDER PACKET GT SCH ×3 (05:27→21:42)
[2021-05-31] MEDS: VANCOMYCIN 250 MG/5 ML ORAL SOLUTION GT SCH ×3 (05:27→17:03)
[2021-05-31] MEDS: FUROSEMIDE 100 MG/10 ML INJECTABLE VIAL IVPUSH SCH ×2 (05:27→14:12)
[2021-05-31] MEDS: INSULIN SLIDING SCALE (NOVOLOG) 1 VIAL SQ SCH ×4 (06:05→21:33)
[2021-05-31] MEDS: INSULIN (LEVEMIR) 100 UNITS/ML UNITS SQ SCH (06:05)
[2021-05-31] MEDS: LEVOTHYROXINE NA 50 MCG TABLET (FP) PO SCH (06:06)
[2021-05-31 07:32] LABS: BASO % 0.2 % (0-2.0); EOS % 0.2 % (0-4.5); HEMATOCRIT 20.3 % (32.4-45.2); LYMPH % 1.8 % (8-40); MONO % 0.9 % (3.8-10.2); NEUT % 96.9 % (42.8-82.8); PLATELET COUNT 203 10^3/uL (134-434); RBC 2.23 M/mm3 (3.60-5.2); WHITE BLOOD COUNT 9.5 K/mm3 (4.0-10.0)
[2021-05-31 07:33] LABS: CHLORIDE 93 mmol/L (98-107); SODIUM 127 mmol/L (136-145)
[2021-05-31 07:35] LABS: ANION GAP 16 MMOL/L (8-16); CO2 17 mmol/L (21-32); GLUCOSE,RANDOM 211 mg/dL (74-106); MAGNESIUM 1.8 mg/dL (1.8-2.4)
[2021-05-31 07:38] LABS: CREATININE 3.5 mg/dL (0.55-1.3); SGOT/AST 22 U/L (15-37); SGPT/ALT 16 U/L (13-61)
[2021-05-31 07:40] LABS: BILIRUBIN,TOTAL 0.4 mg/dL (0.2-1); TOT PROT 4.6 g/dl (6.4-8.2)
[2021-05-31 07:41] LABS: ALBUMIN 1.6 g/dl (3.4-5.0); ALK PHOS 125 U/L (45-117); BLOOD UREA NITROGEN 123.7 mg/dL (7-18); CALCIUM 5.8 mg/dL (8.5-10.1)
[2021-05-31 07:46] LABS: HEMOGLOBIN 6.7 GM/dL (10.7-15.3)
[2021-05-31 08:01] LABS: PHOSPHOROUS 9.3 mg/dL (2.5-4.9)
[2021-05-31] MEDS: AMINO ACIDS/PROTEIN HYDROLYS 30 ML LIQUID.PKT PO SCH ×2 (09:51→16:41)
[2021-05-31] MEDS: SEVELAMER CARBONATE 0.8 GM POWDER PACKET GT SCH ×3 (09:52→16:41)
[2021-05-31] MEDS: APIXABAN 2.5 MG TABLET GT SCH ×2 (09:53→21:42)
[2021-05-31] MEDS: MULTIVIT-MINERALS ORAL LIQUID GT SCH (09:53)
[2021-05-31] MEDS: COLLAGENASE CLOSTRIDIUM HIST. 30 GRAMS TUBE TP SCH (09:53)
[2021-05-31] MEDS: ATENOLOL 25 MG TABLET (FP) PEG SCH (09:53)
[2021-05-31] MEDS: ASCORBIC ACID 500 MG TABLET (FP) GT SCH ×2 (09:53→21:42)
[2021-05-31] MEDS: PANTOPRAZOLE SODIUM 40 MG VIAL IVPUSH SCH (09:53)
[2021-05-31] MEDS: FLUTICASONE PROP 0.05% 16 GM NASAL SPRAY NS SCH ×2 (09:54→21:42)
[2021-05-31] MEDS: FLUCONAZOLE 200 MG/NS 100 ML IVPB SCH (09:58)
[2021-05-31 10:42] LABS: ANISOCYTOSIS 1+; MACROCYTOSIS 0; OVALOCYTE 1+
[2021-05-31] MEDS: VASOPRESSIN 40 UNITS/100 ML BAG IV SCH (14:08)
[2021-05-31 18:37] LABS: HEMOGLOBIN 8.1 GM/dL (10.7-15.3); MCH 29.8 pg (25.7-33.7); MCHC 32.5 g/dl (32.0-36.0); MEAN CELL VOLUME 91.7 fl (80-96); MEAN PLT VOLUME 9.1 fl (7.5-11.1); PLATELET COUNT 188 10^3/uL (134-434); RBC 2.73 M/mm3 (3.60-5.2); RDW 16.3 % (11.6-15.6); WHITE BLOOD COUNT 9.8 K/mm3 (4.0-10.0)
[2021-06-01] MEDS: VANCOMYCIN 250 MG/5 ML ORAL SOLUTION GT SCH ×4 (00:11→18:09)
[2021-06-01] MEDS: FUROSEMIDE 100 MG/10 ML INJECTABLE VIAL IVPUSH SCH ×2 (05:32→13:19)
[2021-06-01] MEDS: INSULIN SLIDING SCALE (NOVOLOG) 1 VIAL SQ SCH ×4 (06:06→22:18)
[2021-06-01] MEDS: LEVOTHYROXINE NA 50 MCG TABLET (FP) PO SCH (06:18)
[2021-06-01] MEDS: BANATROL PLUS POWDER PACKET GT SCH ×3 (06:18→21:33)
[2021-06-01] MEDS: INSULIN (LEVEMIR) 100 UNITS/ML UNITS SQ SCH (06:19)
[2021-06-01 07:32] LABS: CHLORIDE 94 mmol/L (98-107); SODIUM 124 mmol/L (136-145)
[2021-06-01 07:37] LABS: ALBUMIN 1.5 g/dl (3.4-5.0); CO2 18 mmol/L (21-32); GLUCOSE,RANDOM 264 mg/dL (74-106); MAGNESIUM 1.9 mg/dL (1.8-2.4)
[2021-06-01 07:40] LABS: CREATININE 3.5 mg/dL (0.55-1.3); SGOT/AST 17 U/L (15-37); SGPT/ALT 16 U/L (13-61)
[2021-06-01 07:42] LABS: BILIRUBIN,TOTAL 0.5 mg/dL (0.2-1); TOT PROT 4.9 g/dl (6.4-8.2)
[2021-06-01 07:43] LABS: ALK PHOS 146 U/L (45-117)
[2021-06-01 07:46] LABS: ANION GAP 13 MMOL/L (8-16); BLOOD UREA NITROGEN 127.8 mg/dL (7-18); CALCIUM 5.8 mg/dL (8.5-10.1)
[2021-06-01 08:03] LABS: HEMATOCRIT 24.6 % (32.4-45.2); HEMOGLOBIN 8.2 GM/dL (10.7-15.3); MCH 30.6 pg (25.7-33.7); MCHC 33.5 g/dl (32.0-36.0); MEAN CELL VOLUME 91.3 fl (80-96); MEAN PLT VOLUME 9.3 fl (7.5-11.1); PLATELET COUNT 184 10^3/uL (134-434); RDW 16.5 % (11.6-15.6); WHITE BLOOD COUNT 10.2 K/mm3 (4.0-10.0)
[2021-06-01 09:09] LABS: ANISOCYTOSIS 1+; MACROCYTOSIS 0
[2021-06-01] MEDS: AMINO ACIDS/PROTEIN HYDROLYS 30 ML LIQUID.PKT PO SCH ×2 (10:05→18:08)
[2021-06-01] MEDS: MULTIVIT-MINERALS ORAL LIQUID GT SCH (10:06)
[2021-06-01] MEDS: FLUCONAZOLE 200 MG/NS 100 ML IVPB SCH (10:07)
[2021-06-01] MEDS: PANTOPRAZOLE SODIUM 40 MG VIAL IVPUSH SCH (10:09)
[2021-06-01] MEDS: APIXABAN 2.5 MG TABLET GT SCH ×2 (10:10→21:33)
[2021-06-01] MEDS: COLLAGENASE CLOSTRIDIUM HIST. 30 GRAMS TUBE TP SCH (10:10)
[2021-06-01] MEDS: ATENOLOL 25 MG TABLET (FP) PEG SCH (10:11)
[2021-06-01] MEDS: ASCORBIC ACID 500 MG TABLET (FP) GT SCH ×2 (10:11→21:33)
[2021-06-01] MEDS: SEVELAMER CARBONATE 0.8 GM POWDER PACKET GT SCH ×3 (10:12→18:09)
[2021-06-01] MEDS ORDERED: DEXTROSE 50%-WATER 25 GM/50 ML DISP.SYRIN IVPUSH ONE (10:25)
[2021-06-01] MEDS ORDERED: SODIUM BICARBONATE 8.4% 50 MEQ/50 ML DISP.SYRIN IVPUSH ONE (10:25)
[2021-06-01] MEDS ORDERED: INSULIN REGULAR HUMAN 100 UNITS/ML *VIAL IVPUSH ONE (10:25)
[2021-06-01] MEDS ORDERED: CALCIUM GLUCONATE 10% - 1,000 MG/10 ML VIAL IVPB ONE (10:25)
[2021-06-01] MEDS ORDERED: SODIUM ZIRCONIUM CYCLOSILICATE (LOKELMA) 5 GM PACKET PO ONE (10:25)
[2021-06-01] MEDS ORDERED: SODIUM CHLORIDE 250 ML IV PRN ×3 (10:26→17:20)
[2021-06-01] MEDS ORDERED: diazePAM CARPU-JECT 10 MG/2 ML DISP.SYRIN IVPUSH ONE (10:32)
[2021-06-01] MEDS ORDERED: diazePAM CARPU-JECT 10 MG/2 ML DISP.SYRIN IVPUSH PRN (10:35)
[2021-06-01] MEDS ORDERED: LORazepam 2 MG/ML SDV VIAL IVPUSH SCH (10:45)
[2021-06-01] MEDS: FLUTICASONE PROP 0.05% 16 GM NASAL SPRAY NS SCH ×2 (11:18→21:45)
[2021-06-01] MEDS ORDERED: DEXTROSE 50%-WATER 25 GM/50 ML DISP.SYRIN ONE (11:34)
[2021-06-01] MEDS: VASOPRESSIN 40 UNITS/100 ML BAG IV SCH (13:19)
[2021-06-01] MEDS: ALBUMIN HUMAN 25% 12.5 GM/50 ML VIAL IV SCH ×4 (13:30→15:43)
[2021-06-01 14:25] LABS: HEMOGLOBIN 7.4 GM/dL (10.7-15.3); MCH 30.2 pg (25.7-33.7); MCHC 33.6 g/dl (32.0-36.0); MEAN CELL VOLUME 89.9 fl (80-96); MEAN PLT VOLUME 8.5 fl (7.5-11.1); PLATELET COUNT 152 10^3/uL (134-434); RBC 2.45 M/mm3 (3.60-5.2); RDW 16.4 % (11.6-15.6)
[2021-06-01 15:04] LABS: ANISOCYTOSIS 0; HELMET CELLS 0; HOWELL-JOLLY BODIES 0; MACROCYTOSIS 0; OVALOCYTE 0; ROULEAU 0; SICKELED CELLS 0; TARGET CELLS 0; TEAR DROP CELLS 0; TOXIC GRANULATION 0
[2021-06-01] MEDS: SILVER SULFADIAZINE 1% TOP CREAM 50 GM JAR TP SCH (19:55)
[2021-06-02] MEDS: VANCOMYCIN 250 MG/5 ML ORAL SOLUTION GT SCH ×4 (01:29→17:52)
[2021-06-02] MEDS: BANATROL PLUS POWDER PACKET GT SCH ×3 (05:13→21:12)
[2021-06-02] MEDS: INSULIN (LEVEMIR) 100 UNITS/ML UNITS SQ SCH (06:05)
[2021-06-02] MEDS: INSULIN SLIDING SCALE (NOVOLOG) 1 VIAL SQ SCH ×4 (06:10→21:14)
[2021-06-02] MEDS: LEVOTHYROXINE NA 50 MCG TABLET (FP) PO SCH (06:10)
[2021-06-02 06:57] LABS: HEMATOCRIT 20.3 % (32.4-45.2); MCH 30.8 pg (25.7-33.7); MCHC 34.5 g/dl (32.0-36.0); MEAN CELL VOLUME 89.4 fl (80-96); MEAN PLT VOLUME 8.8 fl (7.5-11.1); PLATELET COUNT 138 10^3/uL (134-434); RBC 2.27 M/mm3 (3.60-5.2); RDW 16.8 % (11.6-15.6); WHITE BLOOD COUNT 10.2 K/mm3 (4.0-10.0)
[2021-06-02 07:21] LABS: CHLORIDE 96 mmol/L (98-107); SODIUM 130 mmol/L (136-145)
[2021-06-02 07:26] LABS: GLUCOSE,RANDOM 184 mg/dL (74-106)
[2021-06-02 07:28] LABS: SGPT/ALT 11 U/L (13-61)
[2021-06-02 07:29] LABS: CREATININE 2.5 mg/dL (0.55-1.3); SGOT/AST 13 U/L (15-37)
[2021-06-02 07:30] LABS: ANION GAP 10 MMOL/L (8-16); BILIRUBIN,TOTAL 0.3 mg/dL (0.2-1); CO2 24 mmol/L (21-32); MAGNESIUM 1.9 mg/dL (1.8-2.4); TOT PROT 4.6 g/dl (6.4-8.2)
[2021-06-02 07:32] LABS: ALK PHOS 117 U/L (45-117)
[2021-06-02 07:47] LABS: ALBUMIN 1.8 g/dl (3.4-5.0); BLOOD UREA NITROGEN 93.7 mg/dL (7-18); CALCIUM 6.5 mg/dL (8.5-10.1)
[2021-06-02] MEDS: AMINO ACIDS/PROTEIN HYDROLYS 30 ML LIQUID.PKT PO SCH ×2 (09:57→17:09)
[2021-06-02] MEDS: ASCORBIC ACID 500 MG TABLET (FP) GT SCH ×2 (09:58→21:12)
[2021-06-02] MEDS: APIXABAN 2.5 MG TABLET GT SCH ×2 (09:58→21:12)
[2021-06-02] MEDS: MULTIVIT-MINERALS ORAL LIQUID GT SCH (09:58)
[2021-06-02] MEDS: SEVELAMER CARBONATE 0.8 GM POWDER PACKET GT SCH ×3 (09:58→17:09)
[2021-06-02] MEDS: PANTOPRAZOLE SODIUM 40 MG VIAL IVPUSH SCH (09:58)
[2021-06-02] MEDS: FLUCONAZOLE 200 MG/NS 100 ML IVPB SCH (09:59)
[2021-06-02] MEDS: COLLAGENASE CLOSTRIDIUM HIST. 30 GRAMS TUBE TP SCH (09:59)
[2021-06-02] MEDS: FLUTICASONE PROP 0.05% 16 GM NASAL SPRAY NS SCH ×2 (09:59→21:14)
[2021-06-02] MEDS: SILVER SULFADIAZINE 1% TOP CREAM 50 GM JAR TP SCH (09:59)
[2021-06-02] MEDS: ATENOLOL 25 MG TABLET (FP) PEG SCH (09:59)
[2021-06-02 10:09] LABS: ANISOCYTOSIS 0; HELMET CELLS 0; HOWELL-JOLLY BODIES 0; MACROCYTOSIS 0; OVALOCYTE 0; ROULEAU 0; SICKELED CELLS 0; TARGET CELLS 0; TEAR DROP CELLS 0; TOXIC GRANULATION 0
[2021-06-03] MEDS: VASOPRESSIN 40 UNITS/100 ML BAG IV SCH (00:43)
[2021-06-03] MEDS: VANCOMYCIN 250 MG/5 ML ORAL SOLUTION GT SCH (00:44)
[2021-06-03] MEDS: BANATROL PLUS POWDER PACKET GT SCH ×3 (05:47→21:42)
[2021-06-03] MEDS: LEVOTHYROXINE NA 50 MCG TABLET (FP) PO SCH (06:01)
[2021-06-03] MEDS: INSULIN (LEVEMIR) 100 UNITS/ML UNITS SQ SCH (06:07)
[2021-06-03] MEDS: INSULIN SLIDING SCALE (NOVOLOG) 1 VIAL SQ SCH ×4 (06:13→21:43)
[2021-06-03 07:11] LABS: HEMATOCRIT 26.3 % (32.4-45.2); HEMOGLOBIN 9.3 GM/dL (10.7-15.3); MCH 30.1 pg (25.7-33.7); MCHC 35.3 g/dl (32.0-36.0); MEAN CELL VOLUME 85.1 fl (80-96); MEAN PLT VOLUME 8.5 fl (7.5-11.1); PLATELET COUNT 127 10^3/uL (134-434); RBC 3.09 M/mm3 (3.60-5.2); RDW 17.5 % (11.6-15.6); WHITE BLOOD COUNT 11.7 K/mm3 (4.0-10.0)
[2021-06-03 07:31] LABS: CHLORIDE 98 mmol/L (98-107); SODIUM 135 mmol/L (136-145)
[2021-06-03 07:33] LABS: ALBUMIN 1.8 g/dl (3.4-5.0); ANION GAP 9 MMOL/L (8-16); CO2 28 mmol/L (21-32); GLUCOSE,RANDOM 214 mg/dL (74-106)
[2021-06-03 07:34] LABS: MAGNESIUM 1.6 mg/dL (1.8-2.4)
[2021-06-03 07:36] LABS: CREATININE 1.8 mg/dL (0.55-1.3); PHOSPHOROUS 4.7 mg/dL (2.5-4.9)
[2021-06-03 07:37] LABS: SGOT/AST 17 U/L (15-37); SGPT/ALT 12 U/L (13-61)
[2021-06-03 07:38] LABS: BILIRUBIN,TOTAL 0.4 mg/dL (0.2-1); TOT PROT 4.6 g/dl (6.4-8.2)
[2021-06-03 07:39] LABS: ALK PHOS 131 U/L (45-117)
[2021-06-03 08:17] LABS: BLOOD UREA NITROGEN 58.1 mg/dL (7-18); CALCIUM 6.7 mg/dL (8.5-10.1)
[2021-06-03] MEDS: SEVELAMER CARBONATE 0.8 GM POWDER PACKET GT SCH ×3 (08:59→18:44)
[2021-06-03] MEDS: AMINO ACIDS/PROTEIN HYDROLYS 30 ML LIQUID.PKT PO SCH ×2 (08:59→18:44)
[2021-06-03 09:45] LABS: ANISOCYTOSIS 0; HELMET CELLS 0; HOWELL-JOLLY BODIES 0; MACROCYTOSIS 0; OVALOCYTE 0; ROULEAU 0; SICKELED CELLS 0; TARGET CELLS 0; TEAR DROP CELLS 0; TOXIC GRANULATION 0
[2021-06-03] MEDS: FLUCONAZOLE 200 MG/NS 100 ML IVPB SCH (10:46)
[2021-06-03] MEDS: MULTIVIT-MINERALS ORAL LIQUID GT SCH (10:47)
[2021-06-03] MEDS: PANTOPRAZOLE SODIUM 40 MG VIAL IVPUSH SCH (10:48)
[2021-06-03] MEDS: APIXABAN 2.5 MG TABLET GT SCH ×2 (10:49→21:42)
[2021-06-03] MEDS: SILVER SULFADIAZINE 1% TOP CREAM 50 GM JAR TP SCH (10:50)
[2021-06-03] MEDS: COLLAGENASE CLOSTRIDIUM HIST. 30 GRAMS TUBE TP SCH (10:50)
[2021-06-03] MEDS: ASCORBIC ACID 500 MG TABLET (FP) GT SCH ×2 (10:50→21:42)
[2021-06-03] MEDS: ATENOLOL 25 MG TABLET (FP) PEG SCH (10:50)
[2021-06-03] MEDS: FLUTICASONE PROP 0.05% 16 GM NASAL SPRAY NS SCH (10:51)
[2021-06-04] MEDS: INSULIN SLIDING SCALE (NOVOLOG) 1 VIAL SQ SCH ×4 (06:38→22:37)
[2021-06-04] MEDS: BANATROL PLUS POWDER PACKET GT SCH ×3 (06:38→22:37)
[2021-06-04] MEDS: INSULIN (LEVEMIR) 100 UNITS/ML UNITS SQ SCH (06:38)
[2021-06-04] MEDS: LEVOTHYROXINE NA 50 MCG TABLET (FP) PO SCH (06:38)
[2021-06-04 07:12] LABS: MCH 29.1 pg (25.7-33.7); MCHC 33.3 g/dl (32.0-36.0); MEAN CELL VOLUME 87.3 fl (80-96); MEAN PLT VOLUME 8.7 fl (7.5-11.1); PLATELET COUNT 129 10^3/uL (134-434); RDW 17.2 % (11.6-15.6); WHITE BLOOD COUNT 12.5 K/mm3 (4.0-10.0)
[2021-06-04 07:33] LABS: CALCIUM 7.5 mg/dL (8.5-10.1)
[2021-06-04 07:34] LABS: ALBUMIN 1.5 g/dl (3.4-5.0); BLOOD UREA NITROGEN 70.8 mg/dL (7-18); MAGNESIUM 1.9 mg/dL (1.8-2.4)
[2021-06-04 07:37] LABS: CREATININE 1.9 mg/dL (0.55-1.3); PHOSPHOROUS 4.8 mg/dL (2.5-4.9)
[2021-06-04 07:39] LABS: BILIRUBIN,TOTAL 0.8 mg/dL (0.2-1); TOT PROT 4.6 g/dl (6.4-8.2)
[2021-06-04] MEDS: AMINO ACIDS/PROTEIN HYDROLYS 30 ML LIQUID.PKT PO SCH ×2 (08:56→17:50)
[2021-06-04] MEDS: SEVELAMER CARBONATE 0.8 GM POWDER PACKET GT SCH ×3 (08:56→17:50)
[2021-06-04] MEDS: MULTIVIT-MINERALS ORAL LIQUID GT SCH (10:33)
[2021-06-04] MEDS: SILVER SULFADIAZINE 1% TOP CREAM 50 GM JAR TP SCH (10:34)
[2021-06-04] MEDS: ASCORBIC ACID 500 MG TABLET (FP) GT SCH ×2 (10:34→22:37)
[2021-06-04] MEDS: ATENOLOL 25 MG TABLET (FP) PEG SCH (10:34)
[2021-06-04] MEDS: APIXABAN 2.5 MG TABLET GT SCH ×2 (10:34→22:37)
[2021-06-04] MEDS: PANTOPRAZOLE SODIUM 40 MG VIAL IVPUSH SCH (10:34)
[2021-06-04] MEDS: COLLAGENASE CLOSTRIDIUM HIST. 30 GRAMS TUBE TP SCH (10:34)
[2021-06-04] MEDS: FLUCONAZOLE 200 MG/NS 100 ML IVPB SCH (10:39)
[2021-06-04] MEDS ORDERED: SODIUM CHLORIDE 250 ML IV PRN ×2 (11:25→20:29)
[2021-06-04 12:22] LABS: ANISOCYTOSIS 0; MACROCYTOSIS 0
[2021-06-04] MEDS ORDERED: METOCLOPRAMIDE HCL INJECTION 10 MG/2 ML VIAL IVPUSH PRN (20:29)
[2021-06-05] MEDS: LEVOTHYROXINE NA 50 MCG TABLET (FP) GT SCH (06:25)
[2021-06-05] MEDS: BANATROL PLUS POWDER PACKET GT SCH ×2 (06:25→13:57)
[2021-06-05] MEDS: INSULIN (LEVEMIR) 100 UNITS/ML UNITS SQ SCH (06:25)
[2021-06-05] MEDS: INSULIN SLIDING SCALE (NOVOLOG) 1 VIAL SQ SCH ×4 (06:26→23:16)
[2021-06-05 09:21] LABS: CALCIUM 7.5 mg/dL (8.5-10.1)
[2021-06-05 09:22] LABS: ALBUMIN 1.4 g/dl (3.4-5.0); BLOOD UREA NITROGEN 48.6 mg/dL (7-18)
[2021-06-05 09:25] LABS: BILIRUBIN,TOTAL 0.7 mg/dL (0.2-1); CREATININE 1.4 mg/dL (0.55-1.3)
[2021-06-05 09:26] LABS: TOT PROT 4.7 g/dl (6.4-8.2)
[2021-06-05] MEDS: PANTOPRAZOLE SODIUM 40 MG VIAL IVPUSH SCH (10:28)
[2021-06-05] MEDS: AMINO ACIDS/PROTEIN HYDROLYS 30 ML LIQUID.PKT GT SCH ×2 (10:31→19:27)
[2021-06-05] MEDS: SEVELAMER CARBONATE 0.8 GM POWDER PACKET GT SCH ×3 (10:32→19:27)
[2021-06-05] MEDS: MULTIVIT-MINERALS ORAL LIQUID GT SCH (10:32)
[2021-06-05] MEDS: ASCORBIC ACID 500 MG TABLET (FP) GT SCH ×2 (10:32→23:11)
[2021-06-05] MEDS: FLUCONAZOLE 100 MG TABLET (UD) PEG SCH (10:33)
[2021-06-05] MEDS: APIXABAN 2.5 MG TABLET GT SCH ×2 (10:33→23:11)
[2021-06-05 11:14] LABS: HEMATOCRIT 27.3 % (32.4-45.2); HEMOGLOBIN 9.3 GM/dL (10.7-15.3); MCH 29.8 pg (25.7-33.7); MEAN CELL VOLUME 87.6 fl (80-96); MEAN PLT VOLUME 8.5 fl (7.5-11.1); PLATELET COUNT 119 10^3/uL (134-434); RBC 3.12 M/mm3 (3.60-5.2); RDW 17.1 % (11.6-15.6)
[2021-06-05] MEDS: COLLAGENASE CLOSTRIDIUM HIST. 30 GRAMS TUBE TP SCH (12:00)
[2021-06-05] MEDS: SILVER SULFADIAZINE 1% TOP CREAM 50 GM JAR TP SCH (12:00)
[2021-06-05] MEDS: ATENOLOL 25 MG TABLET (FP) PEG SCH (13:55)
[2021-06-05] MEDS: ACETAMINOPHEN 650 MG/20.3 ML ORAL SOLUTION (CUPS) PO PRN (19:28)
[2021-06-06] MEDS: LEVOTHYROXINE NA 50 MCG TABLET (FP) GT SCH (07:19)
[2021-06-06] MEDS: INSULIN (LEVEMIR) 100 UNITS/ML UNITS SQ SCH (07:19)
[2021-06-06] MEDS: INSULIN SLIDING SCALE (NOVOLOG) 1 VIAL SQ SCH ×4 (07:19→21:41)
[2021-06-06] MEDS: ALBUMIN HUMAN 25% 12.5 GM/50 ML VIAL IV SCH ×4 (07:55→09:25)
[2021-06-06] MEDS ORDERED: SODIUM CHLORIDE 250 ML IV PRN (08:00)
[2021-06-06] MEDS ORDERED: EPOETIN ALFA-EPBX 10,000 UNIT/ML VIAL IVPUSH ONE (08:00)
[2021-06-06 08:41] LABS: HEMATOCRIT 25.2 % (32.4-45.2); HEMOGLOBIN 8.5 GM/dL (10.7-15.3); MCH 29.7 pg (25.7-33.7); MCHC 33.8 g/dl (32.0-36.0); MEAN CELL VOLUME 87.7 fl (80-96); MEAN PLT VOLUME 8.6 fl (7.5-11.1); PLATELET COUNT 116 10^3/uL (134-434); RBC 2.88 M/mm3 (3.60-5.2); RDW 16.6 % (11.6-15.6); WHITE BLOOD COUNT 7.9 K/mm3 (4.0-10.0)
[2021-06-06 09:17] LABS: BLOOD UREA NITROGEN 62.5 mg/dL (7-18)
[2021-06-06 09:19] LABS: CALCIUM 7.1 mg/dL (8.5-10.1)
[2021-06-06 09:20] LABS: CREATININE 1.7 mg/dL (0.55-1.3); MAGNESIUM 1.9 mg/dL (1.8-2.4); PHOSPHOROUS 4.7 mg/dL (2.5-4.9)
[2021-06-06] MEDS: SEVELAMER CARBONATE 0.8 GM POWDER PACKET GT SCH ×3 (09:50→17:25)
[2021-06-06] MEDS: AMINO ACIDS/PROTEIN HYDROLYS 30 ML LIQUID.PKT GT SCH ×2 (09:50→17:25)
[2021-06-06] MEDS: ATENOLOL 25 MG TABLET (FP) PEG SCH (09:50)
[2021-06-06] MEDS: ASCORBIC ACID 500 MG TABLET (FP) GT SCH ×2 (11:33→21:40)
[2021-06-06] MEDS: APIXABAN 2.5 MG TABLET GT SCH ×2 (11:33→21:41)
[2021-06-06] MEDS: FLUCONAZOLE 100 MG TABLET (UD) PEG SCH (11:34)
[2021-06-06] MEDS: MULTIVIT-MINERALS ORAL LIQUID GT SCH (11:34)
[2021-06-06] MEDS: COLLAGENASE CLOSTRIDIUM HIST. 30 GRAMS TUBE TP SCH (12:00)
[2021-06-06] MEDS: SILVER SULFADIAZINE 1% TOP CREAM 50 GM JAR TP SCH (12:00)
[2021-06-06] MEDS: PANTOPRAZOLE SODIUM 40 MG VIAL IVPUSH SCH (15:52)
[2021-06-06] MEDS: ACETAMINOPHEN 650 MG/20.3 ML ORAL SOLUTION (CUPS) PO PRN (21:41)
[2021-06-07] MEDS ORDERED: SODIUM CHLORIDE 500 ML IV STA (05:33)
[2021-06-07] MEDS ORDERED: NOREPINEPHRINE BITARTRATE 4 MG/4 ML ML IV ONE (07:13)
[2021-06-07] MEDS ORDERED: LACTATED RINGERS SOLUTION 1000 ML INFUS.BAG IV ONE ×3 (07:26→07:27)
[2021-06-07] MEDS: NOREPINEPHRINE BITARTRATE 16,000 MCG in SODIUM CHLORIDE 484 ML IV SCH (07:30)
[2021-06-07 08:13] LABS: HEMATOCRIT 21.4 % (32.4-45.2); MCH 29.5 pg (25.7-33.7); MCHC 32.8 g/dl (32.0-36.0); MEAN CELL VOLUME 89.8 fl (80-96); MEAN PLT VOLUME 8.7 fl (7.5-11.1); PLATELET COUNT 86 10^3/uL (134-434); RBC 2.38 M/mm3 (3.60-5.2); RDW 16.9 % (11.6-15.6)
[2021-06-07 08:33] LABS: WHITE BLOOD COUNT 1.9 K/mm3 (4.0-10.0)
[2021-06-07 08:35] LABS: EPI CELLS >36 /uL (0-25.1); HYALINE CASTS 20 /uL (0-3.1); URINE APPEARANCE TURBID; URINE BACTERIA 195 /uL (0-1359); URINE BILIRUBIN NEGATIVE (NEGATIVE); URINE COLOR YELLOW; URINE GLUCOSE (UA) TRACE (NEGATIVE); URINE KETONE NEGATIVE (NEGATIVE); URINE LEUK ESTERASE 2+ (NEGATIVE); URINE NITRITE NEGATIVE (NEGATIVE); URINE PROTEIN 4+ (NEGATIVE); URINE RBC 4487 /uL (0-23.9); URINE UROBILINOGEN 0.2 mg/dL (0.2-1.0); URINE WBC 15791 /uL (0-25.8)
[2021-06-07 08:36] LABS: ALBUMIN 1.3 g/dl (3.4-5.0); CALCIUM 7.2 mg/dL (8.5-10.1)
[2021-06-07 08:37] LABS: BLOOD UREA NITROGEN 42.2 mg/dL (7-18); MAGNESIUM 1.6 mg/dL (1.8-2.4)
[2021-06-07 08:40] LABS: CREATININE 1.2 mg/dL (0.55-1.3)
[2021-06-07 08:41] LABS: BILIRUBIN,TOTAL 0.6 mg/dL (0.2-1); TOT PROT 3.8 g/dl (6.4-8.2)
[2021-06-07] MEDS ORDERED: MEROPENEM 1 GM in DEXTROSE 5%-WATER 100 ML IVPB ONE (09:15)
[2021-06-07 09:48] LABS: ANISOCYTOSIS 0; HELMET CELLS 0; HOWELL-JOLLY BODIES 0; MACROCYTOSIS 0; OVALOCYTE 0; ROULEAU 0; SICKELED CELLS 0; TARGET CELLS 0; TEAR DROP CELLS 0; TOXIC GRANULATION 0
[2021-06-07] MEDS ORDERED: PANTOPRAZOLE 40 MG TABLET PO SCH (10:00)
[2021-06-07] MEDS ORDERED: CASPOFUNGIN ACETATE 70 MG in SODIUM CHLORIDE 250 ML IVPB ONE (10:00)
[2021-06-07] MEDS: INSULIN (LEVEMIR) 100 UNITS/ML UNITS SQ SCH (10:04)
[2021-06-07] MEDS ORDERED: MEROPENEM 1 GM VIAL (RESTRICTED TO ID) IVPB ONE (10:08)
[2021-06-07] MEDS ORDERED: DEXTROSE 5%-WATER 100 ML IVPB ONE ×2 (10:08→21:06)
[2021-06-07] MEDS: LEVOTHYROXINE NA 50 MCG TABLET (FP) GT SCH (10:13)
[2021-06-07] MEDS: SILVER SULFADIAZINE 1% TOP CREAM 50 GM JAR TP SCH (10:13)
[2021-06-07] MEDS: APIXABAN 2.5 MG TABLET GT SCH ×2 (10:13→21:44)
[2021-06-07] MEDS: ASCORBIC ACID 500 MG TABLET (FP) GT SCH ×2 (10:13→21:46)
[2021-06-07] MEDS: COLLAGENASE CLOSTRIDIUM HIST. 30 GRAMS TUBE TP SCH (10:13)
[2021-06-07] MEDS: MUPIROCIN 2% TOPICAL OINTMENT FOR DECOLONIZATION NS SCH ×2 (10:30→22:29)
[2021-06-07] MEDS: INSULIN SLIDING SCALE (NOVOLOG) 1 VIAL SQ SCH ×4 (10:56→21:45)
[2021-06-07] MEDS ORDERED: VANCOMYCIN/WATER FOR INJ (PEG) 1,000 MG/200 ML BAG IVPB ONE ×2 (11:00→13:30)
[2021-06-07] MEDS: MULTIVIT-MINERALS ORAL LIQUID GT SCH (11:54)
[2021-06-07] MEDS: SEVELAMER CARBONATE 0.8 GM POWDER PACKET GT SCH ×3 (11:54→17:08)
[2021-06-07] MEDS: FAMOTIDINE 40 MG/5 ML ORAL SUSPENSION NGT SCH ×2 (11:54→21:46)
[2021-06-07] MEDS: AMINO ACIDS/PROTEIN HYDROLYS 30 ML LIQUID.PKT GT SCH ×2 (11:57→17:08)
[2021-06-07] MEDS ORDERED: VASOPRESSIN 20 UNITS/ML VIAL IV ONE (12:07)
[2021-06-07] MEDS: VASOPRESSIN 40 UNITS/100 ML BAG IV SCH (12:23)
[2021-06-07] MEDS ORDERED: GENTAMICIN 80 MG PREMIXED IVPB 80 MG/100 ML BAG IVPB ONE (13:16)
[2021-06-07] MEDS: HYDROCORTISONE SOD SUCCINATE 100 MG/2 ML VIAL IVPB SCH ×2 (14:14→21:37)
[2021-06-07] MEDS: FLUDROCORTISONE ACETATE 0.1 MG TABLET (FP) NGT SCH (14:14)
[2021-06-07] MEDS ORDERED: DOPAMINE 400 MG/D5W - 400,000 MCG/250 ML INFUS.BAG IVPB SCH (15:45)
[2021-06-07] MEDS ORDERED: DEXTROSE 50%-WATER 25 GM/50 ML DISP.SYRIN ONE (16:44)
[2021-06-07] MEDS ORDERED: DEXTROSE 50%-WATER - 25 GM/50 ML VIAL IVPUSH ONE ×2 (16:45→18:05)
[2021-06-07] MEDS ORDERED: MAGNESIUM SULF 50% (8.12 MEQ/2 ML-1 GM VIAL) IVPB ONE (18:41)
[2021-06-07] MEDS ORDERED: MEROPENEM 500 MG VIAL (RESTRICTED TO ID) IVPB ONE (21:06)
[2021-06-07] MEDS: CHLORHEXIDINE GLUCONATE 4% CLEANSER FOR DECOLONIZATION TP SCH (21:44)
[2021-06-07] MEDS: MEROPENEM 500 MG in DEXTROSE 5%-WATER 100 ML IVPB SCH (21:44)
[2021-06-08] MEDS ORDERED: ACETAMINOPHEN 1000 MG/100 ML BAG IVPB ONE (02:27)
[2021-06-08] MEDS: HYDROCORTISONE SOD SUCCINATE 100 MG/2 ML VIAL IVPB SCH ×4 (03:22→21:34)
[2021-06-08 07:11] LABS: HEMATOCRIT 27.5 % (32.4-45.2); HEMOGLOBIN 9.1 GM/dL (10.7-15.3); MCH 29.6 pg (25.7-33.7); MCHC 33.3 g/dl (32.0-36.0); MEAN CELL VOLUME 89.1 fl (80-96); MEAN PLT VOLUME 9.1 fl (7.5-11.1); PLATELET COUNT 141 10^3/uL (134-434); RBC 3.08 M/mm3 (3.60-5.2); RDW 17.3 % (11.6-15.6); WHITE BLOOD COUNT 2.6 K/mm3 (4.0-10.0)
[2021-06-08 07:34] LABS: ALBUMIN 1.3 g/dl (3.4-5.0); BLOOD UREA NITROGEN 49.2 mg/dL (7-18); CALCIUM 7.2 mg/dL (8.5-10.1)
[2021-06-08 07:35] LABS: MAGNESIUM 1.8 mg/dL (1.8-2.4)
[2021-06-08 07:37] LABS: CREATININE 1.4 mg/dL (0.55-1.3)
[2021-06-08 07:38] LABS: BILIRUBIN,TOTAL 0.7 mg/dL (0.2-1); TOT PROT 4.3 g/dl (6.4-8.2)
[2021-06-08] MEDS: INSULIN SLIDING SCALE (NOVOLOG) 1 VIAL SQ SCH ×3 (10:34→16:20)
[2021-06-08] MEDS: INSULIN (LEVEMIR) 100 UNITS/ML UNITS SQ SCH (10:34)
[2021-06-08] MEDS: AMINO ACIDS/PROTEIN HYDROLYS 30 ML LIQUID.PKT GT SCH ×2 (10:35→18:07)
[2021-06-08] MEDS ORDERED: DEXTROSE 5%-WATER 100 ML IVPB ONE ×2 (10:43→21:26)
[2021-06-08] MEDS ORDERED: MEROPENEM 500 MG VIAL (RESTRICTED TO ID) IVPB ONE ×2 (10:43→21:26)
[2021-06-08] MEDS: SEVELAMER CARBONATE 0.8 GM POWDER PACKET GT SCH ×3 (10:45→18:07)
[2021-06-08] MEDS: PHENYLEPHRINE NS PREMIX 50,000 MCG/500 ML BAG CVP SCH ×3 (10:46→22:15)
[2021-06-08] MEDS: APIXABAN 2.5 MG TABLET GT SCH ×2 (10:47→21:34)
[2021-06-08] MEDS: FLUDROCORTISONE ACETATE 0.1 MG TABLET (FP) NGT SCH (10:47)
[2021-06-08] MEDS: ASCORBIC ACID 500 MG TABLET (FP) GT SCH ×2 (10:48→21:34)
[2021-06-08] MEDS: MEROPENEM 500 MG in DEXTROSE 5%-WATER 100 ML IVPB SCH ×2 (10:48→21:35)
[2021-06-08 10:49] LABS: ANISOCYTOSIS 2+; MACROCYTOSIS 0; OVALOCYTE 1+; TARGET CELLS 1+
[2021-06-08] MEDS ORDERED: EPOETIN ALFA-EPBX 10,000 UNIT/ML VIAL IVPUSH ONE (11:00)
[2021-06-08] MEDS ORDERED: SODIUM CHLORIDE 250 ML IV PRN (11:00)
[2021-06-08] MEDS: MULTIVIT-MINERALS ORAL LIQUID GT SCH (11:03)
[2021-06-08] MEDS: FAMOTIDINE 40 MG/5 ML ORAL SUSPENSION NGT SCH ×2 (11:03→21:35)
[2021-06-08] MEDS: VASOPRESSIN 40 UNITS/100 ML BAG IV SCH ×3 (11:04→21:59)
[2021-06-08] MEDS: MUPIROCIN 2% TOPICAL OINTMENT FOR DECOLONIZATION NS SCH ×2 (11:11→21:34)
[2021-06-08] MEDS: SILVER SULFADIAZINE 1% TOP CREAM 50 GM JAR TP SCH (11:12)
[2021-06-08] MEDS: COLLAGENASE CLOSTRIDIUM HIST. 30 GRAMS TUBE TP SCH (11:12)
[2021-06-08] MEDS: LEVOTHYROXINE NA 50 MCG TABLET (FP) GT SCH (11:15)
[2021-06-08] MEDS: DEXTROSE 50%-WATER - 25 GM/50 ML VIAL IVPUSH PRN (11:23)
[2021-06-08] MEDS ORDERED: DEXTROSE 50%-WATER 25 GM/50 ML DISP.SYRIN ONE (11:33)
[2021-06-08] MEDS: CASPOFUNGIN ACETATE 50 MG in SODIUM CHLORIDE 250 ML IVPB SCH (13:48)
[2021-06-08] MEDS: NOREPINEPHRINE BITARTRATE 16,000 MCG in SODIUM CHLORIDE 484 ML IV SCH (17:00)
[2021-06-08] MEDS ORDERED: METOCLOPRAMIDE HCL INJECTION 10 MG/2 ML VIAL IVPUSH PRN (21:07)
[2021-06-08] MEDS ORDERED: ACETAMINOPHEN 650 MG/20.3 ML ORAL SOLUTION (CUPS) PO PRN (21:07)
[2021-06-08] MEDS: CHLORHEXIDINE GLUCONATE 4% CLEANSER FOR DECOLONIZATION TP SCH (21:35)
[2021-06-08] MEDS ORDERED: INSULIN SLIDING SCALE (NOVOLOG) 1 VIAL SQ SCH (22:00)
[2021-06-09] MEDS: HYDROCORTISONE SOD SUCCINATE 100 MG/2 ML VIAL IVPB SCH ×4 (02:00→20:28)
[2021-06-09] MEDS ORDERED: PHENYLEPHRINE HCL 10 MG/1 ML SINGLE DOSE VIAL ONE (03:41)
[2021-06-09] MEDS: PHENYLEPHRINE NS PREMIX 50,000 MCG/500 ML BAG CVP SCH ×4 (03:46→19:47)
[2021-06-09] MEDS: INSULIN SLIDING SCALE (NOVOLOG) 1 VIAL SQ SCH ×4 (06:12→21:15)
[2021-06-09] MEDS: INSULIN (LEVEMIR) 100 UNITS/ML UNITS SQ SCH (06:12)
[2021-06-09] MEDS: LEVOTHYROXINE NA 50 MCG TABLET (FP) GT SCH (06:20)
[2021-06-09 07:32] LABS: ALBUMIN 1.2 g/dl (3.4-5.0); CALCIUM 7.3 mg/dL (8.5-10.1)
[2021-06-09 07:33] LABS: BLOOD UREA NITROGEN 57.5 mg/dL (7-18); MAGNESIUM 1.8 mg/dL (1.8-2.4)
[2021-06-09 07:35] LABS: CREATININE 1.5 mg/dL (0.55-1.3); HEMATOCRIT 25.8 % (32.4-45.2); HEMOGLOBIN 8.4 GM/dL (10.7-15.3); MCH 29.3 pg (25.7-33.7); MCHC 32.7 g/dl (32.0-36.0); MEAN CELL VOLUME 89.5 fl (80-96); MEAN PLT VOLUME 9.5 fl (7.5-11.1); PLATELET COUNT 105 10^3/uL (134-434); RBC 2.88 M/mm3 (3.60-5.2); RDW 17.9 % (11.6-15.6); WHITE BLOOD COUNT 8.4 K/mm3 (4.0-10.0)
[2021-06-09 07:36] LABS: PHOSPHOROUS 5.4 mg/dL (2.5-4.9)
[2021-06-09 07:37] LABS: BILIRUBIN,TOTAL 0.6 mg/dL (0.2-1); TOT PROT 4.2 g/dl (6.4-8.2)
[2021-06-09] MEDS ORDERED: MEROPENEM 500 MG VIAL (RESTRICTED TO ID) IVPB ONE ×2 (08:01→20:17)
[2021-06-09] MEDS ORDERED: DEXTROSE 5%-WATER 100 ML IVPB ONE ×2 (08:01→20:17)
[2021-06-09] MEDS: NOREPINEPHRINE BITARTRATE 16,000 MCG in SODIUM CHLORIDE 484 ML IV SCH (08:33)
[2021-06-09] MEDS: VASOPRESSIN 40 UNITS/100 ML BAG IV SCH ×2 (08:33→17:47)
[2021-06-09] MEDS: AMINO ACIDS/PROTEIN HYDROLYS 30 ML LIQUID.PKT GT SCH ×2 (08:34→17:03)
[2021-06-09] MEDS: SEVELAMER CARBONATE 0.8 GM POWDER PACKET GT SCH ×3 (08:35→17:02)
[2021-06-09] MEDS: APIXABAN 2.5 MG TABLET GT SCH ×2 (09:01→21:07)
[2021-06-09] MEDS: MULTIVIT-MINERALS ORAL LIQUID GT SCH (09:01)
[2021-06-09] MEDS: MUPIROCIN 2% TOPICAL OINTMENT FOR DECOLONIZATION NS SCH ×2 (09:02→21:07)
[2021-06-09] MEDS: FAMOTIDINE 40 MG/5 ML ORAL SUSPENSION NGT SCH ×2 (09:02→21:08)
[2021-06-09] MEDS: MEROPENEM 500 MG in DEXTROSE 5%-WATER 100 ML IVPB SCH ×2 (09:02→21:07)
[2021-06-09] MEDS: FLUDROCORTISONE ACETATE 0.1 MG TABLET (FP) NGT SCH (09:02)
[2021-06-09] MEDS: ASCORBIC ACID 500 MG TABLET (FP) GT SCH ×2 (09:03→21:08)
[2021-06-09] MEDS: SILVER SULFADIAZINE 1% TOP CREAM 50 GM JAR TP SCH (09:03)
[2021-06-09] MEDS: COLLAGENASE CLOSTRIDIUM HIST. 30 GRAMS TUBE TP SCH (09:04)
[2021-06-09 09:34] LABS: ANISOCYTOSIS 2+; MACROCYTOSIS 0
[2021-06-09] MEDS: CASPOFUNGIN ACETATE 50 MG in SODIUM CHLORIDE 250 ML IVPB SCH (14:30)
[2021-06-09] MEDS ORDERED: INSULIN (NOVOLOG) ASPART 100 UNITS/ML 10ML VIAL ONE (20:18)
[2021-06-09] MEDS: CHLORHEXIDINE GLUCONATE 4% CLEANSER FOR DECOLONIZATION TP SCH (21:07)
[2021-06-10] MEDS: PHENYLEPHRINE NS PREMIX 50,000 MCG/500 ML BAG CVP SCH ×5 (01:00→23:23)
[2021-06-10] MEDS: HYDROCORTISONE SOD SUCCINATE 100 MG/2 ML VIAL IVPB SCH ×4 (03:31→21:37)
[2021-06-10] MEDS: NOREPINEPHRINE BITARTRATE 16,000 MCG in SODIUM CHLORIDE 484 ML IV SCH (05:00)
[2021-06-10] MEDS: VASOPRESSIN 40 UNITS/100 ML BAG IV SCH ×2 (05:00→14:13)
[2021-06-10] MEDS: INSULIN SLIDING SCALE (NOVOLOG) 1 VIAL SQ SCH ×4 (06:30→21:39)
[2021-06-10] MEDS: INSULIN (LEVEMIR) 100 UNITS/ML UNITS SQ SCH (06:31)
[2021-06-10] MEDS: LEVOTHYROXINE NA 50 MCG TABLET (FP) GT SCH (06:31)
[2021-06-10 07:27] LABS: HEMATOCRIT 26.8 % (32.4-45.2); HEMOGLOBIN 8.7 GM/dL (10.7-15.3); MCH 29.1 pg (25.7-33.7); MCHC 32.4 g/dl (32.0-36.0); MEAN CELL VOLUME 89.9 fl (80-96); MEAN PLT VOLUME 10.1 fl (7.5-11.1); PLATELET COUNT 73 10^3/uL (134-434); RBC 2.98 M/mm3 (3.60-5.2); RDW 18.1 % (11.6-15.6); WHITE BLOOD COUNT 19.6 K/mm3 (4.0-10.0)
[2021-06-10 07:46] LABS: BLOOD UREA NITROGEN 59.8 mg/dL (7-18); CALCIUM 7.2 mg/dL (8.5-10.1); MAGNESIUM 1.7 mg/dL (1.8-2.4)
[2021-06-10 07:47] LABS: ALBUMIN 1.1 g/dl (3.4-5.0)
[2021-06-10 07:49] LABS: PHOSPHOROUS 5.2 mg/dL (2.5-4.9)
[2021-06-10 07:50] LABS: CREATININE 1.6 mg/dL (0.55-1.3)
[2021-06-10 07:51] LABS: BILIRUBIN,TOTAL 0.6 mg/dL (0.2-1); TOT PROT 4.1 g/dl (6.4-8.2)
[2021-06-10] MEDS ORDERED: MAGNESIUM SULFATE IN WATER 2 GM/50 ML IVPB IVPB ONE (08:30)
[2021-06-10] MEDS ORDERED: DEXTROSE 5%-WATER 100 ML IVPB ONE (08:36)
[2021-06-10] MEDS ORDERED: MEROPENEM 500 MG VIAL (RESTRICTED TO ID) IVPB ONE (08:36)
[2021-06-10] MEDS: AMINO ACIDS/PROTEIN HYDROLYS 30 ML LIQUID.PKT GT SCH ×2 (08:56→17:18)
[2021-06-10] MEDS: SEVELAMER CARBONATE 0.8 GM POWDER PACKET GT SCH ×3 (08:56→17:18)
[2021-06-10] MEDS: MULTIVIT-MINERALS ORAL LIQUID GT SCH (09:01)
[2021-06-10] MEDS: FLUDROCORTISONE ACETATE 0.1 MG TABLET (FP) NGT SCH (09:01)
[2021-06-10] MEDS: APIXABAN 2.5 MG TABLET GT SCH ×2 (09:01→21:39)
[2021-06-10] MEDS: MEROPENEM 500 MG in DEXTROSE 5%-WATER 100 ML IVPB SCH (09:01)
[2021-06-10] MEDS: MUPIROCIN 2% TOPICAL OINTMENT FOR DECOLONIZATION NS SCH ×2 (09:01→21:39)
[2021-06-10] MEDS: COLLAGENASE CLOSTRIDIUM HIST. 30 GRAMS TUBE TP SCH (09:02)
[2021-06-10] MEDS: SILVER SULFADIAZINE 1% TOP CREAM 50 GM JAR TP SCH (09:02)
[2021-06-10] MEDS: ASCORBIC ACID 500 MG TABLET (FP) GT SCH ×2 (09:02→21:40)
[2021-06-10] MEDS: FAMOTIDINE 40 MG/5 ML ORAL SUSPENSION NGT SCH ×2 (09:02→21:39)
[2021-06-10 09:35] LABS: ANISOCYTOSIS 0; MACROCYTOSIS 0; PLATELET ESTIMATE DECREASED
[2021-06-10] MEDS ORDERED: PIPERACILLIN/TAZOBACTAM 2.25 GM VIAL IVPB ONE ×2 (13:43→20:11)
[2021-06-10] MEDS ORDERED: DEXTROSE 5%-WATER - 50 ML IVPB ONE ×2 (13:44→20:12)
[2021-06-10] MEDS: PIPERACILLIN/TAZOB 2.25 GM 2.25 GM in DEXTROSE 5%-WATER - 50 ML IVPB SCH ×2 (14:14→21:37)
[2021-06-10] MEDS ORDERED: MEROPENEM 1 GM in DEXTROSE 5%-WATER 100 ML IVPB SCH (15:00)
[2021-06-10] MEDS: CHLORHEXIDINE GLUCONATE 4% CLEANSER FOR DECOLONIZATION TP SCH (21:39)
[2021-06-11] MEDS ORDERED: PIPERACILLIN/TAZOBACTAM 2.25 GM VIAL IVPB ONE ×4 (02:19→21:24)
[2021-06-11] MEDS ORDERED: DEXTROSE 5%-WATER - 50 ML IVPB ONE ×4 (02:20→21:24)
[2021-06-11] MEDS: HYDROCORTISONE SOD SUCCINATE 100 MG/2 ML VIAL IVPB SCH ×4 (02:38→22:31)
[2021-06-11] MEDS: PIPERACILLIN/TAZOB 2.25 GM 2.25 GM in DEXTROSE 5%-WATER - 50 ML IVPB SCH ×4 (02:39→22:31)
[2021-06-11] MEDS: PHENYLEPHRINE NS PREMIX 50,000 MCG/500 ML BAG CVP SCH ×3 (04:03→20:20)
[2021-06-11] MEDS: INSULIN SLIDING SCALE (NOVOLOG) 1 VIAL SQ SCH ×4 (06:01→22:32)
[2021-06-11] MEDS: INSULIN (LEVEMIR) 100 UNITS/ML UNITS SQ SCH (06:01)
[2021-06-11] MEDS: LEVOTHYROXINE NA 50 MCG TABLET (FP) GT SCH (06:01)
[2021-06-11 06:38] LABS: CALCIUM 7.6 mg/dL (8.5-10.1)
[2021-06-11 06:39] LABS: ALBUMIN 0.9 g/dl (3.4-5.0); BLOOD UREA NITROGEN 68.9 mg/dL (7-18); MAGNESIUM 1.9 mg/dL (1.8-2.4)
[2021-06-11 06:42] LABS: CREATININE 1.6 mg/dL (0.55-1.3); PHOSPHOROUS 5.4 mg/dL (2.5-4.9)
[2021-06-11 06:43] LABS: BILIRUBIN,TOTAL 0.8 mg/dL (0.2-1); HEMATOCRIT 26.6 % (32.4-45.2); HEMOGLOBIN 8.5 GM/dL (10.7-15.3); MCH 28.7 pg (25.7-33.7); MCHC 31.9 g/dl (32.0-36.0); MEAN PLT VOLUME 10.4 fl (7.5-11.1); PLATELET COUNT 44 10^3/uL (134-434); RBC 2.95 M/mm3 (3.60-5.2); WHITE BLOOD COUNT 25.9 K/mm3 (4.0-10.0)
[2021-06-11] MEDS: SEVELAMER CARBONATE 0.8 GM POWDER PACKET GT SCH ×3 (09:48→16:35)
[2021-06-11] MEDS: FLUDROCORTISONE ACETATE 0.1 MG TABLET (FP) NGT SCH (09:48)
[2021-06-11] MEDS: MULTIVIT-MINERALS ORAL LIQUID GT SCH (09:48)
[2021-06-11] MEDS: APIXABAN 2.5 MG TABLET GT SCH ×2 (09:48→22:32)
[2021-06-11] MEDS: AMINO ACIDS/PROTEIN HYDROLYS 30 ML LIQUID.PKT GT SCH ×2 (09:49→16:45)
[2021-06-11] MEDS: COLLAGENASE CLOSTRIDIUM HIST. 30 GRAMS TUBE TP SCH (09:49)
[2021-06-11] MEDS: ASCORBIC ACID 500 MG TABLET (FP) GT SCH ×2 (09:49→22:32)
[2021-06-11] MEDS: MUPIROCIN 2% TOPICAL OINTMENT FOR DECOLONIZATION NS SCH ×2 (09:49→22:33)
[2021-06-11] MEDS: FAMOTIDINE 40 MG/5 ML ORAL SUSPENSION NGT SCH ×2 (09:49→22:32)
[2021-06-11] MEDS: SILVER SULFADIAZINE 1% TOP CREAM 50 GM JAR TP SCH (09:50)
[2021-06-11 10:39] LABS: ANISOCYTOSIS 0; MACROCYTOSIS 0; TARGET CELLS 1+
[2021-06-11] MEDS: FENTANYL NS IVPB 500 MCG/100 ML BAG IVPB SCH (11:35)
[2021-06-11] MEDS: KCL 10 MEQ IVPB 10 MEQ/100 ML INFUS.BAG IVPB SCH ×3 (11:36→14:24)
[2021-06-11] MEDS: NOREPINEPHRINE BITARTRATE 16,000 MCG in SODIUM CHLORIDE 484 ML IV SCH (14:09)
[2021-06-11] MEDS: VASOPRESSIN 40 UNITS/100 ML BAG IV SCH ×2 (14:10→23:53)
[2021-06-11] MEDS: CHLORHEXIDINE GLUCONATE 4% CLEANSER FOR DECOLONIZATION TP SCH (22:32)
[2021-06-11] MEDS ORDERED: DEXTROSE 50%-WATER 25 GM/50 ML DISP.SYRIN ONE (22:35)
[2021-06-11] MEDS: DEXTROSE 50%-WATER - 25 GM/50 ML VIAL IVPUSH PRN (22:47)
[2021-06-12] MEDS: PHENYLEPHRINE NS PREMIX 50,000 MCG/500 ML BAG CVP SCH ×5 (01:11→20:00)
[2021-06-12] MEDS ORDERED: DEXTROSE 5%-WATER - 50 ML IVPB ONE ×4 (02:49→21:50)
[2021-06-12] MEDS ORDERED: PIPERACILLIN/TAZOBACTAM 2.25 GM VIAL IVPB ONE ×4 (02:49→21:50)
[2021-06-12] MEDS: HYDROCORTISONE SOD SUCCINATE 100 MG/2 ML VIAL IVPB SCH ×4 (03:01→22:40)
[2021-06-12] MEDS: PIPERACILLIN/TAZOB 2.25 GM 2.25 GM in DEXTROSE 5%-WATER - 50 ML IVPB SCH ×4 (03:01→22:38)
[2021-06-12] MEDS: INSULIN (LEVEMIR) 100 UNITS/ML UNITS SQ SCH (06:07)
[2021-06-12] MEDS: FENTANYL NS IVPB 500 MCG/100 ML BAG IVPB SCH ×2 (06:07→18:18)
[2021-06-12] MEDS: INSULIN SLIDING SCALE (NOVOLOG) 1 VIAL SQ SCH ×4 (06:08→22:42)
[2021-06-12] MEDS: LEVOTHYROXINE NA 50 MCG TABLET (FP) GT SCH (06:08)
[2021-06-12 07:39] LABS: CALCIUM 8.3 mg/dL (8.5-10.1)
[2021-06-12 07:40] LABS: ALBUMIN 0.9 g/dl (3.4-5.0); BLOOD UREA NITROGEN 73.1 mg/dL (7-18); MAGNESIUM 2.1 mg/dL (1.8-2.4)
[2021-06-12 07:43] LABS: CREATININE 1.5 mg/dL (0.55-1.3); PHOSPHOROUS 5.8 mg/dL (2.5-4.9)
[2021-06-12 07:44] LABS: TOT PROT 4.2 g/dl (6.4-8.2)
[2021-06-12 07:45] LABS: BILIRUBIN,TOTAL 0.5 mg/dL (0.2-1)
[2021-06-12 07:50] LABS: HEMATOCRIT 27.6 % (32.4-45.2); HEMOGLOBIN 8.7 GM/dL (10.7-15.3); MCH 28.7 pg (25.7-33.7); MCHC 31.7 g/dl (32.0-36.0); MEAN CELL VOLUME 90.5 fl (80-96); MEAN PLT VOLUME 11.9 fl (7.5-11.1); PLATELET COUNT 45 10^3/uL (134-434); RBC 3.05 M/mm3 (3.60-5.2)
[2021-06-12] MEDS: AMINO ACIDS/PROTEIN HYDROLYS 30 ML LIQUID.PKT GT SCH ×2 (10:16→17:39)
[2021-06-12] MEDS: SEVELAMER CARBONATE 0.8 GM POWDER PACKET GT SCH ×3 (10:16→17:39)
[2021-06-12] MEDS: MULTIVIT-MINERALS ORAL LIQUID GT SCH (10:17)
[2021-06-12] MEDS: APIXABAN 2.5 MG TABLET GT SCH ×2 (10:17→22:41)
[2021-06-12] MEDS: ASCORBIC ACID 500 MG TABLET (FP) GT SCH ×2 (10:17→22:41)
[2021-06-12] MEDS: FAMOTIDINE 40 MG/5 ML ORAL SUSPENSION NGT SCH ×2 (10:17→22:41)
[2021-06-12] MEDS: FLUDROCORTISONE ACETATE 0.1 MG TABLET (FP) NGT SCH (10:17)
[2021-06-12] MEDS: COLLAGENASE CLOSTRIDIUM HIST. 30 GRAMS TUBE TP SCH (10:17)
[2021-06-12] MEDS: SILVER SULFADIAZINE 1% TOP CREAM 50 GM JAR TP SCH (10:18)
[2021-06-12] MEDS ORDERED: DEXTROSE 50%-WATER 25 GM/50 ML DISP.SYRIN ONE (11:06)
[2021-06-12 11:30] LABS: ANISOCYTOSIS 2+; MACROCYTOSIS 0; OVALOCYTE 1+; TARGET CELLS 1+
[2021-06-12] MEDS ORDERED: DEXTROSE 50%-WATER 25 GM/50 ML DISP.SYRIN IVPUSH ONE (11:30)
[2021-06-12] MEDS: VASOPRESSIN 40 UNITS/100 ML BAG IV SCH ×2 (14:01→20:00)
[2021-06-12 14:32] LABS: CALCIUM 8.1 mg/dL (8.5-10.1)
[2021-06-12 14:33] LABS: BLOOD UREA NITROGEN 71.9 mg/dL (7-18)
[2021-06-12 14:36] LABS: CREATININE 1.5 mg/dL (0.55-1.3)
[2021-06-12] MEDS: CHLORHEXIDINE GLUCONATE 4% CLEANSER FOR DECOLONIZATION TP SCH (22:42)
[2021-06-13] MEDS: PHENYLEPHRINE NS PREMIX 50,000 MCG/500 ML BAG CVP SCH ×4 (02:16→17:24)
[2021-06-13] MEDS ORDERED: DEXTROSE 5%-WATER - 50 ML IVPB ONE ×4 (03:17→21:36)
[2021-06-13] MEDS ORDERED: PIPERACILLIN/TAZOBACTAM 2.25 GM VIAL IVPB ONE ×4 (03:17→21:35)
[2021-06-13] MEDS: PIPERACILLIN/TAZOB 2.25 GM 2.25 GM in DEXTROSE 5%-WATER - 50 ML IVPB SCH ×4 (03:27→21:59)
[2021-06-13] MEDS: HYDROCORTISONE SOD SUCCINATE 100 MG/2 ML VIAL IVPB SCH ×4 (03:29→21:59)
[2021-06-13] MEDS: FENTANYL NS IVPB 500 MCG/100 ML BAG IVPB SCH ×4 (04:40→17:23)
[2021-06-13 07:02] LABS: HEMATOCRIT 26.4 % (32.4-45.2); HEMOGLOBIN 8.1 GM/dL (10.7-15.3); MCH 28.2 pg (25.7-33.7); MCHC 30.8 g/dl (32.0-36.0); MEAN CELL VOLUME 91.7 fl (80-96); MEAN PLT VOLUME 11.5 fl (7.5-11.1); PLATELET COUNT 48 10^3/uL (134-434); RBC 2.88 M/mm3 (3.60-5.2); RDW 19.1 % (11.6-15.6)
[2021-06-13] MEDS: INSULIN SLIDING SCALE (NOVOLOG) 1 VIAL SQ SCH ×4 (07:03→22:00)
[2021-06-13] MEDS: INSULIN (LEVEMIR) 100 UNITS/ML UNITS SQ SCH (07:03)
[2021-06-13 07:05] LABS: WHITE BLOOD COUNT 36.3 K/mm3 (4.0-10.0)
[2021-06-13 07:22] LABS: CALCIUM 8.2 mg/dL (8.5-10.1)
[2021-06-13 07:23] LABS: ALBUMIN 0.8 g/dl (3.4-5.0); MAGNESIUM 2.1 mg/dL (1.8-2.4)
[2021-06-13 07:26] LABS: CREATININE 1.5 mg/dL (0.55-1.3); PHOSPHOROUS 6.3 mg/dL (2.5-4.9)
[2021-06-13 07:27] LABS: BILIRUBIN,TOTAL 0.6 mg/dL (0.2-1); TOT PROT 4.1 g/dl (6.4-8.2)
[2021-06-13] MEDS: LEVOTHYROXINE NA 50 MCG TABLET (FP) GT SCH (07:28)
[2021-06-13] MEDS: SODIUM BICARBONATE 8.4% 50 MEQ/50 ML DISP.SYRIN IVPUSH SCH ×2 (07:35→08:35)
[2021-06-13] MEDS: SEVELAMER CARBONATE 0.8 GM POWDER PACKET GT SCH ×3 (08:00→17:16)
[2021-06-13] MEDS: AMINO ACIDS/PROTEIN HYDROLYS 30 ML LIQUID.PKT GT SCH ×2 (08:00→17:16)
[2021-06-13 09:25] LABS: ANISOCYTOSIS 1+; MACROCYTOSIS 1+; PLATELET ESTIMATE DECREASED
[2021-06-13] MEDS: FLUDROCORTISONE ACETATE 0.1 MG TABLET (FP) NGT SCH (10:27)
[2021-06-13] MEDS: MULTIVIT-MINERALS ORAL LIQUID GT SCH (10:27)
[2021-06-13] MEDS: APIXABAN 2.5 MG TABLET GT SCH ×2 (10:27→21:59)
[2021-06-13] MEDS: FAMOTIDINE 40 MG/5 ML ORAL SUSPENSION NGT SCH ×2 (10:28→22:00)
[2021-06-13] MEDS: SILVER SULFADIAZINE 1% TOP CREAM 50 GM JAR TP SCH (10:29)
[2021-06-13] MEDS: ASCORBIC ACID 500 MG TABLET (FP) GT SCH ×2 (10:30→21:59)
[2021-06-13] MEDS: VASOPRESSIN 40 UNITS/100 ML BAG IV SCH ×2 (10:30→13:00)
[2021-06-13] MEDS: COLLAGENASE CLOSTRIDIUM HIST. 30 GRAMS TUBE TP SCH (14:51)
[2021-06-13] MEDS: CHLORHEXIDINE GLUCONATE 4% CLEANSER FOR DECOLONIZATION TP SCH (21:59)
[2021-06-14] MEDS: HYDROCORTISONE SOD SUCCINATE 100 MG/2 ML VIAL IVPB SCH ×4 (02:36→21:22)
[2021-06-14] MEDS: PIPERACILLIN/TAZOB 2.25 GM 2.25 GM in DEXTROSE 5%-WATER - 50 ML IVPB SCH ×4 (02:36→21:22)
[2021-06-14] MEDS: INSULIN (LEVEMIR) 100 UNITS/ML UNITS SQ SCH (06:00)
[2021-06-14] MEDS: INSULIN SLIDING SCALE (NOVOLOG) 1 VIAL SQ SCH ×2 (06:01→11:26)
[2021-06-14] MEDS: LEVOTHYROXINE NA 50 MCG TABLET (FP) GT SCH (06:01)
[2021-06-14] MEDS ORDERED: DEXTROSE 50%-WATER - 25 GM/50 ML VIAL IVPUSH PRN (07:15)
[2021-06-14] MEDS: PHENYLEPHRINE NS PREMIX 50,000 MCG/500 ML BAG CVP SCH ×3 (08:08→16:37)
[2021-06-14 09:01] LABS: HEMATOCRIT 24.1 % (32.4-45.2); HEMOGLOBIN 7.6 GM/dL (10.7-15.3); MCH 28.8 pg (25.7-33.7); MCHC 31.4 g/dl (32.0-36.0); MEAN CELL VOLUME 91.9 fl (80-96); MEAN PLT VOLUME 12.1 fl (7.5-11.1); PLATELET COUNT 67 10^3/uL (134-434); RBC 2.62 M/mm3 (3.60-5.2); RDW 19.2 % (11.6-15.6)
[2021-06-14 09:13] LABS: WHITE BLOOD COUNT 38.9 K/mm3 (4.0-10.0)
[2021-06-14 09:24] LABS: ALBUMIN 0.8 g/dl (3.4-5.0)
[2021-06-14 09:25] LABS: CALCIUM 7.9 mg/dL (8.5-10.1)
[2021-06-14 09:26] LABS: BLOOD UREA NITROGEN 80.8 mg/dL (7-18)
[2021-06-14 09:28] LABS: CREATININE 1.6 mg/dL (0.55-1.3)
[2021-06-14 09:30] LABS: BILIRUBIN,TOTAL 0.5 mg/dL (0.2-1); TOT PROT 4.1 g/dl (6.4-8.2)
[2021-06-14] MEDS ORDERED: DEXTROSE 5%-WATER - 50 ML IVPB ONE ×3 (10:04→21:19)
[2021-06-14] MEDS ORDERED: PIPERACILLIN/TAZOBACTAM 2.25 GM VIAL IVPB ONE ×3 (10:04→21:19)
[2021-06-14] MEDS: MULTIVIT-MINERALS ORAL LIQUID GT SCH (10:08)
[2021-06-14] MEDS: ASCORBIC ACID 500 MG TABLET (FP) GT SCH (10:09)
[2021-06-14] MEDS: APIXABAN 2.5 MG TABLET GT SCH ×2 (10:09→21:23)
[2021-06-14] MEDS: FLUDROCORTISONE ACETATE 0.1 MG TABLET (FP) NGT SCH (10:09)
[2021-06-14] MEDS: SEVELAMER CARBONATE 0.8 GM POWDER PACKET GT SCH ×3 (10:09→17:49)
[2021-06-14] MEDS: AMINO ACIDS/PROTEIN HYDROLYS 30 ML LIQUID.PKT GT SCH (10:09)
[2021-06-14] MEDS: COLLAGENASE CLOSTRIDIUM HIST. 30 GRAMS TUBE TP SCH (10:12)
[2021-06-14] MEDS: SILVER SULFADIAZINE 1% TOP CREAM 50 GM JAR TP SCH (10:12)
[2021-06-14] MEDS: FAMOTIDINE 40 MG/5 ML ORAL SUSPENSION NGT SCH ×2 (10:14→21:23)
[2021-06-14] MEDS ORDERED: FENTANYL NS IVPB 500 MCG/100 ML BAG IVPB ONE (11:21)
[2021-06-14] MEDS: FENTANYL NS IVPB 500 MCG/100 ML BAG IVPB SCH ×3 (11:22→16:34)
[2021-06-14 12:33] LABS: ANISOCYTOSIS 2+; MACROCYTOSIS 2+; OVALOCYTE 1+
[2021-06-14] MEDS: SODIUM BICARBONATE 8.4% 50 MEQ/50 ML DISP.SYRIN IVPUSH SCH ×2 (14:55→21:22)
[2021-06-14] MEDS ORDERED: fentaNYL CITRATE 250 MCG/5 ML VIAL ONE (16:31)
[2021-06-14] MEDS: VASOPRESSIN 40 UNITS/100 ML BAG IV SCH ×2 (16:37→16:38)
[2021-06-14] MEDS: CHLORHEXIDINE GLUCONATE 4% CLEANSER FOR DECOLONIZATION TP SCH (21:23)
[2021-06-15] MEDS ORDERED: DEXTROSE 5%-WATER - 50 ML IVPB ONE ×4 (02:04→21:09)
[2021-06-15] MEDS ORDERED: PIPERACILLIN/TAZOBACTAM 2.25 GM VIAL IVPB ONE ×4 (02:04→21:09)
[2021-06-15] MEDS: SODIUM BICARBONATE 8.4% 50 MEQ/50 ML DISP.SYRIN IVPUSH SCH ×2 (02:06→08:00)
[2021-06-15] MEDS: HYDROCORTISONE SOD SUCCINATE 100 MG/2 ML VIAL IVPB SCH ×4 (02:06→21:13)
[2021-06-15] MEDS: PIPERACILLIN/TAZOB 2.25 GM 2.25 GM in DEXTROSE 5%-WATER - 50 ML IVPB SCH ×4 (02:07→21:13)
[2021-06-15] MEDS: LEVOTHYROXINE NA 50 MCG TABLET (FP) GT SCH (06:11)
[2021-06-15] MEDS: SEVELAMER CARBONATE 0.8 GM POWDER PACKET GT SCH ×3 (07:57→17:03)
[2021-06-15] MEDS: COLLAGENASE CLOSTRIDIUM HIST. 30 GRAMS TUBE TP SCH (09:27)
[2021-06-15] MEDS: FLUDROCORTISONE ACETATE 0.1 MG TABLET (FP) NGT SCH (09:27)
[2021-06-15] MEDS: APIXABAN 2.5 MG TABLET GT SCH ×2 (09:27→21:14)
[2021-06-15] MEDS: MULTIVIT-MINERALS ORAL LIQUID GT SCH (09:27)
[2021-06-15] MEDS: FAMOTIDINE 40 MG/5 ML ORAL SUSPENSION NGT SCH ×2 (09:27→21:15)
[2021-06-15] MEDS: SILVER SULFADIAZINE 1% TOP CREAM 50 GM JAR TP SCH (09:27)
[2021-06-15] MEDS: MORPHINE SULFATE/0.9% NACL/PF 100 MG/100 ML BAG IVPB SCH (12:35)
[2021-06-15] MEDS: PHENYLEPHRINE NS PREMIX 50,000 MCG/500 ML BAG CVP SCH (19:30)
[2021-06-15] MEDS: VASOPRESSIN 40 UNITS/100 ML BAG IV SCH (21:13)
[2021-06-15] MEDS: CHLORHEXIDINE GLUCONATE 4% CLEANSER FOR DECOLONIZATION TP SCH (21:15)
[2021-06-16] MEDS: FENTANYL NS IVPB 500 MCG/100 ML BAG IVPB SCH ×2 (01:12→13:04)
[2021-06-16] MEDS: HYDROCORTISONE SOD SUCCINATE 100 MG/2 ML VIAL IVPB SCH ×4 (03:56→21:51)
[2021-06-16] MEDS: PIPERACILLIN/TAZOB 2.25 GM 2.25 GM in DEXTROSE 5%-WATER - 50 ML IVPB SCH ×4 (03:57→21:51)
[2021-06-16] MEDS: LEVOTHYROXINE NA 50 MCG TABLET (FP) GT SCH (06:01)
[2021-06-16] MEDS ORDERED: PIPERACILLIN/TAZOBACTAM 2.25 GM VIAL IVPB ONE ×4 (06:10→20:58)
[2021-06-16] MEDS ORDERED: DEXTROSE 5%-WATER - 50 ML IVPB ONE ×4 (06:10→20:59)
[2021-06-16] MEDS: MORPHINE SULFATE/0.9% NACL/PF 100 MG/100 ML BAG IVPB SCH (07:30)
[2021-06-16] MEDS: SEVELAMER CARBONATE 0.8 GM POWDER PACKET GT SCH ×3 (12:56→19:56)
[2021-06-16] MEDS: PHENYLEPHRINE NS PREMIX 50,000 MCG/500 ML BAG CVP SCH (12:57)
[2021-06-16] MEDS: FAMOTIDINE 40 MG/5 ML ORAL SUSPENSION NGT SCH ×2 (12:58→22:30)
[2021-06-16] MEDS: FLUDROCORTISONE ACETATE 0.1 MG TABLET (FP) NGT SCH (12:58)
[2021-06-16] MEDS: APIXABAN 2.5 MG TABLET GT SCH ×2 (12:58→22:30)
[2021-06-16] MEDS: MULTIVIT-MINERALS ORAL LIQUID GT SCH (12:58)
[2021-06-16] MEDS: COLLAGENASE CLOSTRIDIUM HIST. 30 GRAMS TUBE TP SCH (12:58)
[2021-06-16] MEDS: SILVER SULFADIAZINE 1% TOP CREAM 50 GM JAR TP SCH (12:59)
[2021-06-16] MEDS: VASOPRESSIN 40 UNITS/100 ML BAG IV SCH (13:04)
[2021-06-16] MEDS: CHLORHEXIDINE GLUCONATE 4% CLEANSER FOR DECOLONIZATION TP SCH (22:31)
[2021-06-17] MEDS: MORPHINE SULFATE/0.9% NACL/PF 100 MG/100 ML BAG IVPB SCH ×3 (01:15→11:30)
[2021-06-17] MEDS ORDERED: DEXTROSE 5%-WATER - 50 ML IVPB ONE ×3 (01:20→14:39)
[2021-06-17] MEDS ORDERED: PIPERACILLIN/TAZOBACTAM 2.25 GM VIAL IVPB ONE ×3 (01:20→14:38)
[2021-06-17] MEDS: PIPERACILLIN/TAZOB 2.25 GM 2.25 GM in DEXTROSE 5%-WATER - 50 ML IVPB SCH ×2 (03:30→09:03)
[2021-06-17] MEDS: HYDROCORTISONE SOD SUCCINATE 100 MG/2 ML VIAL IVPB SCH ×4 (04:17→21:21)
[2021-06-17] MEDS: LEVOTHYROXINE NA 50 MCG TABLET (FP) GT SCH (06:07)
[2021-06-17] MEDS: SEVELAMER CARBONATE 0.8 GM POWDER PACKET GT SCH ×3 (09:00→16:39)
[2021-06-17] MEDS: FAMOTIDINE 40 MG/5 ML ORAL SUSPENSION NGT SCH ×2 (09:04→21:22)
[2021-06-17] MEDS: MULTIVIT-MINERALS ORAL LIQUID GT SCH (09:04)
[2021-06-17] MEDS: APIXABAN 2.5 MG TABLET GT SCH ×2 (09:04→21:22)
[2021-06-17] MEDS: FLUDROCORTISONE ACETATE 0.1 MG TABLET (FP) NGT SCH (09:04)
[2021-06-17] MEDS: SILVER SULFADIAZINE 1% TOP CREAM 50 GM JAR TP SCH (09:05)
[2021-06-17] MEDS: PHENYLEPHRINE NS PREMIX 50,000 MCG/500 ML BAG CVP SCH ×2 (09:30→09:48)
[2021-06-17] MEDS: VASOPRESSIN 40 UNITS/100 ML BAG IV SCH ×2 (09:36→13:00)
[2021-06-17] MEDS: COLLAGENASE CLOSTRIDIUM HIST. 30 GRAMS TUBE TP SCH (11:04)
[2021-06-17] MEDS: FENTANYL NS IVPB 500 MCG/100 ML BAG IVPB SCH (11:30)
[2021-06-17] MEDS: CHLORHEXIDINE GLUCONATE 4% CLEANSER FOR DECOLONIZATION TP SCH (21:22)
[2021-06-18] MEDS: HYDROCORTISONE SOD SUCCINATE 100 MG/2 ML VIAL IVPB SCH ×3 (02:10→14:17)
[2021-06-18] MEDS: LEVOTHYROXINE NA 50 MCG TABLET (FP) GT SCH (06:30)
[2021-06-18] MEDS: SEVELAMER CARBONATE 0.8 GM POWDER PACKET GT SCH ×3 (09:00→18:11)
[2021-06-18] MEDS: PHENYLEPHRINE NS PREMIX 50,000 MCG/500 ML BAG CVP SCH (09:30)
[2021-06-18] MEDS: APIXABAN 2.5 MG TABLET GT SCH (09:36)
[2021-06-18] MEDS: FLUDROCORTISONE ACETATE 0.1 MG TABLET (FP) NGT SCH (09:36)
[2021-06-18] MEDS: MULTIVIT-MINERALS ORAL LIQUID GT SCH (09:36)
[2021-06-18] MEDS: FAMOTIDINE 40 MG/5 ML ORAL SUSPENSION NGT SCH (09:37)
[2021-06-18] MEDS: SILVER SULFADIAZINE 1% TOP CREAM 50 GM JAR TP SCH (09:38)
[2021-06-18] MEDS: COLLAGENASE CLOSTRIDIUM HIST. 30 GRAMS TUBE TP SCH (09:41)
[2021-06-18] MEDS: MORPHINE SULFATE/0.9% NACL/PF 100 MG/100 ML BAG IVPB SCH ×2 (11:00→15:19)
[2021-06-18] MEDS ORDERED: PIPERACILLIN/TAZOB 3.375 GM 3.375 GM in DEXTROSE 5%-WATER - 50 ML IVPB ONE ×2 (13:50→14:30)
[2021-06-18] MEDS ORDERED: PIPERACILLIN/TAZOBACTAM 3.375 GM VIAL IVPB ONE ×2 (13:57→14:15)
[2021-06-18] MEDS ORDERED: DEXTROSE 5%-WATER - 50 ML IVPB ONE ×2 (13:58→14:15)
[2021-06-18 15:09] VITALS: BP 39/20; PULSE 33; TEMP 94.7
== END 2021-06-18 20:34 | disposition expired | DRG 4 ==
LOC: JER 17:25 → JERBED 19:33 → JICU 04-28 05:10 → J6S 05-07 18:45 → JICU 05-13 11:25 → J5S 06-04 19:01 → JICU 06-07 06:49
PROVIDERS: ADMIT Internal Medicine Pulmonary Disease; ATTEND Internal Medicine
PROC: 5A1955Z Respiratory Ventilation, Greater than 96 Consecutive Hours (ICD-10-PCS; 2021-04-28)
PROC: 0BH17EZ Insertion of Endotracheal Airway into Trachea, Via Natural or Artificial Opening (ICD-10-PCS; 2021-04-28)
PROC: 05HM33Z Insertion of Infusion Device into Right Internal Jugular Vein, Percutaneous Approach (ICD-10-PCS; 2021-04-28)
PROC: B513ZZA Fluoroscopy of Right Jugular Veins, Guidance (ICD-10-PCS; 2021-04-28)
PROC: 30233N1 Transfusion of Nonautologous Red Blood Cells into Peripheral Vein, Percutaneous Approach (ICD-10-PCS; 2021-05-03)
PROC: 05HB33Z Insertion of Infusion Device into Right Basilic Vein, Percutaneous Approach (ICD-10-PCS; 2021-05-13)
PROC: B51MZZA Fluoroscopy of Right Upper Extremity Veins, Guidance (ICD-10-PCS; 2021-05-13)
PROC: 0B113F4 Bypass Trachea to Cutaneous with Tracheostomy Device, Percutaneous Approach (ICD-10-PCS; principal; 2021-05-30)
PROC: 0BJ08ZZ Inspection of Tracheobronchial Tree, Via Natural or Artificial Opening Endoscopic (ICD-10-PCS; 2021-05-30)
PROC: 05HN33Z Insertion of Infusion Device into Left Internal Jugular Vein, Percutaneous Approach (ICD-10-PCS; 2021-06-01)
PROC: B544ZZA Ultrasonography of Left Jugular Veins, Guidance (ICD-10-PCS; 2021-06-01)
DX: A41.02 Sepsis due to Methicillin resistant Staphylococcus aureus (principal); J95.811 Postprocedural pneumothorax; R53.2 Functional quadriplegia; R65.21 Severe sepsis with septic shock; J80 Acute respiratory distress syndrome; J69.0 Pneumonitis due to inhalation of food and vomit; N18.6 End stage renal disease; N17.9 Acute kidney failure, unspecified; L97.909 Non-pressure chronic ulcer of unspecified part of unspecified lower leg with unspecified severity; E87.0 Hyperosmolality and hypernatremia; N39.0 Urinary tract infection, site not specified; E87.1 Hypo-osmolality and hyponatremia; E87.2 Acidosis; I24.8 Other forms of acute ischemic heart disease; N20.1 Calculus of ureter; N13.6 Pyonephrosis; I12.0 Hypertensive chronic kidney disease with stage 5 chronic kidney disease or end stage renal disease; E11.65 Type 2 diabetes mellitus with hyperglycemia; E11.22 Type 2 diabetes mellitus with diabetic chronic kidney disease; E03.9 Hypothyroidism, unspecified; E11.621 Type 2 diabetes mellitus with foot ulcer; D64.9 Anemia, unspecified; K21.9 Gastro-esophageal reflux disease without esophagitis; I48.91 Unspecified atrial fibrillation; L89.209 Pressure ulcer of unspecified hip, unspecified stage; E78.5 Hyperlipidemia, unspecified; I25.10 Atherosclerotic heart disease of native coronary artery without angina pectoris; I95.9 Hypotension, unspecified; E87.5 Hyperkalemia; E11.649 Type 2 diabetes mellitus with hypoglycemia without coma; L89.152 Pressure ulcer of sacral region, stage 2; E83.51 Hypocalcemia; B96.5 Pseudomonas (aeruginosa) (mallei) (pseudomallei) as the cause of diseases classified elsewhere; Z98.61 Coronary angioplasty status
CPT/HCPCS: 36415; 36430; 36511; 36600; 70450-TC; 70486-TC; 71045-TC-FY; 74018-TC-FY; 74176-TC; 76775-TC; 80048; 80053; 81003; 82010; 82272; 82436; 82550; 82570; 82803; 82962; 83605; 83735; 84100; 84133; 84156; 84300; 84439; 84443; 84478; 84484; 85025; 85027; 85610; 85730; 86803; 86850; 86900; 86901; 86922; 87040; 87070; 87077; 87086; 87186; 87205; 87324; 87340; 87449; 93005; 93010; 93306-TC; 94002; 94640; 97161-GP; 99291; C9803-CS; E0186; G0480; J0637; J0878; J3490; P9038; P9047; P9058; Q5106; U0003; U0005